=== PATIENT | male | born 1975 | race Caucasian/White ===

== ENCOUNTER 2018-02-23 19:28 | Emergency (ER) | payer SELFPAY ==
[2018-02-23 20:35] LABS: Absolute Lymphocytes (CBC) 2.5 K/uL (0.7-4.9); Absolute Monocytes 0.8 K/uL (0.1-1.3); Absolute Neutrophil 10.5 K/uL (1.8-8.0); Eosinophils % 1.2 % (0-4.4); Hematocrit 47.5 % (39.6-49.0); MCH 30.3 pg (27.0-35.0); MCV 89.2 fL (80-100); MPV 7.9 fL (7.6-11.3); Monocytes % 5.8 % (3.3-12.3); RBC Red Blood Cell Count 5.32 M/uL (4.33-5.43)
[2018-02-23 20:39] LABS: Protime INR 1.14
[2018-02-23 20:58] LABS: ALT/SGPT 30 U/L (12-78); AST/SGOT 18 U/L (15-37); Albumin 3.4 g/dL (3.4-5.0); Alkaline Phosphatase 85 U/L (45-117); BUN Blood Urea Nitrogen 14 mg/dL (7-18); Bicarbonate 27 mmol/L (21-32); Bilirubin Direct 0.1 mg/dL (0-0.2); Bilirubin Total 0.4 mg/dL (0.2-1.0); Glucose Level 163 mg/dL (74-106); Potassium 3.7 mmol/L (3.5-5.1); Protein, Total 7.5 g/dL (6.4-8.2); Sodium Level 141 mmol/L (136-145)
[2018-02-23] MEDS ORDERED: NICOTINE 21 MG/PAT TD ONE (22:47)
[2018-02-23] MEDS ORDERED: NA CHLORIDE 0.9% 1,000 ML ONE (22:52)
[2018-02-24 00:16] LABS: Barbiturates NEGATIVE (NEGATIVE); Benzodiazepines NEGATIVE (NEGATIVE); Cocaine NEGATIVE (NEGATIVE); METHAMPHETAM NEGATIVE (NEGATIVE); Methadone NEGATIVE (NEGATIVE); Opiates NEGATIVE (NEGATIVE); Phencyclidine NEGATIVE (NEGATIVE); THC Cannibis NEGATIVE (NEGATIVE)
[2018-02-24 02:54] LABS: Absolute Lymphocytes (CBC) 3.9 K/uL (0.7-4.9); Absolute Monocytes 1.2 K/uL (0.1-1.3); Absolute Neutrophil 8.6 K/uL (1.8-8.0); Hematocrit 46.9 % (39.6-49.0); Lymphocytes % 27.8 % (15.3-44.8); MCV 88.5 fL (80-100); MPV 8.1 fL (7.6-11.3); Monocytes % 8.2 % (3.3-12.3)
[2018-02-24 04:03] LABS: Urine Blood NEGATIVE (NEG); Urine Glucose NEGATIVE (NEG); Urine Protein NEGATIVE (NEG); Urine Specific Gravity 1.025 (1.005-1.030)
--- NOTE | 2018-02-24 06:59 | EKG ---
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
--- NOTE | 2018-02-24 11:41 | ER ---
Nurse's Notes [facility] Name: Yassine Guerrero Age: 42 yrs Sex: Male : 1975 Arrival Date: 02/23/2018 Time: 19:30 Bed 5 Private MD: Diagnosis: Suicidal ideations Presentation: 02/23 19:41 Presenting complaint: EMS states: EMS reports pt stated he was walking around town and ea had plan to hang himself with an extension cord but decided to call for help instead. Pt alert and oriented x 4. Transition of care: patient was not received from another setting of care. Onset of symptoms was February 23, 2018. Risk Assessment: Do you want to hurt yourself or someone else? Patient reports desire/thoughts of hurting themselves or someone else. Provider notified. Risk Assessment: Do you want to hurt yourself or someone else?. Initial Sepsis Screen: Does the patient meet any 2 criteria? No. Patient's initial sepsis screen is negative. Does the patient have a suspected source of infection? No. Patient's initial sepsis screen is negative. Care prior to arrival: BP 127/73, Pulse: 122, no complaints of pain. 19:41 Method Of Arrival: EMS: [facility] ea 19:41 Acuity: IRINEO 2 ea Triage Assessment: 19:49 General: Appears uncomfortable, Behavior is cooperative, crying. Pain: Denies pain. ea Cardiovascular: Patient's skin is warm and dry. Respiratory: Airway is patent Respiratory effort is even, unlabored, Respiratory pattern is regular, symmetrical. Derm: Skin is pink, warm \T\ dry. Musculoskeletal: Circulation, motion, and sensation intact. 19:49 General: Pt reports he is having SI and had a plan earlier this evening. ea Historical: - Allergies: 19:48 No Known Allergies; ea - Home Meds: 19:48 None [Active]; ea - PMHx: 19:48 Bipolar disorder; PTSD; Rheumatoid Arthritis; CPVC; ea - PSHx: 19:48 tendon reconstruction; ea - Immunization history:: Adult Immunizations up to date. - Social history:: Smoking status: Patient uses tobacco products, smokes one pack cigarettes per day. - Ebola Screening: : No symptoms or risks identified at this time. Screenin:51 Abuse screen: Denies threats or abuse. Nutritional screening: No deficits noted. ea Tuberculosis screening: No symptoms or risk factors identified. Fall Risk None identified. Assessment: 19:50 Reassessment: see triage assessment. ea 20:50 Reassessment: Patient and/or family updated on plan of care and expected duration. Pain ea level reassessed. Patient is alert, oriented x 3, equal unlabored respirations, skin warm/dry/pink. 21:00 Reassessment: Patient and/or family updated on plan of care and expected duration. Pain ea level reassessed. Patient is alert, oriented x 3, equal unlabored respirations, skin warm/dry/pink. 22:00 Reassessment: Patient and/or family updated on plan of care and expected duration. Pain ea level reassessed. Patient is alert, oriented x 3, equal unlabored respirations, skin warm/dry/pink. 23:50 Reassessment: Patient and/or family updated on plan of care and expected duration. Pain ea level reassessed. Patient is alert, oriented x 3, equal unlabored respirations, skin warm/dry/pink. 02/24 00:15 Reassessment: Pt resting with eyes closed, respirations even and unlabored. Chest ea expansions even and symmetrical. No s/s of pain or discomfort noted at this time. Sitter at bedside. 01:00 Reassessment: Patient and/or family updated on plan of care and expected duration. Pain ea level reassessed. Patient is alert, oriented x 3, equal unlabored respirations, skin warm/dry/pink. [place] at bedside. 02:50 Reassessment: Patient and/or family updated on plan of care and expected duration. Pain ea level reassessed. Patient is alert, oriented x 3, equal unlabored respirations, skin warm/dry/pink. Sitter at bedside. 03:08 Reassessment: Patient and/or family updated on plan of care and expected duration. Pain ea level reassessed. Patient is alert, oriented x 3, equal unlabored respirations, skin warm/dry/pink. sitter at bedside. Pt removed nicotine patch stated he needed to go outside to smoke a cigarette. Provider notified. Pt educated on not being able to go out to smoke per policy, nicotine patch offered, pt refused at this time. Pt instructed on need for transfer, verbalized the understanding of instruction. 04:35 Reassessment: Patient and/or family updated on plan of care and expected duration. Pain ea level reassessed. Patient is alert, oriented x 3, equal unlabored respirations, skin warm/dry/pink. 05:43 Reassessment: Patient and/or family updated on plan of care and expected duration. Pain ea level reassessed. Patient is alert, oriented x 3, equal unlabored respirations, skin warm/dry/pink. sitter at bedside. 06:09 Reassessment: Patient and/or family updated on plan of care and expected duration. Pain ea level reassessed. Patient is alert, oriented x 3, equal unlabored respirations, skin warm/dry/pink. Sitter at bedside. 07:22 Reassessment: Pt is resting at this time, eyes closed, respirations remain even and ss unlabored. [place] building tech remains sitter with patient. 08:15 Reassessment: Patient appears in no apparent distress at this time. Patient and/or hb family updated on plan of care and expected duration. Pain level reassessed. Patient is alert, oriented x 3, equal unlabored respirations, skin warm/dry/pink. Sitter remains at bedside. 09:15 Reassessment: Patient appears in no apparent distress at this time. No changes from hb previously documented assessment. Patient and/or family updated on plan of care and expected duration. Pain level reassessed. Patient is alert, oriented x 3, equal unlabored respirations, skin warm/dry/pink. Sitter remains at bedside. 10:15 Reassessment: Patient appears in no apparent distress at this time. Patient and/or hb family updated on plan of care and expected duration. Pain level reassessed. Patient is alert, oriented x 3, equal unlabored respirations, skin warm/dry/pink. Sitter remains at bedside. 11:54 Reassessment: Patient appears in no apparent distress at this time. Patient and/or ss family updated on plan of care and expected duration. Pain level reassessed. Report called to ZULAY Bravo at [facility] in [place]. Vital Signs: 02/23 19:48 BP 161 / 78; Pulse 112; Resp 18; Temp 98; Pulse Ox 97% on R/A; Weight 181.44 kg; Height ea 5 ft. 8 in. (172.72 cm); Pain 0/10; 23:59 BP 144 / 83; Pulse 82; Resp 20; Pulse Ox 97% on R/A; ra1 02/24 04:05 BP 142 / 83; Pulse 74; Resp 20; Temp 98.4; Pulse Ox 94% on R/A; ra1 07:40 BP 145 / 82; Pulse 73; Resp 18; Temp 97.1; Pulse Ox 94% ; Pain 0/10; ap 11:23 BP 134 / 64; Pulse 75; Resp 18; Temp 98.0; Pulse Ox 95% ; Pain 0/10; ap 02/23 19:48 Body Mass Index 60.82 (181.44 kg, 172.72 cm) ea ED Course: 02/23 15:00 Safety checks: Items removed: yes. Door open/sign placed on door: yes. Family/friend oe present: no. Sitter present: Yes. 19:30 Patient arrived in ED. al2 19:30 Safety checks: Items removed: yes. Door open/sign placed on door: yes. Family/friend oe present: no. Sitter present: Yes. 19:40 Yessica Escamilla RN is Primary Nurse. ea 19:40 Safety Checks: Personal items have been removed. Items given to security The door is ea open or patient has been placed in a hallway bed/chair. Sitter present at this time. 19:41 Patient has correct armband on for positive identification. Placed in gown. Bed in low ea position. Call light in reach. Valuables inventory done. Pt valuables given to security. Sitter at bedside, room doors open. Pt has no visitors at this time. . 19:45 Safety Checks: Personal items have been removed. The door is open or patient has been ea placed in a hallway bed/chair. Sitter present at this time. 19:45 Safety checks: Items removed: yes. Door open/sign placed on door: yes. Family/friend oe present: no. Sitter present: Yes. 19:46 Triage completed. ea 19:50 Manan Madsen MD is Attending Physician. 19:50 Arm band placed on right wrist. Patient placed in an exam room, on a stretcher, on ea pulse oximetry. 20:00 Safety Checks: Personal items have been removed. The door is open or patient has been ea placed in a hallway bed/chair. Sitter present at this time. 20:00 Safety checks: Items removed: yes. Door open/sign placed on door: yes. Family/friend oe present: no. Sitter present: Yes. 20:15 Safety Checks: Personal items have been removed. The door is open or patient has been ea placed in a hallway bed/chair. Sitter present at this time. 20:15 Safety checks: Items removed: yes. Door open/sign placed on door: yes. Family/friend oe present: no. Sitter present: Yes. 20:30 Safety Checks: Personal items have been removed. The door is open or patient has been ea placed in a hallway bed/chair. Sitter present at this time. 20:30 Safety checks: Items removed: yes. Door open/sign placed on door: yes. Family/friend oe present: no. Sitter present: Yes. 20:45 Safety checks: Items removed: yes. Door open/sign placed on door: yes. Family/friend oe present: no. Sitter present: Yes. 21:00 Safety checks: Items removed: yes. Door open/sign placed on door: yes. Family/friend oe present: no. Sitter present: Yes. 21:12 Inserted saline lock: 20 gauge in right antecubital area, using aseptic technique. oe Blood collected. 21:15 Safety checks: Items removed: yes. Door open/sign placed on door: yes. Family/friend oe present: no. Sitter present: Yes. 21:30 Safety checks: Items removed: yes. Door open/sign placed on door: yes. Family/friend oe present: no. Sitter present: Yes. 21:45 Safety checks: Items removed: yes. Door open/sign placed on door: yes. Family/friend oe present: no. Sitter present: Yes. 22:00 Safety checks: Items removed: yes. Door open/sign placed on door: yes. Family/friend oe present: no. Sitter present: Yes. 22:15 Safety Checks: Personal items have been removed. The door is open or patient has been ra1 placed in a hallway bed/chair. There are no family/friend visitors at this time Sitter present at this time. 22:30 Safety Checks: Personal items have been removed. The door is open or patient has been ra1 placed in a hallway bed/chair. There are no family/friend visitors at this time Sitter present at this time. 22:38 Attending Physician role handed off by Manan Madsen MD pkl 22:38 Clark Kramer MD is Attending Physician. pkl 22:45 Safety Checks: Personal items have been removed. The door is open or patient has been ra1 placed in a hallway bed/chair. There are no family/friend visitors at this time Sitter present at this time. 23:00 Safety Checks: Personal items have been removed. The door is open or patient has been ra1 placed in a hallway bed/chair. There are no family/friend visitors at this time Sitter present at this time. 23:15 Safety Checks: Personal items have been removed. The door is open or patient has been ra1 placed in a hallway bed/chair. There are no family/friend visitors at this time Sitter present at this time. 23:30 Safety Checks: Personal items have been removed. The door is open or patient has been ra1 placed in a hallway bed/chair. There are no family/friend visitors at this time Sitter present at this time. 23:45 Safety Checks: Personal items have been removed. The door is open or patient has been ra1 placed in a hallway bed/chair. There are no family/friend visitors at this time Sitter present at this time. Stood at bedside, gait steady. void per urinal, clear, dark yellow urine, with odor, specimen collected. 02/24 00:00 Safety Checks: Personal items have been removed. The door is open or patient has been ra1 placed in a hallway bed/chair. There are no family/friend visitors at this time Sitter present at this time. 00:15 Safety Checks: Personal items have been removed. The door is open or patient has been ra1 placed in a hallway bed/chair. There are no family/friend visitors at this time Sitter present at this time. 00:29 Safety Checks: Personal items have been removed. The door is open or patient has been ra1 placed in a hallway bed/chair. There are no family/friend visitors at this time Sitter present at this time. 00:45 Safety Checks: Personal items have been removed. The door is open or patient has been ra1 placed in a hallway bed/chair. There are no family/friend visitors at this time Sitter present at this time. 01:00 Safety Checks: Personal items have been removed. The door is open or patient has been ra1 placed in a hallway bed/chair. There are no family/friend visitors at this time Sitter present at this time. 01:15 Safety Checks: Personal items have been removed. The door is open or patient has been ra1 placed in a hallway bed/chair. There are no family/friend visitors at this time Sitter present at this time. 01:29 Safety Checks: Personal items have been removed. The door is open or patient has been ra1 placed in a hallway bed/chair. There are no family/friend visitors at this time Sitter present at this time. Other: Ticket Broker from [facility] at bedside. IVF complete. 01:45 Safety Checks: Personal items have been removed. The door is open or patient has been ra1 placed in a hallway bed/chair. There are no family/friend visitors at this time Sitter present at this time. 02:00 Safety Checks: Personal items have been removed. The door is open or patient has been ra1 placed in a hallway bed/chair. There are no family/friend visitors at this time Sitter present at this time. Other: IVF complete. 20G RAC flushed with 10cc NS, 5cc blood wasted, 3cc blood obtained for labs, then flushed with 10cc NS, tolerated well. 02:15 Safety Checks: Personal items have been removed. The door is open or patient has been ra1 placed in a hallway bed/chair. There are no family/friend visitors at this time Sitter present at this time. Other: Crying. Calm and cooperative, following commands. 02:30 Safety Checks: Personal items have been removed. The door is open or patient has been ra1 placed in a hallway bed/chair. There are no family/friend visitors at this time Sitter present at this time. Other: Continues sitting up in bed. no complaints or concerns expressed. 02:45 Safety Checks: Personal items have been removed. The door is open or patient has been ra1 placed in a hallway bed/chair. There are no family/friend visitors at this time Sitter present at this time. 03:00 Safety Checks: Personal items have been removed. The door is open or patient has been ra1 placed in a hallway bed/chair. There are no family/friend visitors at this time Sitter present at this time. Other: Patient removed his nicotine patch from [facility] and disposed into trash bin. 03:15 Safety Checks: Personal items have been removed. The door is open or patient has been ra1 placed in a hallway bed/chair. There are no family/friend visitors at this time Sitter present at this time. 03:30 Safety Checks: Personal items have been removed. The door is open or patient has been ra1 placed in a hallway bed/chair. There are no family/friend visitors at this time Sitter present at this time. 03:45 Safety Checks: Personal items have been removed. The door is open or patient has been ra1 placed in a hallway bed/chair. There are no family/friend visitors at this time Sitter present at this time. Other: Sitting up in bed, watching on. 04:00 Safety Checks: Personal items have been removed. The door is open or patient has been ra1 placed in a hallway bed/chair. There are no family/friend visitors at this time Sitter present at this time. 04:15 Safety Checks: Personal items have been removed. The door is open or patient has been ra1 placed in a hallway bed/chair. There are no family/friend visitors at this time Sitter present at this time. Other: Mental Health Officer at bedside. Patient calm and cooperative. 04:30 Safety Checks: Personal items have been removed. The door is open or patient has been ra1 placed in a hallway bed/chair. There are no family/friend visitors at this time Sitter present at this time. Other: Stands at bedside. Voids per urinal, 350cc of clear dark yellow urine noted. 04:45 Safety Checks: Personal items have been removed. The door is open or patient has been ra1 placed in a hallway bed/chair. There are no family/friend visitors at this time Sitter present at this time. 05:00 Safety Checks: Personal items have been removed. The door is open or patient has been ra1 placed in a hallway bed/chair. There are no family/friend visitors at this time Sitter present at this time. 05:15 Safety Checks: Personal items have been removed. The door is open or patient has been ra1 placed in a hallway bed/chair. There are no family/friend visitors at this time Sitter present at this time. 05:30 Safety Checks: Personal items have been removed. The door is open or patient has been ra1 placed in a hallway bed/chair. There are no family/friend visitors at this time Sitter present at this time. 05:45 Safety Checks: Personal items have been removed. The door is open or patient has been ra1 placed in a hallway bed/chair. There are no family/friend visitors at this time Sitter present at this time. Other: Lying in bed,supine. No distress expressed or observed. Resp even and unlabored. 06:00 Safety Checks: Personal items have been removed. The door is open or patient has been ra1 placed in a hallway bed/chair. There are no family/friend visitors at this time Sitter present at this time. 06:15 Safety Checks: Personal items have been removed. The door is open or patient has been ra1 placed in a hallway bed/chair. There are no family/friend visitors at this time Sitter present at this time. 06:29 Safety Checks: Personal items have been removed. The door is open or patient has been ra1 placed in a hallway bed/chair. There are no family/friend visitors at this time Sitter present at this time. Other: AAOx4. Ambulating in room, gait steady. 06:45 Safety Checks: Personal items have been removed. The door is open or patient has been ra1 placed in a hallway bed/chair. There are no family/friend visitors at this time Sitter present at this time. Other: Resting in bed, lying on left side. resp even and unlabored. no distress. 07:00 Safety Checks: Personal items have been removed. The door is open or patient has been ra1 placed in a hallway bed/chair. There are no family/friend visitors at this time Sitter present at this time. 07:01 Report given to Oriana BISWAS and Pepper BISWAS. daniel 07:02 Safety checks: Items removed: yes. Door open/sign placed on door: yes. Family/friend em1 present: no. Sitter present: Yes. 07:11 Beto Overton PA is PHCP. cp 07:15 Safety checks: Items removed: yes. Door open/sign placed on door: yes. Family/friend em1 present: no. Sitter present: Yes. 07:30 Safety checks: Items removed: yes. Door open/sign placed on door: yes. Family/friend ap present: no. Sitter present: Yes. 07:45 Safety checks: Items removed: yes. Door open/sign placed on door: yes. Family/friend ap present: no. Sitter present: Yes. Safety checks: Items removed: yes. 08:00 Safety checks: Items removed: yes. Door open/sign placed on door: yes. Family/friend ap present: no. Sitter present: Yes. 08:15 Safety checks: Items removed: yes. Door open/sign placed on door: yes. Family/friend ap present: no. Sitter present: Yes. 08:30 Safety checks: Items removed: yes. Door open/sign placed on door: yes. Family/friend ap present: no. Sitter present: Yes. 08:45 Safety checks: Items removed: yes. Door open/sign placed on door: yes. Family/friend ap present: no. Sitter present: Yes. 09:00 Safety checks: Items removed: yes. Door open/sign placed on door: yes. Family/friend ap present: no. Sitter present: Yes. 09:15 Safety checks: Items removed: yes. Door open/sign placed on door: yes. Family/friend ap present: no. Sitter present: Yes. 09:30 Safety checks: Items removed: yes. Door open/sign placed on door: no. Family/friend ap present: no. Sitter present: Yes. 09:45 Safety checks: Items removed: yes. Door open/sign placed on door: yes. Family/friend ap present: no. Sitter present: Yes. 10:00 Safety checks: Items removed: yes. Door open/sign placed on door: yes. Family/friend ap present: no. Sitter present: Yes. 10:15 Safety checks: Items removed: yes. Door open/sign placed on door: yes. Family/friend ap present: no. Sitter present: Yes. 10:30 Safety checks: Items removed: yes. Door open/sign placed on door: yes. Family/friend ap present: Sitter present: Yes. No. 10:45 Safety checks: Items removed: yes. Door open/sign placed on door: yes. Family/friend ap present: yes. no. Sitter present: Yes. 11:00 Safety checks: Items removed: yes. Door open/sign placed on door: yes. Family/friend ap present: yes. no. Sitter present: Yes. 11:15 Safety checks: Items removed: yes. Door open/sign placed on door: yes. Family/friend ap present: no. Sitter present: Yes. 11:30 Safety checks: Items removed: yes. Door open/sign placed on door: yes. Family/friend em1 present: no. Sitter present: Yes. 11:45 Safety checks: Items removed: yes. Door open/sign placed on door: yes. Family/friend em1 present: no. Sitter present: Yes. 12:00 Safety checks: Items removed: yes. Door open/sign placed on door: yes. Family/friend em1 present: no. Sitter present: Yes. 12:15 Safety checks: Items removed: yes. Door open/sign placed on door: yes. Family/friend em1 present: no. Sitter present: Yes. 12:30 Safety checks: Items removed: yes. Door open/sign placed on door: yes. Family/friend ap present: yes. no. Sitter present: Yes. 12:45 Safety checks: Items removed: yes. Door open/sign placed on door: yes. Family/friend ap present: no. Sitter present: Yes. No. 13:00 Safety checks: Items removed: yes. Door open/sign placed on door: yes. Family/friend ap present: no. Sitter present: Yes. 13:15 Safety checks: Items removed: yes. Door open/sign placed on door: yes. Family/friend ap present: no. Sitter present: Yes. 13:25 No provider procedures requiring assistance completed. IV discontinued, intact, ss bleeding controlled, No redness/swelling at site. Pressure dressing applied. Administered Medications: 02/23 22:48 Drug: NS 0.9% 1000 ml Route: IV; Rate: 1000 ml; Site: right antecubital; ea 22:49 Drug: Nicotine 21 mg/24 hr 1 patches {Note: patch placed on right arm.} Route: ea Transdermal; Site: affected area; Outcome: 02/24 11:40 ER care complete, transfer ordered by . cp 11:54 Condition: good ss 11:54 Instructed on the need for transfer. 13:25 Transferred by ground EMS Transfer form completed. Note: To Anisha Pedrocox monett 13:26 Patient left the ED. ss Signatures: Clark Kramer MD MD pkl [place], [place] em1 Oriana Urbina RN RN ss Beto Overton PA PA cp Ponce, Ana ap Baxter, Heather, RN RN Irving Coon oe Yessica Escamilla RN RN ea Starr, Gregory, MD MD gs Love, Toro Patel ra Corrections: (The following items were deleted from the chart) 02/23 21:17 21:15 Safety checks: Items removed: yes. Door open/sign placed on door: yes. oe Family/friend present: no. Sitter present: Yes. oe 21:20 10:00 Safety checks: Items removed: yes. Door open/sign placed on door: yes. oe Family/friend present: no. Sitter present: Yes. oe 22:22 22:19 Safety Checks: Personal items have been removed. The door is open or patient has ra1 been placed in a hallway bed/chair. There are no family/friend visitors at this time Sitter present at this time. ra1 23:50 23:47 Safety Checks: Personal items have been removed. The door is open or patient has ra1 been placed in a hallway bed/chair. There are no family/friend visitors at this time Sitter present at this time. Stood at bedside, gait steady. void per urinal, clear, dark yellow urine, with odor, specimen collected. ra1 02/24 00:23 00:22 Safety Checks: Personal items have been removed. The door is open or patient has ra1 been placed in a hallway bed/chair. There are no family/friend visitors at this time Sitter present at this time. ra1 03:19 03:08 Reassessment: Patient and/or family updated on plan of care and expected ea duration. Pain level reassessed. Patient is alert, oriented x 3, equal unlabored respirations, skin warm/dry/pink. sitter at bedside ea 04:22 04:15 Safety Checks: Personal items have been removed. The door is open or patient has ra1 been placed in a hallway bed/chair. There are no family/friend visitors at this time Sitter present at this time. ra1
--- NOTE | 2018-02-24 11:41 | EDPHYS ---
Physician Documentation [facility] Name: Yassine Guerrero Age: 42 yrs Sex: Male : 1975 Arrival Date: 02/23/2018 Time: 19:30 Bed 5 Private MD: ED Physician Clark Kramer HPI: 02/23 20:59 This 42 yrs old Male presents to ER via EMS with complaints of Suicidal gs Ideation. 20:59 The patient presents to the emergency department with anxiety, depression, suicide gs ideation. Onset: The symptoms/episode began/occurred today. Past psychiatric history: Prior diagnosis: bipolar disorder. Associated signs and symptoms: Pertinent negatives: chest pain, chills, delusions, hallucinations. Severity of symptoms: At their worst the symptoms were severe in the emergency department the symptoms are unchanged. The patient has experienced similar episodes in the past, a few times. Historical: - Allergies: 19:48 No Known Allergies; ea - Home Meds: 19:48 None [Active]; ea - PMHx: 19:48 Bipolar disorder; PTSD; Rheumatoid Arthritis; CPVC; ea - PSHx: 19:48 tendon reconstruction; ea - Immunization history:: Adult Immunizations up to date. - Social history:: Smoking status: Patient uses tobacco products, smokes one pack cigarettes per day. - Ebola Screening: : No symptoms or risks identified at this time. ROS: 20:59 All other systems are negative. gs Exam: 20:59 Head/Face: Normocephalic, atraumatic. Eyes: Pupils equal round and reactive to light, gs extra-ocular motions intact. Lids and lashes normal. Conjunctiva and sclera are non-icteric and not injected. Cornea within normal limits. Periorbital areas with no swelling, redness, or edema. ENT: Nares patent. No nasal discharge, no septal abnormalities noted. Tympanic membranes are normal and external auditory canals are clear. Oropharynx with no redness, swelling, or masses, exudates, or evidence of obstruction, uvula midline. Mucous membranes moist. Neck: Trachea midline, no thyromegaly or masses palpated, and no cervical lymphadenopathy. Supple, full range of motion without nuchal rigidity, or vertebral point tenderness. No Meningismus. Chest/axilla: Normal chest wall appearance and motion. Nontender with no deformity. No lesions are appreciated. Cardiovascular: Regular rate and rhythm with a normal S1 and S2. No gallops, murmurs, or rubs. Normal PMI, no JVD. No pulse deficits. Respiratory: Lungs have equal breath sounds bilaterally, clear to auscultation and percussion. No rales, rhonchi or wheezes noted. No increased work of breathing, no retractions or nasal flaring. Abdomen/GI: Soft, non-tender, with normal bowel sounds. No distension or tympany. No guarding or rebound. No evidence of tenderness throughout. Back: No spinal tenderness. No costovertebral tenderness. Full range of motion. Skin: Warm, dry with normal turgor. Normal color with no rashes, no lesions, and no evidence of cellulitis. MS/ Extremity: Pulses equal, no cyanosis. Neurovascular intact. Full, normal range of motion. Neuro: Awake and alert, GCS 15, oriented to person, place, time, and situation. Cranial nerves II-XII grossly intact. Motor strength 5/5 in all extremities. Sensory grossly intact. Cerebellar exam normal. Normal gait. 20:59 Constitutional: The patient appears alert, awake. 20:59 Psych: Behavior/mood is sad. Affect is flat, Oriented to person, place, time, Patient having thoughts of suicide. Plan for suicide is hang self Judgement / Insight is impaired. Delusions/hallucinations are not present. Vital Signs: 19:48 BP 161 / 78; Pulse 112; Resp 18; Temp 98; Pulse Ox 97% on R/A; Weight 181.44 kg; Height ea 5 ft. 8 in. (172.72 cm); Pain 0/10; 23:59 BP 144 / 83; Pulse 82; Resp 20; Pulse Ox 97% on R/A; ra1 02/24 04:05 BP 142 / 83; Pulse 74; Resp 20; Temp 98.4; Pulse Ox 94% on R/A; ra1 07:40 BP 145 / 82; Pulse 73; Resp 18; Temp 97.1; Pulse Ox 94% ; Pain 0/10; ap 11:23 BP 134 / 64; Pulse 75; Resp 18; Temp 98.0; Pulse Ox 95% ; Pain 0/10; ap 02/23 19:48 Body Mass Index 60.82 (181.44 kg, 172.72 cm) ea MDM: 02/23 19:57 Patient medically screened. gs 20:59 Differential diagnosis: drug withdrawal. acute psychotic break, depression, si. Data gs reviewed: vital signs, nurses notes, lab test result(s), EKG. Response to treatment: There is no appreciated change of the patient's symptoms at this time. 02/23 19:57 Order name: Acetaminophen 02/23 19:57 Order name: Basic Metabolic Panel 02/23 19:57 Order name: CBC with Diff; Complete Time: 22:39 02/23 19:57 Order name: ETOH Level; Complete Time: 22:39 02/23 19:57 Order name: Hepatic Function; Complete Time: 22:39 02/23 19:57 Order name: PT-INR; Complete Time: 22:39 02/23 19:57 Order name: Ptt, Activated; Complete Time: 22:39 02/23 19:57 Order name: Salicylate; Complete Time: 22:39 02/23 19:57 Order name: Urine Drug Screen; Complete Time: 04:53 02/23 19:57 Order name: Acetaminophen Level; Complete Time: 22:39 EDWV 02/23 19:57 Order name: Basic Metabolic Panel; Complete Time: 22:39 EDWV 02/23 23:46 Order name: Urine Dipstick--Ancillary (enter results); Complete Time: 04:53 02/24 01:08 Order name: CBC with Diff; Complete Time: 04:53 ea 02/23 19:57 Order name: EKG; Complete Time: 19:58 02/23 19:57 Order name: EKG - Nurse/Tech; Complete Time: 20:54 02/23 19:57 Order name: IV Saline Lock; Complete Time: 20:54 02/23 19:57 Order name: Labs collected and sent; Complete Time: 20:54 02/23 19:57 Order name: Urine Dipstick-Ancillary (obtain specimen); Complete Time: 20:54 02/24 07:31 Order name: Diet Regular; Complete Time: 07:31 ss Administered Medications: 22:48 Drug: NS 0.9% 1000 ml Route: IV; Rate: 1000 ml; Site: right antecubital; ea 22:49 Drug: Nicotine 21 mg/24 hr 1 patches {Note: patch placed on right arm.} Route: ea Transdermal; Site: affected area; Disposition: 02/24/18 11:40 Transfer ordered to Other Acute Care Facility. Diagnosis is Suicidal ideations. - Reason for transfer: Higher level of care. - Accepting physician is Nain Marquez. - Condition is Stable. - Problem is new. - Symptoms have improved. Signatures: Dispatcher [employer] EDClark García MD MD pkl Smirch, Shelby, RN RN ss Beto Overton PA PA cp Antunez, Elena, RN RN ea Starr, Gregory, MD MD gs Corrections: (The following items were deleted from the chart) 02/24 11:41 11:40 02/24/2018 11:40 Transfer ordered to Psych Facility. Diagnosis is Suicidal cp ideations. Reason for transfer: Higher level of care. Accepting physician is Nain Marquez. Condition is Stable. Problem is new. Symptoms have improved. cp 13:26 11:41 02/24/2018 11:40 Transfer ordered to Other Acute Care Facility. Diagnosis is ss Suicidal ideations. Reason for transfer: Higher level of care. Accepting physician is Nain Marquez. Condition is Stable. Problem is new. Symptoms have improved. cp
== END 2018-02-24 13:26 ==
LOC: ER 19:28
DX: R45.851 Suicidal ideations (principal); F17.210 Nicotine dependence, cigarettes, uncomplicated
CPT/HCPCS: 36415; 80048; 80076; 80307; 80320; 80329; 81003; 85025; 85610; 85730; 93005; 99285; J7030

== ENCOUNTER 2020-11-07 11:35 | Inpatient (IN) | payer OTHER, SELFPAY ==
--- OUTSIDE RECORDS SUMMARY | 2020-11-07 11:40 | XMS REPORT | Continuity of Care Document ---
:1975 Author Organization [facility] t Address [address] [place] [address] Care Team Providers Name Role Phone DR PAVEL AMEZCUA Attending Clinician Unavailable DR PAVEL AMEZCUA Admitting Clinician Unavailable Payers Payer Name Policy Type Policy Number Effective Date Expiration Date S ource Problems This patient has no known problems. Allergies, Adverse Reactions, Alerts Allergy Allergy Status Severity Reaction(s) Onset Inactive Treating Comm ents Source Name Type Date Date Clinician No Known DA Active U [facility] 5[facility]04 Clear Allergie 00:00: Green s [facility] NO KNOWN DA Active U 2000-0 [facility] CONTRAST 4-20 Clear MEDIA 00:00: Green [facility]ERG [address] [place] [address] NO KNOWN DA Active U 2000-0 [facility] OTHER 4-20 Clear ALLERGIE 00:00: Green S [address] [place] [address] No Known DA Active U 2000-0 [facility] Drug 4-20 Clear Allergie 00:00: Green s [facility] No Known DA Active U 2000-0 [facility] Food 4-20 Clear Allergie 00:00: Green s [facility] Medications This patient has no known medications. Procedures This patient has no known procedures. Encounters Start End Encounter Admission Attending Care Care Encounter Source Date/Time Date/Time Type Type Clinicians Facility Department ID 2019-07-15 2019-07-15 Emergency E ZHANE AMEZCUA [facility] [id number] 12:28:00 13:10:00 [facility] Results Test Description Test Time Test Comments Results Result Comments Source GLUBED 2020-10-12 12:17:00 Test Item Value Reference Range Interpretation Comme nts GLUBED (test code = GLUBED) 215 mg/dL 74-106 H Performed by certified 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[facility] [id number] 12:17:00 Test Item Value Reference Range Interpretation Comments GLUBED (test code = 213 mg/dL 74-106 H Performe d by certified GLUBED) 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[facility] [id number] 12:16:00 Test Item Value Reference Range Interpretation Comments GLUBED (test code = 156 mg/dL 74-106 H Performe d by certified GLUBED) 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[facility] [id number] 12:15:00 Test Item Value Reference Range Interpretation Comments GLUBED (test code = 183 mg/dL 74-106 H Performe d by certified GLUBED) 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[facility] [id number] 12:15:00 Test Item Value Reference Range Interpretation Comments GLUBED (test code 190 mg/dL 74-106 H Performed by certified = GLUBED) 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 [id number] 12:14:00 Test Item Value Reference Range Interpretation Comments GLUBED (test code 212 mg/dL 74-106 H Performed by certified = GLUBED) 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 [id number] 12:14:00 Test Item Value Reference Range Interpretation Comments GLUBED (test code = 263 mg/dL 74-106 H Performe d by certified GLUBED) 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[facility] [id number] 16:11:00 Test Item Value Reference Range Interpretation Comments GLUBED (test code = 189 mg/dL 74-106 H Performe d by certified GLUBED) 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[facility] [id number] 10:41:00 Test Item Value Reference Range Interpretation Comments GLUBED (test code = 182 mg/dL 74-106 H Performe d by certified GLUBED) 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[facility] [id number] 20:48:00 Test Item Value Reference Range Interpretation Comments GLUBED (test code = 198 mg/dL 74-106 H Performe d by certified GLUBED) 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[facility] [id number] 16:01:00 Test Item Value Reference Range Interpretation Comments GLUBED (test code = 177 mg/dL 74-106 H Performe d by certified GLUBED) 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[facility] [id number] 11:42:00 Test Item Value Reference Range Interpretation Comments GLUBED (test code = 174 mg/dL 74-106 H Performe d by certified GLUBED) 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[facility] CBC W/AUTO [id number] 06:22:00 Test Item Value Reference Range Interpretation Comments WHITE BLOOD CELL (test 12.0 K/mm3 4.5-12.5 N code = WBC) RED BLOOD CELL (test code 4.89 mill/mm3 4.0-5.8 N = RBC) HEMOGLOBIN (test code = 12.6 gram/dL 13.0-17.5 L HGB) HEMATOCRIT (test code = 42.6 % 42.0-52.0 N HCT) MEAN CELL VOLUME (test 87.1 fL 80-98 N code = MCV) MEAN CELL HGB (test code 25.8 picogram 27.0-33.0 L = MCH) MEAN CELL HGB 29.6 gram/dL 33.0-36.0 L CONCETRATION (test code = MCHC) RED CELL DISTRIBUTION 15.5 % 11.6-16.2 N WIDTH (test code = RDW) RED CELL DISTRIBUTION 49.1 fL 37.0-51.0 N WIDTH SD (test code = RDW-SD) PLATELET COUNT (test code 347 K/mm3 150-450 N = PLT) MEAN PLATELET VOLUME 9.1 fL 6.7-11.0 N (test code = MPV) NEUTROPHIL % (test code = 70.0 % 39.0-69.0 H NT%) IMMATURE GRANULOCYTE % 0.4 % 0.0-5.0 N (test code = IG%) LYMPHOCYTE % (test code = 18.2 % 25.0-55.0 L LY%) MONOCYTE % (test code = 8.0 % 0.0-10.0 N MO%) EOSINOPHIL % (test code = 2.7 % 0.0-5.0 N EO%) BASOPHIL % (test code = 0.7 % 0.0-1.0 N BA%) NUCLEATED RBC % (test 0.0 % 0-0 N code = NRBC%) NEUTROPHIL # (test code = 8.41 K/mm3 1.8-7.7 H NT#) IMMATURE GRANULOCYTE # 0.05 x10 3/uL 0-0.03 H (test code = IG#) LYMPHOCYTE # (test code = 2.19 K/mm3 1.0-5.0 N LY#) MONOCYTE # (test code = 0.96 K/mm3 0-0.8 H MO#) EOSINOPHIL # (test code = 0.33 K/mm3 0.0-0.5 N EO#) BASOPHIL # (test code = 0.08 K/mm3 0.0-0.2 N BA#) NUCLEATED RBC # (test 0.00 K/mm3 0.0-0.1 N code = NRBC#) MANUAL DIFF REQUIRED NO, ONLY SCAN NEEDED (test code = MDIFF) DIFFERENTIAL [id number] 06:22:00 Test Item Value Reference Range Interpretation Comments STAIN ACCEPTABILITY (test STAIN ACCEPTABLE code = STN ACCEPTABLE) MORPHOLOGY COMMENT (test NORMAL code = MOC) PLATELET ESTIMATE (test code ADEQUATE = PLTEST) PLATELET MORPHOLOGY (test NORMAL code = PLTMORPH) BASIC METABOLIC [id number] 05:33:00 Test Item Value Reference Range Interpretation Comments SODIUM (test code = 135 mmol/L 136-145 L NA) POTASSIUM (test code 4.4 mmol/L 3.5-5.1 N = K) CHLORIDE (test code = 99.0 mmol/L 98-107 N CL) CARBON DIOXIDE (test 34.0 mmol/L 21-32 H code = CO2) ANION GAP (test code 6.4 10-20 L = GAP) GLUCOSE (test code = 195 mg/dL 74-106 H GLU) BLOOD UREA NITROGEN 10 mg/dL 7-18 N (test code = BUN) GLOMERULAR FILTRATION > 60 mL/min See_Comment Estima annita GFR by RATE (test code = using Yue fied MDRD GFR) formula.Chronic kidney disease is defined as eith er kidney damageor GFR <60 mL/min/1.73 m2 for >3 months. [Automated mess age] The system Need Fixed generated this result transmitted ref erence range: >=60. Th e reference range was not used to int erpret this result as normal/abnormal . CREATININE (test code 0.90 mg/dL 0.7-1.3 N = CREAT) BUN/CREATININE RATIO 11.6 10-20 N (test code = BUN/CREA) CALCIUM (test code = 8.5 mg/dL 8.5-10.1 N CA) CBC W/AUTO [id number] 05:01:00 Test Item Value Reference Range Interpretation Comments WHITE BLOOD CELL (test 12.0 K/mm3 4.5-12.5 N code = WBC) RED BLOOD CELL (test code 4.89 mill/mm3 4.0-5.8 N = RBC) HEMOGLOBIN (test code = 12.6 gram/dL 13.0-17.5 L HGB) HEMATOCRIT (test code = 42.6 % 42.0-52.0 N HCT) MEAN CELL VOLUME (test 87.1 fL 80-98 N code = MCV) MEAN CELL HGB (test code 25.8 picogram 27.0-33.0 L = MCH) MEAN CELL HGB 29.6 gram/dL 33.0-36.0 L CONCETRATION (test code = MCHC) RED CELL DISTRIBUTION 15.5 % 11.6-16.2 N WIDTH (test code = RDW) RED CELL DISTRIBUTION 49.1 fL 37.0-51.0 N WIDTH SD (test code = RDW-SD) PLATELET COUNT (test code 347 K/mm3 150-450 N = PLT) MEAN PLATELET VOLUME 9.1 fL 6.7-11.0 N (test code = MPV) NEUTROPHIL % (test code = 70.0 % 39.0-69.0 H NT%) IMMATURE GRANULOCYTE % 0.4 % 0.0-5.0 N (test code = IG%) LYMPHOCYTE % (test code = 18.2 % 25.0-55.0 L LY%) MONOCYTE % (test code = 8.0 % 0.0-10.0 N MO%) EOSINOPHIL % (test code = 2.7 % 0.0-5.0 N EO%) BASOPHIL % (test code = 0.7 % 0.0-1.0 N BA%) NUCLEATED RBC % (test 0.0 % 0-0 N code = NRBC%) NEUTROPHIL # (test code = 8.41 K/mm3 1.8-7.7 H NT#) IMMATURE GRANULOCYTE # 0.05 x10 3/uL 0-0.03 H (test code = IG#) LYMPHOCYTE # (test code = 2.19 K/mm3 1.0-5.0 N LY#) MONOCYTE # (test code = 0.96 K/mm3 0-0.8 H MO#) EOSINOPHIL # (test code = 0.33 K/mm3 0.0-0.5 N EO#) BASOPHIL # (test code = 0.08 K/mm3 0.0-0.2 N BA#) NUCLEATED RBC # (test 0.00 K/mm3 0.0-0.1 N code = NRBC#) MANUAL DIFF REQUIRED NO, ONLY SCAN NEEDED (test code = MDIFF) DIFFERENTIAL [id number] 05:01:00 Test Item Value Reference Range Interpretation Comments STAIN ACCEPTABILITY (test code = STN ACCEPTABLE) CABOT RINGS (test code = CAB) MORPHOLOGY COMMENT (test code = MOC) PLATELET ESTIMATE (test code = PLTEST) PLATELET MORPHOLOGY (test code = PLTMORPH) CBC W/AUTO [id number] 05:01:00 Test Item Value Reference Range Interpretation Comments WHITE BLOOD CELL (test 12.0 K/mm3 4.5-12.5 N code = WBC) RED BLOOD CELL (test code 4.89 mill/mm3 4.0-5.8 N = RBC) HEMOGLOBIN (test code = 12.6 gram/dL 13.0-17.5 L HGB) HEMATOCRIT (test code = 42.6 % 42.0-52.0 N HCT) MEAN CELL VOLUME (test 87.1 fL 80-98 N code = MCV) MEAN CELL HGB (test code 25.8 picogram 27.0-33.0 L = MCH) MEAN CELL HGB 29.6 gram/dL 33.0-36.0 L CONCETRATION (test code = MCHC) RED CELL DISTRIBUTION 15.5 % 11.6-16.2 N WIDTH (test code = RDW) RED CELL DISTRIBUTION 49.1 fL 37.0-51.0 N WIDTH SD (test code = RDW-SD) PLATELET COUNT (test code 347 K/mm3 150-450 N = PLT) MEAN PLATELET VOLUME 9.1 fL 6.7-11.0 N (test code = MPV) NEUTROPHIL % (test code = 70.0 % 39.0-69.0 H NT%) IMMATURE GRANULOCYTE % 0.4 % 0.0-5.0 N (test code = IG%) LYMPHOCYTE % (test code = 18.2 % 25.0-55.0 L LY%) MONOCYTE % (test code = 8.0 % 0.0-10.0 N MO%) EOSINOPHIL % (test code = 2.7 % 0.0-5.0 N EO%) BASOPHIL % (test code = 0.7 % 0.0-1.0 N BA%) NUCLEATED RBC % (test 0.0 % 0-0 N code = NRBC%) NEUTROPHIL # (test code = 8.41 K/mm3 1.8-7.7 H NT#) IMMATURE GRANULOCYTE # 0.05 x10 3/uL 0-0.03 H (test code = IG#) LYMPHOCYTE # (test code = 2.19 K/mm3 1.0-5.0 N LY#) MONOCYTE # (test code = 0.96 K/mm3 0-0.8 H MO#) EOSINOPHIL # (test code = 0.33 K/mm3 0.0-0.5 N EO#) BASOPHIL # (test code = 0.08 K/mm3 0.0-0.2 N BA#) NUCLEATED RBC # (test 0.00 K/mm3 0.0-0.1 N code = NRBC#) MANUAL DIFF REQUIRED NO, ONLY SCAN NEEDED (test code = MDIFF) DIFFERENTIAL [id number] 05:01:00 Test Item Value Reference Range Interpretation Comments STAIN ACCEPTABILITY (test code = STN ACCEPTABLE) CABOT RINGS (test code = CAB) MORPHOLOGY COMMENT (test code = MOC) PLATELET ESTIMATE (test code = PLTEST) PLATELET MORPHOLOGY (test code = PLTMORPH) CBC W/AUTO [id number] 05:01:00 Test Item Value Reference Range Interpretation Comments WHITE BLOOD CELL (test 12.0 K/mm3 4.5-12.5 N code = WBC) RED BLOOD CELL (test code 4.89 mill/mm3 4.0-5.8 N = RBC) HEMOGLOBIN (test code = 12.6 gram/dL 13.0-17.5 L HGB) HEMATOCRIT (test code = 42.6 % 42.0-52.0 N HCT) MEAN CELL VOLUME (test 87.1 fL 80-98 N code = MCV) MEAN CELL HGB (test code 25.8 picogram 27.0-33.0 L = MCH) MEAN CELL HGB 29.6 gram/dL 33.0-36.0 L CONCETRATION (test code = MCHC) RED CELL DISTRIBUTION 15.5 % 11.6-16.2 N WIDTH (test code = RDW) RED CELL DISTRIBUTION 49.1 fL 37.0-51.0 N WIDTH SD (test code = RDW-SD) PLATELET COUNT (test code 347 K/mm3 150-450 N = PLT) MEAN PLATELET VOLUME 9.1 fL 6.7-11.0 N (test code = MPV) NEUTROPHIL % (test code = 70.0 % 39.0-69.0 H NT%) IMMATURE GRANULOCYTE % 0.4 % 0.0-5.0 N (test code = IG%) LYMPHOCYTE % (test code = 18.2 % 25.0-55.0 L LY%) MONOCYTE % (test code = 8.0 % 0.0-10.0 N MO%) EOSINOPHIL % (test code = 2.7 % 0.0-5.0 N EO%) BASOPHIL % (test code = 0.7 % 0.0-1.0 N BA%) NUCLEATED RBC % (test 0.0 % 0-0 N code = NRBC%) NEUTROPHIL # (test code = 8.41 K/mm3 1.8-7.7 H NT#) IMMATURE GRANULOCYTE # 0.05 x10 3/uL 0-0.03 H (test code = IG#) LYMPHOCYTE # (test code = 2.19 K/mm3 1.0-5.0 N LY#) MONOCYTE # (test code = 0.96 K/mm3 0-0.8 H MO#) EOSINOPHIL # (test code = 0.33 K/mm3 0.0-0.5 N EO#) BASOPHIL # (test code = 0.08 K/mm3 0.0-0.2 N BA#) NUCLEATED RBC # (test 0.00 K/mm3 0.0-0.1 N code = NRBC#) MANUAL DIFF REQUIRED NO, ONLY SCAN NEEDED (test code = MDIFF) DIFFERENTIAL [id number] 05:01:00 Test Item Value Reference Range Interpretation Comments STAIN ACCEPTABILITY (test code = STN ACCEPTABLE) MORPHOLOGY COMMENT (test code = MOC) PLATELET ESTIMATE (test code = PLTEST) PLATELET MORPHOLOGY (test code = PLTMORPH) CBC W/AUTO [id number] 05:01:00 Test Item Value Reference Range Interpretation Comments WHITE BLOOD CELL (test 12.0 K/mm3 4.5-12.5 N code = WBC) RED BLOOD CELL (test code 4.89 mill/mm3 4.0-5.8 N = RBC) HEMOGLOBIN (test code = 12.6 gram/dL 13.0-17.5 L HGB) HEMATOCRIT (test code = 42.6 % 42.0-52.0 N HCT) MEAN CELL VOLUME (test 87.1 fL 80-98 N code = MCV) MEAN CELL HGB (test code 25.8 picogram 27.0-33.0 L = MCH) MEAN CELL HGB 29.6 gram/dL 33.0-36.0 L CONCETRATION (test code = MCHC) RED CELL DISTRIBUTION 15.5 % 11.6-16.2 N WIDTH (test code = RDW) RED CELL DISTRIBUTION 49.1 fL 37.0-51.0 N WIDTH SD (test code = RDW-SD) PLATELET COUNT (test code 347 K/mm3 150-450 N = PLT) MEAN PLATELET VOLUME 9.1 fL 6.7-11.0 N (test code = MPV) NEUTROPHIL % (test code = 70.0 % 39.0-69.0 H NT%) IMMATURE GRANULOCYTE % 0.4 % 0.0-5.0 N (test code = IG%) LYMPHOCYTE % (test code = 18.2 % 25.0-55.0 L LY%) MONOCYTE % (test code = 8.0 % 0.0-10.0 N MO%) EOSINOPHIL % (test code = 2.7 % 0.0-5.0 N EO%) BASOPHIL % (test code = 0.7 % 0.0-1.0 N BA%) NUCLEATED RBC % (test 0.0 % 0-0 N code = NRBC%) NEUTROPHIL # (test code = 8.41 K/mm3 1.8-7.7 H NT#) IMMATURE GRANULOCYTE # 0.05 x10 3/uL 0-0.03 H (test code = IG#) LYMPHOCYTE # (test code = 2.19 K/mm3 1.0-5.0 N LY#) MONOCYTE # (test code = 0.96 K/mm3 0-0.8 H MO#) EOSINOPHIL # (test code = 0.33 K/mm3 0.0-0.5 N EO#) BASOPHIL # (test code = 0.08 K/mm3 0.0-0.2 N BA#) NUCLEATED RBC # (test 0.00 K/mm3 0.0-0.1 N code = NRBC#) MANUAL DIFF REQUIRED NO, ONLY SCAN NEEDED (test code = MDIFF) DIFFERENTIAL [id number] 05:01:00 Test Item Value Reference Range Interpretation Comments STAIN ACCEPTABILITY (test code = STN ACCEPTABLE) CABOT RINGS (test code = CAB) MORPHOLOGY COMMENT (test code = MOC) PLATELET ESTIMATE (test code = PLTEST) PLATELET MORPHOLOGY (test code = PLTMORPH) [id number] 21:00:00 Test Item Value Reference Range Interpretation Comments GLUBED (test code = 211 mg/dL 74-106 H Performe d by certified GLUBED) 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[facility] [id number] 16:29:00 Test Item Value Reference Range Interpretation Comments GLUBED (test code = 158 mg/dL 74-106 H Performe d by certified GLUBED) 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[facility] [id number] 11:57:00 Test Item Value Reference Range Interpretation Comments GLUBED (test code = 101 mg/dL 74-106 N Performe d by certified GLUBED) 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[facility] CBC W/AUTO [id number] 09:46:00 Test Item Value Reference Range Interpretation Comments WHITE BLOOD CELL (test 10.5 K/mm3 4.5-12.5 N code = WBC) RED BLOOD CELL (test code 4.92 mill/mm3 4.0-5.8 N = RBC) HEMOGLOBIN (test code = 12.7 gram/dL 13.0-17.5 L HGB) HEMATOCRIT (test code = 43.4 % 42.0-52.0 N HCT) MEAN CELL VOLUME (test 88.2 fL 80-98 N code = MCV) MEAN CELL HGB (test code 25.8 picogram 27.0-33.0 L = MCH) MEAN CELL HGB 29.3 gram/dL 33.0-36.0 L CONCETRATION (test code = MCHC) RED CELL DISTRIBUTION 15.6 % 11.6-16.2 N WIDTH (test code = RDW) RED CELL DISTRIBUTION 49.7 fL 37.0-51.0 N WIDTH SD (test code = RDW-SD) PLATELET COUNT (test code 350 K/mm3 150-450 N = PLT) MEAN PLATELET VOLUME 9.3 fL 6.7-11.0 N (test code = MPV) NEUTROPHIL % (test code = 68.6 % 39.0-69.0 N NT%) IMMATURE GRANULOCYTE % 0.5 % 0.0-5.0 N (test code = IG%) LYMPHOCYTE % (test code = 20.2 % 25.0-55.0 L LY%) MONOCYTE % (test code = 7.5 % 0.0-10.0 N MO%) EOSINOPHIL % (test code = 2.3 % 0.0-5.0 N EO%) BASOPHIL % (test code = 0.9 % 0.0-1.0 N BA%) NUCLEATED RBC % (test 0.0 % 0-0 N code = NRBC%) NEUTROPHIL # (test code = 7.21 K/mm3 1.8-7.7 N NT#) IMMATURE GRANULOCYTE # 0.05 x10 3/uL 0-0.03 H (test code = IG#) LYMPHOCYTE # (test code = 2.12 K/mm3 1.0-5.0 N LY#) MONOCYTE # (test code = 0.79 K/mm3 0-0.8 N MO#) EOSINOPHIL # (test code = 0.24 K/mm3 0.0-0.5 N EO#) BASOPHIL # (test code = 0.09 K/mm3 0.0-0.2 N BA#) NUCLEATED RBC # (test 0.00 K/mm3 0.0-0.1 N code = NRBC#) MANUAL DIFF REQUIRED NO, ONLY SCAN NEEDED (test code = MDIFF) DIFFERENTIAL [id number] 09:46:00 Test Item Value Reference Range Interpretation Comments STAIN ACCEPTABILITY (test STAIN ACCEPTABLE code = STN ACCEPTABLE) MORPHOLOGY COMMENT (test NORMAL code = MOC) PLATELET ESTIMATE (test code ADEQUATE = PLTEST) PLATELET MORPHOLOGY (test NORMAL code = PLTMORPH) [id number] 08:20:00 Test Item Value Reference Range Interpretation Comments GLUBED (test code = 257 mg/dL 74-106 H Performe d by certified GLUBED) 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[facility] BASIC METABOLIC [id number] 07:03:00 Test Item Value Reference Range Interpretation Comments SODIUM (test code = 135 mmol/L 136-145 L NA) POTASSIUM (test code 4.1 mmol/L 3.5-5.1 N = K) CHLORIDE (test code = 98.0 mmol/L 98-107 N CL) CARBON DIOXIDE (test 36.0 mmol/L 21-32 H code = CO2) ANION GAP (test code 5.1 10-20 L = GAP) GLUCOSE (test code = 288 mg/dL 74-106 H GLU) BLOOD UREA NITROGEN 11 mg/dL 7-18 N (test code = BUN) GLOMERULAR FILTRATION > 60 mL/min See_Comment Estima annita GFR by RATE (test code = using Yue fied MDRD GFR) formula.Chronic kidney disease is defined as eith er kidney damageor GFR <60 mL/min/1.73 m2 for >3 months. [Automated mess age] The system Need Fixed generated this result transmitted ref erence range: >=60. Th e reference range was not used to int erpret this result as normal/abnormal . CREATININE (test code 0.90 mg/dL 0.7-1.3 N = CREAT) BUN/CREATININE RATIO 11.7 10-20 N (test code = BUN/CREA) CALCIUM (test code = 8.6 mg/dL 8.5-10.1 N CA) CBC W/AUTO [id number] 05:51:00 Test Item Value Reference Range Interpretation Comments WHITE BLOOD CELL (test 10.5 K/mm3 4.5-12.5 N code = WBC) RED BLOOD CELL (test code 4.92 mill/mm3 4.0-5.8 N = RBC) HEMOGLOBIN (test code = 12.7 gram/dL 13.0-17.5 L HGB) HEMATOCRIT (test code = 43.4 % 42.0-52.0 N HCT) MEAN CELL VOLUME (test 88.2 fL 80-98 N code = MCV) MEAN CELL HGB (test code 25.8 picogram 27.0-33.0 L = MCH) MEAN CELL HGB 29.3 gram/dL 33.0-36.0 L CONCETRATION (test code = MCHC) RED CELL DISTRIBUTION 15.6 % 11.6-16.2 N WIDTH (test code = RDW) RED CELL DISTRIBUTION 49.7 fL 37.0-51.0 N WIDTH SD (test code = RDW-SD) PLATELET COUNT (test code 350 K/mm3 150-450 N = PLT) MEAN PLATELET VOLUME 9.3 fL 6.7-11.0 N (test code = MPV) NEUTROPHIL % (test code = 68.6 % 39.0-69.0 N NT%) IMMATURE GRANULOCYTE % 0.5 % 0.0-5.0 N (test code = IG%) LYMPHOCYTE % (test code = 20.2 % 25.0-55.0 L LY%) MONOCYTE % (test code = 7.5 % 0.0-10.0 N MO%) EOSINOPHIL % (test code = 2.3 % 0.0-5.0 N EO%) BASOPHIL % (test code = 0.9 % 0.0-1.0 N BA%) NUCLEATED RBC % (test 0.0 % 0-0 N code = NRBC%) NEUTROPHIL # (test code = 7.21 K/mm3 1.8-7.7 N NT#) IMMATURE GRANULOCYTE # 0.05 x10 3/uL 0-0.03 H (test code = IG#) LYMPHOCYTE # (test code = 2.12 K/mm3 1.0-5.0 N LY#) MONOCYTE # (test code = 0.79 K/mm3 0-0.8 N MO#) EOSINOPHIL # (test code = 0.24 K/mm3 0.0-0.5 N EO#) BASOPHIL # (test code = 0.09 K/mm3 0.0-0.2 N BA#) NUCLEATED RBC # (test 0.00 K/mm3 0.0-0.1 N code = NRBC#) MANUAL DIFF REQUIRED NO, ONLY SCAN NEEDED (test code = MDIFF) DIFFERENTIAL [id number] 05:51:00 Test Item Value Reference Range Interpretation Comments STAIN ACCEPTABILITY (test code = STN ACCEPTABLE) CABOT RINGS (test code = CAB) MORPHOLOGY COMMENT (test code = MOC) PLATELET ESTIMATE (test code = PLTEST) PLATELET MORPHOLOGY (test code = PLTMORPH) CBC W/AUTO [id number] 05:51:00 Test Item Value Reference Range Interpretation Comments WHITE BLOOD CELL (test 10.5 K/mm3 4.5-12.5 N code = WBC) RED BLOOD CELL (test code 4.92 mill/mm3 4.0-5.8 N = RBC) HEMOGLOBIN (test code = 12.7 gram/dL 13.0-17.5 L HGB) HEMATOCRIT (test code = 43.4 % 42.0-52.0 N HCT) MEAN CELL VOLUME (test 88.2 fL 80-98 N code = MCV) MEAN CELL HGB (test code 25.8 picogram 27.0-33.0 L = MCH) MEAN CELL HGB 29.3 gram/dL 33.0-36.0 L CONCETRATION (test code = MCHC) RED CELL DISTRIBUTION 15.6 % 11.6-16.2 N WIDTH (test code = RDW) RED CELL DISTRIBUTION 49.7 fL 37.0-51.0 N WIDTH SD (test code = RDW-SD) PLATELET COUNT (test code 350 K/mm3 150-450 N = PLT) MEAN PLATELET VOLUME 9.3 fL 6.7-11.0 N (test code = MPV) NEUTROPHIL % (test code = 68.6 % 39.0-69.0 N NT%) IMMATURE GRANULOCYTE % 0.5 % 0.0-5.0 N (test code = IG%) LYMPHOCYTE % (test code = 20.2 % 25.0-55.0 L LY%) MONOCYTE % (test code = 7.5 % 0.0-10.0 N MO%) EOSINOPHIL % (test code = 2.3 % 0.0-5.0 N EO%) BASOPHIL % (test code = 0.9 % 0.0-1.0 N BA%) NUCLEATED RBC % (test 0.0 % 0-0 N code = NRBC%) NEUTROPHIL # (test code = 7.21 K/mm3 1.8-7.7 N NT#) IMMATURE GRANULOCYTE # 0.05 x10 3/uL 0-0.03 H (test code = IG#) LYMPHOCYTE # (test code = 2.12 K/mm3 1.0-5.0 N LY#) MONOCYTE # (test code = 0.79 K/mm3 0-0.8 N MO#) EOSINOPHIL # (test code = 0.24 K/mm3 0.0-0.5 N EO#) BASOPHIL # (test code = 0.09 K/mm3 0.0-0.2 N BA#) NUCLEATED RBC # (test 0.00 K/mm3 0.0-0.1 N code = NRBC#) MANUAL DIFF REQUIRED NO, ONLY SCAN NEEDED (test code = MDIFF) DIFFERENTIAL [id number] 05:51:00 Test Item Value Reference Range Interpretation Comments STAIN ACCEPTABILITY (test code = STN ACCEPTABLE) CABOT RINGS (test code = CAB) MORPHOLOGY COMMENT (test code = MOC) PLATELET ESTIMATE (test code = PLTEST) PLATELET MORPHOLOGY (test code = PLTMORPH) CBC W/AUTO [id number] 05:51:00 Test Item Value Reference Range Interpretation Comments WHITE BLOOD CELL (test 10.5 K/mm3 4.5-12.5 N code = WBC) RED BLOOD CELL (test code 4.92 mill/mm3 4.0-5.8 N = RBC) HEMOGLOBIN (test code = 12.7 gram/dL 13.0-17.5 L HGB) HEMATOCRIT (test code = 43.4 % 42.0-52.0 N HCT) MEAN CELL VOLUME (test 88.2 fL 80-98 N code = MCV) MEAN CELL HGB (test code 25.8 picogram 27.0-33.0 L = MCH) MEAN CELL HGB 29.3 gram/dL 33.0-36.0 L CONCETRATION (test code = MCHC) RED CELL DISTRIBUTION 15.6 % 11.6-16.2 N WIDTH (test code = RDW) RED CELL DISTRIBUTION 49.7 fL 37.0-51.0 N WIDTH SD (test code = RDW-SD) PLATELET COUNT (test code 350 K/mm3 150-450 N = PLT) MEAN PLATELET VOLUME 9.3 fL 6.7-11.0 N (test code = MPV) NEUTROPHIL % (test code = 68.6 % 39.0-69.0 N NT%) IMMATURE GRANULOCYTE % 0.5 % 0.0-5.0 N (test code = IG%) LYMPHOCYTE % (test code = 20.2 % 25.0-55.0 L LY%) MONOCYTE % (test code = 7.5 % 0.0-10.0 N MO%) EOSINOPHIL % (test code = 2.3 % 0.0-5.0 N EO%) BASOPHIL % (test code = 0.9 % 0.0-1.0 N BA%) NUCLEATED RBC % (test 0.0 % 0-0 N code = NRBC%) NEUTROPHIL # (test code = 7.21 K/mm3 1.8-7.7 N NT#) IMMATURE GRANULOCYTE # 0.05 x10 3/uL 0-0.03 H (test code = IG#) LYMPHOCYTE # (test code = 2.12 K/mm3 1.0-5.0 N LY#) MONOCYTE # (test code = 0.79 K/mm3 0-0.8 N MO#) EOSINOPHIL # (test code = 0.24 K/mm3 0.0-0.5 N EO#) BASOPHIL # (test code = 0.09 K/mm3 0.0-0.2 N BA#) NUCLEATED RBC # (test 0.00 K/mm3 0.0-0.1 N code = NRBC#) MANUAL DIFF REQUIRED NO, ONLY SCAN NEEDED (test code = MDIFF) DIFFERENTIAL [id number] 05:51:00 Test Item Value Reference Range Interpretation Comments STAIN ACCEPTABILITY (test code = STN ACCEPTABLE) MORPHOLOGY COMMENT (test code = MOC) PLATELET ESTIMATE (test code = PLTEST) PLATELET MORPHOLOGY (test code = PLTMORPH) CBC W/AUTO [id number] 05:51:00 Test Item Value Reference Range Interpretation Comments WHITE BLOOD CELL (test 10.5 K/mm3 4.5-12.5 N code = WBC) RED BLOOD CELL (test code 4.92 mill/mm3 4.0-5.8 N = RBC) HEMOGLOBIN (test code = 12.7 gram/dL 13.0-17.5 L HGB) HEMATOCRIT (test code = 43.4 % 42.0-52.0 N HCT) MEAN CELL VOLUME (test 88.2 fL 80-98 N code = MCV) MEAN CELL HGB (test code 25.8 picogram 27.0-33.0 L = MCH) MEAN CELL HGB 29.3 gram/dL 33.0-36.0 L CONCETRATION (test code = MCHC) RED CELL DISTRIBUTION 15.6 % 11.6-16.2 N WIDTH (test code = RDW) RED CELL DISTRIBUTION 49.7 fL 37.0-51.0 N WIDTH SD (test code = RDW-SD) PLATELET COUNT (test code 350 K/mm3 150-450 N = PLT) MEAN PLATELET VOLUME 9.3 fL 6.7-11.0 N (test code = MPV) NEUTROPHIL % (test code = 68.6 % 39.0-69.0 N NT%) IMMATURE GRANULOCYTE % 0.5 % 0.0-5.0 N (test code = IG%) LYMPHOCYTE % (test code = 20.2 % 25.0-55.0 L LY%) MONOCYTE % (test code = 7.5 % 0.0-10.0 N MO%) EOSINOPHIL % (test code = 2.3 % 0.0-5.0 N EO%) BASOPHIL % (test code = 0.9 % 0.0-1.0 N BA%) NUCLEATED RBC % (test 0.0 % 0-0 N code = NRBC%) NEUTROPHIL # (test code = 7.21 K/mm3 1.8-7.7 N NT#) IMMATURE GRANULOCYTE # 0.05 x10 3/uL 0-0.03 H (test code = IG#) LYMPHOCYTE # (test code = 2.12 K/mm3 1.0-5.0 N LY#) MONOCYTE # (test code = 0.79 K/mm3 0-0.8 N MO#) EOSINOPHIL # (test code = 0.24 K/mm3 0.0-0.5 N EO#) BASOPHIL # (test code = 0.09 K/mm3 0.0-0.2 N BA#) NUCLEATED RBC # (test 0.00 K/mm3 0.0-0.1 N code = NRBC#) MANUAL DIFF REQUIRED NO, ONLY SCAN NEEDED (test code = MDIFF) DIFFERENTIAL [id number] 05:51:00 Test Item Value Reference Range Interpretation Comments STAIN ACCEPTABILITY (test code = STN ACCEPTABLE) CABOT RINGS (test code = CAB) MORPHOLOGY COMMENT (test code = MOC) PLATELET ESTIMATE (test code = PLTEST) PLATELET MORPHOLOGY (test code = PLTMORPH) [id number] 16:50:00 Test Item Value Reference Range Interpretation Comments GLUBED (test code 215 mg/dL 74-106 H Performed by certified = GLUBED) 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 [id number] 12:01:00 Test Item Value Reference Range Interpretation Comments GLUBED (test code 187 mg/dL 74-106 H Performed by certified = GLUBED) 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 [id number] 20:23:00 Test Item Value Reference Range Interpretation Comments GLUBED (test code = 232 mg/dL 74-106 H Performe d by certified GLUBED) 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[facility] [id number] 16:36:00 Test Item Value Reference Range Interpretation Comments GLUBED (test code = 180 mg/dL 74-106 H Performe d by certified GLUBED) 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[facility] [id number] 12:14:00 Test Item Value Reference Range Interpretation Comments GLUBED (test code = 221 mg/dL 74-106 H Performe d by certified GLUBED) 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[facility] [id number] 08:41:00 Test Item Value Reference Range Interpretation Comments GLUBED (test code = 228 mg/dL 74-106 H Performe d by certified GLUBED) 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0-51.0 N WIDTH SD (test code = RDW-SD) PLATELET COUNT (test code 340 K/mm3 150-450 N = PLT) MEAN PLATELET VOLUME 9.1 fL 6.7-11.0 N (test code = MPV) NEUTROPHIL % (test code = 72.1 % 39.0-69.0 H NT%) IMMATURE GRANULOCYTE % 0.8 % 0.0-5.0 N (test code = IG%) LYMPHOCYTE % (test code = 16.8 % 25.0-55.0 L LY%) MONOCYTE % (test code = 7.7 % 0.0-10.0 N MO%) EOSINOPHIL % (test code = 1.9 % 0.0-5.0 N EO%) BASOPHIL % (test code = 0.7 % 0.0-1.0 N BA%) NUCLEATED RBC % (test 0.0 % 0-0 N code = NRBC%) NEUTROPHIL # (test code = 8.65 K/mm3 1.8-7.7 H NT#) IMMATURE GRANULOCYTE # 0.09 x10 3/uL 0-0.03 H (test code = IG#) LYMPHOCYTE # (test code = 2.01 K/mm3 1.0-5.0 N LY#) MONOCYTE # (test code = 0.92 K/mm3 0-0.8 H MO#) EOSINOPHIL # (test code = 0.23 K/mm3 0.0-0.5 N EO#) BASOPHIL # (test code = 0.08 K/mm3 0.0-0.2 N BA#) NUCLEATED RBC # (test 0.00 K/mm3 0.0-0.1 N code = NRBC#) MANUAL DIFF REQUIRED NO, ONLY SCAN NEEDED (test code = MDIFF) DIFFERENTIAL [id number] 06:22:00 Test Item Value Reference Range Interpretation Comments STAIN ACCEPTABILITY (test STAIN ACCEPTABLE code = STN ACCEPTABLE) POLYCHROMASIA (test code = 1+ POLC) PLATELET ESTIMATE (test code ADEQUATE = PLTEST) PLATELET MORPHOLOGY (test NORMAL code = PLTMORPH) BASIC METABOLIC [id number] 05:57:00 Test Item Value Reference Range Interpretation Comments SODIUM (test code = 131 mmol/L 136-145 L NA) POTASSIUM (test code 4.4 mmol/L 3.5-5.1 N = K) CHLORIDE (test code = 95.0 mmol/L 98-107 L CL) CARBON DIOXIDE (test 34.0 mmol/L 21-32 H code = CO2) ANION GAP (test code 6.4 10-20 L = GAP) GLUCOSE (test code = 240 mg/dL 74-106 H GLU) BLOOD UREA NITROGEN 10 mg/dL 7-18 N (test code = BUN) GLOMERULAR FILTRATION > 60 mL/min See_Comment Estima annita GFR by RATE (test code = using Yue fied MDRD GFR) formula.Chronic kidney disease is defined as eith er kidney damageor GFR <60 mL/min/1.73 m2 for >3 months. [Automated mess age] The system Need Fixed generated this result transmitted ref erence range: >=60. Th e reference range was not used to int erpret this result as normal/abnormal . CREATININE (test code 0.80 mg/dL 0.7-1.3 N = CREAT) BUN/CREATININE RATIO 11.9 10-20 N (test code = BUN/CREA) CALCIUM (test code = 8.3 mg/dL 8.5-10.1 L CA) CBC W/AUTO [id number] 05:37:00 Test Item Value Reference Range Interpretation Comments WHITE BLOOD CELL (test 12.0 K/mm3 4.5-12.5 N code = WBC) RED BLOOD CELL (test code 4.87 mill/mm3 4.0-5.8 N = RBC) HEMOGLOBIN (test code = 12.7 gram/dL 13.0-17.5 L HGB) HEMATOCRIT (test code = 43.4 % 42.0-52.0 N HCT) MEAN CELL VOLUME (test 89.1 fL 80-98 N code = MCV) MEAN CELL HGB (test code 26.1 picogram 27.0-33.0 L = MCH) MEAN CELL HGB 29.3 gram/dL 33.0-36.0 L CONCETRATION (test code = MCHC) RED CELL DISTRIBUTION 15.5 % 11.6-16.2 N WIDTH (test code = RDW) RED CELL DISTRIBUTION 50.4 fL 37.0-51.0 N WIDTH SD (test code = RDW-SD) PLATELET COUNT (test code 340 K/mm3 150-450 N = PLT) MEAN PLATELET VOLUME 9.1 fL 6.7-11.0 N (test code = MPV) NEUTROPHIL % (test code = 72.1 % 39.0-69.0 H NT%) IMMATURE GRANULOCYTE % 0.8 % 0.0-5.0 N (test code = IG%) LYMPHOCYTE % (test code = 16.8 % 25.0-55.0 L LY%) MONOCYTE % (test code = 7.7 % 0.0-10.0 N MO%) EOSINOPHIL % (test code = 1.9 % 0.0-5.0 N EO%) BASOPHIL % (test code = 0.7 % 0.0-1.0 N BA%) NUCLEATED RBC % (test 0.0 % 0-0 N code = NRBC%) NEUTROPHIL # (test code = 8.65 K/mm3 1.8-7.7 H NT#) IMMATURE GRANULOCYTE # 0.09 x10 3/uL 0-0.03 H (test code = IG#) LYMPHOCYTE # (test code = 2.01 K/mm3 1.0-5.0 N LY#) MONOCYTE # (test code = 0.92 K/mm3 0-0.8 H MO#) EOSINOPHIL # (test code = 0.23 K/mm3 0.0-0.5 N EO#) BASOPHIL # (test code = 0.08 K/mm3 0.0-0.2 N BA#) NUCLEATED RBC # (test 0.00 K/mm3 0.0-0.1 N code = NRBC#) MANUAL DIFF REQUIRED NO, ONLY SCAN NEEDED (test code = MDIFF) DIFFERENTIAL [id number] 05:37:00 Test Item Value Reference Range Interpretation Comments STAIN ACCEPTABILITY (test code = STN ACCEPTABLE) CABOT RINGS (test code = CAB) MORPHOLOGY COMMENT (test code = MOC) PLATELET ESTIMATE (test code = PLTEST) PLATELET MORPHOLOGY (test code = PLTMORPH) CBC W/AUTO [id number] 05:37:00 Test Item Value Reference Range Interpretation Comments WHITE BLOOD CELL (test 12.0 K/mm3 4.5-12.5 N code = WBC) RED BLOOD CELL (test code 4.87 mill/mm3 4.0-5.8 N = RBC) HEMOGLOBIN (test code = 12.7 gram/dL 13.0-17.5 L HGB) HEMATOCRIT (test code = 43.4 % 42.0-52.0 N HCT) MEAN CELL VOLUME (test 89.1 fL 80-98 N code = MCV) MEAN CELL HGB (test code 26.1 picogram 27.0-33.0 L = MCH) MEAN CELL HGB 29.3 gram/dL 33.0-36.0 L CONCETRATION (test code = MCHC) RED CELL DISTRIBUTION 15.5 % 11.6-16.2 N WIDTH (test code = RDW) RED CELL DISTRIBUTION 50.4 fL 37.0-51.0 N WIDTH SD (test code = RDW-SD) PLATELET COUNT (test code 340 K/mm3 150-450 N = PLT) MEAN PLATELET VOLUME 9.1 fL 6.7-11.0 N (test code = MPV) NEUTROPHIL % (test code = 72.1 % 39.0-69.0 H NT%) IMMATURE GRANULOCYTE % 0.8 % 0.0-5.0 N (test code = IG%) LYMPHOCYTE % (test code = 16.8 % 25.0-55.0 L LY%) MONOCYTE % (test code = 7.7 % 0.0-10.0 N MO%) EOSINOPHIL % (test code = 1.9 % 0.0-5.0 N EO%) BASOPHIL % (test code = 0.7 % 0.0-1.0 N BA%) NUCLEATED RBC % (test 0.0 % 0-0 N code = NRBC%) NEUTROPHIL # (test code = 8.65 K/mm3 1.8-7.7 H NT#) IMMATURE GRANULOCYTE # 0.09 x10 3/uL 0-0.03 H (test code = IG#) LYMPHOCYTE # (test code = 2.01 K/mm3 1.0-5.0 N LY#) MONOCYTE # (test code = 0.92 K/mm3 0-0.8 H MO#) EOSINOPHIL # (test code = 0.23 K/mm3 0.0-0.5 N EO#) BASOPHIL # (test code = 0.08 K/mm3 0.0-0.2 N BA#) NUCLEATED RBC # (test 0.00 K/mm3 0.0-0.1 N code = NRBC#) MANUAL DIFF REQUIRED NO, ONLY SCAN NEEDED (test code = MDIFF) DIFFERENTIAL [id number] 05:37:00 Test Item Value Reference Range Interpretation Comments STAIN ACCEPTABILITY (test code = STN ACCEPTABLE) CABOT RINGS (test code = CAB) MORPHOLOGY COMMENT (test code = MOC) PLATELET ESTIMATE (test code = PLTEST) PLATELET MORPHOLOGY (test code = PLTMORPH) CBC W/AUTO [id number] 05:37:00 Test Item Value Reference Range Interpretation Comments WHITE BLOOD CELL (test 12.0 K/mm3 4.5-12.5 N code = WBC) RED BLOOD CELL (test code 4.87 mill/mm3 4.0-5.8 N = RBC) HEMOGLOBIN (test code = 12.7 gram/dL 13.0-17.5 L HGB) HEMATOCRIT (test code = 43.4 % 42.0-52.0 N HCT) MEAN CELL VOLUME (test 89.1 fL 80-98 N code = MCV) MEAN CELL HGB (test code 26.1 picogram 27.0-33.0 L = MCH) MEAN CELL HGB 29.3 gram/dL 33.0-36.0 L CONCETRATION (test code = MCHC) RED CELL DISTRIBUTION 15.5 % 11.6-16.2 N WIDTH (test code = RDW) RED CELL DISTRIBUTION 50.4 fL 37.0-51.0 N WIDTH SD (test code = RDW-SD) PLATELET COUNT (test code 340 K/mm3 150-450 N = PLT) MEAN PLATELET VOLUME 9.1 fL 6.7-11.0 N (test code = MPV) NEUTROPHIL % (test code = 72.1 % 39.0-69.0 H NT%) IMMATURE GRANULOCYTE % 0.8 % 0.0-5.0 N (test code = IG%) LYMPHOCYTE % (test code = 16.8 % 25.0-55.0 L LY%) MONOCYTE % (test code = 7.7 % 0.0-10.0 N MO%) EOSINOPHIL % (test code = 1.9 % 0.0-5.0 N EO%) BASOPHIL % (test code = 0.7 % 0.0-1.0 N BA%) NUCLEATED RBC % (test 0.0 % 0-0 N code = NRBC%) NEUTROPHIL # (test code = 8.65 K/mm3 1.8-7.7 H NT#) IMMATURE GRANULOCYTE # 0.09 x10 3/uL 0-0.03 H (test code = IG#) LYMPHOCYTE # (test code = 2.01 K/mm3 1.0-5.0 N LY#) MONOCYTE # (test code = 0.92 K/mm3 0-0.8 H MO#) EOSINOPHIL # (test code = 0.23 K/mm3 0.0-0.5 N EO#) BASOPHIL # (test code = 0.08 K/mm3 0.0-0.2 N BA#) NUCLEATED RBC # (test 0.00 K/mm3 0.0-0.1 N code = NRBC#) MANUAL DIFF REQUIRED NO, ONLY SCAN NEEDED (test code = MDIFF) DIFFERENTIAL [id number] 05:37:00 Test Item Value Reference Range Interpretation Comments STAIN ACCEPTABILITY (test code = STN ACCEPTABLE) MORPHOLOGY COMMENT (test code = MOC) PLATELET ESTIMATE (test code = PLTEST) PLATELET MORPHOLOGY (test code = PLTMORPH) CBC W/AUTO [id number] 05:37:00 Test Item Value Reference Range Interpretation Comments WHITE BLOOD CELL (test 12.0 K/mm3 4.5-12.5 N code = WBC) RED BLOOD CELL (test code 4.87 mill/mm3 4.0-5.8 N = RBC) HEMOGLOBIN (test code = 12.7 gram/dL 13.0-17.5 L HGB) HEMATOCRIT (test code = 43.4 % 42.0-52.0 N HCT) MEAN CELL VOLUME (test 89.1 fL 80-98 N code = MCV) MEAN CELL HGB (test code 26.1 picogram 27.0-33.0 L = MCH) MEAN CELL HGB 29.3 gram/dL 33.0-36.0 L CONCETRATION (test code = MCHC) RED CELL DISTRIBUTION 15.5 % 11.6-16.2 N WIDTH (test code = RDW) RED CELL DISTRIBUTION 50.4 fL 37.0-51.0 N WIDTH SD (test code = RDW-SD) PLATELET COUNT (test code 340 K/mm3 150-450 N = PLT) MEAN PLATELET VOLUME 9.1 fL 6.7-11.0 N (test code = MPV) NEUTROPHIL % (test code = 72.1 % 39.0-69.0 H NT%) IMMATURE GRANULOCYTE % 0.8 % 0.0-5.0 N (test code = IG%) LYMPHOCYTE % (test code = 16.8 % 25.0-55.0 L LY%) MONOCYTE % (test code = 7.7 % 0.0-10.0 N MO%) EOSINOPHIL % (test code = 1.9 % 0.0-5.0 N EO%) BASOPHIL % (test code = 0.7 % 0.0-1.0 N BA%) NUCLEATED RBC % (test 0.0 % 0-0 N code = NRBC%) NEUTROPHIL # (test code = 8.65 K/mm3 1.8-7.7 H NT#) IMMATURE GRANULOCYTE # 0.09 x10 3/uL 0-0.03 H (test code = IG#) LYMPHOCYTE # (test code = 2.01 K/mm3 1.0-5.0 N LY#) MONOCYTE # (test code = 0.92 K/mm3 0-0.8 H MO#) EOSINOPHIL # (test code = 0.23 K/mm3 0.0-0.5 N EO#) BASOPHIL # (test code = 0.08 K/mm3 0.0-0.2 N BA#) NUCLEATED RBC # (test 0.00 K/mm3 0.0-0.1 N code = NRBC#) MANUAL DIFF REQUIRED NO, ONLY SCAN NEEDED (test code = MDIFF) DIFFERENTIAL [id number] 05:37:00 Test Item Value Reference Range Interpretation Comments STAIN ACCEPTABILITY (test code = STN ACCEPTABLE) CABOT RINGS (test code = CAB) MORPHOLOGY COMMENT (test code = MOC) PLATELET ESTIMATE (test code = PLTEST) PLATELET MORPHOLOGY (test code = PLTMORPH) [id number] 16:06:00 Test Item Value Reference Range Interpretation Comments GLUBED (test code 237 mg/dL 74-106 H Performed by certified = GLUBED) 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 [id number] 12:35:00 Test Item Value Reference Range Interpretation Comments GLUBED (test code 271 mg/dL 74-106 H Performed by certified = GLUBED) 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 [id number] 08:08:00 Test Item Value Reference Range Interpretation Comments GLUBED (test code 233 mg/dL 74-106 H Performed by certified = GLUBED) 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 CBC W/AUTO [id number] 07:56:00 Test Item Value Reference Range Interpretation Comments WHITE BLOOD CELL (test 12.8 K/mm3 4.5-12.5 H code = WBC) RED BLOOD CELL (test code 4.97 mill/mm3 4.0-5.8 N = RBC) HEMOGLOBIN (test code = 12.6 gram/dL 13.0-17.5 L HGB) HEMATOCRIT (test code = 43.2 % 42.0-52.0 N HCT) MEAN CELL VOLUME (test 86.9 fL 80-98 N code = MCV) MEAN CELL HGB (test code 25.4 picogram 27.0-33.0 L = MCH) MEAN CELL HGB 29.2 gram/dL 33.0-36.0 L CONCETRATION (test code = MCHC) RED CELL DISTRIBUTION 15.7 % 11.6-16.2 N WIDTH (test code = RDW) RED CELL DISTRIBUTION 49.6 fL 37.0-51.0 N WIDTH SD (test code = RDW-SD) PLATELET COUNT (test code 365 K/mm3 150-450 N = PLT) MEAN PLATELET VOLUME 9.1 fL 6.7-11.0 N (test code = MPV) NEUTROPHIL % (test code = 66.4 % 39.0-69.0 N NT%) IMMATURE GRANULOCYTE % 0.9 % 0.0-5.0 N (test code = IG%) LYMPHOCYTE % (test code = 20.9 % 25.0-55.0 L LY%) MONOCYTE % (test code = 9.0 % 0.0-10.0 N MO%) EOSINOPHIL % (test code = 2.3 % 0.0-5.0 N EO%) BASOPHIL % (test code = 0.5 % 0.0-1.0 N BA%) NUCLEATED RBC % (test 0.0 % 0-0 N code = NRBC%) NEUTROPHIL # (test code = 8.52 K/mm3 1.8-7.7 H NT#) IMMATURE GRANULOCYTE # 0.11 x10 3/uL 0-0.03 H (test code = IG#) LYMPHOCYTE # (test code = 2.68 K/mm3 1.0-5.0 N LY#) MONOCYTE # (test code = 1.16 K/mm3 0-0.8 H MO#) EOSINOPHIL # (test code = 0.29 K/mm3 0.0-0.5 N EO#) BASOPHIL # (test code = 0.07 K/mm3 0.0-0.2 N BA#) NUCLEATED RBC # (test 0.00 K/mm3 0.0-0.1 N code = NRBC#) MANUAL DIFF REQUIRED NO, ONLY SCAN NEEDED (test code = MDIFF) DIFFERENTIAL [id number] 07:56:00 Test Item Value Reference Range Interpretation Comments STAIN ACCEPTABILITY (test STAIN ACCEPTABLE code = STN ACCEPTABLE) MORPHOLOGY COMMENT (test NORMAL code = MOC) PLATELET ESTIMATE (test code ADEQUATE = PLTEST) PLATELET MORPHOLOGY (test NORMAL code = PLTMORPH) COMPREHENSIVE METABOLIC [id number] 05:54:00 Test Item Value Reference Range Interpretation Comments SODIUM (test code = 132 mmol/L 136-145 L NA) POTASSIUM (test code 4.3 mmol/L 3.5-5.1 N = K) CHLORIDE (test code = 98.0 mmol/L 98-107 N CL) CARBON DIOXIDE (test 31.0 mmol/L 21-32 N code = CO2) ANION GAP (test code 7.3 10-20 L = GAP) GLUCOSE (test code = 311 mg/dL 74-106 H GLU) BLOOD UREA NITROGEN 13 mg/dL 7-18 N (test code = BUN) GLOMERULAR FILTRATION > 60 mL/min See_Comment Estima annita GFR by RATE (test code = using Yue fied MDRD GFR) formula.Chronic kidney disease is defined as eith er kidney damageor GFR <60 mL/min/1.73 m2 for >3 months. [Automated mess age] The system Need Fixed generated this result transmitted ref erence range: >=60. Th e reference range was not used to int erpret this result as normal/abnormal . CREATININE (test code 1.00 mg/dL 0.7-1.3 N = CREAT) BUN/CREATININE RATIO 12.6 10-20 N (test code = BUN/CREA) TOTAL PROTEIN (test 7.5 gram/dL 6.4-8.2 N code = PROT) ALBUMIN (test code = 2.7 g/dL 3.4-5.0 L ALB) GLOBULIN (test code = 4.8 gram/dL 2.7-4.2 H GLOB) ALBUMIN/GLOBULIN 0.6 0.75-1.50 L RATIO (test code = A/G) CALCIUM (test code = 8.9 mg/dL 8.5-10.1 N CA) BILIRUBIN TOTAL (test 0.30 mg/dL 0.0-1.0 N code = BILT) SGOT/AST (test code = 15 IUnit/L 15-37 N AST) SGPT/ALT (test code = 17 IUnit/L 12-78 N ALT) ALKALINE PHOSPHATASE 109 IUnit/L 45-117 N Note change in TOTAL (test code = reference range due ALKP) to change in reagent. CBC W/AUTO [id number] 05:12:00 Test Item Value Reference Range Interpretation Comments WHITE BLOOD CELL (test 12.8 K/mm3 4.5-12.5 H code = WBC) RED BLOOD CELL (test code 4.97 mill/mm3 4.0-5.8 N = RBC) HEMOGLOBIN (test code = 12.6 gram/dL 13.0-17.5 L HGB) HEMATOCRIT (test code = 43.2 % 42.0-52.0 N HCT) MEAN CELL VOLUME (test 86.9 fL 80-98 N code = MCV) MEAN CELL HGB (test code 25.4 picogram 27.0-33.0 L = MCH) MEAN CELL HGB 29.2 gram/dL 33.0-36.0 L CONCETRATION (test code = MCHC) RED CELL DISTRIBUTION 15.7 % 11.6-16.2 N WIDTH (test code = RDW) RED CELL DISTRIBUTION 49.6 fL 37.0-51.0 N WIDTH SD (test code = RDW-SD) PLATELET COUNT (test code 365 K/mm3 150-450 N = PLT) MEAN PLATELET VOLUME 9.1 fL 6.7-11.0 N (test code = MPV) NEUTROPHIL % (test code = 66.4 % 39.0-69.0 N NT%) IMMATURE GRANULOCYTE % 0.9 % 0.0-5.0 N (test code = IG%) LYMPHOCYTE % (test code = 20.9 % 25.0-55.0 L LY%) MONOCYTE % (test code = 9.0 % 0.0-10.0 N MO%) EOSINOPHIL % (test code = 2.3 % 0.0-5.0 N EO%) BASOPHIL % (test code = 0.5 % 0.0-1.0 N BA%) NUCLEATED RBC % (test 0.0 % 0-0 N code = NRBC%) NEUTROPHIL # (test code = 8.52 K/mm3 1.8-7.7 H NT#) IMMATURE GRANULOCYTE # 0.11 x10 3/uL 0-0.03 H (test code = IG#) LYMPHOCYTE # (test code = 2.68 K/mm3 1.0-5.0 N LY#) MONOCYTE # (test code = 1.16 K/mm3 0-0.8 H MO#) EOSINOPHIL # (test code = 0.29 K/mm3 0.0-0.5 N EO#) BASOPHIL # (test code = 0.07 K/mm3 0.0-0.2 N BA#) NUCLEATED RBC # (test 0.00 K/mm3 0.0-0.1 N code = NRBC#) MANUAL DIFF REQUIRED NO, ONLY SCAN NEEDED (test code = MDIFF) DIFFERENTIAL [id number] 05:12:00 Test Item Value Reference Range Interpretation Comments STAIN ACCEPTABILITY (test code = STN ACCEPTABLE) MORPHOLOGY COMMENT (test code = MOC) PLATELET ESTIMATE (test code = PLTEST) PLATELET MORPHOLOGY (test code = PLTMORPH) CBC W/AUTO [id number] 05:12:00 Test Item Value Reference Range Interpretation Comments WHITE BLOOD CELL (test 12.8 K/mm3 4.5-12.5 H code = WBC) RED BLOOD CELL (test code 4.97 mill/mm3 4.0-5.8 N = RBC) HEMOGLOBIN (test code = 12.6 gram/dL 13.0-17.5 L HGB) HEMATOCRIT (test code = 43.2 % 42.0-52.0 N HCT) MEAN CELL VOLUME (test 86.9 fL 80-98 N code = MCV) MEAN CELL HGB (test code 25.4 picogram 27.0-33.0 L = MCH) MEAN CELL HGB 29.2 gram/dL 33.0-36.0 L CONCETRATION (test code = MCHC) RED CELL DISTRIBUTION 15.7 % 11.6-16.2 N WIDTH (test code = RDW) RED CELL DISTRIBUTION 49.6 fL 37.0-51.0 N WIDTH SD (test code = RDW-SD) PLATELET COUNT (test code 365 K/mm3 150-450 N = PLT) MEAN PLATELET VOLUME 9.1 fL 6.7-11.0 N (test code = MPV) NEUTROPHIL % (test code = 66.4 % 39.0-69.0 N NT%) IMMATURE GRANULOCYTE % 0.9 % 0.0-5.0 N (test code = IG%) LYMPHOCYTE % (test code = 20.9 % 25.0-55.0 L LY%) MONOCYTE % (test code = 9.0 % 0.0-10.0 N MO%) EOSINOPHIL % (test code = 2.3 % 0.0-5.0 N EO%) BASOPHIL % (test code = 0.5 % 0.0-1.0 N BA%) NUCLEATED RBC % (test 0.0 % 0-0 N code = NRBC%) NEUTROPHIL # (test code = 8.52 K/mm3 1.8-7.7 H NT#) IMMATURE GRANULOCYTE # 0.11 x10 3/uL 0-0.03 H (test code = IG#) LYMPHOCYTE # (test code = 2.68 K/mm3 1.0-5.0 N LY#) MONOCYTE # (test code = 1.16 K/mm3 0-0.8 H MO#) EOSINOPHIL # (test code = 0.29 K/mm3 0.0-0.5 N EO#) BASOPHIL # (test code = 0.07 K/mm3 0.0-0.2 N BA#) NUCLEATED RBC # (test 0.00 K/mm3 0.0-0.1 N code = NRBC#) MANUAL DIFF REQUIRED NO, ONLY SCAN NEEDED (test code = MDIFF) DIFFERENTIAL [id number] 05:12:00 Test Item Value Reference Range Interpretation Comments STAIN ACCEPTABILITY (test code = STN ACCEPTABLE) CABOT RINGS (test code = CAB) MORPHOLOGY COMMENT (test code = MOC) PLATELET ESTIMATE (test code = PLTEST) PLATELET MORPHOLOGY (test code = PLTMORPH) CBC W/AUTO [id number] 05:11:00 Test Item Value Reference Range Interpretation Comments WHITE BLOOD CELL (test 12.8 K/mm3 4.5-12.5 H code = WBC) RED BLOOD CELL (test code 4.97 mill/mm3 4.0-5.8 N = RBC) HEMOGLOBIN (test code = 12.6 gram/dL 13.0-17.5 L HGB) HEMATOCRIT (test code = 43.2 % 42.0-52.0 N HCT) MEAN CELL VOLUME (test 86.9 fL 80-98 N code = MCV) MEAN CELL HGB (test code 25.4 picogram 27.0-33.0 L = MCH) MEAN CELL HGB 29.2 gram/dL 33.0-36.0 L CONCETRATION (test code = MCHC) RED CELL DISTRIBUTION 15.7 % 11.6-16.2 N WIDTH (test code = RDW) RED CELL DISTRIBUTION 49.6 fL 37.0-51.0 N WIDTH SD (test code = RDW-SD) PLATELET COUNT (test code 365 K/mm3 150-450 N = PLT) MEAN PLATELET VOLUME 9.1 fL 6.7-11.0 N (test code = MPV) NEUTROPHIL % (test code = 66.4 % 39.0-69.0 N NT%) IMMATURE GRANULOCYTE % 0.9 % 0.0-5.0 N (test code = IG%) LYMPHOCYTE % (test code = 20.9 % 25.0-55.0 L LY%) MONOCYTE % (test code = 9.0 % 0.0-10.0 N MO%) EOSINOPHIL % (test code = 2.3 % 0.0-5.0 N EO%) BASOPHIL % (test code = 0.5 % 0.0-1.0 N BA%) NUCLEATED RBC % (test 0.0 % 0-0 N code = NRBC%) NEUTROPHIL # (test code = 8.52 K/mm3 1.8-7.7 H NT#) IMMATURE GRANULOCYTE # 0.11 x10 3/uL 0-0.03 H (test code = IG#) LYMPHOCYTE # (test code = 2.68 K/mm3 1.0-5.0 N LY#) MONOCYTE # (test code = 1.16 K/mm3 0-0.8 H MO#) EOSINOPHIL # (test code = 0.29 K/mm3 0.0-0.5 N EO#) BASOPHIL # (test code = 0.07 K/mm3 0.0-0.2 N BA#) NUCLEATED RBC # (test 0.00 K/mm3 0.0-0.1 N code = NRBC#) MANUAL DIFF REQUIRED NO, ONLY SCAN NEEDED (test code = MDIFF) DIFFERENTIAL [id number] 05:11:00 Test Item Value Reference Range Interpretation Comments STAIN ACCEPTABILITY (test code = STN ACCEPTABLE) CABOT RINGS (test code = CAB) MORPHOLOGY COMMENT (test code = MOC) PLATELET ESTIMATE (test code = PLTEST) PLATELET MORPHOLOGY (test code = PLTMORPH) CBC W/AUTO [id number] 05:11:00 Test Item Value Reference Range Interpretation Comments WHITE BLOOD CELL (test 12.8 K/mm3 4.5-12.5 H code = WBC) RED BLOOD CELL (test code 4.97 mill/mm3 4.0-5.8 N = RBC) HEMOGLOBIN (test code = 12.6 gram/dL 13.0-17.5 L HGB) HEMATOCRIT (test code = 43.2 % 42.0-52.0 N HCT) MEAN CELL VOLUME (test 86.9 fL 80-98 N code = MCV) MEAN CELL HGB (test code 25.4 picogram 27.0-33.0 L = MCH) MEAN CELL HGB 29.2 gram/dL 33.0-36.0 L CONCETRATION (test code = MCHC) RED CELL DISTRIBUTION 15.7 % 11.6-16.2 N WIDTH (test code = RDW) RED CELL DISTRIBUTION 49.6 fL 37.0-51.0 N WIDTH SD (test code = RDW-SD) PLATELET COUNT (test code 365 K/mm3 150-450 N = PLT) MEAN PLATELET VOLUME 9.1 fL 6.7-11.0 N (test code = MPV) NEUTROPHIL % (test code = 66.4 % 39.0-69.0 N NT%) IMMATURE GRANULOCYTE % 0.9 % 0.0-5.0 N (test code = IG%) LYMPHOCYTE % (test code = 20.9 % 25.0-55.0 L LY%) MONOCYTE % (test code = 9.0 % 0.0-10.0 N MO%) EOSINOPHIL % (test code = 2.3 % 0.0-5.0 N EO%) BASOPHIL % (test code = 0.5 % 0.0-1.0 N BA%) NUCLEATED RBC % (test 0.0 % 0-0 N code = NRBC%) NEUTROPHIL # (test code = 8.52 K/mm3 1.8-7.7 H NT#) IMMATURE GRANULOCYTE # 0.11 x10 3/uL 0-0.03 H (test code = IG#) LYMPHOCYTE # (test code = 2.68 K/mm3 1.0-5.0 N LY#) MONOCYTE # (test code = 1.16 K/mm3 0-0.8 H MO#) EOSINOPHIL # (test code = 0.29 K/mm3 0.0-0.5 N EO#) BASOPHIL # (test code = 0.07 K/mm3 0.0-0.2 N BA#) NUCLEATED RBC # (test 0.00 K/mm3 0.0-0.1 N code = NRBC#) MANUAL DIFF REQUIRED NO, ONLY SCAN NEEDED (test code = MDIFF) DIFFERENTIAL [id number] 05:11:00 Test Item Value Reference Range Interpretation Comments STAIN ACCEPTABILITY (test code = STN ACCEPTABLE) CABOT RINGS (test code = CAB) MORPHOLOGY COMMENT (test code = MOC) PLATELET ESTIMATE (test code = PLTEST) PLATELET MORPHOLOGY (test code = PLTMORPH) [id number] 20:37:00 Test Item Value Reference Range Interpretation Comments GLUBED (test code = 297 mg/dL 74-106 H Performe d by certified GLUBED) 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[facility] URINALYSIS [id number] 17:21:00 Test Item Value Reference Range Interpretation Comments UA COLOR (test code = YELLOW YELLOW COLU) UA APPEARANCE (test code TURBID CLEAR A = APPU) UA GLUCOSE DIPSTICK (test 500 (3+) mg/dL NEGATIVE A code = DGLUU) UA BILIRUBIN DIPSTICK NEGATIVE mg/dL NEGATIVE (test code = BILU) UA KETONE DIPSTICK (test NEGATIVE mg/dL NEGATIVE code = KETU) UA SPECIFIC GRAVITY (test 1.032 1.001-1.035 code = SGU) UA BLOOD DIPSTICK (test 0.03 mg/dL (Trace) NEGATIVE A code = ROSALIA) mg/dL UA PH DIPSTICK (test code 5.0 5.0-8.0 = CHER) UA PROTEIN DIPSTICK (test 30 (1+) mg/dL NEGATIVE A code = PROU) UA UROBILINIOGEN DIPSTICK Normal mg/dL NEGATIVE (test code = URO) UA NITRITE DIPSTICK (test NEGATIVE NEGATIVE code = TOM) UA LEUKOCYTE ESTERASE W NEGATIVE Woody/uL NEGATIVE REFLEX (test code = LEUUR) UA WBC (test code = WBCU) 0-5 per HPF 0-5 UA RBC (test code = RBCU) 0-2 #/HPF 0-5 UA EPITHELIAL CELLS (test FEW per HPF FEW code = EPIU) UA BACTERIA (test code = NONE SEEN #/HPF NONE BACU) UA MUCUS (test code = FEW #/LPF FEW MUCU) UA AMORPHOUS SEDIMENT FEW #/LPF (test code = AMORU) Urine Source? 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[facility] COMPREHENSIVE METABOLIC [id number] 12:38:00 Test Item Value Reference Range Interpretation Comments SODIUM (test code = 134 mmol/L 136-145 L NA) POTASSIUM (test code 4.4 mmol/L 3.5-5.1 N = K) CHLORIDE (test code = 99.0 mmol/L 98-107 N CL) CARBON DIOXIDE (test 27.0 mmol/L 21-32 N code = CO2) ANION GAP (test code 12.4 10-20 N = GAP) GLUCOSE (test code = 227 mg/dL 74-106 H GLU) BLOOD UREA NITROGEN 11 mg/dL 7-18 N (test code = BUN) GLOMERULAR FILTRATION > 60 mL/min See_Comment Estima annita GFR by RATE (test code = using Yue fied MDRD GFR) formula.Chronic kidney disease is defined as eith er kidney damageor GFR <60 mL/min/1.73 m2 for >3 months. [Automated mess age] The system Need Fixed generated this result transmitted ref erence range: >=60. Th e reference range was not used to int erpret this result as normal/abnormal . CREATININE (test code 0.90 mg/dL 0.7-1.3 N = CREAT) BUN/CREATININE RATIO 12.8 10-20 N (test code = BUN/CREA) TOTAL PROTEIN (test 8.2 gram/dL 6.4-8.2 N code = PROT) ALBUMIN (test code = 3.1 g/dL 3.4-5.0 L ALB) GLOBULIN (test code = 5.1 gram/dL 2.7-4.2 H GLOB) ALBUMIN/GLOBULIN 0.6 0.75-1.50 L RATIO (test code = A/G) CALCIUM (test code = 8.6 mg/dL 8.5-10.1 N CA) BILIRUBIN TOTAL (test 0.40 mg/dL 0.0-1.0 N code = BILT) SGOT/AST (test code = 13 IUnit/L 15-37 L AST) SGPT/ALT (test code = 21 IUnit/L 12-78 N ALT) ALKALINE PHOSPHATASE 121 IUnit/L 45-117 H Note change in TOTAL (test code = reference range due ALKP) to change in reagent. 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 HEART, CRISTY G, AND BLOOD INST. HDL CHOLESTEROL (test 30 mg/dL 40-60 L code = HDL) LIPOPROTEIN LDL (test 115 mg/dL 100-129 N RN PER [place], CONTACT code = LDL) PHYSICIAN IMMED IATELY IF THIS IS A ST [place], AMI OR CAROTID STENOSIS PATIEN T WHEN THE LDL >100 ([address] OCCURENCE, THIS ADMISSION)===== ======= ======= ======= ===Reference In terval: mg/dL mmol/L-------- ------- ------- ------- Optimal <100 <2.6Near/above optimal 100-12 9 2.6-3.3Borderl ine High 130-159 3.4-4.1High 160 -189 4.1-4.9Very High >=190 >=4.9========= This LDL result is a direct measurement.=== ====== THYROID STIMULATING [id number] 09:41:00 Test Item Value Reference Range Interpretation Comments THYROID STIMULATING 2.255 uIU/mL 0.36-3.74 N TSH REFE RENCE HORMONE (test code = RANGES: EUTHYROID: TSH) 0.35 - 4.3 mIU/mL HYPO : > 5.5 mIU/mL HYPER : < 0.35 mIU/mL CBC W/AUTO [id number] 09:11:00 Test Item Value Reference Range Interpretation Comments WHITE BLOOD CELL (test 16.7 K/mm3 4.5-12.5 H code = WBC) RED BLOOD CELL (test code 5.39 mill/mm3 4.0-5.8 N = RBC) HEMOGLOBIN (test code = 14.0 gram/dL 13.0-17.5 N HGB) HEMATOCRIT (test code = 46.9 % 42.0-52.0 N HCT) MEAN CELL VOLUME (test 87.0 fL 80-98 N code = MCV) MEAN CELL HGB (test code 26.0 picogram 27.0-33.0 L = MCH) MEAN CELL HGB 29.9 gram/dL 33.0-36.0 L CONCETRATION (test code = MCHC) RED CELL DISTRIBUTION 15.8 % 11.6-16.2 N WIDTH (test code = RDW) RED CELL DISTRIBUTION 49.3 fL 37.0-51.0 N WIDTH SD (test code = RDW-SD) PLATELET COUNT (test code 378 K/mm3 150-450 N = PLT) MEAN PLATELET VOLUME 9.1 fL 6.7-11.0 N (test code = MPV) NEUTROPHIL % (test code = 76.7 % 39.0-69.0 H NT%) IMMATURE GRANULOCYTE % 0.7 % 0.0-5.0 N (test code = IG%) LYMPHOCYTE % (test code = 14.0 % 25.0-55.0 L LY%) MONOCYTE % (test code = 6.6 % 0.0-10.0 N MO%) EOSINOPHIL % (test code = 1.3 % 0.0-5.0 N EO%) BASOPHIL % (test code = 0.7 % 0.0-1.0 N BA%) NUCLEATED RBC % (test 0.0 % 0-0 N code = NRBC%) NEUTROPHIL # (test code = 12.79 K/mm3 1.8-7.7 H NT#) IMMATURE GRANULOCYTE # 0.11 x10 3/uL 0-0.03 H (test code = IG#) LYMPHOCYTE # (test code = 2.33 K/mm3 1.0-5.0 N LY#) MONOCYTE # (test code = 1.10 K/mm3 0-0.8 H MO#) EOSINOPHIL # (test code = 0.22 K/mm3 0.0-0.5 N EO#) BASOPHIL # (test code = 0.11 K/mm3 0.0-0.2 N BA#) NUCLEATED RBC # (test 0.00 K/mm3 0.0-0.1 N code = NRBC#) MANUAL DIFF REQUIRED NO, ONLY SCAN NEEDED (test code = MDIFF) DIFFERENTIAL [id number] 09:11:00 Test Item Value Reference Range Interpretation Comments STAIN ACCEPTABILITY (test STAIN ACCEPTABLE code = STN ACCEPTABLE) POLYCHROMASIA (test code = 1+ POLC) HYPOCHROMIA (test code = 1+ HYPO) ANISOCYTOSIS (test code = 1+ ANISO) MICROCYTOSIS (test code = 1+ MICR) PLATELET ESTIMATE (test code ADEQUATE = PLTEST) PLATELET MORPHOLOGY (test NORMAL code = PLTMORPH) [id number] 08:40:00 Test Item Value Reference Range Interpretation Comments GLYCOSYLATED HEMOGLOBIN 11.0 % HbA1 WILLA MATOS (HA1C) (test code = DIAGNOSI S: HbA1C GLYHGB) (%) ---- ------ Diab etic >6.4Prediabetes 5.7 - 6.4Normal <5.7 ESTIMATED AVERAGE 269 MG/DL GLUCOSE (test code = EAG) CBC W/AUTO [id number] 08:23:00 Test Item Value Reference Range Interpretation Comments WHITE BLOOD CELL (test 16.7 K/mm3 4.5-12.5 H code = WBC) RED BLOOD CELL (test code 5.39 mill/mm3 4.0-5.8 N = RBC) HEMOGLOBIN (test code = 14.0 gram/dL 13.0-17.5 N HGB) HEMATOCRIT (test code = 46.9 % 42.0-52.0 N HCT) MEAN CELL VOLUME (test 87.0 fL 80-98 N code = MCV) MEAN CELL HGB (test code 26.0 picogram 27.0-33.0 L = MCH) MEAN CELL HGB 29.9 gram/dL 33.0-36.0 L CONCETRATION (test code = MCHC) RED CELL DISTRIBUTION 15.8 % 11.6-16.2 N WIDTH (test code = RDW) RED CELL DISTRIBUTION 49.3 fL 37.0-51.0 N WIDTH SD (test code = RDW-SD) PLATELET COUNT (test code 378 K/mm3 150-450 N = PLT) MEAN PLATELET VOLUME 9.1 fL 6.7-11.0 N (test code = MPV) NEUTROPHIL % (test code = 76.7 % 39.0-69.0 H NT%) IMMATURE GRANULOCYTE % 0.7 % 0.0-5.0 N (test code = IG%) LYMPHOCYTE % (test code = 14.0 % 25.0-55.0 L LY%) MONOCYTE % (test code = 6.6 % 0.0-10.0 N MO%) EOSINOPHIL % (test code = 1.3 % 0.0-5.0 N EO%) BASOPHIL % (test code = 0.7 % 0.0-1.0 N BA%) NUCLEATED RBC % (test 0.0 % 0-0 N code = NRBC%) NEUTROPHIL # (test code = 12.79 K/mm3 1.8-7.7 H NT#) IMMATURE GRANULOCYTE # 0.11 x10 3/uL 0-0.03 H (test code = IG#) LYMPHOCYTE # (test code = 2.33 K/mm3 1.0-5.0 N LY#) MONOCYTE # (test code = 1.10 K/mm3 0-0.8 H MO#) EOSINOPHIL # (test code = 0.22 K/mm3 0.0-0.5 N EO#) BASOPHIL # (test code = 0.11 K/mm3 0.0-0.2 N BA#) NUCLEATED RBC # (test 0.00 K/mm3 0.0-0.1 N code = NRBC#) MANUAL DIFF REQUIRED NO, ONLY SCAN NEEDED (test code = MDIFF) DIFFERENTIAL [id number] 08:23:00 Test Item Value Reference Range Interpretation Comments STAIN ACCEPTABILITY (test code = STN ACCEPTABLE) CABOT RINGS (test code = CAB) MORPHOLOGY COMMENT (test code = MOC) PLATELET ESTIMATE (test code = PLTEST) PLATELET MORPHOLOGY (test code = PLTMORPH) CBC W/AUTO [id number] 08:23:00 Test Item Value Reference Range Interpretation Comments WHITE BLOOD CELL (test 16.7 K/mm3 4.5-12.5 H code = WBC) RED BLOOD CELL (test code 5.39 mill/mm3 4.0-5.8 N = RBC) HEMOGLOBIN (test code = 14.0 gram/dL 13.0-17.5 N HGB) HEMATOCRIT (test code = 46.9 % 42.0-52.0 N HCT) MEAN CELL VOLUME (test 87.0 fL 80-98 N code = MCV) MEAN CELL HGB (test code 26.0 picogram 27.0-33.0 L = MCH) MEAN CELL HGB 29.9 gram/dL 33.0-36.0 L CONCETRATION (test code = MCHC) RED CELL DISTRIBUTION 15.8 % 11.6-16.2 N WIDTH (test code = RDW) RED CELL DISTRIBUTION 49.3 fL 37.0-51.0 N WIDTH SD (test code = RDW-SD) PLATELET COUNT (test code 378 K/mm3 150-450 N = PLT) MEAN PLATELET VOLUME 9.1 fL 6.7-11.0 N (test code = MPV) NEUTROPHIL % (test code = 76.7 % 39.0-69.0 H NT%) IMMATURE GRANULOCYTE % 0.7 % 0.0-5.0 N (test code = IG%) LYMPHOCYTE % (test code = 14.0 % 25.0-55.0 L LY%) MONOCYTE % (test code = 6.6 % 0.0-10.0 N MO%) EOSINOPHIL % (test code = 1.3 % 0.0-5.0 N EO%) BASOPHIL % (test code = 0.7 % 0.0-1.0 N BA%) NUCLEATED RBC % (test 0.0 % 0-0 N code = NRBC%) NEUTROPHIL # (test code = 12.79 K/mm3 1.8-7.7 H NT#) IMMATURE GRANULOCYTE # 0.11 x10 3/uL 0-0.03 H (test code = IG#) LYMPHOCYTE # (test code = 2.33 K/mm3 1.0-5.0 N LY#) MONOCYTE # (test code = 1.10 K/mm3 0-0.8 H MO#) EOSINOPHIL # (test code = 0.22 K/mm3 0.0-0.5 N EO#) BASOPHIL # (test code = 0.11 K/mm3 0.0-0.2 N BA#) NUCLEATED RBC # (test 0.00 K/mm3 0.0-0.1 N code = NRBC#) MANUAL DIFF REQUIRED NO, ONLY SCAN NEEDED (test code = MDIFF) DIFFERENTIAL [id number] 08:23:00 Test Item Value Reference Range Interpretation Comments STAIN ACCEPTABILITY (test code = STN ACCEPTABLE) MORPHOLOGY COMMENT (test code = MOC) PLATELET ESTIMATE (test code = PLTEST) PLATELET MORPHOLOGY (test code = PLTMORPH) CBC W/AUTO [id number] 08:22:00 Test Item Value Reference Range Interpretation Comments WHITE BLOOD CELL (test 16.7 K/mm3 4.5-12.5 H code = WBC) RED BLOOD CELL (test code 5.39 mill/mm3 4.0-5.8 N = RBC) HEMOGLOBIN (test code = 14.0 gram/dL 13.0-17.5 N HGB) HEMATOCRIT (test code = 46.9 % 42.0-52.0 N HCT) MEAN CELL VOLUME (test 87.0 fL 80-98 N code = MCV) MEAN CELL HGB (test code 26.0 picogram 27.0-33.0 L = MCH) MEAN CELL HGB 29.9 gram/dL 33.0-36.0 L CONCETRATION (test code = MCHC) RED CELL DISTRIBUTION 15.8 % 11.6-16.2 N WIDTH (test code = RDW) RED CELL DISTRIBUTION 49.3 fL 37.0-51.0 N WIDTH SD (test code = RDW-SD) PLATELET COUNT (test code 378 K/mm3 150-450 N = PLT) MEAN PLATELET VOLUME 9.1 fL 6.7-11.0 N (test code = MPV) NEUTROPHIL % (test code = 76.7 % 39.0-69.0 H NT%) IMMATURE GRANULOCYTE % 0.7 % 0.0-5.0 N (test code = IG%) LYMPHOCYTE % (test code = 14.0 % 25.0-55.0 L LY%) MONOCYTE % (test code = 6.6 % 0.0-10.0 N MO%) EOSINOPHIL % (test code = 1.3 % 0.0-5.0 N EO%) BASOPHIL % (test code = 0.7 % 0.0-1.0 N BA%) NUCLEATED RBC % (test 0.0 % 0-0 N code = NRBC%) NEUTROPHIL # (test code = 12.79 K/mm3 1.8-7.7 H NT#) IMMATURE GRANULOCYTE # 0.11 x10 3/uL 0-0.03 H (test code = IG#) LYMPHOCYTE # (test code = 2.33 K/mm3 1.0-5.0 N LY#) MONOCYTE # (test code = 1.10 K/mm3 0-0.8 H MO#) EOSINOPHIL # (test code = 0.22 K/mm3 0.0-0.5 N EO#) BASOPHIL # (test code = 0.11 K/mm3 0.0-0.2 N BA#) NUCLEATED RBC # (test 0.00 K/mm3 0.0-0.1 N code = NRBC#) MANUAL DIFF REQUIRED NO, ONLY SCAN NEEDED (test code = MDIFF) DIFFERENTIAL [id number] 08:22:00 Test Item Value Reference Range Interpretation Comments STAIN ACCEPTABILITY (test code = STN ACCEPTABLE) CABOT RINGS (test code = CAB) MORPHOLOGY COMMENT (test code = MOC) PLATELET ESTIMATE (test code = PLTEST) PLATELET MORPHOLOGY (test code = PLTMORPH) CBC W/AUTO [id number] 08:22:00 Test Item Value Reference Range Interpretation Comments WHITE BLOOD CELL (test 16.7 K/mm3 4.5-12.5 H code = WBC) RED BLOOD CELL (test code 5.39 mill/mm3 4.0-5.8 N = RBC) HEMOGLOBIN (test code = 14.0 gram/dL 13.0-17.5 N HGB) HEMATOCRIT (test code = 46.9 % 42.0-52.0 N HCT) MEAN CELL VOLUME (test 87.0 fL 80-98 N code = MCV) MEAN CELL HGB (test code 26.0 picogram 27.0-33.0 L = MCH) MEAN CELL HGB 29.9 gram/dL 33.0-36.0 L CONCETRATION (test code = MCHC) RED CELL DISTRIBUTION 15.8 % 11.6-16.2 N WIDTH (test code = RDW) RED CELL DISTRIBUTION 49.3 fL 37.0-51.0 N WIDTH SD (test code = RDW-SD) PLATELET COUNT (test code 378 K/mm3 150-450 N = PLT) MEAN PLATELET VOLUME 9.1 fL 6.7-11.0 N (test code = MPV) NEUTROPHIL % (test code = 76.7 % 39.0-69.0 H NT%) IMMATURE GRANULOCYTE % 0.7 % 0.0-5.0 N (test code = IG%) LYMPHOCYTE % (test code = 14.0 % 25.0-55.0 L LY%) MONOCYTE % (test code = 6.6 % 0.0-10.0 N MO%) EOSINOPHIL % (test code = 1.3 % 0.0-5.0 N EO%) BASOPHIL % (test code = 0.7 % 0.0-1.0 N BA%) NUCLEATED RBC % (test 0.0 % 0-0 N code = NRBC%) NEUTROPHIL # (test code = 12.79 K/mm3 1.8-7.7 H NT#) IMMATURE GRANULOCYTE # 0.11 x10 3/uL 0-0.03 H (test code = IG#) LYMPHOCYTE # (test code = 2.33 K/mm3 1.0-5.0 N LY#) MONOCYTE # (test code = 1.10 K/mm3 0-0.8 H MO#) EOSINOPHIL # (test code = 0.22 K/mm3 0.0-0.5 N EO#) BASOPHIL # (test code = 0.11 K/mm3 0.0-0.2 N BA#) NUCLEATED RBC # (test 0.00 K/mm3 0.0-0.1 N code = NRBC#) MANUAL DIFF REQUIRED NO, ONLY SCAN NEEDED (test code = MDIFF) DIFFERENTIAL [id number] 08:22:00 Test Item Value Reference Range Interpretation Comments STAIN ACCEPTABILITY (test code = STN ACCEPTABLE) CABOT RINGS (test code = CAB) MORPHOLOGY COMMENT (test code = MOC) PLATELET ESTIMATE (test code = PLTEST) PLATELET MORPHOLOGY (test code = PLTMORPH) - CT ABD PELVIS [id number] 20:38:00 [facility]Name: RAN EVERETT : 1975 Sex: M Name: RAN EVERETT [facility] : Age/S: 44 / M [address] [facility] Unit #: [id number] Loc: [place] [address] Phys: Ban Arnold [employer] Acct: [id number] Dis Date: Status: REG ER PHONE #: [phone] Exam Date: 08/29/20202022 FAX #: [phone] 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 There is a skin defect in the left groin region and there is an irregular mass of soft tissue density within subcutaneous tissues. This mass measures 5 x 6 cm in diameter. It is associated with moderately enlarged lymph nodes in the left groin region. Liver, biliary system, pancreas, spleen, adrenal glands and kidneys unremarkable; no hydronephrosis; no acute abdominal abnormalities. No pelvic mass lesions and no abnormal intra or retroperitoneal fluid collections. Lung bases are clear. IMPRESSION: 1. Left groin mass. This could be an inflammatory mass but no fluid collection is seen. Alternatively,this could represent an ulcerated neoplasm. 2. Additional left inguinal adenopathy. 3. No intra-abdominal abnormalities. Location code: [facility] at 2037 Reported and signed by: Pillo Basilio M.D. CC: Ban Arnold NP Technologist:HEATHER CANADA RT(R) CT CTDI: DLP: Trnscb Date/Time: 08/29/2020 (2037) t.GRW Orig Print D/T: S: 08/29/2020 (2040) PAGE 1 Signed Report- XR CHEST 1 V 2020-08-29 20:14:00 [facility])Name: RAN EVERETT : 1975 Sex: M FAX: Ban Arnold NP [place]: B St: REG Name: RAN EVERETT [facility] : 1975 Age/S: 44/M [address] [facility] Unit #: [id number] Loc: [place] [address] Phys: Ban Arnold NP Acct: [id number] Dis Date: Status: REG ER PHONE #: [phone] Exam Date: 08/29/2020 191 FAX #: [phone] Reason: CODE SEPSIS EXAMS: CPT CODE: [id number] XR CHEST 1 V 58689 EXAM: Chest X- ray, 1 view; CLINICAL HISTORY: Code sepsis; FINDINGS: The lungs are clear, no infiltrates, no edema; no effusions; no pneumothorax; normal cardiomediastinal silhouette. Old, consolidated fractures of the 6th and 7th ribs on the right. IMPRESSION: No evidence of active cardiopulmonary disease. Location code: at 2013 Reported and signed by: Pillo Basilio M.D. CC: Ban Arnold NP Technologist: Heather CLAROS(R) Trnscrd Date/Time/By: 08/29/2020 (2013) : By: SabihaGRW Orig Print D/T: S: 08/29/2020 (2017) PAGE 1 Signed ReportCOVID 19 INHOUSE [id number] 20:02:00 Test Item Value Reference Range Interpretation Comments COVID 19 INHOUSE AG (test code = NEGATIVE NEGATIVE [id number]) BASIC METABOLIC [id number] 19:53:00 Test Item Value Reference Range Interpretation Comments SODIUM (test code = 132 mmol/L 136-145 L NA) POTASSIUM (test code 4.2 mmol/L 3.5-5.1 N = K) CHLORIDE (test code 100.0 mmol/L 98-107 N = CL) CARBON DIOXIDE (test 28.0 mmol/L 21-32 N code = CO2) ANION GAP (test code 8.2 10-20 L = GAP) GLUCOSE (test code = 291 mg/dL 74-106 H GLU) BLOOD UREA NITROGEN 11 mg/dL 7-18 N (test code = BUN) GLOMERULAR > 60 mL/min See_Comment Estimated GFR b y FILTRATION RATE using Modifi ed MDRD (test code = GFR) formula. ronic kidney disease is defined as eith er kidney damageor GFR <60 mL/min/1.73 m2 for >3 months. [Automated mess age] The system Need Fixed generated this result transmitted ref erence range: >=60. Th e reference range was not used to int erpret this result as normal/abnormal . CREATININE (test 1.00 mg/dL 0.7-1.3 N code = CREAT) BUN/CREATININE RATIO 11.6 10-20 N (test code = BUN/CREA) CALCIUM (test code = 8.5 mg/dL 8.5-10.1 N CA) HEPATIC FUNCTION [id number] 19:53:00 Test Item Value Reference Range Interpretation Comments TOTAL PROTEIN (test 7.8 gram/dL 6.4-8.2 N code = PROT) ALBUMIN (test code = 2.9 g/dL 3.4-5.0 L ALB) GLOBULIN (test code = 4.9 gram/dL 2.7-4.2 H GLOB) ALBUMIN/GLOBULIN RATIO 0.6 0.75-1.50 L (test code = A/G) BILIRUBIN TOTAL (test 0.20 mg/dL 0.0-1.0 N code = BILT) BILIRUBIN DIRECT (test < 0.10 mg/dL 0.0-0.20 N code = BILD) SGOT/AST (test code = 17 IUnit/L 15-37 N AST) SGPT/ALT (test code = 17 IUnit/L 12-78 N ALT) ALKALINE PHOSPHATASE 116 IUnit/L 45-117 N Note change in TOTAL (test code = reference range due ALKP) to change in reagent. [id number] 19:53:00 Test Item Value Reference Range Interpretation Comments TROPONIN-I (test code = TROPI) < 0.006 ng/mL 0-0.045 N B-TYPE NATRIURETIC [id number] 19:52:00 Test Item Value Reference Range Interpretation Comments B-TYPE NATRIURETIC PEPTIDE 20.0 pgram/mL 0-100 N (test code = BNP) LACTIC [id number] 19:33:00 Test Item Value Reference Range Interpretation Comments LACTIC ACID (test code = LACT) 1.3 mmol/L 0.4-1.9 N CBC W/AUTO [id number] 19:15:00 Test Item Value Reference Range Interpretation Comments WHITE BLOOD CELL (test code = 17.9 K/mm3 4.5-12.5 H WBC) RED BLOOD CELL (test code = 5.28 mill/mm3 4.0-5.8 N RBC) HEMOGLOBIN (test code = HGB) 13.9 gram/dL 13.0-17.5 N HEMATOCRIT (test code = HCT) 45.7 % 42.0-52.0 N MEAN CELL VOLUME (test code = 86.6 fL 80-98 N MCV) MEAN CELL HGB (test code = MCH) 26.3 picogram 27.0-33.0 L MEAN CELL HGB CONCETRATION 30.4 gram/dL 33.0-36.0 L (test code = MCHC) RED CELL DISTRIBUTION WIDTH 15.8 % 11.6-16.2 N (test code = RDW) RED CELL DISTRIBUTION WIDTH SD 49.2 fL 37.0-51.0 N (test code = RDW-SD) PLATELET COUNT (test code = 363 K/mm3 150-450 N PLT) MEAN PLATELET VOLUME (test code 9.5 fL 6.7-11.0 N = MPV) NEUTROPHIL % (test code = NT%) 76.4 % 39.0-69.0 H IMMATURE GRANULOCYTE % (test 0.8 % 0.0-5.0 N code = IG%) LYMPHOCYTE % (test code = LY%) 14.3 % 25.0-55.0 L MONOCYTE % (test code = MO%) 6.3 % 0.0-10.0 N EOSINOPHIL % (test code = EO%) 1.6 % 0.0-5.0 N BASOPHIL % (test code = BA%) 0.6 % 0.0-1.0 N NUCLEATED RBC % (test code = 0.0 % 0-0 N NRBC%) NEUTROPHIL # (test code = NT#) 13.72 K/mm3 1.8-7.7 H IMMATURE GRANULOCYTE # (test 0.14 x10 3/uL 0-0.03 H code = IG#) LYMPHOCYTE # (test code = LY#) 2.56 K/mm3 1.0-5.0 N MONOCYTE # (test code = MO#) 1.13 K/mm3 0-0.8 H EOSINOPHIL # (test code = EO#) 0.28 K/mm3 0.0-0.5 N BASOPHIL # (test code = BA#) 0.10 K/mm3 0.0-0.2 N NUCLEATED RBC # (test code = 0.00 K/mm3 0.0-0.1 N NRBC#) [place] [id number] 07:04:53 Test Item Value Reference Range Interpretation Comments [place] Level (test code = 0.52 mmol/L 0.60-1.20 L [place] Level) [place] [id number] 06:31:16 Test Item Value Reference Range Interpretation Comments [place] Level (test code = 0.39 mmol/L 0.60-1.20 L [place] Level) RPR [id number] 03:58:40 Test Item Value Reference Range Interpretation Comments RPR Qual (test code = RPR Qual) Non-Reactive Non-Reactive Reactive Control (test code = Reactive Reactive Control) Weak Reactive Control (test Weak Reactive code = Weak Reactive Control) Non-Reactive Control (test code Non-Reactive = Non-Reactive Control) Lot # (test code = Lot #) [id number] N Expiration Dt (test code = 08/26/2019 N Expiration Dt) Thyroid Stimulating [id number] 02:50:00 Test Item Value Reference Range Interpretation Comments TSH (test code = TSH) 1.590 mIU/mL 0.270-4.200 Lipid [id number] 02:33:22 Test Item Value Reference Range Interpretation Comments Cholesterol Total 197 mg/dL 0-200 RISK OF HE ART (test code = DISEASEPublishe d by Cholesterol Total) [employer] Lashawn lyte Optimal Borderl ine Increased RiskC HOL <200 200-239 >2 40TRIG <150 150-199 >2 00HDL Male >60 <40H DL Female >60 <5 0LDL <100 130-159 >1 60LDL Near optimal is 100-129 Triglycerides (test 123 mg/dL 9-200 code = Triglycerides) HDL (test code = HDL) 38 mg/dL 40-60 L LDL (test code = LDL) 135 mg/dL 0-130 H The eq uation being used in this calcula tion is LDL = (Chol - H DL) - (Trig / 5) VLDL (test code = 25 mg/dL 5-40 The equati on being used VLDL) in this calcula tion is VLDL = Trig / 5 Chol/HDL (test code = 5.2 ratio 0.0-5.0 H Chol/HDL) LDL/HDL Ratio (test 4 N The equa tion being used code = LDL/HDL Ratio) in thi s calculation is LDL/HDL Ratio=L DL Calc/HDL Chol Comprehensive Metabolic [id number] 18:09:30 Test Item Value Reference Range Interpretation Comments Sodium Level (test code = Sodium 141.0 mmol/L 135.0-145.0 Level) Potassium Level (test code = 4.9 mmol/L 3.5-5.1 Potassium Level) Chloride Level (test code = 102 mmol/L 98-105 Chloride Level) CO2 (test code = CO2) 26 mmol/L 22-29 Anion Gap (test code = Anion 13 mmol/L 7-16 Gap) BUN (test code = BUN) 12.20 mg/dL 6.00-20.00 Creatinine Level (test code = 0.90 mg/dL 0.70-1.20 Creatinine Level) BUN/Creat Ratio (test code = 14 N BUN/Creat Ratio) Glucose Level (test code = 91 mg/dL 70-115 Glucose Level) Calcium Level (test code = 9.6 mg/dL 8.3-10.5 Calcium Level) Alk Phos (test code = Alk Phos) 83 U/L 40-129 Bilirubin Total (test code = 0.3 mg/dL 0.1-0.9 Bilirubin Total) Albumin Level (test code = 4.4 g/dL 3.5-5.2 Albumin Level) Protein Total (test code = 7.2 g/dL 6.4-8.3 Protein Total) ALT (test code = ALT) 20 U/L 1-41 AST (test code = AST) 16 U/L 1-40 Globulin (test code = Globulin) 2.8 g/dL 2.9-3.1 L A/G Ratio (test code = A/G 1.6 ratio N Ratio) Comprehensive Metabolic [id number] 18:09:30 Test Item Value Reference Range Interpretation Comments Sodium Level (test 141.0 mmol/L 135.0-145.0 code = Sodium Level) Potassium Level 4.9 mmol/L 3.5-5.1 (test code = Potassium Level) Chloride Level (test 102 mmol/L 98-105 code = Chloride Level) CO2 (test code = 26 mmol/L 22-29 CO2) Anion Gap (test code 13 mmol/L 7-16 = Anion Gap) BUN (test code = 12.20 mg/dL 6.00-20.00 BUN) Creatinine Level 0.90 mg/dL 0.70-1.20 (test code = Creatinine Level) BUN/Creat Ratio 14 N (test code = BUN/Creat Ratio) Glucose Level (test 91 mg/dL 70-115 code = Glucose Level) Calcium Level (test 9.6 mg/dL 8.3-10.5 code = Calcium Level) Alk Phos (test code 83 U/L 40-129 = Alk Phos) Bilirubin Total 0.3 mg/dL 0.1-0.9 (test code = Bilirubin Total) Albumin Level (test 4.4 g/dL 3.5-5.2 code = Albumin Level) Protein Total (test 7.2 g/dL 6.4-8.3 code = Protein Total) ALT (test code = 20 U/L 1-41 ALT) AST (test code = 16 U/L 1-40 AST) Globulin (test code 2.8 g/dL 2.9-3.1 L = Globulin) A/G Ratio (test code 1.6 ratio N = A/G Ratio) eGFR AA (test code = >60 N eGFR (e stimated eGFR AA) mL/min/1.73 m2 Glomerular Filtration Rate ) is an estimated va lue, calculated from the patient's serum creatinine usin g the MDRD equation. It is NOT the patient 's actual GFR. The eGFR provides a more clinically usef ul measure of kidn ey disease than se rum creatinine alone.This calculation aditi es sex and race in to account, if the information is provided. If th e race is not provided, and t he patient is -Selina n, multiply by 1.2 12. If sex is not provided, and t he patient is fema le, multiply by 0.7 42. Results for pat ients <18 years of ag e have not been validated by th e MDRD study and should be interpreted wit h caution. eGFR R esult Interpretation: eGFR > or = 60 is in the Normal RangeeGF R < 60 may mean kid wong diseaseeGFR < 1 5 may mean kidney failure Rang es recommended by the National Kidney Foundation, http://nkdep.ni h.gov Comprehensive Metabolic [id number] 18:09:30 Test Item Value Reference Range Interpretation Comments Sodium Level (test 141.0 mmol/L 135.0-145.0 code = Sodium Level) Potassium Level 4.9 mmol/L 3.5-5.1 (test code = Potassium Level) Chloride Level (test 102 mmol/L 98-105 code = Chloride Level) CO2 (test code = 26 mmol/L 22-29 CO2) Anion Gap (test code 13 mmol/L 7-16 = Anion Gap) BUN (test code = 12.20 mg/dL 6.00-20.00 BUN) Creatinine Level 0.90 mg/dL 0.70-1.20 (test code = Creatinine Level) BUN/Creat Ratio 14 N (test code = BUN/Creat Ratio) Glucose Level (test 91 mg/dL 70-115 code = Glucose Level) Calcium Level (test 9.6 mg/dL 8.3-10.5 code = Calcium Level) Alk Phos (test code 83 U/L 40-129 = Alk Phos) Bilirubin Total 0.3 mg/dL 0.1-0.9 (test code = Bilirubin Total) Albumin Level (test 4.4 g/dL 3.5-5.2 code = Albumin Level) Protein Total (test 7.2 g/dL 6.4-8.3 code = Protein Total) ALT (test code = 20 U/L 1-41 ALT) AST (test code = 16 U/L 1-40 AST) Globulin (test code 2.8 g/dL 2.9-3.1 L = Globulin) A/G Ratio (test code 1.6 ratio N = A/G Ratio) eGFR AA (test code = >60 N eGFR (e stimated eGFR AA) mL/min/1.73 m2 Glomerular Filtration Rate ) is an estimated va lue, calculated from the patient's serum creatinine usin g the MDRD equation. It is NOT the patient 's actual GFR. The eGFR provides a more clinically usef ul measure of kidn ey disease than se rum creatinine alone.This calculation aditi es sex and race in to account, if the information is provided. If th e race is not provided, and t he patient is -Selina n, multiply by 1.2 12. If sex is not provided, and t he patient is fema le, multiply by 0.7 42. Results for pat ients <18 years of ag e have not been validated by [facility] MDRD study and should be interpreted wit h caution. eGFR R esult Interpretation: eGFR > or = 60 is in the Normal RangeeGF R < 60 may mean kid wong diseaseeGFR < 1 5 may mean kidney failure Rang es recommended by the National Kidney Foundation, http://nkdep.ni h.gov eGFR Non-AA (test >60.00 N eGFR (jose mated code = eGFR Non-AA) mL/min/1.73 m2 Glomer ular Filtration Rate ) is an estimated va lue, calculated from the patient's serum creatinine usin g the MDRD equation. It is NOT the patient 's actual GFR. The eGFR provides a more clinically usef ul measure of kidn ey disease than se rum creatinine alone.This calculation aditi es sex and race in to account, if the information is provided. If th e race is not provided, and t he patient is -Selina n, multiply by 1.2 12. If sex is not provided, and t he patient is fema le, multiply by 0.7 42. Results for pat ients <18 years of ag e have not been validated by [facility] MDRD study and should be interpreted wit h caution. eGFR R esult Interpretation: eGFR > or = 60 is in the Normal RangeeGF R < 60 may mean kid wong diseaseeGFR < 1 5 may mean kidney failure Rang es recommended by the National Kidney Foundation, http://nkdep.ni h.gov Complete Blood Count with [id number] 17:49:02 Test Item Value Reference Range Interpretation Comments WBC (test code = WBC) 13.2 x10 4.4-10.5 H RBC (test code = RBC) 5.59 x10 4.10-5.70 Hgb (test code = Hgb) 16.3 g/dL 13.4-17.4 MCV (test code = MCV) 89.60 fL 80.00-100.00 Hct (test code = Hct) 50.1 % 38.7-52.0 MCHC (test code = 32.50 g/dL 32.00-37.50 MCHC) RDW CV (test code = 13.2 % 11.5-14.5 RDW CV) MCH (test code = MCH) 29.2 pg 27.0-32.5 Platelets (test code = 365.0 x10 140.0-440.0 Platelets) MPV (test code = MPV) 9.3 fL N Slide Review (test Auto Auto Result cr eated by code = Slide Review) GL_SJM_ SLIDE_REV_AUTO nRBC (test code = 0 N nRBC) NRBC Abs (test code = 0.00 x10 N NRBC Abs) IPF (test code = IPF) 0 % N Automated [id number] 17:49:02 Test Item Value Reference Range Interpretation Comments Neutro Auto (test code = Neutro 60.9 % 36.0-70.0 Auto) Lymph Auto (test code = Lymph Auto) 28.2 % 12.0-44.0 Vilas Auto (test code = Vilas Auto) 8.0 % 0.0-11.0 Eos, Auto (test code = Eos, Auto) 1.7 % 0.0-7.0 Basophil Auto (test code = Basophil 0.7 % 0.0-2.0 Auto) Neutro Absolute (test code = Neutro 8.0 x10 1.6-7.4 H Absolute) Lymph Absolute (test code = Lymph 3.71 x10 .50-4.60 Absolute) Vilas Absolute (test code = Vilas 1.06 x10 .00-1.20 Absolute) Eos Absolute (test code = Eos 0.23 x10 0.00-0.74 Absolute) Baso Absolute (test code = Baso 0.09 x10 0.00-0.21 Absolute) IG [id number] 17:49:02 Test Item Value Reference Range Interpretation Comments IG (test code = IG) 0.5 % 0.0-5.0 IG Abs (test code = IG Abs) 0 x10 N Comprehensive Metabolic [id number] 13:30:37 Test Item Value Reference Range Interpretation Comments Sodium Level (test 137.0 mmol/L 135.0-145.0 code = Sodium Level) Potassium Level (test 5.5 mmol/L 3.5-5.1 N Specim en hemolyzed. code = Potassium K+ results may be Level) spuriously elev ated. Recommend speci men recollection. Chloride Level (test 103 mmol/L 98-105 code = Chloride Level) CO2 (test code = CO2) 22 mmol/L 22-29 Anion Gap (test code 12 mmol/L 7-16 = Anion Gap) BUN (test code = BUN) 11.70 mg/dL 6.00-20.00 Creatinine Level 1.10 mg/dL 0.70-1.20 (test code = Creatinine Level) BUN/Creat Ratio (test 11 N code = BUN/Creat Ratio) Glucose Level (test 128 mg/dL 70-115 H code = Glucose Level) Calcium Level (test 9.6 mg/dL 8.3-10.5 code = Calcium Level) Alk Phos (test code = 85 U/L 40-129 Alk Phos) Bilirubin Total (test 0.4 mg/dL 0.1-0.9 code = Bilirubin Total) Albumin Level (test 4.7 g/dL 3.5-5.2 code = Albumin Level) Protein Total (test 8.1 g/dL 6.4-8.3 code = Protein Total) ALT (test code = ALT) 22 U/L 1-41 AST (test code = AST) 30 U/L 1-40 N Specim en Hemolyzed. Globulin (test code = 3.4 g/dL 2.9-3.1 H Globulin) A/G Ratio (test code 1.4 ratio N = A/G Ratio) Comprehensive Metabolic [id number] 13:30:37 Test Item Value Reference Range Interpretation Comments Sodium Level (test 137.0 mmol/L 135.0-145.0 code = Sodium Level) Potassium Level 5.5 mmol/L 3.5-5.1 N Specimen hem olyzed. (test code = K+ results may be Potassium Level) spuriously elevated. Recommend speci men recollection. Chloride Level (test 103 mmol/L 98-105 code = Chloride Level) CO2 (test code = 22 mmol/L 22-29 CO2) Anion Gap (test code 12 mmol/L 7-16 = Anion Gap) BUN (test code = 11.70 mg/dL 6.00-20.00 BUN) Creatinine Level 1.10 mg/dL 0.70-1.20 (test code = Creatinine Level) BUN/Creat Ratio 11 N (test code = BUN/Creat Ratio) Glucose Level (test 128 mg/dL 70-115 H code = Glucose Level) Calcium Level (test 9.6 mg/dL 8.3-10.5 code = Calcium Level) Alk Phos (test code 85 U/L 40-129 = Alk Phos) Bilirubin Total 0.4 mg/dL 0.1-0.9 (test code = Bilirubin Total) Albumin Level (test 4.7 g/dL 3.5-5.2 code = Albumin Level) Protein Total (test 8.1 g/dL 6.4-8.3 code = Protein Total) ALT (test code = 22 U/L 1-41 ALT) AST (test code = 30 U/L 1-40 N Specimen He molyzed. AST) Globulin (test code 3.4 g/dL 2.9-3.1 H = Globulin) A/G Ratio (test code 1.4 ratio N = A/G Ratio) eGFR AA (test code = >60 N eGFR (e stimated eGFR AA) mL/min/1.73 m2 Glomerular Filtration Rate ) is an estimated va lue, calculated from the patient's serum creatinine usin g the MDRD equation. It is NOT the patient 's actual GFR. The eGFR provides a more clinically usef ul measure of kidn ey disease than se rum creatinine alone.This calculation aditi es sex and race in to account, if the information is provided. If th e race is not provided, and t he patient is -Selina n, multiply by 1.2 12. If sex is not provided, and t he patient is fema le, multiply by 0.7 42. Results for pat ients <18 years of ag e have not been validated by th e MDRD study and should be interpreted wit h caution. eGFR R esult Interpretation: eGFR > or = 60 is in the Normal RangeeGF R < 60 may mean kid wong diseaseeGFR < 1 5 may mean kidney failure Rang es recommended by the National Kidney Foundation, http://nkdep.ni h.gov Alcohol [id number] 13:30:37 Test Item Value Reference Range Interpretation Comments Ethanol Level (test <0.00 g/dL 0.00-0.01 Intoxica annita 0.080 g/dL code = Ethanol or more Level) Ethanol Inst (test <0 N code = Ethanol Inst) Comprehensive Metabolic [id number] 13:30:37 Test Item Value Reference Range Interpretation Comments Sodium Level (test 137.0 mmol/L 135.0-145.0 code = Sodium Level) Potassium Level 5.5 mmol/L 3.5-5.1 N Specimen hem olyzed. (test code = K+ results may be Potassium Level) spuriously elevated. Recommend speci men recollection. Chloride Level (test 103 mmol/L 98-105 code = Chloride Level) CO2 (test code = 22 mmol/L 22-29 CO2) Anion Gap (test code 12 mmol/L 7-16 = Anion Gap) BUN (test code = 11.70 mg/dL 6.00-20.00 BUN) Creatinine Level 1.10 mg/dL 0.70-1.20 (test code = Creatinine Level) BUN/Creat Ratio 11 N (test code = BUN/Creat Ratio) Glucose Level (test 128 mg/dL 70-115 H code = Glucose Level) Calcium Level (test 9.6 mg/dL 8.3-10.5 code = Calcium Level) Alk Phos (test code 85 U/L 40-129 = Alk Phos) Bilirubin Total 0.4 mg/dL 0.1-0.9 (test code = Bilirubin Total) Albumin Level (test 4.7 g/dL 3.5-5.2 code = Albumin Level) Protein Total (test 8.1 g/dL 6.4-8.3 code = Protein Total) ALT (test code = 22 U/L 1-41 ALT) AST (test code = 30 U/L 1-40 N Specimen He molyzed. AST) Globulin (test code 3.4 g/dL 2.9-3.1 H = Globulin) A/G Ratio (test code 1.4 ratio N = A/G Ratio) eGFR AA (test code = >60 N eGFR (e stimated eGFR AA) mL/min/1.73 m2 Glomerular Filtration Rate ) is an estimated va lue, calculated from the patient's serum creatinine usin g the MDRD equation. It is NOT the patient 's actual GFR. The eGFR provides a more clinically usef ul measure of kidn ey disease than se rum creatinine alone.This calculation aditi es sex and race in to account, if the information is provided. If th e race is not provided, and t he patient is -Selina n, multiply by 1.2 12. If sex is not provided, and t he patient is fema le, multiply by 0.7 42. Results for pat ients <18 years of ag e have not been validated by [facility] MDRD study and should be interpreted wit h caution. eGFR R esult Interpretation: eGFR > or = 60 is in the Normal RangeeGF R < 60 may mean kid wong diseaseeGFR < 1 5 may mean kidney failure Rang es recommended by the National Kidney Foundation, http://nkdep.ni h.gov eGFR Non-AA (test >60.00 N eGFR (jose mated code = eGFR Non-AA) mL/min/1.73 m2 Glomer ular Filtration Rate ) is an estimated va lue, calculated from the patient's serum creatinine usin g the MDRD equation. It is NOT the patient 's actual GFR. The eGFR provides a more clinically usef ul measure of kidn ey disease than se rum creatinine alone.This calculation aditi es sex and race in to account, if the information is provided. If th e race is not provided, and t he patient is -Selina n, multiply by 1.2 12. If sex is not provided, and t he patient is fema le, multiply by 0.7 42. Results for pat ients <18 years of ag e have not been validated by [facility] MDRD study and should be interpreted wit h caution. eGFR R esult Interpretation: eGFR > or = 60 is in the Normal RangeeGF R < 60 may mean kid wong diseaseeGFR < 1 5 may mean kidney failure Rang es recommended by the National Kidney Foundation, http://nkdep.ni h.gov Drugs of Abuse Urine [id number] 13:26:52 Test Item Value Reference Range Interpretation Comments Amphetamine Screen Ur Negative Negative For di agnostic (test code = Amphetamine pur poses only. Screen Ur) Positive result s should always b e assessed in conjunction wit h a patient's medic al history. Barbiturate Screen Ur Negative Negative (test code = Barbiturate Screen Ur) Benzodiazepines Ur (test Negative Negative code = Benzodiazepines Ur) Cocaine Screen Ur (test Negative Negative code = Cocaine Screen Ur) U Methadone (test code = Negative Negative U Methadone) Opiate Screen Ur (test Negative Negative code = Opiate Screen Ur) U PCP Scrn (test code = U Negative Negative PCP Scrn) U Propoxyphene (test code Negative Negative = U Propoxyphene) Cannabinoid Screen Ur Negative Negative (test code = Cannabinoid Screen Ur) Complete Blood Count with [id number] 13:17:47 Test Item Value Reference Range Interpretation Comments WBC (test code = WBC) 15.7 x10 4.4-10.5 H RBC (test code = RBC) 5.76 x10 4.10-5.70 H Hgb (test code = Hgb) 16.8 g/dL 13.4-17.4 Hct (test code = Hct) 51.5 % 38.7-52.0 MCV (test code = MCV) 89.40 fL 80.00-100.00 MCHC (test code = 32.60 g/dL 32.00-37.50 MCHC) RDW CV (test code = 13.2 % 11.5-14.5 RDW CV) MCH (test code = MCH) 29.2 pg 27.0-32.5 Platelets (test code = 409.0 x10 140.0-440.0 Platelets) MPV (test code = MPV) 9.3 fL N Slide Review (test Auto Auto Result cr eated by code = Slide Review) GL_SJM_ SLIDE_REV_AUTO nRBC (test code = 0 N nRBC) NRBC Abs (test code = 0.00 x10 N NRBC Abs) IPF (test code = IPF) 0 % N Automated [id number] 13:17:47 Test Item Value Reference Range Interpretation Comments Neutro Auto (test code = Neutro 67.8 % 36.0-70.0 Auto) Lymph Auto (test code = Lymph Auto) 22.2 % 12.0-44.0 Vilas Auto (test code = Vilas Auto) 7.3 % 0.0-11.0 Eos, Auto (test code = Eos, Auto) 1.4 % 0.0-7.0 Basophil Auto (test code = Basophil 0.7 % 0.0-2.0 Auto) Neutro Absolute (test code = Neutro 10.6 x10 1.6-7.4 H Absolute) Lymph Absolute (test code = Lymph 3.48 x10 .50-4.60 Absolute) Vilas Absolute (test code = Vilas 1.14 x10 .00-1.20 Absolute) Eos Absolute (test code = Eos 0.22 x10 0.00-0.74 Absolute) Baso Absolute (test code = Baso 0.11 x10 0.00-0.21 Absolute) IG [id number] 13:17:47 Test Item Value Reference Range Interpretation Comments IG (test code = IG) 0.6 % 0.0-5.0 IG Abs (test code = IG Abs) 0 x10 N
[2020-11-07] MEDS ORDERED: FENTANYL CITR 100 MCG/2 ML ONE (12:09)
[2020-11-07 13:01] LABS: Absolute Lymphocytes (CBC) 3.1 K/uL (0.7-4.9); Basophils % 0.2 % (0-1.3); Hematocrit 30.4 % (39.6-49.0); Lymphocytes % 20.1 % (15.3-44.8); MPV 6.9 fL (7.6-11.3); RBC Red Blood Cell Count 4.29 M/uL (4.33-5.43)
[2020-11-07 13:04] LABS: Protime INR 1.21
[2020-11-07 13:15] LABS: Potassium 4.1 mmol/L (3.5-5.1)
[2020-11-07 13:23] LABS: Anisocytosis 1+; Blood Morphology Comment NOTED (NOT SEEN); Platelet Estimate ADEQ; White Blood Cell Scan OK (OK)
[2020-11-07 13:24] LABS: Hypochromasia 2+
[2020-11-07] MEDS ORDERED: SODIUM HYPOCHLORITE 0.25% 473 ML TOP ONE (16:15)
[2020-11-07] MEDS ORDERED: NA CHLORIDE 0.9% 100 ML ONE (16:39)
[2020-11-07] MEDS ORDERED: CEFEPIME/SWI 1gm 20 ML ONE (16:40)
[2020-11-07] MEDS ORDERED: VANCOMYCIN/NS 1 gm 1 GM/250 ML BAG IVPB ONE (17:00)
--- NOTE | 2020-11-07 17:24 | ER ---
Nurse's Notes [facility] Name: Yassine Guerrero Age: 45 yrs Sex: Male : 1975 Arrival Date: 11/07/2020 Time: 11:[address] Private MD: Diagnosis: Infected Open Wound Left Groin Presentation: 11/07 11:53 Chief complaint: EMS states: patient bleeding from wound in left groin. Coronavirus ap3 screen: At this time, the client does not indicate any symptoms associated with coronavirus-19. Ebola Screen: No symptoms or risks identified at this time. 11:53 Method Of Arrival: EMS: [facility] ap3 11:55 Initial Sepsis Screen: Does the patient meet any 2 criteria? No. Patient's initial ap3 sepsis screen is negative. Does the patient have a suspected source of infection? No. Patient's initial sepsis screen is negative. 12:07 Risk Assessment: Do you want to hurt yourself or someone else? Patient reports no ap3 desire to harm self or others. Onset of symptoms was November 07, 2020. Care prior to arrival: Medication(s) given: 30 mg Toradol IV initiated. 20 GA, in the left forearm. 12:07 Acuity: IRINEO 3 ap3 Triage Assessment: 12:10 General: Appears in no apparent distress. uncomfortable, Behavior is calm, cooperative, ap3 appropriate for age. Pain: Complains of pain in groin, left femoral area and left inguinal area Pain does not radiate. Quality of pain is described as crampy, Pain began suddenly. EENT: No signs and/or symptoms were reported regarding the EENT system. Neuro: Level of Consciousness is awake, alert, obeys commands, Oriented to person, place, time, situation, Appropriate for age Moves all extremities. Speech is normal. Cardiovascular: Reports bleeding. Respiratory: Airway is patent Respiratory effort is even, unlabored, Respiratory pattern is regular, symmetrical. GI: Abdomen is obese. Derm: Wound noted groin, left femoral area, left inguinal area and left iliac crest Wound is purple, raised and textured. Historical: - Allergies: 12:15 No Known Allergies; ap3 - Home Meds: 12:15 None [Active]; ap3 - PMHx: 12:15 Bipolar disorder; CPVC; PTSD; Rheumatoid Arthritis; ap3 - Immunization history:: Adult Immunizations not up to date. - Social history:: Smoking status: Patient reports the use of cigarette tobacco products, smokes one pack cigarettes per day. Screenin:08 Abuse screen: Denies threats or abuse. Nutritional screening: No deficits noted. ap3 Tuberculosis screening: No symptoms or risk factors identified. Fall Risk No fall in past 12 months (0 pts). Secondary diagnosis (15 points) impaired mobility, IV access (20 points). Ambulatory Aid- None/Bed Rest/Nurse Assist (0 pts). Gait- Weak (10 pts.). Mental Status- Oriented to own ability (0 pts). Sepsis Screening:. Assessment: 14:34 Reassessment: Patient and/or family updated on plan of care and expected duration. Pain ap3 level reassessed. Patient is alert, oriented x 3, equal unlabored respirations, skin warm/dry/pink. 18:34 Reassessment: nurse updated patient on NPO after midnight for sx tomorrow morning. ap3 18:36 Reassessment: patients pain reassessed. notified. new orders received. . ap3 19:32 Reassessment: Attempted to call report. vg1 Vital Signs: 11:53 BP 111 / 52; Pulse 109; Resp 18; Pulse Ox 98% on R/A; Pain 7/10; ap3 13:00 Temp 98(O); ss 14:13 BP 108 / 63; Pulse 98; Resp 19; Pulse Ox 100% on R/A; Pain 8/10; ap3 15:16 BP 119 / 50; Pulse 80; Resp 18; Pulse Ox 96% on R/A; ap3 16:07 BP 106 / 73; Pulse 95; Resp 19; Pulse Ox 97% on R/A; ap3 17:16 BP 119 / 62; Pulse 87; Resp 19; Pulse Ox 94% on R/A; ap3 18:36 BP 107 / 64; Pulse 76; Resp 21; Pulse Ox 97% on R/A; Pain 8/10; ap3 ED Course: 11:45 Patient arrived in ED. ss 11:46 Beto Overton PA is PHCP. cp 11:46 Fito Greenberg MD is Attending Physician. cp 11:52 Fay Baca, ZULAY is Primary Nurse. ap3 12:08 Triage completed. ap3 12:15 Arm band placed on right wrist. ap3 12:17 Patient has correct armband on for positive identification. Bed in low position. Call ap3 light in reach. Side rails up X2. desk monitor on. Pulse ox on. NIBP on. Door closed. Noise minimized. 16:07 Consulted physician to see patient. ap3 17:19 Arpan Castaneda DO is Hospitalizing Provider. cp 17:21 Inserted saline lock: 20 gauge in right forearm, using aseptic technique. Blood ap3 collected. 17:24 Lawrence Muniz is Hospitalizing Provider. cp 18:03 CT Abd/Pelvis - IV Contrast Only In Process Unspecified. EDMS 18:[address] via stretcher. ap3 18:34 Wound care: located on abdomen was cleaned with soap and water, dressed with Kerlix, ap3 ABD pads, Patient tolerated well. 19:44 No provider procedures requiring assistance completed. Patient admitted, IV remains in bb place. 19:59 Primary Nurse role handed off by Fay Baca RN mw2 Administered Medications: 11:52 Drug: fentaNYL (PF) 25 mcg {Note: pt awake, alert. .} Route: IVP; Site: left forearm; ap3 13:15 Follow up: Response: No adverse reaction; Pain is decreased ap3 12:36 Drug: NS 0.9% 500 ml Route: IV; Rate: bolus; Site: left forearm; ap3 18:38 Follow up: Response: No adverse reaction; IV Status: Completed infusion ap3 14:05 Drug: fentaNYL (PF) 25 mcg Route: IVP; Site: left forearm; ap3 16:14 Follow up: Response: No adverse reaction; Pain is decreased ap3 17:21 Drug: Cefepime 2 grams Route: IVPB; Rate: 200 ml/hr; Infused Over: 30 mins; Site: left ap3 forearm; 18:37 Follow up: IV Status: Completed infusion; IV Intake: 100ml ap3 18:37 Follow up: Response: No adverse reaction ap3 18:33 Drug: vancoMYCIN 1 grams Route: IVPB; Infused Over: 2 hrs; Site: right forearm; ap3 18:37 Drug: fentaNYL (PF) 25 mcg {Note: patient awake, alert. states pain is 8/10.} Route: ap3 IVP; Site: right forearm; Intake: 18:37 IV: 100ml; Total: 100ml. ap3 Outcome: 17:24 Decision to Hospitalize by Provider. cp 19:44 Admitted to Tele accompanied by tech, via stretcher, room 225, with chart, Report bb called to Kamilah BISWAS 19:44 Condition: stable 19:44 Instructed on the need for admit. 20:00 Patient left the ED. raquel Signatures: Dispatcher [employer] EDCarly Chance RN RN Oriana Marinelli RN Beto Wheat PA PA cp Prokisch, Amanda RN RN ap3 Antony Mejía mw2 Janet Johnston RN RN vg1 Corrections: (The following items were deleted from the chart) 18:35 18:34 Dressings: ABD pad X 2; abdomen Kerlix X 2; abdomen ap3 ap3 18:36 18:34 Wound care: located on abdomen was cleaned with soap and water, dressed with ap3 Kerlix, ABD pads, ap3
--- NOTE | 2020-11-07 17:24 | EDPHYS ---
Physician Documentation [facility] Name: Yassine Guerrero Age: 45 yrs Sex: Male : 1975 Arrival Date: 11/07/2020 Time: 11:[address] Private MD: ED Physician Fito Greenberg HPI: 11/07 11:55 This 45 yrs old Male presents to ER via EMS with complaints of Open Wound cp Left Groin. 11:55 The patient presents with chronic open wound left groin. The complaints affect the left cp groin. Associated signs and symptoms: Pertinent positives: active bleeding, Pertinent negatives fever. Treatment prior to arrival includes: wound packed with toilet tissue. Severity of symptoms: in the emergency department the symptoms have improved, mildly. 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 Has been dealing with intermittent episodes of bleeding from area. Was unable to have surgery for wound in the past due to history of CHF. Historical: - Allergies: 12:15 No Known Allergies; ap3 - Home Meds: 12:15 None [Active]; ap3 - PMHx: 12:15 Bipolar disorder; CPVC; PTSD; Rheumatoid Arthritis; ap3 - Immunization history:: Adult Immunizations not up to date. - Social history:: Smoking status: Patient reports the use of cigarette tobacco products, smokes one pack cigarettes per day. ROS: 12:00 Constitutional: Negative for body aches, chills, fever, poor PO intake. cp 12:00 Eyes: Negative for injury, pain, redness, and discharge. cp 12:00 ENT: Negative for ear pain, sore throat, difficulty swallowing, difficulty handling secretions. 12:00 Cardiovascular: Negative for chest pain, palpitations. 12:00 Respiratory: Negative for cough, shortness of breath, wheezing. 12:00 Abdomen/GI: Negative for abdominal pain, nausea, vomiting, and diarrhea. 12:00 Skin: Positive for of the left inguinal area and groin, chronic open wound. 12:00 Neuro: Negative for altered mental status, headache, weakness. 12:00 All other systems are negative. Exam: 12:05 Constitutional: The patient appears in no acute distress, alert, awake, non-toxic, well cp developed, well nourished, obese. 12:05 Head/Face: Normocephalic, atraumatic. cp 12:05 Eyes: Periorbital structures: appear normal, Conjunctiva: normal, no exudate, no injection, Sclera: no appreciated abnormality, Lids and lashes: appear normal, bilaterally. 12:05 ENT: External ear(s): are unremarkable, Nose: is normal, Mouth: Lips: moist, Oral mucosa: moist, Posterior pharynx: Airway: no evidence of obstruction, patent. 12:05 Chest/axilla: Inspection: normal, Palpation: is normal, no crepitus, no tenderness. 12:05 Cardiovascular: Rate: tachycardic, Rhythm: regular. 12:05 Respiratory: the patient does not display signs of respiratory distress, Respirations: normal, no use of accessory muscles, no retractions, labored breathing, is not present, Breath sounds: are clear throughout, no decreased breath sounds. 12:05 Abdomen/GI: Inspection: obese Bowel sounds: active, all quadrants, Palpation: soft, in all quadrants, moderate abdominal tenderness, in the left groin, rebound tenderness, is not appreciated. 12:07 Skin: large chronic appearing open wound noted to left groin/inguinal area with scant cp bleeding, edges of wound appear eroded and ulcerated. 12:07 Neuro: Orientation: is normal, Mentation: is normal. cp Vital Signs: 11:53 BP 111 / 52; Pulse 109; Resp 18; Pulse Ox 98% on R/A; Pain 7/10; ap3 13:00 Temp 98(O); ss 14:13 BP 108 / 63; Pulse 98; Resp 19; Pulse Ox 100% on R/A; Pain 8/10; ap3 15:16 BP 119 / 50; Pulse 80; Resp 18; Pulse Ox 96% on R/A; ap3 16:07 BP 106 / 73; Pulse 95; Resp 19; Pulse Ox 97% on R/A; ap3 17:16 BP 119 / 62; Pulse 87; Resp 19; Pulse Ox 94% on R/A; ap3 18:36 BP 107 / 64; Pulse 76; Resp 21; Pulse Ox 97% on R/A; Pain 8/10; ap3 MDM: 11:48 Patient medically screened. cp 12:00 Differential diagnosis: chronic wound, sepsis, cellulitis, abscess. cp 16:06 Physician consultation: Jonathan Monaco MD was contacted at 16:06, in the emergency cp department to see patient at 16:06. 17:25 Data reviewed: vital signs, nurses notes, lab test result(s), I have discussed the patient's presentation/case with the attending Emergency Department Physician; and as a result, I will admit patient. 17:25 Counseling: I had a detailed discussion with the patient and/or guardian regarding: the cp historical points, exam findings, and any diagnostic results supporting the discharge/admit diagnosis, lab results, the need for further work-up and treatment in the hospital. 11/07 11:48 Order name: Basic Metabolic Panel 11/07 11:48 Order name: CBC with Diff; Complete Time: 13:42 11/07 13:42 Interpretation: Normal except: WBC 15.30; RBC 4.29; HGB 9.3; HCT 30.4; MCV 70.8; MCH cp 21.7; MCHC 30.6; PLT 523; RDW 19.1; MPV 6.9; NEUT A 10.9. 11/07 11:48 Order name: Type And Screen 11/07 11:48 Order name: PT-INR; Complete Time: 13:42 11/07 11:49 Order name: Basic Metabolic Panel; Complete Time: 13:42 [facility] 11/07 14:01 Interpretation: Normal except: GLUC 236; GFR 83. 11/07 13:03 Order name: CBC Smear Scan; Complete Time: 13:42 [facility] 11/07 16:08 Order name: CT Abd/Pelvis - IV Contrast Only 11/07 16:08 Order name: Procalcitonin 11/07 16:08 Order name: Lactate 11/07 16:08 Order name: Blood Culture Adult (2) 11/07 16:30 Order name: COVID-19 : Document "Date of Symptom Onset" if Symptomatic. ap3 11/07 16:49 Order name: ABO/RH no charge [facility] 11/07 18:09 Order name: SARS-COV-2 RT PCR [facility] 11/07 11:48 Order name: Labs collected and sent; Complete Time: 12:53 11/07 11:48 Order name: Wound dressing: surgiseal and 4 by 4s; Complete Time: 14:29 11/07 12:59 Order name: Labs - recollect needed: recollect T\\T\\S on tall purple tube.; Complete Time: ss 14:29 11/07 14:06 Order name: Consult Surgery-Jonathan Monaco MD (GENERAL SURGERY); Complete Time: 18:45 cp 11/07 18:34 Order name: Wound Care; Complete Time: 18:34 ap3 11/07 18:34 Order name: Wound dressing; Complete Time: 18:34 ap3 Administered Medications: 11:52 Drug: fentaNYL (PF) 25 mcg {Note: pt awake, alert. .} Route: IVP; Site: left forearm; ap3 13:15 Follow up: Response: No adverse reaction; Pain is decreased ap3 12:36 Drug: NS 0.9% 500 ml Route: IV; Rate: bolus; Site: left forearm; ap3 18:38 Follow up: Response: No adverse reaction; IV Status: Completed infusion ap3 14:05 Drug: fentaNYL (PF) 25 mcg Route: IVP; Site: left forearm; ap3 16:14 Follow up: Response: No adverse reaction; Pain is decreased ap3 17:21 Drug: Cefepime 2 grams Route: IVPB; Rate: 200 ml/hr; Infused Over: 30 mins; Site: left ap3 forearm; 18:37 Follow up: IV Status: Completed infusion; IV Intake: 100ml ap3 18:37 Follow up: Response: No adverse reaction ap3 18:33 Drug: vancoMYCIN 1 grams Route: IVPB; Infused Over: 2 hrs; Site: right forearm; ap3 18:37 Drug: fentaNYL (PF) 25 mcg {Note: patient awake, alert. states pain is 8/10.} Route: ap3 IVP; Site: right forearm; Disposition: 19:03 Co-signature as Attending Physician, Fito Greenberg MD I agree with the assessment and rn plan of care. PA/YARD CALLER's history reviewed, patient interviewed, and examined. HPI: 45 year old with bleeding left groin fungating mass My personal exam of patient reveals: + left groin with large fungating mass, + edge clots, no active bleeding noted, no arterial bleeding I agree with assessment and care plan and confirm the diagnosis (es) above. Disposition Summary: 11/07/20 17:24 Hospitalization Ordered Hospitalization Status: Inpatient Admission cp Location: Telemetry/MedSurg (observation) cp Condition: Stable cp Problem: an ongoing problem cp Symptoms: have improved cp Bed/Room Type: Standard cp Provider: Lawrence Muniz(11/07/20 17:24) cp Room Assignment: [facility](11/07/20 19:28) cg Diagnosis - Infected Open Wound Left Groin cp Forms: - Medication Reconciliation Form cp - SBAR form cp Signatures: Dispatcher [employer] EDMS Fito Greenberg MD MD rn Smirch, Shelby, RN RN Beto Overton PA PA cp Aury Johnston RN RN cg Fay Baca RN RN ap3 Corrections: (The following items were deleted from the chart) 17:01 16:31 CORONAVIRUS ordered. EDMS EDMS 17:24 17:24 Arpan Castaneda cp cp 19:28 17:24 cp cg
--- NOTE | 2020-11-07 18:12 | P.HP ---
Certification for Inpatient Patient admitted to: Observation With expected LOS: <2 Midnights Practitioner: I am a practitioner with admitting privileges, knowledge of patient current condition, hospital course, and medical plan of care. Services: Services provided to patient in accordance with Admission requirements found in Title 42 Section 412.3 of the Code of Federal Regulations Patient History Date of Service: 11/07/20 Reason for admission: Bleeding from left groin mass History of Present Illness: 45-year-old morbidly obese gentleman diagnosed with diabetes about 4 months ago, currently on insulin present to the emergency department with a complaint of bleeding bleeding from her left groin fungating mass. Patient also reports significant pain. He stated he developed a mass in the left groin about 3 years ago and has rapidly growing to occupy his entire left groin. He stated he was hospitalized for surgery but has some issues with heart later could not do the s urgery because he had to sign out AMA in order to go to court for some family issues. Patient seen by Dr. Monaco in the ED will plans to biopsy the mass and dress it. Patient started on IV antibiotics and hospitalized for further management. - Past Medical/Surgical History -: Diabetes mellitus -: None - Social History Smoking Status: Current every day smoker Alcohol use: No CD- Drugs: No Place of Residence: Home Review of Systems Other: Patient denied any fever or chill. He denied any nausea or vomiting. Except as documented, all other systems reviewed and negative. Physical Examination - Physical Exam General: Alert, In no apparent distress, Oriented x3, Obese HEENT: Normocephalic, Mucous membr. moist/pink, EOMI, Sclerae nonicteric Neck: Supple, JVD not distended Respiratory: Clear to auscultation bilaterally, Normal air movement Cardiovascular: No edema, Regular rate/rhythm, Normal S1 S2, No murmurs Capillary refill: <2 Seconds Gastrointestinal: Normal bowel sounds, Soft and benign, Non-distended, No ascites Musculoskeletal: No swelling, No tenderness Integumentary: Other (Large fungating mass with a large wound in the middle, oozing out blood and malodorous discharge.) Neurological: Normal strength at 5/5 x4 extr, Cranial nerves 3-12 intact Lymphatics: Other (No axilla lymphadenopathy.) - Studies Laboratory Data (last 24 hrs) 11/07/20 12:51: PT 14.0 H, INR 1.21 11/07/20 12:51: WBC 15.30 H, Hgb 9.3 L, Hct 30.4 L, Plt Count 523 H 11/07/20 12:51: Sodium 137, Potassium 4.1, BUN 9, Creatinine 0.98, Glucose 236 H Assessment and Plan - Problems (Diagnosis) (1) Inguinal mass Current Visit: Yes Status: Acute (2) DM type 2 (diabetes mellitus, type 2) Current Visit: Yes Status: Acute - Plan Large fungating mass. I suspect skin cancer. Patient seen by Dr. Monaco who is planning biopsy, packing and dressing. Place under observation. Will start IV cefepime and IV Flagyl. Obtain echocardiogram given prior reports of heart issues. Obtain EKG. Pain management as needed. Aggressive insulin sliding scale for glucose management. Validate and continue home medications. Patient will need extensive resection of the mass with plastic surgery in a tertiary center. This can be done as an outpatient. - Advance Directives Does patient have a Living Will: No Does patient have a Durable POA for Healthcare: No
--- NOTE | 2020-11-07 18:23 | RAD REPORT ---
EXAM DESCRIPTION: CTAbdomen Pelvis W Contrast - 11/07/2020 6:03 pm CLINICAL HISTORY: Abdominal pain. open wound left groin COMPARISON: No comparisons TECHNIQUE: Biphasic CT imaging of the abdomen and pelvis was performed with 100 ml non-ionic IV cont rast. All CT scans are performed using dose optimization technique as appropriate and may include automated exposure control or mA/KV adjustment according to patient size. FINDINGS: The lung bases are clear. The liver, spleen, pancreas, adrenal glands and kidneys are within normal limits. No bowel obstruction, free air, free fluid or abscess. The appendix is normal. Large soft tissue ma ss in the left inguinal region with scattered areas of inguinal lymphadenopathy. The soft tissue mass which contacts the skin surface measures 9 centimeters x 9.2 centimeters. There are prominent draini ng veins. Small fat containing right inguinal hernia. Remote right-sided rib fractures enlarged right inguinal lymph node measures 14 millimeters. There is an enlarged left inguinal lymph node measuring 17 millimeters. IMPRESSION: Large superficial left inguinal mass with adjacent lymphadenopathy is suspicious for dulce plasm such as melanoma. This mass does not have the appearance of infection. No soft tissue gas. Bila teral inguinal lymphadenopathy is concerning for sugar spread of disease.
[2020-11-07] MEDS ORDERED: ACETAMINOPHEN 500 MG TAB PO PRN (20:55)
[2020-11-07] MEDS ORDERED: ONDANSETRON 4 MG/2 ML VIAL IV PRN (20:55)
[2020-11-07] MEDS ORDERED: CEFEPIME 1 GM/VIAL IV SCH (21:00)
[2020-11-07] MEDS: INSULIN -REGULAR HUMAN 50 UNIT/0.5 ML ML SQ SCH (21:00)
[2020-11-07 22:07] VITALS: BMI 58.7
[2020-11-07] MEDS: NA CHLORIDE 0.9% 1,000 ML IV SCH (22:32)
[2020-11-07] MEDS: MORPHINE 4 MG/ML SYR IV PRN (22:32)
[2020-11-08] MEDS: METRONIDAZOLE 500mg IVPB 500 MG/100 ML BAG IV SCH ×3 (00:40→17:58)
[2020-11-08 01:00] LABS: Urine Appearance CLEAR (Clear); Urine Bilirubin NEGATIVE (Negative); Urine Blood TRACE (Negative); Urine Color DK YELLOW (Yellow); Urine Glucose TRACE (Negative); Urine Protein TRACE (Negative); Urine Specific Gravity >=1.030 (1.005-1.030); Urine Urobilinogen 0.2 mg/dL (0.2-1.0)
[2020-11-08 02:00] LABS: Urine Microscopic Reflex ORDER UMIC
[2020-11-08] MEDS: MORPHINE 4 MG/ML SYR IV PRN ×4 (02:54→20:30)
[2020-11-08 03:16] LABS: Urine Bacteria 20-50 /HPF (NONE SEEN); Urine Mucus 3+ /HPF (NONE SEEN)
[2020-11-08 04:10] LABS: Absolute Lymphocytes (CBC) 3.1 K/uL (0.7-4.9); Basophils % 0.7 % (0-1.3); Hematocrit 28.4 % (39.6-49.0); Lymphocytes % 19.7 % (15.3-44.8); MPV 6.9 fL (7.6-11.3); RBC Red Blood Cell Count 3.99 M/uL (4.33-5.43)
[2020-11-08 04:34] LABS: BUN Blood Urea Nitrogen 10 mg/dL (7-18); Bicarbonate 30 mmol/L (21-32); Glucose Level 172 mg/dL (74-106); Magnesium 2.2 mg/dL (1.8-2.4); Phosphorus 4.1 mg/dL (2.5-4.9); Potassium 4.4 mmol/L (3.5-5.1); Sodium Level 138 mmol/L (136-145)
[2020-11-08 04:40] LABS: Protime INR 1.31
[2020-11-08] MEDS: INSULIN -REGULAR HUMAN 50 UNIT/0.5 ML ML SQ SCH ×4 (08:33→20:31)
[2020-11-08] MEDS: CEFEPIME/SWI 1gm 10 ML IV SCH ×2 (08:34→20:34)
[2020-11-08] MEDS: NA CHLORIDE 0.9% 1,000 ML IV SCH ×3 (10:18→15:27)
--- NOTE | 2020-11-08 12:38 | EKG ---
Test Date: 2020-11-08 Test Time: 08:34:36 Oil Analyst: FAITH MEASUREMENT RESULTS: Intervals: Rate: 97 DE: 166 QRSD: 78 QT: 328 QTc: 416 Sartell: P: 97 DE: 166 QRS: 88 T: 75 INTERPRETIVE STATEMENTS: Normal sinus rhythm Pulmonary disease pattern Abnormal ECG Compared to ECG 02/23/2018 20:09:50 Sinus tachycardia no longer present Electronically Signed On 11-08-20 12:37:14 CDT by Jose Rea
[2020-11-08] MEDS: BUPIVACAINE 0.25% PF 30 ML VIAL ONE ×2 (14:35→15:09)
[2020-11-08] MEDS: SODIUM HYPOCHLORITE 0.25% 473 ML ONE ×2 (14:36→15:13)
[2020-11-08] MEDS: HYDROMORPHONE HCL 2 MG/ML inj ONE ×4 (14:48→15:43)
[2020-11-08] MEDS ORDERED: MIDAZOLAM HCL 2 MG/2 ML INJ ONE (15:02)
[2020-11-08] MEDS ORDERED: propofoL 200 MG/20 ML VIAL IV ONE ×2 (15:02→15:27)
[2020-11-08] MEDS ORDERED: LIDOCAINE 1% MPF 5 ML VIAL ONE (15:03)
--- NOTE | 2020-11-08 15:22 | P.OP ---
Preoperative diagnosis: LEFT inguinal fungating mass Postoperative diagnosis: LEFT inguinal fungating mass Primary procedure: Open LEFT inguinal excisional biopsy of fungating mass Anesthesia: GETA + Local Estimated blood loss: <20cc Specimen: groin tissue Findings: consistent with HPV history, fungating mass Complications: None Transferred to: Recovery Room Condition: Good
--- NOTE | 2020-11-08 15:23 | CON ---
Date of Consultation: 11/07/2020 Brief Hpi: The patient is a 45-year-old morbidly obese gentleman who has a history of diabetes, COPD , and HPV, who had noted a left groin lesion before in the past, diagnosis an HPV wound. He treated this medically beginning approximately 3-1/2 years ago. Medications were successful in alleviating t he wound., however, approximately a year later, he developed a wound. However, he was incarcerated a t that point. The wound significantly increased in size. After his discharge, he did not have signi ficant followup with respect to treatment of this. He had not had any care regarding this and this c ontinued to enlarge. Now it encompasses the entire groin area. He comes in with bleeding to this ar ea and has not had a care for this area. Past Medical History: Significant for diabetes, COPD, coronary artery disease, HPV. Past Surgical History: He has had a right finger surgery and a lymph node removed from his neck. Social History: He admits to smoking cigarettes every day. Denies alcohol or recreational drug use. Review of Systems: Ten-point review of systems other than HPI, denies. Medications: None. Allergies: NO KNOWN DRUG ALLERGIES. Physical Examination: General: At the time of examination, he is awake, alert, oriented. Psychiatric: He is appropriate, conversive. HEENT: Normocephalic. His sclerae are anicteric. He has dysfunction of his left eye with a dysconj ugate appearance of the eye. He has some ptosis of his lid as well on the left and slight anisocoria . He states this has been long with longstanding however. Cardiovascular: Regular rhythm. Pulmonary: Clear to auscultation bilaterally. Abdomen: Soft, nontender. Pelvis: He has a large fungating mass of the left inguinal area, approximately 40 cm in length by ap proximately 30 cm in length, extending down into the deeper tissues with complete distortion of the a natomy. It is a large fungating mass with a central wound, necrotic tissue, oozing blood and malodor ous appearance. Vital Signs: Showed a blood pressure 143/60, heart rate was 89, respiratory rate 19, temperature 97. 8, SpO2 96% on room air. Laboratory Data: Reveals a white blood count 15.3, hemoglobin is 9.3, hematocrit 30.4, platelet coun t is 523, neutrophils are 10.9 on the absolute chart. PT 14.0, INR 1.2. Sodium 137, potassium is 4. 1, chloride 103, carbon dioxide 26, BUN 9, creatinine 0.9, glucose is 236. His lactic acid is 1.5. His urinalysis showed red blood cells, white blood cells, bacteria, mucus, and trace protein. His CO VID was negative. He had imaging performed additionally, which included a CT scan of the abdomen and pelvis which was officially read as a large superficial left inguinal mass with adjacent lymphadenop athy, suspicious for neoplasm such as melanoma. The mass does not have the appearance of infection. No soft tissue gas. Bilateral inguinal lymphadenopathy is concerning for sugar spread of disease. There are prominent draining veins, small fat containing right inguinal hernia, remote right-sided ri b fractures and large right inguinal lymph nodes measuring up to 14 mm. Large left lung lymph nodes measuring up to 17 mm. Assessment And Plan: This is a 45-year-old male with a fungating mass of the left groin, likely cons istent with a neoplastic process. 1.IV fluid hydration. 2.Local wound care with Dakin's, damp to dry and pressure dressings. 3.I will obtain a tissue biopsy of this for diagnostic purposes. I have a high degree of suspicion that this is a neoplastic process likely related to his HPV and as such tissue diagnosis will be requ ired prior to any other intervention. If this comes back as positive, we will refer him for workup i n Oncology as the patient likely has metastatic spread given the appearance of this lesion and the CT scan findings. I have explained the risks, benefits, and alternatives of the above stated plan. The patient agrees to proceed as indicated. JANNETH/CHENTE Voice ID: [id number] Report ID: [id number]
[2020-11-08] MEDS ORDERED: NA CHLORIDE 0.9% 1,000 ML ONE (15:52)
[2020-11-08] MEDS ORDERED: LIDOCAINE 1% W/EPI 1:100,000 MDV 20 ML VIAL ONE (15:52)
[2020-11-08] MEDS ORDERED: FLUCONAZOLE 400 MG IVPB 400 MG/200 ML BAG IV SCH (17:00)
[2020-11-08] MEDS: HYDROCODONE/APAP 10/325 TAB PO PRN (17:58)
--- NOTE | 2020-11-08 18:23 | OP ---
Date of Procedure: 11/08/2020 Surgeon: Jonathan Monaco MD, Preoperative Diagnosis: Left inguinal fungating mass. Postoperative Diagnosis: Left inguinal fungating mass. Procedures Performed: Open left inguinal excisional biopsy of fungating mass. Anesthesia: General endotracheal plus local with 0.25% Marcaine without epinephrine and 1% lidocaine with epinephrine. Estimated Blood Loss: Approximately 20 mL. Specimen: Groin tissue. Findings: Consistent with his history of HPV. This is a fungating mass consistent with a neoplastic process. Complications: None. Disposition: The patient was transferred to recovery room in good condition. Procedure In Detail: After informed consent was obtained, the patient was brought to the operating r oom, prepped and draped in usual sterile fashion after adequate anesthesia was achieved. The area of his left inguinal area was anesthetized with 0.25% Marcaine. Bleeding was evident at the insertion site, therefore I changed to 1% lidocaine with epinephrine at this point as we do not have 0.25% Art ashley with epinephrine and as such, I injected the area with 1% lidocaine with epinephrine. I then us ed scissors to cut a sharp piece of approximately 1 cm round tissue from a scheduling representative portion of the specimen. This mass is approximately 35 cm long and 20 cm wide when fully exposed. As such, the tissue was removed. There was some brisk bleeding from the area. I used electrocautery to achieve hemostasis with good control at this point. I then packed the wound with 0.25% Dakin solution, steri le Kerlix, damp to dry, and a sterile dressing placed over top along with a pressure dressing. The p atient tolerated the procedure well without evidence of complication and transferred to PACU in good condition. All counts were correct at the end of the case. TK/MODL Voice ID: [id number] Report ID: [id number]
[2020-11-08] MEDS ORDERED: D50W 25 GM/50 ML SYRINGE IV PRN (18:29)
[2020-11-08] MEDS ORDERED: GLUCAGON 1 MG/VIAL IM PRN (18:29)
--- NOTE | 2020-11-08 18:29 | P.PN ---
Subjective Date of Service: 11/08/20 Chief Complaint: Bleeding from left groin mass Status post biopsy and Cautery of bleeding lesions in the left groin fungating mass. Physical Examination - Vital Signs Temperature: 97.8 F Blood Pressure: 146/86 Pulse: 101 Respirations: 20 Pulse Ox (%): 95 - Physical Exam General: Alert, In no apparent distress, Oriented x3 Neck: JVD not distended Respiratory: Clear to auscultation bilaterally, Normal air movement Cardiovascular: No edema, Regular rate/rhythm, Normal S1 S2 Gastrointestinal: Normal bowel sounds, Soft and benign, Non-distended Musculoskeletal: No swelling Integumentary: Other (Large left groin fungating mass) Neurological: Normal strength at 5/5 x4 extr - Studies Laboratory Data (last 24 hrs) 11/08/20 03:34: Sodium 138, Potassium 4.4, BUN 10, Creatinine 0.84, Glucose 172 H, Phosphorus 4.1, Magnesium 2.2 11/08/20 03:34: PT 15.1 H, INR 1.31 11/08/20 03:34: WBC 15.50 H, Hgb 8.5 L, Hct 28.4 L, Plt Count 515 H Assessment And Plan - Current Problems (Diagnosis) (1) Inguinal mass Current Visit: Yes Status: Acute (2) DM type 2 (diabetes mellitus, type 2) Current Visit: Yes Status: Acute - Plan Large fungating mass. Status was biopsy. Wound packed. Continue IV cefepime and IV Flagyl. Diflucan added. Pain management as needed. Aggressive insulin sliding scale for glucose management. Add Lantus insulin. Validate and continue home medications. Patient will need extensive resection of the mass with plastic surgery in a tertiary center. This can be done as an outpatient.
[2020-11-08] MEDS ORDERED: INSULIN GLARGINE 100 UNITS/ML SQ SCH ×2 (21:00)
[2020-11-09] MEDS: MORPHINE 4 MG/ML SYR IV PRN ×3 (00:22→08:57)
[2020-11-09] MEDS: METRONIDAZOLE 500mg IVPB 500 MG/100 ML BAG IV SCH ×2 (00:23→08:15)
[2020-11-09] MEDS: HYDROCODONE/APAP 10/325 TAB PO PRN ×3 (01:56→11:33)
[2020-11-09] MEDS: NA CHLORIDE 0.9% 1,000 ML IV SCH (04:47)
[2020-11-09 06:41] VITALS: O2SAT 97
[2020-11-09] MEDS: CEFEPIME/SWI 1gm 10 ML IV SCH (08:14)
[2020-11-09] MEDS: INSULIN -REGULAR HUMAN 50 UNIT/0.5 ML ML SQ SCH ×2 (08:14→11:32)
[2020-11-09 12:12] VITALS: BP 123/58; TEMP 97.3
--- NOTE | 2020-11-09 16:31 | P.DS ---
Admission Date: 11/08/20 Discharge Date: 11/09/20 Disposition: DC HOME/HOME HEALTH CARE Discharge Condition: FAIR Reason for Admission: Bleeding from left groin mass - Problems (1) Inguinal mass Status: Acute (2) DM type 2 (diabetes mellitus, type 2) Status: Acute Brief History of Present Illness: 45-year-old morbidly obese gentleman diagnosed with diabetes about 4 months ago, currently on insulin present to the emergency department with a complaint of bleeding from her left groin fungating mass. Patient also reports significant pain. He stated he developed a mass in the left groin about 3 years ago and has rapidly growing to occupy his entire left groin. He stated he was hospitalized for surgery but has some issues with heart later could not do the surgery because he had to sign out AMA in order to go to court for some family issues. Patient seen by Dr. Monaco in the ED and planned for biopsy of the mass. Patient started on IV antibiotics and hospitalized for further management. Hospital Course: Patient admitted to the medical floor and started on IV cefepime and Flagyl. Patient seen by Dr. Monaco who took the patient to the OR, took biopsy and cauterized bleeding lesions. Wound was packed with Dakin's soaked Kerlix and dressed. Patient was monitored overnight with no issues. Pain was managed with IV morphine and Pettibone. Blood cultures no growth. Patient is discharged to follow with Dr. Monaco within 2 weeks regarding pathology result and possible referral to the tertiary center for resection. Patient discharged with home health for wound care. Vital Signs/Physical Exam: Temp Pulse Resp BP Pulse Ox 97.3 F 100 H 20 123/58 L 96 11/09/20 12:00 11/09/20 12:00 11/09/20 12:00 11/09/20 12:11/09/20 12:00 General: Alert, In no apparent distress, Oriented x3 HEENT: Mucous membr. moist/pink Neck: JVD not distended Respiratory: Clear to auscultation bilaterally, Normal air movement Cardiovascular: No edema, Regular rate/rhythm, Normal S1 S2 Gastrointestinal: Soft and benign, Non-distended Musculoskeletal: No swelling Neurological: Normal strength at 5/5 x4 extr Laboratory Data at Discharge: WBC 15.50 K/uL (4.3-10.9) H 11/08/20 03:34 Hgb 8.5 g/dL (13.6-17.9) L 11/08/20 03:34 Hct 28.4 % (39.6-49.0) L 11/08/20 03:34 Plt Count 515 K/uL (152-406) H 11/08/20 03:34 PT 15.1 SECONDS (9.5-12.5) H 11/08/20 03:34 INR 1.31 11/08/20 03:34 Sodium 138 mmol/L (136-145) 11/08/20 03:34 Potassium 4.4 mmol/L (3.5-5.1) 11/08/20 03:34 BUN 10 mg/dL (7-18) 11/08/20 03:34 Creatinine 0.84 mg/dL (0.55-1.3) 11/08/20 03:34 Glucose 172 mg/dL (74-106) H 11/08/20 03:34 Phosphorus 4.1 mg/dL (2.5-4.9) 11/08/20 03:34 Magnesium 2.2 mg/dL (1.8-2.4) 11/08/20 03:34 Home Medications: Ciprofloxacin HCl [Cipro 500 MG Tablet] 500 mg PO BID #14 tab 11/09/20 Gabapentin 300 mg PO TID #90 capsule 11/09/20 Glipizide [Glipizide ER] 5 mg PO DAILY #30 tab.er.24 11/09/20 Hydrocodone 10/APAP 325 [Pettibone 10/325*] 2 tab PO Q4H PRN #60 tab 11/09/20 Metformin HCl 500 mg PO BID #60 tablet 11/09/20 Sodium Hypochlorite [Dakin's] 473 ml MC DAILY #1 bottle 11/09/20 metroNIDAZOLE [Flagyl] 500 mg PO Q8H #21 tablet 11/09/20 New Medications: Ciprofloxacin HCl [Cipro 500 MG Tablet] 500 mg PO BID #14 tab Sodium Hypochlorite [Dakin's] 473 ml MC DAILY #1 bottle metroNIDAZOLE [Flagyl] 500 mg PO Q8H #21 tablet Gabapentin 300 mg PO TID #90 capsule Glipizide [Glipizide ER] 5 mg PO DAILY #30 tab.er.24 Metformin HCl 500 mg PO BID #60 tablet Hydrocodone 10/APAP 325 [Pettibone 10/325*] 2 tab PO Q4H PRN #60 tab PRN Reason: Pain Scale 5-7 (Moderate) Physician Discharge Instructions: Wound dressing:Clean wound with 0.25% Dakin's solution, packed the wound with 0.25% Dakin soaked sterile Kerlix, apply wet to damp to dry, and a sterile dressing. Do this daily. Diet: ADA Activity: Ad corey Followup: Jonathan Monaco MD [ACTIVE - CAN ADMIT] - (Within 2 weeks. Call to schedule appointment) NONE,NONE [Primary Care Provider] - Time spent managing pt's care (in minutes): 40
== END 2020-11-09 14:01 | disposition home health service (06) | DRG 392 ==
LOC: ER 11:35 → ERHOLD 18:00 → 2ND 19:51 → OBSVTOIN 11-08 12:13
PROVIDERS: ADMIT Internal Medicine; ATTEND Internal Medicine
PROC: 2W4 Placement, Anatomical Regions, Packing (ICD-10-PCS; 2020-11-08)
PROC: 0JBC0ZX Excision of Pelvic Region Subcutaneous Tissue and Fascia, Open Approach, Diagnostic (ICD-10-PCS; principal; 2020-11-08 12:45)
DX: R19.09 Other intra-abdominal and pelvic swelling, mass and lump (principal); Z68.43 Body mass index [BMI] 50.0-59.9, adult; E66.01 Morbid (severe) obesity due to excess calories; F17.210 Nicotine dependence, cigarettes, uncomplicated; E11.9 Type 2 diabetes mellitus without complications; J44.9 Chronic obstructive pulmonary disease, unspecified; I25.10 Atherosclerotic heart disease of native coronary artery without angina pectoris; Z79.899 Other long term (current) drug therapy; Z79.4 Long term (current) use of insulin; Z20.822 Contact with and (suspected) exposure to COVID-19
CPT/HCPCS: 36415; 74177; 80048; 81003; 81015; 82947; 83605; 83735; 84100; 84145; 85025; 85610; 86850; 86900; 86901; 87040; 87086; 87088; 88305; 93005; 99285; G0378; J0692; J1170; J1450; J1815; J2250; J2704; J3010; J3370; J7030; Q9967; U0003

== ENCOUNTER 2020-11-27 20:57 | Emergency (ER) | payer OTHER ==
--- OUTSIDE RECORDS SUMMARY | 2020-11-27 21:02 | XMS REPORT | Continuity of Care Document ---
:1975 Author Organization [facility] t Address [address] [place] [address] Care Team Providers Name Role Phone DR [...] Drug 5-04 Clear Allergie 00:00: Green s [facility] No Known DA Active U 2000- [facility] Food 4-20 Clear Allergie 00:00: Green s [address] [place] [address] NO KNOWN DA Active U 2000-0 [facility] CONTRAST 4-20 Clear MEDIA 00:00: Green ALLERG [address] [place] [address] NO KNOWN DA Active U 2000-0 [facility] OTHER 4-20 Clear ALLERGIE 00:00: Green S [facility] No Known DA Active U 2000-0 [facility] Drug 4-20 Clear Allergie 00:00: Green s [address] [place] [address] Medications This patient has no known medications. Procedures This patient has no known procedures. Encounters Start End Encounter Admission Attending Care Care Encounter Source Date/Time Date/Time Type Type Clinicians Facility Department ID 2019-07-15 2019-07-15 Emergency E ZHANE AMEZCUA [facility] [id number] 12:28:00 13:10:00 [facility] Results Test Description Test Time Test Comments Results Result Comments Source GLUBED 2020-10-12 12:17:00 Test Item Value Reference Range Interpretation Comme nts GLUBED (test code = GLUBED) 215 mg/dL 74-106 H Performed by certified dice table operator at [facility] [id number] 12:17:00 Test Item Value Reference Range Interpretation Comments GLUBED (test code = 213 mg/dL 74-106 H Performe d by certified GLUBED) dice table operator at [facility] [id number] 12:16:00 Test Item Value Reference Range Interpretation Comments GLUBED (test code = 156 mg/dL 74-106 H Performe d by certified GLUBED) dice table operator at [facility] [id number] 12:15:00 Test Item Value Reference Range Interpretation Comments GLUBED (test code = 183 mg/dL 74-106 H Performe d by certified GLUBED) dice table operator at [facility] [id number] 12:15:00 Test Item Value Reference Range Interpretation Comments GLUBED (test code 190 mg/dL 74-106 H Performed by certified = GLUBED) [facility] [id number] 12:14:00 Test Item Value Reference Range Interpretation Comments GLUBED (test code 212 mg/dL 74-106 H Performed by certified = GLUBED) [facility] [id number] 12:14:00 Test Item Value Reference Range Interpretation Comments GLUBED (test code = 263 mg/dL 74-106 H Performe d by certified GLUBED) dice table operator at [facility] [id number] 16:11:00 Test Item Value Reference Range Interpretation Comments GLUBED (test code = 189 mg/dL 74-106 H Performe d by certified GLUBED) dice table operator at [facility] [id number] 10:41:00 Test Item Value Reference Range Interpretation Comments GLUBED (test code = 182 mg/dL 74-106 H Performe d by certified GLUBED) dice table operator at [facility] [id number] 20:48:00 Test Item Value Reference Range Interpretation Comments GLUBED (test code = 198 mg/dL 74-106 H Performe d by certified GLUBED) dice table operator at [facility] [id number] 16:01:00 Test Item Value Reference Range Interpretation Comments GLUBED (test code = 177 mg/dL 74-106 H Performe d by certified GLUBED) dice table operator at [facility] [id number] 11:42:00 Test Item Value Reference Range Interpretation Comments GLUBED (test code = 174 mg/dL 74-106 H Performe d by certified GLUBED) dice table operator at [facility] CBC W/AUTO [id number] 06:22:00 Test Item Value Reference Range Interpretation [...] SCAN NEEDED (test code = MDIFF) DIFFERENTIAL [id number] 06:22:00 Test Item Value Reference Range Interpretation Comments STAIN ACCEPTABILITY (test STAIN ACCEPTABLE code = STN ACCEPTABLE) MORPHOLOGY COMMENT (test NORMAL code = MOC) PLATELET ESTIMATE (test code ADEQUATE = PLTEST) PLATELET MORPHOLOGY (test NORMAL code = PLTMORPH) BASIC METABOLIC [id number] 05:33:00 Test Item Value Reference Range Interpretation [...] >3 months. [Automated mess age] The system Answer.To generated this result transmitted ref erence range: >=60. Th e reference range was not used to int erpret this result as normal/abnormal . CREATININE (test code 0.90 mg/dL 0.7-1.3 N = CREAT) BUN/CREATININE RATIO 11.6 10-20 N (test code = BUN/CREA) CALCIUM (test code = 8.5 mg/dL 8.5-10.1 N CA) CBC W/AUTO [id number] 05:01:00 Test Item Value Reference Range Interpretation [...] SCAN NEEDED (test code = MDIFF) DIFFERENTIAL [id number] 05:01:00 Test Item Value Reference Range Interpretation Comments STAIN ACCEPTABILITY (test code = STN ACCEPTABLE) CABOT RINGS (test code = CAB) MORPHOLOGY COMMENT (test code = MOC) PLATELET ESTIMATE (test code = PLTEST) PLATELET MORPHOLOGY (test code = PLTMORPH) CBC W/AUTO [id number] 05:01:00 Test Item Value Reference Range Interpretation [...] SCAN NEEDED (test code = MDIFF) DIFFERENTIAL [id number] 05:01:00 Test Item Value Reference Range Interpretation Comments STAIN ACCEPTABILITY (test code = STN ACCEPTABLE) CABOT RINGS (test code = CAB) MORPHOLOGY COMMENT (test code = MOC) PLATELET ESTIMATE (test code = PLTEST) PLATELET MORPHOLOGY (test code = PLTMORPH) CBC W/AUTO [id number] 05:01:00 Test Item Value Reference Range Interpretation [...] SCAN NEEDED (test code = MDIFF) DIFFERENTIAL [id number] 05:01:00 Test Item Value Reference Range Interpretation Comments STAIN ACCEPTABILITY (test code = STN ACCEPTABLE) MORPHOLOGY COMMENT (test code = MOC) PLATELET ESTIMATE (test code = PLTEST) PLATELET MORPHOLOGY (test code = PLTMORPH) CBC W/AUTO [id number] 05:01:00 Test Item Value Reference Range Interpretation [...] SCAN NEEDED (test code = MDIFF) DIFFERENTIAL [id number] 05:01:00 Test Item Value Reference Range Interpretation Comments STAIN ACCEPTABILITY (test code = STN ACCEPTABLE) CABOT RINGS (test code = CAB) MORPHOLOGY COMMENT (test code = MOC) PLATELET ESTIMATE (test code = PLTEST) PLATELET MORPHOLOGY (test code = PLTMORPH) [id number] 21:00:00 Test Item Value Reference Range Interpretation Comments GLUBED (test code = 211 mg/dL 74-106 H Performe d by certified GLUBED) dice table operator at [facility] [id number] 16:29:00 Test Item Value Reference Range Interpretation Comments GLUBED (test code = 158 mg/dL 74-106 H Performe d by certified GLUBED) dice table operator at [facility] [id number] 11:57:00 Test Item Value Reference Range Interpretation Comments GLUBED (test code = 101 mg/dL 74-106 N Performe d by certified GLUBED) dice table operator at [facility] CBC W/AUTO [id number] 09:46:00 Test Item Value Reference Range Interpretation [...] SCAN NEEDED (test code = MDIFF) DIFFERENTIAL [id number] 09:46:00 Test Item Value Reference Range Interpretation Comments STAIN ACCEPTABILITY (test STAIN ACCEPTABLE code = STN ACCEPTABLE) MORPHOLOGY COMMENT (test NORMAL code = MOC) PLATELET ESTIMATE (test code ADEQUATE = PLTEST) PLATELET MORPHOLOGY (test NORMAL code = PLTMORPH) [id number] 08:20:00 Test Item Value Reference Range Interpretation Comments GLUBED (test code = 257 mg/dL 74-106 H Performe d by certified GLUBED) dice table operator at [facility] BASIC METABOLIC [id number] 07:03:00 Test Item Value Reference Range Interpretation [...] >3 months. [Automated mess age] The system Answer.To generated this result transmitted ref erence range: >=60. Th e reference range was not used to int erpret this result as normal/abnormal . CREATININE (test code 0.90 mg/dL 0.7-1.3 N = CREAT) BUN/CREATININE RATIO 11.7 10-20 N (test code = BUN/CREA) CALCIUM (test code = 8.6 mg/dL 8.5-10.1 N CA) CBC W/AUTO [id number] 05:51:00 Test Item Value Reference Range Interpretation [...] SCAN NEEDED (test code = MDIFF) DIFFERENTIAL [id number] 05:51:00 Test Item Value Reference Range Interpretation Comments STAIN ACCEPTABILITY (test code = STN ACCEPTABLE) CABOT RINGS (test code = CAB) MORPHOLOGY COMMENT (test code = MOC) PLATELET ESTIMATE (test code = PLTEST) PLATELET MORPHOLOGY (test code = PLTMORPH) CBC W/AUTO [id number] 05:51:00 Test Item Value Reference Range Interpretation [...] SCAN NEEDED (test code = MDIFF) DIFFERENTIAL [id number] 05:51:00 Test Item Value Reference Range Interpretation Comments STAIN ACCEPTABILITY (test code = STN ACCEPTABLE) CABOT RINGS (test code = CAB) MORPHOLOGY COMMENT (test code = MOC) PLATELET ESTIMATE (test code = PLTEST) PLATELET MORPHOLOGY (test code = PLTMORPH) CBC W/AUTO [id number] 05:51:00 Test Item Value Reference Range Interpretation [...] SCAN NEEDED (test code = MDIFF) DIFFERENTIAL [id number] 05:51:00 Test Item Value Reference Range Interpretation Comments STAIN ACCEPTABILITY (test code = STN ACCEPTABLE) MORPHOLOGY COMMENT (test code = MOC) PLATELET ESTIMATE (test code = PLTEST) PLATELET MORPHOLOGY (test code = PLTMORPH) CBC W/AUTO [id number] 05:51:00 Test Item Value Reference Range Interpretation [...] SCAN NEEDED (test code = MDIFF) DIFFERENTIAL [id number] 05:51:00 Test Item Value Reference Range Interpretation Comments STAIN ACCEPTABILITY (test code = STN ACCEPTABLE) CABOT RINGS (test code = CAB) MORPHOLOGY COMMENT (test code = MOC) PLATELET ESTIMATE (test code = PLTEST) PLATELET MORPHOLOGY (test code = PLTMORPH) [id number] 16:50:00 Test Item Value Reference Range Interpretation Comments GLUBED (test code 215 mg/dL 74-106 H Performed by certified = GLUBED[facility] [id number] 12:01:00 Test Item Value Reference Range Interpretation Comments GLUBED (test code 187 mg/dL 74-106 H Performed by certified = GLUBED) [facility] [id number] 20:23:00 Test Item Value Reference Range Interpretation Comments GLUBED (test code = 232 mg/dL 74-106 H Performe d by certified GLUBED) dice table operator at [facility] [id number] 16:36:00 Test Item Value Reference Range Interpretation Comments GLUBED (test code = 180 mg/dL 74-106 H Performe d by certified GLUBED) dice table operator at [facility] [id number] 12:14:00 Test Item Value Reference Range Interpretation Comments GLUBED (test code = 221 mg/dL 74-106 H Performe d by certified GLUBED) dice table operator at [facility] [id number] 08:41:00 Test Item Value Reference Range Interpretation Comments GLUBED (test code = 228 mg/dL 74-106 H Performe d by certified GLUBED) dice table operator at [facility] CBC W/AUTO [id number] 06:22:00 Test Item Value Reference Range Interpretation [...] SCAN NEEDED (test code = MDIFF) DIFFERENTIAL [id number] 06:22:00 Test Item Value Reference Range Interpretation Comments STAIN ACCEPTABILITY (test STAIN ACCEPTABLE code = STN ACCEPTABLE) POLYCHROMASIA (test code = 1+ POLC) PLATELET ESTIMATE (test code ADEQUATE = PLTEST) PLATELET MORPHOLOGY (test NORMAL code = PLTMORPH) BASIC METABOLIC [id number] 05:57:00 Test Item Value Reference Range Interpretation [...] >3 months. [Automated mess age] The system Answer.To generated this result transmitted ref erence range: >=60. Th e reference range was not used to int erpret this result as normal/abnormal . CREATININE (test code 0.80 mg/dL 0.7-1.3 N = CREAT) BUN/CREATININE RATIO 11.9 10-20 N (test code = BUN/CREA) CALCIUM (test code = 8.3 mg/dL 8.5-10.1 L CA) CBC W/AUTO [id number] 05:37:00 Test Item Value Reference Range Interpretation [...] SCAN NEEDED (test code = MDIFF) DIFFERENTIAL [id number] 05:37:00 Test Item Value Reference Range Interpretation Comments STAIN ACCEPTABILITY (test code = STN ACCEPTABLE) CABOT RINGS (test code = CAB) MORPHOLOGY COMMENT (test code = MOC) PLATELET ESTIMATE (test code = PLTEST) PLATELET MORPHOLOGY (test code = PLTMORPH) CBC W/AUTO [id number] 05:37:00 Test Item Value Reference Range Interpretation [...] SCAN NEEDED (test code = MDIFF) DIFFERENTIAL [id number] 05:37:00 Test Item Value Reference Range Interpretation Comments STAIN ACCEPTABILITY (test code = STN ACCEPTABLE) CABOT RINGS (test code = CAB) MORPHOLOGY COMMENT (test code = MOC) PLATELET ESTIMATE (test code = PLTEST) PLATELET MORPHOLOGY (test code = PLTMORPH) CBC W/AUTO [id number] 05:37:00 Test Item Value Reference Range Interpretation [...] SCAN NEEDED (test code = MDIFF) DIFFERENTIAL [id number] 05:37:00 Test Item Value Reference Range Interpretation Comments STAIN ACCEPTABILITY (test code = STN ACCEPTABLE) MORPHOLOGY COMMENT (test code = MOC) PLATELET ESTIMATE (test code = PLTEST) PLATELET MORPHOLOGY (test code = PLTMORPH) CBC W/AUTO [id number] 05:37:00 Test Item Value Reference Range Interpretation [...] SCAN NEEDED (test code = MDIFF) DIFFERENTIAL [id number] 05:37:00 Test Item Value Reference Range Interpretation Comments STAIN ACCEPTABILITY (test code = STN ACCEPTABLE) CABOT RINGS (test code = CAB) MORPHOLOGY COMMENT (test code = MOC) PLATELET ESTIMATE (test code = PLTEST) PLATELET MORPHOLOGY (test code = PLTMORPH) [id number] 16:06:00 Test Item Value Reference Range Interpretation Comments GLUBED (test code 237 mg/dL 74-106 H Performed by certified = GLUBED) [facility] [id number] 12:35:00 Test Item Value Reference Range Interpretation Comments GLUBED (test code 271 mg/dL 74-106 H Performed by certified = GLUBED) [facility] [id number] 08:08:00 Test Item Value Reference Range Interpretation Comments GLUBED (test code 233 mg/dL 74-106 H Performed by certified = GLUBED) [facility] CBC W/AUTO [id number] 07:56:00 Test Item Value Reference Range Interpretation [...] SCAN NEEDED (test code = MDIFF) DIFFERENTIAL [id number] 07:56:00 Test Item Value Reference Range Interpretation Comments STAIN ACCEPTABILITY (test STAIN ACCEPTABLE code = STN ACCEPTABLE) MORPHOLOGY COMMENT (test NORMAL code = MOC) PLATELET ESTIMATE (test code ADEQUATE = PLTEST) PLATELET MORPHOLOGY (test NORMAL code = PLTMORPH) COMPREHENSIVE METABOLIC [id number] 05:54:00 Test Item Value Reference Range Interpretation [...] >3 months. [Automated mess age] The system Answer.To generated this result transmitted ref erence range: [...] ALKP) to change in reagent. CBC W/AUTO [id number] 05:12:00 Test Item Value Reference Range Interpretation [...] SCAN NEEDED (test code = MDIFF) DIFFERENTIAL [id number] 05:12:00 Test Item Value Reference Range Interpretation Comments STAIN ACCEPTABILITY (test code = STN ACCEPTABLE) MORPHOLOGY COMMENT (test code = MOC) PLATELET ESTIMATE (test code = PLTEST) PLATELET MORPHOLOGY (test code = PLTMORPH) CBC W/AUTO [id number] 05:12:00 Test Item Value Reference Range Interpretation [...] SCAN NEEDED (test code = MDIFF) DIFFERENTIAL [id number] 05:12:00 Test Item Value Reference Range Interpretation Comments STAIN ACCEPTABILITY (test code = STN ACCEPTABLE) CABOT RINGS (test code = CAB) MORPHOLOGY COMMENT (test code = MOC) PLATELET ESTIMATE (test code = PLTEST) PLATELET MORPHOLOGY (test code = PLTMORPH) CBC W/AUTO [id number] 05:11:00 Test Item Value Reference Range Interpretation [...] SCAN NEEDED (test code = MDIFF) DIFFERENTIAL [id number] 05:11:00 Test Item Value Reference Range Interpretation Comments STAIN ACCEPTABILITY (test code = STN ACCEPTABLE) CABOT RINGS (test code = CAB) MORPHOLOGY COMMENT (test code = MOC) PLATELET ESTIMATE (test code = PLTEST) PLATELET MORPHOLOGY (test code = PLTMORPH) CBC W/AUTO [id number] 05:11:00 Test Item Value Reference Range Interpretation [...] SCAN NEEDED (test code = MDIFF) DIFFERENTIAL [id number] 05:11:00 Test Item Value Reference Range Interpretation Comments STAIN ACCEPTABILITY (test code = STN ACCEPTABLE) CABOT RINGS (test code = CAB) MORPHOLOGY COMMENT (test code = MOC) PLATELET ESTIMATE (test code = PLTEST) PLATELET MORPHOLOGY (test code = PLTMORPH) [id number] 20:37:00 Test Item Value Reference Range Interpretation Comments GLUBED (test code = 297 mg/dL 74-106 H Performe d by certified GLUBED) dice table operator at [facility] URINALYSIS [id number] 17:21:00 Test Item Value Reference Range Interpretation [...] (test code = AMORU) Urine Source? Clean [id number] 16:41:00 Test Item Value Reference Range Interpretation Comments GLUBED (test code = 234 mg/dL 74-106 H Performe d by certified GLUBED) dice table operator at [facility] COMPREHENSIVE METABOLIC [id number] 12:38:00 Test Item Value Reference Range Interpretation [...] >3 months. [Automated mess age] The system Answer.To generated this result transmitted ref erence range: [...] range due ALKP) to change in reagent. [id number] 11:38:00 Test Item Value Reference Range Interpretation Comments GLUBED (test code = 237 mg/dL 74-106 H Performe d by certified GLUBED) dice table operator at [facility] LIPID PROFILE (CORONARY RISK)2020-08-30 09:41:00 Test Item [...] is a direct measurement.=== ====== THYROID STIMULATING [id number] 09:41:00 Test Item Value Reference Range Interpretation Comments THYROID STIMULATING 2.255 uIU/mL 0.36-3.74 N TSH REFE RENCE HORMONE (test code = RANGES: EUTHYROID: TSH) 0.35 - 4.3 mIU/mL HYPO : > 5.5 mIU/mL HYPER : < 0.35 mIU/mL CBC W/AUTO [id number] 09:11:00 Test Item Value Reference Range Interpretation [...] SCAN NEEDED (test code = MDIFF) DIFFERENTIAL [id number] 09:11:00 Test Item Value Reference Range Interpretation Comments STAIN ACCEPTABILITY (test STAIN ACCEPTABLE code = STN ACCEPTABLE) POLYCHROMASIA (test code = 1+ POLC) HYPOCHROMIA (test code = 1+ HYPO) ANISOCYTOSIS (test code = 1+ ANISO) MICROCYTOSIS (test code = 1+ MICR) PLATELET ESTIMATE (test code ADEQUATE = PLTEST) PLATELET MORPHOLOGY (test NORMAL code = PLTMORPH) [id number] 08:40:00 Test Item Value Reference Range Interpretation Comments GLYCOSYLATED HEMOGLOBIN 11.0 % HbA1 WILLA MATOS (HA1C) (test code = DIAGNOSI S: HbA1C GLYHGB) (%) ---- ------ Diab etic >6.4Prediabetes 5.7 - 6.4Normal <5.7 ESTIMATED AVERAGE 269 MG/DL GLUCOSE (test code = EAG) CBC W/AUTO [id number] 08:23:00 Test Item Value Reference Range Interpretation [...] SCAN NEEDED (test code = MDIFF) DIFFERENTIAL [id number] 08:23:00 Test Item Value Reference Range Interpretation Comments STAIN ACCEPTABILITY (test code = STN ACCEPTABLE) CABOT RINGS (test code = CAB) MORPHOLOGY COMMENT (test code = MOC) PLATELET ESTIMATE (test code = PLTEST) PLATELET MORPHOLOGY (test code = PLTMORPH) CBC W/AUTO [id number] 08:23:00 Test Item Value Reference Range Interpretation [...] SCAN NEEDED (test code = MDIFF) DIFFERENTIAL [id number] 08:23:00 Test Item Value Reference Range Interpretation Comments STAIN ACCEPTABILITY (test code = STN ACCEPTABLE) MORPHOLOGY COMMENT (test code = MOC) PLATELET ESTIMATE (test code = PLTEST) PLATELET MORPHOLOGY (test code = PLTMORPH) CBC W/AUTO [id number] 08:22:00 Test Item Value Reference Range Interpretation [...] SCAN NEEDED (test code = MDIFF) DIFFERENTIAL [id number] 08:22:00 Test Item Value Reference Range Interpretation Comments STAIN ACCEPTABILITY (test code = STN ACCEPTABLE) CABOT RINGS (test code = CAB) MORPHOLOGY COMMENT (test code = MOC) PLATELET ESTIMATE (test code = PLTEST) PLATELET MORPHOLOGY (test code = PLTMORPH) CBC W/AUTO [id number] 08:22:00 Test Item Value Reference Range Interpretation [...] SCAN NEEDED (test code = MDIFF) DIFFERENTIAL [id number] 08:22:00 Test Item Value Reference Range Interpretation Comments STAIN ACCEPTABILITY (test code = STN ACCEPTABLE) CABOT RINGS (test code = CAB) MORPHOLOGY COMMENT (test code = MOC) PLATELET ESTIMATE (test code = PLTEST) PLATELET MORPHOLOGY (test code = PLTMORPH) - CT ABD PELVIS [id number] 20:38:00 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 CC: Ban Arnold NP Technologist:HEATHER [place], RT(R) CT CTDI: DLP: Trnscb Date/Time: 08/29/2020 (2037) t.GRW Orig Print D/T: S: 08/29/2020 (2040) PAGE 1 Signed Report- XR CHEST 1 V 2020-08-29 20:14:00 [facility])Name: RAN EVERETT : 1975 Sex: M FAX: Ban Arnold NP [place]: B St: REG Name: RAN EVERETT [facility] : 1975 Age/S: 44/M Kaden Freedman [facility] Unit #: [id number] Loc: [place] [address] Phys: Ban Arnold NP Acct: [id number] Dis Date: Status: REG ER PHONE #: [phone] Exam Date: 08/29/20201918 FAX #: [phone] Reason: CODE SEPSIS EXAMS: CPT CODE: [id number] XR CHEST 1 V 51412 EXAM: Chest X- ray, 1 view; CLINICAL HISTORY: Code sepsis; FINDINGS: The lungs are clear, no infiltrates, no edema; no effusions; no pneumothorax; normal cardiomediastinal silhouette. Old, consolidated fractures of the 6th and 7th ribs on the right. IMPRESSION: No evidence of active cardiopulmonary disease. Location code: at 2013 Reported and signed by: Pillo Basilio M.D. CC: Ban Arnold NP Technologist: Heather CLAROS(John) Trnscrd Date/Time/By: 08/29/2020 (2013) : By: SabihaGRW Orig Print D/T: S: 08/29/2020 (2017) PAGE 1 Signed ReportCOVID 19 INHOUSE [id number] 20:02:00 Test Item Value Reference Range Interpretation Comments COVID 19 INHOUSE AG (test code = NEGATIVE NEGATIVE [id number]) BASIC METABOLIC [id number] 19:53:00 Test Item Value Reference Range Interpretation [...] Modifi ed MDRD (test code = GFR) formula.Ch ronic kidney disease is defined as eith er kidney damageor GFR <60 mL/min/1.73 m2 for >3 months. [Automated mess age] The system Answer.To generated this result transmitted ref erence range: >=60. Th e reference range was not used to int erpret this result as normal/abnormal . CREATININE (test 1.00 mg/dL 0.7-1.3 N code = CREAT) BUN/CREATININE RATIO 11.6 10-20 N (test code = BUN/CREA) CALCIUM (test code = 8.5 mg/dL 8.5-10.1 N CA) HEPATIC FUNCTION [id number] 19:53:00 Test Item Value Reference Range Interpretation [...] range due ALKP) to change in reagent. [id number] 19:53:00 Test Item Value Reference Range Interpretation Comments TROPONIN-I (test code = TROPI) < 0.006 ng/mL 0-0.045 N B-TYPE NATRIURETIC [id number] 19:52:00 Test Item Value Reference Range Interpretation Comments B-TYPE NATRIURETIC PEPTIDE 20.0 pgram/mL 0-100 N (test code = BNP) LACTIC [id number] 19:33:00 Test Item Value Reference Range Interpretation Comments LACTIC ACID (test code = LACT) 1.3 mmol/L 0.4-1.9 N CBC W/AUTO [id number] 19:15:00 Test Item Value Reference Range Interpretation [...] code = 0.00 K/mm3 0.0-0.1 N NRBC#) [place] [id number] 07:04:53 Test Item Value Reference Range Interpretation Comments [place] Level (test code = 0.52 mmol/L 0.60-1.20 L [place] Level) [place] [id number] 06:31:16 Test Item Value Reference Range Interpretation Comments [place] Level (test code = 0.39 mmol/L 0.60-1.20 L [place] Level) RPR [id number] 03:58:40 Test Item Value Reference Range Interpretation [...] = 08/26/2019 N Expiration Dt) Thyroid Stimulating [id number] 02:50:00 Test Item Value Reference Range Interpretation Comments TSH (test code = TSH) 1.590 mIU/mL 0.270-4.200 Lipid [id number] 02:33:22 Test Item Value Reference Range Interpretation Comments Cholesterol Total 197 mg/dL 0-200 RISK OF HE ART (test code = DISEASEPublishe d by Cholesterol Total) [employer] Lashawn lyte Optimal Borderl ine [...] LDL/HDL Ratio=L DL Calc/HDL Chol Comprehensive Metabolic [id number] 18:09:30 Test Item Value Reference Range Interpretation [...] A/G 1.6 ratio N Ratio) Comprehensive Metabolic [id number] 18:09:30 Test Item Value Reference Range Interpretation [...] National Kidney Foundation, http://nkdep.ni h.gov Comprehensive Metabolic [id number] 18:09:30 Test Item Value Reference Range Interpretation [...] ag e have not been validated by [facility] MDRD study and should be interpreted wit [...] ag e have not been validated by [facility] MDRD study and should be interpreted wit h caution. eGFR R esult Interpretation: eGFR > or = 60 is in the Normal RangeeGF R < 60 may mean kid wong diseaseeGFR < 1 5 may mean kidney failure Rang es recommended by the National Kidney Foundation, http://nkdep.ni h.gov Complete Blood Count with [id number] 17:49:02 Test Item Value Reference Range Interpretation [...] code = IPF) 0 % N Automated [id number] 17:49:02 Test Item Value Reference Range Interpretation Comments Neutro Auto (test code = Neutro 60.9 % 36.0-70.0 Auto) Lymph Auto (test code = Lymph Auto) 28.2 % 12.0-44.0 Gratiot Auto (test code = Gratiot Auto) 8.0 % 0.0-11.0 Eos, Auto (test code = Eos, Auto) 1.7 % 0.0-7.0 Basophil Auto (test code = Basophil 0.7 % 0.0-2.0 Auto) Neutro Absolute (test code = Neutro 8.0 x10 1.6-7.4 H Absolute) Lymph Absolute (test code = Lymph 3.71 x10 .50-4.60 Absolute) Gratiot Absolute (test code = Gratiot 1.06 x10 .00-1.20 Absolute) Eos Absolute (test code = Eos 0.23 x10 0.00-0.74 Absolute) Baso Absolute (test code = Baso 0.09 x10 0.00-0.21 Absolute) IG [id number] 17:49:02 Test Item Value Reference Range Interpretation Comments IG (test code = IG) 0.5 % 0.0-5.0 IG Abs (test code = IG Abs) 0 x10 N Comprehensive Metabolic [id number] 13:30:37 Test Item Value Reference Range Interpretation [...] ratio N = A/G Ratio) Comprehensive Metabolic [id number] 13:30:37 Test Item Value Reference Range Interpretation [...] the National Kidney Foundation, http://nkdep.ni h.gov Alcohol [id number] 13:30:37 Test Item Value Reference Range Interpretation Comments Ethanol Level (test <0.00 g/dL 0.00-0.01 Intoxica annita 0.080 g/dL code = Ethanol or more Level) Ethanol Inst (test <0 N code = Ethanol Inst) Comprehensive Metabolic [id number] 13:30:37 Test Item Value Reference Range Interpretation [...] ag e have not been validated by [facility] MDRD study and should be interpreted wit [...] ag e have not been validated by [facility] MDRD study and should be interpreted wit h caution. eGFR R esult Interpretation: eGFR > or = 60 is in the Normal RangeeGF R < 60 may mean kid wong diseaseeGFR < 1 5 may mean kidney failure Rang es recommended by the National Kidney Foundation, http://nkdep.ni h.gov Drugs of Abuse Urine [id number] 13:26:52 Test Item Value Reference Range Interpretation [...] Cannabinoid Screen Ur) Complete Blood Count with [id number] 13:17:47 Test Item Value Reference Range Interpretation [...] code = IPF) 0 % N Automated [id number] 13:17:47 Test Item Value Reference Range Interpretation Comments Neutro Auto (test code = Neutro 67.8 % 36.0-70.0 Auto) Lymph Auto (test code = Lymph Auto) 22.2 % 12.0-44.0 Gratiot Auto (test code = Gratiot Auto) 7.3 % 0.0-11.0 Eos, Auto (test code = Eos, Auto) 1.4 % 0.0-7.0 Basophil Auto (test code = Basophil 0.7 % 0.0-2.0 Auto) Neutro Absolute (test code = Neutro 10.6 x10 1.6-7.4 H Absolute) Lymph Absolute (test code = Lymph 3.48 x10 .50-4.60 Absolute) Gratiot Absolute (test code = Gratiot 1.14 x10 .00-1.20 Absolute) Eos Absolute (test code = Eos 0.22 x10 0.00-0.74 Absolute) Baso Absolute (test code = Baso 0.11 x10 0.00-0.21 Absolute) IG [id number] 13:17:47 Test Item Value Reference Range Interpretation Comments IG (test code = IG) 0.6 % 0.0-5.0 IG Abs (test code = IG Abs) 0 x10 N
[2020-11-27 23:09] LABS: Basophils % 0.7 % (0-1.3); Hematocrit 25.2 % (39.6-49.0); MPV 7.1 fL (7.6-11.3); RBC Red Blood Cell Count 3.48 M/uL (4.33-5.43)
[2020-11-27 23:35] LABS: Protime INR 1.32
[2020-11-27 23:46] LABS: ALT/SGPT 16 U/L (12-78); AST/SGOT 15 U/L (15-37); Alkaline Phosphatase 103 U/L (45-117); BUN Blood Urea Nitrogen 15 mg/dL (7-18); Bicarbonate 23 mmol/L (21-32); Bilirubin Direct < 0.1 mg/dL (0-0.2); Bilirubin Total 0.3 mg/dL (0.2-1.0); Glucose Level 372 mg/dL (74-106); NT PRO-BNP 339 pg/mL (<125); Potassium 4.5 mmol/L (3.5-5.1); Protein, Total 7.7 g/dL (6.4-8.2); Sodium Level 132 mmol/L (136-145); Troponin (Emerg Dept Use Only) < 0.02 ng/mL (0.0-0.045)
[2020-11-28] MEDS ORDERED: ONDANSETRON 4 MG/2 ML VIAL ONE (00:26)
[2020-11-28] MEDS ORDERED: MORPHINE 4 MG/ML SYR ONE (00:26)
--- NOTE | 2020-11-28 00:43 | EDPHYS ---
Physician Documentation [facility] Name: Yassine Guerrero Jr Age: 45 yrs Sex: Male : 1975 Arrival Date: 11/27/2020 Time: 21:03 Bed 13 Private MD: ED Physician Beto Cortez HPI: 11/27 23:05 This 45 yrs old Male presents to ER via EMS with complaints of bleeding from pm1 left groin mass. 23:05 The patient presents with dizziness, and bleeding from left groin mass. Onset: The pm1 symptoms/episode began/occurred today. Modifying factors: The symptoms are alleviated by nothing, the symptoms are aggravated by bleeding from mass. Associated signs and symptoms: Pertinent positives: generalized weakness, Pertinent negatives: numbness, shortness of breath, tingling. Severity of symptoms: in the emergency department the symptoms have improved. Patient's baseline: Neuro: alert and fully oriented, Motor: no deficits, Ambulation: walks without assistance. The patient has experienced similar episodes in the past, chronically. The patient has not recently seen a physician, has an appointment scheduled, in 7 day(s), for biopsy of left groin mass. Historical: - Allergies: 21:20 No Known Allergies; vg1 - Home Meds: 21:20 gabapentin oral [Active]; Glipizide Oral [Active]; Metformin Oral [Active]; vg1 - PMHx: 21:43 Bipolar disorder; CPVC; HPV; PTSD; Rheumatoid Arthritis; em - PSHx: 21:43 Lymphnode removal; em - Immunization history:: Adult Immunizations up to date. - Social history:: Smoking status: Patient reports the use of cigarette tobacco products, smokes one pack cigarettes per day. ROS: 23:05 Constitutional: Negative for fever, chills, and weight loss, Cardiovascular: Negative pm1 for chest pain, palpitations, and edema, Respiratory: Negative for shortness of breath, cough, wheezing, and pleuritic chest pain, Abdomen/GI: Negative for abdominal pain, nausea, vomiting, diarrhea, and constipation, MS/Extremity: Negative for injury and deformity. 23:05 Skin: Positive for of the left groin area, mass. 23:05 Neuro: Positive for dizziness, generalized weakness. 23:05 All other systems are negative. Exam: 23:05 Constitutional: This is a well developed, well nourished patient who is awake, alert, pm1 and in no acute distress. Head/Face: Normocephalic, atraumatic. 23:05 Eyes: Exam is negative for acute changes, Extraocular movements: no acute changes, Conjunctiva: no acute changes, no injection, Sclera: no acute changes, icterus, is not appreciated. 23:05 ENT: Exam is negative for acute changes, Mouth: Lips: normal, Oral mucosa: normal, pink and intact, moist. 23:05 Cardiovascular: Rate: tachycardic, Rhythm: regular, Pulses: no pulse deficits are appreciated, Edema: is not appreciated. 23:05 Respiratory: Exam negative for acute changes, respiratory distress, shortness of breath. 23:05 Abdomen/GI: Inspection: obese Palpation: abdomen is soft and non-tender, in all quadrants. 23:05 Skin: Appearance: normal except for affected area, lesion(s), located on the left groin, Large fungating tumor appearing lesion without active bleeding present . Vital Signs: 21:05 BP 117 / 60; Pulse 117; Resp 24; Temp 99.5; Pulse Ox 99% ; Weight 165.56 kg; Height 5 vg1 ft. 7 in. (170.18 cm); Pain 8/10; 21:42 BP 113 / 64; Pulse 105; Resp 20; Pulse Ox 100% on R/A; em 11/28 00:26 BP 111 / 67; Pulse 92; Resp 20; Pulse Ox 97% on R/A; ak2 11/27 21:05 Body Mass Index 57.17 (165.56 kg, 170.18 cm) vg1 MDM: 11/27 22:20 Patient medically screened. [facility] 11/28 00:35 Physician consultation: Jonathan Monaco MD regarding consult, patient's condition, Has pm1 appointment in 1 [address] Monaco. He is not surprised by the patient's labs. Dr. Monaco is establishing home health/wound care for the patient. Patient's vital signs are stable. No active bleeding. No need for blood transfusion. Therefore I will discharge the patient home for follow up with Dr. Moncao . 00:38 Data reviewed: vital signs. Data interpreted: Pulse oximetry: on room air is 97 %. pm1 Interpretation: normal. 00:39 Counseling: I had a detailed discussion with the patient and/or guardian regarding: the pm1 historical points, exam findings, and any diagnostic results supporting the discharge/admit diagnosis, lab results, radiology results, the need for outpatient follow up, Dr. Monaco and wound care, to return to the emergency department if symptoms worsen or persist or if there are any questions or concerns that arise at home. 11/27 22:41 Order name: Basic Metabolic Panel; Complete Time: 23:51 pm1 11/27 22:41 Order name: CBC with Diff; Complete Time: 00:58 pm1 11/27 22:41 Order name: LFT's; Complete Time: 23:51 pm1 11/27 22:41 Order name: Magnesium; Complete Time: 23:51 pm1 11/27 22:41 Order name: NT PRO-BNP; Complete Time: 23:51 pm1 11/27 22:41 Order name: PT-INR; Complete Time: 23:51 pm1 11/27 22:41 Order name: Troponin (emerg Dept Use Only); Complete Time: 23:51 pm1 11/27 22:41 Order name: XRAY Chest (1 view) pm1 11/27 22:41 Order name: EKG; Complete Time: 22:42 pm1 11/27 22:41 Order name: Cardiac monitoring pm11/27 22:41 Order name: Type And Screen; Complete Time: 01:17 pm1 11/27 23:32 Order name: CBC Smear Scan; Complete Time: 00:58 EDMS 11/27 22:41 Order name: EKG - Nurse/Tech pm11/27 22:41 Order name: IV Saline Lock pm11/27 22:41 Order name: Labs collected and sent pm11/27 22:41 Order name: O2 Per Protocol pm11/27 22:41 Order name: O2 Sat Monitoring pm1 Administered Medications: 00:20 Drug: Zofran (Ondansetron) 4 mg Route: IVP; Site: right antecubital; ak2 00:21 Drug: morphine 4 mg Route: IVP; Site: right antecubital; ak2 Disposition: 07:35 Co-signature as Attending Physician, Beto Cortez MD I agree with the assessment and richardson plan of care. Disposition Summary: 11/28/20 00:42 Discharge Ordered Location: Home pm1 Problem: new pm1 Symptoms: have improved pm1 Condition: Stable pm1 Diagnosis - Left groin mass pm1 - Anemia, unspecified pm1 Followup: pm1 - With: Jonathan Monaco MD - When: 2 - 3 days - Reason: Recheck today's complaints, Continuance of care, Re-evaluation by your physician Discharge Instructions: - Discharge Summary Sheet pm1 - Anemia pm1 Forms: - Medication Reconciliation Form pm1 - Thank You Letter pm1 - Antibiotic Education pm1 - Prescription Opioid Use pm1 Prescriptions: - Flagyl 500 mg Oral Tablet - take 1 tablet by ORAL route every 8 hours for 10 days; 30 tablet; Refills: 0, pm1 Product Selection Permitted - Cipro 500 mg Oral Tablet - take 1 tablet by ORAL route every 12 hours for 7 days; 14 tablet; Refills: 0, pm1 Product Selection Permitted - Tramadol 50 mg Oral Tablet - take 1 tablet by ORAL route every 8 hours as needed; 12 tablet; Refills: 0, pm1 Product Selection Permitted Signatures: Dispatcher [employer] EDBeto Mcknight MD MD cha Munoz, Edgar, RN RN em Jose Osorio, PROJECT MANAGER RETAIL-C PROJECT MANAGER RETAIL-Cla1 Preet Gutierrez, SATELLITE INSTRUCTION FACILITATOR SATELLITE INSTRUCTION FACILITATOR pm1 Janet Johnston RN RN 1 Hakeem Luo
--- NOTE | 2020-11-28 00:43 | ER ---
Nurse's Notes [facility] Name: Yassine Guerrero Jr Age: 45 yrs Sex: Male : 1975 Arrival Date: 11/27/2020 Time: 21:03 Bed 13 Private MD: Diagnosis: Left groin mass;Anemia, unspecified Presentation: 11/27 21:05 Chief complaint: EMS states: Has a growth on Left inner thigh near the groin, fills vg1 with blood and then pops. Pt stated has HPV so EMS was unable to assess site. Pt stated was feeling weak and dizzy and stated was seen in ED for this before and had to get a blood transfusion. BGL was 366. Coronavirus screen: Client denies travel out of the [place] in the last 14 days. Ebola Screen: Patient negative for fever greater than or equal to 101.5 degrees Fahrenheit, and additional compatible Ebola Virus Disease symptoms. Initial Sepsis Screen: Does the patient meet any 2 criteria? RR > 20 per min. HR > 90 bpm. Yes Does the patient have a suspected source of infection?. Risk Assessment: Do you want to hurt yourself or someone else? Patient reports no desire to harm self or others. Onset of symptoms was November 27, 2020. 21:05 Method Of Arrival: EMS: [facility] vg1 21:05 Acuity: IRINEO 3 vg1 Triage Assessment: 21:20 General: Appears in no apparent distress. uncomfortable, Behavior is calm, cooperative. vg1 Pain: Complains of pain in Left Groin Pain currently is 8 out of 10 on a pain scale. Historical: - Allergies: 21:20 No Known Allergies; vg1 - Home Meds: 21:20 gabapentin oral [Active]; Glipizide Oral [Active]; Metformin Oral [Active]; vg1 - PMHx: 21:43 Bipolar disorder; CPVC; HPV; PTSD; Rheumatoid Arthritis; em - PSHx: 21:43 Lymphnode removal; em - Immunization history:: Adult Immunizations up to date. - Social history:: Smoking status: Patient reports the use of cigarette tobacco products, smokes one pack cigarettes per day. Screenin:42 Abuse screen: Denies threats or abuse. Denies injuries from another. Nutritional em screening: No deficits noted. Tuberculosis screening: No symptoms or risk factors identified. Fall Risk None identified. Assessment: 21:41 General: Appears in no apparent distress. Behavior is calm, cooperative. Pain: em Complains of pain in groin, left femoral area and left hip. Neuro: No deficits noted. Cardiovascular: Rhythm is sinus tachycardia. Respiratory: No deficits noted. Vital Signs: 21:05 BP 117 / 60; Pulse 117; Resp 24; Temp 99.5; Pulse Ox 99% ; Weight 165.56 kg; Height 5 vg1 ft. 7 in. (170.18 cm); Pain 8/10; 21:42 BP 113 / 64; Pulse 105; Resp 20; Pulse Ox 100% on R/A; em 08 00:26 BP 111 / 67; Pulse 92; Resp 20; Pulse Ox 97% on R/A; ak2 11/27 21:05 Body Mass Index 57.17 (165.56 kg, 170.18 cm) vg1 ED Course: 11/27 21:03 Patient arrived in ED. am2 21:20 Triage completed. vg1 21:20 Arm band placed on. vg1 21:42 Patient has correct armband on for positive identification. em 21:42 No provider procedures requiring assistance completed. Inserted saline lock:. em 22:19 Preet Gutierrez, JHONATAN is PHCP. pm1 22:19 Beto Cortez MD is Attending Physician. pm1 22:58 XRAY Chest (1 view) In Process Unspecified. EDMS 11/28 00:40 Jonathan Monaco MD is Referral Physician. pm1 Administered Medications: 00:20 Drug: Zofran (Ondansetron) 4 mg Route: IVP; Site: right antecubital; ak2 00:21 Drug: morphine 4 mg Route: IVP; Site: right antecubital; ak2 Outcome: 00:42 Discharge ordered by . pm1 01:33 Discharged to home ambulatory. ak2 01:33 Condition: good 01:33 Discharge instructions given to patient. 01:34 Patient left the ED. ak2 Signatures: Dispatcher [employer] EDRI Yemi Javier RN RN em Preet Gutierrez NP PIPE FITTER MARINE pm1 Fay Whitt am2 Janet Johnston RN RN vg1 Hakeem Luo ak2 Corrections: (The following items were deleted from the chart) 08/02 21:42 21:41 Cardiovascular: No deficits noted. em em
[2020-11-28 00:45] LABS: Anisocytosis 1+; Blood Morphology Comment NOTED (NOT SEEN); Hypochromasia 1+; Platelet Estimate ADEQ; Polychromasia 2+; White Blood Cell Scan OK (OK)
[2020-11-28 01:44] VITALS: TEMP 99.5
[2020-11-28 01:47] VITALS: BP 111/67; O2SAT 97
--- NOTE | 2020-11-28 07:21 | RAD REPORT ---
EXAM DESCRIPTION: RAD - Chest Single View - 11/27/2020 10:58 pm CLINICAL HISTORY: Dizziness COMPARISON: Chest Single View dated 11/09/2020 FINDINGS: No evidence of edema or pneumonia. Mild cardiomegaly.No acute osseous abnormality. No sign ificant pleural effusions or pneumothorax. Remote rib fractures. IMPRESSION: No acute cardiopulmonary disease.
--- NOTE | 2020-11-28 11:17 | EKG ---
Test Date: 2020-11-27 Test Time: 23:56:22 Sheet Catcher: MEASUREMENT RESULTS: Intervals: Rate: 111 [place]: 142 QRSD: 76 QT: 314 QTc: 427 [place]: P: 66 [place]: 142 QRS: 74 T: 63 INTERPRETIVE STATEMENTS: Sinus tachycardia Otherwise normal ECG Compared to ECG 11/09/2020 17:21:54 Sinus rhythm no longer present Electronically Signed On 11-28-20 11:16:18 CDT by Jose Rea
== END 2020-11-28 01:34 | disposition home or self-care (01) ==
LOC: ER 20:57
DX: D64.9 Anemia, unspecified (principal); F17.210 Nicotine dependence, cigarettes, uncomplicated; F31.9 Bipolar disorder, unspecified
CPT/HCPCS: 93005; 85025; 80048; 36415; 86900; 83735; 86850; 85610; 86901; 80076; 84484; 83880; 71045; J2405; 96374; 96375; 99284

== ENCOUNTER 2020-12-23 15:35 | Emergency (ER) | payer OTHER ==
--- OUTSIDE RECORDS SUMMARY | 2020-12-23 15:41 | XMS REPORT | Continuity of Care Document ---
:1975 Author Organization [facility] t Address [address] [place] [address] Care Team Providers Name Role Phone DR [...] Drug 5-04 Clear Allergie 00:00: Green s [facility] No Known DA Active U 2000- [facility] Food 4-20 Clear Allergie 00:00: Green s [address] [place] [address] NO KNOWN DA Active U 2000-0 [facility] CONTRAST 4-20 Clear MEDIA 00:00: Green ALLERG [address] [place] [address] NO KNOWN DA Active U 2000-0 [facility] OTHER 4-20 Clear ALLERGIE 00:00: Green S [facility] No Known DA Active U 2000-0 [facility] Drug 4-20 Clear Allergie 00:00: Green s [address] [place] [address] Medications This patient has no known medications. Procedures This patient has no known procedures. Encounters Start End Encounter Admission Attending Care Care Encounter Source Date/Time Date/Time Type Type Clinicians Facility Department ID 2019-07-15 2019-07-15 Emergency E ZHANE AMEZCUA [facility] [id number] 12:28:00 13:10:00 [facility] Results Test Description Test Time Test Comments Results Result Comments Source GLUBED 2020-10-12 12:17:00 Test Item Value Reference Range Interpretation Comme nts GLUBED (test code = GLUBED) 215 mg/dL 74-106 H Performed by certified cnc cutting operator at [facility] [id number] 12:17:00 Test Item Value Reference Range Interpretation Comments GLUBED (test code = 213 mg/dL 74-106 H Performe d by certified GLUBED) cnc cutting operator at [facility] [id number] 12:16:00 Test Item Value Reference Range Interpretation Comments GLUBED (test code = 156 mg/dL 74-106 H Performe d by certified GLUBED) cnc cutting operator at [facility] [id number] 12:15:00 Test Item Value Reference Range Interpretation Comments GLUBED (test code = 183 mg/dL 74-106 H Performe d by certified GLUBED) cnc cutting operator at [facility] [id number] 12:15:00 Test Item Value Reference Range Interpretation Comments GLUBED (test code 190 mg/dL 74-106 H Performed by certified = GLUBED) [facility] [id number] 12:14:00 Test Item Value Reference Range Interpretation Comments GLUBED (test code 212 mg/dL 74-106 H Performed by certified = GLUBED) [facility] [id number] 12:14:00 Test Item Value Reference Range Interpretation Comments GLUBED (test code = 263 mg/dL 74-106 H Performe d by certified GLUBED) cnc cutting operator at [facility] [id number] 16:11:00 Test Item Value Reference Range Interpretation Comments GLUBED (test code = 189 mg/dL 74-106 H Performe d by certified GLUBED) cnc cutting operator at [facility] [id number] 10:41:00 Test Item Value Reference Range Interpretation Comments GLUBED (test code = 182 mg/dL 74-106 H Performe d by certified GLUBED) cnc cutting operator at [facility] [id number] 20:48:00 Test Item Value Reference Range Interpretation Comments GLUBED (test code = 198 mg/dL 74-106 H Performe d by certified GLUBED) cnc cutting operator at [facility] [id number] 16:01:00 Test Item Value Reference Range Interpretation Comments GLUBED (test code = 177 mg/dL 74-106 H Performe d by certified GLUBED) cnc cutting operator at [facility] [id number] 11:42:00 Test Item Value Reference Range Interpretation Comments GLUBED (test code = 174 mg/dL 74-106 H Performe d by certified GLUBED) cnc cutting operator at [facility] CBC W/AUTO [id number] 06:22:00 Test Item Value Reference Range Interpretation [...] SCAN NEEDED (test code = MDIFF) DIFFERENTIAL [id number] 06:22:00 Test Item Value Reference Range Interpretation Comments STAIN ACCEPTABILITY (test STAIN ACCEPTABLE code = STN ACCEPTABLE) MORPHOLOGY COMMENT (test NORMAL code = MOC) PLATELET ESTIMATE (test code ADEQUATE = PLTEST) PLATELET MORPHOLOGY (test NORMAL code = PLTMORPH) BASIC METABOLIC [id number] 05:33:00 Test Item Value Reference Range Interpretation [...] >3 months. [Automated mess age] The system [employer] generated this result transmitted ref erence range: >=60. Th e reference range was not used to int erpret this result as normal/abnormal . CREATININE (test code 0.90 mg/dL 0.7-1.3 N = CREAT) BUN/CREATININE RATIO 11.6 10-20 N (test code = BUN/CREA) CALCIUM (test code = 8.5 mg/dL 8.5-10.1 N CA) CBC W/AUTO [id number] 05:01:00 Test Item Value Reference Range Interpretation [...] SCAN NEEDED (test code = MDIFF) DIFFERENTIAL [id number] 05:01:00 Test Item Value Reference Range Interpretation Comments STAIN ACCEPTABILITY (test code = STN ACCEPTABLE) CABOT RINGS (test code = CAB) MORPHOLOGY COMMENT (test code = MOC) PLATELET ESTIMATE (test code = PLTEST) PLATELET MORPHOLOGY (test code = PLTMORPH) CBC W/AUTO [id number] 05:01:00 Test Item Value Reference Range Interpretation [...] SCAN NEEDED (test code = MDIFF) DIFFERENTIAL [id number] 05:01:00 Test Item Value Reference Range Interpretation Comments STAIN ACCEPTABILITY (test code = STN ACCEPTABLE) CABOT RINGS (test code = CAB) MORPHOLOGY COMMENT (test code = MOC) PLATELET ESTIMATE (test code = PLTEST) PLATELET MORPHOLOGY (test code = PLTMORPH) CBC W/AUTO [id number] 05:01:00 Test Item Value Reference Range Interpretation [...] SCAN NEEDED (test code = MDIFF) DIFFERENTIAL [id number] 05:01:00 Test Item Value Reference Range Interpretation Comments STAIN ACCEPTABILITY (test code = STN ACCEPTABLE) MORPHOLOGY COMMENT (test code = MOC) PLATELET ESTIMATE (test code = PLTEST) PLATELET MORPHOLOGY (test code = PLTMORPH) CBC W/AUTO [id number] 05:01:00 Test Item Value Reference Range Interpretation [...] SCAN NEEDED (test code = MDIFF) DIFFERENTIAL [id number] 05:01:00 Test Item Value Reference Range Interpretation Comments STAIN ACCEPTABILITY (test code = STN ACCEPTABLE) CABOT RINGS (test code = CAB) MORPHOLOGY COMMENT (test code = MOC) PLATELET ESTIMATE (test code = PLTEST) PLATELET MORPHOLOGY (test code = PLTMORPH) [id number] 21:00:00 Test Item Value Reference Range Interpretation Comments GLUBED (test code = 211 mg/dL 74-106 H Performe d by certified GLUBED) cnc cutting operator at [facility] [id number] 16:29:00 Test Item Value Reference Range Interpretation Comments GLUBED (test code = 158 mg/dL 74-106 H Performe d by certified GLUBED) cnc cutting operator at [facility] [id number] 11:57:00 Test Item Value Reference Range Interpretation Comments GLUBED (test code = 101 mg/dL 74-106 N Performe d by certified GLUBED) cnc cutting operator at [facility] CBC W/AUTO [id number] 09:46:00 Test Item Value Reference Range Interpretation [...] SCAN NEEDED (test code = MDIFF) DIFFERENTIAL [id number] 09:46:00 Test Item Value Reference Range Interpretation Comments STAIN ACCEPTABILITY (test STAIN ACCEPTABLE code = STN ACCEPTABLE) MORPHOLOGY COMMENT (test NORMAL code = MOC) PLATELET ESTIMATE (test code ADEQUATE = PLTEST) PLATELET MORPHOLOGY (test NORMAL code = PLTMORPH) [id number] 08:20:00 Test Item Value Reference Range Interpretation Comments GLUBED (test code = 257 mg/dL 74-106 H Performe d by certified GLUBED) cnc cutting operator at [facility] BASIC METABOLIC [id number] 07:03:00 Test Item Value Reference Range Interpretation [...] >3 months. [Automated mess age] The system [employer] generated this result transmitted ref erence range: >=60. Th e reference range was not used to int erpret this result as normal/abnormal . CREATININE (test code 0.90 mg/dL 0.7-1.3 N = CREAT) BUN/CREATININE RATIO 11.7 10-20 N (test code = BUN/CREA) CALCIUM (test code = 8.6 mg/dL 8.5-10.1 N CA) CBC W/AUTO [id number] 05:51:00 Test Item Value Reference Range Interpretation [...] SCAN NEEDED (test code = MDIFF) DIFFERENTIAL [id number] 05:51:00 Test Item Value Reference Range Interpretation Comments STAIN ACCEPTABILITY (test code = STN ACCEPTABLE) CABOT RINGS (test code = CAB) MORPHOLOGY COMMENT (test code = MOC) PLATELET ESTIMATE (test code = PLTEST) PLATELET MORPHOLOGY (test code = PLTMORPH) CBC W/AUTO [id number] 05:51:00 Test Item Value Reference Range Interpretation [...] SCAN NEEDED (test code = MDIFF) DIFFERENTIAL [id number] 05:51:00 Test Item Value Reference Range Interpretation Comments STAIN ACCEPTABILITY (test code = STN ACCEPTABLE) CABOT RINGS (test code = CAB) MORPHOLOGY COMMENT (test code = MOC) PLATELET ESTIMATE (test code = PLTEST) PLATELET MORPHOLOGY (test code = PLTMORPH) CBC W/AUTO [id number] 05:51:00 Test Item Value Reference Range Interpretation [...] SCAN NEEDED (test code = MDIFF) DIFFERENTIAL [id number] 05:51:00 Test Item Value Reference Range Interpretation Comments STAIN ACCEPTABILITY (test code = STN ACCEPTABLE) MORPHOLOGY COMMENT (test code = MOC) PLATELET ESTIMATE (test code = PLTEST) PLATELET MORPHOLOGY (test code = PLTMORPH) CBC W/AUTO [id number] 05:51:00 Test Item Value Reference Range Interpretation [...] SCAN NEEDED (test code = MDIFF) DIFFERENTIAL [id number] 05:51:00 Test Item Value Reference Range Interpretation Comments STAIN ACCEPTABILITY (test code = STN ACCEPTABLE) CABOT RINGS (test code = CAB) MORPHOLOGY COMMENT (test code = MOC) PLATELET ESTIMATE (test code = PLTEST) PLATELET MORPHOLOGY (test code = PLTMORPH) [id number] 16:50:00 Test Item Value Reference Range Interpretation Comments GLUBED (test code 215 mg/dL 74-106 H Performed by certified = GLUBED) [facility] [id number] 12:01:00 Test Item Value Reference Range Interpretation Comments GLUBED (test code 187 mg/dL 74-106 H Performed by certified = GLUBED) [facility]nc [facility]~ [id number] 20:23:00 Test Item Value Reference Range Interpretation Comments GLUBED (test code = 232 mg/dL 74-106 H Performe d by certified GLUBED) cnc cutting operator at [facility] [id number] 16:36:00 Test Item Value Reference Range Interpretation Comments GLUBED (test code = 180 mg/dL 74-106 H Performe d by certified GLUBED) cnc cutting operator at [facility] [id number] 12:14:00 Test Item Value Reference Range Interpretation Comments GLUBED (test code = 221 mg/dL 74-106 H Performe d by certified GLUBED) cnc cutting operator at [facility] [id number] 08:41:00 Test Item Value Reference Range Interpretation Comments GLUBED (test code = 228 mg/dL 74-106 H Performe d by certified GLUBED) cnc cutting operator at [facility] CBC W/AUTO [id number] 06:22:00 Test Item Value Reference Range Interpretation [...] SCAN NEEDED (test code = MDIFF) DIFFERENTIAL [id number] 06:22:00 Test Item Value Reference Range Interpretation Comments STAIN ACCEPTABILITY (test STAIN ACCEPTABLE code = STN ACCEPTABLE) POLYCHROMASIA (test code = 1+ POLC) PLATELET ESTIMATE (test code ADEQUATE = PLTEST) PLATELET MORPHOLOGY (test NORMAL code = PLTMORPH) BASIC METABOLIC [id number] 05:57:00 Test Item Value Reference Range Interpretation [...] >3 months. [Automated mess age] The system [employer] generated this result transmitted ref erence range: >=60. Th e reference range was not used to int erpret this result as normal/abnormal . CREATININE (test code 0.80 mg/dL 0.7-1.3 N = CREAT) BUN/CREATININE RATIO 11.9 10-20 N (test code = BUN/CREA) CALCIUM (test code = 8.3 mg/dL 8.5-10.1 L CA) CBC W/AUTO [id number] 05:37:00 Test Item Value Reference Range Interpretation [...] SCAN NEEDED (test code = MDIFF) DIFFERENTIAL [id number] 05:37:00 Test Item Value Reference Range Interpretation Comments STAIN ACCEPTABILITY (test code = STN ACCEPTABLE) CABOT RINGS (test code = CAB) MORPHOLOGY COMMENT (test code = MOC) PLATELET ESTIMATE (test code = PLTEST) PLATELET MORPHOLOGY (test code = PLTMORPH) CBC W/AUTO [id number] 05:37:00 Test Item Value Reference Range Interpretation [...] SCAN NEEDED (test code = MDIFF) DIFFERENTIAL [id number] 05:37:00 Test Item Value Reference Range Interpretation Comments STAIN ACCEPTABILITY (test code = STN ACCEPTABLE) CABOT RINGS (test code = CAB) MORPHOLOGY COMMENT (test code = MOC) PLATELET ESTIMATE (test code = PLTEST) PLATELET MORPHOLOGY (test code = PLTMORPH) CBC W/AUTO [id number] 05:37:00 Test Item Value Reference Range Interpretation [...] SCAN NEEDED (test code = MDIFF) DIFFERENTIAL [id number] 05:37:00 Test Item Value Reference Range Interpretation Comments STAIN ACCEPTABILITY (test code = STN ACCEPTABLE) MORPHOLOGY COMMENT (test code = MOC) PLATELET ESTIMATE (test code = PLTEST) PLATELET MORPHOLOGY (test code = PLTMORPH) CBC W/AUTO [id number] 05:37:00 Test Item Value Reference Range Interpretation [...] SCAN NEEDED (test code = MDIFF) DIFFERENTIAL [id number] 05:37:00 Test Item Value Reference Range Interpretation Comments STAIN ACCEPTABILITY (test code = STN ACCEPTABLE) CABOT RINGS (test code = CAB) MORPHOLOGY COMMENT (test code = MOC) PLATELET ESTIMATE (test code = PLTEST) PLATELET MORPHOLOGY (test code = PLTMORPH) [id number] 16:06:00 Test Item Value Reference Range Interpretation Comments GLUBED (test code 237 mg/dL 74-106 H Performed by certified = GLUBED) [facility] [id number] 12:35:00 Test Item Value Reference Range Interpretation Comments GLUBED (test code 271 mg/dL 74-106 H Performed by certified = GLUBED) cnc [facility]~ [id number] 08:08:00 Test Item Value Reference Range Interpretation Comments GLUBED (test code 233 mg/dL 74-106 H Performed by certified = GLUBED) cnc [facility]~ CBC W/AUTO [id number] 07:56:00 Test Item Value Reference Range Interpretation [...] SCAN NEEDED (test code = MDIFF) DIFFERENTIAL [id number] 07:56:00 Test Item Value Reference Range Interpretation Comments STAIN ACCEPTABILITY (test STAIN ACCEPTABLE code = STN ACCEPTABLE) MORPHOLOGY COMMENT (test NORMAL code = MOC) PLATELET ESTIMATE (test code ADEQUATE = PLTEST) PLATELET MORPHOLOGY (test NORMAL code = PLTMORPH) COMPREHENSIVE METABOLIC [id number] 05:54:00 Test Item Value Reference Range Interpretation [...] >3 months. [Automated mess age] The system [employer] generated this result transmitted ref erence range: [...] ALKP) to change in reagent. CBC W/AUTO [id number] 05:12:00 Test Item Value Reference Range Interpretation [...] SCAN NEEDED (test code = MDIFF) DIFFERENTIAL [id number] 05:12:00 Test Item Value Reference Range Interpretation Comments STAIN ACCEPTABILITY (test code = STN ACCEPTABLE) MORPHOLOGY COMMENT (test code = MOC) PLATELET ESTIMATE (test code = PLTEST) PLATELET MORPHOLOGY (test code = PLTMORPH) CBC W/AUTO [id number] 05:12:00 Test Item Value Reference Range Interpretation [...] SCAN NEEDED (test code = MDIFF) DIFFERENTIAL [id number] 05:12:00 Test Item Value Reference Range Interpretation Comments STAIN ACCEPTABILITY (test code = STN ACCEPTABLE) CABOT RINGS (test code = CAB) MORPHOLOGY COMMENT (test code = MOC) PLATELET ESTIMATE (test code = PLTEST) PLATELET MORPHOLOGY (test code = PLTMORPH) CBC W/AUTO [id number] 05:11:00 Test Item Value Reference Range Interpretation [...] SCAN NEEDED (test code = MDIFF) DIFFERENTIAL [id number] 05:11:00 Test Item Value Reference Range Interpretation Comments STAIN ACCEPTABILITY (test code = STN ACCEPTABLE) CABOT RINGS (test code = CAB) MORPHOLOGY COMMENT (test code = MOC) PLATELET ESTIMATE (test code = PLTEST) PLATELET MORPHOLOGY (test code = PLTMORPH) CBC W/AUTO [id number] 05:11:00 Test Item Value Reference Range Interpretation [...] SCAN NEEDED (test code = MDIFF) DIFFERENTIAL [id number] 05:11:00 Test Item Value Reference Range Interpretation Comments STAIN ACCEPTABILITY (test code = STN ACCEPTABLE) CABOT RINGS (test code = CAB) MORPHOLOGY COMMENT (test code = MOC) PLATELET ESTIMATE (test code = PLTEST) PLATELET MORPHOLOGY (test code = PLTMORPH) [id number] 20:37:00 Test Item Value Reference Range Interpretation Comments GLUBED (test code = 297 mg/dL 74-106 H Performe d by certified GLUBED) cnc cutting operator at [facility] URINALYSIS [id number] 17:21:00 Test Item Value Reference Range Interpretation [...] (test code = AMORU) Urine Source? Clean [id number] 16:41:00 Test Item Value Reference Range Interpretation Comments GLUBED (test code = 234 mg/dL 74-106 H Performe d by certified GLUBED) cnc cutting operator at [facility] COMPREHENSIVE METABOLIC [id number] 12:38:00 Test Item Value Reference Range Interpretation [...] >3 months. [Automated mess age] The system [employer] generated this result transmitted ref erence range: [...] range due ALKP) to change in reagent. [id number] 11:38:00 Test Item Value Reference Range Interpretation Comments GLUBED (test code = 237 mg/dL 74-106 H Performe d by certified GLUBED) cnc cutting operator at [facility] LIPID PROFILE (CORONARY RISK)2020-08-30 09:41:00 Test Item [...] is a direct measurement.=== ====== THYROID STIMULATING [id number] 09:41:00 Test Item Value Reference Range Interpretation Comments THYROID STIMULATING 2.255 uIU/mL 0.36-3.74 N TSH REFE RENCE HORMONE (test code = RANGES: EUTHYROID: TSH) 0.35 - 4.3 mIU/mL HYPO : > 5.5 mIU/mL HYPER : < 0.35 mIU/mL CBC W/AUTO [id number] 09:11:00 Test Item Value Reference Range Interpretation [...] SCAN NEEDED (test code = MDIFF) DIFFERENTIAL [id number] 09:11:00 Test Item Value Reference Range Interpretation Comments STAIN ACCEPTABILITY (test STAIN ACCEPTABLE code = STN ACCEPTABLE) POLYCHROMASIA (test code = 1+ POLC) HYPOCHROMIA (test code = 1+ HYPO) ANISOCYTOSIS (test code = 1+ ANISO) MICROCYTOSIS (test code = 1+ MICR) PLATELET ESTIMATE (test code ADEQUATE = PLTEST) PLATELET MORPHOLOGY (test NORMAL code = PLTMORPH) [id number] 08:40:00 Test Item Value Reference Range Interpretation Comments GLYCOSYLATED HEMOGLOBIN 11.0 % HbA1 WILLA MATOS (HA1C) (test code = DIAGNOSI S: HbA1C GLYHGB) (%) ---- ------ Diab etic >6.4Prediabetes 5.7 - 6.4Normal <5.7 ESTIMATED AVERAGE 269 MG/DL GLUCOSE (test code = EAG) CBC W/AUTO [id number] 08:23:00 Test Item Value Reference Range Interpretation [...] SCAN NEEDED (test code = MDIFF) DIFFERENTIAL [id number] 08:23:00 Test Item Value Reference Range Interpretation Comments STAIN ACCEPTABILITY (test code = STN ACCEPTABLE) CABOT RINGS (test code = CAB) MORPHOLOGY COMMENT (test code = MOC) PLATELET ESTIMATE (test code = PLTEST) PLATELET MORPHOLOGY (test code = PLTMORPH) CBC W/AUTO [id number] 08:23:00 Test Item Value Reference Range Interpretation [...] SCAN NEEDED (test code = MDIFF) DIFFERENTIAL [id number] 08:23:00 Test Item Value Reference Range Interpretation Comments STAIN ACCEPTABILITY (test code = STN ACCEPTABLE) MORPHOLOGY COMMENT (test code = MOC) PLATELET ESTIMATE (test code = PLTEST) PLATELET MORPHOLOGY (test code = PLTMORPH) CBC W/AUTO [id number] 08:22:00 Test Item Value Reference Range Interpretation [...] SCAN NEEDED (test code = MDIFF) DIFFERENTIAL [id number] 08:22:00 Test Item Value Reference Range Interpretation Comments STAIN ACCEPTABILITY (test code = STN ACCEPTABLE) CABOT RINGS (test code = CAB) MORPHOLOGY COMMENT (test code = MOC) PLATELET ESTIMATE (test code = PLTEST) PLATELET MORPHOLOGY (test code = PLTMORPH) CBC W/AUTO [id number] 08:22:00 Test Item Value Reference Range Interpretation [...] SCAN NEEDED (test code = MDIFF) DIFFERENTIAL [id number] 08:22:00 Test Item Value Reference Range Interpretation Comments STAIN ACCEPTABILITY (test code = STN ACCEPTABLE) CABOT RINGS (test code = CAB) MORPHOLOGY COMMENT (test code = MOC) PLATELET ESTIMATE (test code = PLTEST) PLATELET MORPHOLOGY (test code = PLTMORPH) - CT ABD PELVIS [id number] 20:38:00 [facility])Name: RAN EVERETT : 1975 Sex: M Name: RAN EVERETT 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 : 1975 Age/S: 44/M Kaden Fre[facility] Unit #: [id number] Loc: [place] [address] Phys: Ban Arnold NP Acct: [id number] Dis Date: Status: REG ER PHONE #: [phone] Exam Date: 08/29/20201918 FAX #: [phone] Reason: CODE SEPSIS EXAMS: CPT CODE: [id number] XR CHEST 1 V 53271 EXAM: Chest X- ray, 1 view; CLINICAL [...] (2017) PAGE 1 Signed ReportCOVID 19 INHOUSE [id number] 20:02:00 Test Item Value Reference Range Interpretation Comments COVID 19 INHOUSE AG (test code = NEGATIVE NEGATIVE [id number]) BASIC METABOLIC [id number] 19:53:00 Test Item Value Reference Range Interpretation [...] >3 months. [Automated mess age] The system [employer] generated this result transmitted ref erence range: >=60. Th e reference range was not used to int erpret this result as normal/abnormal . CREATININE (test 1.00 mg/dL 0.7-1.3 N code = CREAT) BUN/CREATININE RATIO 11.6 10-20 N (test code = BUN/CREA) CALCIUM (test code = 8.5 mg/dL 8.5-10.1 N CA) HEPATIC FUNCTION [id number] 19:53:00 Test Item Value Reference Range Interpretation [...] range due ALKP) to change in reagent. [id number] 19:53:00 Test Item Value Reference Range Interpretation Comments TROPONIN-I (test code = TROPI) < 0.006 ng/mL 0-0.045 N B-TYPE NATRIURETIC [id number] 19:52:00 Test Item Value Reference Range Interpretation Comments B-TYPE NATRIURETIC PEPTIDE 20.0 pgram/mL 0-100 N (test code = BNP) LACTIC [id number] 19:33:00 Test Item Value Reference Range Interpretation Comments LACTIC ACID (test code = LACT) 1.3 mmol/L 0.4-1.9 N CBC W/AUTO [id number] 19:15:00 Test Item Value Reference Range Interpretation [...] code = 0.00 K/mm3 0.0-0.1 N NRBC#) [place] [id number] 07:04:53 Test Item Value Reference Range Interpretation Comments [place] Level (test code = 0.52 mmol/L 0.60-1.20 L [place] Level) [place] [id number] 06:31:16 Test Item Value Reference Range Interpretation Comments [place] Level (test code = 0.39 mmol/L 0.60-1.20 L [place] Level) RPR [id number] 03:58:40 Test Item Value Reference Range Interpretation [...] = 08/26/2019 N Expiration Dt) Thyroid Stimulating [id number] 02:50:00 Test Item Value Reference Range Interpretation Comments TSH (test code = TSH) 1.590 mIU/mL 0.270-4.200 Lipid [id number] 02:33:22 Test Item Value Reference Range Interpretation Comments Cholesterol Total 197 mg/dL 0-200 RISK OF HE ART (test code = DISEASEPublishe d by Cholesterol Total) [place] [employer] Lashawn lyte Optimal Borderl ine [...] LDL/HDL Ratio=L DL Calc/HDL Chol Comprehensive Metabolic [id number] 18:09:30 Test Item Value Reference Range Interpretation [...] A/G 1.6 ratio N Ratio) Comprehensive Metabolic [id number] 18:09:30 Test Item Value Reference Range Interpretation [...] National [employer] Foundation, [email or web address] Comprehensive Metabolic [id number] 18:09:30 Test Item Value Reference Range Interpretation [...] ag e have not been validated by [facility] MDRD study and should be interpreted [...] ag e have not been validated by [facility] MDRD study and should be interpreted wit h caution. eGFR R esult Interpretation: eGFR > or = 60 is in the Normal RangeeGF R < 60 may mean kid wong diseaseeGFR < 1 5 may mean kidney failure Rang es recommended by the National Kidney Foundation, http://nkdep.ni h.gov Complete Blood Count with [id number] 17:49:02 Test Item Value Reference Range Interpretation [...] code = IPF) 0 % N Automated [id number] 17:49:02 Test Item Value Reference Range Interpretation Comments Neutro Auto (test code = Neutro 60.9 % 36.0-70.0 Auto) Lymph Auto (test code = Lymph Auto) 28.2 % 12.0-44.0 Stephenson Auto (test code = Stephenson Auto) 8.0 % 0.0-11.0 Eos, Auto (test code = Eos, Auto) 1.7 % 0.0-7.0 Basophil Auto (test code = Basophil 0.7 % 0.0-2.0 Auto) Neutro Absolute (test code = Neutro 8.0 x10 1.6-7.4 H Absolute) Lymph Absolute (test code = Lymph 3.71 x10 .50-4.60 Absolute) Stephenson Absolute (test code = Stephenson 1.06 x10 .00-1.20 Absolute) Eos Absolute (test code = Eos 0.23 x10 0.00-0.74 Absolute) Baso Absolute (test code = Baso 0.09 x10 0.00-0.21 Absolute) IG [id number] 17:49:02 Test Item Value Reference Range Interpretation Comments IG (test code = IG) 0.5 % 0.0-5.0 IG Abs (test code = IG Abs) 0 x10 N Comprehensive Metabolic [id number] 13:30:37 Test Item Value Reference Range Interpretation [...] ratio N = A/G Ratio) Comprehensive Metabolic [id number] 13:30:37 Test Item Value Reference Range Interpretation [...] the National Kidney Foundation, http://nkdep.ni h.gov Alcohol [id number] 13:30:37 Test Item Value Reference Range Interpretation Comments Ethanol Level (test <0.00 g/dL 0.00-0.01 Intoxica annita 0.080 g/dL code = Ethanol or more Level) Ethanol Inst (test <0 N code = Ethanol Inst) Comprehensive Metabolic [id number] 13:30:37 Test Item Value Reference Range Interpretation [...] ag e have not been validated by [facility] MDRD study and should be interpreted [...] ag e have not been validated by [facility] MDRD study and should be interpreted wit h caution. eGFR R esult Interpretation: eGFR > or = 60 is in the Normal RangeeGF R < 60 may mean kid wong diseaseeGFR < 1 5 may mean kidney failure Rang es recommended by the National Kidney Foundation, http://nkdep.ni h.gov Drugs of Abuse Urine [id number] 13:26:52 Test Item Value Reference Range Interpretation [...] Cannabinoid Screen Ur) Complete Blood Count with [id number] 13:17:47 Test Item Value Reference Range Interpretation [...] code = IPF) 0 % N Automated [id number] 13:17:47 Test Item Value Reference Range Interpretation Comments Neutro Auto (test code = Neutro 67.8 % 36.0-70.0 Auto) Lymph Auto (test code = Lymph Auto) 22.2 % 12.0-44.0 Stephenson Auto (test code = Stephenson Auto) 7.3 % 0.0-11.0 Eos, Auto (test code = Eos, Auto) 1.4 % 0.0-7.0 Basophil Auto (test code = Basophil 0.7 % 0.0-2.0 Auto) Neutro Absolute (test code = Neutro 10.6 x10 1.6-7.4 H Absolute) Lymph Absolute (test code = Lymph 3.48 x10 .50-4.60 Absolute) Stephenson Absolute (test code = Stephenson 1.14 x10 .00-1.20 Absolute) Eos Absolute (test code = Eos 0.22 x10 0.00-0.74 Absolute) Baso Absolute (test code = Baso 0.11 x10 0.00-0.21 Absolute) IG [id number] 13:17:47 Test Item Value Reference Range Interpretation Comments IG (test code = IG) 0.6 % 0.0-5.0 IG Abs (test code = IG Abs) 0 x10 N
[2020-12-23] MEDS ORDERED: HYDROCODONE/APAP 10/325 TAB ONE (16:25)
[2020-12-23 16:38] LABS: Absolute Lymphocytes (CBC) 2.4 K/uL (0.7-4.9); Basophils % 1.5 % (0-1.3); Hematocrit 24.8 % (39.6-49.0); Lymphocytes % 13.6 % (15.3-44.8); MPV 6.8 fL (7.6-11.3); RBC Red Blood Cell Count 3.89 M/uL (4.33-5.43)
[2020-12-23 16:54] LABS: Potassium 4.4 mmol/L (3.5-5.1)
[2020-12-23] MEDS ORDERED: MORPHINE 4 MG/ML SYR ONE (18:22)
[2020-12-23] MEDS ORDERED: ONDANSETRON 4 MG/2 ML VIAL ONE (18:22)
--- NOTE | 2020-12-23 18:32 | EDPHYS ---
Physician Documentation [facility] Name: Yassine Guerrero Jr Age: 45 yrs Sex: Male : 1975 Arrival Date: 12/23/2020 Time: 15:40 Bed Treatment Private MD: HODAN Physician Beto Cortez HPI: 12/23 16:06 This 45 yrs old Male presents to ER via EMS with complaints of Wound Recheck. pm1 16:06 Patient presents to ED for recheck of: Mass to left groin. Progress: The patient pm1 reports no change in presentation of wound. Patient reports bleeding episode this morning that has resolved. Patient was cleaning his wound with hydrogen peroxide prior to onset of bleeding. Patient was last seen in the ER here on 11/27/2020 for similar complaints of bleeding from chronic wound that resolved. Patient was discharged home for follow-up with general surgeon, Dr. Monaco for biopsy of wound. Patient did not make his appointment for the biopsy and rescheduled it for this upcoming Friday.. The patient has experienced similar episodes in the past, chronically. The patient has not recently seen a physician, has an appointment scheduled, in 3 day(s), With Dr. Monaco. Historical: - Allergies: 15:43 No Known Allergies; ss - PMHx: 15:43 Bipolar disorder; CPVC; HPV; PTSD; Rheumatoid Arthritis; ss - PSHx: 15:43 Lymphnode removal; ss - Immunization history:: Client reports having NOT received the Covid vaccine. - Social history:: Smoking status: Patient/guardian denies using tobacco, Stopped _ months ago 2. ROS: 16:09 Constitutional: Negative for fever, chills, and weight loss, Cardiovascular: Negative pm1 for chest pain, palpitations, and edema, Respiratory: Negative for shortness of breath, cough, wheezing, and pleuritic chest pain, Abdomen/GI: Negative for abdominal pain, nausea, vomiting, diarrhea, and constipation, MS/Extremity: Negative for injury and deformity. 16:09 Neuro: Negative for headache, weakness, numbness, tingling, and seizure. 16:09 Skin: Positive for of the Left groin area, mass. 16:09 All other systems are negative. Exam: 16:09 Constitutional: This is a well developed, well nourished patient who is awake, alert, pm1 and in no acute distress. Head/Face: Normocephalic, atraumatic. 16:09 Eyes: Exam is negative for acute changes, Extraocular movements: no acute changes, Conjunctiva: no acute changes, no injection, Sclera: no acute changes, icterus, is not appreciated. 16:09 ENT: Exam is negative for acute changes, Mouth: Lips: normal, Oral mucosa: normal, pink and intact, moist, Dental exam: missing teeth, diffusely. 16:09 Cardiovascular: Rate: tachycardic, actual rate is 103 bpm, Rhythm: regular, Pulses: no pulse deficits are appreciated, Edema: is not appreciated. 16:09 Respiratory: Exam negative for acute changes, respiratory distress, shortness of breath. 16:09 Abdomen/GI: Inspection: obese Palpation: abdomen is soft and non-tender, in all quadrants. 16:09 Skin: Appearance: normal except for affected area, lesion(s), located on the Left groin area, Large fungating tumor appearing lesion without active bleeding present. 16:09 Neuro: Exam negative for acute changes, Orientation: is normal, Mentation: is normal, Motor: is normal, moves all fours. Vital Signs: 15:40 BP 142 / 74; Pulse 103; Resp 23; Temp 98.3(TE); Pulse Ox 99% on R/A; Weight 181.44 kg; ss Height 5 ft. 8 in. (172.72 cm); Pain 10/10; 18:07 BP 145 / 64; Pulse 105; Resp 20; Pulse Ox 99% ; vg1 15:40 Body Mass Index 60.82 (181.44 kg, 172.72 cm) ss MDM: 15:49 Patient medically screened. pm1 16:09 Data reviewed: vital signs. Data interpreted: Pulse oximetry: on room air is 99 %. pm1 Interpretation: normal. 18:07 ED course: Patient without any active bleeding present. Patient hemoglobin at baseline. pm1 On prior ER visit at the beginning of this month hemoglobin 7.5. 18:26 Counseling: I had a detailed discussion with the patient and/or guardian regarding: the pm1 historical points, exam findings, and any diagnostic results supporting the discharge/admit diagnosis, lab results, the need for outpatient follow up, for definitive care, a general surgeon, With Dr. Monaco for biopsy and further treatment. 18:37 ED course: [place]MP[place] reviewed. 11/11/2020 last prescription filled. pm1 12/23 15:55 Order name: CBC with Diff pm1 12/23 15:55 Order name: BMP; Complete Time: 16:55 pm1 12/23 15:55 Order name: IV Saline Lock; Complete Time: 16:25 pm1 Administered Medications: 16:10 Drug: [place] (HYDROcodone-acetaminophen) 10 mg-325 mg 1 tabs Route: PO; vg1 18:06 Follow up: Response: No adverse reaction; No change in condition vg1 18:03 Drug: Zofran (Ondansetron) 4 mg Route: IVP; Site: left antecubital; vg1 19:13 Follow up: Response: No adverse reaction; Marked relief of symptoms vg1 18:05 Drug: morphine 4 mg Route: IVP; Site: left antecubital; vg1 19:13 Follow up: Response: No adverse reaction; Pain is decreased vg1 Disposition: 12/24 08:34 Co-signature as Attending Physician, Beto Cortez MD I agree with the assessment and richardson plan of care. Disposition Summary: 12/23/20 18:31 Discharge Ordered Location: Home pm1 Problem: new pm1 Symptoms: have improved pm1 Condition: Stable pm1 Diagnosis - Anemia, unspecified pm1 - Chronic open wound to left groin pm1 - Left groin mass pm1 Followup: pm1 - With: Emergency Department - When: As needed - Reason: Worsening of condition Followup: pm1 - With: Jonathan Monaco MD - When: 12/26/2020 - Reason: Wound Recheck, Recheck today's complaints, Continuance of care, Re-evaluation by your physician Discharge Instructions: - Discharge Summary Sheet pm1 - Anemia pm1 - Wound Care, Adult pm1 Forms: - Medication Reconciliation Form pm1 - Thank You Letter pm1 - Antibiotic Education pm1 - Prescription Opioid Use pm1 Prescriptions: - Tramadol 50 mg Oral Tablet - take 1 tablet by ORAL route every 8 hours as needed; 12 tablet; Refills: 0, pm1 Product Selection Permitted Signatures: Dispatcher [employer] Beto Walters MD MD cha Smirch, Shelby, RN RN Preet Gonzalez NP [employer]ARD TRUCK DRIVER pm1 Preston, Janet, RN RN vg1
--- NOTE | 2020-12-23 18:32 | ER ---
Nurse's Notes [facility] Name: Yassine Guerrero Jr Age: 45 yrs Sex: Male : 1975 Arrival Date: 12/23/2020 Time: 15:40 Bed Treatment Private MD: Diagnosis: Anemia, unspecified;Left groin mass Presentation: 12/23 15:40 Chief complaint: EMS states: mass to L groin area that was bleeding earlier today. Pt ss reported that approximately 2 cups of blood was lost. No active bleeding noted at this time. Pt reports this has happened before. Is not currently receiving treatment for mass, but has had a biopsy. Coronavirus screen: Vaccine status:. Ebola Screen: Patient denies exposure to infectious person. Patient denies travel to an Ebola-affected area in the 21 days before illness onset. Initial Sepsis Screen: Does the patient meet any 2 criteria? No. Patient's initial sepsis screen is negative. Does the patient have a suspected source of infection? No. Patient's initial sepsis screen is negative. Risk Assessment: Do you want to hurt yourself or someone else? Patient reports no desire to harm self or others. Onset of symptoms was December 23, 2020. 15:40 Method Of Arrival: EMS: [facility] ss 15:40 Acuity: IRINEO 3 ss Historical: - Allergies: 15:43 No Known Allergies; ss - PMHx: 15:43 Bipolar disorder; CPVC; HPV; PTSD; Rheumatoid Arthritis; ss - PSHx: 15:43 Lymphnode removal; ss - Immunization history:: Client reports having NOT received the Covid vaccine. - Social history:: Smoking status: Patient/guardian denies using tobacco, Stopped _ months ago 2. Screenin:47 Abuse screen: Denies threats or abuse. Nutritional screening: No deficits noted. vg1 Tuberculosis screening: No symptoms or risk factors identified. Fall Risk No fall in past 12 months (0 pts). No secondary diagnosis (0 pts). IV access (20 points). Ambulatory Aid- Crutches/Cane/Walker (15 pts). Gait- Weak (10 pts.). Mental Status- Oriented to own ability (0 pts). Total Renteria Fall Scale indicates High Risk Score (45 or more points). Fall prevention measures have been instituted. Side Rails Up X 2 Placed Close to Nursing Station. Assessment: 15:43 General: Appears in no apparent distress. uncomfortable, Behavior is calm, cooperative. vg1 Pain: Complains of pain in left femoral area and left inguinal area Pain currently is 10 out of 10 on a pain scale. Noted to be grimacing, guarding, moaning. Neuro: Level of Consciousness is awake, alert, obeys commands, Oriented to person, place, time, situation. Cardiovascular: Patient's skin is warm and dry. Respiratory: Airway is patent Respiratory effort is even, unlabored. GI: Abdomen is round non-distended, obese. : No signs and/or symptoms were reported regarding the genitourinary system. EENT: No signs and/or symptoms were reported regarding the EENT system. Derm: Skin is moist, Skin is red, Wound noted left femoral area and left inguinal area Reports pain that is 10 out of 10 on a pain scale. 'have not been cleaning site the way I should be' stated using paper towels and hydrogen peroxide to clean and pack site. Musculoskeletal: Reports 'havent been able to get out of bed because the pain just hurts so bad'. 16:50 Reassessment: Patient appears in no apparent distress at this time. No changes from vg1 previously documented assessment. Patient and/or family updated on plan of care and expected duration. Pain level reassessed. Patient is alert, oriented x 3, equal unlabored respirations, skin warm/dry/pink. 18:07 Reassessment: Patient appears in no apparent distress at this time. No changes from vg1 previously documented assessment. Patient and/or family updated on plan of care and expected duration. Pain level reassessed. Patient is alert, oriented x 3, equal unlabored respirations, skin warm/dry/pink. 18:54 Reassessment: Pt up for d/c; stated is calling family to get picked up and stated needs vg1 assistance getting out of bed and into a wheelchair. Vital Signs: 15:40 BP 142 / 74; Pulse 103; Resp 23; Temp 98.3(TE); Pulse Ox 99% on R/A; Weight 181.44 kg; ss Height 5 ft. 8 in. (172.72 cm); Pain 10/10; 18:07 BP 145 / 64; Pulse 105; Resp 20; Pulse Ox 99% ; vg1 15:40 Body Mass Index 60.82 (181.44 kg, 172.72 cm) ED Course: 15:40 Patient arrived in ED. ss 15:42 Triage completed. 15:43 Janet Johnston, RN is Primary Nurse. vg1 15:43 Arm band placed on right wrist. ss 15:47 Patient has correct armband on for positive identification. Placed in gown. Bed in low vg1 position. Call light in reach. Side rails up X2. 15:49 rPeet Gutierrez NP is PHCP. pm1 15:49 Beto Cortez MD is Attending Physician. pm1 16:25 Initial lab(s) drawn, by il, sent to lab. Inserted saline lock: 20 gauge in left vg1 antecubital area, using aseptic technique. Blood collected. 18:29 Jonathan Monaco MD is Referral Physician. pm1 18:54 No provider procedures requiring assistance completed. IV discontinued, intact, vg1 bleeding controlled, No redness/swelling at site. Pressure dressing applied. Administered Medications: 16:10 Drug: [place] (HYDROcodone-acetaminophen) 10 mg-325 mg 1 tabs Route: PO; vg1 18:06 Follow up: Response: No adverse reaction; No change in condition vg1 18:03 Drug: Zofran (Ondansetron) 4 mg Route: IVP; Site: left antecubital; vg1 19:13 Follow up: Response: No adverse reaction; Marked relief of symptoms vg1 18:05 Drug: morphine 4 mg Route: IVP; Site: left antecubital; vg1 19:13 Follow up: Response: No adverse reaction; Pain is decreased vg1 Outcome: 18:31 Discharge ordered by . pm1 18:55 Discharged to home via wheelchair. vg1 18:55 Condition: stable 18:55 Discharge instructions given to patient, Instructed on discharge instructions, follow up and referral plans. medication usage, Demonstrated understanding of instructions, follow-up care, medications, Prescriptions given X 1. 19:13 Patient left the ED. vg1 Signatures: Oriana Urbina RN RN Preet Gutierrez, JHONATAN [employer] OB[employer]S REPAIRER pm1 Janet Johnston RN RN vg1
[2020-12-23 19:18] VITALS: TEMP 98.3; O2SAT 99
[2020-12-23 19:19] VITALS: BP 145/64
[2020-12-23 20:18] LABS: Anisocytosis 1+; Blood Morphology Comment NOTED (NOT SEEN); Hypochromasia 1+; Platelet Estimate INCR; Polychromasia SLIGHT; White Blood Cell Scan OK (OK)
== END 2020-12-23 19:13 | disposition home or self-care (01) ==
LOC: ER 15:35
DX: S31.104A Unspecified open wound of abdominal wall, left lower quadrant without penetration into peritoneal cavity, initial encounter (principal); D64.9 Anemia, unspecified
CPT/HCPCS: 85025; 80048; 36415; 96375; 96374; 99284; J2405

== ENCOUNTER 2020-12-26 08:46 | Inpatient (IN) | payer OTHER ==
--- OUTSIDE RECORDS SUMMARY | 2020-12-26 08:52 | XMS REPORT | Continuity of Care Document ---
:1975 Author Organization [facility] t Address [address] [place] [address] Care Team Providers Name Role Phone DR [...] Drug 5-04 Clear Allergie 00:00: [place] [address] [place] [address] NO KNOWN DA Active U 2000- [facility] CONTRAST 4-20 Clear MEDIA 00:00: [place] ALLERG [address] [place] [address] NO KNOWN DA Active U 2000-0 [facility] OTHER 4-20 Clear ALLERGIE 00:00: Green S [facility] No Known DA Active U 2000-0 [facility] Drug 4-20 Clear Allergie 00:00: [place] s [address] [place] [address] No Known DA Active U 2000-0 [facility] Food 4-20 Clear Allergie 00:00: [place] s [address] [place] [address] Medications This patient has no known medications. Procedures This patient has no known procedures. Encounters Start End Encounter Admission Attending Care Care Encounter Source Date/Time Date/Time Type Type Clinicians Facility Department ID 2019-07-15 2019-07-15 Emergency E [facility] [id number] 12:28:00 13:10:00 [facility] Results Test Description Test Time Test Comments Results Result Comments Source GLUBED 2020-10-12 12:17:00 Test Item Value Reference Range Interpretation Comme nts GLUBED (test code = GLUBED) 215 mg/dL 74-106 H Performed by certified compacting machine operator/tender at [facility] [id number] 12:17:00 Test Item Value Reference Range Interpretation Comments GLUBED (test code = 213 mg/dL 74-106 H Performe d by certified GLUBED) compacting machine operator/tender at [facility] [id number] 12:16:00 Test Item Value Reference Range Interpretation Comments GLUBED (test code = 156 mg/dL 74-106 H Performe d by certified GLUBED) compacting machine operator/tender at [facility] [id number] 12:15:00 Test Item Value Reference Range Interpretation Comments GLUBED (test code = 183 mg/dL 74-106 H Performe d by certified GLUBED) compacting machine operator/tender at [facility] [id number] 12:15:00 Test Item Value Reference Range Interpretation Comments GLUBED (test code 190 mg/dL 74-106 H Performed by certified = GLUBED) [facility] [id number] 12:14:00 Test Item Value Reference Range Interpretation Comments GLUBED (test code 212 mg/dL 74-106 H Performed by certified = GLUBED) compact[facility] [id number] 12:14:00 Test Item Value Reference Range Interpretation Comments GLUBED (test code = 263 mg/dL 74-106 H Performe d by certified GLUBED) compacting machine operator/tender at [facility] [id number] 16:11:00 Test Item Value Reference Range Interpretation Comments GLUBED (test code = 189 mg/dL 74-106 H Performe d by certified GLUBED) compacting machine operator/tender at [facility] [id number] 10:41:00 Test Item Value Reference Range Interpretation Comments GLUBED (test code = 182 mg/dL 74-106 H Performe d by certified GLUBED) compacting machine operator/tender at [facility] [id number] 20:48:00 Test Item Value Reference Range Interpretation Comments GLUBED (test code = 198 mg/dL 74-106 H Performe d by certified GLUBED) compacting machine operator/tender at [facility] [id number] 16:01:00 Test Item Value Reference Range Interpretation Comments GLUBED (test code = 177 mg/dL 74-106 H Performe d by certified GLUBED) compacting machine operator/tender at [facility] [id number] 11:42:00 Test Item Value Reference Range Interpretation Comments GLUBED (test code = 174 mg/dL 74-106 H Performe d by certified GLUBED) compacting machine operator/tender at [facility] CBC W/AUTO [id number] 06:22:00 Test Item Value Reference Range Interpretation [...] SCAN NEEDED (test code = MDIFF) DIFFERENTIAL [id number] 06:22:00 Test Item Value Reference Range Interpretation Comments STAIN ACCEPTABILITY (test STAIN ACCEPTABLE code = STN ACCEPTABLE) MORPHOLOGY COMMENT (test NORMAL code = MOC) PLATELET ESTIMATE (test code ADEQUATE = PLTEST) PLATELET MORPHOLOGY (test NORMAL code = PLTMORPH) BASIC METABOLIC [id number] 05:33:00 Test Item Value Reference Range Interpretation [...] >3 months. [Automated mess age] The system Collect.it generated this result transmitted ref erence range: >=60. Th e reference range was not used to int erpret this result as normal/abnormal . CREATININE (test code 0.90 mg/dL 0.7-1.3 N = CREAT) BUN/CREATININE RATIO 11.6 10-20 N (test code = BUN/CREA) CALCIUM (test code = 8.5 mg/dL 8.5-10.1 N CA) CBC W/AUTO [id number] 05:01:00 Test Item Value Reference Range Interpretation [...] SCAN NEEDED (test code = MDIFF) DIFFERENTIAL [id number] 05:01:00 Test Item Value Reference Range Interpretation Comments STAIN ACCEPTABILITY (test code = STN ACCEPTABLE) CABOT RINGS (test code = CAB) MORPHOLOGY COMMENT (test code = MOC) PLATELET ESTIMATE (test code = PLTEST) PLATELET MORPHOLOGY (test code = PLTMORPH) CBC W/AUTO [id number] 05:01:00 Test Item Value Reference Range Interpretation [...] SCAN NEEDED (test code = MDIFF) DIFFERENTIAL [id number] 05:01:00 Test Item Value Reference Range Interpretation Comments STAIN ACCEPTABILITY (test code = STN ACCEPTABLE) CABOT RINGS (test code = CAB) MORPHOLOGY COMMENT (test code = MOC) PLATELET ESTIMATE (test code = PLTEST) PLATELET MORPHOLOGY (test code = PLTMORPH) CBC W/AUTO [id number] 05:01:00 Test Item Value Reference Range Interpretation [...] SCAN NEEDED (test code = MDIFF) DIFFERENTIAL [id number] 05:01:00 Test Item Value Reference Range Interpretation Comments STAIN ACCEPTABILITY (test code = STN ACCEPTABLE) MORPHOLOGY COMMENT (test code = MOC) PLATELET ESTIMATE (test code = PLTEST) PLATELET MORPHOLOGY (test code = PLTMORPH) CBC W/AUTO [id number] 05:01:00 Test Item Value Reference Range Interpretation [...] SCAN NEEDED (test code = MDIFF) DIFFERENTIAL [id number] 05:01:00 Test Item Value Reference Range Interpretation Comments STAIN ACCEPTABILITY (test code = STN ACCEPTABLE) CABOT RINGS (test code = CAB) MORPHOLOGY COMMENT (test code = MOC) PLATELET ESTIMATE (test code = PLTEST) PLATELET MORPHOLOGY (test code = PLTMORPH) [id number] 21:00:00 Test Item Value Reference Range Interpretation Comments GLUBED (test code = 211 mg/dL 74-106 H Performe d by certified GLUBED) compacting machine operator/tender at [facility] [id number] 16:29:00 Test Item Value Reference Range Interpretation Comments GLUBED (test code = 158 mg/dL 74-106 H Performe d by certified GLUBED) compacting machine operator/tender at [facility] [id number] 11:57:00 Test Item Value Reference Range Interpretation Comments GLUBED (test code = 101 mg/dL 74-106 N Performe d by certified GLUBED) compacting machine operator/tender at [facility] CBC W/AUTO [id number] 09:46:00 Test Item Value Reference Range Interpretation [...] SCAN NEEDED (test code = MDIFF) DIFFERENTIAL [id number] 09:46:00 Test Item Value Reference Range Interpretation Comments STAIN ACCEPTABILITY (test STAIN ACCEPTABLE code = STN ACCEPTABLE) MORPHOLOGY COMMENT (test NORMAL code = MOC) PLATELET ESTIMATE (test code ADEQUATE = PLTEST) PLATELET MORPHOLOGY (test NORMAL code = PLTMORPH) [id number] 08:20:00 Test Item Value Reference Range Interpretation Comments GLUBED (test code = 257 mg/dL 74-106 H Performe d by certified GLUBED) compacting machine operator/tender at [facility] BASIC METABOLIC [id number] 07:03:00 Test Item Value Reference Range Interpretation [...] >3 months. [Automated mess age] The system Collect.it generated this result transmitted ref erence range: >=60. Th e reference range was not used to int erpret this result as normal/abnormal . CREATININE (test code 0.90 mg/dL 0.7-1.3 N = CREAT) BUN/CREATININE RATIO 11.7 10-20 N (test code = BUN/CREA) CALCIUM (test code = 8.6 mg/dL 8.5-10.1 N CA) CBC W/AUTO [id number] 05:51:00 Test Item Value Reference Range Interpretation [...] SCAN NEEDED (test code = MDIFF) DIFFERENTIAL [id number] 05:51:00 Test Item Value Reference Range Interpretation Comments STAIN ACCEPTABILITY (test code = STN ACCEPTABLE) CABOT RINGS (test code = CAB) MORPHOLOGY COMMENT (test code = MOC) PLATELET ESTIMATE (test code = PLTEST) PLATELET MORPHOLOGY (test code = PLTMORPH) CBC W/AUTO [id number] 05:51:00 Test Item Value Reference Range Interpretation [...] SCAN NEEDED (test code = MDIFF) DIFFERENTIAL [id number] 05:51:00 Test Item Value Reference Range Interpretation Comments STAIN ACCEPTABILITY (test code = STN ACCEPTABLE) CABOT RINGS (test code = CAB) MORPHOLOGY COMMENT (test code = MOC) PLATELET ESTIMATE (test code = PLTEST) PLATELET MORPHOLOGY (test code = PLTMORPH) CBC W/AUTO [id number] 05:51:00 Test Item Value Reference Range Interpretation [...] SCAN NEEDED (test code = MDIFF) DIFFERENTIAL [id number] 05:51:00 Test Item Value Reference Range Interpretation Comments STAIN ACCEPTABILITY (test code = STN ACCEPTABLE) MORPHOLOGY COMMENT (test code = MOC) PLATELET ESTIMATE (test code = PLTEST) PLATELET MORPHOLOGY (test code = PLTMORPH) CBC W/AUTO [id number] 05:51:00 Test Item Value Reference Range Interpretation [...] SCAN NEEDED (test code = MDIFF) DIFFERENTIAL [id number] 05:51:00 Test Item Value Reference Range Interpretation Comments STAIN ACCEPTABILITY (test code = STN ACCEPTABLE) CABOT RINGS (test code = CAB) MORPHOLOGY COMMENT (test code = MOC) PLATELET ESTIMATE (test code = PLTEST) PLATELET MORPHOLOGY (test code = PLTMORPH) [id number] 16:50:00 Test Item Value Reference Range Interpretation Comments GLUBED (test code 215 mg/dL 74-106 H Performed by certified = GLUBED) [facility] [id number] 12:01:00 Test Item Value Reference Range Interpretation Comments GLUBED (test code 187 mg/dL 74-106 H Performed by certified = GLUBED) compacting machine [facility] [id number] 20:23:00 Test Item Value Reference Range Interpretation Comments GLUBED (test code = 232 mg/dL 74-106 H Performe d by certified GLUBED) compacting machine operator/tender at [facility] [id number] 16:36:00 Test Item Value Reference Range Interpretation Comments GLUBED (test code = 180 mg/dL 74-106 H Performe d by certified GLUBED) compacting machine operator/tender at [facility] [id number] 12:14:00 Test Item Value Reference Range Interpretation Comments GLUBED (test code = 221 mg/dL 74-106 H Performe d by certified GLUBED) compacting machine operator/tender at [facility] [id number] 08:41:00 Test Item Value Reference Range Interpretation Comments GLUBED (test code = 228 mg/dL 74-106 H Performe d by certified GLUBED) compacting machine operator/tender at [facility] CBC W/AUTO [id number] 06:22:00 Test Item Value Reference Range Interpretation [...] SCAN NEEDED (test code = MDIFF) DIFFERENTIAL [id number] 06:22:00 Test Item Value Reference Range Interpretation Comments STAIN ACCEPTABILITY (test STAIN ACCEPTABLE code = STN ACCEPTABLE) POLYCHROMASIA (test code = 1+ POLC) PLATELET ESTIMATE (test code ADEQUATE = PLTEST) PLATELET MORPHOLOGY (test NORMAL code = PLTMORPH) BASIC METABOLIC [id number] 05:57:00 Test Item Value Reference Range Interpretation [...] >3 months. [Automated mess age] The system Collect.it generated this result transmitted ref erence range: >=60. Th e reference range was not used to int erpret this result as normal/abnormal . CREATININE (test code 0.80 mg/dL 0.7-1.3 N = CREAT) BUN/CREATININE RATIO 11.9 10-20 N (test code = BUN/CREA) CALCIUM (test code = 8.3 mg/dL 8.5-10.1 L CA) CBC W/AUTO [id number] 05:37:00 Test Item Value Reference Range Interpretation [...] SCAN NEEDED (test code = MDIFF) DIFFERENTIAL [id number] 05:37:00 Test Item Value Reference Range Interpretation Comments STAIN ACCEPTABILITY (test code = STN ACCEPTABLE) CABOT RINGS (test code = CAB) MORPHOLOGY COMMENT (test code = MOC) PLATELET ESTIMATE (test code = PLTEST) PLATELET MORPHOLOGY (test code = PLTMORPH) CBC W/AUTO [id number] 05:37:00 Test Item Value Reference Range Interpretation [...] SCAN NEEDED (test code = MDIFF) DIFFERENTIAL [id number] 05:37:00 Test Item Value Reference Range Interpretation Comments STAIN ACCEPTABILITY (test code = STN ACCEPTABLE) CABOT RINGS (test code = CAB) MORPHOLOGY COMMENT (test code = MOC) PLATELET ESTIMATE (test code = PLTEST) PLATELET MORPHOLOGY (test code = PLTMORPH) CBC W/AUTO [id number] 05:37:00 Test Item Value Reference Range Interpretation [...] SCAN NEEDED (test code = MDIFF) DIFFERENTIAL [id number] 05:37:00 Test Item Value Reference Range Interpretation Comments STAIN ACCEPTABILITY (test code = STN ACCEPTABLE) MORPHOLOGY COMMENT (test code = MOC) PLATELET ESTIMATE (test code = PLTEST) PLATELET MORPHOLOGY (test code = PLTMORPH) CBC W/AUTO [id number] 05:37:00 Test Item Value Reference Range Interpretation [...] SCAN NEEDED (test code = MDIFF) DIFFERENTIAL [id number] 05:37:00 Test Item Value Reference Range Interpretation Comments STAIN ACCEPTABILITY (test code = STN ACCEPTABLE) CABOT RINGS (test code = CAB) MORPHOLOGY COMMENT (test code = MOC) PLATELET ESTIMATE (test code = PLTEST) PLATELET MORPHOLOGY (test code = PLTMORPH) [id number] 16:06:00 Test Item Value Reference Range Interpretation Comments GLUBED (test code 237 mg/dL 74-106 H Performed by certified = GLUBED) [facility] [id number] 12:35:00 Test Item Value Reference Range Interpretation Comments GLUBED (test code 271 mg/dL 74-106 H Performed by certified = GLUBED) compacting machine [facility] [id number] 08:08:00 Test Item Value Reference Range Interpretation Comments GLUBED (test code 233 mg/dL 74-106 H Performed by certified = GLUBED) compacting machine [facility] CBC W/AUTO [id number] 07:56:00 Test Item Value Reference Range Interpretation [...] SCAN NEEDED (test code = MDIFF) DIFFERENTIAL [id number] 07:56:00 Test Item Value Reference Range Interpretation Comments STAIN ACCEPTABILITY (test STAIN ACCEPTABLE code = STN ACCEPTABLE) MORPHOLOGY COMMENT (test NORMAL code = MOC) PLATELET ESTIMATE (test code ADEQUATE = PLTEST) PLATELET MORPHOLOGY (test NORMAL code = PLTMORPH) COMPREHENSIVE METABOLIC [id number] 05:54:00 Test Item Value Reference Range Interpretation [...] >3 months. [Automated mess age] The system Collect.it generated this result transmitted ref erence range: [...] ALKP) to change in reagent. CBC W/AUTO [id number] 05:12:00 Test Item Value Reference Range Interpretation [...] SCAN NEEDED (test code = MDIFF) DIFFERENTIAL [id number] 05:12:00 Test Item Value Reference Range Interpretation Comments STAIN ACCEPTABILITY (test code = STN ACCEPTABLE) MORPHOLOGY COMMENT (test code = MOC) PLATELET ESTIMATE (test code = PLTEST) PLATELET MORPHOLOGY (test code = PLTMORPH) CBC W/AUTO [id number] 05:12:00 Test Item Value Reference Range Interpretation [...] SCAN NEEDED (test code = MDIFF) DIFFERENTIAL [id number] 05:12:00 Test Item Value Reference Range Interpretation Comments STAIN ACCEPTABILITY (test code = STN ACCEPTABLE) CABOT RINGS (test code = CAB) MORPHOLOGY COMMENT (test code = MOC) PLATELET ESTIMATE (test code = PLTEST) PLATELET MORPHOLOGY (test code = PLTMORPH) CBC W/AUTO [id number] 05:11:00 Test Item Value Reference Range Interpretation [...] SCAN NEEDED (test code = MDIFF) DIFFERENTIAL [id number] 05:11:00 Test Item Value Reference Range Interpretation Comments STAIN ACCEPTABILITY (test code = STN ACCEPTABLE) CABOT RINGS (test code = CAB) MORPHOLOGY COMMENT (test code = MOC) PLATELET ESTIMATE (test code = PLTEST) PLATELET MORPHOLOGY (test code = PLTMORPH) CBC W/AUTO [id number] 05:11:00 Test Item Value Reference Range Interpretation [...] SCAN NEEDED (test code = MDIFF) DIFFERENTIAL [id number] 05:11:00 Test Item Value Reference Range Interpretation Comments STAIN ACCEPTABILITY (test code = STN ACCEPTABLE) CABOT RINGS (test code = CAB) MORPHOLOGY COMMENT (test code = MOC) PLATELET ESTIMATE (test code = PLTEST) PLATELET MORPHOLOGY (test code = PLTMORPH) [id number] 20:37:00 Test Item Value Reference Range Interpretation Comments GLUBED (test code = 297 mg/dL 74-106 H Performe d by certified GLUBED) compacting machine operator/tender at [facility] URINALYSIS [id number] 17:21:00 Test Item Value Reference Range Interpretation [...] (test code = AMORU) Urine Source? Clean [id number] 16:41:00 Test Item Value Reference Range Interpretation Comments GLUBED (test code = 234 mg/dL 74-106 H Performe d by certified GLUBED) compacting machine operator/tender at [facility] COMPREHENSIVE METABOLIC [id number] 12:38:00 Test Item Value Reference Range Interpretation [...] >3 months. [Automated mess age] The system Collect.it generated this result transmitted ref erence range: [...] range due ALKP) to change in reagent. [id number] 11:38:00 Test Item Value Reference Range Interpretation Comments GLUBED (test code = 237 mg/dL 74-106 H Performe d by certified GLUBED) compacting machine operator/tender at [facility] LIPID PROFILE (CORONARY RISK)2020-08-30 09:41:00 Test Item [...] LDL (test 115 mg/dL 100-129 N RN LIDIA SUAZO, CONTACT code = LDL) PHYSICIAN IMMED IATELY [...] is a direct measurement.=== ====== THYROID STIMULATING [id number] 09:41:00 Test Item Value Reference Range Interpretation Comments THYROID STIMULATING 2.255 uIU/mL 0.36-3.74 N TSH REFE RENCE HORMONE (test code = RANGES: EUTHYROID: TSH) 0.35 - 4.3 mIU/mL HYPO : > 5.5 mIU/mL HYPER : < 0.35 mIU/mL CBC W/AUTO [id number] 09:11:00 Test Item Value Reference Range Interpretation [...] SCAN NEEDED (test code = MDIFF) DIFFERENTIAL [id number] 09:11:00 Test Item Value Reference Range Interpretation Comments STAIN ACCEPTABILITY (test STAIN ACCEPTABLE code = STN ACCEPTABLE) POLYCHROMASIA (test code = 1+ POLC) HYPOCHROMIA (test code = 1+ HYPO) ANISOCYTOSIS (test code = 1+ ANISO) MICROCYTOSIS (test code = 1+ MICR) PLATELET ESTIMATE (test code ADEQUATE = PLTEST) PLATELET MORPHOLOGY (test NORMAL code = PLTMORPH) [id number] 08:40:00 Test Item Value Reference Range Interpretation Comments GLYCOSYLATED HEMOGLOBIN 11.0 % HbA1 JOYCEG CARLO (HA1C) (test code = DIAGNOSI S: HbA1C GLYHGB) (%) ---- ------ Diab etic >6.4Prediabetes 5.7 - 6.4Normal <5.7 ESTIMATED AVERAGE 269 MG/DL GLUCOSE (test code = EAG) CBC W/AUTO [id number] 08:23:00 Test Item Value Reference Range Interpretation [...] SCAN NEEDED (test code = MDIFF) DIFFERENTIAL [id number] 08:23:00 Test Item Value Reference Range Interpretation Comments STAIN ACCEPTABILITY (test code = STN ACCEPTABLE) CABOT RINGS (test code = CAB) MORPHOLOGY COMMENT (test code = MOC) PLATELET ESTIMATE (test code = PLTEST) PLATELET MORPHOLOGY (test code = PLTMORPH) CBC W/AUTO [id number] 08:23:00 Test Item Value Reference Range Interpretation [...] SCAN NEEDED (test code = MDIFF) DIFFERENTIAL [id number] 08:23:00 Test Item Value Reference Range Interpretation Comments STAIN ACCEPTABILITY (test code = STN ACCEPTABLE) MORPHOLOGY COMMENT (test code = MOC) PLATELET ESTIMATE (test code = PLTEST) PLATELET MORPHOLOGY (test code = PLTMORPH) CBC W/AUTO [id number] 08:22:00 Test Item Value Reference Range Interpretation [...] SCAN NEEDED (test code = MDIFF) DIFFERENTIAL [id number] 08:22:00 Test Item Value Reference Range Interpretation Comments STAIN ACCEPTABILITY (test code = STN ACCEPTABLE) CABOT RINGS (test code = CAB) MORPHOLOGY COMMENT (test code = MOC) PLATELET ESTIMATE (test code = PLTEST) PLATELET MORPHOLOGY (test code = PLTMORPH) CBC W/AUTO [id number] 08:22:00 Test Item Value Reference Range Interpretation [...] SCAN NEEDED (test code = MDIFF) DIFFERENTIAL [id number] 08:22:00 Test Item Value Reference Range Interpretation Comments STAIN ACCEPTABILITY (test code = STN ACCEPTABLE) CABOT RINGS (test code = CAB) MORPHOLOGY COMMENT (test code = MOC) PLATELET ESTIMATE (test code = PLTEST) PLATELET MORPHOLOGY (test code = PLTMORPH) - CT ABD PELVIS [id number] 20:38:00 [facility])Name: RAN EVERETT : 1975 Sex: M Name: RAN EVERETT [facility] : Age/S: 44 / M [address] [facility] Unit #: [id number] Loc: [place] [address] Phys: Ban Arnold NP Acct: [id number] Dis Date: Status: REG ER PHONE #: [phone] Exam Date: 08/29/20202022 FAX #: [phone] 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, isidro EXAMS: CPT CODE: [id number] CT ABD PELVIS W/CONT [id number] EXAM: CT of the abdomen and pelvis [...] CT CTDI: DLP: Trnscb Date/Time: 08/29/2020 (2037) [email or web address] Orig Print D/T: S: 08/29/2020 (2040) PAGE 1 Signed Report- XR CHEST 1 V 2020-08-29 20:14:00 [facility])Name: RAN EVERETT : 1975 Sex: M FAX: Ban Arnold NP [place]: St: REG Name: RAN EVERETT [facility] : 1975 Age/S: 44/M [address] [facility] Unit #: [id number] Loc: [place] [address] Phys: Ban Arnold INTERLOCKER MAINTAINER Acct: [id number] Dis Date: Status: REG ER PHONE #: [phone] Exam Date: 08/29/2020 191 FAX #: [phone] Reason: CODE SEPSIS EXAMS: CPT CODE: [id number] XR CHEST 1 V 28883 EXAM: Chest X- ray, 1 view; CLINICAL HISTORY: Code sepsis; FINDINGS: The lungs are clear, no infiltrates, no edema; no effusions; no pneumothorax; normal cardiomediastinal silhouette. Old, consolidated fractures of the 6th and 7th ribs on the right. IMPRESSION: No evidence of active cardiopulmonary disease. Location code: at 2013 Reported and signed by: Pillo Basilio M.D. CC: Ban Arnold NP Technologist: Heather Rush RT(R) Trnscrd Date/Time/By: 08/29/2020 (2013) : By: SabihaGRW Orig Print D/T: S: 08/29/2020 (2017) PAGE 1 Signed ReportCOVID 19 INHOUSE [id number] 20:02:00 Test Item Value Reference Range Interpretation Comments COVID 19 INHOUSE AG (test code = NEGATIVE NEGATIVE [id number]) BASIC METABOLIC [id number] 19:53:00 Test Item Value Reference Range Interpretation [...] >3 months. [Automated mess age] The system Collect.it generated this result transmitted ref erence range: >=60. Th e reference range was not used to int erpret this result as normal/abnormal . CREATININE (test 1.00 mg/dL 0.7-1.3 N code = CREAT) BUN/CREATININE RATIO 11.6 10-20 N (test code = BUN/CREA) CALCIUM (test code = 8.5 mg/dL 8.5-10.1 N CA) HEPATIC FUNCTION [id number] 19:53:00 Test Item Value Reference Range Interpretation [...] range due ALKP) to change in reagent. [id number] 19:53:00 Test Item Value Reference Range Interpretation Comments TROPONIN-I (test code = TROPI) < 0.006 ng/mL 0-0.045 N B-TYPE NATRIURETIC [id number] 19:52:00 Test Item Value Reference Range Interpretation Comments B-TYPE NATRIURETIC PEPTIDE 20.0 pgram/mL 0-100 N (test code = BNP) LACTIC [id number] 19:33:00 Test Item Value Reference Range Interpretation Comments LACTIC ACID (test code = LACT) 1.3 mmol/L 0.4-1.9 N CBC W/AUTO [id number] 19:15:00 Test Item Value Reference Range Interpretation [...] code = 0.00 K/mm3 0.0-0.1 N NRBC#) Rowe [id number] 07:04:53 Test Item Value Reference Range Interpretation Comments Rowe Level (test code = 0.52 mmol/L 0.60-1.20 L Rowe Level) Rowe [id number] 06:31:16 Test Item Value Reference Range Interpretation Comments Rowe Level (test code = 0.39 mmol/L 0.60-1.20 L Rowe Level) RPR [id number] 03:58:40 Test Item Value Reference Range Interpretation [...] = 08/26/2019 N Expiration Dt) Thyroid Stimulating [id number] 02:50:00 Test Item Value Reference Range Interpretation Comments TSH (test code = TSH) 1.590 mIU/mL 0.270-4.200 Lipid [id number] 02:33:22 Test Item Value Reference Range Interpretation Comments Cholesterol Total 197 mg/dL 0-200 RISK OF HE ART (test code = DISEASEPublishe d by Cholesterol Total) [place] [employer] Lashawn lyte Optimal Borderl ine [...] LDL/HDL Ratio=L DL Calc/HDL Chol Comprehensive Metabolic [id number] 18:09:30 Test Item Value Reference Range Interpretation [...] A/G 1.6 ratio N Ratio) Comprehensive Metabolic [id number] 18:09:30 Test Item Value Reference Range Interpretation [...] National Kidney Foundation, http://nkdep.ni h.gov Comprehensive Metabolic [id number] 18:09:30 Test Item Value Reference Range Interpretation [...] ag e have not been validated by [facility] MDRD study and should be interpreted wit [...] account, if the information is provided. If e race is not provided, and t he patient is -Selina n, multiply by 1.2 12. If sex is not provided, and t he patient is fema le, multiply by 0.7 42. Results for pat ients <18 years of ag e have not been validated by [facility] MDRD study and should be interpreted wit h caution. eGFR R esult Interpretation: eGFR > or = 60 is in the Normal RangeeGF R < 60 may mean kid wong diseaseeGFR < 1 5 may mean kidney failure Rang es recommended by the National Kidney Foundation, http://nkdep.ni h.gov Complete Blood Count with [id number] 17:49:02 Test Item Value Reference Range Interpretation [...] code = IPF) 0 % N Automated [id number] 17:49:02 Test Item Value Reference Range Interpretation Comments Neutro Auto (test code = Neutro 60.9 % 36.0-70.0 Auto) Lymph Auto (test code = Lymph Auto) 28.2 % 12.0-44.0 Osage Auto (test code = Osage Auto) 8.0 % 0.0-11.0 Eos, Auto (test code = Eos, Auto) 1.7 % 0.0-7.0 Basophil Auto (test code = Basophil 0.7 % 0.0-2.0 Auto) Neutro Absolute (test code = Neutro 8.0 x10 1.6-7.4 H Absolute) Lymph Absolute (test code = Lymph 3.71 x10 .50-4.60 Absolute) Osage Absolute (test code = Osage 1.06 x10 .00-1.20 Absolute) Eos Absolute (test code = Eos 0.23 x10 0.00-0.74 Absolute) Baso Absolute (test code = Baso 0.09 x10 0.00-0.21 Absolute) IG [id number] 17:49:02 Test Item Value Reference Range Interpretation Comments IG (test code = IG) 0.5 % 0.0-5.0 IG Abs (test code = IG Abs) 0 x10 N Comprehensive Metabolic [id number] 13:30:37 Test Item Value Reference Range Interpretation [...] ratio N = A/G Ratio) Comprehensive Metabolic [id number] 13:30:37 Test Item Value Reference Range Interpretation [...] the National Kidney Foundation, http://nkdep.ni h.gov Alcohol [id number] 13:30:37 Test Item Value Reference Range Interpretation Comments Ethanol Level (test <0.00 g/dL 0.00-0.01 Intoxica annita 0.080 g/dL code = Ethanol or more Level) Ethanol Inst (test <0 N code = Ethanol Inst) Comprehensive Metabolic [id number] 13:30:37 Test Item Value Reference Range Interpretation [...] ag e have not been validated by [facility] MDRD study and should be interpreted wit [...] ag e have not been validated by [facility] MDRD study and should be interpreted wit h caution. eGFR R esult Interpretation: eGFR > or = 60 is in the Normal RangeeGF R < 60 may mean kid wong diseaseeGFR < 1 5 may mean kidney failure Rang es recommended by the National Kidney Foundation, http://nkdep.ni h.gov Drugs of Abuse Urine [id number] 13:26:52 Test Item Value Reference Range Interpretation [...] Cannabinoid Screen Ur) Complete Blood Count with [id number] 13:17:47 Test Item Value Reference Range Interpretation [...] code = IPF) 0 % N Automated [id number] 13:17:47 Test Item Value Reference Range Interpretation Comments Neutro Auto (test code = Neutro 67.8 % 36.0-70.0 Auto) Lymph Auto (test code = Lymph Auto) 22.2 % 12.0-44.0 Osage Auto (test code = Osage Auto) 7.3 % 0.0-11.0 Eos, Auto (test code = Eos, Auto) 1.4 % 0.0-7.0 Basophil Auto (test code = Basophil 0.7 % 0.0-2.0 Auto) Neutro Absolute (test code = Neutro 10.6 x10 1.6-7.4 H Absolute) Lymph Absolute (test code = Lymph 3.48 x10 .50-4.60 Absolute) Osage Absolute (test code = Osage 1.14 x10 .00-1.20 Absolute) Eos Absolute (test code = Eos 0.22 x10 0.00-0.74 Absolute) Baso Absolute (test code = Baso 0.11 x10 0.00-0.21 Absolute) IG [id number] 13:17:47 Test Item Value Reference Range Interpretation Comments IG (test code = IG) 0.6 % 0.0-5.0 IG Abs (test code = IG Abs) 0 x10 N
[2020-12-26] MEDS ORDERED: ONDANSETRON 4 MG/2 ML VIAL ONE (09:23)
[2020-12-26] MEDS ORDERED: NA CHLORIDE 0.9% 1,000 ML ONE (09:23)
[2020-12-26] MEDS ORDERED: NA CHLORIDE 0.9% 100 ML ONE (09:23)
[2020-12-26] MEDS ORDERED: MORPHINE 4 MG/ML SYR ONE (09:23)
[2020-12-26] MEDS ORDERED: PIPERACIL/TAZO 3.375 GM VIAL IV ONE (09:24)
[2020-12-26 09:31] LABS: Protime INR 1.34
[2020-12-26 09:45] LABS: ALT/SGPT 12 U/L (12-78); AST/SGOT 8 U/L (15-37); Albumin 2.1 g/dL (3.4-5.0); Alkaline Phosphatase 86 U/L (45-117); BUN Blood Urea Nitrogen 18 mg/dL (7-18); Bicarbonate 28 mmol/L (21-32); Bilirubin Direct < 0.1 mg/dL (0-0.2); Bilirubin Total 0.3 mg/dL (0.2-1.0); Glucose Level 260 mg/dL (74-106); Magnesium 1.9 mg/dL (1.8-2.4); NT PRO-BNP 473 pg/mL (<125); Protein, Total 8.4 g/dL (6.4-8.2); Sodium Level 135 mmol/L (136-145); Troponin (Emerg Dept Use Only) < 0.02 ng/mL (0.0-0.045)
--- NOTE | 2020-12-26 09:45 | RAD REPORT ---
EXAM DESCRIPTION: Woody Single View12/26/2020 9:15 am CLINICAL HISTORY: Cough COMPARISON: November 27, 2020 FINDINGS: The lungs appear clear of acute infiltrate. The heart is mildly enlarged IMPRESSION: No acute abnormalities displayed
[2020-12-26 09:57] LABS: Absolute Lymphocytes (CBC) 2.3 K/uL (0.7-4.9); Hematocrit 23.8 % (39.6-49.0); Lymphocytes % 15.9 % (15.3-44.8); MPV 6.6 fL (7.6-11.3); RBC Red Blood Cell Count 3.75 M/uL (4.33-5.43)
--- NOTE | 2020-12-26 10:15 | RAD REPORT ---
EXAM DESCRIPTION: CT - Abdomen Pelvis W Contrast - 12/26/2020 9:36 am CLINICAL HISTORY: Abdominal pain COMPARISON: October 2020 TECHNIQUE: Computed axial tomography of the abdomen pelvis was obtained. 100 cc Isovue-300 was admin istered intravenously. Oral contrast was not requested which limits evaluation of bowel. All CT scans are performed using dose optimization technique as appropriate and may include automated exposure control or mA/KV adjustment according to patient size. FINDINGS: The liver, spleen, pancreas, adrenal and kidneys appear unremarkable. There is no evidence of diverticulitis. Normal appendix 13 x 8 x 12 (cc by AP by trans) ulcerating mass is present within predominately the subcutaneous tiss ue left inguinal region extending superiorly. Several adjacent enlarged lymph nodes are present. Mild right inguinal lymphadenopathy. Small right inguinal hernia contains fat IMPRESSION: 13 centimeter ulcerating mass predominantly left inguinal region likely neoplasm
--- NOTE | 2020-12-26 10:37 | EDPHYS ---
Physician Documentation [facility] Name: Yassine Guerrero Jr Age: 45 yrs Sex: Male : 1975 Arrival Date: 12/26/2020 Time: 08:47 Bed 4 Private MD: ED Physician Beto Cortez HPI: 12/26 08:53 This 45 yrs old Male presents to ER via Unassigned with complaints of left richardson groin mass, bleeding. 08:53 The patient presents with decreased range of motion, pain, that is acute. The richardson complaints affect the left upper thigh. Context: The problem was sustained at an unknown site. Onset: The symptoms/episode began/occurred this morning. Modifying factors: The symptoms are alleviated by nothing. the symptoms are aggravated by nothing. Associated signs and symptoms: The patient has no apparent associated signs or symptoms. Treatment prior to arrival includes: no previous treatment. Severity of symptoms: At their worst the symptoms were moderate, in the emergency department the symptoms are unchanged. The patient has not experienced similar symptoms in the past. Historical: - Home Meds: 10:07 gabapentin Oral [Active]; Metformin Oral [Active]; Glipizide Oral [Active]; tr6 - PMHx: 10:07 Bipolar disorder; CPVC; HPV; PTSD; Rheumatoid Arthritis; tr6 - PSHx: 10:07 Lymphnode removal; tr6 - Immunization history:: Adult Immunizations up to date, Client reports having NOT received the Covid vaccine. - Family history:: not pertinent. - Social history:: Smoking status: . ROS: 08:53 Constitutional: Negative for fever, chills, and weight loss, Eyes: Negative for injury, richardson pain, redness, and discharge, ENT: Negative for injury, pain, and discharge, Neck: Negative for injury, pain, and swelling, Cardiovascular: Negative for chest pain, palpitations, and edema, Respiratory: Negative for shortness of breath, cough, wheezing, and pleuritic chest pain, Back: Negative for injury and pain, : Negative for injury, bleeding, discharge, and swelling, Skin: Negative for injury, rash, and discoloration, Neuro: Negative for headache, weakness, numbness, tingling, and seizure, Psych: Negative for depression, anxiety, suicide ideation, homicidal ideation, and hallucinations, Allergy/Immunology: Negative for hives, rash, and allergies, Endocrine: Negative for neck swelling, polydipsia, polyuria, polyphagia, and marked weight changes, Hematologic/Lymphatic: Negative for swollen nodes, abnormal bleeding, and unusual bruising. 08:53 Abdomen/GI: Positive for abdominal pain, of the left lower quadrant. 08:53 MS/extremity: Positive for decreased range of motion, pain, swelling, tenderness, of the left upper thigh. Exam: 08:53 Constitutional: This is a well developed, well nourished patient who is awake, alert, richardson and in no acute distress. Head/Face: Normocephalic, atraumatic. Eyes: Pupils equal round and reactive to light, extra-ocular motions intact. Lids and lashes normal. Conjunctiva and sclera are non-icteric and not injected. Cornea within normal limits. Periorbital areas with no swelling, redness, or edema. ENT: Nares patent. No nasal discharge, no septal abnormalities noted. Tympanic membranes are normal and external auditory canals are clear. Oropharynx with no redness, swelling, or masses, exudates, or evidence of obstruction, uvula midline. Mucous membranes moist. Neck: Trachea midline, no thyromegaly or masses palpated, and no cervical lymphadenopathy. Supple, full range of motion without nuchal rigidity, or vertebral point tenderness. No Meningismus. Chest/axilla: Normal chest wall appearance and motion. Nontender with no deformity. No lesions are appreciated. Respiratory: Lungs have equal breath sounds bilaterally, clear to auscultation and percussion. No rales, rhonchi or wheezes noted. No increased work of breathing, no retractions or nasal flaring. Back: No spinal tenderness. No costovertebral tenderness. Full range of motion. Male : Normal genitalia with no discharge or lesions. Skin: Warm, dry with normal turgor. Normal color with no rashes, no lesions, and no evidence of cellulitis. Neuro: Awake and alert, GCS 15, oriented to person, place, time, and situation. Cranial nerves II-XII grossly intact. Motor strength 5/5 in all extremities. Sensory grossly intact. Cerebellar exam normal. Normal gait. Psych: Awake, alert, with orientation to person, place and time. Behavior, mood, and affect are within normal limits. 08:53 Cardiovascular: Rate: tachycardic, actual rate is 105 bpm, Rhythm: regular, Pulses: no pulse deficits are appreciated, Edema: is not appreciated. Vital Signs: 08:54 BP 185 / 166; tr6 10:06 BP 119 / 75; Pulse 112; Resp 18; Temp 97.9; Pulse Ox 96% ; tr6 MDM: 08:49 Patient medically screened. [facility] 08:56 Differential diagnosis: contusion, abrasion. Data reviewed: vital signs, nurses notes, [facility] lab test result(s), EKG, radiologic studies, CT scan, plain films. Data interpreted: monitor and storage bin tender: rate is 105 beats/min, rhythm is regular, Pulse oximetry: on room air is 100 %. Test interpretation: by ED physician or midlevel provider: ECG, plain radiologic studies. Counseling: I had a detailed discussion with the patient and/or guardian regarding: the historical points, exam findings, and any diagnostic results supporting the discharge/admit diagnosis, lab results, radiology results. 12/26 08:53 Order name: Basic Metabolic Panel; Complete Time: 10:32 [facility] 12/26 08:53 Order name: CBC with Diff [facility] 12/26 08:53 Order name: LFT's; Complete Time: 10:32 [facility] 12/26 08:53 Order name: Magnesium; Complete Time: 10:32 [facility] 12/26 08:53 Order name: NT PRO-BNP; Complete Time: 10:32 [facility] 12/26 08:53 Order name: PT-INR; Complete Time: 10:32 [facility] 12/26 08:53 Order name: Troponin (emerg Dept Use Only); Complete Time: 10:32 [facility] 12/26 08:53 Order name: Type And Screen [facility] 12/26 09:46 Order name: CREATININE WHOLE BLOOD; Complete Time: 10:32 [facility] 12/26 10:31 Order name: SARS-COV-2 RT PCR; Complete Time: 10:32 [facility] 12/26 10:36 Order name: Bb Add On aa5 12/26 10:44 Order name: Packed RBC Leukored [facility] 12/26 11:28 Order name: ABG [facility] 12/26 08:53 Order name: XRAY Chest (1 view); Complete Time: 10:32 [facility] 12/26 08:53 Order name: EKG; Complete Time: 08:54 [facility] 12/26 08:53 Order name: Cardiac monitoring; Complete Time: 09:36 [facility] 12/26 08:53 Order name: EKG - Nurse/Tech; Complete Time: 10:06 [facility] 12/26 08:53 Order name: IV Saline Lock; Complete Time: 09:36 [facility] 12/26 08:53 Order name: CT Abd/Pelvis - IV Contrast Only; Complete Time: 10:32 [facility] 12/26 11:45 Order name: BIPAP [facility] 12/26 12:00 Order name: CONS Physician Consult [facility] 12/26 12:03 Order name: Hemoglobin A1c [facility] 12/26 08:53 Order name: Labs collected and sent; Complete Time: 09:36 [facility] 12/26 08:53 Order name: O2 Per Protocol; Complete Time: 08:54 [facility] 12/26 08:53 Order name: O2 Sat Monitoring; Complete Time: 08:54 [facility] 12/26 10:33 Order name: Transfuse; Complete Time: 11:30 [facility] Administered Medications: 09:35 Drug: Zofran (Ondansetron) 4 mg Route: IVP; Site: right antecubital; tr6 09:36 Drug: NS 0.9% 1000 ml Route: IV; Rate: 125 ml/hr; Site: right antecubital; tr6 09:36 Drug: morphine 4 mg Route: IVP; Site: right antecubital; tr6 09:36 Drug: Zosyn (piperacillin-tazobactam) 3.375 grams Route: IVPB; Infused Over: 60 mins; tr6 Site: right antecubital; 11:32 Drug: Dilaudid (HYDROmorphone) 0.5 mg Route: IVP; Site: right antecubital; tr6 Disposition Summary: 12/26/20 10:37 Hospitalization Ordered Hospitalization Status: Inpatient Admission richardson Provider: Lito Chao cha Location: Telemetry/MedSurg (Inpatient) richardson Condition: Fair richardson Problem: new richardson Symptoms: have improved richardson Bed/Room Type: Standard [facility] Room Assignment: 224(12/26/20 12:13) bd Diagnosis - Anemia, unspecified richardson - Pain in left leg - left groin malignant mass richardson - Elevated white blood cell count richardson - Acute and chronic respiratory failure with hypercapnia richardson Forms: - Medication Reconciliation Form richardson - SBAR form richardson Signatures: Dispatcher [employer] [facility] DirrimColleen Corey, MD MD cha Roszak, Josh, PA PA [id number] Rosa Leigh RN RN tr6 Corrections: (The following items were deleted from the chart) 09:36 09:18 CORONAVIRUS+Z ordered. EDMS EDMS 12:13 10:37 richardson cotton
--- NOTE | 2020-12-26 10:37 | ER ---
Nurse's Notes [facility] Name: Yassine Guerrero Jr Age: 45 yrs Sex: Male : 1975 Arrival Date: 12/26/2020 Time: 08:47 Bed 4 Private MD: Diagnosis: Anemia, unspecified;Pain in left leg-left groin malignant mass;Elevated white blood cell count;Acute and chronic respiratory failure with hypercapnia Presentation: 12/26 08:54 Chief complaint: EMS states: inoperable tumor to left upper thigh/groin. pt scheduled tr6 for biopsy today \T\ 10a, but tumor began bleeding this morning. Coronavirus screen: At this time, unable to obtain information related to travel outside the [place] Ebola Screen: No symptoms or risks identified at this time. Initial Sepsis Screen: Does the patient meet any 2 criteria? Yes Does the patient have a suspected source of infection? Yes: Skin breakdown/wound. Risk Assessment: Do you want to hurt yourself or someone else? Patient reports no desire to harm self or others. Onset of symptoms is unknown. 08:54 Method Of Arrival: EMS: [facility] tr6 08:54 Acuity: IRINEO 2 tr6 Triage Assessment: 10:07 General: Appears. tr6 10:07 General: Appears obese, unkempt, Behavior is calm, cooperative, appropriate for age. tr6 10:08 Pain: Complains of pain in left leg. tr6 Historical: - Home Meds: 10:07 gabapentin Oral [Active]; Metformin Oral [Active]; Glipizide Oral [Active]; tr6 - PMHx: 10:07 Bipolar disorder; CPVC; HPV; PTSD; Rheumatoid Arthritis; tr6 - PSHx: 10:07 Lymphnode removal; tr6 - Immunization history:: Adult Immunizations up to date, Client reports having NOT received the Covid vaccine. - Family history:: not pertinent. - Social history:: Smoking status: . Screenin:56 Abuse screen: Denies threats or abuse. Denies injuries from another. Nutritional tr6 screening: No deficits noted. Tuberculosis screening: No symptoms or risk factors identified. Fall Risk None identified. Vital Signs: 08:54 BP 185 / 166; tr6 10:06 BP 119 / 75; Pulse 112; Resp 18; Temp 97.9; Pulse Ox 96% ; tr6 Vitals: 10:06 Cardiac Rhythm Assessment Sinus tach. tr6 ED Course: 08:47 Patient arrived in ED. tr6 08:48 Beto Cortez MD is Attending Physician. [facility] 08:54 Rosa Leigh, RN is Primary Nurse. tr6 08:56 Triage completed. tr6 08:56 Appears restless. tr6 08:56 Patient has correct armband on for positive identification. Fall risk band placed. tr6 Placed in gown. Bed in low position. Call light in reach. Side rails up X2. quality assurance monitor final on. Pulse ox on. NIBP on. Door closed. Noise minimized. Visitors limited. Lights dimmed. Moved to private room. Diet: Patient is NPO. 08:56 No provider procedures requiring assistance completed. Patient maintains SpO2 tr6 saturation greater than 95% on room air. 09:15 XRAY Chest (1 view) In Process Unspecified. EDMS 09:[address] tr6 09:35 Inserted saline lock: 18 gauge in right antecubital area, using aseptic technique. tr6 Blood collected. 09:36 CT Abd/Pelvis - IV Contrast Only In Process Unspecified. EDMS 10:08 Arm band placed on right wrist. tr6 10:08 Patient admitted, IV remains in place. tr6 10:35 Lito Chao MD is Hospitalizing Provider. [facility] 11:47 Bb Add On Sent. tr6 Administered Medications: 09:35 Drug: Zofran (Ondansetron) 4 mg Route: IVP; Site: right antecubital; tr6 09:36 Drug: NS 0.9% 1000 ml Route: IV; Rate: 125 ml/hr; Site: right antecubital; tr6 09:36 Drug: morphine 4 mg Route: IVP; Site: right antecubital; tr6 09:36 Drug: Zosyn (piperacillin-tazobactam) 3.375 grams Route: IVPB; Infused Over: 60 mins; tr6 Site: right antecubital; 11:32 Drug: Dilaudid (HYDROmorphone) 0.5 mg Route: IVP; Site: right antecubital; tr6 Outcome: 10:08 Admitted to tr6 10:08 Condition: stable 10:08 Instructed on the need for admit. 10:37 Decision to Hospitalize by Provider. richardson 13:55 Patient left the ED. aa5 Signatures: Dispatcher [employer] Beto Walters MD MD cha Calderon, Audri RN RN aa5 Rosa Leigh RN RN tr6
[2020-12-26] MEDS ORDERED: DIPHENHYDRAMINE 50 MG/ML VIAL ONE (11:27)
[2020-12-26] MEDS ORDERED: ACETAMINOPHEN 325 MG TABLET ONE (11:28)
[2020-12-26] MEDS ORDERED: NA CHLORIDE 0.9% 250 ML ONE ×2 (11:31→16:12)
[2020-12-26] MEDS ORDERED: HYDROMORPHONE HCL 0.5 MG/0.5 ML INJ ONE (11:48)
[2020-12-26] MEDS ORDERED: D50W 25 GM/50 ML SYRINGE IV PRN (12:01)
[2020-12-26] MEDS ORDERED: GLUCAGON 1 MG/VIAL IM PRN (12:01)
[2020-12-26] MEDS ORDERED: ONDANSETRON 4 MG/2 ML VIAL IV PRN (12:01)
[2020-12-26] MEDS ORDERED: ALBUTEROL 2.5 MG/3 ML NEB SOL NEB PRN (12:02)
[2020-12-26 14:11] LABS: Anisocytosis 1+; Blood Morphology Comment NOTED (NOT SEEN); Hypochromasia 2+; Platelet Estimate INCR; White Blood Cell Scan OK (OK)
[2020-12-26] MEDS: GABAPENTIN 300 MG CAP PO SCH ×2 (14:53→21:56)
[2020-12-26] MEDS: NA CHLORIDE 0.9% 1,000 ML IV SCH ×2 (14:54→21:55)
[2020-12-26] MEDS: INSULIN -REGULAR HUMAN 50 UNIT/0.5 ML ML SQ SCH ×2 (16:30→22:02)
[2020-12-26 16:51] LABS: Arterial Blood Carboxyhemoglob 2.2 % (0-1.5); Blood Gas Oxyhemoglobin 94.4 % (94-97); Blood O2 Saturation 97.6 % (92-98.5)
--- NOTE | 2020-12-26 17:41 | P.HP ---
Certification for Inpatient Patient admitted to: Inpatient With expected LOS: >2 Midnights Practitioner: I am a practitioner with admitting privileges, knowledge of patient current condition, hospital course, and medical plan of care. Services: Services provided to patient in accordance with Admission requirements found in Title 42 Section 412.3 of the Code of Federal Regulations Patient History Date of Service: 12/26/20 Primary Care Provider: Zhanna Reason for admission: bleeding mass in the groin History of Present Illness: Patient is a gentleman with a history of bleeding mass in the left inguinal groin. He has a pmh of htn, HeFP, sleep apnea, copd and RA The patient was in the hospital last month. He had an inconclusive biopsy. Did not follow up. The patient came to the ER this morning with continuing bleeding and shortness of breath. The patent was also hypoxic. He was hypoxic. The Patient does not have a cpap at home Allergies No Known Allergies Allergy (Verified 11/07/20 22:07) Home Medications: Ciprofloxacin HCl [Cipro 500 MG Tablet] 500 mg PO BID #14 tab 11/09/20 Gabapentin 300 mg PO TID #90 capsule 11/09/20 Glipizide [Glipizide ER] 5 mg PO DAILY #30 tab.er.24 11/09/20 Hydrocodone 10/APAP 325 [[place] 10/325*] 2 tab PO Q4H PRN #60 tab 11/09/20 Metformin HCl 500 mg PO BID #60 tablet 11/09/20 Sodium Hypochlorite [Dakin's] 473 ml MC DAILY #1 bottle 11/09/20 metroNIDAZOLE [Flagyl*] 500 mg PO Q8H #21 tablet 11/09/20 Surgicel 1 unit TOP PRN #5 11/10/20 - Past Medical/Surgical History Diabetic: Yes -: Diabetes mellitus -: Rheumatoid Arthritis -: COPD -: Sleep Apnea -: None - Social History Alcohol use: No CD- Drugs: No Caffeine use: No Review of Systems Gastrointestinal: Abdominal Pain, Other (bleeding from mass in left groin ) Physical Examination - Vital Signs Temperature: 97.3 F Blood Pressure: 140/66 Pulse: 112 Respirations: 19 Pulse Ox (%): 95 - Physical Exam General: Alert, In no apparent distress HEENT: Atraumatic, PERRLA, Mucous membr. moist/pink, EOMI, Sclerae nonicteric Neck: Supple, 2+ carotid pulse no bruit, No LAD, Without JVD or thyroid abnormality Respiratory: Clear to auscultation bilaterally, Normal air movement Cardiovascular: Regular rate/rhythm, Normal S1 S2 Gastrointestinal: Normal bowel sounds, No tenderness Musculoskeletal: No tenderness Integumentary: No rashes Neurological: Normal gait, Normal speech, Normal strength at 5/5 x4 extr, Normal tone, Normal affect Lymphatics: No axilla or inguinal lymphadenopathy - Studies Laboratory Data (last 24 hrs) 12/26/20 09:15: PT 15.4 H, INR 1.34 12/26/20 09:15: WBC 14.70 H D, Hgb 7.0 L, Hct 23.8 L, Plt Count 673 H 12/26/20 09:15: Sodium 135 L, Potassium 4.0, BUN 18, Creatinine 0.91, Glucose 260 H, Magnesium 1.9, Total Bilirubin 0.3, AST 8 L, ALT 12, Alkaline Phosphatase 86 Assessment and Plan - Problems (Diagnosis) (1) Inguinal mass Current Visit: No Status: Chronic Plan: Will transfuse as necessary. Plans for core biopsy with IR. (2) Sleep apnea Current Visit: Yes Status: Acute Plan: will start him on a cpap (3) Diastolic CHF Current Visit: Yes Status: Acute Plan: treat with cpap. Currently not fluid overloaded Qualifiers: Heart failure chronicity: chronic Qualified Code(s): I50.32 - Chronic diastolic (congestive) heart failure (4) Acute blood loss anemia Current Visit: No Status: Acute Plan: will replace (5) DM type 2 (diabetes mellitus, type 2) Current Visit: No Status: Chronic Plan: a1c of 8.3 start slding scale insulin on the patient Qualifiers: Diabetes mellitus parts counterman insulin use: with parts counterman use Diabetes mellitus complication status: without complication Qualified Code(s): E11.9 - Type 2 diabetes mellitus without complications; Z79.4 - intermodal customer service (current) use of insulin Discharge Plan: Home Plan to discharge in: Greater than 2 days - Advance Directives Does patient have a Living Will: No Does patient have a Durable POA for Healthcare: No - Code Status/Comfort Care Code Status Assessed: No Code Status: Full Code Physician Review: Patient Assessed, Agree with Above Assessment and Plan Critical Care: No Time Spent Managing Pts Care (In Minutes): 50
[2020-12-26 19:10] VITALS: BMI 60.0
[2020-12-26] MEDS ORDERED: HYDROMORPHONE HCL 1 MG/ML INJ IV PRN (20:19)
[2020-12-26] MEDS ORDERED: HYDROMORPHONE HCL 0.5 MG/0.5 ML INJ IV PRN (20:21)
[2020-12-26] MEDS ORDERED: FENTANYL 50 MCG/PATCH TD SCH (21:00)
[2020-12-27] MEDS: HYDROMORPHONE HCL 0.5 MG/0.5 ML INJ IV PRN ×2 (00:36→08:23)
[2020-12-27 03:11] LABS: Protime INR 1.27
[2020-12-27 03:36] LABS: Albumin 2.4 g/dL (3.4-5.0); Bilirubin Direct 0.1 mg/dL (0-0.2); Bilirubin Total 0.3 mg/dL (0.2-1.0); Protein, Total 9.5 g/dL (6.4-8.2)
[2020-12-27 06:45] LABS: Absolute Lymphocytes (CBC) 1.1 K/uL (0.7-4.9); Basophils % 0.7 % (0-1.3); Hematocrit 27.6 % (39.6-49.0); Lymphocytes % 5.4 % (15.3-44.8); MPV 6.7 fL (7.6-11.3); RBC Red Blood Cell Count 4.07 M/uL (4.33-5.43)
[2020-12-27 07:13] LABS: Albumin 2.2 g/dL (3.4-5.0); Bilirubin Total 0.3 mg/dL (0.2-1.0); Potassium 5.2 mmol/L (3.5-5.1); Protein, Total 8.9 g/dL (6.4-8.2); Thyroid Stimulating Hormone 0.929 uIU/mL (0.360-3.740)
[2020-12-27 08:11] LABS: Anisocytosis 2+; Blood Morphology Comment NOTED (NOT SEEN); Hypochromasia 2+; Platelet Estimate INCR; Toxic Granulation 1+
[2020-12-27] MEDS: INSULIN -REGULAR HUMAN 50 UNIT/0.5 ML ML SQ SCH ×4 (08:23→21:36)
[2020-12-27] MEDS: GABAPENTIN 300 MG CAP PO SCH ×3 (08:23→21:35)
[2020-12-27] MEDS ORDERED: HYDROMORPHONE HCL 2 MG/ML inj IV PRN (10:55)
--- NOTE | 2020-12-27 11:16 | RAD REPORT ---
EXAM DESCRIPTION: US - Biopsy Lymph Node - 12/27/2020 10:04 am CLINICAL HISTORY: Needle core biopsy of left inguinal lymph node COMPARISON: No comparisons FINDINGS: Preoperative diagnosis: Left groin mass. Post operative diagnosis: Same. Conscious Sedation: None Fluoroscopy time: None Contrast used: None Estimated blood loss: Minimal Specimens:4 core samples were obtained. The left groin was prepped and draped in the usual sterile fashion. 1% lidocaine was infiltrated into the subcutaneous tissues for local anesthesia. Real time ultrasound scanning of the left groin demon strated large mass. Under ultrasound guidance, using a 18-gauge, 6 cm long, 2 cm throw core biopsy gu n, 4 specimens were obtained of this lesion and sent to pathology for evaluation. There were no compl ications. IMPRESSION: Technically successful ultrasound-guided core biopsy of a suspicious left inguinal mass.
--- NOTE | 2020-12-27 12:52 | EKG ---
Test Date: 2020-12-26 Test Time: 10:00:00 Low Emission Automobile Designer: TTR MEASUREMENT RESULTS: Intervals: Rate: 115 NH: 160 QRSD: 82 QT: 316 QTc: 437 Burton: P: 72 NH: 160 QRS: 90 T: 70 INTERPRETIVE STATEMENTS: Sinus tachycardia with occasional premature ventricular complexes Rightward axis Borderline ECG Compared to ECG 11/27/2020 23:56:22 Ventricular premature complex(es) now present Right-axis deviation now present Electronically Signed On 12-27-20 12:50:33 CDT by Jose Rea
[2020-12-27] MEDS: NA CHLORIDE 0.9% 1,000 ML IV SCH ×3 (13:43→16:59)
[2020-12-27] MEDS ORDERED: D50W 25 GM/50 ML SYRINGE IV PRN (16:20)
[2020-12-27] MEDS ORDERED: GLUCAGON 1 MG/VIAL IM PRN (16:20)
--- NOTE | 2020-12-27 16:29 | P.PN ---
Subjective Date of Service: 12/27/20 Primary Care Provider: Zhanna Chief Complaint: bleeding mass in the groin Subjective: No new changes Review of Systems 10-point ROS is otherwise unremarkable Integumentary: Other (left inguinal lymph node mass with pain ) Physical Examination - Vital Signs Temperature: 97.7 F Blood Pressure: 163/91 Pulse: 111 Respirations: 20 Pulse Ox (%): 99 - Physical Exam General: Alert, In no apparent distress HEENT: Atraumatic, PERRLA, EOMI Neck: Supple, JVD not distended Respiratory: Clear to auscultation bilaterally, Normal air movement Cardiovascular: Regular rate/rhythm, Normal S1 S2 Gastrointestinal: Normal bowel sounds, No tenderness Musculoskeletal: No tenderness Integumentary: No rashes, Tenderness/swelling (right inguinal mass ) Neurological: Normal speech, Normal tone, Normal affect Lymphatics: No axilla or inguinal lymphadenopathy Assessment & Plan - Problems (Diagnosis) (1) Inguinal mass Current Visit: No Status: Chronic Plan: Will transfuse as necessary. Plans for core biopsy with IR. 12/27 Awaiting for results of the medications (2) Sleep apnea Current Visit: Yes Status: Acute Plan: will start him on a cpap 12/27 Have discussed with the patient the need for a cpap. He has diastolic systolic failure. Which would explaints her shortness of breath. He is currently refusing the cpap (3) Diastolic CHF Current Visit: Yes Status: Acute Plan: treat with cpap. 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
[2020-12-27] MEDS: INSULIN GLARGINE 100 UNITS/ML SQ SCH (21:35)
[2020-12-27] MEDS: PIPER/TAZO/NS 3.375gm 3.375 GM/100 ML BAG IVPB SCH (21:43)
[2020-12-27 23:14] LABS: Urine Appearance CLEAR (Clear); Urine Bilirubin NEGATIVE (Negative); Urine Blood NEGATIVE (Negative); Urine Color YELLOW (Yellow); Urine Glucose 2+ (Negative); Urine Protein NEGATIVE (Negative); Urine Urobilinogen 0.2 mg/dL (0.2-1.0)
[2020-12-27 23:19] LABS: Urine Microscopic Reflex NO UMIC
[2020-12-27] MEDS: HYDROCODONE/APAP 7.5/325 MG TAB PO PRN (23:31)
[2020-12-28] MEDS: NA CHLORIDE 0.9% 1,000 ML IV SCH ×3 (02:36→19:40)
[2020-12-28] MEDS: PIPER/TAZO/NS 3.375gm 3.375 GM/100 ML BAG IVPB SCH ×3 (02:37→16:54)
[2020-12-28 06:17] LABS: Absolute Lymphocytes (CBC) 2.4 K/uL (0.7-4.9); Basophils % 0.8 % (0-1.3); Hematocrit 23.7 % (39.6-49.0); Lymphocytes % 13.9 % (15.3-44.8); MPV 6.6 fL (7.6-11.3); RBC Red Blood Cell Count 3.57 M/uL (4.33-5.43)
[2020-12-28 06:36] LABS: ALT/SGPT 15 U/L (12-78); AST/SGOT 10 U/L (15-37); Albumin 2.1 g/dL (3.4-5.0); Alkaline Phosphatase 91 U/L (45-117); BUN Blood Urea Nitrogen 13 mg/dL (7-18); Bicarbonate 34 mmol/L (21-32); Bilirubin Total 0.2 mg/dL (0.2-1.0); Glucose Level 224 mg/dL (74-106); Potassium 4.2 mmol/L (3.5-5.1); Protein, Total 8.1 g/dL (6.4-8.2); Sodium Level 134 mmol/L (136-145)
[2020-12-28] MEDS: GABAPENTIN 300 MG CAP PO SCH ×3 (08:25→21:11)
[2020-12-28] MEDS: HYDROCODONE/APAP 7.5/325 MG TAB PO PRN ×3 (08:25→21:10)
[2020-12-28] MEDS: INSULIN -REGULAR HUMAN 50 UNIT/0.5 ML ML SQ SCH ×4 (08:26→21:11)
[2020-12-28 08:40] LABS: Rheumatoid Factor NEG (NEG)
[2020-12-28] MEDS: SODIUM HYPOCHLORITE 0.5% 473 ML TOP SCH (09:00)
--- NOTE | 2020-12-28 14:45 | P.PN ---
Subjective Date of Service: 12/28/20 Primary Care Provider: Zhanna Chief Complaint: bleeding mass in the groin Subjective: No new changes Patient refusing cpap Review of Systems 10-point ROS is otherwise unremarkable Physical Examination - Vital Signs Temperature: 97.8 F Blood Pressure: 162/80 Pulse: 106 Respirations: 21 Pulse Ox (%): 94 - Physical Exam General: Alert, In no apparent distress HEENT: Atraumatic, PERRLA, EOMI Neck: Supple, JVD not distended Respiratory: Clear to auscultation bilaterally, Normal air movement Cardiovascular: Regular rate/rhythm, Normal S1 S2 Gastrointestinal: Normal bowel sounds, No tenderness Musculoskeletal: No tenderness Integumentary: No rashes Neurological: Normal speech, Normal tone, Normal affect Lymphatics: No axilla or inguinal lymphadenopathy Assessment & Plan - Problems (Diagnosis) (1) Inguinal mass Current Visit: No Status: Chronic Plan: Will transfuse as necessary. Plans for core biopsy with IR. 12/28 Awaiting for results of the medications (2) Sleep apnea Current Visit: Yes Status: Acute Plan: will start him on a cpap 12/27 Have discussed with the patient the need for a cpap. He has diastolic systolic failure. Which would explaints her shortness of breath. He is currently refusing the cpap (3) Diastolic CHF Current Visit: Yes Status: Acute Plan: treat with cpap. 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
[2020-12-28] MEDS: MORPHINE 4 MG/ML SYR IV PRN (15:32)
--- NOTE | 2020-12-28 18:19 | P.PN ---
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
[2020-12-28] MEDS: INSULIN GLARGINE 100 UNITS/ML SQ SCH (21:12)
--- NOTE | 2020-12-28 21:25 | CON ---
Date of Consultation: 12/27/2020 Brief History Of Present Illness: The patient is a patient known to me from previous admission. He had a history of a large fungating mass to the left inguinal region, which has a cyst essentially rep laced his left inguinal crease with a large dehisced appearing fungating wound. He states he has a h istory positive for HPV and this emerged as a small HPV genital wart type lesion, which has progressi vely gotten worse. As he did not have insurance, he did not seek treatment at that point. I perform ed a biopsy, which essentially did not come back as significant diagnosis for this area. As such, I recommend the patient to get a needle core biopsy. He had been unable to do so for various logistic reasons and ultimately he had not been compliant with wound care. We did arrange wound care as an ou tpatient at his home facility; however, he states he did not live at that house anymore and as such, he had not received any wound care. He had been following up in my clinic intermittently and noncomp liant with followup and wound care as we would frequently find toilet paper and various other non-wou nd care related packings into this area including tissues, toilet paper, towels, etc. He was placed on antibiotics intermittently and was not interested in taking antibiotics at times and he was advise d on proper wound care, which as stated above he is noncompliant with. He presented to the emergency room on 12/26 with bleeding from this lesion as it gets continuously infected and will eventually yusuf ve a rupture of 1 of the large fungating blebs and led to significant blood loss, at which point, he comes to the emergency room and has it packed essentially and stops the bleeding. As such, he came t o the emergency room with bleeding and the wound was examined, packed once again and bleeding was sto pped, and I was consulted for evaluation for bleeding. The patient has had no bleeding since being a dmitted to the ER and I saw him on the floor from the previous evening. Past Medical History: Diabetes, rheumatoid arthritis, sleep apnea, COPD, HPV. Past Surgical History: Biopsy of this large left fungating lesion. Allergies: NO KNOWN DRUG ALLERGIES. Home Medications: Included Cipro, gabapentin, glipizide, [place], metformin, Dakin solution, Flagyl. Review of Systems: Ten-point review of systems other than HPI, denies. Physical Examination: Vital Signs: At the time of my examination; his temperature was 97.3, blood pressure 140/66, heart r ate was 82, respirations 18, pulse ox 99% on room air. He was awake during my examination. General: He is awake, alert, oriented. He is in no apparent distress. Psychiatric: He is appropriate, conversive. HEENT: He is otherwise normocephalic. His sclerae were anicteric. His mucous membranes were moist. Oropharynx clear. Neck: Supple without JVD. Chest: Normal expansion and excursion. Cardiovascular: Regular rate and rhythm. Pulmonary: Clear to auscultation bilaterally. Abdomen: He is generally obese. He continues to have a large fungating mass in the left inguinal ar ea with lymphadenopathy. He has palpable lymphadenopathy in bilateral inguinal regions. Extremities: Otherwise no clubbing, cyanosis, or edema. Laboratory Data: Laboratory exam revealed a white blood cell count of 20.8, hemoglobin 7.8, hematocr it 27.6, platelet count was 591. His coags showed a PT of 15.4, INR 1.3. His chemistry showed a sod ium of 131, potassium 5.2, chloride 108, carbon dioxide 28, BUN 17, creatinine 1.0, glucose is 286. He had an abdomen and pelvis CT on 12/26/2020, which was read once again as a 13 x 8 x 12 cm ulcerate d mass is present within predominantly subcutaneous tissue of the left inguinal region extending supe riorly, several adjacent large lymph nodes present, mild right inguinal lymphadenopathy, small right containing hernia containing fat, 13 cm ulcerated mass predominantly in left inguinal region likely n eoplastic. Assessment And Plan: This is a 45-year-old male, who comes in with a large fungating mass in left in guinal region with suspicious features concerning for neoplastic process. 1.I have recommended needle core biopsy and ordered this an outpatient; however, while the patient i s inpatient, I recommend we go ahead and proceed with needle core biopsy performed by interventional radiologist. 2.Continue daily dressing changes with Dakin's solution and Kerlix damp to dry to keep this wound as sterile as possible. 3.Antibiotics per Dr. Chao. 4.Serial exams. If the patient bleeds, I will help control this depending on the etiology; however, he has had no active bleed since admission. 5.Transfuse p.r.n. I have explained risks, benefits, and alternatives of the above stated plan. Th e patient agrees to proceed as indicated. Thank you for this interesting consult. CRISTEL Voice ID: [id number] Report ID: [id number]
[2020-12-29] MEDS: PIPER/TAZO/NS 3.375gm 3.375 GM/100 ML BAG IVPB SCH ×2 (00:49→08:35)
[2020-12-29] MEDS: HYDROCODONE/APAP 7.5/325 MG TAB PO PRN ×2 (02:09→08:34)
[2020-12-29] MEDS: MORPHINE 4 MG/ML SYR IV PRN (03:49)
[2020-12-29] MEDS: NA CHLORIDE 0.9% 1,000 ML IV SCH (03:49)
[2020-12-29 06:40] LABS: Basophils % 1.1 % (0-1.3); Hematocrit 23.7 % (39.6-49.0); Lymphocytes % 17.8 % (15.3-44.8); MPV 6.7 fL (7.6-11.3); RBC Red Blood Cell Count 3.56 M/uL (4.33-5.43)
[2020-12-29 06:45] LABS: ALT/SGPT 15 U/L (12-78); AST/SGOT 8 U/L (15-37); Albumin 2.1 g/dL (3.4-5.0); Alkaline Phosphatase 87 U/L (45-117); BUN Blood Urea Nitrogen 15 mg/dL (7-18); Bicarbonate 35 mmol/L (21-32); Bilirubin Total 0.2 mg/dL (0.2-1.0); Glucose Level 259 mg/dL (74-106); Potassium 4.4 mmol/L (3.5-5.1); Sodium Level 136 mmol/L (136-145)
[2020-12-29] MEDS: GABAPENTIN 300 MG CAP PO SCH ×2 (08:34→14:12)
[2020-12-29] MEDS: INSULIN -REGULAR HUMAN 50 UNIT/0.5 ML ML SQ SCH ×2 (08:35→12:29)
[2020-12-29] MEDS: SODIUM HYPOCHLORITE 0.5% 473 ML TOP SCH (08:36)
[2020-12-29] MEDS ORDERED: FENTANYL 50 MCG/PATCH TD SCH ×2 (09:00)
--- NOTE | 2020-12-29 09:22 | P.DS ---
Admission Date: 12/26/20 Discharge Date: 12/29/20 Primary Care Provider: Zhanna Disposition: ROUTINE DISCHARGE Discharge Condition: FAIR Reason for Admission: bleeding mass in the groin - Problems (1) Inguinal mass Current Visit: No Status: Chronic (2) Sleep apnea Current Visit: Yes Status: Acute (3) Diastolic CHF Current Visit: Yes Status: Acute Qualifiers: Heart failure chronicity: chronic Qualified Code(s): I50.32 - Chronic diastolic (congestive) heart failure (4) Acute blood loss anemia Current Visit: No Status: Acute (5) DM type 2 (diabetes mellitus, type 2) Current Visit: No Status: Chronic Qualifiers: Diabetes mellitus skilled nursing insulin use: with technician terminal and repeater use Diabetes mellitus complication status: without complication Qualified Code(s): E11.9 - Type 2 diabetes mellitus without complications; Z79.4 - care home (current) use of insulin Brief History of Present Illness: Patient is a gentleman with a history of bleeding mass in the left inguinal groin. He has a pmh of htn, HeFP, sleep apnea, copd and RA The patient was in the hospital last month. He had an inconclusive biopsy. Did not follow up. The patient came to the ER this morning with continuing bleeding and shortness of breath. The patent was also hypoxic. He was hypoxic. The Patient does not have a cpap at home Hospital Course: Patient was admitted anemia secondary to a bleeding inguinal mass. He had an inconclusive wound biopsy with Dr. Armstrong He was transfused and admitted for a n Core biopsy with interventional radiology. The patient would not keep his cpap on during his stay. He has a history of poor compliance. Will discharge hm home. Have the patient follow up with me in a week. Will perscribe him some pain medications through my office eHR. Thank you for allowing me to take part in his care. Vital Signs/Physical Exam: Temp Pulse Resp BP Pulse Ox 97.0 F 102 H 21 H 146/89 H 98 12/29/20 08:00 12/29/20 08:00 12/29/20 08:34 12/29/20 08:00 12/29/20 08:00 General: Alert, In no apparent distress HEENT: Atraumatic, PERRLA, EOMI Neck: Supple, JVD not distended Respiratory: Clear to auscultation bilaterally, Normal air movement Cardiovascular: Regular rate/rhythm, Normal S1 S2 Gastrointestinal: Normal bowel sounds, No tenderness Musculoskeletal: No tenderness Integumentary: No rashes Neurological: Normal speech, Normal tone, Normal affect Lymphatics: No axilla or inguinal lymphadenopathy Laboratory Data at Discharge: WBC 16.90 K/uL (4.3-10.9) H 12/29/20 06:12 Hgb 7.0 g/dL (13.6-17.9) L 12/29/20 06:12 Hct 23.7 % (39.6-49.0) L 12/29/20 06:12 Plt Count 475 K/uL (152-406) H 12/29/20 06:12 PT 14.6 SECONDS (9.5-12.5) H 12/27/20 02:47 INR 1.27 12/27/20 02:47 APTT 26.3 SECONDS (24.3-36.9) 12/27/20 02:47 Sodium 136 mmol/L (136-145) 12/29/20 06:12 Potassium 4.4 mmol/L (3.5-5.1) 12/29/20 06:12 BUN 15 mg/dL (7-18) 12/29/20 06:12 Creatinine 0.81 mg/dL (0.55-1.3) 12/29/20 06:12 Glucose 259 mg/dL (74-106) H 12/29/20 06:12 Magnesium 1.9 mg/dL (1.8-2.4) 12/26/20 09:15 Total Bilirubin 0.2 mg/dL (0.2-1.0) 12/29/20 06:12 AST 8 U/L (15-37) L 12/29/20 06:12 ALT 15 U/L (12-78) 12/29/20 06:12 Alkaline Phosphatase 87 U/L (45-117) 12/29/20 06:12 Triglycerides 78 mg/dL (<150) 12/27/20 06:22 Cholesterol 136 mg/dL (<200) 12/27/20 06:22 HDL Cholesterol 30 mg/dL (40-60) L 12/27/20 06:22 Cholesterol/HDL Ratio 4.53 12/27/20 06:22 Amylase 586 U/L (25-115) H* 12/27/20 02:47 Lipase 73 U/L (73393) 12/27/20 02:47 Home Medications: Ciprofloxacin HCl [Cipro 500 MG Tablet] 500 mg PO BID #14 tab 11/09/20 Gabapentin 300 mg PO TID #90 capsule 11/09/20 Glipizide [Glipizide ER] 5 mg PO DAILY #30 tab.er.24 11/09/20 Hydrocodone 10/APAP 325 [[place] 10/325*] 2 tab PO Q4H PRN #60 tab 11/09/20 Metformin HCl 500 mg PO BID #60 tablet 11/09/20 Sodium Hypochlorite [Dakin's] 473 ml MC DAILY #1 bottle 11/09/20 metroNIDAZOLE [Flagyl*] 500 mg PO Q8H #21 tablet 11/09/20 Surgicel 1 unit TOP PRN #5 11/10/20 Sulfamethoxazole/Trimethoprim [Bactrim Ds Tablet] 1 each PO BID 7 Days #14 tablet 12/29/20 New Medications: Sulfamethoxazole/Trimethoprim [Bactrim Ds Tablet] 1 each PO BID 7 Days #14 tablet Diet: Regular Activity: Ad corey Followup: Jonathan Monaco MD [ACTIVE - CAN ADMIT] - Lito Chao MD [ACTIVE - CAN ADMIT] - 1 Week Physician Review: Patient Assessed, Agree with Above Assessment and Plan Time spent managing pt's care (in minutes): 30
[2020-12-29 11:02] VITALS: O2SAT 99
[2020-12-29 12:08] VITALS: BP 148/85; TEMP 97.5
== END 2020-12-29 16:04 | disposition left against medical advice (07) | DRG 988 ==
LOC: ER 08:46 → ERHOLD 11:57 → 2ND 13:20
PROVIDERS: ADMIT Internal Medicine; ATTEND Internal Medicine
PROC: 30233N1 Transfusion of Nonautologous Red Blood Cells into Peripheral Vein, Percutaneous Approach (ICD-10-PCS; 2020-12-26)
PROC: 0YB63ZX Excision of Left Inguinal Region, Percutaneous Approach, Diagnostic (ICD-10-PCS; principal; 2020-12-27)
DX: R22.9 Localized swelling, mass and lump, unspecified (principal); I50.32 Chronic diastolic (congestive) heart failure; D62 Acute posthemorrhagic anemia; I11.0 Hypertensive heart disease with heart failure; E11.9 Type 2 diabetes mellitus without complications; G47.30 Sleep apnea, unspecified; R09.02 Hypoxemia; M06.9 Rheumatoid arthritis, unspecified; A63.0 Anogenital (venereal) warts; Z79.4 Long term (current) use of insulin; Z91.19 Patient's noncompliance with other medical treatment and regimen; Z20.822 Contact with and (suspected) exposure to COVID-19; Z53.29 Procedure and treatment not carried out because of patient's decision for other reasons
CPT/HCPCS: 36415; 38505; 71045; 74177; 76942; 80048; 80053; 80061; 80076; 81003; 82150; 82565; 82805; 82947; 83036; 83605; 83690; 83735; 83880; 84443; 84484; 85025; 85610; 85730; 86200; 86430; 86850; 86900; 86901; 87040; 87070; 87077; 87186; 87205; 88305; 93005; 94660; 96374; 96375; 99284; 99285; J1170; J1200; J1815; J2405; J2543; J7030; J7050; P9016; Q9967; U0003

== ENCOUNTER 2021-01-29 14:24 | Emergency (ER) | payer OTHER ==
[2021-01-29] MEDS ORDERED: FENTANYL CITR 100 MCG/2 ML ONE (15:26)
--- NOTE | 2021-01-29 15:30 | EDPHYS ---
Physician Documentation [facility] Name: Yassine Guerrero Jr Age: 45 yrs Sex: Male : 1975 Arrival Date: 01/29/2021 Time: 14:34 Bed 17 Private MD: ED Physician Fito Greenberg HPI: 01/29 15:16 This 45 yrs old Male presents to ER via EMS with complaints of Pain. rn 15:16 Patient reports came in for pain control. States long history of fungating mass to left rn groin, status post biopsy and core biopsy. States is supposed to be getting pain medication but has not been approved yet. Denies any changes in wound or signs of infection. States is just being painful and needs pain medicine.. Onset: The symptoms/episode began/occurred at an unknown time. Severity of symptoms: At their worst the symptoms were moderate in the emergency department the symptoms are unchanged. The patient has experienced similar episodes in the past. The patient has not recently seen a physician. Historical: - Allergies: 14:44 No Known Allergies; tc5 - Immunization history:: Adult Immunizations up to date, Client reports having NOT received the Covid vaccine. Last tetanus immunization: up to date. - Social history:: Smoking status: Patient reports the use of cigarette tobacco products, unknown amount Patient uses. - Family history:: not pertinent. - Hospitalizations: : No recent hospitalization is reported. ROS: 15:16 Constitutional: Negative for fever, chills, and weight loss, Eyes: Negative for injury, rn pain, redness, and discharge, Neck: Negative for injury, pain, and swelling, Cardiovascular: Negative for chest pain, palpitations, and edema, Respiratory: Negative for shortness of breath, cough, wheezing, and pleuritic chest pain, Abdomen/GI: Negative for abdominal pain, nausea, vomiting, diarrhea, and constipation, Back: Negative for injury and pain, MS/Extremity: Negative for injury and deformity, Skin: Positive for fungating mass to left groin and pain to the area Neuro: Negative for headache, weakness, numbness, tingling, and seizure. Exam: 15:16 Constitutional: Overweight male, appears in pain Cardiovascular: Tachycardic, regular rn Respiratory: No increased work of breathing, no retractions or nasal flaring. Abdomen/GI: Soft, non-tender Skin: Large fungating mass left inguinal region, no signs of heavy bleeding, tissue actually appears healthier than has been in the past Vital Signs: 14:42 BP 103 / 92; Pulse 114; Resp 20; Temp 98.1; Pulse Ox 100% ; Weight 149.69 kg; Height 5 tc5 ft. 8 in. (172.72 cm); Pain 8/10; 14:47 BP 103 / 92; Pulse 112; Resp 20; Temp 98.1; Pulse Ox 100% ; Pain 8/10; tc5 15:47 BP 108 / 93; Pulse 111; Resp 18; Pulse Ox 95% ; tc5 14:42 Body Mass Index 50.18 (149.69 kg, 172.72 cm) tc5 MDM: 14:51 Patient medically screened. rn 15:28 Differential Diagnosis Pain, chronic fungating mass. Data reviewed: vital signs, nurses rn notes, and as a result, I will discharge patient. Counseling: I had a detailed discussion with the patient and/or guardian regarding: the historical points, exam findings, and any diagnostic results supporting the discharge/admit diagnosis, the need for outpatient follow up, to return to the emergency department if symptoms worsen or persist or if there are any questions or concerns that arise at home. Response to treatment: the patient's symptoms have mildly improved after treatment, and as a result, I will discharge patient. Special discussion: I discussed with the patient/guardian in detail that at this point there is no indication for admission to the hospital. It is understood, however, that if the symptoms persist or worsen the patient needs to return immediately for re-evaluation. Based on the history and exam findings, there is no indication for further emergent testing or inpatient evaluation. I discussed with the patient/guardian the need to see the primary care provider for further evaluation of the symptoms. ED course: Patient's physician, Dr. Chao, called and states patient's fentanyl has finally been approved and is waiting [facility]. Patient came in for pain control. Given pain medication here for short-term pain management. Dr. Chao saw and evaluated patient while here in ER and states patient can be discharged to fulfill his medication prescription.. Administered Medications: 15:02 Drug: fentaNYL (PF) 50 mcg Route: IM; Site: right deltoid; tc5 15:46 Follow up: Response: No adverse reaction tc5 Disposition Summary: 01/29/21 15:30 Discharge Ordered Location: Home rn Problem: an ongoing problem rn Symptoms: have improved rn Condition: Stable rn Diagnosis - Chronic pain, not elsewhere classified rn Followup: rn - With: Private Physician - When: As needed - Reason: Recheck today's complaints, Re-evaluation by your physician Discharge Instructions: - Discharge Summary Sheet rn - Chronic Pain, Adult rn Forms: - Medication Reconciliation Form rn - Thank You Letter rn - Antibiotic salesperson furniture - Prescription Opioid Use rn Signatures: Fito Greenberg MD MD rn Cassaboom, Theresa, ZULAY RN tc5
--- NOTE | 2021-01-29 15:30 | ER ---
Nurse's Notes [facility] Name: Yassine Guerrero Jr Age: 45 yrs Sex: Male : 1975 Arrival Date: 01/29/2021 Time: 14:34 Bed 17 Private MD: Diagnosis: Chronic pain, not elsewhere classified Presentation: 01/29 14:42 Chief complaint: Patient states: pain at cancer site Left inner thigh, pt states he is tc5 out of his pain med and pain is currently 8/10. Coronavirus screen: Vaccine status: Patient reports being unvaccinated. Ebola Screen: Patient negative for fever greater than or equal to 101.5 degrees Fahrenheit, and additional compatible Ebola Virus Disease symptoms Patient denies exposure to infectious person. Patient denies travel to an Ebola-affected area in the 21 days before illness onset. No symptoms or risks identified at this time. Risk Assessment: Do you want to hurt yourself or someone else? Patient reports no desire to harm self or others. Onset of symptoms was January 29, 2021 at 02:00. 14:42 Method Of Arrival: EMS tc5 14:42 Acuity: IRINEO 3 tc5 Triage Assessment: 14:45 General: Appears uncomfortable, Behavior is cooperative, appropriate for age, anxious. tc5 Pain: Complains of pain in pelvis. Neuro: No deficits noted. Cardiovascular: No deficits noted. Respiratory: No deficits noted. GI: No deficits noted. : No deficits noted. 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 Historical: - Allergies: 14:44 No Known Allergies; tc5 - Immunization history:: Adult Immunizations up to date, Client reports having NOT received the Covid vaccine. Last tetanus immunization: up to date. - Social history:: Smoking status: Patient reports the use of cigarette tobacco products, unknown amount Patient uses. - Family history:: not pertinent. - Hospitalizations: : No recent hospitalization is reported. Screenin:47 Abuse screen: Denies threats or abuse. Denies injuries from another. Nutritional tc5 screening: No deficits noted. Tuberculosis screening: No symptoms or risk factors identified. Fall Risk None identified. Assessment: 14:47 Reassessment: No changes from previously documented assessment. tc5 Vital Signs: 14:42 BP 103 / 92; Pulse 114; Resp 20; Temp 98.1; Pulse Ox 100% ; Weight 149.69 kg; Height 5 tc5 ft. 8 in. (172.72 cm); Pain 8/10; 14:47 BP 103 / 92; Pulse 112; Resp 20; Temp 98.1; Pulse Ox 100% ; Pain 8/10; tc5 15:47 BP 108 / 93; Pulse 111; Resp 18; Pulse Ox 95% ; tc5 14:42 Body Mass Index 50.18 (149.69 kg, 172.72 cm) tc5 ED Course: 14:34 Patient arrived in ED. ap3 14:42 Shannan Flores, RN is Primary Nurse. tc5 14:44 Triage completed. tc5 14:51 Fito Greenberg MD is Attending Physician. rn Administered Medications: 15:02 Drug: fentaNYL (PF) 50 mcg Route: IM; Site: right deltoid; tc5 15:46 Follow up: Response: No adverse reaction tc5 Outcome: 15:30 Discharge ordered by . rn 15:48 Patient left the ED. tc5 Signatures: Fito Greenberg MD MD rn Prokisch, Amanda, RN RN 3 Shannan Flores, ZULAY BISWAS tc5
[2021-01-29 15:53] VITALS: TEMP 98.1
[2021-01-29 15:56] VITALS: BP 108/93; O2SAT 95
== END 2021-01-29 15:48 | disposition home or self-care (01) ==
LOC: ER 14:24
DX: G89.29 Other chronic pain (principal); Z72.0 Tobacco use
CPT/HCPCS: 96372; 99283; J3010

== ENCOUNTER 2021-02-21 06:25 | Day surgery (SDC) | payer OTHER | END 2021-02-21 07:15 | disposition home or self-care (01) | LOC: OR 06:25 | PROVIDERS: ATTEND Surgery | DX: Z12.11 Encounter for screening for malignant neoplasm of colon (principal); Z53.09 Procedure and treatment not carried out because of other contraindication; R22.2 Localized swelling, mass and lump, trunk | CPT/HCPCS: U0003 ==

== ENCOUNTER 2021-03-27 15:11 | Inpatient (IN) | payer OTHER ==
--- OUTSIDE RECORDS SUMMARY | 2021-03-27 15:17 | XMS REPORT | Continuity of Care Document ---
:1975 Author Organization [facility] t Address [address] [place] [address] Care Team Providers Name Role Phone AKUA HUDSON Attending Clinician Unavailable Cb Anderson Attending Clinician Unavailable DR PAVEL AMEZCUA Attending Clinician Unavailable Physician, No Primary or Family Admitting Clinician Unavailelissa AMEZCUA DR Admitting Clinician Unavailable Payers Payer Name Policy Type Policy Number Effective Date Expiration Date S our [employer] [id number] 2020 PLUS 00:00:00 Problems This patient has no known problems. Allergies, Adverse Reactions, Alerts Allergy Allergy Status Severity Reaction(s) Onset Inactive Treating Comm ents Source Name Type Date Date Clinician No Known DA Active U [facility]04 Clear Allergie 00:00: Green s [facility] No Known DA Active U N/A [facility]04 Clear Allergie 00:00: Green [facility] No Known DA Active U [facility] 4[facility]20 Clear Allergie 00:00: Green s [facility] No Known DA Active U [facility] 4-20 Clear Allergie 00:00: Green [facility] NO KNOWN DA Active U [facility] CONTRAST 4-20 Clear MEDIA 00:00: Green [facility]ERG [address] [place] [address] NO KNOWN DA Active U 2000- [facility] OTHER 4-20 Clear ALLERGIE 00:00: [facility] Medications This patient has no known medications. Procedures Procedure Date / Time Performed Performing Clinician [facility] aj [id number] 2020-09-04 00:00:00 ISAI [facility] [id number] 2020-08-31 00:00:00 SHEZA [facility] [id number] 2020-08-31 00:00:00 SHEZA [facility] [id number] 2020-08-30 00:00:00 ISAI [facility] Encounters Start End Encounter Admission Attending Care Care Encounter Source Date/Time Date/Time Type Type Clinicians Facility Department ID 2021-02-07 Outpatient [facility] [id number] [place] 12:13:33 [facility] 2020-08-29 Inpatient HCABM ALETA [id number] [facility] 17:04:[id number] [facility] 2020-08-31 2020-08-31 Outpatient Rostata, HCACL LABO [id number] [facility] 08:30:00 08:30:00 Cb [id number] [facility] 2019-07-15 2019-07-15 Emergency E GOLDIE, [facility] [id number] [facility] 12:28:00 13:10:00 [facility] Results Test Description Test Time Test Comments Results Result Comments Source GLUBED 2020-10-12 12:17:00 Test Item Value Reference Range Interpretation Comme nts GLUBED (test code = GLUBED) 215 mg/dL 74-106 H Performed by certified filter operator at [facility] [id number] 12:17:00 Test Item Value Reference Range Interpretation Comments GLUBED (test code = 213 mg/dL 74-106 H Performe d by certified GLUBED) filter operator at [facility] [id number] 12:16:00 Test Item Value Reference Range Interpretation Comments GLUBED (test code = 156 mg/dL 74-106 H Performe d by certified GLUBED) filter operator at [facility] [id number] 12:15:00 Test Item Value Reference Range Interpretation Comments GLUBED (test code = 183 mg/dL 74-106 H Performe d by certified GLUBED) filter operator at [facility] [id number] 12:15:00 Test Item Value Reference Range Interpretation Comments GLUBED (test code 190 mg/dL 74-106 H Performed by certified = GLUBED[facility] [id number] 12:14:00 Test Item Value Reference Range Interpretation Comments GLUBED (test code 212 mg/dL 74-106 H Performed by certified = GLUBED[facility] [id number] 12:14:00 Test Item Value Reference Range Interpretation Comments GLUBED (test code = 263 mg/dL 74-106 H Performe d by certified GLUBED) filter operator at [facility] [id number] 16:11:00 Test Item Value Reference Range Interpretation Comments GLUBED (test code = 189 mg/dL 74-106 H Performe d by certified GLUBED) filter operator at [facility] [id number] 10:41:00 Test Item Value Reference Range Interpretation Comments GLUBED (test code = 182 mg/dL 74-106 H Performe d by certified GLUBED) filter operator at [facility] [id number] 20:48:00 Test Item Value Reference Range Interpretation Comments GLUBED (test code = 198 mg/dL 74-106 H Performe d by certified GLUBED) filter operator at [facility] [id number] 16:01:00 Test Item Value Reference Range Interpretation Comments GLUBED (test code = 177 mg/dL 74-106 H Performe d by certified GLUBED) filter operator at [facility] [id number] 11:42:00 Test Item Value Reference Range Interpretation Comments GLUBED (test code = 174 mg/dL 74-106 H Performe d by certified GLUBED) filter operator at [facility] CBC W/AUTO [id number] 06:22:00 Test Item Value Reference Range Interpretation [...] SCAN NEEDED (test code = MDIFF) DIFFERENTIAL [id number] 06:22:00 Test Item Value Reference Range Interpretation Comments STAIN ACCEPTABILITY (test STAIN ACCEPTABLE code = STN ACCEPTABLE) MORPHOLOGY COMMENT (test NORMAL code = MOC) PLATELET ESTIMATE (test code ADEQUATE = PLTEST) PLATELET MORPHOLOGY (test NORMAL code = PLTMORPH) BASIC METABOLIC [id number] 05:33:00 Test Item Value Reference Range Interpretation [...] >3 months. [Automated mess age] The system [employer] generated this result transmitted ref erence range: >=60. Th e reference range was not used to int erpret this result as normal/abnormal . CREATININE (test code 0.90 mg/dL 0.7-1.3 N = CREAT) BUN/CREATININE RATIO 11.6 10-20 N (test code = BUN/CREA) CALCIUM (test code = 8.5 mg/dL 8.5-10.1 N CA) CBC W/AUTO [id number] 05:01:00 Test Item Value Reference Range Interpretation [...] SCAN NEEDED (test code = MDIFF) DIFFERENTIAL [id number] 05:01:00 Test Item Value Reference Range Interpretation Comments STAIN ACCEPTABILITY (test code = STN ACCEPTABLE) CABOT RINGS (test code = CAB) MORPHOLOGY COMMENT (test code = MOC) PLATELET ESTIMATE (test code = PLTEST) PLATELET MORPHOLOGY (test code = PLTMORPH) CBC W/AUTO [id number] 05:01:00 Test Item Value Reference Range Interpretation [...] SCAN NEEDED (test code = MDIFF) DIFFERENTIAL [id number] 05:01:00 Test Item Value Reference Range Interpretation Comments STAIN ACCEPTABILITY (test code = STN ACCEPTABLE) CABOT RINGS (test code = CAB) MORPHOLOGY COMMENT (test code = MOC) PLATELET ESTIMATE (test code = PLTEST) PLATELET MORPHOLOGY (test code = PLTMORPH) CBC W/AUTO [id number] 05:01:00 Test Item Value Reference Range Interpretation [...] SCAN NEEDED (test code = MDIFF) DIFFERENTIAL [id number] 05:01:00 Test Item Value Reference Range Interpretation Comments STAIN ACCEPTABILITY (test code = STN ACCEPTABLE) MORPHOLOGY COMMENT (test code = MOC) PLATELET ESTIMATE (test code = PLTEST) PLATELET MORPHOLOGY (test code = PLTMORPH) CBC W/AUTO [id number] 05:01:00 Test Item Value Reference Range Interpretation [...] SCAN NEEDED (test code = MDIFF) DIFFERENTIAL [id number] 05:01:00 Test Item Value Reference Range Interpretation Comments STAIN ACCEPTABILITY (test code = STN ACCEPTABLE) CABOT RINGS (test code = CAB) MORPHOLOGY COMMENT (test code = MOC) PLATELET ESTIMATE (test code = PLTEST) PLATELET MORPHOLOGY (test code = PLTMORPH) [id number] 21:00:00 Test Item Value Reference Range Interpretation Comments GLUBED (test code = 211 mg/dL 74-106 H Performe d by certified GLUBED) filter operator at [facility] [id number] 16:29:00 Test Item Value Reference Range Interpretation Comments GLUBED (test code = 158 mg/dL 74-106 H Performe d by certified GLUBED) filter operator at [facility] [id number] 11:57:00 Test Item Value Reference Range Interpretation Comments GLUBED (test code = 101 mg/dL 74-106 N Performe d by certified GLUBED) filter operator at [facility] CBC W/AUTO [id number] 09:46:00 Test Item Value Reference Range Interpretation [...] SCAN NEEDED (test code = MDIFF) DIFFERENTIAL [id number] 09:46:00 Test Item Value Reference Range Interpretation Comments STAIN ACCEPTABILITY (test STAIN ACCEPTABLE code = STN ACCEPTABLE) MORPHOLOGY COMMENT (test NORMAL code = MOC) PLATELET ESTIMATE (test code ADEQUATE = PLTEST) PLATELET MORPHOLOGY (test NORMAL code = PLTMORPH) [id number] 08:20:00 Test Item Value Reference Range Interpretation Comments GLUBED (test code = 257 mg/dL 74-106 H Performe d by certified GLUBED) filter operator at [facility] BASIC METABOLIC [id number] 07:03:00 Test Item Value Reference Range Interpretation [...] >3 months. [Automated mess age] The system [employer] generated this result transmitted ref erence range: >=60. Th e reference range was not used to int erpret this result as normal/abnormal . CREATININE (test code 0.90 mg/dL 0.7-1.3 N = CREAT) BUN/CREATININE RATIO 11.7 10-20 N (test code = BUN/CREA) CALCIUM (test code = 8.6 mg/dL 8.5-10.1 N CA) CBC W/AUTO [id number] 05:51:00 Test Item Value Reference Range Interpretation [...] SCAN NEEDED (test code = MDIFF) DIFFERENTIAL [id number] 05:51:00 Test Item Value Reference Range Interpretation Comments STAIN ACCEPTABILITY (test code = STN ACCEPTABLE) CABOT RINGS (test code = CAB) MORPHOLOGY COMMENT (test code = MOC) PLATELET ESTIMATE (test code = PLTEST) PLATELET MORPHOLOGY (test code = PLTMORPH) CBC W/AUTO [id number] 05:51:00 Test Item Value Reference Range Interpretation [...] SCAN NEEDED (test code = MDIFF) DIFFERENTIAL [id number] 05:51:00 Test Item Value Reference Range Interpretation Comments STAIN ACCEPTABILITY (test code = STN ACCEPTABLE) CABOT RINGS (test code = CAB) MORPHOLOGY COMMENT (test code = MOC) PLATELET ESTIMATE (test code = PLTEST) PLATELET MORPHOLOGY (test code = PLTMORPH) CBC W/AUTO [id number] 05:51:00 Test Item Value Reference Range Interpretation [...] SCAN NEEDED (test code = MDIFF) DIFFERENTIAL [id number] 05:51:00 Test Item Value Reference Range Interpretation Comments STAIN ACCEPTABILITY (test code = STN ACCEPTABLE) MORPHOLOGY COMMENT (test code = MOC) PLATELET ESTIMATE (test code = PLTEST) PLATELET MORPHOLOGY (test code = PLTMORPH) CBC W/AUTO [id number] 05:51:00 Test Item Value Reference Range Interpretation [...] SCAN NEEDED (test code = MDIFF) DIFFERENTIAL [id number] 05:51:00 Test Item Value Reference Range Interpretation Comments STAIN ACCEPTABILITY (test code = STN ACCEPTABLE) CABOT RINGS (test code = CAB) MORPHOLOGY COMMENT (test code = MOC) PLATELET ESTIMATE (test code = PLTEST) PLATELET MORPHOLOGY (test code = PLTMORPH) [id number] 16:50:00 Test Item Value Reference Range Interpretation Comments GLUBED (test code 215 mg/dL 74-106 H Performed by certified = GLUBED[facility] [id number] 12:01:00 Test Item Value Reference Range Interpretation Comments GLUBED (test code 187 mg/dL 74-106 H Performed by certified = GLUBED[facility] [id number] 20:23:00 Test Item Value Reference Range Interpretation Comments GLUBED (test code = 232 mg/dL 74-106 H Performe d by certified GLUBED) filter operator at [facility] [id number] 16:36:00 Test Item Value Reference Range Interpretation Comments GLUBED (test code = 180 mg/dL 74-106 H Performe d by certified GLUBED) filter operator at [facility] [id number] 12:14:00 Test Item Value Reference Range Interpretation Comments GLUBED (test code = 221 mg/dL 74-106 H Performe d by certified GLUBED) filter operator at [facility] [id number] 08:41:00 Test Item Value Reference Range Interpretation Comments GLUBED (test code = 228 mg/dL 74-106 H Performe d by certified GLUBED) filter operator at [facility] CBC W/AUTO [id number] 06:22:00 Test Item Value Reference Range Interpretation [...] SCAN NEEDED (test code = MDIFF) DIFFERENTIAL [id number] 06:22:00 Test Item Value Reference Range Interpretation Comments STAIN ACCEPTABILITY (test STAIN ACCEPTABLE code = STN ACCEPTABLE) POLYCHROMASIA (test code = 1+ POLC) PLATELET ESTIMATE (test code ADEQUATE = PLTEST) PLATELET MORPHOLOGY (test NORMAL code = PLTMORPH) BASIC METABOLIC [id number] 05:57:00 Test Item Value Reference Range Interpretation [...] >3 months. [Automated mess age] The system [employer] generated this result transmitted ref erence range: >=60. Th e reference range was not used to int erpret this result as normal/abnormal . CREATININE (test code 0.80 mg/dL 0.7-1.3 N = CREAT) BUN/CREATININE RATIO 11.9 10-20 N (test code = BUN/CREA) CALCIUM (test code = 8.3 mg/dL 8.5-10.1 L CA) CBC W/AUTO [id number] 05:37:00 Test Item Value Reference Range Interpretation [...] SCAN NEEDED (test code = MDIFF) DIFFERENTIAL [id number] 05:37:00 Test Item Value Reference Range Interpretation Comments STAIN ACCEPTABILITY (test code = STN ACCEPTABLE) CABOT RINGS (test code = CAB) MORPHOLOGY COMMENT (test code = MOC) PLATELET ESTIMATE (test code = PLTEST) PLATELET MORPHOLOGY (test code = PLTMORPH) CBC W/AUTO [id number] 05:37:00 Test Item Value Reference Range Interpretation [...] SCAN NEEDED (test code = MDIFF) DIFFERENTIAL [id number] 05:37:00 Test Item Value Reference Range Interpretation Comments STAIN ACCEPTABILITY (test code = STN ACCEPTABLE) CABOT RINGS (test code = CAB) MORPHOLOGY COMMENT (test code = MOC) PLATELET ESTIMATE (test code = PLTEST) PLATELET MORPHOLOGY (test code = PLTMORPH) CBC W/AUTO [id number] 05:37:00 Test Item Value Reference Range Interpretation [...] SCAN NEEDED (test code = MDIFF) DIFFERENTIAL [id number] 05:37:00 Test Item Value Reference Range Interpretation Comments STAIN ACCEPTABILITY (test code = STN ACCEPTABLE) MORPHOLOGY COMMENT (test code = MOC) PLATELET ESTIMATE (test code = PLTEST) PLATELET MORPHOLOGY (test code = PLTMORPH) CBC W/AUTO [id number] 05:37:00 Test Item Value Reference Range Interpretation [...] SCAN NEEDED (test code = MDIFF) DIFFERENTIAL [id number] 05:37:00 Test Item Value Reference Range Interpretation Comments STAIN ACCEPTABILITY (test code = STN ACCEPTABLE) CABOT RINGS (test code = CAB) MORPHOLOGY COMMENT (test code = MOC) PLATELET ESTIMATE (test code = PLTEST) PLATELET MORPHOLOGY (test code = PLTMORPH) [id number] 16:06:00 Test Item Value Reference Range Interpretation Comments GLUBED (test code 237 mg/dL 74-106 H Performed by certified = GLUBED[facility] [id number] 12:35:00 Test Item Value Reference Range Interpretation Comments GLUBED (test code 271 mg/dL 74-106 H Performed by certified = GLUBED) [facility] [id number] 08:08:00 Test Item Value Reference Range Interpretation Comments GLUBED (test code 233 mg/dL 74-106 H Performed by certified = GLUBED) [facility] CBC W/AUTO [id number] 07:56:00 Test Item Value Reference Range Interpretation [...] SCAN NEEDED (test code = MDIFF) DIFFERENTIAL [id number] 07:56:00 Test Item Value Reference Range Interpretation Comments STAIN ACCEPTABILITY (test STAIN ACCEPTABLE code = STN ACCEPTABLE) MORPHOLOGY COMMENT (test NORMAL code = MOC) PLATELET ESTIMATE (test code ADEQUATE = PLTEST) PLATELET MORPHOLOGY (test NORMAL code = PLTMORPH) COMPREHENSIVE METABOLIC [id number] 05:54:00 Test Item Value Reference Range Interpretation [...] >3 months. [Automated mess age] The system [employer] generated this result transmitted ref erence range: [...] ALKP) to change in reagent. CBC W/AUTO [id number] 05:12:00 Test Item Value Reference Range Interpretation [...] SCAN NEEDED (test code = MDIFF) DIFFERENTIAL [id number] 05:12:00 Test Item Value Reference Range Interpretation Comments STAIN ACCEPTABILITY (test code = STN ACCEPTABLE) MORPHOLOGY COMMENT (test code = MOC) PLATELET ESTIMATE (test code = PLTEST) PLATELET MORPHOLOGY (test code = PLTMORPH) CBC W/AUTO [id number] 05:12:00 Test Item Value Reference Range Interpretation [...] SCAN NEEDED (test code = MDIFF) DIFFERENTIAL [id number] 05:12:00 Test Item Value Reference Range Interpretation Comments STAIN ACCEPTABILITY (test code = STN ACCEPTABLE) CABOT RINGS (test code = CAB) MORPHOLOGY COMMENT (test code = MOC) PLATELET ESTIMATE (test code = PLTEST) PLATELET MORPHOLOGY (test code = PLTMORPH) CBC W/AUTO [id number] 05:11:00 Test Item Value Reference Range Interpretation [...] SCAN NEEDED (test code = MDIFF) DIFFERENTIAL [id number] 05:11:00 Test Item Value Reference Range Interpretation Comments STAIN ACCEPTABILITY (test code = STN ACCEPTABLE) CABOT RINGS (test code = CAB) MORPHOLOGY COMMENT (test code = MOC) PLATELET ESTIMATE (test code = PLTEST) PLATELET MORPHOLOGY (test code = PLTMORPH) CBC W/AUTO [id number] 05:11:00 Test Item Value Reference Range Interpretation [...] SCAN NEEDED (test code = MDIFF) DIFFERENTIAL [id number] 05:11:00 Test Item Value Reference Range Interpretation Comments STAIN ACCEPTABILITY (test code = STN ACCEPTABLE) CABOT RINGS (test code = CAB) MORPHOLOGY COMMENT (test code = MOC) PLATELET ESTIMATE (test code = PLTEST) PLATELET MORPHOLOGY (test code = PLTMORPH) [id number] 20:37:00 Test Item Value Reference Range Interpretation Comments GLUBED (test code = 297 mg/dL 74-106 H Performe d by certified GLUBED) filter operator at [facility] URINALYSIS [id number] 17:21:00 Test Item Value Reference Range Interpretation [...] (test code = AMORU) Urine Source? Clean [id number] 16:41:00 Test Item Value Reference Range Interpretation Comments GLUBED (test code = 234 mg/dL 74-106 H Performe d by certified GLUBED) filter operator at [facility] COMPREHENSIVE METABOLIC [id number] 12:38:00 Test Item Value Reference Range Interpretation [...] GLOMERULAR FILTRATION > 60 mL/min See_Comment Estima anntia GFR by RATE (test code = using Yue fied MDRD GFR) formula.Chronic kidney disease is defined as eith er kidney damageor GFR <60 mL/min/1.73 m2 for >3 months. [Automated mess age] The system [employer] generated this result transmitted ref erence range: [...] range due ALKP) to change in reagent. [id number] 11:38:00 Test Item Value Reference Range Interpretation Comments GLUBED (test code = 237 mg/dL 74-106 H Performe d by certified GLUBED) filter operator at [facility] LIPID PROFILE (CORONARY RISK)2020-08-30 09:41:00 Test [...] is a direct measurement.=== ====== THYROID STIMULATING [id number] 09:41:00 Test Item Value Reference Range Interpretation Comments THYROID STIMULATING 2.255 uIU/mL 0.36-3.74 N TSH REFE RENCE HORMONE (test code = RANGES: EUTHYROID: TSH) 0.35 - 4.3 mIU/mL HYPO : > 5.5 mIU/mL HYPER : < 0.35 mIU/mL CBC W/AUTO [id number] 09:11:00 Test Item Value Reference Range Interpretation [...] SCAN NEEDED (test code = MDIFF) DIFFERENTIAL [id number] 09:11:00 Test Item Value Reference Range Interpretation Comments STAIN ACCEPTABILITY (test STAIN ACCEPTABLE code = STN ACCEPTABLE) POLYCHROMASIA (test code = 1+ POLC) HYPOCHROMIA (test code = 1+ HYPO) ANISOCYTOSIS (test code = 1+ ANISO) MICROCYTOSIS (test code = 1+ MICR) PLATELET ESTIMATE (test code ADEQUATE = PLTEST) PLATELET MORPHOLOGY (test NORMAL code = PLTMORPH) [id number] 08:40:00 Test Item Value Reference Range Interpretation Comments GLYCOSYLATED HEMOGLOBIN 11.0 % HbA1 SUGG ESTED (HA1C) (test code = DIAGNOSI S: HbA1C GLYHGB) (%) ---- ------ Diab etic >6.4Prediabetes 5.7 - 6.4Normal <5.7 ESTIMATED AVERAGE 269 MG/DL GLUCOSE (test code = EAG) CBC W/AUTO [id number] 08:23:00 Test Item Value Reference Range Interpretation [...] SCAN NEEDED (test code = MDIFF) DIFFERENTIAL [id number] 08:23:00 Test Item Value Reference Range Interpretation Comments STAIN ACCEPTABILITY (test code = STN ACCEPTABLE) CABOT RINGS (test code = CAB) MORPHOLOGY COMMENT (test code = MOC) PLATELET ESTIMATE (test code = PLTEST) PLATELET MORPHOLOGY (test code = PLTMORPH) CBC W/AUTO [id number] 08:23:00 Test Item Value Reference Range Interpretation [...] SCAN NEEDED (test code = MDIFF) DIFFERENTIAL [id number] 08:23:00 Test Item Value Reference Range Interpretation Comments STAIN ACCEPTABILITY (test code = STN ACCEPTABLE) MORPHOLOGY COMMENT (test code = MOC) PLATELET ESTIMATE (test code = PLTEST) PLATELET MORPHOLOGY (test code = PLTMORPH) CBC W/AUTO [id number] 08:22:00 Test Item Value Reference Range Interpretation [...] SCAN NEEDED (test code = MDIFF) DIFFERENTIAL [id number] 08:22:00 Test Item Value Reference Range Interpretation Comments STAIN ACCEPTABILITY (test code = STN ACCEPTABLE) CABOT RINGS (test code = CAB) MORPHOLOGY COMMENT (test code = MOC) PLATELET ESTIMATE (test code = PLTEST) PLATELET MORPHOLOGY (test code = PLTMORPH) CBC W/AUTO [id number] 08:22:00 Test Item Value Reference Range Interpretation [...] SCAN NEEDED (test code = MDIFF) DIFFERENTIAL [id number] 08:22:00 Test Item Value Reference Range Interpretation Comments STAIN ACCEPTABILITY (test code = STN ACCEPTABLE) CABOT RINGS (test code = CAB) MORPHOLOGY COMMENT (test code = MOC) PLATELET ESTIMATE (test code = PLTEST) PLATELET MORPHOLOGY (test code = PLTMORPH) - CT ABD PELVIS [id number] 20:38:00 [facility])Name: RAN EVERETT : 1975 Sex: M Name: RAN EVERETT [facility] : Age/S: 44 / M [address] [facility] Unit #: [id number] Loc: [place] [address] Phys: Ban Arnold NP Acct: [id number] Dis Date: Status: REG ER PHONE #: [phone] Exam Date: 08/29/20202022 FAX #: [phone] 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, isidro EXAMS: CPT CODE: [id number] CT ABD PELVIS W/CONT [id number] EXAM: CT of the abdomen and pelvis [...] CT CTDI: DLP: Trnscb Date/Time: 08/29/2020 (2037) Antony Orig Print D/T: S: 08/29/2020 (2040) PAGE 1 Signed Report- XR CHEST 1 V 2020-08-29 20:14:00 [facility])Name: RAN EVERETT : 1975 Sex: M FAX: Ban Arnold NP [place]: St: REG Name: RAN EVERETT [facility] : 1975 Age/S: 44/M [address] [facility] Unit #: [id number] Loc: [place] [address] Phys: Ban Arnold NP Acct: [id number] Dis Date: Status: REG ER PHONE #: [phone] Exam Date: 08/29/20201918 FAX #: [phone] Reason: CODE SEPSIS EXAMS: CPT CODE: [id number] XR CHEST 1 V [id number] EXAM: Chest X- ray, 1 view; CLINICAL HISTORY: Code sepsis; FINDINGS: The lungs are clear, no infiltrates, no edema; no effusions; no pneumothorax; normal cardiomediastinal silhouette. Old, consolidated fractures of the 6th and 7th ribs on the right. IMPRESSION: No evidence of active cardiopulmonary disease. Location code: [facility] at 2014 Reported and signed by: Pillo Basilio M.D. CC: Ban Arnold NP Technologist: Heather Rush RT(R) Trnscrd Date/Time/By: 08/29/2020 (2013) : By: Antony Orig Print D/T: S: 08/29/2020 (2018) PAGE 1 Signed ReportCOVID 19 INHOUSE [id number] 20:02:00 Test Item Value Reference Range Interpretation Comments COVID 19 INHOUSE AG (test code = NEGATIVE NEGATIVE [id number]) BASIC METABOLIC [id number] 19:53:00 Test Item Value Reference Range Interpretation [...] >3 months. [Automated mess age] The system [employer] generated this result transmitted ref erence range: >=60. Th e reference range was not used to int erpret this result as normal/abnormal . CREATININE (test 1.00 mg/dL 0.7-1.3 N code = CREAT) BUN/CREATININE RATIO 11.6 10-20 N (test code = BUN/CREA) CALCIUM (test code = 8.5 mg/dL 8.5-10.1 N CA) HEPATIC FUNCTION [id number] 19:53:00 Test Item Value Reference Range Interpretation [...] range due ALKP) to change in reagent. [id number] 19:53:00 Test Item Value Reference Range Interpretation Comments TROPONIN-I (test code = TROPI) < 0.006 ng/mL 0-0.045 N B-TYPE NATRIURETIC [id number] 19:52:00 Test Item Value Reference Range Interpretation Comments B-TYPE NATRIURETIC PEPTIDE 20.0 pgram/mL 0-100 N (test code = BNP) LACTIC [id number] 19:33:00 Test Item Value Reference Range Interpretation Comments LACTIC ACID (test code = LACT) 1.3 mmol/L 0.4-1.9 N CBC W/AUTO [id number] 19:15:00 Test Item Value Reference Range Interpretation [...] code = 0.00 K/mm3 0.0-0.1 N NRBC#) Klein [id number] 07:04:53 Test Item Value Reference Range Interpretation Comments Klein Level (test code = 0.52 mmol/L 0.60-1.20 L Klein Level) Klein [id number] 06:31:16 Test Item Value Reference Range Interpretation Comments Klein Level (test code = 0.39 mmol/L 0.60-1.20 L Klein Level) RPR [id number] 03:58:40 Test Item Value Reference Range Interpretation [...] = 08/26/2019 N Expiration Dt) Thyroid Stimulating [id number] 02:50:00 Test Item Value Reference Range Interpretation Comments TSH (test code = TSH) 1.590 mIU/mL 0.270-4.200 Lipid [id number] 02:33:22 Test Item Value Reference Range Interpretation Comments Cholesterol Total 197 mg/dL 0-200 RISK OF HE ART (test code = DISEASEPublishe d by Cholesterol Total) [place] [employer] Lashawn lyte Optimal Borderl ine [...] LDL/HDL Ratio=L DL Calc/HDL Chol Comprehensive Metabolic [id number] 18:09:30 Test Item Value Reference Range Interpretation [...] A/G 1.6 ratio N Ratio) Comprehensive Metabolic [id number] 18:09:30 Test Item Value Reference Range Interpretation [...] National Kidney Foundation, http://nkdep.ni h.gov Comprehensive Metabolic [id number] 18:09:30 Test Item Value Reference Range Interpretation [...] ag e have not been validated by e MDRD study and should be interpreted [...] not provided, and t he patient is femelissa le, multiply by 0.7 42. Results for pat ients <18 years of ag e have not been validated by e MDRD study and should be interpreted wit h caution. eGFR R esult Interpretation: eGFR > or = 60 is in the Normal RangeeGF R < 60 may mean kid wong diseaseeGFR < 1 5 may mean kidney failure Rang es recommended by the National Kidney Foundation, http://nkdep.ni h.gov Complete Blood Count with [id number] 17:49:02 Test Item Value Reference Range Interpretation [...] code = IPF) 0 % N Automated [id number] 17:49:02 Test Item Value Reference Range Interpretation Comments Neutro Auto (test code = Neutro 60.9 % 36.0-70.0 Auto) Lymph Auto (test code = Lymph Auto) 28.2 % 12.0-44.0 [place] Auto (test code = [place] Auto) 8.0 % 0.0-11.0 Eos, Auto (test code = Eos, Auto) 1.7 % 0.0-7.0 Basophil Auto (test code = Basophil 0.7 % 0.0-2.0 Auto) Neutro Absolute (test code = Neutro 8.0 x10 1.6-7.4 H Absolute) Lymph Absolute (test code = Lymph 3.71 x10 .50-4.60 Absolute) [place] Absolute (test code = [place] 1.06 x10 .00-1.20 Absolute) Eos Absolute (test code = Eos 0.23 x10 0.00-0.74 Absolute) Baso Absolute (test code = Baso 0.09 x10 0.00-0.21 Absolute) IG [id number] 17:49:02 Test Item Value Reference Range Interpretation Comments IG (test code = IG) 0.5 % 0.0-5.0 IG Abs (test code = IG Abs) 0 x10 N Comprehensive Metabolic [id number] 13:30:37 Test Item Value Reference Range Interpretation [...] ratio N = A/G Ratio) Comprehensive Metabolic [id number] 13:30:37 Test Item Value Reference Range Interpretation [...] the National Kidney Foundation, http://nkdep.ni h.gov Alcohol [id number] 13:30:37 Test Item Value Reference Range Interpretation Comments Ethanol Level (test <0.00 g/dL 0.00-0.01 Intoxica annita 0.080 g/dL code = Ethanol or more Level) Ethanol Inst (test <0 N code = Ethanol Inst) Comprehensive Metabolic [id number] 13:30:37 Test Item Value Reference Range Interpretation [...] Foundation, http://nkdep.ni h.gov Drugs of Abuse Urine [id number] 13:26:52 Test Item Value Reference Range Interpretation [...] Cannabinoid Screen Ur) Complete Blood Count with [id number] 13:17:47 Test Item Value Reference Range Interpretation [...] code = IPF) 0 % N Automated [id number] 13:17:47 Test Item Value Reference Range Interpretation Comments Neutro Auto (test code = Neutro 67.8 % 36.0-70.0 Auto) Lymph Auto (test code = Lymph Auto) 22.2 % 12.0-44.0 [place] Auto (test code = [place] Auto) 7.3 % 0.0-11.0 Eos, Auto (test code = Eos, Auto) 1.4 % 0.0-7.0 Basophil Auto (test code = Basophil 0.7 % 0.0-2.0 Auto) Neutro Absolute (test code = Neutro 10.6 x10 1.6-7.4 H Absolute) Lymph Absolute (test code = Lymph 3.48 x10 .50-4.60 Absolute) [place] Absolute (test code = [place] 1.14 x10 .00-1.20 Absolute) Eos Absolute (test code = Eos 0.22 x10 0.00-0.74 Absolute) Baso Absolute (test code = Baso 0.11 x10 0.00-0.21 Absolute) IG [id number] 13:17:47 Test Item Value Reference Range Interpretation Comments IG (test code = IG) 0.6 % 0.0-5.0 IG Abs (test code = IG Abs) 0 x10 N
[2021-03-27] MEDS ORDERED: NA CHLORIDE 0.9% 1,000 ML ONE (15:42)
[2021-03-27 16:08] LABS: Absolute Lymphocytes (CBC) 2.8 K/uL (0.7-4.9); Hematocrit 28.8 % (39.6-49.0); Lymphocytes % 11.2 % (15.3-44.8); MPV 6.3 fL (7.6-11.3)
[2021-03-27 16:23] LABS: Protime INR 1.29
--- NOTE | 2021-03-27 16:34 | RAD REPORT ---
EXAM DESCRIPTION: RAD - Chest Single View - 03/27/2021 4:15 pm CLINICAL HISTORY: DYSPNEA COMPARISON: December 26 TECHNIQUE: AP portable chest image was obtained 03/27/2021 4:15 pm . FINDINGS: No focal mass or consolidation. Interstitial pattern, accentuated by portable technique an d large body habitus, not clearly different from comparison. Significant failure or volume overload n ot suspected. Heart and vasculature are normal. No measurable pleural effusion and no pneumothorax. No acute bony abnormality seen. Old rib trauma remodeling noted posterior mid right chest similar to comparison. No acute aortic findings suspected. IMPRESSION: No acute cardiopulmonary process. Mild interstitial edema or infiltrate could be masked by exam limitations. No significant change from comparison study.
[2021-03-27 16:47] LABS: ALT/SGPT 18 U/L (12-78); AST/SGOT 14 U/L (15-37); Albumin 2.1 g/dL (3.4-5.0); Alkaline Phosphatase 125 U/L (45-117); BUN Blood Urea Nitrogen 11 mg/dL (7-18); Bicarbonate 27 mmol/L (21-32); Bilirubin Direct < 0.1 mg/dL (0-0.2); Bilirubin Total 0.2 mg/dL (0.2-1.0); Glucose Level 88 mg/dL (74-106); Potassium 3.8 mmol/L (3.5-5.1); Protein, Total 8.6 g/dL (6.4-8.2); Sodium Level 135 mmol/L (136-145); Troponin (Emerg Dept Use Only) < 0.02 ng/mL (0.0-0.045)
[2021-03-27] MEDS ORDERED: ONDANSETRON 4 MG/2 ML VIAL ONE (17:41)
[2021-03-27] MEDS ORDERED: MORPHINE 4 MG/ML SYR ONE (17:41)
--- NOTE | 2021-03-27 18:05 | ER ---
Nurse's Notes [facility] Name: Yassine Guerre[facility] Jr Age: 45 yrs Sex: Male : 1975 Arrival Date: 03/27/2021 Time: 15:17 Bed 8 Private MD: Diagnosis: Elevated white blood cell count;Dehydration;Hypercalcemia Presentation: 03/27 15:17 Acuity: IRINEO 3 ss 15:17 Method Of Arrival: EMS: [facility] 15:17 Chief complaint: EMS states: generalized weakness after a syncopal episode. Pt was ss ambulatory upon EMS arrival. Also c/o pain to chronic wound and hip pain. Pt reports he is out of his pain medication. 15:35 Coronavirus screen: At this time, the client does not indicate any symptoms associated ap3 with coronavirus-19. Ebola Screen: No symptoms or risks identified at this time. Initial Sepsis Screen:. Risk Assessment: Do you want to hurt yourself or someone else? Patient reports no desire to harm self or others. Onset of symptoms was March 27, 2021. Care prior to arrival: IV initiated. 20 GA, in the right forearm. 15:36 Initial Sepsis Screen: Does the patient have a suspected source of infection?. ap3 16:18 Initial Sepsis Screen: Does the patient meet any 2 criteria? No. Patient's initial ap3 sepsis screen is negative. Does the patient have a suspected source of infection? No. Patient's initial sepsis screen is negative. 20:44 Note Verbal order received from Dr. Zhanna Urbinaid 2mg IV x 1. df1 21:00 Note Large open draining clear yellow fluid from left hip bone to groin. Vaseline gauze df1 and abd applied. No bleeding noted. Historical: - Allergies: 21:33 No Known Allergies; df1 - PMHx: 15:32 Bipolar disorder; CPVC; HPV; PTSD; Rheumatoid Arthritis; ap3 - PSHx: 15:32 Lymphnode removal; ap3 - Immunization history:: Adult Immunizations up to date. - Social history:: Smoking status: Patient denies any tobacco usage or history of. Screenin:33 Abuse screen: Denies threats or abuse. Nutritional screening: patient has a CA ap3 diagnosis, but has yet to start Chemo or Radiatioin. Tuberculosis screening: No symptoms or risk factors identified. Fall Risk Fall in past 12 months (25 points). Secondary diagnosis (15 points) impaired mobility, IV access (20 points). Gait- Weak (10 pts.). Mental Status- Oriented to own ability (0 pts). Total Renteria Fall Scale indicates High Risk Score (45 or more points). Fall prevention measures have been instituted. Side Rails Up X 2 Placed Close to Nursing Station Frequent Obs/Assessments Occuring As available patient and family educated on Fall Prevention Program and Strategies. Assessment: 15:28 General: Appears in no apparent distress. comfortable, Behavior is calm, cooperative, ap3 appropriate for age. General: patient states that he has been having a hard time getting into see his provider for a follow up biopsy. Patient states he has yet to start Chemo or Radiation, because his provider needs to know if the cancer has been spreading or not. Patient states he also has a upcoming colonoscopy.. Pain: Complains of pain in left femoral area, left inguinal area and left iliac crest. Neuro: Level of Consciousness is awake, alert, obeys commands, Oriented to person, place, time, situation, Appropriate for age Speech is normal. Cardiovascular: Patient's skin is warm and dry. Respiratory: Airway is patent Respiratory effort is even, unlabored, Respiratory pattern is regular, symmetrical. GI: Abdomen is round. Derm: Wound noted left femoral area, left inguinal area and left iliac crest Other: cancer lesion present. Musculoskeletal: Reports weakness in generalized. 17:16 Reassessment: patient provided with urinal and instructions on proper urine collection. ap3 Patient verbalized understanding. 18:10 Reassessment: No changes from previously documented assessment. Patient and/or family jd3 updated on plan of care and expected duration. Pain level reassessed. Patient is alert, oriented x 3, equal unlabored respirations, skin warm/dry/pink. 19:29 General: Appears obese, unkempt, Behavior is calm, cooperative, appropriate for age, tw5 Reports " I have a cancerous growth on my hip that bleeds a lot and has a lot of seepage. I ran out of my medication for it, and I have been passing out. Basically that is why I am here.". Vital Signs: 16:13 BP 111 / 62; Pulse 120; Resp 17; Temp 97.8(TE); Pulse Ox 98% on R/A; Weight 113.4 kg; ap3 Height 5 ft. 10 in. (177.80 cm); Pain 7/10; 17:16 BP 116 / 70; Pulse 102; Resp 17; Pulse Ox 97% on R/A; ap3 19:29 BP 119 / 86; Pulse 118; Resp 20; Pulse Ox 94% ; Pain 6/10; tw5 20:42 BP 139 / 78; Pulse 105; Resp 18; Pulse Ox 94% on R/A; Pain 8/10; df1 16:13 Body Mass Index 35.87 (113.40 kg, 177.80 cm) ap3 ED Course: 15:17 Patient arrived in ED. ss 15:17 Triage completed. ss 15:21 Yfn Suarez PA is PHCP. jr8 15:21 Beto Cortez MD is Attending Physician. jr8 15:28 Fay Baca, ZULAY is Primary Nurse. ap3 15:34 Nurse Practitioner and/or Physician Machine Cell Tuber to see patient. ap3 15:34 Arm band placed on right wrist. ap3 15:34 Patient has correct armband on for positive identification. Placed in gown. Bed in low ap3 position. Call light in reach. Side rails up X2. cafeteria monitor on. Pulse ox on. NIBP on. Door closed. Noise minimized. Warm blanket given. 16:14 XRAY Chest (1 view) In Process Unspecified. EDMS 16:39 EKG done, by ED staff, reviewed by Yfn MCKINNEY. ap3 16:50 First set of blood cultures drawn by me. ap3 17:06 Repeat lab(s) drawn. by me, sent to lab. Second set of blood cultures drawn by la, ap3 COVID swab sent to lab. 18:04 Lito Chao MD is Hospitalizing Provider. jr8 19:29 Primary Nurse role handed off by Fay Baca, RN tw5 19:29 Rosa Carvalho is Primary Nurse. tw5 20:43 Urine Culture Sent. df1 20:59 No provider procedures requiring assistance completed. Patient admitted, IV remains in df1 place. 20:59 Dressings: ABD pad X 4; groin, left femoral area, left inguinal area and left iliac df1 crest Vaseline gauze X 4; groin, left femoral area, left inguinal area and left iliac crest. Administered Medications: 16:04 Drug: NS 0.9% 1000 ml Route: IV; Rate: 1000 ml; Site: right forearm; ap3 17:45 Drug: morphine 4 mg Route: IVP; Site: right antecubital; jd3 18:45 Follow up: Response: No adverse reaction; RASS: Alert and Calm (0) jd3 17:45 Drug: Zofran (Ondansetron) 4 mg Route: IVP; Site: right antecubital; jd3 18:45 Follow up: Response: No adverse reaction jd3 20:44 Drug: Dilaudid (HYDROmorphone) 2 mg Route: IVP; Site: right antecubital; df1 Outcome: 18:04 Decision to Hospitalize by Provider. jr8 21:05 Admitted to Med/surg accompanied by tech. df1 21:05 Condition: stable 21:05 Instructed on the need for admit. 22:04 Patient left the ED. df1 Signatures: Dispatcher [employer] EDMS Oriana Urbina RN RN ss Roszak, Josh, PA PA jr8 Dick Guerrero RN RN jd3 Prokisch, Amanda, RN RN ap3 Furlich, Dawn df1 Rosa Carvalho 5
--- NOTE | 2021-03-27 18:05 | EDPHYS ---
Physician Documentation [facility] Name: Yassine Guerrero Jr Age: 45 yrs Sex: Male : 1975 Arrival Date: 03/27/2021 Time: 15:17 Bed 8 Private MD: ED Physician Beto Cortez HPI: 03/27 16:28 This 45 yrs old Male presents to ER via EMS with complaints of Syncope. 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 Patient stated that he was finishing lunch and the next thing he remembers is his son shaking him telling him to wake up. Patient stated that he has been feeling fine otherwise up until that point. Patient did note that he has had a few days of diarrhea without any vomiting or abdominal pain. Mild dizziness post incident but otherwise denies any other symptoms at this time.. Historical: - Allergies: 21:33 No Known Allergies; df1 - PMHx: 15:32 Bipolar disorder; CPVC; HPV; PTSD; Rheumatoid Arthritis; ap3 - PSHx: 15:32 Lymphnode removal; ap3 - Immunization history:: Adult Immunizations up to date. - Social history:: Smoking status: Patient denies any tobacco usage or history of. ROS: 16:28 Eyes: Negative for injury, pain, redness, and discharge, ENT: Negative for injury, jr8 pain, and discharge, Neck: Negative for injury, pain, and swelling, Cardiovascular: Negative for chest pain, palpitations, and edema, Respiratory: Negative for shortness of breath, cough, wheezing, and pleuritic chest pain, Abdomen/GI: Negative for abdominal pain, nausea, vomiting, diarrhea, and constipation, Back: Negative for injury and pain, MS/Extremity: Negative for injury and deformity, Skin: Negative for injury, rash, and discoloration. 16:28 Neuro: Positive for dizziness, syncope. Exam: 16:28 Constitutional: This is a well developed, well nourished patient who is awake, alert, jr8 and in no acute distress. Eyes: Pupils equal round and reactive to light, extra-ocular motions intact. Lids and lashes normal. Conjunctiva and sclera are non-icteric and not injected. Cornea within normal limits. Periorbital areas with no swelling, redness, or edema. ENT: Nares patent. No nasal discharge, no septal abnormalities noted. Tympanic membranes are normal and external auditory canals are clear. Oropharynx with no redness, swelling, or masses, exudates, or evidence of obstruction, uvula midline. Mucous membranes moist. Neck: Trachea midline, no thyromegaly or masses palpated, and no cervical lymphadenopathy. Supple, full range of motion without nuchal rigidity, or vertebral point tenderness. No Meningismus. 16:28 Respiratory: Lungs have equal breath sounds bilaterally, clear to auscultation and percussion. No rales, rhonchi or wheezes noted. No increased work of breathing, no retractions or nasal flaring. Abdomen/GI: Soft, non-tender, with normal bowel sounds. No distension or tympany. No guarding or rebound. No evidence of tenderness throughout. Skin: Warm, dry with normal turgor. Normal color with no rashes, no lesions, and no evidence of cellulitis. Neuro: Awake and alert, GCS 15, oriented to person, place, time, and situation. Cranial nerves II-XII grossly intact. Motor strength 5/5 in all extremities. Sensory grossly intact. 16:28 Cardiovascular: Rate: tachycardic, Rhythm: regular, Pulses: Pulses are 2+ in right radial artery and left radial artery. Heart sounds: normal, normal S1and S2, no S3 or S4, no murmur, no rub, no gallop, Edema: is not appreciated. 16:28 Musculoskeletal/extremity: Extremities: grossly normal except: noted in the left leg: Large fungating mass to the upper left leg in the inguinal crease without any bleeding or discharge.. Vital Signs: 16:13 BP 111 / 62; Pulse 120; Resp 17; Temp 97.8(TE); Pulse Ox 98% on R/A; Weight 113.4 kg; ap3 Height 5 ft. 10 in. (177.80 cm); Pain 7/10; 17:16 BP 116 / 70; Pulse 102; Resp 17; Pulse Ox 97% on R/A; ap3 19:29 BP 119 / 86; Pulse 118; Resp 20; Pulse Ox 94% ; Pain 6/10; tw5 20:42 BP 139 / 78; Pulse 105; Resp 18; Pulse Ox 94% on R/A; Pain 8/10; df1 16:13 Body Mass Index 35.87 (113.40 kg, 177.80 cm) ap3 MDM: 15:21 Patient medically screened. [facility] 18:00 Data reviewed: vital signs, nurses notes, lab test result(s), EKG, radiologic studies, jr8 plain films. Data interpreted: Pulse oximetry: on room air is 97 %. Interpretation: normal. Counseling: I had a detailed discussion with the patient and/or guardian regarding: the historical points, exam findings, and any diagnostic results supporting the discharge/admit diagnosis, lab results, radiology results, the need for further work-up and treatment in the hospital. ED course: This case with Dr. Chao who will see patient will admit for observation and continue fluids.. 03/27 15:39 Order name: Basic Metabolic Panel; Complete Time: 16:59 [facility] 03/27 15:39 Order name: CBC with Diff; Complete Time: 21:53 [facility] 03/27 15:39 Order name: LFT's; Complete Time: 16:59 [facility] 03/27 15:39 Order name: Magnesium; Complete Time: 16:59 [facility] 03/27 15:39 Order name: PT-INR; Complete Time: 16:33 [facility] 03/27 15:39 Order name: Troponin (emerg Dept Use Only); Complete Time: 16:59 [facility] 03/27 16:34 Order name: Blood Culture Adult (2) [facility] 03/27 16:34 Order name: Procal; Complete Time: 18:52 [facility] 03/27 16:34 Order name: Lactate; Complete Time: 17:53 [facility] 03/27 16:34 Order name: Urine Microscopic Only; Complete Time: 20:44 [facility] 03/27 16:36 Order name: COVID-19 SARS RT PCR (Document "Date of Onset" if Symptomatic); Complete [facility] Time: 19:32 03/27 19:40 Order name: Urine Dipstick-Ancillary; Complete Time: 19:47 [facility] 03/27 20:06 Order name: CBC with Automated Diff [facility] 03/27 20:06 Order name: Comprehensive Metabolic Panel [facility] 03/27 15:39 Order name: XRAY Chest (1 view); Complete Time: 16:35 [facility] 03/27 15:39 Order name: EKG; Complete Time: 15:40 [facility] 03/27 20:06 Order name: Comprehensive Metabolic Panel [facility] 03/27 20:06 Order name: Comprehensive Metabolic Panel [facility] 03/27 20:06 Order name: Comprehensive Metabolic Panel [facility] 03/27 20:06 Order name: CBC with Automated Diff [facility] 03/27 20:06 Order name: CBC with Automated Diff [facility] 03/27 20:06 Order name: CBC with Automated Diff ED[facility] 03/27 20:12 Order name: Urine Culture [facility] 03/27 21:43 Order name: CBC with Automated Diff; Complete Time: 21:53 [facility] 03/27 21:45 Order name: CBC Smear Scan; Complete Time: 21:53 [facility] 03/27 21:59 Order name: Comprehensive Metabolic Panel; Complete Time: 22:29 [facility] 03/27 15:39 Order name: Cardiac monitoring; Complete Time: 15:39 [facility] 03/27 15:39 Order name: EKG - Nurse/Tech; Complete Time: 16:35 [facility] 03/27 15:39 Order name: IV Saline Lock; Complete Time: 16:04 [facility] 03/27 15:39 Order name: Labs collected and sent; Complete Time: 16:04 [facility] 03/27 15:39 Order name: O2 Per Protocol; Complete Time: 15:39 [facility] 03/27 15:39 Order name: O2 Sat Monitoring; Complete Time: 15:39 [facility] 03/27 20:06 Order name: CONS Physician Consult; Complete Time: 20:43 [facility] 03/27 20:07 Order name: 75g Consistent Carbohydrate (ADA 2200) EDMS Administered Medications: 16:04 Drug: NS 0.9% 1000 ml Route: IV; Rate: 1000 ml; Site: right forearm; ap3 17:45 Drug: morphine 4 mg Route: IVP; Site: right antecubital; jd3 18:45 Follow up: Response: No adverse reaction; RASS: Alert and Calm (0) jd3 17:45 Drug: Zofran (Ondansetron) 4 mg Route: IVP; Site: right antecubital; jd3 18:45 Follow up: Response: No adverse reaction jd3 20:44 Drug: Dilaudid (HYDROmorphone) 2 mg Route: IVP; Site: right antecubital; df1 Disposition: 03/28 09:20 I agree with the assessment and plan of care. richardson Disposition Summary: 03/27/21 18:04 Hospitalization Ordered Hospitalization Status: Observation jr8 Provider: Lito Chao Location: Telemetry/MedSurg (observation) jr8 Condition: Stable jr8 Problem: new jr8 Symptoms: have improved jr8 Bed/Room Type: Standard [facility] Room Assignment: 405(03/27/21 20:14) cg Diagnosis - Elevated white blood cell count jr8 - Dehydration jr8 - Hypercalcemia jr8 Forms: - Medication Reconciliation Form jr8 - SBAR form jr8 Signatures: Dispatcher [employer] EDBeto Mcknight MD MD cha Roszak, Josh, PA PA jr8 Aury Johnston RN RN Dick Sanches RN RN Fay Soler RN RN ap3 Shira Maguire df1 Corrections: (The following items were deleted from the chart) 03/27 20:14 18:04 jr8
[2021-03-27 19:40] LABS: Urine Blood Negative (Negative); Urine Glucose Negative (Negative); Urine Protein Negative (Negative)
[2021-03-27] MEDS ORDERED: D5 0.45 NS 1,000 ML IV ONE (20:03)
[2021-03-27] MEDS ORDERED: HYDROMORPHONE HCL 2 MG/ML inj ONE (20:03)
[2021-03-27 20:11] LABS: Urine Amorphous Sediment 2+ /HPF (NONE SEEN); Urine Bacteria <20 /HPF (NONE SEEN); Urine Mucus 2+ /HPF (NONE SEEN); Urine RBC <5 /HPF (NONE SEEN)
--- NOTE | 2021-03-27 20:12 | P.HP ---
Certification for Inpatient Patient admitted to: Observation With expected LOS: <2 Midnights Patient will require the following post-hospital care: None Practitioner: I am a practitioner with admitting privileges, knowledge of patient current condition, hospital course, and medical plan of care. 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 He has had this for several years. Recently moved to the area. Has been trying to get treatment. Today he called about a syncopal episode. He has chronic bleeding from the mass on his thigh. The patient was not able to get transportation to the hospital lab department. As he sometime becomes severely anemic due to the cancer the patient was instructed to come to the ER. He was found to be tachycadic with an elevfated wbc. The patient has some trace leukocytes in his urine. Which is not significant for the level of his wbc. Is not anemic. Allergies No Known Allergies Allergy (Verified 11/07/20 22:07) Home Medications: Ciprofloxacin HCl [Cipro 500 MG Tablet] 500 mg PO BID #14 tab 11/09/20 Gabapentin 300 mg PO TID #90 capsule 11/09/20 Glipizide [Glipizide ER] 5 mg PO DAILY #30 tab.er.24 11/09/20 Hydrocodone 10/APAP 325 [[place] 10/325*] 2 tab PO Q4H PRN #60 tab 11/09/20 Metformin HCl 500 mg PO BID #60 tablet 11/09/20 Sodium Hypochlorite [Dakin's] 473 ml MC DAILY #1 bottle 11/09/20 metroNIDAZOLE [Flagyl*] 500 mg PO Q8H #21 tablet 11/09/20 Surgicel 1 unit TOP PRN #5 11/10/20 Sulfamethoxazole/Trimethoprim [Bactrim Ds Tablet] 1 each PO BID 7 Days #14 tablet 12/29/20 - Past Medical/Surgical History Diabetic: Yes -: Diabetes mellitus -: Rheumatoid Arthritis -: COPD -: Sleep Apnea -: None - Social History Alcohol use: No CD- Drugs: No Caffeine use: No Review of Systems 10-point ROS is otherwise unremarkable Neurological: As per HPI Physical Examination - Physical Exam General: Alert, In no apparent distress HEENT: Atraumatic, PERRLA, Mucous membr. moist/pink, EOMI, Sclerae nonicteric Neck: Supple, 2+ carotid pulse no bruit, No LAD, Without JVD or thyroid abnormality Respiratory: Clear to auscultation bilaterally, Normal air movement Cardiovascular: Regular rate/rhythm, Normal S1 S2 Gastrointestinal: Normal bowel sounds, No tenderness Musculoskeletal: No tenderness Integumentary: No rashes Neurological: Normal gait, Normal speech, Normal strength at 5/5 x4 extr, Normal tone, Normal affect Lymphatics: No axilla or inguinal lymphadenopathy - Studies Laboratory Data (last 24 hrs) 03/27/21 15:56: PT 14.9 H, INR 1.29 03/27/21 15:56: WBC 25.30 H*, Hgb 8.4 L, Hct 28.8 L, Plt Count 691 H 03/27/21 15:56: Sodium 135 L, Potassium 3.8, BUN 11, Creatinine 0.96, Glucose 88, Magnesium 2.0, Total Bilirubin 0.2, AST 14 L, ALT 18, Alkaline Phosphatase 125 H Assessment and Plan - Problems (Diagnosis) (1) Inguinal mass Current Visit: No Status: Chronic Plan: Planning for out patient lymph node biopsy. Will have him seen by Dr. Monaco. Mostly needs an out patient work up. (2) DM type 2 (diabetes mellitus, type 2) Current Visit: No Status: Chronic Plan: will restart his metformin only and an ada diet. He is not very compliant so will limit finger sticks. The patient has not been amenable to this in the past. Qualifiers: Diabetes mellitus nursing home insulin use: without nursing home use Diabetes mellitus complication status: without complication Qualified Code(s): E11.9 - Type 2 diabetes mellitus without complications (3) Tachycardia Current Visit: Yes Status: Acute Plan: May be chronic or secondary to pain. Will start with fluids. Recheck his labs in the morning to see if we uncover an anemia. Or any changes in his labs. (4) Syncope Current Visit: Yes Status: Acute Plan: will start him on fluids. await cultures of his urine and blood . Qualifiers: Syncope type: vasovagal syncope Qualified Code(s): R55 - Syncope and collapse Discharge Plan: Home Plan to discharge in: 24 Hours - Advance Directives Does patient have a Living Will: No Does patient have a Durable POA for Healthcare: No - Code Status/Comfort Care Code Status Assessed: No Code Status: Full Code Physician Review: Patient Assessed, Agree with Above Assessment and Plan Critical Care: No Time Spent Managing Pts Care (In Minutes): 70
[2021-03-27] MEDS: D5 0.45 NS 1,000 ML IV SCH (21:00)
[2021-03-27 21:37] LABS: Absolute Lymphocytes (CBC) 3.2 K/uL (0.7-4.9); Basophils % 0.8 % (0-1.3); Hematocrit 27.7 % (39.6-49.0); Lymphocytes % 14.3 % (15.3-44.8); MPV 6.7 fL (7.6-11.3); RBC Red Blood Cell Count 4.59 M/uL (4.33-5.43)
[2021-03-27 21:44] LABS: Platelet Estimate INCR; White Blood Cell Scan OK (OK)
[2021-03-27 21:45] LABS: Anisocytosis 1+; Blood Morphology Comment NOTED (NOT SEEN); Hypochromasia 2+; Polychromasia SLIGHT
[2021-03-27 21:58] LABS: Bilirubin Total 0.2 mg/dL (0.2-1.0); Potassium 3.7 mmol/L (3.5-5.1)
[2021-03-27] MEDS: METFORMIN HCL 500 MG TAB PO SCH (22:50)
[2021-03-27] MEDS: GABAPENTIN 300 MG CAP PO SCH (22:50)
[2021-03-27] MEDS: HYDROCODONE/APAP 7.5/325 MG TAB PO SCH (22:51)
[2021-03-27] MEDS: MORPHINE *EXTENDED RELEASE* 15 MG TAB PO SCH (22:51)
[2021-03-27 23:03] VITALS: O2SAT 94
[2021-03-27 23:51] VITALS: BMI 45.6
[2021-03-28] MEDS: HYDROCODONE/APAP 7.5/325 MG TAB PO SCH ×3 (02:07→15:55)
[2021-03-28] MEDS: HYDROMORPHONE HCL 2 MG/ML inj IV PRN ×3 (05:01→17:35)
[2021-03-28] MEDS: D5 0.45 NS 1,000 ML IV SCH ×3 (05:02→16:57)
[2021-03-28 06:15] LABS: Absolute Lymphocytes (CBC) 2.7 K/uL (0.7-4.9); Basophils % 0.8 % (0-1.3); Hematocrit 29.3 % (39.6-49.0); Lymphocytes % 15.2 % (15.3-44.8); MPV 6.6 fL (7.6-11.3); RBC Red Blood Cell Count 4.71 M/uL (4.33-5.43)
[2021-03-28 06:37] LABS: BUN Blood Urea Nitrogen 11 mg/dL (7-18); Bicarbonate 33 mmol/L (21-32); Glucose Level 108 mg/dL (74-106); Sodium Level 138 mmol/L (136-145)
[2021-03-28 06:38] LABS: ALT/SGPT 13 U/L (12-78); AST/SGOT 11 U/L (15-37); Albumin 1.9 g/dL (3.4-5.0); Alkaline Phosphatase 116 U/L (45-117); Bilirubin Total 0.2 mg/dL (0.2-1.0); Protein, Total 8.2 g/dL (6.4-8.2)
[2021-03-28] MEDS: GABAPENTIN 300 MG CAP PO SCH ×2 (09:08→13:11)
[2021-03-28] MEDS: MORPHINE *EXTENDED RELEASE* 15 MG TAB PO SCH (09:08)
[2021-03-28] MEDS: METFORMIN HCL 500 MG TAB PO SCH (09:08)
[2021-03-28] MEDS ORDERED: INFLUENZA VACCINE (for 6+ mo) 0.5 ML DOSE IMVAC ONE (11:00)
[2021-03-28 12:39] VITALS: BP 119/51; TEMP 97.3
--- NOTE | 2021-03-28 13:35 | P.DS ---
Admission Date: 03/27/21 Discharge Date: 03/28/21 Primary Care Provider: Zhanna Disposition: ROUTINE DISCHARGE Discharge Condition: FAIR Reason for Admission: syncope - Problems (1) Inguinal mass Current Visit: No Status: Chronic (2) DM type 2 (diabetes mellitus, type 2) Current Visit: No Status: Chronic Qualifiers: Diabetes mellitus alf insulin use: without buttermaker use Diabetes mellitus complication status: without complication Qualified Code(s): E11.9 - Type 2 diabetes mellitus without complications (3) Tachycardia Current Visit: Yes Status: Acute (4) Syncope Current Visit: Yes Status: Acute Qualifiers: Syncope type: vasovagal syncope Qualified Code(s): R55 - Syncope and collapse Brief History of Present Illness: Patient is a patient of mine who 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 He has had this for several years. Recently moved to the area. Has been trying to get treatment. Today he called about a syncopal episode. He has chronic bleeding from the mass on his thigh. The patient was not able to get transportation to the hospital lab department. As he sometime becomes severely anemic due to the cancer the patient was instructed to come to the ER. He was found to be tachycadic with an elevfated wbc. The patient has some trace leukocytes in his urine. Which is not significant for the level of his wbc. Is not anemic. Hospital Course: Patient was admitted for observation. He has no significant decrease in his hb. He had a good decrease in his wbc. Was seen by Dr. Monaco. The patient will be sent home with home health for packing. Discussed the importance of following up for the lymph node biopsy. Vital Signs/Physical Exam: Temp Pulse Resp BP Pulse Ox 97.3 F 76 12 119/51 L 97 03/28/21 12:00 03/28/21 12:00 03/28/21 12:00 03/28/21 12:00 03/28/21 12:00 General: Alert, In no apparent distress HEENT: Atraumatic, PERRLA, EOMI Neck: Supple, JVD not distended Respiratory: Clear to auscultation bilaterally, Normal air movement Cardiovascular: Regular rate/rhythm, Normal S1 S2 Gastrointestinal: Normal bowel sounds, No tenderness Musculoskeletal: No tenderness Integumentary: No rashes Neurological: Normal speech, Normal tone, Normal affect Lymphatics: No axilla or inguinal lymphadenopathy Laboratory Data at Discharge: WBC 17.90 K/uL (4.3-10.9) H D 03/28/21 05:51 Hgb 8.1 g/dL (13.6-17.9) L 03/28/21 05:51 Hct 29.3 % (39.6-49.0) L 03/28/21 05:51 Plt Count 635 K/uL (152-406) H 03/28/21 05:51 PT 14.9 SECONDS (9.5-12.5) H 03/27/21 15:56 INR 1.29 03/27/21 15:56 Sodium 138 mmol/L (136-145) 03/28/21 05:51 Potassium 4.0 mmol/L (3.5-5.1) 03/28/21 05:51 BUN 11 mg/dL (7-18) 03/28/21 05:51 Creatinine 0.84 mg/dL (0.55-1.3) 03/28/21 05:51 Glucose 108 mg/dL (74-106) H 03/28/21 05:51 Magnesium 2.0 mg/dL (1.8-2.4) 03/27/21 15:56 Total Bilirubin 0.2 mg/dL (0.2-1.0) 03/28/21 05:51 AST 11 U/L (15-37) L 03/28/21 05:51 ALT 13 U/L (12-78) 03/28/21 05:51 Alkaline Phosphatase 116 U/L (45-117) 03/28/21 05:51 Home Medications: Ciprofloxacin HCl [Cipro 500 MG Tablet] 500 mg PO BID #14 tab 11/09/20 Gabapentin 300 mg PO TID #90 capsule 11/09/20 Glipizide [Glipizide ER] 5 mg PO DAILY #30 tab.er.24 11/09/20 Hydrocodone 10/APAP 325 [Ocate 10/325*] 2 tab PO Q4H PRN #60 tab 11/09/20 Metformin HCl 500 mg PO BID #60 tablet 11/09/20 Sodium Hypochlorite [Dakin's] 473 ml MC DAILY #1 bottle 11/09/20 metroNIDAZOLE [Flagyl*] 500 mg PO Q8H #21 tablet 11/09/20 Surgicel 1 unit TOP PRN #5 11/10/20 Sulfamethoxazole/Trimethoprim [Bactrim Ds Tablet] 1 each PO BID 7 Days #14 tablet 12/29/20 Nitrofurantoin Monohyd/M-Cryst [Macrobid 100 mg Capsule] 100 mg PO TID 3 Days #9 capsule 03/28/21 New Medications: Nitrofurantoin Monohyd/M-Cryst [Macrobid 100 mg Capsule] 100 mg PO TID 3 Days #9 capsule Diet: ADA Activity: Ad corey Followup: Lito Chao MD [Primary Care Provider] - 2-3 Days Time spent managing pt's care (in minutes): 25
--- NOTE | 2021-03-28 16:22 | EKG ---
Test Date: 2021-03-27 Test Time: 16:28:53 Outdoor Guide: ALP MEASUREMENT RESULTS: Intervals: Rate: 112 [place]: 160 QRSD: 84 QT: 308 QTc: 420 [place]: P: 70 OH: 160 QRS: 65 T: 63 INTERPRETIVE STATEMENTS: Sinus tachycardia Biatrial enlargement Abnormal ECG Compared to ECG 12/26/2020 10:00:00 Atrial abnormality now present Ventricular premature complex(es) no longer present Right-axis deviation no longer present Electronically Signed On 03-28-21 16:21:16 TIMBER SURVEYOR by Jose Rea
[2021-03-29] MEDS ORDERED: SODIUM HYPOCHLORITE 0.25% 473 ML TOP SCH (09:00)
== END 2021-03-28 18:45 | disposition home health service (06) | DRG 312 ==
LOC: ER 15:11 → ERHOLD 20:47 → 4TH 20:51
PROVIDERS: ADMIT Internal Medicine; ATTEND Internal Medicine
DX: R55 Syncope and collapse (principal); C76.3 Malignant neoplasm of pelvis; E86.0 Dehydration; D72.829 Elevated white blood cell count, unspecified; E83.52 Hypercalcemia; R00.0 Tachycardia, unspecified; E11.9 Type 2 diabetes mellitus without complications; J44.9 Chronic obstructive pulmonary disease, unspecified; R58 Hemorrhage, not elsewhere classified; Z79.899 Other long term (current) drug therapy; Z79.84 Long term (current) use of oral hypoglycemic drugs; Z20.822 Contact with and (suspected) exposure to COVID-19
CPT/HCPCS: 36415; 71045; 80048; 80053; 80076; 81003; 81015; 82947; 83605; 83735; 84145; 84484; 85025; 85610; 87040; 87070; 87077; 87086; 87088; 87186; 87205; 93005; 96374; 96375; 99285; J1170; J2405; J7030; J7799; U0003

== ENCOUNTER 2021-04-23 08:23 | Emergency (ER) | payer OTHER ==
--- OUTSIDE RECORDS SUMMARY | 2021-04-23 08:29 | XMS REPORT | Continuity of Care Document ---
:1975 Author Organization [facility] t Address [address] [place] [address] Care Team Providers Name Role Phone AKUA HUDSON Attending Clinician Unavailable Cb Anderson Attending Clinician Unavailable DR PAVEL AMEZCUA Attending Clinician Unavailable Physician, No Primary or Family Admitting Clinician Unavailelissa AMEZCUA DR Admitting Clinician Unavailable Payers Payer Name Policy Type Policy Number Effective Date Expiration Date S our [employer] [id number] 2020 PLUS 00:00:00 Problems This patient has no known problems. Allergies, Adverse Reactions, Alerts Allergy Allergy Status Severity Reaction(s) Onset Inactive Treating Comm ents Source Name Type Date Date Clinician No Known DA Active U [facility]04 Clear Allergie 00:00: Green s [facility] No Known DA Active U N/A [facility]04 Clear Allergie 00:00: Green s [facility] NO KNOWN DA Active U [facility] CONTRAST 4-20 Clear MEDIA 00:00: Green ALLERG [facility] NO KNOWN DA Active U [facility] OTHER 4-20 Clear ALLERGIE 00:00: Green S [facility] No Known DA Active U [facility] 4-20 Clear Allergie 00:00: Green s [facility] No Known DA Active U 2000- [facility] Food 4-20 Clear Allergie 00:00: [facility] Medications This patient has no known medications. Procedures Procedure Date / Time Performed Performing Clinician [facility] aj [id number] 2020-09-04 00:00:00 ISAI [facility] [id number] 2020-08-31 00:00:00 SHEZA [facility] [id number] 2020-08-31 00:00:00 SHEZA [facility] [id number] 2020-08-30 00:00:00 ISAI [facility] Encounters Start End Encounter Admission Attending Care Care Encounter Source Date/Time Date/Time Type Type Clinicians Facility Department ID 2021-02-07 Outpatient [facility] [id number] [place] 12:13:33 [facility] 2020-08-29 Inpatient [facility]M ALETA [id number] [facility] 17:04:00 [id number] [facility] 2020-08-31 2020-08-31 Outpatient Rostata, HCACL LABO [id number] [facility] 08:30:00 08:30:00 Cb [id number] [facility] 2019-07-15 2019-07-15 Emergency E GOLDIE, [facility] [id number] [facility] 12:28:00 13:10:00 [facility] Results Test Description Test Time Test Comments Results Result Comments Source GLUBED 2020-10-12 12:17:00 Test Item Value Reference Range Interpretation Comme nts GLUBED (test code = GLUBED) 215 mg/dL 74-106 H Performed by certified double head machine operator at [facility] [id number] 12:17:00 Test Item Value Reference Range Interpretation Comments GLUBED (test code = 213 mg/dL 74-106 H Performe d by certified GLUBED) double head machine operator at [facility] [id number] 12:16:00 Test Item Value Reference Range Interpretation Comments GLUBED (test code = 156 mg/dL 74-106 H Performe d by certified GLUBED) double head machine operator at [facility] [id number] 12:15:00 Test Item Value Reference Range Interpretation Comments GLUBED (test code = 183 mg/dL 74-106 H Performe d by certified GLUBED) double head machine operator at [facility] [id number] 12:15:00 Test Item Value Reference Range Interpretation Comments GLUBED (test code 190 mg/dL 74-106 H Performed by certified = GLUBED) [facility]~ [id number] 12:14:00 Test Item Value Reference Range Interpretation Comments GLUBED (test code 212 mg/dL 74-106 H Performed by certified = GLUBED) [facility] [id number] 12:14:00 Test Item Value Reference Range Interpretation Comments GLUBED (test code = 263 mg/dL 74-106 H Performe d by certified GLUBED) double head machine operator at [facility] [id number] 16:11:00 Test Item Value Reference Range Interpretation Comments GLUBED (test code = 189 mg/dL 74-106 H Performe d by certified GLUBED) double head machine operator at [facility] [id number] 10:41:00 Test Item Value Reference Range Interpretation Comments GLUBED (test code = 182 mg/dL 74-106 H Performe d by certified GLUBED) double head machine operator at [facility] [id number] 20:48:00 Test Item Value Reference Range Interpretation Comments GLUBED (test code = 198 mg/dL 74-106 H Performe d by certified GLUBED) double head machine operator at [facility] [id number] 16:01:00 Test Item Value Reference Range Interpretation Comments GLUBED (test code = 177 mg/dL 74-106 H Performe d by certified GLUBED) double head machine operator at [facility] [id number] 11:42:00 Test Item Value Reference Range Interpretation Comments GLUBED (test code = 174 mg/dL 74-106 H Performe d by certified GLUBED) double head machine operator at [facility] CBC W/AUTO [id number] 06:22:00 Test Item Value Reference Range Interpretation [...] SCAN NEEDED (test code = MDIFF) DIFFERENTIAL [id number] 06:22:00 Test Item Value Reference Range Interpretation Comments STAIN ACCEPTABILITY (test STAIN ACCEPTABLE code = STN ACCEPTABLE) MORPHOLOGY COMMENT (test NORMAL code = MOC) PLATELET ESTIMATE (test code ADEQUATE = PLTEST) PLATELET MORPHOLOGY (test NORMAL code = PLTMORPH) BASIC METABOLIC [id number] 05:33:00 Test Item Value Reference Range Interpretation [...] >3 months. [Automated mess age] The system [employer] generated this result transmitted ref erence range: >=60. Th e reference range was not used to int erpret this result as normal/abnormal . CREATININE (test code 0.90 mg/dL 0.7-1.3 N = CREAT) BUN/CREATININE RATIO 11.6 10-20 N (test code = BUN/CREA) CALCIUM (test code = 8.5 mg/dL 8.5-10.1 N CA) CBC W/AUTO [id number] 05:01:00 Test Item Value Reference Range Interpretation [...] SCAN NEEDED (test code = MDIFF) DIFFERENTIAL [id number] 05:01:00 Test Item Value Reference Range Interpretation Comments STAIN ACCEPTABILITY (test code = STN ACCEPTABLE) CABOT RINGS (test code = CAB) MORPHOLOGY COMMENT (test code = MOC) PLATELET ESTIMATE (test code = PLTEST) PLATELET MORPHOLOGY (test code = PLTMORPH) CBC W/AUTO [id number] 05:01:00 Test Item Value Reference Range Interpretation [...] SCAN NEEDED (test code = MDIFF) DIFFERENTIAL [id number] 05:01:00 Test Item Value Reference Range Interpretation Comments STAIN ACCEPTABILITY (test code = STN ACCEPTABLE) CABOT RINGS (test code = CAB) MORPHOLOGY COMMENT (test code = MOC) PLATELET ESTIMATE (test code = PLTEST) PLATELET MORPHOLOGY (test code = PLTMORPH) CBC W/AUTO [id number] 05:01:00 Test Item Value Reference Range Interpretation [...] SCAN NEEDED (test code = MDIFF) DIFFERENTIAL [id number] 05:01:00 Test Item Value Reference Range Interpretation Comments STAIN ACCEPTABILITY (test code = STN ACCEPTABLE) MORPHOLOGY COMMENT (test code = MOC) PLATELET ESTIMATE (test code = PLTEST) PLATELET MORPHOLOGY (test code = PLTMORPH) CBC W/AUTO [id number] 05:01:00 Test Item Value Reference Range Interpretation [...] SCAN NEEDED (test code = MDIFF) DIFFERENTIAL [id number] 05:01:00 Test Item Value Reference Range Interpretation Comments STAIN ACCEPTABILITY (test code = STN ACCEPTABLE) CABOT RINGS (test code = CAB) MORPHOLOGY COMMENT (test code = MOC) PLATELET ESTIMATE (test code = PLTEST) PLATELET MORPHOLOGY (test code = PLTMORPH) [id number] 21:00:00 Test Item Value Reference Range Interpretation Comments GLUBED (test code = 211 mg/dL 74-106 H Performe d by certified GLUBED) double head machine operator at [facility] [id number] 16:29:00 Test Item Value Reference Range Interpretation Comments GLUBED (test code = 158 mg/dL 74-106 H Performe d by certified GLUBED) double head machine operator at [facility] [id number] 11:57:00 Test Item Value Reference Range Interpretation Comments GLUBED (test code = 101 mg/dL 74-106 N Performe d by certified GLUBED) double head machine operator at [facility] CBC W/AUTO [id number] 09:46:00 Test Item Value Reference Range Interpretation [...] SCAN NEEDED (test code = MDIFF) DIFFERENTIAL [id number] 09:46:00 Test Item Value Reference Range Interpretation Comments STAIN ACCEPTABILITY (test STAIN ACCEPTABLE code = STN ACCEPTABLE) MORPHOLOGY COMMENT (test NORMAL code = MOC) PLATELET ESTIMATE (test code ADEQUATE = PLTEST) PLATELET MORPHOLOGY (test NORMAL code = PLTMORPH) [id number] 08:20:00 Test Item Value Reference Range Interpretation Comments GLUBED (test code = 257 mg/dL 74-106 H Performe d by certified GLUBED) double head machine operator at [facility] BASIC METABOLIC [id number] 07:03:00 Test Item Value Reference Range Interpretation [...] >3 months. [Automated mess age] The system [employer] generated this result transmitted ref erence range: >=60. Th e reference range was not used to int erpret this result as normal/abnormal . CREATININE (test code 0.90 mg/dL 0.7-1.3 N = CREAT) BUN/CREATININE RATIO 11.7 10-20 N (test code = BUN/CREA) CALCIUM (test code = 8.6 mg/dL 8.5-10.1 N CA) CBC W/AUTO [id number] 05:51:00 Test Item Value Reference Range Interpretation [...] SCAN NEEDED (test code = MDIFF) DIFFERENTIAL [id number] 05:51:00 Test Item Value Reference Range Interpretation Comments STAIN ACCEPTABILITY (test code = STN ACCEPTABLE) CABOT RINGS (test code = CAB) MORPHOLOGY COMMENT (test code = MOC) PLATELET ESTIMATE (test code = PLTEST) PLATELET MORPHOLOGY (test code = PLTMORPH) CBC W/AUTO [id number] 05:51:00 Test Item Value Reference Range Interpretation [...] SCAN NEEDED (test code = MDIFF) DIFFERENTIAL [id number] 05:51:00 Test Item Value Reference Range Interpretation Comments STAIN ACCEPTABILITY (test code = STN ACCEPTABLE) CABOT RINGS (test code = CAB) MORPHOLOGY COMMENT (test code = MOC) PLATELET ESTIMATE (test code = PLTEST) PLATELET MORPHOLOGY (test code = PLTMORPH) CBC W/AUTO [id number] 05:51:00 Test Item Value Reference Range Interpretation [...] SCAN NEEDED (test code = MDIFF) DIFFERENTIAL [id number] 05:51:00 Test Item Value Reference Range Interpretation Comments STAIN ACCEPTABILITY (test code = STN ACCEPTABLE) MORPHOLOGY COMMENT (test code = MOC) PLATELET ESTIMATE (test code = PLTEST) PLATELET MORPHOLOGY (test code = PLTMORPH) CBC W/AUTO [id number] 05:51:00 Test Item Value Reference Range Interpretation [...] SCAN NEEDED (test code = MDIFF) DIFFERENTIAL [id number] 05:51:00 Test Item Value Reference Range Interpretation Comments STAIN ACCEPTABILITY (test code = STN ACCEPTABLE) CABOT RINGS (test code = CAB) MORPHOLOGY COMMENT (test code = MOC) PLATELET ESTIMATE (test code = PLTEST) PLATELET MORPHOLOGY (test code = PLTMORPH) [id number] 16:50:00 Test Item Value Reference Range Interpretation Comments GLUBED (test code 215 mg/dL 74-106 H Performed by certified = GLUBED) [facility]~ [id number] 12:01:00 Test Item Value Reference Range Interpretation Comments GLUBED (test code 187 mg/dL 74-106 H Performed by certified = GLUBED) [facility] head machine [facility]~ [id number] 20:23:00 Test Item Value Reference Range Interpretation Comments GLUBED (test code = 232 mg/dL 74-106 H Performe d by certified GLUBED) double head machine operator at [facility] [id number] 16:36:00 Test Item Value Reference Range Interpretation Comments GLUBED (test code = 180 mg/dL 74-106 H Performe d by certified GLUBED) double head machine operator at [facility] [id number] 12:14:00 Test Item Value Reference Range Interpretation Comments GLUBED (test code = 221 mg/dL 74-106 H Performe d by certified GLUBED) double head machine operator at [facility] [id number] 08:41:00 Test Item Value Reference Range Interpretation Comments GLUBED (test code = 228 mg/dL 74-106 H Performe d by certified GLUBED) double head machine operator at [facility] CBC W/AUTO [id number] 06:22:00 Test Item Value Reference Range Interpretation [...] SCAN NEEDED (test code = MDIFF) DIFFERENTIAL [id number] 06:22:00 Test Item Value Reference Range Interpretation Comments STAIN ACCEPTABILITY (test STAIN ACCEPTABLE code = STN ACCEPTABLE) POLYCHROMASIA (test code = 1+ POLC) PLATELET ESTIMATE (test code ADEQUATE = PLTEST) PLATELET MORPHOLOGY (test NORMAL code = PLTMORPH) BASIC METABOLIC [id number] 05:57:00 Test Item Value Reference Range Interpretation [...] >3 months. [Automated mess age] The system [employer] generated this result transmitted ref erence range: >=60. Th e reference range was not used to int erpret this result as normal/abnormal . CREATININE (test code 0.80 mg/dL 0.7-1.3 N = CREAT) BUN/CREATININE RATIO 11.9 10-20 N (test code = BUN/CREA) CALCIUM (test code = 8.3 mg/dL 8.5-10.1 L CA) CBC W/AUTO [id number] 05:37:00 Test Item Value Reference Range Interpretation [...] SCAN NEEDED (test code = MDIFF) DIFFERENTIAL [id number] 05:37:00 Test Item Value Reference Range Interpretation Comments STAIN ACCEPTABILITY (test code = STN ACCEPTABLE) CABOT RINGS (test code = CAB) MORPHOLOGY COMMENT (test code = MOC) PLATELET ESTIMATE (test code = PLTEST) PLATELET MORPHOLOGY (test code = PLTMORPH) CBC W/AUTO [id number] 05:37:00 Test Item Value Reference Range Interpretation [...] SCAN NEEDED (test code = MDIFF) DIFFERENTIAL [id number] 05:37:00 Test Item Value Reference Range Interpretation Comments STAIN ACCEPTABILITY (test code = STN ACCEPTABLE) CABOT RINGS (test code = CAB) MORPHOLOGY COMMENT (test code = MOC) PLATELET ESTIMATE (test code = PLTEST) PLATELET MORPHOLOGY (test code = PLTMORPH) CBC W/AUTO [id number] 05:37:00 Test Item Value Reference Range Interpretation [...] SCAN NEEDED (test code = MDIFF) DIFFERENTIAL [id number] 05:37:00 Test Item Value Reference Range Interpretation Comments STAIN ACCEPTABILITY (test code = STN ACCEPTABLE) MORPHOLOGY COMMENT (test code = MOC) PLATELET ESTIMATE (test code = PLTEST) PLATELET MORPHOLOGY (test code = PLTMORPH) CBC W/AUTO [id number] 05:37:00 Test Item Value Reference Range Interpretation [...] SCAN NEEDED (test code = MDIFF) DIFFERENTIAL [id number] 05:37:00 Test Item Value Reference Range Interpretation Comments STAIN ACCEPTABILITY (test code = STN ACCEPTABLE) CABOT RINGS (test code = CAB) MORPHOLOGY COMMENT (test code = MOC) PLATELET ESTIMATE (test code = PLTEST) PLATELET MORPHOLOGY (test code = PLTMORPH) [id number] 16:06:00 Test Item Value Reference Range Interpretation Comments GLUBED (test code 237 mg/dL 74-106 H Performed by certified = GLUBED) [facility]~ [id number] 12:35:00 Test Item Value Reference Range Interpretation Comments GLUBED (test code 271 mg/dL 74-106 H Performed by certified = GLUBED) double head machine [facility]~ [id number] 08:08:00 Test Item Value Reference Range Interpretation Comments GLUBED (test code 233 mg/dL 74-106 H Performed by certified = GLUBED) [facility] head machine [facility]~ CBC W/AUTO [id number] 07:56:00 Test Item Value Reference Range Interpretation [...] SCAN NEEDED (test code = MDIFF) DIFFERENTIAL [id number] 07:56:00 Test Item Value Reference Range Interpretation Comments STAIN ACCEPTABILITY (test STAIN ACCEPTABLE code = STN ACCEPTABLE) MORPHOLOGY COMMENT (test NORMAL code = MOC) PLATELET ESTIMATE (test code ADEQUATE = PLTEST) PLATELET MORPHOLOGY (test NORMAL code = PLTMORPH) COMPREHENSIVE METABOLIC [id number] 05:54:00 Test Item Value Reference Range Interpretation [...] >3 months. [Automated mess age] The system [employer] generated this result transmitted ref erence range: [...] ALKP) to change in reagent. CBC W/AUTO [id number] 05:12:00 Test Item Value Reference Range Interpretation [...] SCAN NEEDED (test code = MDIFF) DIFFERENTIAL [id number] 05:12:00 Test Item Value Reference Range Interpretation Comments STAIN ACCEPTABILITY (test code = STN ACCEPTABLE) MORPHOLOGY COMMENT (test code = MOC) PLATELET ESTIMATE (test code = PLTEST) PLATELET MORPHOLOGY (test code = PLTMORPH) CBC W/AUTO [id number] 05:12:00 Test Item Value Reference Range Interpretation [...] SCAN NEEDED (test code = MDIFF) DIFFERENTIAL [id number] 05:12:00 Test Item Value Reference Range Interpretation Comments STAIN ACCEPTABILITY (test code = STN ACCEPTABLE) CABOT RINGS (test code = CAB) MORPHOLOGY COMMENT (test code = MOC) PLATELET ESTIMATE (test code = PLTEST) PLATELET MORPHOLOGY (test code = PLTMORPH) CBC W/AUTO [id number] 05:11:00 Test Item Value Reference Range Interpretation [...] SCAN NEEDED (test code = MDIFF) DIFFERENTIAL [id number] 05:11:00 Test Item Value Reference Range Interpretation Comments STAIN ACCEPTABILITY (test code = STN ACCEPTABLE) CABOT RINGS (test code = CAB) MORPHOLOGY COMMENT (test code = MOC) PLATELET ESTIMATE (test code = PLTEST) PLATELET MORPHOLOGY (test code = PLTMORPH) CBC W/AUTO [id number] 05:11:00 Test Item Value Reference Range Interpretation [...] SCAN NEEDED (test code = MDIFF) DIFFERENTIAL [id number] 05:11:00 Test Item Value Reference Range Interpretation Comments STAIN ACCEPTABILITY (test code = STN ACCEPTABLE) CABOT RINGS (test code = CAB) MORPHOLOGY COMMENT (test code = MOC) PLATELET ESTIMATE (test code = PLTEST) PLATELET MORPHOLOGY (test code = PLTMORPH) [id number] 20:37:00 Test Item Value Reference Range Interpretation Comments GLUBED (test code = 297 mg/dL 74-106 H Performe d by certified GLUBED) double head machine operator at [facility] URINALYSIS [id number] 17:21:00 Test Item Value Reference Range Interpretation [...] (test code = AMORU) Urine Source? Clean [id number] 16:41:00 Test Item Value Reference Range Interpretation Comments GLUBED (test code = 234 mg/dL 74-106 H Performe d by certified GLUBED) double head machine operator at [facility] COMPREHENSIVE METABOLIC [id number] 12:38:00 Test Item Value Reference Range Interpretation [...] >3 months. [Automated mess age] The system [employer] generated this result transmitted ref erence range: [...] range due ALKP) to change in reagent. [id number] 11:38:00 Test Item Value Reference Range Interpretation Comments GLUBED (test code = 237 mg/dL 74-106 H Performe d by certified GLUBED) double head machine operator at [facility] LIPID PROFILE (CORONARY RISK)2020-08-30 09:41:00 Test Item [...] is a direct measurement.=== ====== THYROID STIMULATING [id number] 09:41:00 Test Item Value Reference Range Interpretation Comments THYROID STIMULATING 2.255 uIU/mL 0.36-3.74 N TSH REFE RENCE HORMONE (test code = RANGES: EUTHYROID: TSH) 0.35 - 4.3 mIU/mL HYPO : > 5.5 mIU/mL HYPER : < 0.35 mIU/mL CBC W/AUTO [id number] 09:11:00 Test Item Value Reference Range Interpretation [...] SCAN NEEDED (test code = MDIFF) DIFFERENTIAL [id number] 09:11:00 Test Item Value Reference Range Interpretation Comments STAIN ACCEPTABILITY (test STAIN ACCEPTABLE code = STN ACCEPTABLE) POLYCHROMASIA (test code = 1+ POLC) HYPOCHROMIA (test code = 1+ HYPO) ANISOCYTOSIS (test code = 1+ ANISO) MICROCYTOSIS (test code = 1+ MICR) PLATELET ESTIMATE (test code ADEQUATE = PLTEST) PLATELET MORPHOLOGY (test NORMAL code = PLTMORPH) [id number] 08:40:00 Test Item Value Reference Range Interpretation Comments GLYCOSYLATED HEMOGLOBIN 11.0 % HbA1 SUGG ESTED (HA1C) (test code = DIAGNOSI S: HbA1C GLYHGB) (%) ---- ------ Diab etic >6.4Prediabetes 5.7 - 6.4Normal <5.7 ESTIMATED AVERAGE 269 MG/DL GLUCOSE (test code = EAG) CBC W/AUTO [id number] 08:23:00 Test Item Value Reference Range Interpretation [...] SCAN NEEDED (test code = MDIFF) DIFFERENTIAL [id number] 08:23:00 Test Item Value Reference Range Interpretation Comments STAIN ACCEPTABILITY (test code = STN ACCEPTABLE) CABOT RINGS (test code = CAB) MORPHOLOGY COMMENT (test code = MOC) PLATELET ESTIMATE (test code = PLTEST) PLATELET MORPHOLOGY (test code = PLTMORPH) CBC W/AUTO [id number] 08:23:00 Test Item Value Reference Range Interpretation [...] SCAN NEEDED (test code = MDIFF) DIFFERENTIAL [id number] 08:23:00 Test Item Value Reference Range Interpretation Comments STAIN ACCEPTABILITY (test code = STN ACCEPTABLE) MORPHOLOGY COMMENT (test code = MOC) PLATELET ESTIMATE (test code = PLTEST) PLATELET MORPHOLOGY (test code = PLTMORPH) CBC W/AUTO [id number] 08:22:00 Test Item Value Reference Range Interpretation [...] SCAN NEEDED (test code = MDIFF) DIFFERENTIAL [id number] 08:22:00 Test Item Value Reference Range Interpretation Comments STAIN ACCEPTABILITY (test code = STN ACCEPTABLE) CABOT RINGS (test code = CAB) MORPHOLOGY COMMENT (test code = MOC) PLATELET ESTIMATE (test code = PLTEST) PLATELET MORPHOLOGY (test code = PLTMORPH) CBC W/AUTO [id number] 08:22:00 Test Item Value Reference Range Interpretation [...] SCAN NEEDED (test code = MDIFF) DIFFERENTIAL [id number] 08:22:00 Test Item Value Reference Range Interpretation Comments STAIN ACCEPTABILITY (test code = STN ACCEPTABLE) CABOT RINGS (test code = CAB) MORPHOLOGY COMMENT (test code = MOC) PLATELET ESTIMATE (test code = PLTEST) PLATELET MORPHOLOGY (test code = PLTMORPH) - CT ABD PELVIS [id number] 20:38:00 [facility]Name: RAN EVERETT : 1975 Sex: M Name: RAN EVERETT [facility] : Age/S: 44 / M [address] [facility] Unit #: [id number] Loc: [place] [address] Phys: Ban Arnold NP Acct: [id number] Dis Date: Status: REG ER PHONE #: [phone] Exam Date: 08/29/20202022 FAX #: [phone] 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)Name: RAN EVERETT : 1975 Sex: M FAX: Ban Anrold NP [place]: St: REG Name: RAN EVERETT [facility] : 1975 Age/S: 44/M [address] [facility] Unit #: [id number] Loc: [place] [address] Phys: Ban Arnold NP Acct: [id number] Dis Date: Status: REG ER PHONE #: [phone] Exam Date: 08/29/20201918 FAX #: [phone] Reason: CODE SEPSIS EXAMS: CPT CODE: [id number] XR CHEST 1 V [id number] EXAM: Chest X- ray, 1 view; CLINICAL [...] (2018) PAGE 1 Signed ReportCOVID 19 INHOUSE [id number] 20:02:00 Test Item Value Reference Range Interpretation Comments COVID 19 INHOUSE AG (test code = NEGATIVE NEGATIVE [id number]) BASIC METABOLIC [id number] 19:53:00 Test Item Value Reference Range Interpretation [...] >3 months. [Automated mess age] The system [employer] generated this result transmitted ref erence range: >=60. Th e reference range was not used to int erpret this result as normal/abnormal . CREATININE (test 1.00 mg/dL 0.7-1.3 N code = CREAT) BUN/CREATININE RATIO 11.6 10-20 N (test code = BUN/CREA) CALCIUM (test code = 8.5 mg/dL 8.5-10.1 N CA) HEPATIC FUNCTION [id number] 19:53:00 Test Item Value Reference Range Interpretation [...] range due ALKP) to change in reagent. [id number] 19:53:00 Test Item Value Reference Range Interpretation Comments TROPONIN-I (test code = TROPI) < 0.006 ng/mL 0-0.045 N B-TYPE NATRIURETIC [id number] 19:52:00 Test Item Value Reference Range Interpretation Comments B-TYPE NATRIURETIC PEPTIDE 20.0 pgram/mL 0-100 N (test code = BNP) LACTIC [id number] 19:33:00 Test Item Value Reference Range Interpretation Comments LACTIC ACID (test code = LACT) 1.3 mmol/L 0.4-1.9 N CBC W/AUTO [id number] 19:15:00 Test Item Value Reference Range Interpretation [...] code = 0.00 K/mm3 0.0-0.1 N NRBC#) [place] [id number] 07:04:53 Test Item Value Reference Range Interpretation Comments [place] Level (test code = 0.52 mmol/L 0.60-1.20 L [place] Level) [place] [id number] 06:31:16 Test Item Value Reference Range Interpretation Comments [place] Level (test code = 0.39 mmol/L 0.60-1.20 L [place] Level) RPR [id number] 03:58:40 Test Item Value Reference Range Interpretation [...] = 08/26/2019 N Expiration Dt) Thyroid Stimulating [id number] 02:50:00 Test Item Value Reference Range Interpretation Comments TSH (test code = TSH) 1.590 mIU/mL 0.270-4.200 Lipid [id number] 02:33:22 Test Item Value Reference Range Interpretation Comments Cholesterol Total 197 mg/dL 0-200 RISK OF HE ART (test code = DISEASEPublishe d by Cholesterol Total) [place] [employer] Lashawn lyte Optimal Borderl ine [...] LDL/HDL Ratio=L DL Calc/HDL Chol Comprehensive Metabolic [id number] 18:09:30 Test Item Value Reference Range Interpretation [...] A/G 1.6 ratio N Ratio) Comprehensive Metabolic [id number] 18:09:30 Test Item Value Reference Range Interpretation [...] National Kidney Foundation, http://nkdep.ni h.gov Comprehensive Metabolic [id number] 18:09:30 Test Item Value Reference Range Interpretation [...] Foundation, http://nkdep.ni h.gov Complete Blood Count with [id number] 17:49:02 Test Item Value Reference Range Interpretation [...] code = IPF) 0 % N Automated [id number] 17:49:02 Test Item Value Reference Range Interpretation Comments Neutro Auto (test code = Neutro 60.9 % 36.0-70.0 Auto) Lymph Auto (test code = Lymph Auto) 28.2 % 12.0-44.0 Caldwell Auto (test code = Caldwell Auto) 8.0 % 0.0-11.0 Eos, Auto (test code = Eos, Auto) 1.7 % 0.0-7.0 Basophil Auto (test code = Basophil 0.7 % 0.0-2.0 Auto) Neutro Absolute (test code = Neutro 8.0 x10 1.6-7.4 H Absolute) Lymph Absolute (test code = Lymph 3.71 x10 .50-4.60 Absolute) Caldwell Absolute (test code = Caldwell 1.06 x10 .00-1.20 Absolute) Eos Absolute (test code = Eos 0.23 x10 0.00-0.74 Absolute) Baso Absolute (test code = Baso 0.09 x10 0.00-0.21 Absolute) IG [id number] 17:49:02 Test Item Value Reference Range Interpretation Comments IG (test code = IG) 0.5 % 0.0-5.0 IG Abs (test code = IG Abs) 0 x10 N Comprehensive Metabolic [id number] 13:30:37 Test Item Value Reference Range Interpretation [...] ratio N = A/G Ratio) Comprehensive Metabolic [id number] 13:30:37 Test Item Value Reference Range Interpretation [...] the National Kidney Foundation, http://nkdep.ni h.gov Alcohol [id number] 13:30:37 Test Item Value Reference Range Interpretation Comments Ethanol Level (test <0.00 g/dL 0.00-0.01 Intoxica annita 0.080 g/dL code = Ethanol or more Level) Ethanol Inst (test <0 N code = Ethanol Inst) Comprehensive Metabolic [id number] 13:30:37 Test Item Value Reference Range Interpretation [...] Foundation, http://nkdep.ni h.gov Drugs of Abuse Urine [id number] 13:26:52 Test Item Value Reference Range Interpretation [...] Cannabinoid Screen Ur) Complete Blood Count with [id number] 13:17:47 Test Item Value Reference Range Interpretation [...] code = IPF) 0 % N Automated [id number] 13:17:47 Test Item Value Reference Range Interpretation Comments Neutro Auto (test code = Neutro 67.8 % 36.0-70.0 Auto) Lymph Auto (test code = Lymph Auto) 22.2 % 12.0-44.0 Caldwell Auto (test code = Caldwell Auto) 7.3 % 0.0-11.0 Eos, Auto (test code = Eos, Auto) 1.4 % 0.0-7.0 Basophil Auto (test code = Basophil 0.7 % 0.0-2.0 Auto) Neutro Absolute (test code = Neutro 10.6 x10 1.6-7.4 H Absolute) Lymph Absolute (test code = Lymph 3.48 x10 .50-4.60 Absolute) Caldwell Absolute (test code = Caldwell 1.14 x10 .00-1.20 Absolute) Eos Absolute (test code = Eos 0.22 x10 0.00-0.74 Absolute) Baso Absolute (test code = Baso 0.11 x10 0.00-0.21 Absolute) IG [id number] 13:17:47 Test Item Value Reference Range Interpretation Comments IG (test code = IG) 0.6 % 0.0-5.0 IG Abs (test code = IG Abs) 0 x10 N
[2021-04-23] MEDS ORDERED: NA CHLORIDE 0.9% 1,000 ML ONE (09:26)
[2021-04-23 09:43] LABS: Urine Blood Negative (Negative); Urine Glucose Negative (Negative); Urine Protein Negative (Negative); Urine Specific Gravity 1.015 (1.005-1.030)
[2021-04-23 10:06] LABS: Absolute Lymphocytes (CBC) 3.1 K/uL (0.7-4.9); Hematocrit 27.7 % (39.6-49.0); Lymphocytes % 16.9 % (15.3-44.8); MPV 6.5 fL (7.6-11.3); RBC Red Blood Cell Count 4.59 M/uL (4.33-5.43)
[2021-04-23 10:07] LABS: Protime INR 1.24
[2021-04-23 10:22] LABS: ALT/SGPT 12 U/L (12-78); AST/SGOT 7 U/L (15-37); Albumin 2.1 g/dL (3.4-5.0); Alkaline Phosphatase 102 U/L (45-117); BUN Blood Urea Nitrogen 9 mg/dL (7-18); Bicarbonate 26 mmol/L (21-32); Bilirubin Direct < 0.1 mg/dL (0-0.2); Bilirubin Total 0.3 mg/dL (0.2-1.0); Glucose Level 93 mg/dL (74-106); Magnesium 2.4 mg/dL (1.8-2.4); NT PRO-BNP 638 pg/mL (<125); Potassium 3.4 mmol/L (3.5-5.1); Protein, Total 8.3 g/dL (6.4-8.2); Sodium Level 136 mmol/L (136-145); Troponin (Emerg Dept Use Only) < 0.02 ng/mL (0.0-0.045)
--- NOTE | 2021-04-23 10:55 | RAD REPORT ---
EXAM DESCRIPTION: RAD - Chest Single View - 04/23/2021 10:29 am CLINICAL HISTORY: COUGH COMPARISON: April 21 TECHNIQUE: AP portable chest image was obtained 04/23/2021 10:29 am . FINDINGS: No new mass or consolidation. Interstitial pattern matches the prior examination. Heart si ze and vasculature also similar to prior imaging. No measurable pleural effusion and no pneumothorax. No acute bony abnormality seen. No acute aortic findings suspected. IMPRESSION: No acute cardiopulmonary process. No significant change from comparison study.
[2021-04-23] MEDS ORDERED: MORPHINE 4 MG/ML SYR ONE (11:02)
[2021-04-23] MEDS ORDERED: ONDANSETRON 4 MG/2 ML VIAL ONE (11:02)
[2021-04-23] MEDS ORDERED: FAMOTIDINE 20 MG/2 ML VIAL IV ONE (11:04)
[2021-04-23] MEDS ORDERED: NA CHLORIDE 0.9% 100 ML ONE (11:04)
[2021-04-23] MEDS ORDERED: PIPERACIL/TAZO 3.375 GM VIAL IV ONE (11:05)
--- NOTE | 2021-04-23 11:31 | ER ---
Nurse's Notes [facility] Name: Yassine Guerrero Jr Age: 45 yrs Sex: Male : 1975 Arrival Date: 04/23/2021 Time: 08:31 Bed 2 Private MD: Diagnosis: Other abdominal pain-large fungating mass 20x15 cm;Anemia, unspecified;Cellulitis and acute lymphangitis of other parts of limb;Elevated white blood cell count Presentation: 04/23 08:32 Chief complaint: EMS states: "patient called after fall approximately 1 hour ago and al4 complains of L sided hip pain." patient states he fell (passed out) on carpet trying to go to the bathroom. patient states that he has a history of syncope episodes. Coronavirus screen: Vaccine status: Patient reports being unvaccinated. At this time, the client does not indicate any symptoms associated with coronavirus-19. Ebola Screen: No symptoms or risks identified at this time. Initial Sepsis Screen: Does the patient meet any 2 criteria? No. Patient's initial sepsis screen is negative. Does the patient have a suspected source of infection? No. Patient's initial sepsis screen is negative. Risk Assessment: Do you want to hurt yourself or someone else? Patient reports no desire to harm self or others. Onset of symptoms was April 23, 2021. 08:32 Method Of Arrival: EMS al4 08:32 Acuity: IRINEO 3 al4 Historical: - Allergies: 08:35 No Known Allergies; al4 - PMHx: 08:35 Bipolar disorder; CPVC; HPV; PTSD; Rheumatoid Arthritis; al4 - PSHx: 08:35 Lymphnode removal; al4 - Immunization history:: Client reports having NOT received the Covid vaccine. Flu vaccine is not up to date. - Social history:: Smoking status: Patient reports the use of cigarette tobacco products, "quit 2 days ago". - Family history:: not pertinent. Screenin:37 Abuse screen: Denies threats or abuse. Nutritional screening: No deficits noted. al4 Tuberculosis screening: No symptoms or risk factors identified. Fall Risk Fall in past 12 months (25 points). No IV (0 pts). Ambulatory Aid- None/Bed Rest/Nurse Assist (0 pts). Gait- Weak (10 pts.). Mental Status- Oriented to own ability (0 pts). Total Renteria Fall Scale indicates Low Risk Score (25-44 pts). Fall prevention measures have been instituted. Side Rails Up X 2 Placed close to Nursing Station Frequent Obs/Assesments occuring As available Patient and Family Educated on Fall Prevention Program and strategies. Assessment: 09:19 General: Appears in no apparent distress. uncomfortable, Behavior is calm, cooperative, al4 Reports injury on pubic area, lesions on pubic area. Pain: Complains of pain in left hip Pain currently is 8 out of 10 on a pain scale. Neuro: Level of Consciousness is awake, alert, obeys commands, Oriented to person, place, time, situation, Reports dizziness. Cardiovascular: Heart tones present Capillary refill < 3 seconds Patient's skin is warm and dry. Respiratory: Airway is patent Respiratory effort is even, unlabored, Respiratory pattern is regular, symmetrical, Breath sounds are clear bilaterally. GI: No signs and/or symptoms were reported involving the gastrointestinal system. : Lesions noted. EENT: No signs and/or symptoms were reported regarding the EENT system. Derm: Wound noted groin and suprapubic area. Musculoskeletal: No signs and/or symptoms reported regarding the musculoskeletal system. 10:18 Reassessment: No changes from previously documented assessment. Patient and/or family al4 updated on plan of care and expected duration. Pain level reassessed. Patient is alert, oriented x 3, equal unlabored respirations, skin warm/dry/pink. warm blanket given. questions answered. . 11:40 Reassessment: original type and screen sent. redraw type and screen sent as well. lab al4 has been called by [facility]. Lab has what they need on their end. waiting on the blood for transfusion. 11:50 Reassessment: waiting for Zosyn to finish before administering the vancomycin. al4 11:56 Reassessment: No changes from previously documented assessment. Patient and/or family al4 updated on plan of care and expected duration. Pain level reassessed. Patient is alert, oriented x 3, equal unlabored respirations, skin warm/dry/pink. 12:59 Reassessment: report called to Claudy \\Nam\\ [phone]. al4 13:03 Reassessment: physician notified - have not received blood from blood bank yet. . al4 13:07 Reassessment: called blood bank to check on the status of the blood. blood bank stated al4 they would call immediately when the blood is ready. 13:08 Reassessment: No changes from previously documented assessment. Patient and/or family al4 updated on plan of care and expected duration. Pain level reassessed. Patient is alert, oriented x 3, equal unlabored respirations, skin warm/dry/pink. 14:01 Reassessment: Blood received at 1358. Patient being transferred to MD Cortez, and al4 transferring EMS will not take blood. Blood sent back to blood bank at 1400. 14:11 Reassessment: Pt being transferred to [place]. Report given to EMS. Patient going al4 with a 20G in L FA and a 20G in R FA. Vancomycin and NS running. Vital Signs: 08:32 BP 115 / 80; Pulse 90; Resp 18 S; Temp 98.0; Pulse Ox 99% on R/A; Pain 8/10; al4 09:00 BP 120 / 66; Pulse 102; Resp 18 S; Pulse Ox 100% on R/A; al4 10:00 BP 136 / 72; Pulse 84; Resp 22 S; Pulse Ox 98% on R/A; jg9 11:01 BP 137 / 73; Pulse 95; Resp 16 S; Pulse Ox 100% on R/A; al4 13:12 BP 115 / 56; Pulse 75; Resp 18 S; Pulse Ox 100% on R/A; al4 ED Course: 08:31 Patient arrived in ED. al4 08:35 Triage completed. al4 08:37 Patient has correct armband on for positive identification. Bed in low position. Call al4 light in reach. Side rails up X2. Pulse ox on. NIBP on. Door closed. Lights dimmed. Warm blanket given. Head of bed Elevated. 08:37 Arm band placed on. al4 08:57 Beto Cortez MD is Attending Physician. richardson 09:30 Inserted saline lock: 20 gauge in right forearm, using aseptic technique. ,using al4 aseptic technique. started by Brock, ED staff. 09:49 First set of blood cultures drawn by nd, Urine collected: clean catch specimen, clear. kv1 10:29 XRAY Chest (1 view) In Process Unspecified. EDMS 11:58 Inserted saline lock: 20 gauge in left forearm, using aseptic technique. ,using aseptic al4 technique. started by ED staff. 12:44 Brennan Juarez is Primary Nurse. al4 13:05 Spoke to Kia at [facility]. Advised of 3 hour wait. mb4 13:06 Spoke to Niki with [facility]. Advised 1 hour ETA. mb4 14:13 No provider procedures requiring assistance completed. Patient transferred, IV remains al4 in place. 14:15 Brennan Juarez is Primary Nurse. al4 Administered Medications: 09:31 Drug: NS 0.9% 1000 ml Route: IV; Rate: 125 ml/hr; Site: right forearm; al4 11:24 Drug: Pepcid (famotidine) 20 mg Route: IVP; Site: right forearm; al4 12:22 Follow up: Response: No adverse reaction al4 11:24 Drug: Zosyn (piperacillin-tazobactam) 3.375 grams Route: IVPB; Infused Over: 60 mins; al4 Site: right forearm; 12:22 Follow up: Response: No adverse reaction; IV Status: Completed infusion al4 11:24 Drug: morphine 4 mg Route: IVP; Site: right forearm; al4 12:22 Follow up: Response: No adverse reaction; RASS: Alert and Calm (0) al4 11:24 Drug: Zofran (Ondansetron) 4 mg Route: IVP; Site: right forearm; al4 12:23 Follow up: Response: No adverse reaction al4 12:28 Drug: vancoMYCIN 1 grams Route: IVPB; Infused Over: 2 hrs; Site: right forearm; al4 Outcome: 11:30 ER care complete, transfer ordered by MD. bai 14:13 Transferred by ground EMS to [facility]. al4 14:13 Condition: stable 14:13 Discharge instructions given to patient, Instructed on the need for transfer, Demonstrated understanding of instructions. 14:17 Patient left the ED. al4 Signatures: Dispatcher [employer] EDMS Beto Cortez MD MD cha Baxter, Mackenzie mb4 Ledbetter, Alexis al4 Ilana Adamsong9 Jake Zaldivar Corrections: (The following items were deleted from the chart) 08:41 08:32 Chief complaint: EMS states: "patient called after fall approximately 1 hour ago al4 and complains of L sided hip pain." patient states he fell (passed out) on carpet trying to go to the bathroom. al4 10:25 09:00 Inserted saline lock: 20 gauge in right forearm, using aseptic technique. ,using al4 aseptic technique. started by Brock, ED staff al4 10:27 09:19 : No signs and/or symptoms were reported regarding the genitourinary system. al4al4 11:43 11:40 Reassessment: original type and screen sent. redraw type and screen sent as well. al4 lab has been called, they have what they need. working on getting the blood for transfusion. al4 12:45 11:40 Reassessment: original type and screen sent. redraw type and screen sent as well. al4 lab has been called, they have what they need. working on getting the blood for transfusion. al4 13:03 12:59 Reassessment: report called to Claudy man al4
--- NOTE | 2021-04-23 11:31 | EDPHYS ---
Physician Documentation [facility] Name: Yassine Guerrero Jr Age: 45 yrs Sex: Male : 1975 Arrival Date: 04/23/2021 Time: 08:31 Bed 2 Private MD: ED Physician Beto Cortez HPI: 04/23 11:12 This 45 yrs old Male presents to ER via EMS with complaints of left groin richardson mass, malignancy. 11:12 The patient presents with decreased range of motion, pain, swelling, tenderness. The richardson complaints affect the left upper thigh. Context: The problem was sustained at an unknown site. Onset: The symptoms/episode began/occurred 1 year(s) ago. Modifying factors: The symptoms are alleviated by remaining still, the symptoms are aggravated by movement. Associated signs and symptoms: Pertinent positives: swelling, warmth. Treatment prior to arrival includes: no previous treatment. Severity of symptoms: At their worst the symptoms were moderate, in the emergency department the symptoms are unchanged. The patient has experienced similar episodes in the past, multiple times. Historical: - Allergies: 08:35 No Known Allergies; al4 - PMHx: 08:35 Bipolar disorder; CPVC; HPV; PTSD; Rheumatoid Arthritis; al4 - PSHx: 08:35 Lymphnode removal; al4 - Immunization history:: Client reports having NOT received the Covid vaccine. Flu vaccine is not up to date. - Social history:: Smoking status: Patient reports the use of cigarette tobacco products, "quit 2 days ago". - Family history:: not pertinent. ROS: 11:12 Constitutional: Negative for fever, chills, and weight loss, Eyes: Negative for injury, richardson pain, redness, and discharge, ENT: Negative for injury, pain, and discharge, Neck: Negative for injury, pain, and swelling, Cardiovascular: Negative for chest pain, palpitations, and edema, Respiratory: Negative for shortness of breath, cough, wheezing, and pleuritic chest pain, Abdomen/GI: Negative for abdominal pain, nausea, vomiting, diarrhea, and constipation, Back: Negative for injury and pain, : Negative for injury, bleeding, discharge, and swelling, Neuro: Negative for headache, weakness, numbness, tingling, and seizure, Psych: Negative for depression, anxiety, suicide ideation, homicidal ideation, and hallucinations, Allergy/Immunology: Negative for hives, rash, and allergies, Endocrine: Negative for neck swelling, polydipsia, polyuria, polyphagia, and marked weight changes, Hematologic/Lymphatic: Negative for swollen nodes, abnormal bleeding, and unusual bruising. 11:12 MS/extremity: Positive for decreased range of motion, erythema, pain, swelling, tenderness, of the left upper thigh. Exam: 11:12 Constitutional: This is a well developed, well nourished patient who is awake, alert, richardson and in no acute distress. Head/Face: Normocephalic, atraumatic. Eyes: Pupils equal round and reactive to light, extra-ocular motions intact. Lids and lashes normal. Conjunctiva and sclera are non-icteric and not injected. Cornea within normal limits. Periorbital areas with no swelling, redness, or edema. ENT: Nares patent. No nasal discharge, no septal abnormalities noted. Tympanic membranes are normal and external auditory canals are clear. Oropharynx with no redness, swelling, or masses, exudates, or evidence of obstruction, uvula midline. Mucous membranes moist. Neck: Trachea midline, no thyromegaly or masses palpated, and no cervical lymphadenopathy. Supple, full range of motion without nuchal rigidity, or vertebral point tenderness. No Meningismus. Chest/axilla: Normal chest wall appearance and motion. Nontender with no deformity. No lesions are appreciated. Cardiovascular: Regular rate and rhythm with a normal S1 and S2. No gallops, murmurs, or rubs. Normal PMI, no JVD. No pulse deficits. Respiratory: Lungs have equal breath sounds bilaterally, clear to auscultation and percussion. No rales, rhonchi or wheezes noted. No increased work of breathing, no retractions or nasal flaring. Abdomen/GI: Soft, non-tender, with normal bowel sounds. No distension or tympany. No guarding or rebound. No evidence of tenderness throughout. Back: No spinal tenderness. No costovertebral tenderness. Full range of motion. Male : Normal genitalia with no discharge or lesions. Skin: Warm, dry with normal turgor. Normal color with no rashes, no lesions, and no evidence of cellulitis. Neuro: Awake and alert, GCS 15, oriented to person, place, time, and situation. Cranial nerves II-XII grossly intact. Motor strength 5/5 in all extremities. Sensory grossly intact. Cerebellar exam normal. Normal gait. Psych: Awake, alert, with orientation to person, place and time. Behavior, mood, and affect are within normal limits. 11:12 Musculoskeletal/extremity: Extremities: grossly normal except: noted in the left upper thigh: deformity, erythema, pain, swelling, tenderness. Vital Signs: 08:32 BP 115 / 80; Pulse 90; Resp 18 S; Temp 98.0; Pulse Ox 99% on R/A; Pain 8/10; al4 09:00 BP 120 / 66; Pulse 102; Resp 18 S; Pulse Ox 100% on R/A; al4 10:00 BP 136 / 72; Pulse 84; Resp 22 S; Pulse Ox 98% on R/A; jg9 11:01 BP 137 / 73; Pulse 95; Resp 16 S; Pulse Ox 100% on R/A; al4 13:12 BP 115 / 56; Pulse 75; Resp 18 S; Pulse Ox 100% on R/A; al4 MDM: 08:57 Patient medically screened. richardson 11:12 Differential diagnosis: dislocation. Data reviewed: lab test result(s), EKG. Data richardson interpreted: front desk monitor: rate is 84 beats/min, rhythm is regular, Pulse oximetry: on room air is 98 %. Test interpretation: by ED physician or midlevel provider: ECG, plain radiologic studies. Counseling: I had a detailed discussion with the patient and/or guardian regarding: the historical points, exam findings, and any diagnostic results supporting the discharge/admit diagnosis, lab results, radiology results, the need to transfer to another facility. 04/23 08:58 Order name: Basic Metabolic Panel; Complete Time: 11:47 [facility] 04/23 08:58 Order name: CBC with Diff; Complete Time: 11:47 [facility] 04/23 08:58 Order name: LFT's; Complete Time: 11:47 [facility] 04/23 08:58 Order name: Magnesium; Complete Time: 11:47 [facility] 04/23 08:58 Order name: NT PRO-BNP; Complete Time: 11:47 [facility] 04/23 08:58 Order name: PT-INR; Complete Time: 11:47 [facility] 04/23 08:58 Order name: Troponin (emerg Dept Use Only); Complete Time: 11:47 [facility] 04/23 09:36 Order name: Type And Screen [facility] 04/23 09:36 Order name: Type and Screen [facility] 04/23 09:42 Order name: Urine Dipstick-Ancillary; Complete Time: 11:47 EDMS 04/23 10:55 Order name: SARS-COV-2 RT PCR (Document "Date of Onset" if Symptomatic) [facility] 04/23 08:58 Order name: XRAY Chest (1 view); Complete Time: 11:47 [facility] 04/23 08:58 Order name: EKG; Complete Time: 08:58 [facility] 04/23 08:58 Order name: Cardiac monitoring; Complete Time: 10:12 [facility] 04/23 08:58 Order name: EKG - Nurse/Tech; Complete Time: 10:27 [facility] 04/23 08:58 Order name: IV Saline Lock; Complete Time: 09:32 [facility] 04/23 08:58 Order name: Labs collected and sent; Complete Time: 09:32 [facility] 04/23 08:58 Order name: O2 Per Protocol; Complete Time: 09:32 [facility] 04/23 08:58 Order name: O2 Sat Monitoring; Complete Time: 09:32 [facility] 04/23 13:24 Order name: Packed RBC Leukored EDMS Administered Medications: 09:31 Drug: NS 0.9% 1000 ml Route: IV; Rate: 125 ml/hr; Site: right forearm; al4 11:24 Drug: Pepcid (famotidine) 20 mg Route: IVP; Site: right forearm; al4 12:22 Follow up: Response: No adverse reaction al4 11:24 Drug: Zosyn (piperacillin-tazobactam) 3.375 grams Route: IVPB; Infused Over: 60 mins; al4 Site: right forearm; 12:22 Follow up: Response: No adverse reaction; IV Status: Completed infusion al4 11:24 Drug: morphine 4 mg Route: IVP; Site: right forearm; al4 12:22 Follow up: Response: No adverse reaction; RASS: Alert and Calm (0) al4 11:24 Drug: Zofran (Ondansetron) 4 mg Route: IVP; Site: right forearm; al4 12:23 Follow up: Response: No adverse reaction al4 12:28 Drug: vancoMYCIN 1 grams Route: IVPB; Infused Over: 2 hrs; Site: right forearm; al4 Disposition Summary: 04/23/21 11:30 Transfer Ordered Transfer Location: Other Acute Care Facility [facility] Reason: Higher level of care richardson Condition: Fair richardson Problem: new richardson Symptoms: have improved richardson Accepting Physician: to [facility](04/23/21 14:17) al4 Diagnosis - Other abdominal pain - large fungating mass 20x15 cm(04/23/21 11:39) richardson - Anemia, unspecified richardson - Cellulitis and acute lymphangitis of other parts of limb richardson - Elevated white blood cell count richardson Forms: - Medication Reconciliation Form richardson - SBAR form richardson Signatures: Dispatcher [employer] EDMS Beto Cortez MD MD cha Ledbetter, Alexis al4 Corrections: (The following items were deleted from the chart) 11:39 11:30 to [facility] 11:39 11:30 Other abdominal pain [facility] 13:18 10:55 PACKED RBC LEUKORED -1+BB.LAB.BRZ ordered. EDMS EDMS 13:18 10:56 ABO/RH typing ordered. EDMS EDMS 13:18 10:56 Antibody Screen ordered. EDMS EDMS 14:17 11:39 to [facility] richardson al4
[2021-04-23] MEDS ORDERED: NA CHLORIDE 0.9% 250 ML ONE ×2 (12:22→13:47)
[2021-04-23] MEDS ORDERED: VANCOMYCIN 1 GM/VIAL ONE (12:22)
[2021-04-23 14:26] VITALS: TEMP 98
[2021-04-23 14:31] VITALS: O2SAT 100
[2021-04-23 14:33] VITALS: BP 115/56
== END 2021-04-23 14:17 ==
LOC: ER 08:23
DX: D64.9 Anemia, unspecified (principal); R19.00 Intra-abdominal and pelvic swelling, mass and lump, unspecified site; L03.116 Cellulitis of left lower limb; L03.126 Acute lymphangitis of left lower limb; D72.829 Elevated white blood cell count, unspecified; Z20.822 Contact with and (suspected) exposure to COVID-19
CPT/HCPCS: 96365; 93005 ×2; 85025; 80048; 36415; 86900; 83735; 86850; 85610; 86901; 80076; 81003; 84484; 83880; 71045; 96375; 99285; U0003; J2543; J3370; P9016; J7050 ×2; J7030; J2405

== ENCOUNTER 2021-05-10 13:29 | Inpatient (IN) | payer OTHER ==
--- OUTSIDE RECORDS SUMMARY | 2021-05-10 13:34 | XMS REPORT | Clinical Summary ---
:1975 Author Organization [facility] MD [facility] Address [address] [place] [address] Care Team Providers Name Role Phone Unavailable Primary Care Provider Unavailable Allergies No known active allergies Medications Medication Sig Dispensed Refills Start End Date Status Date metFORMIN Take 1 tablet 0 Active (GLUCOPHAGE) 500 by mouth twice 1 mg tablet daily. morphine (MS Take 1 tablet 90 tablet 0 Act yanira CONTIN) 60 mg 12 (60 mg) by 2 hr mouth every 8 tabletIndications: (eight) hours. Unknown primary site cancer, Cellulitis, Groin mass <Unspecified side; Unspecified site; Intra-abdominal and pelvic swelling, mass and lump> morphine (MSIR) 15 Take 1 and 60 tablet 0 Active mg IR one-half 2 tabletIndications: tablets (22.5 Unknown primary mg) by mouth site cancer, every 4 (four) Cellulitis, Groin hours as needed mass <Unspecified for pain. side; Unspecified site; Intra-abdominal and pelvic swelling, mass and lump> DULoxetine Take 1 capsule 30 capsule 0 Act yanira (CYMBALTA) 30 mg (30 mg) by 2 capsuleIndications mouth daily. : Unknown primary site cancer, Cellulitis, Groin mass <Unspecified side; Unspecified site; Intra-abdominal and pelvic swelling, mass and lump> haloperidol Take 1 tablet 30 tablet 0 Acti ve (HALDOL) 1 mg (1 mg) by mouth 2 tabletIndications: every 6 (six) Unknown primary hours as needed site cancer, (anxiety, Cellulitis, Groin sleep). mass <Unspecified side; Unspecified site; Intra-abdominal and pelvic swelling, mass and lump> melatonin 10 mg Take 1 tablet 0 Active tabletIndications: (10 mg) by 2 Unknown primary mouth at site cancer, bedtime. Cellulitis, Groin mass <Unspecified side; Unspecified site; Intra-abdominal and pelvic swelling, mass and lump> polyethylene Fill powder up 510 g 0 Ac tive glycol (GLYCOLAX) to line inside 2 17 gram/dose cap marked 17g. powderIndications: Stir and Unknown primary dissolve in 4 site cancer, to 8 ounces of Cellulitis, Groin any beverage, mass <Unspecified thenk drink my side; Unspecified mouth once site; daily for Intra-abdominal constipation. and pelvic swelling, mass and lump> senna (SENOKOT) Take 2 tablets 120 tablet 0 Active 8.6 mg by mouth twice 2 tabletIndications: daily. Unknown primary site cancer, Cellulitis, Groin mass <Unspecified side; Unspecified site; Intra-abdominal and pelvic swelling, mass and lump> naloxone (Narcan) Use 1 dose into 1 Box 0 Active 4 mg/actuation one nostril as 2 nasal needed for sprayIndications: opioid Unknown primary overdose. Do site cancer, not prime or Cellulitis, Groin test the mass <Unspecified inhaler prior side; Unspecified to site; adminstration. Intra-abdominal Give another and pelvic dose into the swelling, mass and other nostril lump> after 2 to 3 minutes if the patient does not respond or responds and then relapses into respiratory depression. ergocalciferol Take 1 capsule 8 capsule 0 06/22/19 Active (DRISDOL) 50,000 (50,000 Units) 2 22 units by mouth once a capsuleIndications week for 8 : Unknown primary doses. site cancer, Anemia due to chronic blood loss, Cellulitis, Groin mass <Unspecified side; Unspecified site; Intra-abdominal and pelvic swelling, mass and lump>, Gastritis, Single subsegmental pulmonary embolism without acute cor pulmonale, Hypercalcemia, History of diabetes mellitus type 2, Obstructive sleep apnea nystatin Apply topically 30 g 0 Acti ve (MYCOSTATIN) to affected 2 100,000 units/g area(s) 3 powderIndications: (three) times a Unknown primary day. site cancer, Anemia due to chronic blood loss, Cellulitis, Groin mass <Unspecified side; Unspecified site; Intra-abdominal and pelvic swelling, mass and lump>, Gastritis, Single subsegmental pulmonary embolism without acute cor pulmonale, Hypercalcemia, History of diabetes mellitus type 2, Obstructive sleep apnea pantoprazole Take 1 tablet 30 tablet 0 05/30/19 Act yanira (PROTONIX) 40 mg (40 mg) by 2 22 EC mouth every tabletIndications: morning before Unknown primary breakfast for site cancer, 30 days. Anemia due to chronic blood loss, Cellulitis, Groin mass <Unspecified side; Unspecified site; Intra-abdominal and pelvic swelling, mass and lump>, Gastritis, Single subsegmental pulmonary embolism without acute cor pulmonale, Hypercalcemia, History of diabetes mellitus type 2, Obstructive sleep apnea enoxaparin Inject 0.86 mL 30 Syringe 5 05/16/19 Act yanira (LOVENOX) 150 (130 mg) under 2 22 mg/mL prefilled the skin every syringeIndications 12 (twelve) : Unknown primary hours for 31 site cancer, doses. Anemia due to chronic blood loss, Cellulitis, Groin mass <Unspecified side; Unspecified site; Intra-abdominal and pelvic swelling, mass and lump>, Gastritis, Single subsegmental pulmonary embolism without acute cor pulmonale, Hypercalcemia, History of diabetes mellitus type 2, Obstructive sleep apnea HYDROcodone-acetam Take 1 tablet 0 0 Discontinued inophen (NORCO) by mouth every 22 (Stop Taking at 7.5 mg-325 mg per 6 (six) hours Discharge) tablet as needed for moderate pain. morphine (MS Take 1 tablet 0 04/29/19 Dis continued CONTIN) 60 mg 12 by mouth twice 05 19 (Stop Taking at hr tablet daily. Discharge) ciprofloxacin HCl Take 1 tablet 18 tablet 0 05/08/19 (CIPRO) 750 mg (750 mg) by 2 22 tabletIndications: mouth every 12 Unknown primary (twelve) hours site cancer, for 9 days. Anemia due to chronic blood loss, Cellulitis, Groin mass <Unspecified side; Unspecified site; Intra-abdominal and pelvic swelling, mass and lump>, Gastritis, Single subsegmental pulmonary embolism without acute cor pulmonale, Hypercalcemia, History of diabetes mellitus type 2, Obstructive sleep apnea Active Problems Problem Noted Date Personal history of colonic polyp 05/03/2021 Overview: Added automatically from request for katherin dahl [id number] Gastritis 04/26/2021 Vitamin D deficiency 04/26/2021 Single subsegmental pulmonary embolism without acute c or pulmonale 04/25/2021 Obstructive sleep apnea 04/24/2021 History of diabetes mellitus type 2 04/24/2021 Anemia due to chronic blood loss 04/24/2021 Osteoarthritis 04/24/2021 Hypercalcemia 04/24/2021 Iron deficiency anemia 04/24/2021 Groin mass 04/23/2021 Cellulitis 04/23/2021 Encounters Date Type Specialty Care Team Description 05/09/2021 Orders Only Radiation Viviana Gann, Oncology PA 05/03/2021 Prep for Surgery Gastroenterology Bharati Lim NP Pe rsonal history of , Hepatology & colonic polyp (Primary Nutrition Dx) 05/03/2021 Orders Only Gastroenterology Bharati Lim NP Person al history of , Hepatology & colonic polyp (Primary Nutrition Dx) 04/30/2021 Orders Only Melanoma Surgery Anna Pillai Groin m ass <Left side; S, PA Lower quadrant; Abdominal swell ing, mass or lump> ( Primary Dx) 04/28/2021 Orders Only Melanoma Surgery Debra Brwonily Groin mass <Left side; MD Juan Lower quadrant; Abdominal swell ing, mass or lump> ( Primary Dx) 04/26/2021 Anesthesia Event Endoscopy Emely Red MD Stapleton, Clarissa, CRNA 04/26/2021 Surgery Endoscopy Maria E Valdez MD GASTROINTESTINA L ENDOSCOPY 04/26/2021 Lab Requisition Roderick Merrill MD Witson, Anne S., MD 04/25/2021 Prep for Surgery Gastroenterology Tanisha Stafford APN An emia due to chronic , Hepatology & blood loss (P rimary Nutrition Dx) 04/25/2021 Prep for Surgery Gastroenterology Ximena Farooq iron , Hepatology & MD Tuyet deficiency an emia Nutrition secondary to bl ood loss (Primary D x) 04/23/2021 Hospital Encounter Melanoma Sarcoma Jayne Taylor (Primary Dx); - MD Vee Unknown primary site cancer; 04/29/2021 Juanita Shaw MD Anemia due to chronic blood loss; Dat Nesbitt MD Groin mass <U nspecified side; Unspecified site; Intra- abdominal and pelvic swelling, mass and lump>; Gastritis; Single subsegme ntal pulmonary embolism without acute cor pulmonale; Hypercalcemia; History of diab etes mellitus type 2; Obstructive sle ep apnea 04/23/2021 Travel after 05/10/2020 Surgical History Surgery Date Site/Laterality Comments LYMPH NODE BIOPSY MI ESOPHAGOGASTRODUODENOSCOPY 04/26/2021 Esophagus/N/A Pr ocedure: DIAGNOSTIC TRANSORAL DIAGNOSTIC UPPER GASTR OINTESTINAL ENDOSCOPY; Surg cierra: Maria E Valdez MD; Location: [facility] ENDOSCOPY; Serv ice: GASTROENTEROLOGY MI COLONOSCOPY FLX DX W/COLLJ SPEC 04/26/2021 N/A Procedure: DIAGNOSTIC WHEN PFRMD FLEXIBLE COLONOS COPY PROXIMAL TO SPLE RADHA FLEXURE; Surgeo n: Maria E Valdez MD; Location: [facility] ENDOSCOPY; Serv ice: GASTROENTEROLOGY Medical History Medical History Date Comments Diabetes mellitus Chronic obstructive pulmonary disease Ventricular premature beats Family History Medical History Relation Name Comments Alcohol abuse Father MVA Completed Suicide Mother Relation Name Status Comments Brother 1 Alive Brother 2 Alive Brother 3 Alive Daughter 1 Alive Daughter 2 Alive Daughter 3 Alive Father Mother Sister 1 Alive Sister 2 Alive Son Alive Social History Tobacco Use Types Packs/Day Years Used Date Former Smoker Cigarettes 3 1986 - 2020 Smokeless Tobacco: Never Used Alcohol Use Standard Drinks/Week Comments Not Currently 0 (1 standard drink = 0.6 oz pure alcoho l) Sex Assigned at Date Recorded Not on file Job Start Date Occupation Industry Not on file Not on file Not on file COVID-19 Exposure Response Date Recorded In the last month, have you been in contact with No / Unsure 04/23/2021 3:11 PM RN OBGYN someone who was confirmed or suspected to have Coronavirus / COVID-19? Obstetrics History Last Filed Vital Signs Vital Sign Reading Time Taken Comments Blood Pressure 135/77 04/29/2021 3:39 PM RN OBGYN Pulse 82 04/29/2021 3:39 PM RN OBGYN Temperature 36.8 C (98.2 F) 04/29/2021 3:39 PM RN OBGYN Respiratory Rate 18 04/29/2021 3:39 PM RN OBGYN Oxygen Saturation 95% 04/29/2021 3:39 PM RN OBGYN Inhaled Oxygen Concentration - - Weight 131.1 kg (289 lb 0.4 oz) 04/29/2021 5:52 AM RN OBGYN Height 173 cm (5' 8.11") 04/23/2021 6:02 PM RN OBGYN Body Mass Index 43.8 04/23/2021 6:02 PM RN OBGYN Plan of Treatment Date Type Specialty Care Team Description 04/03/2022 Telemedicine Gastroenterology, Maria E Valdez Hepatology & SMD Anisha Nutrition [address] [place], [place] [address] (Wo rk) 05/02/2022 Clinical Support Infectious Diseases 05/03/2022 Hospital Encounter Endoscopy Maria E Valdez MD [address], [place] [address] (Wo rk) 05/03/2022 Surgery Endoscopy Maria E Valdez MD FLEXIBLE [address] [facility] COLONOSCOPY [place], [place] [address] PROXIMAL TO [phone] (Wo rk) SPLENIC FLEXURE Name Priority Associated Diagnoses Date/Time DIAGNOSTIC FLEXIBLE Personal history of 05/03/19 23 8:20 AM RN OBGYN COLONOSCOPY PROXIMAL TO colonic polyp SPLENIC FLEXURE Health Maintenance Due Date Last Done Comments COVID-19 Vaccination (1) 1981 Procedures Procedure Name Priority Date/Time Associated Comments Diagnosis CALCIUM LEVEL TOTAL AM 04/29/2021 6:48 Resu lts for this AM RN OBGYN procedure are i n the results section. .GLOMERULAR FILTRATION AM 04/29/2021 6:48 R esults for this RATE AM RN OBGYN procedure are i n the results section. SERUM CREATININE AM 04/29/2021 6:48 Results for this AM RN OBGYN procedure are i n the results section. ELECTROLYTE PANEL AM 04/29/2021 6:48 Result s for this AM RN OBGYN procedure are i n the results section. BLOOD UREA NITROGEN AM 04/29/2021 6:48 Resu lts for this AM RN OBGYN procedure are i n the results section. GLUCOSE LEVEL AM 04/29/2021 6:48 Results fo r this AM RN OBGYN procedure are i n the results section. MANUAL DIFFERENTIAL AM 04/29/2021 6:48 Resu lts for this AM RN OBGYN procedure are i n the results section. Results CBC AM 04/29/2021 6:48 Results for this AM RN OBGYN procedure are i n the results section. PHOSPHORUS LEVEL AM 04/29/2021 6:48 Results for this AM RN OBGYN procedure are i n the results section. MAGNESIUM LEVEL AM 04/29/2021 6:48 Results for this AM RN OBGYN procedure are i n the results section. BASIC METABOLIC PANEL, AM 04/29/2021 6:48 CALCIUM TOTAL AM RN OBGYN COMPLETE BLOOD COUNT W/ AM 04/29/2021 6:48 DIFFERENTIAL AM RN OBGYN MANUAL DIFFERENTIAL AM 04/28/2021 2:36 Resu lts for this AM RN OBGYN procedure are i n the results section. Results CBC AM 04/28/2021 2:36 Results for this AM RN OBGYN procedure are i n the results section. COMPLETE BLOOD COUNT W/ AM 04/28/2021 2:36 DIFFERENTIAL AM RN OBGYN CALCIUM LEVEL TOTAL AM 04/28/2021 2:30 Resu lts for this AM RN OBGYN procedure are i n the results section. .GLOMERULAR FILTRATION AM 04/28/2021 2:30 R esults for this RATE AM RN OBGYN procedure are i n the results section. SERUM CREATININE AM 04/28/2021 2:30 Results for this AM RN OBGYN procedure are i n the results section. ELECTROLYTE PANEL AM 04/28/2021 2:30 Result s for this AM RN OBGYN procedure are i n the results section. BLOOD UREA NITROGEN AM 04/28/2021 2:30 Resu lts for this AM RN OBGYN procedure are i n the results section. GLUCOSE LEVEL AM 04/28/2021 2:30 Results fo r this AM RN OBGYN procedure are i n the results section. PHOSPHORUS LEVEL AM 04/28/2021 2:30 Results for this AM RN OBGYN procedure are i n the results section. MAGNESIUM LEVEL AM 04/28/2021 2:30 Results for this AM RN OBGYN procedure are i n the results section. BASIC METABOLIC PANEL, AM 04/28/2021 2:30 CALCIUM TOTAL AM RN OBGYN US LEG VENOUS DOPPLER Routine 04/27/2021 8:47 Re sults for this BILATERAL AM RN OBGYN procedure are i n the results section. CALCIUM LEVEL TOTAL AM 04/27/2021 5:25 Resu lts for this AM RN OBGYN procedure are i n the results section. .GLOMERULAR FILTRATION AM 04/27/2021 5:25 R esults for this RATE AM RN OBGYN procedure are i n the results section. SERUM CREATININE AM 04/27/2021 5:25 Results for this AM RN OBGYN procedure are i n the results section. ELECTROLYTE PANEL AM 04/27/2021 5:25 Result s for this AM RN OBGYN procedure are i n the results section. BLOOD UREA NITROGEN AM 04/27/2021 5:25 Resu lts for this AM RN OBGYN procedure are i n the results section. GLUCOSE LEVEL AM 04/27/2021 5:25 Results fo r this AM RN OBGYN procedure are i n the results section. MANUAL DIFFERENTIAL AM 04/27/2021 5:25 Resu lts for this AM RN OBGYN procedure are i n the results section. Results CBC AM 04/27/2021 5:25 Results for this AM RN OBGYN procedure are i n the results section. PHOSPHORUS LEVEL AM 04/27/2021 5:25 Results for this AM RN OBGYN procedure are i n the results section. MAGNESIUM LEVEL AM 04/27/2021 5:25 Results for this AM RN OBGYN procedure are i n the results section. BASIC METABOLIC PANEL, AM 04/27/2021 5:25 CALCIUM TOTAL AM RN OBGYN COMPLETE BLOOD COUNT W/ AM 04/27/2021 5:25 DIFFERENTIAL AM RN OBGYN MRI PELVIS W WO CONTRAST Routine 04/26/2021 7:50 Results for this PM RN OBGYN procedure are i n the results section. POC GLUCOSE SCREEN Routine 04/26/2021 3:20 Resul ts for this PM RN OBGYN procedure are i n the results section. POC GLUCOSE SCREEN Routine 04/26/2021 11:36 Resul ts for this AM RN OBGYN procedure are i n the results section. PATHOLOGY BIOPSY Routine 04/26/2021 11:30 Anemia due to Result s for this INTERPRETATION AM RN OBGYN chronic blood loss procedu re are in the results section. DIAGNOSTIC FLEXIBLE 04/26/2021 10:36 Anemia due to COLONOSCOPY PROXIMAL TO AM RN OBGYN chronic blood los s SPLENIC FLEXURE DIAGNOSTIC UPPER 04/26/2021 10:36 Anemia due to GASTROINTESTINAL AM RN OBGYN chronic blood loss ENDOSCOPY POC GLUCOSE SCREEN Routine 04/26/2021 10:36 Resul ts for this AM RN OBGYN procedure are i n the results section. POC GLUCOSE SCREEN Routine 04/26/2021 8:14 Resul ts for this AM RN OBGYN procedure are i n the results section. THYROID STIMULATING AM 04/26/2021 3:20 Resu lts for this HORMONE AM RN OBGYN procedure are i n the results section. CALCIUM LEVEL TOTAL AM 04/26/2021 3:20 Resu lts for this AM RN OBGYN procedure are i n the results section. .GLOMERULAR FILTRATION AM 04/26/2021 3:20 R esults for this RATE AM RN OBGYN procedure are i n the results section. SERUM CREATININE AM 04/26/2021 3:20 Results for this AM RN OBGYN procedure are i n the results section. ELECTROLYTE PANEL AM 04/26/2021 3:20 Result s for this AM RN OBGYN procedure are i n the results section. BLOOD UREA NITROGEN AM 04/26/2021 3:20 Resu lts for this AM RN OBGYN procedure are i n the results section. GLUCOSE LEVEL AM 04/26/2021 3:20 Results fo r this AM RN OBGYN procedure are i n the results section. MANUAL DIFFERENTIAL AM 04/26/2021 3:20 Resu lts for this AM RN OBGYN procedure are i n the results section. Results CBC AM 04/26/2021 3:20 Results for this AM RN OBGYN procedure are i n the results section. PHOSPHORUS LEVEL AM 04/26/2021 3:20 Results for this AM RN OBGYN procedure are i n the results section. MAGNESIUM LEVEL AM 04/26/2021 3:20 Results for this AM RN OBGYN procedure are i n the results section. BASIC METABOLIC PANEL, AM 04/26/2021 3:20 CALCIUM TOTAL AM RN OBGYN COMPLETE BLOOD COUNT W/ AM 04/26/2021 3:20 DIFFERENTIAL AM RN OBGYN POC GLUCOSE SCREEN Routine 04/25/2021 11:03 Resul ts for this PM RN OBGYN procedure are i n the results section. POC GLUCOSE SCREEN Routine 04/25/2021 5:32 Resul ts for this PM RN OBGYN procedure are i n the results section. POC GLUCOSE SCREEN Routine 04/25/2021 2:59 Resul ts for this PM RN OBGYN procedure are i n the results section. CT CHEST PULMONARY Routine 04/25/2021 11:38 Resul ts for this EMBOLISM W CONTRAST AM RN OBGYN procedur e are in the results section. POC GLUCOSE SCREEN Routine 04/25/2021 10:19 Resul ts for this AM RN OBGYN procedure are i n the results section. CALCIUM LEVEL TOTAL AM 04/25/2021 3:19 Resu lts for this AM RN OBGYN procedure are i n the results section. .GLOMERULAR FILTRATION AM 04/25/2021 3:19 R esults for this RATE AM RN OBGYN procedure are i n the results section. SERUM CREATININE AM 04/25/2021 3:19 Results for this AM RN OBGYN procedure are i n the results section. ELECTROLYTE PANEL AM 04/25/2021 3:19 Result s for this AM RN OBGYN procedure are i n the results section. BLOOD UREA NITROGEN AM 04/25/2021 3:19 Resu lts for this AM RN OBGYN procedure are i n the results section. GLUCOSE LEVEL AM 04/25/2021 3:19 Results fo r this AM RN OBGYN procedure are i n the results section. MANUAL DIFFERENTIAL AM 04/25/2021 3:19 Resu lts for this AM RN OBGYN procedure are i n the results section. Results CBC AM 04/25/2021 3:19 Results for this AM RN OBGYN procedure are i n the results section. PHOSPHORUS LEVEL AM 04/25/2021 3:19 Results for this AM RN OBGYN procedure are i n the results section. MAGNESIUM LEVEL AM 04/25/2021 3:19 Results for this AM RN OBGYN procedure are i n the results section. BASIC METABOLIC PANEL, AM 04/25/2021 3:19 CALCIUM TOTAL AM RN OBGYN COMPLETE BLOOD COUNT W/ AM 04/25/2021 3:19 DIFFERENTIAL AM RN OBGYN POC GLUCOSE SCREEN Routine 04/24/2021 11:28 Resul ts for this PM RN OBGYN procedure are i n the results section. TRANSFUSE RED BLOOD Routine 04/24/2021 10:19 CELLS PM RN OBGYN POC GLUCOSE SCREEN Routine 04/24/2021 8:32 Resul ts for this PM RN OBGYN procedure are i n the results section. TRANSFUSE RED BLOOD Routine 04/24/2021 3:22 CELLS PM RN OBGYN TMP HCVAB INTERP Routine 04/24/2021 12:40 Results for this PM RN OBGYN procedure are i n the results section. TMP HIV 1/2 AG&AB PATH Routine 04/24/2021 12:40 R esults for this INTERP PM RN OBGYN procedure are i n the results section. HEPATITIS C VIRUS Routine 04/24/2021 12:40 Result s for this ANTIBODY PM RN OBGYN procedure are i n the results section. HIV-1/2 ANTIGEN AND Routine 04/24/2021 12:40 Resu lts for this ANTIBODIES, FOURTH PM RN OBGYN procedure are in GENERATION the results section. VITAMIN D 25 HYDROXY Routine 04/24/2021 12:40 Res ults for this LEVEL PM RN OBGYN procedure are i n the results section. PTH INTACT Routine 04/24/2021 12:40 Results for this PM RN OBGYN procedure are i n the results section. CALCIUM IONIZED, VENOUS Routine 04/24/2021 12:40 Results for this PM RN OBGYN procedure are i n the results section. POC GLUCOSE SCREEN Routine 04/24/2021 12:19 Resul ts for this PM RN OBGYN procedure are i n the results section. PRBC PRODUCT READY FOR Routine 04/24/2021 11:11 R esults for this ICE CREAM TRUCK DRIVER AM RN OBGYN procedure are i n the results section. PREPARE RBC Routine 04/24/2021 11:11 Results for this AM RN OBGYN procedure are i n the results section. POC GLUCOSE SCREEN Routine 04/24/2021 8:55 Resul ts for this AM RN OBGYN procedure are i n the results section. CT ABDOMEN PELVIS W WO Routine 04/24/2021 8:29 R esults for this CONTRAST AM RN OBGYN procedure are i n the results section. CALCIUM LEVEL TOTAL AM 04/24/2021 2:40 Resu lts for this AM RN OBGYN procedure are i n the results section. .GLOMERULAR FILTRATION AM 04/24/2021 2:40 R esults for this RATE AM RN OBGYN procedure are i n the results section. SERUM CREATININE AM 04/24/2021 2:40 Results for this AM RN OBGYN procedure are i n the results section. ELECTROLYTE PANEL AM 04/24/2021 2:40 Result s for this AM RN OBGYN procedure are i n the results section. BLOOD UREA NITROGEN AM 04/24/2021 2:40 Resu lts for this AM RN OBGYN procedure are i n the results section. GLUCOSE LEVEL AM 04/24/2021 2:40 Results fo r this AM RN OBGYN procedure are i n the results section. MANUAL DIFFERENTIAL AM 04/24/2021 2:40 Resu lts for this AM RN OBGYN procedure are i n the results section. Results CBC AM 04/24/2021 2:40 Results for this AM RN OBGYN procedure are i n the results section. PHOSPHORUS LEVEL AM 04/24/2021 2:40 Results for this AM RN OBGYN procedure are i n the results section. MAGNESIUM LEVEL AM 04/24/2021 2:40 Results for this AM RN OBGYN procedure are i n the results section. BASIC METABOLIC PANEL, AM 04/24/2021 2:40 CALCIUM TOTAL AM RN OBGYN COMPLETE BLOOD COUNT W/ AM 04/24/2021 2:40 DIFFERENTIAL AM RN OBGYN URINE CULTURE Now 04/23/2021 10:38 Results fo r this PM RN OBGYN procedure are i n the results section. POC GLUCOSE SCREEN Routine 04/23/2021 10:19 Resul ts for this PM RN OBGYN procedure are i n the results section. WOUND CULTURE W/ GRAM Now 04/23/2021 10:01 Re sults for this STAIN PM RN OBGYN procedure are i n the results section. XR CHEST 1 VW Routine 04/23/2021 8:40 Results fo r this PM RN OBGYN procedure are i n the results section. XR HIP 2 OR 3 VW W Routine 04/23/2021 8:39 Resul ts for this PELVIS LEFT PM RN OBGYN procedure are i n the results section. TMP CROSSMATCH Now 04/23/2021 8:15 Results f or this INTERPRETATION PM RN OBGYN procedure are in the results section. TMP INTERPRETATION Routine 04/23/2021 8:15 Resul ts for this ANTIBODY SCREEN NEGATIVE PM RN OBGYN pro cedure are in the results section. CLOT EXPIRATION DATE Routine 04/23/2021 8:15 Res ults for this PM RN OBGYN procedure are i n the results section. ANTIBODY SCREEN Now 04/23/2021 8:15 Results for this PM RN OBGYN procedure are i n the results section. ABORH Now 04/23/2021 8:15 Results for this PM RN OBGYN procedure are i n the results section. TYPE AND SCREEN Now 04/23/2021 8:15 PM RN OBGYN HEMOGLOBIN A1C Routine 04/23/2021 8:15 Results f or this PM RN OBGYN procedure are i n the results section. FERRITIN LVL Routine 04/23/2021 8:15 Results for this PM RN OBGYN procedure are i n the results section. TRANSFERRIN Routine 04/23/2021 8:15 Results for this PM RN OBGYN procedure are i n the results section. IRON LEVEL Routine 04/23/2021 8:15 Results for this PM RN OBGYN procedure are i n the results section. BLOODCULTURE Now 04/23/2021 8:15 Results for this PM RN OBGYN procedure are i n the results section. CONFIRM ABORH TYPE Now 04/23/2021 8:14 Resul ts for this PM RN OBGYN procedure are i n the results section. COVID-19 (SARS-COV-2) Now 04/23/2021 5:23 Re sults for this ASYMPTOMATIC-LT PM RN OBGYN procedure ar e in the results section. TMP HIV 1/2 AG&AB PATH Routine 04/23/2021 4:13 R esults for this INTERP PM RN OBGYN procedure are i n the results section. URINALYSIS MICROSCOPIC Routine 04/23/2021 4:13 R esults for this PM RN OBGYN procedure are i n the results section. HEPATITIS B SURFACE AG Routine 04/23/2021 4:13 R esults for this W/CONFIRM PM RN OBGYN procedure are i n the results section. HEPATITIS B CORE TOTAL Routine 04/23/2021 4:13 R esults for this ANTIBODY PM RN OBGYN procedure are i n the results section. FRACTIONATED BILIRUBIN Now 04/23/2021 4:13 R esults for this PM RN OBGYN procedure are i n the results section. TOTAL PROTEIN Now 04/23/2021 4:13 Results fo r this PM RN OBGYN procedure are i n the results section. ASPARTATE Now 04/23/2021 4:13 Results for this AMINOTRANSFERASE PM RN OBGYN procedure a re in the results section. ALANINE AMINOTRANSFERASE Now 04/23/2021 4:13 Results for this PM RN OBGYN procedure are i n the results section. ALKALINE PHOSPHATASE Now 04/23/2021 4:13 Res ults for this PM RN OBGYN procedure are i n the results section. ALBUMIN LEVEL Now 04/23/2021 4:13 Results fo r this PM RN OBGYN procedure are i n the results section. CALCIUM LEVEL TOTAL Now 04/23/2021 4:13 Resu lts for this PM RN OBGYN procedure are i n the results section. .GLOMERULAR FILTRATION Now 04/23/2021 4:13 R esults for this RATE PM RN OBGYN procedure are i n the results section. SERUM CREATININE Now 04/23/2021 4:13 Results for this PM RN OBGYN procedure are i n the results section. ELECTROLYTE PANEL Now 04/23/2021 4:13 Result s for this PM RN OBGYN procedure are i n the results section. BLOOD UREA NITROGEN Now 04/23/2021 4:13 Resu lts for this PM RN OBGYN procedure are i n the results section. GLUCOSE LEVEL Now 04/23/2021 4:13 Results fo r this PM RN OBGYN procedure are i n the results section. MANUAL DIFFERENTIAL STAT 04/23/2021 4:13 Resu lts for this PM RN OBGYN procedure are i n the results section. Results CBC STAT 04/23/2021 4:13 Results for this PM RN OBGYN procedure are i n the results section. URINALYSIS WITH Now 04/23/2021 4:13 Results for this MICROSCOPIC IF INDICATED PM RN OBGYN pro cedure are in the results section. APTT Now 04/23/2021 4:13 Results for this PM RN OBGYN procedure are i n the results section. PROTHROMBIN TIME Now 04/23/2021 4:13 Results for this PM RN OBGYN procedure are i n the results section. HEPATITIS B SURFACE Now 04/23/2021 4:13 Resu lts for this ANTIBODY, SERUM PM RN OBGYN procedure ar e in the results section. HEPATITIS B SURFACE Now 04/23/2021 4:13 Resu lts for this ANTIGEN, SERUM PM RN OBGYN procedure are in the results section. HEPATITIS C VIRUS Now 04/23/2021 4:13 Result s for this ANTIBODY PM RN OBGYN procedure are i n the results section. HEPATITIS B CORE Now 04/23/2021 4:13 Results for this ANTIBODY PM RN OBGYN procedure are i n the results section. HIV-1/2 ANTIGEN AND Now 04/23/2021 4:13 Resu lts for this ANTIBODIES, FOURTH PM RN OBGYN procedure are in GENERATION the results section. PHOSPHORUS LEVEL Now 04/23/2021 4:13 Results for this PM RN OBGYN procedure are i n the results section. MAGNESIUM LEVEL Now 04/23/2021 4:13 Results for this PM RN OBGYN procedure are i n the results section. COMPREHENSIVE METABOLIC Now 04/23/2021 4:13 PANEL PM RN OBGYN COMPLETE BLOOD COUNT W/ Now 04/23/2021 4:13 DIFFERENTIAL PM RN OBGYN PATHOLOGY OUTSIDE Routine 12/27/2020 Results fo r this INTERPRETATION procedure are in the results section. after 05/10/2020 Results .Serum Creatinine (04/29/2021 6:48 AM RN OBGYN)Only the most recent of7 results within the time period is included. Pathologist Sig nature Creatinine 0.86 0.67 - 1.17 mg/dL [facility] CANCER C ENTER Specimen Blood Performing Organization Address City/State/ZIP Code Phon e Number [facility] CANCER Unless otherwise noted, [address] all lab tests performed by: Division of Pathology and Laboratory Medicine [address] [place] [address] [place] (ABNORMAL) .CBC (04/29/2021 6:48 AM RN OBGYN)Only the most recent of7 resultswithin the time period is included. [facility] WBC 11.9 (H) 4.0 - 11.0 [facility] K/uL [facility] RBC 4.60 4.50 - 6.00 [facility] M/uL [facility] Hgb 9.1 (L) 14.0 - 18.0 [facility] gm/dL [facility] Hct 32.0 (L) 40.0 - 54.0 % [facility] MCV 70 (L) 82 - 98 fL [facility] MCH 19.8 (L) 27.0 - 31.0 pg [facility] MCHC 28.4 (L) 31.0 - 36.0 [facility] gm/dL [facility] RDW-SD 61.8 (H) 35.1 - 46.3 fL [facility] RDW-CV 27.2 (H) 12.0 - 15.5 % [facility] Platelet count 561 (H) 140 - 440 K/uL [facility] MPV 8.2 4.0 - 10.4 fL [facility] INRBC 0.0 <=0.0 % [facility] Comment: [facility] The INRBC (instrument NRBC) value reflects the enumera tion of nucleated red blood cells contained in a 200uL samp le of whole blood analyzed by the instrument. This value may differ from the NRBC value reported in a manual differ ential, which is based on a 100 cell differential. Specimen Blood Performing Organization Address City/State/ZIP Code Phon e Number [facility] CANCER Unless otherwise noted, [address] all lab tests performed by: Division of Pathology and Laboratory Medicine [address] [place] [address] [place] Glomerular Filtration Rate (04/29/2021 6:48 AM RN OBGYN)Only the most recent of7 resultswithin the time period is included. Pathologist [facility] [place] eGFR-AA 122 >=60 [facility] Comment: mL/min/1.73 [facility] Normal eGFR: >= 60 mL/min/1.73 m2 sq. m Note: The eGFR is calculated using the CKD-EPI equation. The eGFR declines with age. eGFR <60 mL/min/1.73 m2 is considered as "decreased". This equation should only be used for patients 18 and older. According to the [facility] [place]'s Kidney Disease Outcome Quality Initiative (KDOQI) classification and 2012 Kidney Disease Improving Global Outcomes (KDIGO) Clinical Practice Guideline, the stage of CKD should be categorized based on estimated GFR. Stage Description GFR mL/min/1.73 m2 1 Normal or high GFR >=90 2 Mildly decreased GFR 60-89 3a Mildly to moderately decreased GFR 45-59 3b Moderately to severely decreased GFR 30-44 4 Severely decreased GFR 15-29 5 Kidney failure <15 eGFR-ALISON 105 >=60 [facility] Comment: mL/min/1.73 [facility] Normal eGFR: >= 60 mL/min/1.73 m2 sq. m Note: The eGFR is calculated using the CKD-EPI equation. The eGFR declines with age. eGFR <60 mL/min/1.73 m2 is considered as "decreased". This equation should only be used for patients 18 and older. According to the National [facility]'s Kidney Disease Outcome Quality Initiative (KDOQI) classification and 2012 Kidney Disease Improving Global Outcomes (KDIGO) Clinical Practice Guideline, the stage of CKD should be categorized based on estimated GFR. Stage Description GFR mL/min/1.73 m2 1 Normal or high GFR >=90 2 Mildly decreased GFR 60-89 3a Mildly to moderately decreased GFR 45-59 3b Moderately to severely decreased GFR 30-44 4 Severely decreased GFR 15-29 5 Kidney failure <15 Specimen Blood Performing Organization Address City/State/ZIP Code Phon e Number [facility] CANCER Unless otherwise noted, [place], [place] [id number] [place] [address] all lab tests performed by: Division of Pathology and Laboratory Medicine [address] (ABNORMAL) Differential (04/29/2021 6:48 AM RN OBGYN)Only the most recent of7 resultswithin the time period is included. Neutrophil % 64.0 42.0 - 66.0 % [facility] Lymphocyte % 24.9 24.0 - 44.0 % [facility] Monocyte % 7.0 2.0 - 7.0 % [facility] Eosinophil % 2.6 1.0 - 4.0 % [facility] Basophil % 0.8 0.0 - 1.0 % [facility] IGRE % 0.7 (H)Comment: 0.0 - 0.4 % [facility] IGRE % count [facility] includes Metamyelocytes, Myelocytes, and Promyelocytes. Neutrophil Abs 7.60 (H) 1.70 - 7.30 [facility] Lymphocyte Abs 2.96 1.00 - 4.80 [facility] Monocyte Abs 0.83 (H) 0.08 - 0.70 [facility] Eosinophil Abs 0.31 0.04 - 0.40 [facility] Basophil Abs 0.10 0.00 - 0.10 [facility] IG Abs 0.08 (H) 0.00 - 0.04 [facility] Specimen Blood Performing Organization Address [facility] Phon e Number [facility] Unless otherwise noted, [address] all lab tests performed by: Division of Pathology and Laboratory Medicine [address] [place] BUN (04/29/2021 6:48 AM RN OBGYN)Only the most recent of7 resultswithin the time period is included. Pathologist Sig nature BUN 12 6 - 23 mg/dL [facility] Specimen Blood Performing Organization Address [facility] Phon e Number [facility] Unless otherwise noted, [address] all lab tests performed by: Division of Pathology and Laboratory Medicine [address] [place] Phosphorus Level (04/29/2021 6:48 AM RN OBGYN)Only the most recent of7 resultswithin the time period is included. Pathologist Sig nature Phosphorus 3.8 2.5 - 4.5 mg/dL [facility] TER Specimen Blood Performing Organization Address [facility] Phon e [facility] Unless otherwise noted, [address] all lab tests performed by: Division of Pathology and Laboratory Medicine [address] [place] Magnesium Level (04/29/2021 6:48 AM RN OBGYN)Only the most recent of7 resultswithin the time period is included. Pathologist Sig nature Magnesium 1.9 1.6 - 2.6 mg/dL [facility] CANCER [address] Specimen Blood Performing Organization Address [facility] Phon e Number [facility] CANCER Unless otherwise noted, [address] all lab tests performed by: Division of Pathology and Laboratory Medicine [address] (ABNORMAL) Glucose Level (04/29/2021 6:48 AM RN OBGYN)Only the most recent of7 resultswithin the time period is included. Glucose Level 119 (H) 70 - 99 mg/dL [facility] Comment: CANCER CENTER Effective 11/22/15, the gluco se reference intervals have been updated based on [place] [employer] guidelines (Standards of Medical Care in Diabetes 2016. Diabetes Care 2016; 39: S13-S22). Fasting blood glucose: Normal: 70-99 mg/dL Impaired fasting glucose (in creased risk for diabetes or pre-diabetes): 100- 125 mg/dL Diabetes mellitus: >/=126 mg/dL Random blood glucose: Normal: 70-199 mg/dL Note: Random glucose >100 mg/dL is assoc iated with increased risk for diabetes Specimen Blood Performing Organization Address [facility] e Number [facility] CANCER Unless otherwise noted, [address] all lab tests performed by: Division of Pathology and Laboratory Medicine [address] Calcium Level (04/29/2021 6:48 AM RN OBGYN)Only the most recent of7 resultswithin the time period is included. Pathologist Sig nature Calcium Lvl 9.6 8.4 - 10.2 mg/dL [facility] CANCER CE NTER Specimen Blood Performing Organization Address [facility] Phon e Number [facility] CANCER Unless otherwise noted, [address] all lab tests performed by: Division of Pathology and Laboratory Medicine [address] Electrolyte Panel (04/29/2021 6:48 AM RN OBGYN)Only the most recent of7 results within the time period is included. Pathologist Sig nature Sodium Lvl 136 136 - 145 mEq/L [facility] Potassium Lvl 4.1 3.5 - 5.1 mEq/L [facility] Chloride 99 98 - 107 mEq/L [facility] CO2 25 22 - 29 mEq/L [facility] Anion Gap 12 4 - 14 mEq/L [facility] [place] Specimen Blood Performing Organization Address City/State/ZIP Code Phon e Number [facility] CANCER Unless otherwise noted, [place] [address] CENTER all lab tests performed by: Division of Pathology and Laboratory Medicine [address] US Leg Venous Doppler Bilateral (04/27/2021 8:47 AM RN OBGYN) Specimen Impressions [id number] - 04/27/2021 9:12 AM RN OBGYN Negative for deep venous thrombosis in t he bilateral lower extremities. The left proximal femoral vein is obscured by overlying bandages and not visualized. Narrative [id number] - 04/27/2021 9:12 AM RN OBGYN FULL RESULT: Examination: US LEG VENOUS DOPPLER BILAT ERAL, 04/27/2021 8:47 AM Clinical History: Groin mass Indication: Other:, PE, PE Comparison: None available. Technique: Grayscale and color/spectral Doppler ultrasound of the bilateral lower extremity veins was performed. Findings: The left common femoral and proximal fem oral vein are obscured by bandages over the groin. The left distal femoral popliteal and ca lf veins demonstrate color flow compressibility and response to augmentation. The right common femoral, femoral, and p opliteal veins demonstrate color flow, compressibility, and response to augmentation. The visualized posterior tibial, peroneal and anterior tibial veins are patent and compressible. Procedure Note Selena Aiken MD - 04/27/2021 FULL RESULT: Examination: US LEG VENOUS DOPPLER BILAT ERAL, 04/27/2021 8:47 AM Clinical History: Groin mass Indication: Other:, PE, PE Comparison: None available. Technique: Grayscale and color/spectral Doppler ultrasound of the bilateral lower extremity veins was performed. Findings: The left common femoral and proximal fem oral vein are obscured by bandages over the groin. The left distal femoral popliteal and ca lf veins demonstrate color flow compressibility and response to augmentation. The right common femoral, femoral, and p opliteal veins demonstrate color flow, compressibility, and response to augmentation. The visualized posterior tibial, peroneal and anterior tibial veins are patent and compressible. IMPRESSION: Negative for deep venous thrombosis in t he bilateral lower extremities. The left proximal femoral vein is obscured by overlying bandages and not visualized. Performing Organization Address City/State/ZIP Code Phon e Number [id number] MRI Pelvis with and without Contrast (04/26/2021 7:50 PM RN OBGYN) Specimen Impressions [id number] - 04/26/2021 10:33 PM RN OBGYN Large subcutaneous tumor extending from the left flank to the proximal left thigh as described above. There is left inguinal adenopathy. Narrative [id number] - 04/26/2021 10:33 PM RN OBGYN FULL RESULT: Examination: MRI PELVIS W WO CONTRAST, 1 7:50 PM. Clinical History: Groin mass Indication: Groin mass, Lt groin verruco us mass Comparison: CT of 04/24/2021 Technique: Multiplanar multisequence mag netic resonance imaging of the pelvis was performed without and with intravenous administration of contrast. Findings: A 23 x 15 x 5.6 cm solid vascular mass is seen in the subcutaneous tissues of the left groin, extending from the left flank down to the medial aspect of the proximal thigh. The mass demonstrates restri cted diffusion. It contains areas of int ernal necrosis. It involves the skin and the left iliopsoas muscle. There is associated inguinal adenopathy (10:99) with nodes measuring up to 1.5 cm. The bladder is unremarkable. There is no pelvic adenopathy. The left external iliac artery and vein are patent. No bone involvement is seen. Procedure Note Selena Aiken MD - 04/26/2021 FULL RESULT: Examination: MRI PELVIS W WO CONTRAST, 1 7:50 PM. Clinical History: Groin mass Indication: Groin mass, Lt groin verruco us mass Comparison: CT of 04/24/2021 Technique: Multiplanar multisequence mag netic resonance imaging of the pelvis was performed without and with intravenous administration of contrast. Findings: A 23 x 15 x 5.6 cm solid vascular mass is seen in the subcutaneous tissues of the left groin, extending from the left flank down to the medial aspect of the proximal thigh. The mass demonstrates restricted diffusion. It contains areas of internal necrosis. It involves the skin and the left iliopsoas muscle. There is associated inguinal adenopathy (10:99) with nodes measuring up to 1.5 cm. The bladder is unremarkable. There is no pelvic adenopathy. The left external iliac artery and vein are patent. No bone involvement is seen. IMPRESSION: Large subcutaneous tumor extending from the left flank to the proximal left thigh as described above. There is left inguinal adenopathy. Performing Organization Address City/State/ZIP Code Phon e Number [id number] (ABNORMAL) POC Glucose Screen (04/26/2021 3:20 PM RN OBGYN)Only the most recent of13 resultswithin the time period is included. POC Glucose 107 (H) 70 - 99 mg/dL POC [facility] Comment: RN Notified Capillary blood samples, e.g . obtained by fingerstick, may have inaccurate results in patients with decreased peripheral blood flow. Method description: All resu lts are measured using Electrochemistry test methodology. The glucose in the sample mixes with the reagents on the test strip. The reaction produces an electric current. The amount of current produced is proportional to the glucose concentration in the blood. PO Sample Type Capillary POC [facility], [address] [place] [address]; Basket Machine Operator: Melissa Carpio MD Specimen Blood Performing Organization Address City/State/ZIP Code Phon e Number POC [facility] Pathology Biopsy Interpretation (04/26/2021 11:30 AM RN OBGYN) Pathologist Sig nature Submitted Clinical Anemia due to chronic [facility] History blood loss [D50.0] Diagnosis A. Colon, cecum polyp, biopsy: [facility] BS Electronically signed Tubular adenoma by Viola Ferrell MD B. Duodenum, duodenum biopsy: on 04/30/2021 at 9:54 Changes compatible with chronic peptic duodenitis AM C. Stomach, antrum, biopsy: Antral type mucosa with reactive gastropathy No intestinal metaplasia or H. pylori (H&E stain) D. Stomach, gastric body, biopsy: Oxyntic mucosa with mild chronic inactive gastritis No intestinal metaplasia or H. pylori (H&E stain) E. Colon, ascending colon polyp, biopsy: Lipoma Gross Description A: [facility] Colon, cecal polyp: 2 soft t an tissue fragments, 0.2 cm and 0.6 cm, entirely submitted in A1. ET B: Duodenum, duodenum: Multiple soft ferrell tissue fragments, 0.1 cm - 0.4 cm, entirely submitted in B1. ET C: Stomach, antrum: Multiple so ft ferrell tissue fragments, 0.3 cm - 0.4 cm, entirely submitted in C1. ET D: Stomach, gastric body: Multi ple soft ferrell tissue fragments, 0.1 cm - 0.3 cm, entirely submitted in D1. ET E: Colon, ascending colon plyp (flat lipoma): 2 previously inked light ferrell tissue fragments, 0.1 cm and 0.15 cm, entirely submitted in E1. ET Disclaimer "Some tests reported [facility] here may have been developed and performance characteristics determined by [facility] Pathology and Laboratory Medicine. These tests have not been specifically cleared or approved by the U.S. Food and Drug Administration. If applicable, controls were reviewed and showed appropriate reactivity." Specimen Tissue - Colon Tissue - Duodenum Tissue - Stomach Tissue - Stomach Tissue - Colon Performing Organization Address City/State/ZIP Code Phon e Number [facility] [place] [address] [address] [facility] (04/26/2021 3:20 AM RN OBGYN) Pathologist Sig nature TSH 2.73 0.27 - 4.20 mcunit/mL [facility] CENTER Specimen Blood Performing Organization Address City/State/ZIP Code Phon e Number [facility] CANCER Unless otherwise noted, [place] [address] CENTER all lab tests performed by: Division of Pathology and Laboratory Medicine [address] [facility] [address] Chest Pulmonary Embolism with Contrast (04/25/2021 11:38 AM RN OBGYN) Specimen Impressions [id number] - 04/25/2021 11:51 AM RN OBGYN Subsegmental pulmonary emboli in the right lower lobe pulmonary artery are unchanged. There are no CT findings of right ventricular strain. Narrative [id number] - 04/25/2021 11:51 AM RN OBGYN FULL RESULT: Examination: CT CHEST PULMONARY EMBOLISM W CONTRAST, 04/25/2021 11:38 AM Clinical History: Groin mass. Indication: Pulmonary emboli detected on CT of the abdomen of 04/16/2021. Comparison: CT of the abdomen 04/24/2021 Technique: Spiral CT of the chest is per formed using intravenous contrast. Findings: 1. The pulmonary arteries are adequately opacified with contrast. There are segmental-subsegmental pulmonary emboli in the right lower lobe pulmonary artery that are unchanged. There are no central pulm onary emboli and there are no CT finding s of right ventricular strain. In this regard, the RV-LV ratio is less than 1. 2. There is an opacity in the peripheral aspect of the right lower lobe and is uncertain whether this is due to pulmonary hemorrhage-sequelae of pulmonary infarction or subsegmental atelectasis. 3. There are no enlarged intrathoracic l ymph nodes. 4. Limited images of the liver are anthony l. 5. Nodularity and lobularity of the adre nals consistent with a benign etiology is unchanged. Procedure Note Nirmal Howard MD - 04/25/2021 FULL RESULT: Examination: CT CHEST PULMONARY EMBOLISM W CONTRAST, 04/25/2021 11:38 AM Clinical History: Groin mass. Indication: Pulmonary emboli detected on CT of the abdomen of 04/16/2021. Comparison: CT of the abdomen 04/24/2021 Technique: Spiral CT of the chest is per formed using intravenous contrast. Findings: 1. The pulmonary arteries are adequately opacified with contrast. There are segmental-subsegmental pulmonary emboli in the right lower lobe pulmonary artery that are unchanged. There are no central pulmonary emboli and there are no CT findings of right ve ntricular strain. In this regard, the RV-LV ratio is less than 1. 2. There is an opacity in the peripheral aspect of the right lower lobe and is uncertain whether this is due to pulmonary hemorrhage-sequelae of pulmonary infarction or subsegmental atelectasis. 3. There are no enlarged intrathoracic l ymph nodes. 4. Limited images of the liver are anthony l. 5. Nodularity and lobularity of the adre nals consistent with a benign etiology is unchanged. IMPRESSION: Subsegmental pulmonary emboli in the rig ht lower lobe pulmonary artery are unchanged. There are no CT findings of right ventricular strain. Performing Organization Address City/State/ZIP Code Phon e Number [id number] Transfuse RBC:Transfusion Date: 04/24/2021 (04/25/2021 12:29 AM RN OBGYN)Only the most recent of2 resultswithin the time period is included.TMP HIV 1/2 Ag&Ab Path Interp (04/24/2021 12:40 PM RN OBGYN)Only the most recent of2 resultswithin the time period is included. [facility] HIV 1/2 Ag&Ab Negative for HIV-1 antigen a nd HIV-1/HIV-2 antibodies. No laboratory evidence of HIV infection. If acute HIV infection is suspected, consider testing for HIV-1 RNA. [facility] Interp Comment: CENTER MD Gaby WILHELM Dictated by: MD Gaby WILHELM Dictated Date/Time: 04.24.20 21:42 PM RN OBGYN Transcribed Date/Time: 04.24.2021 21:42 PM RN OBGYN Electronically Signed By: MD Gaby WILHELM on 04.24.2021 21:42 PM Specimen Blood Performing Organization Address City/[facility]/ZIP Code Phon e Number [facility] [address] [place] [id number] HIV-1/2 Antigen and Antibodies, Fourth Generation (04/24/2021 12:40 PM RN OBGYN)Only the most recent of2 resultswithin the time period is included. [facility] HIV 1/2 Ag & Ab, Non Reactive Non Reactive [facility] 4th Gen Comment: CENTER Performed at: [facility] [address] [place] [id number] Specimen Blood Performing Organization Address City/[facility] [facility] Phon e Number [facility] [address] [place] [id number] TMP HCV Ab Path Interp (04/24/2021 12:40 PM RN OBGYN) [facility] HCV Ab Path There is NO serologic evidence of Hepatitis C vi naima antibody. [facility] Interp Comment: CENTER MD Gaby WILHELM [id number] Dictated by: MD Gaby WILHELM Dictated Date/Time: 04.24.20 21:41 PM RN OBGYN Transcribed Date/Time: 04.24.2021 21:41 PM RN OBGYN Electronically Signed By: CAMACHO HERNÁNDEZ MD - [id number] on 04.24.2021 21:41 PM Specimen Blood Performing Organization Address [facility] Phon e Number [facility] [address] [place] [phone] (ABNORMAL) PTH Intact (04/24/2021 12:40 PM RN OBGYN) Pathologist [facility] melly PTH Intact 7.2 (L) 15.0 - 65.0 pg/mL [facility] Specimen Blood Performing Organization Address [facility] Phon e Number [facility] CANCER Unless otherwise noted, [address] all lab tests performed by: Division of Pathology and Laboratory Medicine Yadi Tomlinson Hepatitis C Virus Ab (04/24/2021 12:40 PM RN OBGYN)Only the most recent of2 results within the time period is included. Pathologist [facility] HCVAb. Non Reactive Non Reactive [facility] Comment: CENTER Antibody detection in the im munocompromised and immunosuppressed population may be delayed or absent entirely. Therefore serial testing, correlation with other clinical findings, and supplemental testin g (if available) should be taken into consideration when interpreting the results. Performed at: [facility] [address] [place] [id number] Specimen Blood Performing Organization Address [facility] Phon e Number [facility] [address] [place] [phone] (ABNORMAL) Calcium Ionized, Venous (04/24/2021 12:40 PM RN OBGYN) Pathologist [facility] melly V Ion Ca 1.39 (H) 1.15 - 1.29 mmol/L [facility] Specimen Blood Performing Organization Address [facility] Phon e Number [facility] CANCER Unless otherwise noted, [address] all lab tests performed by: Division of Pathology and Laboratory Medicine Yadi Tomlinson (ABNORMAL) Vitamin D 25OH (04/24/2021 12:40 PM RN OBGYN) Pathologist Abhi Vitamin D 25 OH 8 (L) 30 - 100 ng/mL [facility] Comment: CANCER CENTER Reference Range: Deficiency: <10 ng/mL Insufficiency: 10-29 ng/mL Sufficiency: 30-100 ng/mL Potential toxicity: >100 ng/mL Specimen Blood Performing Organization Address City/State/ZIP Code Phon e Number [facility] CANCER Unless otherwise noted, [address] all lab tests performed by: Division of Pathology and Laboratory Medicine [address] [place] [address] RBC Product Ready for Costume Seamstress (04/24/2021 11:11 AM RN OBGYN) [facility] PRBC Product Ready B2 Blood [facility] for Costume Seamstress BankComment: [facility] Product is ready for slate picker on April 24, 2021 12:20:47 RN OBGYN. Specimen Blood Performing Organization Address City/State/[facility] Code Phon e Number [facility] CANCER Unless otherwise noted, [address] all lab tests performed by: Division of Pathology and Laboratory Medicine [address] [place] [address] Prepare RBC:[id number], 2 Units (04/24/2021 11:11 AM RN OBGYN) [facility] PRBC Product Ready 2Comment: Red Blood [facility] Cells Available - [facility] Order Form 03 when ready for product issue. Unit Number [id number] [facility] Product Code [id number] [facility] CANCER CENTER Unit Expiration [facility] Unit Blood Type 0600 [facility] Product Code Text RBCIRLR CPD AS1 [facility] 500mL CANCER CENTER Crossmatch [id number] [facility] Expiration Date CANCER CENTER Unit Irradiated IRRADIATED [facility] Dispense Status ISSUED [facility] Unit Blood Type A Negative [facility] Product Costume Seamstress .BPAMComment: [facility] Location [facility] Unit Number [id number] [facility] Product Code [id number] [facility] CENTER Unit Expiration [facility] Unit Blood Type 0600 [facility] Product Code Text RBCIRLR Aph ACDA AS1 [facility] Bag 2 CANCER CENTER Crossmatch [id number] [facility] Expiration Date CANCER CENTER Unit Irradiated IRRADIATED [facility] Dispense Status ISSUED [facility] Unit Blood Type A Negative [facility] Product Costume Seamstress .BPAMComment: [facility] Location CANCER CENTER Specimen Blood Performing Organization Address City/State/ZIP Code Phon e Number [facility] CANCER Unless otherwise noted, [place] [address] CENTER all lab tests performed by: Division of Pathology and Laboratory Medicine [address] [facility] [address] Abdomen Pelvis with and without Contrast (04/24/2021 8:29 AM RN OBGYN) Specimen Addenda Addendum by Derick Prasad MD on 04/24/2021 10:36 AM RN OBGYN Findings and recommendations discussed w jensen Shaw at 10:32am on 04/24/21. Impressions [id number] - 04/24/2021 10:26 AM RN OBGYN 1. Large enhancing and hypervascular lob ulated mass, extending superiorly from the left inferolateral abdominal wall pannus and anterolateral left flank to the lateral left scrotal sac, with involvement of the anterior compartment of left thi gh, including the fascia, subcutaneous fat and anterior aspect of the left iliopsoas muscle. Given the patient's history of HPV infection, differential considerat ions include a primary squamous cell car cinoma. Other considerations in the differential, albeit somewhat less likely, would include a cutaneous or mesenchymal sarcoma. 2. Multiple prominent subcentimeter shor t axis diameter left common iliac and left external iliac lymph nodes, that may be reactive or metastatic. 3. Small linear filling defects in the r ight lower lobe pulmonary artery, compatible with subacute to chronic right lower lobe pulmonary embolism. Consider further evaluation with dedicated pulmonary embolism protocol CT if clinically warranted. Narrative [id number] - 04/24/2021 10:26 AM RN OBGYN FULL RESULT: Examination: CT ABDOMEN PELVIS W WO CONT RAST, 04/24/2021 8:29 AM Clinical History: Groin mass Indication: Groin mass Comparison: No priors. Technique: CT of the abdomen and pelvis was performed with intravenous contrast, preceded by CT of the abdomen without intravenous contrast. Findings: No suspicious liver lesions. The gallbladder is underdistended but ot herwise unremarkable. The spleen, pancreas, right adrenal are unremarkable. There is fullness of the medial limb of left adrenal measuring 1.9 cm as seen on serie s 5 image 63, that may relate to an unde rlying left adrenal adenoma. This can be further characterized with adrenal mass protocol CT or MRI if clinically warranted. The kidneys enhance symmetrically withou t hydronephrosis. The bowel is unobstructed. There are atherosclerotic calcifications of the aortoiliac arterial system. The spleen, pancreas, right adrenal are unremarkable. There is fullness of the left adrenal gland, that may relate to an adenoma of the medial limb of left adrenal, series 5 image 64. There are multiple prominent subcentimet er short axis diameter left common iliac, left external iliac lymph nodes and a subset of borderline enlarged left external iliac lymph nodes, that are nonspecifi c. [employer] left external iliac ly mph node measures 0.9 cm in short axis is seen on series 5 image 165./Additional lead customer service representative distal left external iliac lymph node measures 1.1 cm in short axis is seen on series 5 image 170. There is a confluent lobulated enhancing mass centered at the level of the skin and involving the subcutaneous fat of the left inferolateral abdominal wall and anterolateral left flank extending inferio rly to involve the left inguinal region, the anterior compartment of the proximal left thigh and lateral left scrotal sac, consistent with the known multilobulated papillary mass seen on physical exam. Multiple prominent collateral vessels ar e noted to course around and within this mass, indicative of underlying intrinsic vascularity. The mass measures 11.5 x 5.3 cm in axial dimensions as seen on seri es 5 image 173. Its craniocaudal extent can be best seen on the coronally reformatted images, demonstrating a maximal extent of at least 22.8 cm as seen on series 601 image 70, which demonstrate extensi on of the mass extends from the lower as pect of the left inferolateral abdominal wall pannus superiorly to the level of the lateral left scrotal sac inferiorly. Note that the inferior most aspect of this mass is not imaged on t his CT study. There are punctate foci of gas within th e superior aspect of this mass that may relate to areas of intrinsic necrosis or ulceration, seen for example on series 5 image 172. Enhancing tumor is seen to involve the f ascia, the fat of the anterior compartment of the left thigh as well as the anterior aspect of the left iliopsoas muscle, seen for example on series 5 image 178. Involvement of the lateral and inferior aspect of the left anterior abdominal wall can be seen on series 5 image 180. The mass abuts the left common femoral v ein, series 5 image 194, without evidence for encasement of the left common femoral artery or vein. No suspicious osseous lesions. There are chronic healed as well as ununited fracture deformities of the posterior aspects of the right 7-10th ribs, partially imaged. The imaged lung bases demonstrate a subt le linear filling defect within a branch of the right lower lobe pulmonary artery, seen on series 5 images 9-11, series 601 image 103 and series 602 image 82 as w ell as on series 5 images 3-5 at the lev el of the proximal right lower lobe pulmonary artery. The appearance of this finding, as a linear filling defect against the margin of the wall of the vessel sugg ests a subacute to chronic right lower l obe pulmonary embolism. There is subsegmental atelectasis in the right lower lobe. Procedure Note Derick Prasad MD - 04/24/2021 FULL RESULT: Examination: CT ABDOMEN PELVIS W WO CONT RAST, 04/24/2021 8:29 AM Clinical History: Groin mass Indication: Groin mass Comparison: No priors. Technique: CT of the abdomen and pelvis was performed with intravenous contrast, preceded by CT of the abdomen without intravenous contrast. Findings: No suspicious liver lesions. The gallbladder is underdistended but ot herwise unremarkable. The spleen, pancreas, right adrenal are unremarkable. There is fullness of the medial limb of left adrenal measuring 1.9 cm as seen on series 5 image 63, that may relate to an underlying left adrenal adenoma. This can be further characterized with adrenal mass protocol CT or MRI if clinically warranted. The kidneys enhance symmetrically withou t hydronephrosis. The bowel is unobstructed. There are atherosclerotic calcifications of the aortoiliac arterial system. The spleen, pancreas, right adrenal are unremarkable. There is fullness of the left adrenal gland, that may relate to an adenoma of the medial limb of left adrenal, series 5 image 64. There are multiple prominent subcentimet er short axis diameter left common iliac, left external iliac lymph nodes and a subset of borderline enlarged left external iliac lymph nodes, that are nonspecific. [employer] left external iliac lymph node measures 0.9 c m in short axis is seen on series 5 image 165./Additional lead customer service representative distal left external iliac lymph node measures 1.1 cm in short axis is seen on series 5 image 170. There is a confluent lobulated enhancing mass centered at the level of the skin and involving the subcutaneous fat of the left inferolateral abdominal wall and anterolateral left flank extending inferiorly to involve the left inguinal region, the an terior compartment of the proximal left thigh and lateral left scrotal sac, consistent with the known multilobulated papillary mass seen on physical exam. Multiple prominent collateral vessels are noted to course a round and within this mass, indicative of underlying intrinsic vascularity. The mass measures 11.5 x 5.3 cm in axial dimensions as seen on series 5 image 173. Its craniocaudal extent can be best seen on the coronally reformatted images, demonstrating a maximal extent of at least 22.8 cm as seen on series 601 image 70, which demonstrate extension of the mass extends from the lower aspect of the left inferolateral abdominal wall pannus superiorly to the level of the lateral left scrotal sac inferiorly. Note that the inferior most aspect of this mass is not imaged on th is CT study. There are punctate foci of gas within th e superior aspect of this mass that may relate to areas of intrinsic necrosis or ulceration, seen for example on series 5 image 172. Enhancing tumor is seen to involve the f ascia, the fat of the anterior compartment of the left thigh as well as the anterior aspect of the left iliopsoas muscle, seen for example on series 5 image 178. Involvement of the lateral and inferior aspect of the l eft anterior abdominal wall can be seen on series 5 image 180. The mass abuts the left common femoral v ein, series 5 image 194, without evidence for encasement of the left common femoral artery or vein. No suspicious osseous lesions. There are chronic healed as well as ununited fracture deformities of the posterior aspects of the right 7-10th ribs, partially imaged. The imaged lung bases demonstrate a subt le linear filling defect within a branch of the right lower lobe pulmonary artery, seen on series 5 images 9-11, series 601 image 103 and series 602 image 82 as well as on series 5 images 3-5 at the level of the proximal right lower lobe pulmonary artery. The appearance of this finding, as a linear filling defect against the margin of the wall of the vessel suggests a subacute to chronic right lower lobe pulmonary embolism. There is subsegmental atelectasis in the right lower lobe. IMPRESSION: 1. Large enhancing and hypervascular lob ulated mass, extending superiorly from the left inferolateral abdominal wall pannus and anterolateral left flank to the lateral left scrotal sac, with involvement of the anterior compartment of left thigh, including the fascia, subcutaneous fat and anterior aspect of the left iliopsoas muscle. Given the patient's history of HPV infection, differential considerations include a primary squamous cell carcinoma. Other considerations in the differential, albeit somewhat less likely, would include a cutaneous or mesenchymal sarcoma. 2. Multiple prominent subcentimeter shor t axis diameter left common iliac and left external iliac lymph nodes, that may be reactive or metastatic. 3. Small linear filling defects in the r ight lower lobe pulmonary artery, compatible with subacute to chronic right lower lobe pulmonary embolism. Consider further evaluation with dedicated pulmonary embolism protocol CT if clinically warranted. Performing Organization Address City/[facility]/ZIP [facility] Phon e Number [id number] Urine Culture (04/23/2021 10:38 PM RN OBGYN) Final Report No growth [facility] Path Review - The results have been review ed and electronically signed by Pathologist: [facility] Urine SHEILA MEIER MD #[id number] [facility] Specimen Urine, Clean Catch Performing Organization Address [facility] Phon e Number [facility] CANCER Unless otherwise noted, [place] [address] CENTER all lab tests performed by: Division of Pathology and Laboratory Medicine [address] (ABNORMAL) Wound Culture w/Gram Stain (04/23/2021 10:01 PM RN OBGYN) Final Report Many Coryneform Bacteria [facility] Susceptibility performed upon request. Plates wi ll be held for 5 days [facility] ... Few Presumptive Proteus mirabilis (A) Path Review The results have been review ed and electronically signed by Pathologist: [place] MD ALEKSANDR MEIER MD #[id number] CANCER [facility] (A) Gram Stain Report Moderate WBC's seen [facility] No organisms seen. [facility] (A) Organism Proteus mirabilis (A) [facility] Specimen Lesion Narrative [facility] - 2 9:04 PM RN OBGYN Groin Organism Antibiotic Method Susceptibility Proteus mirabilis *CHARLES expressed in mcg/mL MINIMUM INHIBITORY [place] C: MINT CONCENTRATION Proteus mirabilis Ampicillin MINIMUM INHIBITORY <=2: Suscep tible CONCENTRATION Proteus mirabilis Amoxicillin/Clavulanate MINIMUM INHIBITORY <=2 : Susceptible CONCENTRATION Proteus mirabilis Ampicillin/Sulbactam MINIMUM INHIBITORY <=2: S usceptible CONCENTRATION Proteus mirabilis Piperacillin/Tazobactam MINIMUM INHIBITORY <=4 : Susceptible CONCENTRATION Proteus mirabilis Cefpodoxime MINIMUM INHIBITORY <=0.25: Lin ceptible CONCENTRATION Proteus mirabilis Cefotaxime MINIMUM INHIBITORY <=1: Suscep tible CONCENTRATION Proteus mirabilis Ceftazidime MINIMUM INHIBITORY <=1: Suscep tible CONCENTRATION Proteus mirabilis Ceftriaxone MINIMUM INHIBITORY <=1: Suscep tible CONCENTRATION Proteus mirabilis Cefepime MINIMUM INHIBITORY <=1: Suscep tible CONCENTRATION Proteus mirabilis Aztreonam MINIMUM INHIBITORY <=1: Suscep tible CONCENTRATION Proteus mirabilis Ertapenem MINIMUM INHIBITORY <=0.5: Susc eptible CONCENTRATION Proteus mirabilis Meropenem MINIMUM INHIBITORY <=0.25: Lin ceptible CONCENTRATION Proteus mirabilis Amikacin MINIMUM INHIBITORY <=2: Suscep tible CONCENTRATION Proteus mirabilis Gentamicin MINIMUM INHIBITORY <=1: Suscep tible CONCENTRATION Proteus mirabilis Tobramycin MINIMUM INHIBITORY <=1: Suscep tible CONCENTRATION Proteus mirabilis Ciprofloxacin MINIMUM INHIBITORY <=0.25: Lin ceptible CONCENTRATION Proteus mirabilis Levofloxacin MINIMUM INHIBITORY 0.25: Susce ptible CONCENTRATION Proteus mirabilis Moxifloxacin MINIMUM INHIBITORY 2: Suscepti ble CONCENTRATION Proteus mirabilis Trimethoprim/Sulfa MINIMUM INHIBITORY <=20: Martinez sceptible CONCENTRATION Performing Organization Address City/State/ZIP Code Phon e Number [facility] CANCER Unless otherwise noted, [place] [address] CENTER all lab tests performed by: Division of Pathology and Laboratory Medicine [address] X-ray Chest 1 View (04/23/2021 8:40 PM RN OBGYN) Specimen Impressions [id number] - 04/23/2021 9:02 PM RN OBGYN Clear lungs. Narrative [id number] - 04/23/2021 9:02 PM RN OBGYN FULL RESULT: Examination: XR CHEST 1 VW, 04/23/2021 8 :40 PM Clinical History: Anemia due to chronic blood loss Cellulitis Groin mass Unknown primary site cancer Indication: Shortness of Breath Comparison: None Technique: Anteroposterior radiograph of the chest. Findings: Tubes and Lines: None. Heart and Mediastinum: The cardiac silho uette is prominent. There is elevation of the right hemidiaphragm. Pleura: There is no pneumothorax. Lungs: There is no evidence of consolida tion. Bones: No acute osseous abnormalities ar e present. Procedure Note Tae Jacobsen MD - 04/23/2021 FULL RESULT: Examination: XR CHEST 1 VW, 04/23/2021 8 :40 PM Clinical History: Anemia due to chronic blood loss Cellulitis Groin mass Unknown primary site cancer Indication: Shortness of Breath Comparison: None Technique: Anteroposterior radiograph of the chest. Findings: Tubes and Lines: None. Heart and Mediastinum: The cardiac silho uette is prominent. There is elevation of the right hemidiaphragm. Pleura: There is no pneumothorax. Lungs: There is no evidence of consolida tion. Bones: No acute osseous abnormalities ar e present. IMPRESSION: Clear lungs. Performing Organization Address City/State/ZIP Code Phon e Number [id number] XR Hip 2 or 3 Views w Pelvis Left (04/23/2021 8:39 PM RN OBGYN) Specimen Impressions [id number] - 04/23/2021 8:53 PM RN OBGYN Soft tissue fullness in the area of the left groin. Narrative [id number] - 04/23/2021 8:53 PM RN OBGYN FULL RESULT: Examination: XR HIP 2 OR 3 VW W PELVIS L EFT, April 23, 2021 Clinical History: Anemia due to chronic blood loss Cellulitis Groin mass Unknown primary site cancer Indication: Cellulitis, groin mass Comparison: None available Technique: AP view of the pelvis and con ed AP and frog-leg lateral views of the left hip Findings: The examination is limited by low contrast technique which may relate to body habitus. Hip and sacroiliac joints are maintained. No fractures noted. No focal lytic or sclerotic lesions identif ied. Coned images of the left hip do sug gest some fullness in the area of the left groin, though whether this is due to body habitus or to an actual pathologic mass is not clear. Procedure Note Gela Landry MD - 04/23/2021 FULL RESULT: Examination: XR HIP 2 OR 3 VW W PELVIS L EFT, April 23, 2021 Clinical History: Anemia due to chronic blood loss Cellulitis Groin mass Unknown primary site cancer Indication: Cellulitis, groin mass Comparison: None available Technique: AP view of the pelvis and con ed AP and frog-leg lateral views of the left hip Findings: The examination is limited by low contrast technique which may relate to body habitus. Hip and sacroiliac joints are maintained. No fractures noted. No focal lytic or sclerotic lesions identified. Coned images of the left hip do suggest some f ullness in the area of the left groin, though whether this is due to body habitus or to an actual pathologic mass is not clear. IMPRESSION: Soft tissue fullness in the area of the left groin. Performing Organization Address City/State/ZIP Code Phon e Number [id number] Clot Expiration Date (04/23/2021 8:15 PM RN OBGYN) Pathologist Sig nature T & S Expiration 04/26/2021 [facility]CER CENTER Specimen Blood Performing Organization Address City/State/ZIP Code Phon e Number [facility] CANCER Unless otherwise noted, [place] [address] CENTER all lab tests performed by: Division of Pathology and Laboratory Medicine [address] [place] [address] TMP Interpretation Antibody Screen Negative (04/23/2021 8:15 PM RN OBGYN) TMP Auto Neg ABSC At the present time, patien t plasma shows no evidence of RBC alloantibodies. [place] MD BRANDON Interp Comment: CANCER CENTER CAMACHO HERNÁNDEZ MD - [id number] Dictated by: MD Gaby WILHELM [id number] Dictated Date/Time: 04.24.20 5:42 AM RN OBGYN Transcribed Date/Time: 04.24.2021 5:42 AM RN OBGYN Electronically Signed By: CAMACHO HERNÁNDEZ MD - [id number] on 04.24.2021 5:42 AM C Specimen Blood Performing Organization Address City/[facility]/ZIP Code Phon e Number [facility] CANCER Unless otherwise noted, [address] all lab tests performed by: Division of Pathology and Laboratory Medicine [facility] Dony Tomlinson TMP Interpretation Crossmatch (04/23/2021 8:15 PM RN OBGYN) TMP XM Interp RBC units crossmatched for transfusion appear ac ceptable. [facility] Comment: CANCER CENTER MD Gaby WILHELM [id number] Dictated by: MD Gaby WILHELM [id number] Dictated Date/Time: 04.24.20 15:19 PM RN OBGYN Transcribed Date/Time: 04.24.2021 15:19 PM RN OBGYN Electronically Signed By: MD Gaby WILHELM [id number] on 04.24.2021 15:19 PM Specimen Blood Performing Organization Address [facility] Phon e Number [facility] CANCER Unless otherwise noted, [address] all lab tests performed by: Division of Pathology and Laboratory Medicine [facility] Dony Tomlinson ABORh (04/23/2021 8:15 PM RN OBGYN) Pathologist Sig melly ABORh. A POS [facility] Specimen Blood Performing Organization Address City/[facility]/ZIP [facility] Phon e Number [facility] CANCER Unless otherwise noted, [address] all lab tests performed by: Division of Pathology and Laboratory Medicine [facility] Donyhoang Tomlinson Blood Culture (04/23/2021 8:15 PM RN OBGYN) Final Report No growth [facility] Path Review - Immunity and antibiotic use may render culture negative. Ongoing infection requires repeat culture. The results have been reviewed and electronically signed by Pathologist: [facility] ALEKSANDR Bottle/Isolator Tash Bui MD, PhD #[id number] CANCER C ENTER Specimen Blood Performing Organization Address City/[facility]/ZIP Code Phon e Number [facility] Unless otherwise noted, [address] all lab tests performed by: Division of Pathology and Laboratory Medicine [address] Antibody Screen (04/23/2021 8:15 PM RN OBGYN) Pathologist Sig nature ABSC. Negative ABSC [facility] CENTE R Specimen Blood Performing Organization Address [facility]/ZIP Code Phon e Number [facility] CANCER Unless otherwise noted, [address] all lab tests performed by: Division of Pathology and Laboratory Medicine [address] Transferrin with TIBC (04/23/2021 8:15 PM RN OBGYN) Pathologist Sig nature Transferrin 225 200 - 360 mg/dL [facility] [address] TIBC 315 250 - 450 mcg/dL [facility] CE NTER Specimen Blood Performing Organization Address [facility] Phon e Number [facility] CANCER Unless otherwise noted, [address] all lab tests performed by: Division of Pathology and Laboratory Medicine [address] (ABNORMAL) Iron Level (04/23/2021 8:15 PM RN OBGYN) Pathologist Sig nature Iron 14 (L) 59 - 158 mcg/dL [facility] [address] Specimen Blood Performing Organization Address [facility] Phon e Number [facility] CANCER Unless otherwise noted, [address] all lab tests performed by: Division of Pathology and Laboratory Medicine [address] (ABNORMAL) Hemoglobin A1c (04/23/2021 8:15 PM RN OBGYN) Pathologist Sig nature A1C 5.8 (H) 4.3 - 5.6 % [facility] Comment: CANCER CENTER HbA1c values >=6.5% are diagnostic of diabetes mellitu s. Diagnosis should be confirmed by repeat testing. Therapeutic Action suggested: >8.0% HbA1c; Goal of therapy: <7.0% HbA1c Specimen Blood Performing Organization Address City/[facility]/ZIP Code Phon e Number [facility] CANCER Unless otherwise noted, [address] all lab tests performed by: Division of Pathology and Laboratory Medicine [address] (ABNORMAL) Ferritin Level (04/23/2021 8:15 PM RN OBGYN) Pathologist Sig nature Ferritin Lvl 21 (L) 30 - 400 ng/mL [facility] CENT ER Specimen Blood Performing Organization Address City/[facility]/ZIP Code Phon e Number [facility] CANCER Unless otherwise noted, [address] all lab tests performed by: Division of Pathology and Laboratory Medicine [address] [place] Confirm ABORh (04/23/2021 8:14 PM RN OBGYN) Pathologist Sig nature ABORh Confirm. A POS [facility] CANCER CENT ER Specimen Blood Performing Organization Address City/State/ZIP Code Phon e Number [facility] CANCER Unless otherwise noted, [address] all lab tests performed by: Division of Pathology and Laboratory Medicine [address] [place] COVID-19 (SARS-CoV-2)Asymptomatic-LT (04/23/2021 5:23 PM RN OBGYN) COVID19 Not Detected Not Detected [facility] (SARS-CoV-2) [facility] COVID19 SARS Inpatient Admission [facility] Indication CANCER CENTER Covid 19 Comment See Note [facility] Comment: [facility] The carolina SARS-CoV-2 nucleic acid test for use on the carolina Heather System is a real-time RT-PCR assay intended for the qualitative detection of SARS-CoV-2 (COVID-19) viral RNA in nasopharyngeal swabs from either individuals suspected of COVID-19 by their healthcare provider or from any individual, including individuals without symptoms or other reasons to suspect COVID-19. A fact sheet for patients provided by the watch engineer ([employer]) can be reviewed at: https://www.fda.gov/media/15 8709/download. A fact sheet for Health Care providers is provided by the watch engineer ([employer]) and can be reviewed at: https://www.fda.gov/media/983415/download Results must be interpreted within the context of all relevant clinical and laboratory findings and should not form the sole basis for a diagnosis or treatment decision. Positive results do not rule out bacterial infection or co- infection with other viruses. Negative results do not preclude SARS-CoV-2 infection and must be combined with clinical observations, patient history, and/or epidemiological information. This assay has been authoriz ed by the FDA for use only under Emergency Use Authorization (EUA) in laboratories that have been CLIA-certified to perform moderate-complexity and high-complexity tests. The Microbiology Laboratory at [facility], CLIA Accreditation # [id number] and CAP Accreditation #[id number], verified the performance characteristics of this assay. Internal controls are used to monitor all stages of the test process. Specimen Nasopharyngeal Swab Performing Organization Address [facility] Phon e Number [facility] Unless otherwise noted, [address] all lab tests performed by: Division of Pathology and Laboratory Medicine [address] [place] [address] [place] Hepatitis B Core Total Antibody (04/23/2021 4:13 PM RN OBGYN) Pathologist [facility] HBc Total Ab-[place] Negative Negative [facility] Comment: CANCER CENTER Test Performed by: [facility] [place] [address] Basket Machine Operator: Gael Westbrook M.D. Ph.D.; CLIA# [id number] Specimen Blood Performing Organization Address [facility] Phon e Number [facility] Unless otherwise noted, [address] all lab tests performed by: Division of Pathology and Laboratory Medicine [address] [place] [address] Fractionated Bilirubin (04/23/2021 4:13 PM RN OBGYN) [facility] Bili Total 0.3 <=1.2 mg/dL [facility] Comment: CANCER CENTER Indocyanine Green (ICG) may cause falsely elevated bilirubin results. Total and direct bilirubin must not be measured from samples containing indocyanine green. False elevation of total matt irubin can be seen in patients with IgG concentrations above 28 g/L. Bili Direct <0.2Comment: <=0.3 mg/dL [facility] Indocyanine Green CANCER CENTER (ICG) may cause falsely elevated bilirubin results. Total and direct bilirubin must not be measured from samples containing indocyanine green. Bili Indirect See NoteComment: 0.0 - 0.9 [facility] Unable to calculate mg/dL CANCER CENTER Indirect Bilirubin result due to some parameters are outside reportable range Specimen Blood Performing Organization Address [facility] Phon e Number [facility] CANCER Unless otherwise noted, [address] all lab tests performed by: Division of Pathology and Laboratory Medicine [address] [place] [address] Hepatitis B Surface Ag w/Confirm (04/23/2021 4:13 PM RN OBGYN) [facility] Hep Bs Ag-[place] Negative Negative [facility] Comment: CANCER CENTER Test Performed by: [facility] [place] [address] Basket Machine Operator: Gael Westbrook M.D. Ph.D.; IA# [id number] Specimen Blood Performing Organization Address City/[facility] Phon e Number [facility] Unless otherwise noted, [address] all lab tests performed by: Division of Pathology and Laboratory Medicine [address] [place] [address] Hepatitis B Total Ig Core Ab (SCREENING) (anti-HBc total Ig; HBcAb total Ig) (04/23/2021 4:13 PM RN OBGYN) Pathologist Sig nature HBcAb Received See NoteComment: [facility] HBcAb was sent to a CANCER CENTER reference lab for testing. Expect results on Hepatitis B Core Total Ab within 96 hours. Specimen Blood Performing Organization Address City/[facility] Phon e Number [facility] Unless otherwise noted, [address] all lab tests performed by: Division of Pathology and Laboratory Medicine [address] [place] [address] (ABNORMAL) Urinalysis with Microscopic (04/23/2021 4:13 PM RN OBGYN) Pathologist Sig nature UA WBC 4 (H) 0 - 2 /HPF [facility] UA RBC 4 (H) 0 - 2 /HPF [facility] UA Mucous NOT SEEN Not Seen-Trace /HPF [facility] UA Bacteria NOT SEEN NOT SEEN /HPF [facility] UA Squam Epi OCC None-Occasional [facility] CANCER /[facility] Specimen Urine Narrative [facility] - 1 5:08 PM RN OBGYN Some reporting parameters within the Urinalysis test have changed due to the implementation of new in strumentation in the Main Chamberino, allowi ng greater sensitivity of measurement. Urinalysis results reported by the [facility] using existing instrumentation, as well as Urinalysis t esting performed manually or by backup methodology at the [facility] will remain relatively unchanged. New reporting parameters and units will now be reported for all campuses. Performing Organization Address City/[facility] Phon e Number [facility] CANCER Unless otherwise noted, [address] all lab tests performed by: Division of Pathology and Laboratory Medicine [address] [place] [address] aPTT (04/23/2021 4:13 PM RN OBGYN) Pathologist Sig nature aPTT 33.8 24.7 - 36.8 second(s) [facility] CENTER Specimen Blood Performing Organization Address City/[facility]/ZIP [facility] Phon e Number [facility] CANCER Unless otherwise noted, [address] all lab tests performed by: Division of Pathology and Laboratory Medicine [facility] Donyhoang Tomlinson Hepatitis B Surface Antibody (04/23/2021 4:13 PM RN OBGYN) Hep Bs Ab-[place] Positive [facility] Comment: [facility] Patient is considered to be immune to infection with H BV. REFERENCE VALUE ------ Unvaccinated: Negative Vaccinated: Positive Hep Bs Ab Qn-[place] 42.1 mIU/mL [facility] Comment: [facility] REFERENCE VALUE ------ Unvaccinated: <5.0 Vaccinated: >=12.0 Test Performed by: [facility] [address] [place] [address] Basket Machine Operator: Gael Westbrook M.D. Ph.D.; CLIA# [id number] Specimen Blood Performing Organization Address City/[facility] Phon e Number [facility] Unless otherwise noted, [address] all lab tests performed by: Division of Pathology and Laboratory Medicine [address] [place], [place] [address] Hepatitis B Surface Ag (04/23/2021 4:13 PM RN OBGYN) Pathologist Sig nature HBsAg Received See NoteComment: [facility] HBsAg was sent to a [facility] reference lab for testing. Expect results on Hepatitis B Surface Antigen w/ Confirm within 96 hours. Specimen Blood Performing Organization Address City/[facility] Code Phon e Number [facility] CANCER Unless otherwise noted, [address] all lab tests performed by: Division of Pathology and Laboratory Medicine [address] [place] [address] [place] (ABNORMAL) Urinalysis w/Microscopic if Indicated (04/23/2021 4:13 PM RN OBGYN) Pathologist Sig nature UA Color Yellow Straw-Yellow [facility] UA Appear Hazy (A) Clear [facility] UA Glucose NEG NEG mg/dL [facility] UA Bili NEG NEG [facility] UA Ketones NEG NEG mg/dL [facility] UA Spec Grav 1.015 1.003 - 1.035 [facility] UA Blood NEG NEG [facility] UA pH 5.0 5.0 - 9.0 [facility] UA Protein NEG NEG mg/dL [facility] UA Urobilinogen NEG NEG [facility] UA Nitrite NEG NEG [facility] UA Leuk Est NEG NEG [facility] Specimen Urine Performing Organization Address City/[facility]/ZIP Code Phon e Number [facility] CANCER Unless otherwise noted, [address] all lab tests performed by: Division of Pathology and Laboratory Medicine [address] (ABNORMAL) Prothrombin Time with INR (04/23/2021 4:13 PM RN OBGYN) Pathologist Sig nature PT 15.8 (H)Comment: 11.5 - 13.9 [facility] Repeated and second(s) CANCER CENTER Verified INR 1.37 (H)Comment: 0.90 - 1.10 [facility] and CANCER CENTER Verified Specimen Blood Performing Organization Address City/[facility] Phon e Number [facility] Unless otherwise noted, [address] all lab tests performed by: Division of Pathology and Laboratory Medicine [address] ALT (04/23/2021 4:13 PM RN OBGYN) Pathologist Sig nature ALT 7 <=41 U/L [facility] Specimen Blood Performing Organization Address City/[facility]/ZIP Code Phon e Number [facility] CANCER Unless otherwise noted, [address] all lab tests performed by: Division of Pathology and Laboratory Medicine [address] Aspartate Aminotransferase (04/23/2021 4:13 PM RN OBGYN) Pathologist Sig nature AST 12 <=40 U/L [facility] Specimen Blood Performing Organization Address City/[facility]/ZIP [facility] Phon e Number [facility] CANCER Unless otherwise noted, [address] all lab tests performed by: Division of Pathology and Laboratory Medicine [address] Total Protein (04/23/2021 4:13 PM RN OBGYN) Pathologist Sig nature Total Protein 7.8 6.4 - 8.3 g/dL [facility] [employer] [facility] TER Specimen Blood Performing Organization Address City/[facility]/ZIP [facility] Phon e Number [facility] CANCER Unless otherwise noted, [address] all lab tests performed by: Division of Pathology and Laboratory Medicine [address] [place] [address] Alkaline Phosphatase (04/23/2021 4:13 PM RN OBGYN) Pathologist Sig [facility] Alk Phos 100 40 - 129 U/L [facility] Specimen Blood Performing Organization Address City/State/ZIP Code Phon e Number [facility] CANCER Unless otherwise noted, [address] all lab tests performed by: Division of Pathology and Laboratory Medicine [address] [place] [address] (ABNORMAL) Albumin Level (04/23/2021 4:13 PM RN OBGYN) Pathologist Sig [facility] Albumin Lvl 2.7 (L) 3.5 - 5.2 gm/dL [facility] Specimen Blood Performing Organization Address City/[facility] Phon e Number [facility] CANCER Unless otherwise noted, [address] all lab tests performed by: Division of Pathology and Laboratory Medicine [address] [place] [address] Pathology Outside Interpretation (12/27/2020) Pathologist Sig nature Materials Received Accession#, Stained, Block, Unstained Collect ed Received [facility] Jamgle A. [id number], 2 SS, 0 BLOCKS, 0 USS 12/27/2020 Addendum 2 low Risk Human Papilloma Vir us testing (HPV subtypes tested - 6, 11, 40, 42, 43 and 44) by RNAScope HPV LR6 assay [facility] [employer] Addendum electronically signed A in-situ hybridization stud y for high and low risk Human Papilloma Virus (HPV) was performed at [facility] using the unstained slides cut from the submitted tissue block. The lesional cells express low Risk HPV, but are negative for high Risk HPV. by Michelle Hernández MD on 05/04/2021 at 11: 50 AM Clinical-pathologic correlation is necessary. Addendum 1 Additional material received on , Outside 0 SS, 1 BLOCK,0 USS, collected on 12/27/2020. [facility] Addendum electronically signed No additional study will be performed. A sarah interpretation remains unchanged. 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 [facility] Sections demonstrate fragmen ts of atypical squamous epithelium with clear cell changes involving fibroconnective tissue. As per clinical picture in Epic, the patient has a large exophytic lesion in the inguinal area. Thus, this martinez bmitted small fragmented specimen may not be lead customer service representative of the entire lesion. If clinically indicated, an additional biopsy including examination of ancillary study for HPV status of the lesion is recommended. Correlation with clinical st udy and results of subsequent specimens at this anatomic location is necessary. This case was studied and di scussed at the dermatopathology faculty conference. Cheesemaking Laborer(s) VGP, CAT, JLC, PN, WCC [facility] Disclaimer "Some tests reported [facility] here may have been developed and performance characteristics determined by [facility] Pathology and Laboratory Medicine. These tests have not been specifically cleared or approved by the U.S. Food and Drug Administration. If applicable, controls were reviewed and showed appropriate reactivity." Specimen Tissue Performing Organization Address City/State/ZIP Code Phon e Number [facility] [place] [address] [address] [place] after 05/10/2020 Insurance Payer Benefit Plan / Subscriber ID Effective Phone Address T ype Group Dates [employer] [id number] 2020-Pres [address] Medicaid [place] [id number] Advance Directives Code Status Date Activated Date Inactivated Comments Full Code 04/23/2021 5:50 PM 04/29/2021 6:51 PM
--- OUTSIDE RECORDS SUMMARY | 2021-05-10 13:40 | XMS REPORT | Continuity of Care Document ---
:1975 Author Organization [facility] t Address [address] [place] [address] Care Team Providers Name Role Phone MARIA E VALDEZ Attending Clinician Unavailable SYSTEM, NOT IN Attending Clinician Unavailable Kaylene PEREA Attending Clinician Unavailable BECCA Attending Clinician Unavailable Sanjuanita MCKINNEY Attending Clinician Carina ISRAEL Attending Clinician Freya MCKINNEY S Attending Clinician Vee Taylor MD Attending Clinician Valeria BARAJAS Attending Clinician Feliciano BARAJAS Attending Clinician FELICIANO Attending Clinician Unavailable Kevin BARAJAS, Juan Attending Clinician Neda BARAJAS, HAnisha Attending Clinician Juan CHANG Attending Clinician Unavailable Christian Valdez MD Attending Clinician Gia Merrill MD Attending Clinician Abril BARAJAS SAnisha Attending Clinician Rivera MOYA Attending Clinician Oseas BARAJAS Attending Clinician Rostata Attending Clinician Unavailable DR GOLDIE Attending Clinician Unavailable Christian VALDEZ Admitting Clinician Unavailable Kaylene PEREA Admitting Clinician Unavailable VALERIA Admitting Clinician Unavailable Physician, Primary or Family Admitting Clinician Unavailpat AMEZCUA DR Admitting Clinician Unavailable Payers Payer Name Policy Type Policy Number Effective Date Expiration Date Cornell kauffman [employer] [id number] 2020 STAR NON SSI 00:00:00 [employer] STAR [id number] 2020 PLUS 00:00:00 Problems Condition Condition Condition Status Onset Resolution Last Treating Co mments Source Name Details Category Date Date Treatment Clinician Date Personal Personal Disease Active Overview: MD history of history of 05-03 Formattin Anderso colonic colonic 00:00: g of this n polyp polyp 00 note might be different from the original. Added automatic ally from request for surgery [id number] Gastritis Gastritis Disease Active 2020-04 2-30 Anderso 00:00: n 00 Vitamin D Vitamin D Disease Active 2020-04 MD deficiency deficiency 2-30 An derso 00:00: n 00 Single Single Disease Active 2020-04 subsegment subsegment 2-29 An derso al al 00:00: n pulmonary pulmonary 00 embolism embolism without without acute cor acute cor pulmonale pulmonale Obstructiv Obstructiv Disease Active 2020-04 M D e sleep e sleep 06-25 Anderso apnea apnea 00:00: n 00 History of History of Disease Active 2020-04 M D diabetes diabetes 2-28 Vignesh o mellitus mellitus 00:00: n type 2 type 2 00 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 2-28 An derso blood loss blood loss 00:00: n 00 Osteoarthr Osteoarthr Disease Active 2020-04 M D itis itis 2-28 Anderso 00:00: n 00 Hypercalce Hypercalce Disease Active 2020-04 M D maddie maddie 2- Anderso 00:00: n 00 Iron Iron Disease Active 2020-04 MD deficiency deficiency 2-28 An derso anemia anemia 00:00: n 00 Groin mass Groin mass Disease Active 2020-04 M D 2-27 Anderso 00:00: n 00 Cellulitis Cellulitis Disease Active 2020-04 M D 2-27 Anderso 00:00: n 00 Allergies, Adverse Reactions, Alerts Allergy Allergy Status Severity Reaction(s) Onset Inactive Treating Comm ents Source Name Type Date Date Clinician No Known DA Active U [facility]04 Clear Allergie 00:00: Green s [facility] No Known DA Active U N/A [facility] 5[facility]04 Clear Allergie 00:00: Green s [facility] NO KNOWN DA Active U [facility] CONTRAST 4-20 Clear MEDIA 00:00: Green ALLERG [facility] NO KNOWN DA Active U [facility] OTHER 4-20 Clear ALLERGIE 00:00: Green S [facility] No Known DA Active U [facility] 4-20 Clear Allergie 00:00: Green s [facility] No Known DA Active U [facility] Food 4-20 Clear Allergie 00:00: Green s [facility] Family History Family Member Diagnosis Comments Start Date Stop Date Source Natural father Alcohol abuse MD John jimenez Natural mother Completed Suicide MD Cortez Social History Social Habit Start Date Stop Date Quantity Comments Source History of tobacco Current smoker MD Cortez use Exposure to Not sure MD Cortez SARS-CoV-2 (event) Alcohol intake 2021-05-01 2021-05-01 Ex-drinker MD Katharina bañuelos 00:00:00 00:00:00 (finding) Cigarettes smoked 2021-04-23 2021-04-23 MD John jimenez current (pack per 00:00:00 00:00:00 day) - Reported Tobacco use and 2021-04-23 2021-04-23 Smokeless tobacco MD Cortez exposure 00:00:00 00:00:00 non-user Sex Ass[birth year] At [birth year] MD [place] on 00:00:00 00:00:00 Smoking Status Start Date Stop Date Source Ex-smoker 2021-04-23 00:00:00 2021-04-23 00:00:00 MD Padilla son Medications Ordered Filled Start Stop Current Ordering Indication Dosage Frequency Signature Comments Components Source Medication Medication Date Date Medication? Clinician (SIG) Name Name ergocalcife 2021- Yes Obstructive 35626S Take 1 MD parikh 05-03 sleep apnea capsule John rso (DRISDOL) 00:00: 05:59 (50,000 n 50,000 00 :00 Units) by units mouth once capsule a week for 8 doses. DULoxetine Yes Groin mass 30mg Take 1 MD (CYMBALTA) -03 <Unspecifie capsule Anderso 30 mg 00:00: d side; (30 mg) by n capsule 00 Unspecified mouth site; daily. Intra-abdom inal and pelvic swelling, mass and lump> pantoprazol 2021- Yes Obstructive 40mg Take 1 MD e 04-30 sleep apnea tablet (40 A nderso (PROTONIX) 00:00: 05:59 mg) by n 40 mg EC 00 :00 mouth tablet every morning before breakfast for 30 days. morphine Yes Groin mass 60mg Take 1 M D (MS CONTIN) 04-29 <Unspecifie tablet (60 Anderso 60 mg 12 hr 00:00: d side; mg) by n tablet 00 Unspecified mouth site; every 8 Intra-abdom (eight) inal and hours. pelvic swelling, mass and lump> morphine Yes Groin mass 22.5mg Take 1 and MD (MSIR) 15 - <Unspecifie one-half Anderso mg IR 00:00: d side; tablets n tablet 00 Unspecified (22.5 mg) site; by mouth Intra-abdom every 4 inal and (four) pelvic hours as swelling, needed for mass and pain. lump> haloperidol Yes Groin mass 1mg Take 1 MD (HALDOL) 1 - <Unspecifie tablet (1 Anderso mg tablet 00:00: d side; mg) by n 00 Unspecified mouth site; every 6 Intra-abdom (six) inal and hours as pelvic needed swelling, (anxiety, mass and sleep). lump> melatonin Yes Groin mass 10mg Take 1 MD 10 mg -02 <Unspecifie tablet (10 A nderso tablet 00:00: d side; mg) by n 00 Unspecified mouth at site; bedtime. Intra-abdom inal and pelvic swelling, mass and lump> polyethylen Yes Groin mass Fill MD e glycol 1-02 <Unspecifie powder up Anderso (GLYCOLAX) 00:00: d side; to line n 17 00 Unspecified inside cap gram/dose site; marked powder Intra-abdom 17g. Stir inal and and pelvic dissolve swelling, in 4 to 8 mass and ounces of lump> any beverage, thenk drink my mouth once daily for constipati on. senna Yes Groin mass 2{tbl} Take 2 MD (SENOKOT) 1-02 <Unspecifie tablets by Anderso 8.6 mg 00:00: d side; mouth n tablet 00 Unspecified twice site; daily. Intra-abdom inal and pelvic swelling, mass and lump> naloxone Yes Groin mass Use 1 dose MD (Narcan) 4 1-02 <Unspecifie into one Anderso mg/actuatio 00:00: d side; nostril as n n nasal 00 Unspecified needed for spray site; opioid Intra-abdom overdose. inal and Do not pelvic prime or swelling, test the mass and inhaler lump> prior to adminstrat ion. Give another dose into the other nostril after 2 to 3 minutes if the patient does not respond or responds and then relapses into respirator y depression . nystatin Yes Obstructive Apply M D (MYCOSTATIN 04-29 sleep apnea topically Anderso ) 100,000 00:00: to n units/g 00 affected powder area(s) 3 (three) times a day. enoxaparin 2021- Yes Obstructive 130mg Inject MD (LOVENOX) 04-29 sleep apnea 0.86 mL Anderso 150 mg/mL 00:00: 05:59 (130 mg) n prefilled 00 :00 under the syringe skin every 12 (twelve) hours for 31 doses. ciprofloxac 2021- No Obstructive 750mg Take 1 MD in HCl 04-29 sleep apnea tablet And erso (CIPRO) 750 00:00: 05:59 (750 mg) n mg tablet 00 :00 by mouth every 12 (twelve) hours for 9 days. HYDROcodone 2020-04- No 1{tbl} Take 1 M D -acetaminop 05-31 tablet by An derjerry chaney (NORCO) 00:00: 00:00 mouth n 7.5 mg-325 00 :00 every 6 mg per (six) tablet hours as needed for moderate pain. morphine 2020-04- No 1{tbl} Take 1 MD (MS CONTIN) 05-31 tablet by An derso 60 mg 12 hr 00:00: 00:00 mouth n tablet 00 :00 twice daily. metFORMIN 2020-04 Yes 1{tbl} Take 1 MD (GLUCOPHAGE 1 tablet by And erso ) 500 mg 00:00: mouth n tablet 00 twice daily. Vital Signs Vital Name Observation Time Observation Value Comments Source Systolic blood pressure 2021-04-29 21:39:27 135 mm[Hg] MD Cortez Diastolic blood pressure 2021-04-29 21:39:27 77 mm[Hg] MD Cortez Heart rate 2021-04-29 21:39:27 82 /min MD Randy lua Body temperature 2021-04-29 21:39:27 36.78 Arleth MD Laurie summers Respiratory rate 2021-04-29 21:39:27 18 /min MD Laurie summers Oxygen saturation in 2021-04-29 21:39:27 95 /min MD Cortez Arterial blood by Pulse oximetry Body weight 2021-04-29 11:52:00 131.1 kg MD Randy lua BMI 2021-04-29 11:52:00 43.80 kg/m2 MD Randy lua Body height 2021-04-24 00:02:00 173 cm MD Randy lua Procedures Procedure Date / Time Performing Clinician Source Performed COMPLETE BLOOD COUNT W/ 2021-04-29 12:48:00 Tiesha Harding MD DIFFERENTIAL BASIC METABOLIC PANEL, 2021-04-29 12:48:00 Tiesha Harding MD CALCIUM TOTAL MAGNESIUM LEVEL 2021-04-29 12:48:00 Tiesha Harding MDo n PHOSPHORUS LEVEL 2021-04-29 12:48:00 Tiesha Harding MD on Results CBC 2021-04-29 12:48:00 Juanita Shaw MD MANUAL DIFFERENTIAL 2021-04-29 12:48:00 Juanita Shaw MD GLUCOSE LEVEL 2021-04-29 12:48:00 Juanita Shaw MD BLOOD UREA NITROGEN 2021-04-29 12:48:00 Juanita Shaw MD Randy son ELECTROLYTE PANEL 2021-04-29 12:48:00 Juanita Shaw MD SERUM CREATININE 2021-04-29 12:48:00 Juanita Shaw MD .GLOMERULAR FILTRATION 2021-04-29 12:48:00 Juanita Shaw MD RATE CALCIUM LEVEL TOTAL 2021-04-29 12:48:00 Juanita Shaw MD Randy son COMPLETE BLOOD COUNT W/ 2021-04-28 08:36:00 Tiesha Harding MD DIFFERENTIAL Results CBC 2021-04-28 08:36:00 Juanita Shaw MD MANUAL DIFFERENTIAL 2021-04-28 08:36:00 Juanita Shaw MD Randy son BASIC METABOLIC PANEL, 2021-04-28 08:30:00 Tiesha Harding MD CALCIUM TOTAL MAGNESIUM LEVEL 2021-04-28 08:30:00 Tiesha Harding MD PHOSPHORUS LEVEL 2021-04-28 08:30:00 Tiesha Harding MD on GLUCOSE LEVEL 2021-04-28 08:30:00 Juanita Shaw MD BLOOD UREA NITROGEN 2021-04-28 08:30:00 Juanita Shaw MD Randy son ELECTROLYTE PANEL 2021-04-28 08:30:00 Juanita Shaw MD SERUM CREATININE 2021-04-28 08:30:00 Juanita Shaw MD .GLOMERULAR FILTRATION 2021-04-28 08:30:00 Juanita Shaw MD RATE CALCIUM LEVEL TOTAL 2021-04-28 08:30:00 Juanita Shaw MD Randylouie lua US LEG VENOUS DOPPLER 2021-04-27 14:47:04 Dat Wiggins MD And [place] BILATERAL COMPLETE BLOOD COUNT W/ 2021-04-27 11:25:00 Tiesha Harding MD DIFFERENTIAL BASIC METABOLIC PANEL, 2021-04-27 11:25:00 Tiesha Harding MD CALCIUM TOTAL MAGNESIUM LEVEL 2021-04-27 11:25:00 Tiesha Harding MD PHOSPHORUS LEVEL 2021-04-27 11:25:00 Tiesha Harding MD on Results CBC 2021-04-27 11:25:00 Juanita Shaw MD MANUAL DIFFERENTIAL 2021-04-27 11:25:00 Juanita Shaw MD Randy son GLUCOSE LEVEL 2021-04-27 11:25:00 Juanita Shaw MD BLOOD UREA NITROGEN 2021-04-27 11:25:00 Juanita Shaw MD Randy son ELECTROLYTE PANEL 2021-04-27 11:25:00 Juanita Shaw MD SERUM CREATININE 2021-04-27 11:25:00 Juanita Shaw MD .GLOMERULAR FILTRATION 2021-04-27 11:25:00 Juanita Shaw MD RATE CALCIUM LEVEL TOTAL 2021-04-27 11:25:00 Juanita Shaw MD Randy son MRI PELVIS W WO CONTRAST 2021-04-27 01:50:59 Dat Wiggins MD POC GLUCOSE SCREEN 2021-04-26 21:20:00 Dat Wiggins MD on POC GLUCOSE SCREEN 2021-04-26 17:36:00 Dat Wiggins MD on PATHOLOGY BIOPSY 2021-04-26 17:30:00 Maria E Valdez MD INTERPRETATION POC GLUCOSE SCREEN 2021-04-26 16:36:00 Dat Wiggins MD on DIAGNOSTIC UPPER 2021-04-26 16:36:00 Maria E Valdez MD GASTROINTESTINAL ENDOSCOPY DIAGNOSTIC FLEXIBLE 2021-04-26 16:36:00 Maria E Valdez MD COLONOSCOPY PROXIMAL TO SPLENIC FLEXURE POC GLUCOSE SCREEN 2021-04-26 14:14:00 Dat Wiggins MD on COMPLETE BLOOD COUNT W/ 2021-04-26 09:20:00 Tiesha Harding MD DIFFERENTIAL BASIC METABOLIC PANEL, 2021-04-26 09:20:00 Tiesha Harding MD CALCIUM TOTAL MAGNESIUM LEVEL 2021-04-26 09:20:00 Tiesha Harding MD PHOSPHORUS LEVEL 2021-04-26 09:20:00 Tiesha Harding MD on Results CBC 2021-04-26 09:20:00 Juanita Shaw MD MANUAL DIFFERENTIAL 2021-04-26 09:20:00 Juanita Shaw MD Randy son GLUCOSE LEVEL 2021-04-26 09:20:00 Juanita Shaw MD BLOOD UREA NITROGEN 2021-04-26 09:20:00 Juanita Shaw MD Randy son ELECTROLYTE PANEL 2021-04-26 09:20:00 Juanita Shaw MD SERUM CREATININE 2021-04-26 09:20:00 Juanita Shaw MD .GLOMERULAR FILTRATION 2021-04-26 09:20:00 Juanita Shaw MD derson RATE CALCIUM LEVEL TOTAL 2021-04-26 09:20:00 Juanita Shaw MD Randy son THYROID STIMULATING 2021-04-26 09:20:00 Juanita Shaw MD Randy son HORMONE POC GLUCOSE SCREEN 2021-04-26 05:03:00 Dat Wiggins MD on POC GLUCOSE SCREEN 2021-04-25 23:32:00 Dat Wiggins MD on POC GLUCOSE SCREEN 2021-04-25 20:59:00 Dat Wiggins MD on CT CHEST PULMONARY 2021-04-25 17:38:00 Dat Wiggins MD on EMBOLISM W CONTRAST POC GLUCOSE SCREEN 2021-04-25 16:19:00 Dat Wiggins MD on COMPLETE BLOOD COUNT W/ 2021-04-25 09:19:00 Tiesha Harding MD DIFFERENTIAL BASIC METABOLIC PANEL, 2021-04-25 09:19:00 Tiesha Harding MD CALCIUM TOTAL MAGNESIUM LEVEL 2021-04-25 09:19:00 Tiesha Harding MD PHOSPHORUS LEVEL 2021-04-25 09:19:00 Tiesha Harding MD on Results CBC 2021-04-25 09:19:00 Juanita Shaw MD MANUAL DIFFERENTIAL 2021-04-25 09:19:00 Juanita Shaw MD Randy son GLUCOSE LEVEL 2021-04-25 09:19:00 Juanita Shaw MD BLOOD UREA NITROGEN 2021-04-25 09:19:00 Juanita Shaw MD ELECTROLYTE PANEL 2021-04-25 09:19:00 Juanita Shaw MD SERUM CREATININE 2021-04-25 09:19:00 Juanita Shaw MD .GLOMERULAR FILTRATION 2021-04-25 09:19:00 Juanita Shaw MD RATE CALCIUM LEVEL TOTAL 2021-04-25 09:19:00 Juanita Shaw MD POC GLUCOSE SCREEN 2021-04-25 05:28:00 Dat Wiggins MD on TRANSFUSE RED BLOOD CELLS 2021-04-25 04:19:00 Viviana Stauffer MD POC GLUCOSE SCREEN 2021-04-25 02:32:00 Dat Wiggins MD on TRANSFUSE RED BLOOD CELLS 2021-04-24 21:22:00 Viviana Stauffer MD CALCIUM IONIZED, VENOUS 2021-04-24 18:40:00 Dat Wiggins MD PTH INTACT 2021-04-24 18:40:00 Dat Wiggins MD VITAMIN D 25 HYDROXY LEVEL 2021-04-24 18:40:00 Dat Wiggins HIV-1/2 ANTIGEN AND 2021-04-24 18:40:00 Viviana Stauffer MD ANTIBODIES, FOURTH GENERATION HEPATITIS C VIRUS ANTIBODY 2021-04-24 18:40:00 Viviana Stauffer MD TMP HIV 1/2 AG&AB PATH 2021-04-24 18:40:00 Viviana Stauffer INTERP TMP HCVAB INTERP 2021-04-24 18:40:00 Viviana Stauffer MD POC GLUCOSE SCREEN 2021-04-24 18:19:00 Dat Wiggins MD on PREPARE RBC 2021-04-24 17:11:00 Viviana Stauffer MD PRBC PRODUCT READY FOR 2021-04-24 17:11:00 Dat Wiggins MD HEAD OF SCIENCE POC GLUCOSE SCREEN 2021-04-24 14:55:00 Dat Wiggins MD on CT ABDOMEN PELVIS W WO 2021-04-24 14:29:00 Tiesha Harding MD CONTRAST COMPLETE BLOOD COUNT W/ 2021-04-24 08:40:00 Tiesha Harding MD DIFFERENTIAL BASIC METABOLIC PANEL, 2021-04-24 08:40:00 Tiesha Harding MD CALCIUM TOTAL MAGNESIUM LEVEL 2021-04-24 08:40:00 Tiesha Harding MD PHOSPHORUS LEVEL 2021-04-24 08:40:00 Tiesha Harding MD on Results CBC 2021-04-24 08:40:00 Juanita Shaw MD MANUAL DIFFERENTIAL 2021-04-24 08:40:00 Juanita Shaw MD son GLUCOSE LEVEL 2021-04-24 08:40:00 Juanita Shaw MD BLOOD UREA NITROGEN 2021-04-24 08:40:00 Juanita Shaw MD Randy son ELECTROLYTE PANEL 2021-04-24 08:40:00 Juanita Shaw MD SERUM CREATININE 2021-04-24 08:40:00 Juanita Shaw MD .GLOMERULAR FILTRATION 2021-04-24 08:40:00 Juanita Shaw MD derson RATE CALCIUM LEVEL TOTAL 2021-04-24 08:40:00 Juanita Shaw MD son URINE CULTURE 2021-04-24 04:38:00 Tiesha Harding MD POC GLUCOSE SCREEN 2021-04-24 04:19:00 Juanita Shaw MD on WOUND CULTURE W/ GRAM 2021-04-24 04:01:00 Tiesha Harding MD nderson STAIN XR CHEST 1 VW 2021-04-24 02:40:06 Tiesha Harding MD XR HIP 2 OR 3 VW W PELVIS 2021-04-24 02:39:23 Tiesha Harding MD LEFT BLOODCULTURE 2021-04-24 02:15:00 Tiesha Harding MD IRON LEVEL 2021-04-24 02:15:00 Jayne Taylor MD Vee TRANSFERRIN 2021-04-24 02:15:00 Jayne Taylor MD Vee FERRITIN LVL 2021-04-24 02:15:00 Tiesha Harding MD HEMOGLOBIN A1C 2021-04-24 02:15:00 Tiesha Harding MD TYPE AND SCREEN 2021-04-24 02:15:00 Tiesha Harding MD ABORH 2021-04-24 02:15:00 Juanita Shaw MD ANTIBODY SCREEN 2021-04-24 02:15:00 Juanita Shaw MD CLOT EXPIRATION DATE 2021-04-24 02:15:00 Juanita Shawe rson TMP INTERPRETATION 2021-04-24 02:15:00 Juanita Shaw MD on ANTIBODY SCREEN NEGATIVE TMP CROSSMATCH 2021-04-24 02:15:00 Juanita Shaw MD INTERPRETATION CONFIRM ABORH TYPE 2021-04-24 02:14:00 Juanita Shaw MD on COVID-19 (SARS-COV-2) 2021-04-23 23:23:00 Jayne Taylor MD ASYMPTOMATIC-LT Vee COMPLETE BLOOD COUNT W/ 2021-04-23 22:13:00 Emma Bell MD DIFFERENTIAL COMPREHENSIVE METABOLIC 2021-04-23 22:13:00 Emma Bell MD PANEL MAGNESIUM LEVEL 2021-04-23 22:13:00 Emma Bell MD PHOSPHORUS LEVEL 2021-04-23 22:13:00 Emma Bell MD HIV-1/2 ANTIGEN AND 2021-04-23 22:13:00 Emma Bell MD [place]ie lua ANTIBODIES, FOURTH GENERATION HEPATITIS B CORE ANTIBODY 2021-04-23 22:13:00 Emma Bell MD HEPATITIS C VIRUS ANTIBODY 2021-04-23 22:13:00 Emma Bell HEPATITIS B SURFACE 2021-04-23 22:13:00 Emma Bell MD [place] lua ANTIGEN, SERUM HEPATITIS B SURFACE 2021-04-23 22:13:00 Emma Bell MD [facility] ANTIBODY, SERUM PROTHROMBIN TIME 2021-04-23 22:13:00 Emma Bell MD APTT 2021-04-23 22:13:00 Emma Bell MD URINALYSIS WITH 2021-04-23 22:13:00 Emma Bell MD MICROSCOPIC IF INDICATED Results CBC 2021-04-23 22:13:00 Emma Bell MD MANUAL DIFFERENTIAL 2021-04-23 22:13:00 Emma Bell MD [facility] GLUCOSE LEVEL 2021-04-23 22:13:00 Emma Bell MD BLOOD UREA NITROGEN 2021-04-23 22:13:00 Emma Bell MD [facility] ELECTROLYTE PANEL 2021-04-23 22:13:00 Emma Bell MD [facility] SERUM CREATININE 2021-04-23 22:13:00 Emma Bell MD .GLOMERULAR FILTRATION 2021-04-23 22:13:00 Emma Bell MD RATE CALCIUM LEVEL TOTAL 2021-04-23 22:13:00 Emma Bell MD [facility] ALBUMIN LEVEL 2021-04-23 22:13:00 Emma Bell MD ALKALINE PHOSPHATASE 2021-04-23 22:13:00 Emma Bell MD ALANINE AMINOTRANSFERASE 2021-04-23 22:13:00 Emma Bell MD ASPARTATE AMINOTRANSFERASE 2021-04-23 22:13:00 Emma Bell TOTAL PROTEIN 2021-04-23 22:13:00 Emma Bell MD FRACTIONATED BILIRUBIN 2021-04-23 22:13:00 Emma Bell MD HEPATITIS B CORE TOTAL 2021-04-23 22:13:00 Emma Bell MD ANTIBODY HEPATITIS B SURFACE AG 2021-04-23 22:13:00 Emma Bell MD W/CONFIRM URINALYSIS MICROSCOPIC 2021-04-23 22:13:00 Emma Bell MD TMP HIV 1/2 AG&AB PATH 2021-04-23 22:13:00 Emma Bell MD INTERP PATHOLOGY OUTSIDE 2020-12-27 00:00:00 Deedee Samuels MD INTERPRETATION [id number] 2020-09-04 00:00:00 [facility] [id number] 2020-08-31 00:00:00 [facility] [id number] 2020-08-31 00:00:00 [facility] [id number] 2020-08-30 00:00:00 [facility] Plan of Care Planned Activity Planned Date Details Comments Source Future Scheduled Test 1981 00:00:00 COVID-19 Vaccination MD Cortez (1) [code = COVID-19 Vaccination (1)] Future Appointment 2022-05-03 08:20:00 MD Diego Martinez MD [address] [place] [address] Future Appointment 2022-05-03 08:20:00 MD Diego Martinez MD [address] [place] [address] Procedure 2022-05-03 14:20:00 DIAGNOSTIC FLEXIBLE Rebeca Cortez COLONOSCOPY PROXIMAL TO SPLENIC FLEXURE Encounters Start End Encounter Admission Attending Care Care Encounter Source Date/Time Date/Time Type Type Clinicians Facility Department ID 2021-05-03 Outpatient SORAYA VALDEZ Jah/Hep/Nu [id number] 11:13:34 TYRA bañuelos 2021-05-01 Outpatient KAYLENE, SORAYA LIRA [id number] 13:48:47 PROVIDER Vignesh bañuelos 2021-04-26 Outpatient SORAYA PEREA Jah/Hep/Nu [id number] 15:06:47 CALE bañuelos 2021-02-07 Outpatient [facility] [id number] [place] 12:13:33 [facility] 2020-08-29 [facility] [id number] [facility] 17:04:00 [id number] [facility] 2021-04-23 2021-04-29 Inpatient ER FELICIANO, ED SORAYA [facility] [id number] 15:10:00 16:46:00 Vignesh bañuelos 2021-04-28 2021-04-28 Inpatient EL FELICIANO, ED SORAYA LIRA [id number] 12:24:18 12:44:48 Vignesh bañuelos 2021-04-25 2021-04-25 Inpatient [facility] ED MDA MDA [id number] 04:00:06 04:37:00 Vignesh bañuelos 2021-04-24 2021-04-24 Inpatient [facility] ED MDA MDA [id number] 17:02:19 17:29:48 Vignesh bañuelos 2021-04-24 2021-04-24 Inpatient [facility] ED MDA MDA [id number] 15:59:11 16:20:43 Vignesh bañuelos 2020-08-31 2020-08-31 Outpatient Rostata, [facility] [id number] [facility] 08:30:00 08:30:00 Cb [id number] [facility] 2019-07-15 2019-07-15 [facility] [id number] [place] 12:28:00 13:10:00 [facility] Results Test Description Test Time Test Comments Results Result Comments Source Pathology Outside Interpretation 2021-05-04 17:50:04 Test Item Value Reference Range Interpretation Comme nts Materials j4vtmHJgJILstBDsDqObSVCeQWHvg8tyRPLxtSMnLnPxEjQhKtBoKqmgyAVxTYPpYaQgm5rcx569vQEl l6ayNZYcPvH3tHJtYSGjxKTpU282VDRdBXvuo6gki0XrQXYpcUWtb5I6LVFJpahaqUf3tCibY24fd1R7 CbmbX9luEHDiWMVjV5FzSE3eIFIqYph3KTL3CRS1GWX Received zUVCjG8KdHQ4oIDPhdHEcTHd5j1mceMyhVECkJNI1d2niHGwbppBbES5nsl2lmAt0p7svrtClDZQdSGG hvNAQSNJkL9DwyYwnMu7nfFo5yUodImrcJAA0Mhe2DY7jti64gwv7sKkhORUipuhuWdQ6IUseCGQkzww zNOf7TOxhCJGghRahTBvrLKFypwdmFNmcKJTygKU7GV (test code JweGUbO4ZoXEFiEOdlSJWtpjj3OnSaEm3ejTQegZtxQMzos2kuv2ntcOYhNgy2ZGUuNaLoJixiTTnep1 Ehv9wwDQCxza5iYLX5iZVpwMmbg1Y4vJYeERFbqEBtlyMoHBWffr13sRSjuELcuARwqk0pwkPloKBtqU QuVLX9uBVquaCdKNUwuMJrVTXyES0caOIqDFDudU8bf = 9973) spnFWVsXwQkwypgNABrtThtkwRvMu0thKumAHN5HYccS5qwtB6pWyP6HYvhV5uvqJ7oPPh8SPgepIO6E BFdbV4bGS4ktyybb1pjFrWsEH9vhzjga0qcUcVtDT7tkln4c9pvYOJ9IHhrHZIjDsX7dbH4KFPojKSbY ZZllLicQUtyo442ZQR3BjPyJCSpx9EzE8PduLfpO15t nGtiD83pASAprZkewS8axUfzbN3aKdVqSpWhBUk0om83EFc3qgynxEviXDr4rtIhOTLwKHX2GMEeiFHb JFOnV0x1dsPwQCQyIOP1YXQueTWoSWEtS2f0bzCwPGD1NVs3czKaUBCwaSAxxHShRPUuOxLtoYXtVSHx HfDnLFVafUNdkXIfkFPtmR6hsRmzTRVwhMQeiJ1hDYY 1QTNxiyqcPzIjhOIhFYTciGPird47ZQJoudVauKNbhVfceWCbQIB4EGMpWQEbIGOsLDE3OVAvVkClugH hSOystRNqJPEbRFUpBDXoCZVqTFA2CFFcNcNnkzSsIByykYHxLJJiQCVsAFPpBDReMUD5WAFrSjCmjyF iSHhlnWYdBLZzMRAvXOCgQWRbNJI9SCXtJzLjnxUhJM ejtWEgZOVfNOtvkYUgZTZ1Y9vzsMKmQIWzLUilpOBrRZEpI0xvkOEvQUmoCDEyhWQgHlugWNCveYKoIx YiU6gpXIEyGmTfE4AssWe2SKToKCEgggCtbOCgkOfgvUCgICM9JREdGNJnYIJcSOO9TFEvHnAeaaEfKG yzwSThMCObHPBvMKFeSLAfPYD1NAWwGrNdlnEzTSyav SFtVDAuFIMgMBSuHZUhSUF1UXHxQsTnoxDaZBvxjINiPZErJBHzJAWqZEJjJJM7YPQyTuTqzjFoRAvkt NVsWFRlCUjdoLYiEDT3I4oakPKsYKVnJFlszPNgHUNpS5thtMHuWTyuCOUgrCYnSmhfOVOfbMTnBcHoM 6quWEIbEvNuU6QneAg6EhGuWRIfsrUjbETwlPhjlHCf VSY3ZCBnELAjIPHoTZS1GDScYgGmrdGoYMxjeQNpEGReEZUkNKWxBBIiZSC7RZAyOxJbwmPuLCkytCTm SQPwNQLvXCUuECVjREB6AFFrWuVdkbGpPKgmkXBpVWAjCUJaRWRnHYZhDAI6GWYoGtTpqhUdFPcxmBSe XRGgHDhyhDDnIUK8O3iawLNgUCOpLWbexCWzHFLpM6p geDRbGXpxFVPvkQOaShkxRDSerRYtEhQjS9uqMGGcKhPlK1OcyMt1HkZyDTBdnwTtwY99Dcqiq6NyWXO mLNT8QJbbWPrvbAhjlSHvmlnbNChviyGdFTydmltoKQKoVOysJ6miKdKfNCFwhNdhHYhdy6XzVRTeZWG nZtxjjgIzHOWpNEEbWGVxbS8nRdwtP8BotC1pEPvqWw fiO4dmTBQix0KdrK0yIMjrsGFqfipbLGmkquAmRXlynijgMPIgJDnbF7wfVgYnCPWlyTxbOYlwe9TqWO IwIIZkLujbsuTuBOs3rlExIQBltLqmzPHdTWfvosGsaAaab0KowxImoLvxXQMzKTs7yiLnqenntBf6zL VpzHnhFKBnfKipuJ4hYfAtFgSiVIpifGHsqeqnIMrep nEkPFuxseisQEQxZNerI1fiEaRrDAKguWarPHtps2MyJIIdGJMgHbifoaNxIXJeW99xjSLdsXTnWALuQ TszVSSnIUYxKzAydISnVrYhZlTcjVmuwWizWXkyYoGgDOVnPJfiI2xtYpQmL0NvGKRnGeWrkEVeV4rfG 8ScwHuoYAMoERpniCGuQKDyxAHrONN5pMWghaRmlGAm hMDqLHPdYFcuHHE0gRRsdkbilARwgcdnKSwxrkY6QKXuRDmqNNEdLOUjMnIggBJpVaUjXmEbvXoxxKwq VQipMiEeXKKjLTfuP2gzUpUqZ3ZoBPGwBdXqQeHYTRNpwGVyJMlgkVNyiyjwMGblzuEiACofnbkrVJHy NPewV0gyRiVfQSRbgNysPPwpb6GiERXpIYXpFozohyY iUBa2gtTeTMNasHxtxI45Avxvqx28FTNtm2clDEFlB5TsyRPcCSTqjJYzWEfpURrwpEIrBDFqVapeNQB rjMGaJPUeLVophBFcPBCcFbZiAOOppDMtSLZpWYQddHFzJGS0D8v5dcBcYPUyXMz1ijJvTWDePiRabPS zLBQ9SWz2UqyzrpC5mCPmG2k7PivwggCnEMcbkMOure 00RMAembEokOAmmDyhdIGdTAI9RPOiFQYuFXHyIAP2LQBcRqXscsOnFAdmkURhMJIyWFXqRBMzFCDtAD N7WMXxJaBvjxNxZXtghUZmDVPlKMMtNIZvTYHwTJR5OMWxJlIaqnDdDIwzfEFiJTJmQPXoRMGhCPPvCI R1FYLyYnRkoxTiNUxkiRRiYEBnSYjerRFtXUD1G4urp LZtNCApTRnlqMFaUXDbK6llfBPoKBjvVPTfoPGeYqniJRAnrIXkEfEuW0tqSNQwEgEvE5GzvQs3QEYtL BVbxqFumORyxVlpqTJsCEB1ROHsGFVoWVCaVOC1WQSjWtKvawDxPXexkIEyBQYzFUOfYOSiPOOoHPA8Z MBlIaFfglAbVBatfGHkGOWoGGMjDIZgDZSkDTB9NPIu UyYueuStRDszeSFeQMCnCWIpCXDtIQWrTYN3HIBlPrEjtdSoAGafxZTbCXDgDDlwzHLaLTW4A1kceBCd LCCuNBcerCKvBIBoF2qczYGqRSzuOOApbMAcMvhrVTNbaMVhCeYhV0sbKPCgPwWzZ0LrzRe2DcOqWPOf feCkzWSzuWamdMPgKOA9KJWaPPXeXWCxCOS4FYQtTfM vqyPwJMczcSRtXHDyFMOmYGPpDXQmIZC5UAUlFuJhpvSaEYgnsDIbOCPpHEQlMNGtHARlABT5TCNkTlX kvyThDItazRVpDKXyDIKcUFPcAHSjGKP3NKNnDfYewwRtZUpxgEPfUJOuIUhioFVeIGM2V1ylmGGbJJL zFXuwsRRjHHXqO1gfaWQzBGmsIIBhaYVqRxshWUNdpF BcOvQxN0xcVAFsLwKiC2AvvSh6VoSqBWDhskMgqA23Qmkrl2BzNYJuPOP9SLarYLhrbZlmvMNzfrdsTK umokR9VRGsUVynQAWqVJJyZxLkySQbZiQhIkKbhKroeDhdSKowCqKzYKObQMjcL7eoYyFrQ1JsWUFnZd UbJU8cRrW1JHEdXmIzTENgDNSLHPVkWYVYT0LWPviaX RWRC2JdkWekaI8wJjCuUfZsIDfrVR8mXLLrP0ivxVZdXWAjNAUqK8lkNkYfsQ9bkKmyOTfqHnJuJwSlC HmpqQMpyOcvRFrvJORtynGqrY38Jxgld0IcFECrQRT7FEkvHOddeZuleEQvcssrSUybboN8CTQlLVleB GYxXGZzMjBcbGFuZzEwMzNcaGljaFxmMVxkYmNoXGYx AIozS8obIkXuQ6OwMEYjCbHtZD2hAcMlBmQanBokfJ2gVwLyXaQaIAxxKP2wRLBaQ4zznLJkXZYiYVSq D6eoGhCnbX3lgMygHLkpWqHfEhHqSKyvuJBdbLoqVTcbATBdvyZtkO17Aildc0WqCUSeGVM7RNwdEBva wUjiqTGfaiyfXAajaeM8JRBzUDlkJTNgNJDrRyTtqXH iHcQvMcFmjRfkjHqbXImtZmAoMUIkYHaeV0maQdNcQ5JlYFZtDdMeQCKvXbNaPmRyLHxljZAwkdkpVRy dlgMhUXtloysoUYGtKTwtB5rsAeNpIFXurGxzYCdnt7WzBBMvHJVeZneashUjAHg8hwGzLTUrlXeqmO9 1Jqbgdb72NEIgzaIfh8ZjFOBeDID2TLrzDUsplRmrqX WsboyuCOuzarI2PLBhUBfaBHCbSWJzGaElgWZaIhGiPiAwaVsjeLekWYzeUoLzLIIyCHilM5icSsQzNc MyMFxwYXJ9 Addendum 2 w9homEIcIOGzzFX2RfTtLBKwb1ucw2DsvVNaaRPcNSahoRGsseHbbm77gYN2eZ30ZX8cBZYnPxA8EUQz drC7Whc7BCZyBBWoeEYvH738e4wet5ktgwEsaRF9eJttXACordomNgJ8TNntFZFtonfaBWd2IKdtCLUy uFE9MUZduBKbQ6WbDAQdIM8wrlx3RMY1XZfaCUWpKcX (test code 8JLUjgOLvQNNwtKwlIXgvy199XHV2EtHrZSWsvmSkiBpemS8rHiJqCJOam8vfCzjqotSDzR1iatBMNRF rnXcihFZlIqnkiNKfkOCauNyzDmHdGMLAPTW0HvN6vWIkOMZpy9PdYLBsYKDiXNBpCXK5NPekSFKtGGL jLVBdNFF1HZepQzjmHl1RQ1OpiXSzLSPAWTwCQoHcj7 = 38) EmyNPvhVWwIZMyavTFGNnyELPhhQVmoDjysgowuRnfrLqtelJejAOodNBjn2VxsZlqfZIrqlGcyD18XG Kup9xtFSKjWR6uBXEsoThdi17fZBAqwvYtFUkYKHJdWHcdcbEjHLGqw5ZsBXBoUKElAAAiAL7vTRLxa1 4eoNJwkxogqQglLGOdt4JzlY7tTOSteQttAGYhC6X5L NYak55zkDvhOIS5Mb0omFHpXWO1iSIlyGOeNokxT1wuTHKlRZIoDUYgc69ubXTaSTogpmIykPHeDBYjN TwvkuXNgKWsMVnWAptmHaG1HCCkIGYtIMugvOs9MQEpj8WcfVbsyIJGtUTcRDfUAy2pbPHuMLSdqbSFh YyieTOowY8fXTOxc9keK6vmDTCsscWhzCV9mI7eIQmh IJ3eF6Dud6JbsW1wEODwbwwdFTPsNUJpzv0= Addendum 1 c2jslDHrEZTdzNY3TmBcLMZwe1rin8IuaMZguDNgKYrqmQJgsyCgvd02wHN1aV95QJ4mLDLsBpT4PQNy pbW4Egk4HOTdYZMbeRVmV942h1ymc0agpzXhxBG9OERhEIZuH9NwQR8dMKNfyOHiN84fvFYlDAA9CMVo GUYmpWUcOAHnYBU8SHEvqCPsF6enPQShHA7wgvojDQf (test code iTYqxSOIepGM9OBIhqOGgQ5CfBGSoXMykTLEubkw8AjVvJg6szGGjmSwqJQrjOQGaXLGcSCavVQYpLcV bMTXvvNRbg80ddXZuLIAazseqbMYvXCZbhEQyBCQbmvBrXU0aKnSxGhVfFS00qURvFDYpMJFbUJCaqA3 fBkdaSMArIRErDHvLQkTzELZwN2FaJJmcZCTOZbbxFX = 37) VWKN2GIorsEKZDKmlmB51jcBDdqNPeVB6wSLX0SnCjVrNkYtBsCWzvXOYheRGnGR6nQMLxSCa0vP3cRT suw9W2SKpab9kssRQcWZKpETTmo2VxLHYeENOwr8QuBVhklWJovVJyiEL2nZ8pCLWmdMVlyfAqnE1tsD VcA6RzQiueNQG5 Diagnosis l9lqyWMkDVVsjCF4WbByODZiv4zoa6UnfSFrgJLbNIkrfREcmcQurp45xSM7uH42MM3vIIVxOhC1IPEv soW4Jjb0JVDxEHKzfCRlL431o1jxt5yklhCslWG4CNVnFKTzF3AaYP8mTRDbdZUtT08swXIpGSJ0MKPv XOZpdUWkWIYuNPY6BBJndQQdC1iiHYLdPG8uyaivKAt (test code gXAfoSYQhmAJ8SWMyzELpH0QbYOAwFBtoKKEuens8XwNmYp3seOMhlDsnNLdyFYPeBMPzNFkbUZYeZcA dP3UwCT72qAOgZAAdFNKjCecZFIX1SCzeHhUNTdgsTEPDDD9GO3LhRDUqLNVGUXBmm6rjXFQ2MNCfy28 cTD6wZlQvYoSoFhbmUBOtF9HrUFOpfdtogNqgETtwzE = 34) 14OcYhZOSilQUuzj7vwlxhb74vjLN8sFRxhURnF58bMCLoyV3no4qoupTwJdhuKKQUZQraxBMtJPzzBv A5DVjhwF35WxKalTmqDcK4GAXDFNnXDCMZWWRUXJCHMN4LLnNJSMgIKOFIYEZYDLMHC8iOUxGPJZGTK7 6mJ1dLQJPhZ3wOEVZzI7XCCIETEUWYL9ZJJBsAUp9KC qgBQmHFCNBYMo3CC79WZCNLUMSMITIZX4RAOXmmNZNQG9ZYLZRBEQKKKCFILGToALSXFIIalWGxQEOgY QTyh68gQE39ERAdhk0= Comment h1ivsMCpWAXfoCU5SlFsUFMzy2vrw1RscLGvlCDjIWpcpTPvlhIhwn24wGN2oD89TK6xIZXzCtW5WQBp eiM8Fdr9PKCsFNPesETxT708d0syl9uarcMmiII9xFsbAAHalnldTqY6GPqyLMBtrtwnHFy5UQxdXJFa gKK7NUNytGTvR1EoJPFdTW4pilb4ACI1GQvwCRAbRxQ (test code 4HPHlrCDwMYFafJukOHphl038OPB6GrPpEFQlpsNpkDqcbH4eBsMpUDJSiQUkR2ZhVYU1LTCsoUMlbzJ lSPVqPGZwmT5rNCMgxTV8q5QibBvauU3ufINkGED7uP9aLCFnf59fG8Drn6JjySqxinTgziPUGL9wSNu sZoLeZx8thHOeDAChuKOzXCCyDITzV6Yjb07bQIMcmU = 9835) 6mb8YjKDWaLLKtFMwsSD99zdJxJtGosPnzjUJuoMEtdXShnD61bfMdsWo9iXBypRFsBZvcbFjgA3vzSL NwS3YllGXxvMXwN1GsNPjlss5kvzazDoKfySYty5Xtxq1qL3LcmqUrqUriv9FqExHIkgTsDXMnD4iyme vsCDxanShfbHFqIHIsbcXGmMxlCBS6aGEfpBH1vJYmi AOkCKLqOFDtDVSiSGHziC6osGr0aCPulTCcmF1sTZshDNKhBLCqpzf7dG3vxUPlysWfBrBUnSBwUNX7g MfrGTA7Ao0njQOqLUPexCDckYRbufYiaBCivOMnQCBvJCCirAJcRF1zuZXyf2TrSaHpryOyehKlEN48R ECfelQkr9YyaNvtWSGqwGeuFSLsMLJks85eTQJndnxq UKOqLWRyJ5ysxfkaAMkeeWImkkJiZ3Z6KYJbQCMpNGJuDFo3oK8bMDvmAyltkCU3HFhvI8s8DVhkSeYm rBUuoX0faCwdxdVqNiZdZZ0xkPnfZFY8DQP9vTH4FOUoqlDWBOVdc2IpwULcYM4eGRXfMAQnIPRhm60s dXCmrrEko94iVW2xVRMpZPmrWMNzdCWbKOZozbVkdPM 3tV7eSLcebUtuV7ymdtvmKXgbs9G7TEgrPX0gUTNqz8ZxdIPjd6Cjl7Biz1WqlMAbxGOcrUTxiJ8shrJ jPJMekRtkwqNmwtV7v45bHoAtp4FqhKawotUpcwZgLTFpm6WjwrqwNJhqCSRmbCXbOJTdwDYcI0LwVXS 8IMVgz5L4PFsdEXQlydXwZXqqT1Cnc7EeGFP6HVDjTU AfSSLaBRMuqSM7zK6py1k8RSRnD9KicKmiH50kGkJzTF7hDK9qEYel YXJ9 Director Of Investigations y9jlqQMbINZilDB2EuDrQIQlq8lud7DebRJoaMVzBZwjkDHysfMlde47nET0bI78MF1pNSAvEaW5VCLi qmN2Vxn9RLLiBPFbhWBpI424k4eiq4cpzcVzzOW4hZcgDLLoxktySsY6UWlzFXAestnePXq2BQpkENUd uPF8PJDkhHClR7OiXDBhTA5ptjc9KOO1NPsjEWNkMyB (s) (test 1WVHjzSJlUDRsrTpfONikb158FSU5GpZaTITrsrBbfFzyhG6eEzXmUZHGT9AuONNYLIcmJunGXQCFKqn mH4UJMCTkrb7= code = 9863) Disclaimer c6xffYIiBHBkbJRjGbYnVRWnVMOev1lzZHSdcEZaMhDsPtJpRuXhXyjuoYXrPJWcQyTzd4ydw757eTQz d9czTTAuFjQ4oSOkSLPpyWHlN466LXCeCDrzy4xvf4BsJXGfcCMgj5D9QDUXmirffIg0wGztT93nx7X9 EbeqJ3peDZLyJDAqM2RxER9dWPYpPns4QUJ0OFO6CBP (test code jABXzI0FaEI5mWDHkoOSoBAd6w5kpuYdrOTSwHPG9s8iaTNtevbOiIO0mcz5vnZa9a8uczxNiWBUqYUH tuKWSEDSyF9JylKnnFh8dbWx1nKenUcgoRLI8Drs9AE6vow04knn4bApxQQKexkicFoX4RDjlZYQjmme jNXs0HHqlCMHzkOB8XSAvwJJeR9BpMKIcSB3mxnj4US = 9844) L9VNptPEDaOrL2QAKxzGGcMZVcvBtqUOgbd890WOF6KnRhFJ4sW0Xpm3L2yI6soIAiEIGmuYRgAaJzOY Mrem5mzLVyDWeuw8RzPLX0jcG8gSTmcJPrLHTbLH96Zccub1QwBdaaDIH0FQUutpXta1Hhz5dgHySnhh HnL9zxF0YzAFDxDYBmEVZqGqOhysKho7Wrt1GpnMZfv Nw3o7ydCFGrZAQirPxse4prKQF0MTExU9K8hPIkr8yvWJxtHANjeZD1fhZ3MRQciELzO8DcgH6nFYUjS I1tjvk9r8bjLKM6CZkjXXKhKsC3myK6STBrdVTvEYHkvZlaSIkwz649WCK0ReAjFWFgw4RwY9IqtGaxD 24dcOsdX38eOZMknMbakX4dlDzycO7mCcTvKcMzRWkb zMsbhECyapniYFkvnqL3KFzkueubOFReBPrxO2ytTbCuBABwzRjgGVxmf2VbXQOtPERbOzrattZ2RBWA q94mOXTjo7BgWGFmbK7qxKPiETasiyMxhNS7POznvnGdFpRkaiKbXQPtnY6fFVBfJK6kAXOoadEqaq7u aiAyJNEeGZHaD2UjoxtzzDuzseClUDMehf4jrwLrAOX 2XSFPPK7FTALqZGDil00dHPLzxIdwrE5mpENptrOaUWBtb1AlhZ5izUIEEVFzF2peLL7kHUuru7CciBK maNDeaDJ9GWFas5LrRvDycwRipSEsgDSwE6AytVpnY4fgAOZoGODaciYblBSxw6XiEZXrmJQ4tZAbGK2 UHfWFk01tAMHaZSKUazVcQFEueOglkEY1ljL5vU6tOe IEPcJytPPjsUGrVkiaQTUkc259lx0sksZ9BNLoOXBlwimmr1TsVATtCKRdeQ68TCFwWTLtlt4wdzvdjW RdrlCzC1Skocu8zF6pGBVgXSbcCWVlTKZcZjQkiDJiBlTkNaHlaUazcKrvIExkTtBrYIWpEBszJ4miAb FcZnMyMlxwYXJ9 MD [facility] [id number] 20:51:57 Test Item Value Reference Range Interpretation Comments Final Report (test No growth code = 8488) Path Review - Immunity and antibiotic Bottle/Isolator use may render culture (test code = 8499) negative. Ongoing infection requires repeat culture. The results have been reviewed and electronically signed by Pathologist:Tash Bui MD, PhD #[id number] MD [facility] [id number] 15:54:43 Test Item Value Reference Range Interpretation Comments Submitted Clinical History h6rqgYOcJKZlt2ezCYE (test code = 73034) mbGFuZzEwMzNcZnRuYm pcdWMxIHtccnRmMVxzc 7XjY4RgWrHuUZiklsXt XGRlZmxhbmcxMDMzXGZ 0bmJqXHVjMVxkZWZmMH uvEa4ekAIiiPisIcZuR UGfu4uaayWDwvmyoBa2 j7lmTDHwEmK8aAWzGPp pD9qwasHpjFMeOUAfLC f8mM13JOPrqW8fkHNdY YgzluCnCfT6FSvdWTVf LqA2AIZzvEAzMQFhU2w yZWQwXGdyZWVuMFxibH ZyVLH8zGnzw5J3lIKmc GVldHtcZjBcZnMyMiBO p5TlLOl0fBhwO5VxAED oBmA7oUXeVMOjJPoeSV FxDAYgmeY7cG58NWedy kO3vEUjz0Jog69ne396 qX1gwMIlPNB9AAUjSAD nnMAiCBFmURD1STTfuL IbR9gbBLWvVO1gyhsiZ YibJMetPZPakJV9IRQo oTLyP4UvQRQdEIytHHH ychs4SpJfEg1spVQueF vtRJxpd5whe4qvpMJwB rn0KJKkIqLyCcopXSzs m1Ksj4crYMGant2fIOX 0aIDknBrtb1M2uXFlMC ZxpKFhypEjQKWfMmT4R SsfGU5aja60ACLzWRZ0 uu0knFGviNhwopXmgII sQPxlT4LcXQFsw809RL HnD7OoVSUay0R1zmBrM eSlGWSrqMW0enS5PKLt CAd6qSDlasU1ucNphDQ kN8zqyO9oBYTxCB8kpb mev9nuOWaaLBbmRMIft PB4gwS4OTGehTXwV2Zh oP6iMTFmQUtgJEIlbye 0VeYrZb2rqQOblTmjZL xzYmtwYWdlXHBnbmNvb nRccGduZGVjXHBsYWlu XHBsYWluXGYwXGZzMjR yzWhwpNdewF7cGeAkGj MzHHmxFT2yRTXpW1krq EWeSWDoMHRcX7bcDmCi yD1ysNfjOFyppxVzIAS sTP2vYIZbzNSqoW0lE4 ioa05mPzIhnP1dTGGqx 7QdQIdRKBKdYH0kxEsr tL5uQoXlXlMjFlciMT4 cAMQuJ0ugyLMvQHGpNA IhA6ebFlRrwJ9gzJkwT EvuflSiYWKuqf97 Diagnosis (test code = 34) g6gnwMXnEJFbeCR2EjU mPIMqi3lau2AwlLDzzO CiTNibiUWcwiPxfu80v UH9mG90TS4aIAXsDyS9 COGuyeA7Vha6HSLsTRZ giVLuO398u1pxa5axja SkaAE2dKtsHEYqlvidS wX8DLozTPMdgdfbYXg4 PMcvDVEpwAU6FTRqdHD sI3EiERUlYX8ggwo8FS X3YFyrUCXsZkY1BUOfx QKjWIRcsXczUHfjd074 IUY7CbCgTRBovoKcgZy vrJ1wWaIhSXDRUcWaZ5 0qc44uSNEuO1IbAELqa VsdKXEouF6qn4c0CIls ofRaULz7BRZnYZOquKt eqqHeBUMxv61aGBenhq DyAd5yFPY2j1HhdlByB QCxeU2eQO17lOUjjC4d w9m9EMFrrzRuMLTfOzN DkXKiC2LuLHWpeZOxlN irdMYao4u8fERjoYLmz oplDNAklDLlJvXiyZ3u ZR9vdWjxLFwpfgHyCl3 iBMT0f80tT1ixRYNvcF R7wZzgVmitnYT4Ypvbv N9cLLApdUBoPDDznZWo kFZ3oCGcOI23Q90aEYH 7aJUtXNAuKZN5aGKcGK tel8Dns7NynMr3VJxjh dCrZSb7QZOzTp4cyS01 YNY1rN8zvXLeWCXnrMy or1qdEK0fFGpuPKY0kR 8fqTVaPDCMMWE8WLgzC VbbvI6uZHFkEWHEhN8h FMApAKFvLUL5plamVCB iQDorGYNpd9BizGjkyB luZSAgXHRhYiBPeHlud TpcRC91D63nJMH7rMHd FY6sqPPsO3vky17kUoC hpfTbuPf7XDSjWDO7bc e2zGAutQieOVNgBWRzJ vGNueBwmxZgr3EsjwSe EX9lrRMduNArfMYkr3D gWH7ylQxtu0XnXLtBIc Ctd0VxyN1hWSicsfCuK S9bAOCbyH9vJJUxv2Mi yzRypivwH36an41ddL7 svDDtFASow5HklGuzaJ luZSAgXHRhYiBMaXBvb WFccGFyfQ== Gross Description (test u1vlzPGqCUPmkTQQZIi code = [id number]) wMFxhbnNpXHNwbHRwZ3 NfzehoMDiuPE6rMX8fn GpwaFQbqFRdUU4PYWXg ZmYxXHBhcGVydzEyMjQ vWRVwwOOqxMJ9RHRgRO 1hcmdsMTgwMFxtYXJnc mB0TORjnQLdU9EgFTYe AQ7xryziHUQ9ZTnqwX9 khpAHWqcbWw6ppITjmF tcZjFcZmNoYXJzZXQwX TWueVgtSMUdGVp3qU4P MwrcN76kk3G7Vze2OZG yBLUmP7XoGO9wOEOhyX NuE42RAlckEVK4ARONV yplNQWgCT3Jo8mmBCYz bTEiCSN1GXuavJBqCAJ rCNSaLJm7HVOkNUitgM BbCV9voJwhEdzooCsbt 2VjdCBcXGlkIDUxMDAy OLajEDXeLL8XIrHnNQI zELaoSHHbEYz2OYe1HB 5TZvKsHVVhRIf1SzN8H OIbQTz8DIdeGH3ZDKei PuK6SYJ4GGH7LZBgJqV cXHQgMiBcXGYgQXJpYW wgXFxmcyAxMCBcXGZiI EleKyxnYJvpU38phRkc eU5oPazgbbGkSOS3IJR hciANClxwbGFpblxlcG ljTmVzdERvYzEgDQpcb HRycGFyXGxpbjBccmlu MCANClxsdHJjaFxiXGN oNGwvsjPzFZXroZ6mNU WpAJLotCDql4c4cLxpY dLvB0KvTKUbIZSrMvSx eJKpVUWip6B4SERapkL nbWVudHMsIDAuMiBjbS YmskWyWY90ISYcKDUur nRpcmVseSBzdWJtaXR0 NYNkxT3fDRDiIFMkmTH ydTEcyAwhOeoniHF0MK giBcddoN7llHATRXSRG zuSFtmpbcOqNU7WPH1C CmLGFD03EbFsGDJ4MIf QA0VEhRE4Mok0NXh5mV tcZmxkcnNsdCBcJzFDf Y8HFSgqZafawCB9BZyh XtgdhC2sgSVCWKOFRtp JOgdrqhLlRB3OPZ4UQX 3YiKKaCKD3xKR9KVCTJ zbtcOF9zAU6kJ46GNHz FHYhbAItAKszS967LWS lBLtyZZv9duDeJUZyAg YkWFmyRAYhI73oc1RMd 9XfGIQrs8zhnCuux0Bl dGVuZFxwYXJccGFyZFx hmO3yVjKtb0rqmBe6OQ njlyC6GFAixe4nhTime N8rVKg6WVycAMSjS2Zh P3ShNJnyMCD8WWTiMxI cXGRiICBPVlIgIiBDMz U1MIM8QnA9UBg2NYHHG cCnMpWhBNM1QVN3HHkj VSl8VVe8DGeCAdT1PUC lHGX5XrZkMOI9HgEeHS w4RIAbAJpvSUFifXIqJ FxcZnMgMTAgXFxmYiBc VGKgPAlnoxO1PRIeHUt uXGJcZnMyMCBCOlxwYX KgNNcmeVhswN3tAUAgX 80gg0UXs9TfYN1ZTDu2 xuSlajvlxJ0qGELvuqA aMIlnyTFtU0vmUuxnRq MuApZiSUHExD5aRM61u GysUYSoKAIhjZ79MTSk XGNmMCAgTXVsdGlwbGU uu87shUX5TR3jrFwja5 QdBXGrPCbqMJ06epgmT H1zFYPfMT2cUH32DDRv LCBlbnRpcmVseSBzdWJ yjLT2PYYjsE5wZkNvQS BccHJvdGVjdHtcZmllb MY2IDhrOpvleY4tyBFP WVBFUkxJTksgbmFtZT1 RHB1FBoTRCL37OxOpCV H6CKhKB6WEnWR6Orl8V Mj1kKqaZmchixLqyGZy FkCIfA2DZMcjGiccyXH 2EOgzUorflZ9euHHPTT HMMczRNtrxyhDqUX3GP B7XDT5TmIAkGIQ9lNT8 ENXWGrasjWL5zBL1gK1 5VWUtDTBbaLYzPSzpR5 50ETRqRCvuIZm1xrRhS DZrTeVlKMmeIXPfT93d j5KIn4QtKOPin2tibFb fe8RsnXZcDMorESCdiD AxEJedvY4yIfHpi1lqd Dp2TVtzdmX5ZCOery4l kHwnyS9wUVz7ZWbbEWP gZ5CiB6WoOQmeONN7LN AwMiBcXGRiICBPVlIgI rYJVuI9YNH7HgO3HUn8 GBXFTqYaYtDvAUR0NGO 3NfMzXJy1FOs8UMlQDw R4ETIpKAK3WGwwTYG1U gWgLUz2PUTuEQnlAEXy aWFsIFxcZnMgMTAgXFx nZbNmSHJnDAiuxqQ5BE BsYWluXGJcZnMyMCBDO yhgVJWdGZofqGweoW4v MQAwW91mw8THi3ZnXR9 IXLv9wjEtupbfnW0pGO YfsiYsRVwpgBLrA9czI waxWbUdEzAyCTNWhU8r CTMwNGHnwwOgpX28PJJ wXGNmMCAgTXVsdGlwbG Rni38zlWY2SR7mvOuxu 6UrFTFhWUexFY03pkhp HC9kHJKsNM3hXI71RRX tLCBlbnRpcmVseSBzdW WdiWZ6PMWcpT8rDsFdE CBccHJvdGVjdHtcZmll qTY9AXalStrrqL9ljGB IWVBFUkxJTksgbmFtZT 8GWY0GQfQFTP94JhMlF MY4EDxGV3XAmCI2Oex5 EVi3fIvgFpojztNoqCW eKeNRzT0RWEldKjywfU U0OTjvUtpmlL6aiQLKH RMRNesLSffgbmByYF6Y QF5VRA1XbJGhOBN3zVC 0GENZGoldpFF1wTE8uI 17XGZsZHJzbHQgXCcxQ 707UCZqZZkiBCw6huEv JBOqItKdIMfgWGCtS43 jn5ISj4XhAPMqv9ybzU nkw7WgyXZhAGhwUOIrv SPsECmpuF4eBxXqa8xn gXd5TAdwmuF6AWOjak9 keJtcvV1qDWt4UQpwFF IxX9MiQ8AjOJllWST6A TAwMiBcXGRiICBPVlIg GaRFGfY3SPN0HnG2TAk 4PGAHCgIcTtUzSGU4IH O8UbSiFNj3HPt4SPzPW bL4AZBySKl1DCPdXTW7 ZoNaSYg9KOSyTWzhKNS yaWFsIFxcZnMgMTAgXF qtNiKjDRBmKSkeqgI3Y HBsYWluXGJcZnMyMCBE OlxwYXIgDQpccGxhaW5 vYRMaZ09ih6MCa6SfGR 6RYBr7fkSsvvxhdU5pL NZjpvIdIHjvaGFtB4jq YlxjZjFcZnMyMCBTdG9 oVDLsLTFrAEV0vkyvDN FhKHe5AHWqGENmPODnT EOjcXayiBQst04gcKY3 JH1qxClum6QeVZTiGXa eEH07clgnTF0kETSjTI 5pAV9tFEBhKAKhpbMot nYiwMUjmVMwbYM1HFVw tR1fSVAzWUJmmCSwfCW eiNolMkecyLD5LUgoSn fmbX0vsWSZQIUUVpaOW kfrdjLfJT4KSQ0FKdBP QN90MsZbVSQ1FAqZQ2E EfKV8Qor2CGu4kTypXg dcbqKrxRTsXoRSeY6FL UrgVulpuMM0NTezZabq oE6uuSMTQSHWScbOYuo fmeDhES9BXD7VMB4WaF JrNHG4gMS3EWFJYhsxk JE3pZL0fU62AODoFQKr oIOxQLqgK512TFGuIEm zJLi3ypIaOHNyXaPfQU saJVKyU14ai7LNw8JlO MKyq6wqwCyzf1DvaNUt ZFxwYXJccGFyZFxzbC0 hGsLww9tvzWm1RBdhkc D9BBGrio6weUdhyW2uF Ka9UCscCEIcU0ArC3Kd MBhuPRF7WGUmEuBwHVF lKVPHBiObRgSEAqV2LK D4LjZ6IQe7JYXZVkYdL qJkGIV0EPH5PyVaWVx2 GJu4UWaUQdG2GBRxCIx kPBUwLFC1SnVyBTy0XI IgXFxmIEFyaWFsIFxcZ nMgMTAgXFxmYiBcXGZs CKlqcpR6KURrXDneJKY cZnMyMCBFOlxwYXIgDQ orvThmqY1rVGSrO10tl 0TXp0DzPP7LUMv0wyFt zdszbX8qSSIqleCiXHe tkGOdL9jvUfyhIiZrLq LrDKHEn4bonzqkYKYaX N1kzR9nIZEfpZ4gKUMg vTGgGTWjLXMrgZyms23 iIAfdAzAzT6AqFJLcQT BzZPLqx5DlqIxlvC8qE WQgbGlnaHQgdGFuIHRp a2O4PDAyklByvNCxdES sIDAuMSBjbSBhbmQgMC 5eHZVuiYgxAV28eNToz Smyn6NufYy8vTYuKVjf GLBmFvHaWCHfo3BuX2A 2CSDhWNvwx6jkOYYkQG ewa8HcDJpUXGQBVV6AN T2qqSD1PIoSY5MRZ3rW pVGgFSQ7bDP9THAIUsr acYJ8uQI7gF57YKZqZQ YroYOmJLzqC347KIT2T RGfYGhts7tjCBXfWOhp i6UvZMqWMPVMMZ7EDB8 wfSA7BJsDZ2EZFBxxNH ZdSkngmQHOLZR1CIslp UspvLv7c1zjaVKws8h6 TKgzBFO3lTtqoTMekeu lqEAaxKzcoiVpVH5ZDR XbaFBFZLN0DZ6jSXg1B ImuTMSgK9QkO0QxvnHz lXOeOXOddwIka0pwWZM 1XHNsbXVsdDBcZnMxNl pnIVE0NMZyVWdgAT0XZ YUyLAU5CQeiwJ77rLEu MA3MBGCaNQlwMJQaTHM djeZ4CLEjeMAfYQX8XA 2ceLqmwRTutioiyhM5L A0KfQ== Disclaimer (test code = x4ctjJJaGILmnADkKjO 9844) iTYIoHHKgd0vaPPWtmL FuZzEwMzNcZnRuYmpcd RYmDHLyAjOow3rlq877 pBVik6amLYQnBdO1cLW zINFajCAqB455TDLwQD gee0dvh7RoVSJnmGIwt 0L9VBHBpnqwzHf7sEiy Y21ry1R9EybhT9prAUY fBCIbO4TfVI1zNLPhGl r7HVS4NCM1TGUpDJGbK 5EgOU1aBRKjiWIlSLq6 n6rxnDgdKTVeICS1k7a oGFqwxuVeHT7gkt2yrC h6i0bvjiEbBUXjIKUsy WEIKOEwM0KhvHmaRv5r vGj6jWypVwdeMMX7Qbn 6SU7akj97nmo0pLdtQP XobbceCzW2VJdkZHGqd ajuTNt4WRyyMNKlbDO4 ITQegTGbG7XlFCZrHJ1 agpc8YFH4JIbxMORcOf A0YTFjiWYaDRIbgAfqD Tsrt351JCC3CiRzEH7p Z1Vhl7M8sA7saTUmHLN hnTMjLwWxXOEnlg9fyH EkZMaht8RvJRL8nwS8y HFawALuHVJnRX79Hrab a5OtXopjLFB5WKPjwmI ey8Jvm5aaUuSeajHlU2 aoE8ViSLXgDCZbRJVdR dFpgqYkd1Ael7UdmNTb tQg5s4ssTEWjWIEogCj zf2cnBXN0FFTfO5Y0pU Fna1jgGMzjQKEozQM4n eE9GTAegLKpE4NxjC9t MKRuNG4niuz4w6ltXRS 1RNcuMRHkKfC2hkS2UR BcaGVhZGVyeTcyMFxmb 372VIE3VcVzBBAaf0Lg M9JuaAeoW76rbEnhB12 vTBJzkGitrY0maWhzwE 5cZjBcZnMyNFxxbFxwb CXxsszeXTucqlR7JWzc todjMSMaBCfdK2eyXhH mGCOhyXwzFVldj2YoXF CtJMMkBmxdroV2OSIPx 82fBYZud5YfABLpwC1f aYOqLEswsjPynRC9YWl hdmUgYmVlbiBkZXZlbG 2jJXJpIE1fWOQxavShx k8myqSlBUVxAGWgG2Uv cmlzdGljcyBkZXRlcm1 kfsSnDMK6IPPGUG1OYF HbAQHvs64aHRHoaXazs L3jtREfscGtCASdd3Bb nE0jbVEYMQXaR2nsBO6 bAGipj2OtwJJwgIIapW G6PPRds0GfDvOgurIqg DOidTWrV3PoiLqxT3qz SKByUSJpsdBugZKlo3K yLNClrXE6mAFcDU1EFv IGr41kLTYdZQDZnzXzO YTyzUyqrHX5teY1uY5y LiBJZiBhcHBsaWNhYmx aZVNsk225hr6rinL9FC FbHHGnrlwir0JiCKXmU QJejB70XVSqQSXkiv6o bbzgkBCzvwNeT8Obvzb 8fQ6nBUXqAHpeRGCkFQ ZzMjJcbGFuZzEwMzNca GljaFxmMVxkYmNoXGYx BAfoJ6aeQtVvWuLcFnj wYXJ9 MD CortezO[id number] 13:57:56 Test Item Value Reference Range Interpretation Comments Neutrophil % (test code = 64.0 % 42.0-66.0 89381-2) Lymphocyte % (test code = 24.9 % 24.0-44.0 737-7) Monocyte % (test code = 7.0 % 2.0-7.0 744-3) Eosinophil % (test code = 2.6 % 1.0-4.0 713-8) Basophil % (test code = 0.8 % 0.0-1.0 707-0) IGRE % (test code = 0.7 % 0.0-0.4 H IGRE % c ount 17178-8) includes Metamyelocytes, Myelocytes, and Promyelocytes. Neutrophil Abs (test code 7.60 K/uL 1.70-7.30 H = 753-4) Lymphocyte Abs (test code 2.96 K/uL 1.00-4.80 = 732-8) Monocyte Abs (test code = 0.83 K/uL 0.08-0.70 H 743-5) Eosinophil Abs (test code 0.31 K/uL 0.04-0.40 = 712-0) Basophil Abs (test code = 0.10 K/uL 0.00-0.10 705-4) IG Abs (test code = 0.08 K/uL 0.00-0.04 H 83874-6) Lab Interpretation (test Abnormal code = 24386-6) MD Cortez.[id number] 13:57:51 Test Item Value Reference Range Interpretation Comments WBC (test code = 11.9 K/uL 4.0-11.0 H 6690-2) RBC (test code = 789-8) 4.60 See_Comment [Au tomated message] The system [employer] generated this result transmitted ref erence range: 4.50 - 6 .00 M/uL. The refer ence range was not u sed to interpret this result as normal/abnor mal. Hgb (test code = 718-7) 9.1 See_Comment L [Au tomated message] The system [employer] generated this result transmitted ref erence range: 14.0 - 1 8.0 gm/dL. The refe rence range was not u sed to interpret this result as normal/abnor mal. Hct (test code = 32.0 % 40.0-54.0 L 4544-3) MPV (test code = 787-2) 8.2 fL 4.0-10.4 L MCH (test code = 785-6) 19.8 pg 27.0-31.0 L MCHC (test code = 28.4 See_Comment L [Automate d message] 786-4) The system [employer] generated this result transmitted ref erence range: 31.0 - 3 6.0 gm/dL. The refe rence range was not u sed to interpret this result as normal/abnor mal. RDW-SD (test code = 61.8 fL 35.1-46.3 H 36227-1) RDW-CV (test code = 27.2 % 12.0-15.5 H 788-0) Platelet count (test 561 K/uL 140-440 H code = 777-3) INRBC (test code = 0.0 % See_Comment The INRBC (instrument 5974) NRBC) value ref lects the enumeration of nucleated red b lood cells contained in a 200uL sampleof whole blood analyzed by the instrument. Thi s value maydiffer from the NRBC value reported in a m anual differential,wh ich is based on a 100 cell differential. [Automated mess age] The system whic h generated this result transmitted ref erence range: <=0.0. T he reference range was not used to int erpret this result as normal/abnormal . Lab Interpretation Abnormal (test code = 13937-9) MD CortezElectrolyte Wukcq9238-91-11 13:38:24 Test Item Value Reference Range Interpretation Comments Sodium Lvl (test code = 136 See_Comment [Au tomated message] The 7390) system which ge nerated this result tra nsmitted reference range : 136 - 145 mEq/L. The reference range was not u sed to interpret this result as normal/abnormal . Potassium Lvl (test 4.1 See_Comment [Automa annita message] The code = 6854) system which ge nerated this result tra nsmitted reference range : 3.5 - 5.1 mEq/L. The reference range was not u sed to interpret this result as normal/abnormal . Chloride (test code = 99 See_Comment [Auto mated message] The 4779) system which ge nerated this result tra nsmitted reference range : 98 - 107 mEq/L. The refe rence range was not u sed to interpret this result as normal/abnormal . CO2 (test code = 5227) 25 See_Comment [Aut omated message] The system which ge nerated this result tra nsmitted reference range : 22 - 29 mEq/L. The refe rence range was not u sed to interpret this result as normal/abnormal . Anion Gap (test code = 12 See_Comment [Aut omated message] The 9390) system which ge nerated this result tra nsmitted reference range : 4 - 14 mEq/L. The refe rence range was not u sed to interpret this result as normal/abnormal . MD CortezPhosphorus [id number] 13:38:23 Test Item Value Reference Range Interpretation Comments Phosphorus (test code = 6817) 3.8 mg/dL 2.5-4.5 MD CortezCalcium [id number] 13:38:22 Test Item Value Reference Range Interpretation Comments Calcium Lvl (test code = 5258) 9.6 mg/dL 8.4-10.2 MD CortezGlomerular Filtration [id number] 13:38:21 Test Item Value Reference Range Interpretation Comments eGFR-AA (test code 122 See_Comment Normal eG FR: >= 60 = 8062) mL/min/1.73 m2N ote: The eGFR is calculated u sing the CKD-EPI equatio n. The eGFR declines with a ge. eGFR <60 mL/min/1.73 m2 is considered as "decreased". This equation should only be used for patients 18 and older. According to e [employer]'s Kidney Disease Outcome Quality Initiative (KDO QI) classification and 2012 Kidney Disease Improving Global Outcomes (KDIGO) Clinical Practi ce Guideline, the stage of CK D should be categorized bas ed on estimated GFR. Stage Description GFR mL/min/1.73 m21 Normal or high GFR >=902 Mildly decrease d GFR 60-893a M ildly to moderately decr eased GFR 45-593b Moderat elizabeth to severely decrea sed GFR 30-444 Severely decreased GFR 15-295 Kid wong failure <15 [Automa annita message] The system [employer] h generated this result tra nsmitted reference range : >=60 mL/min/1.73 sq. m. The reference range was not used to interpret th is result as normal/abnormal . eGFR-ALISON (test code 105 See_Comment Normal e GFR: >= 60 = 8063) mL/min/1.73 m2N ote: The eGFR is calculated u sing the CKD-EPI equatio n. The eGFR declines with a ge. eGFR <60 mL/min/1.73 m2 is considered as "decreased". This equation should only be used for patients 18 and older. According to th e [employer] on's Kidney Disease Outcome Quality Initiative (KDO QI) classification and 2012 Kidney Disease Improving Global Outcomes (KDIGO) Clinical Practi ce Guideline, the stage of CK D should be categorized bas ed on estimated GFR. Stage Description GFR mL/min/1.73 m21 Normal or high GFR >=902 Mildly decrease d GFR 60-893a M ildly to moderately decr eased GFR 45-593b Moderat elizabeth to severely decrea sed GFR 30-444 Severely decreased GFR 15-295 Kid wong failure <15 [Automa annita message] The system [employer] generated this result tra nsmitted reference range : >=60 mL/min/1.73 sq. m. The reference range was not used to interpret th is result as normal/abnormal . MD CortezMagnesium [id number] 13:38:19 Test Item Value Reference Range Interpretation Comments Magnesium (test code = 6359) 1.9 mg/dL 1.6-2.6 MD CortezGlucose [id number] 13:38:18 Test Item Value Reference Range Interpretation Comments Glucose Level (test code 119 mg/dL 70-99 H Eff ective 11/22/15, = 5699) the glucose reference inter vals have been updat ed based on [place] Diabetes [employer] ation guidelines (Standards of Medical Care in Diabetes 2016. Diabetes Care 2 016; 39: S13-S22).Fa sting blood glucose:Normal: 70-99 mg/dLImpa ired fasting glucose (increased risk for diabetes or pre-diabetes): 100-125 mg/dLDiabetes mellitus: >/=1 26 mg/dL Random bl ood glucose:Normal: 70-199 mg/dLNot e: Random glucose >100 mg/dL is associ ated with increased risk for diabetes Lab Interpretation (test Abnormal code = 93992-3) MD Cortez.Serum [id number] 13:38:17 Test Item Value Reference Range Interpretation Comments Creatinine (test code = 5399) 0.86 mg/dL 0.67-1.17 MD [id number] 13:38:16 Test Item Value Reference Range Interpretation Comments BUN (test code = 5055) 12 mg/dL 6-23 MD CortezUrine [id number] 00:39:58 Test Item Value Reference Range Interpretation Comments Final Report (test No growth code = 8488) Path Review - Urine The results have been (test code = 8483) reviewed and electronically signed by Pathologist:SHEILA MEIER MD #[id number] [facility] Glucose [id number] 21:31:50 Test Item Value Reference Interpretation Comments Range POC Glucose (test 107 mg/dL 70-99 H RN Notifie dCapillary code = 82348-3) blood sample s, e.g. obtained by fingerstick, ma y have inaccurate resu lts in patients with decreased perip heral blood flow. Met hod description: Al l results are edson sured using Electroch emistry test methodolog y. The glucose in the sample mixes with the reagents on the test strip. The reac tion produces an becca ctric current. The am ount of current produce d is proportional to the glucose concent ration in the blood. PO Sample Type (test Capillary code = 9554) Performing Lab (test [facility] code = 46963) [facility] MD Maryan ludwig [facility], [address] [place] [address] 770 30; Truck Guard: Graciela Carpio MD Lab Interpretation Abnormal (test code = 38445-8) MD [id number] 11:24:17 Test Item Value Reference Range Interpretation Comments TSH (test code = 2.73 See_Comment [Automated message] The 6478) system which ge nerated this result transmit annita reference range : 0.27 - 4.20 mcunit/mL. The reference range was not used to interpr et this result as anthony l/abnormal. MD Salbador Workman Core Total [id number] 18:41:38 Test Item Value Reference Range Interpretation Comments HBc Total Ab-Fagan Negative Negative Test Perf ormed by:Jackman (test code = [facility] - 36822-0) [place] [employer] [id number] [employer] [place], [place] [address]Cgc Director: Cb Westbrook M.D. Ph. D.; CLIA# [id number] MD Siu B Surface [id number] 18:41:37 Test Item Value Reference Range Interpretation Comments Hep Bs Ab-Fagan Positive Patient is co nsidered to (test code = be immune to in fection 05526-5) with HBV. ----REFEREN CE VALUE -----Unvaccinat ed: NegativeVaccina annita: Positive Hep Bs Ab [facility] 42.1 mIU/mL --------- REFERE (test code = NCE 5193-8) VALUE -----Unvaccinat ed: <5.0Vaccinated: >=12.0 Test Performed by:[facility] [address] [place], [place] [address]Zhw Director: Cb Westbrook M.D. Ph. D.; CLIA# [id number] MD Siu B Surface Ag w/[id number] 18:24:04 Test Item Value Reference Range Interpretation Comments [facility] Test Perform ed by:Jackman (test code = [facility] - 5196-1) [place] [facility] [id number] [place], [place] [address]Wdb Director: Cb Westbrook M.D. Ph. D.; CLIA# [id number] MD Watkins RBC:G1049, 2 Cnhrb5919-32-47 03:51:43 Test Item Value Reference Range Interpretation Comments PRBC Product Ready 2 Red Blood Cells (test code = Available - 10761-4) Order Form 03 when ready for product issue. Unit Number (test [id number] code = 7002) Product Code (test [id number] code = 7003) Unit Expiration (test code = ) Unit Blood Type 600 (test code = 700) Product Code Text RBCIRLR Aph ACDA AS1 (test code = Bag 2 ) Crossmatch [id number] Expiration Date (test code = ) Unit Irradiated IRRADIATED (test code = ) Dispense Status ISSUED (test code = 700) Unit Blood Type A Negative (test code = 7005) Product Race Board Attendant .BPAM ____ Location (test ___ code = 743533) ___ ____ MD Henry HIV 1/2 Ag&Ab Path [id number] 03:42:57 Test Item Value Reference Range Interpretation Comments HIV 1/2 Ag&Ab Negative for Interp (test HIV-1 antigen and code = 9394) HIV-1/HIV-2 ____CAMACHO REYES MD - antibodies. No 93086Xxgyekcf by: CAMACHO SUN MD - evidence of HIV 89076Hdblryi d Date/Time: infection. 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 70758 on 21:42 PM MD Henry HCV Ab Path [id number] 03:41:47 Test Item Value Reference Range Interpretation Comments HCV Ab Path There is NO Interp (test serologic code = 8923) evidence of ____CAMACHO REYES MD - Hepatitis C 56705Eibfjdpi b y: CAMACHO virus antibody. ESTEVAN SUN MD - 36652Acaphxjo D ate/Time: 04.24.2021 21:4 1 PM ADDING MACHINE OPERATOR Transcribed Da te/Time: 04.24.2021 21:4 1 PM CSTElectronical ly Signed By: MD Gaby JIANG [id number] on 04.24 21:41 PM MD AndersonHepatitis C Virus [id number] 03:06:59 Test Item Value Reference Range Interpretation Comments HCVAb. (test Non Reactive Non Reactive Antibody detect ion in the code = 5762) immunocompromis ed and immunosuppresse d population may be delayed or absent entirely. There fore serial testing, correl ation with other clinical findings, and supplementa l testing (if available) should be taken into cons ideration when interpreti ng the results.Perform ed at:MD [facility] [id number] [place] [address] 770 54 MD CortezHIV-1/2 Antigen and Antibodies, Fourth [id number] 02:44:10 Test Item Value Reference Range Interpretation Comments HIV 1/2 Ag & Ab, Non Reactive Non Reactive Performed a t: 4th Gen (test code [facility] = 9280) [id number] [place] [address] 770 54 MD CortezTMP Interpretation [id number] 21:19:44 Test Item Value Reference Range Interpretation Comments TMP XM Interp RBC units (test code = crossmatched for 7566) transfusion appear GABBIE SUN MD acceptable. - 63516Cljfhkbn by: CAMACHO SUN MD - 31280Myhrnzwa Date/Time: 03.29 15:19 PM ADDING MACHINE OPERATOR Transcribed Jung e/Time: 04.24.2021 15:1 9 PM CSTElectronical ly Signed By: MALKA SUN MD - [id number] on 04.24.2021 15:1 9 PM MD CortezVitamin D [id number] 20:32:30 Test Item Value Reference Range Interpretation Comments Vitamin D 25 OH (test 8 ng/mL 30-100 L Refere nce Range: code = 8018) Deficiency: <10 ng/mLInsufficie ncy: 10-29 ng/mLSufficienc y: 30-100 ng/mLPotential toxicity: >10 0 ng/mL Lab Interpretation (test Abnormal code = 08830-3) MD CortezPTH [id number] 20:17:49 Test Item Value Reference Range Interpretation Comments PTH Intact (test code = 6769) 7.2 pg/mL 15.0-65.0 L Lab Interpretation (test code = Abnormal 48935-9) MD CortezCalcium Ionized, [id number] 19:05:20 Test Item Value Reference Range Interpretation Comments V Ion Ca (test code = 71392-0) 1.39 mmol/L 1.15-1.29 H Lab Interpretation (test code = Abnormal 13964-2) MD CortezRBC Product Ready for Pick [id number] 18:21:02 Test Item Value Reference Range Interpretation Comments PRBC Product Ready B2 Blood Bank Product is ready for for Race Board Attendant (test coal picker on March code = 301968) 2020 12:2 0:47 ADDING MACHINE OPERATOR. MD CortezTMP Interpretation Antibody Screen [id number] 11:42:15 Test Item Value Reference Range Interpretation Comments TMP Auto Neg At the present ABSC Interp time, patient (test code = plasma shows no ____CAMACHO SUN MD - 7535) evidence of RBC 63132Wqrvlcc d by: CAMACHO alloantibodies. MD Gaby LARA 82552Vhgqdofa D ate/Time: 04.24.2021 5:42 AM ADDING MACHINE OPERATOR Transcribed Jung e/Time: 04.24.2021 5:42 AM CSTElectronical ly Signed By: MD Gaby JIANG [id number] on 04.24 5:42 AM C MD CortezConfirm [id number] 09:02:13 Test Item Value Reference Range Interpretation Comments ABORh Confirm. (test code = 882-1) A POS MD CortezAntibody [id number] 09:02:06 Test Item Value Reference Range Interpretation Comments ABSC. (test code = 890-4) Negative ABSC MD CortezAawupugaIBJYr6185-87-48 09:02:05 Test Item Value Reference Range Interpretation Comments ABORh. (test code = 882-1) A POS MD CortezClot Expiration [id number] 09:01:53 Test Item Value Reference Range Interpretation Comments T & S Expiration (test code = 04/26/2021 5318) MD CortezFerritin [id number] 03:08:36 Test Item Value Reference Range Interpretation Comments Ferritin Lvl (test code = 5608) 21 ng/mL 30-400 L Lab Interpretation (test code = Abnormal 32007-5) MD CortezTransferrin with [id number] 03:03:17 Test Item Value Reference Range Interpretation Comments Transferrin (test code 225 mg/dL 200-360 = 7653) TIBC (test code = 315 See_Comment [Automate d message] 7342) The system MyClean generated this result transmitted ref erence range: 250 - 45 0 mcg/dL. The ref erence range was not u sed to interpret this result as normal/abnor mal. MD CortezIron [id number] 03:03:16 Test Item Value Reference Range Interpretation Comments Iron (test code = 6066) 14 See_Comment L [Au tomated message] The system MyClean generated this result transmitted ref erence range: 59 - 158 mcg/dL. The ref erence range was not u sed to interpret this result as normal/abnor mal. Lab Interpretation (test Abnormal code = 93446-5) MD CortezHemoglobin [id number] 02:54:26 Test Item Value Reference Range Interpretation Comments A1C (test code = 4632) 5.8 % 4.3-5.6 H HbA1c values >=6.5% are diagnostic of diabetes mellitus.Diagno sis should be confi rmed by repeat testing.Therape utic Action suggeste d: >8.0% HbA1c; Go al oftherapy: <7.0 % HbA1c Lab Interpretation (test Abnormal code = 38184-0) MD Siu B Surface [id number] 01:20:34 Test Item Value Reference Range Interpretation Comments HBsAg Received (test See Note HBsAg w as sent to a code = 64896) reference lab for testing. Expec t results on Hepa titis B Surface Antigen w/ Confirm within 96 hours. MD Siu B Total Ig Core Ab (SCREENING) (anti-HBc total Ig; HBcAb total Ig)2021-04-24 01:20:33 Test Item Value Reference Range Interpretation Comments HBcAb Received (test See Note HBcAb w as sent to a code = 17861) reference lab for testing. Expec t results on Hepa titis B Core Total Ab w ithin 96 hours. MD CortezCOVID-19 (SARS-CoV-2)Jfnhrnhdxrtu-NZ0447-09-27 23:52:48 Test Item Value Reference Range Interpretation Comments COVID19 Not Detected Not Detected (SARS-CoV-2) (test code = 71030-3) COVID19 SARS Inpatient Indication (test Admission code = 67917) Covid 19 Comment See Note The [place] S ARS-CoV-2 (test code = [place] [address]) use on the afshin s Heather System is a jarocho l-time RT-PCR assay in tended for the qualita tive detection of SARS-CoV-2 (COV ID-19) viral RNA in nasopharyngeal swabs from either individuals han pected of COVID-19 by their healthcare prov ider or from any individual, inc luding individuals wit hout symptoms or oth er reasons to susp ect COVID-19. A fa ct sheet for patie nts provided by the associate consulting engineer ([employer]) can be rev iewed at: https://www.fda .gov/m edia/029817/raphael nload. A fact sheet fo r Health Care pro viders is provided by the associate consulting engineer ([employer]) and can be reviewed at: https://www.fda .gov/m edia/994961/raphael nload Results must be interpreted wit hin the context of all relevant clinic al and laboratory find ings and should not form the sole basis for a diagnosis or treatment decis ion. Positive result s do not rule out bacterial infec tion or co-infection with other viruses. Negative result s do not preclude SARS-CoV-2 infe ction and must be com bined with clinical observations, p atient history, and/or epidemiological information. Th is assay has been authorized by t FDA for use only un boni Emergency Use Authorization ( EUA) in laboratories that have been CLIA-certified to perform moderate-comple xity and high-comple xity tests. The Microbiology Laboratory at [facility], CLIA Accreditation #[id number] and CAP Accreditation #[id number], verif ied the performance characteristics of this assay. Int ernal controls are ed to monitor all sta ges of the test proces s. MD CortezProthrombin Time with [id number] 23:16:05 Test Item Value Reference Range Interpretation Comments PT (test code = 6746) 15.8 See_Comment H Repeat ed and Verified [Automated mess age] The system whic h generated this result transmitted ref erence range: 11.5 - 1 3.9 second(s). The reference range was not used to int erpret this result as normal/abnormal . INR (test code = 5973) 1.37 0.90-1.10 H Repea annita and Verified Lab Interpretation (test Abnormal code = 57573-5) MD CortezJrqbqjwajDQU9909-69-50 23:10:19 Test Item Value Reference Range Interpretation Comments aPTT (test code = 33.8 See_Comment [Automate d message] The 6773) system which ge nerated this result transmit annita reference range : 24.7 - 36.8 second(s). The reference range was not used to interpr et this result as anthony l/abnormal. MD CortezUrinalysis with [id number] 23:08:50 Test Item Value Reference Interpretation Comments Range UA WBC (test code = 4 See_Comment H [Automa annita 7904) message] The system which generated this result transmitted reference range : 0 - 2 /HPF. The reference range was not used to interpret this result as normal/abnormal . UA RBC (test code = 4 See_Comment H [Automa annita 7891) message] The system which generated this result transmitted reference range : 0 - 2 /HPF. The reference range was not used to interpret this result as normal/abnormal . UA Mucous (test code NOT SEEN Not Seen-Trace = 7887) /HPF UA Bacteria (test NOT SEEN NOT SEEN /HPF code = 7870) UA Squam Epi (test OCC None-Occasiona code = 7896) l /HPF SARAH (test code = Some reporting SARAH) parameters within the Urinalysis test have changed due to the implementation of new instrumentation in the [facility], allowing greater sensitivity of measurement. Urinalysis results reported by the [facility] using existing instrumentation, as well as Urinalysis testing performed manually or by backup methodology at the [facility] will remain relatively unchanged. New reporting parameters and units will now be reported for all campuses. Lab Interpretation Abnormal (test code = 53987-3) MD CortezFractionated [id number] 22:50:22 Test Item Value Reference Range Interpretation Comments Bili Total (test 0.3 mg/dL See_Comment Indocyanine Green (ICG) code = 5096) may cause false ly elevated biliru bin results. Total and direct bilirubin must not be measured from s amples containing indo cyanine green. False el evation of total bilirubin can be seen in patient s with IgG concentrations above 28 g/L. [Automate d message] The system MyClean generated this result transmitted ref erence range: <=1.2. T he reference range was not used to interpr et this result as normal/abnormal . Bili Direct (test <0.2 See_Comment Indocyanin e Green (ICG) code = 5094) may cause false ly elevated biliru bin results. Total and direct bilirubin must not be measured from s amples containing indo cyanine green. [Automat ed message] The sy stem which generated this result transmitted ref erence range: <=0.3 mg /dL. The reference range was not used to interpr et this result as normal/abnormal . Bili Indirect (test See Note 0.0-0.9 Unable t o calculate code = 5095) Indirect Biliru bin result due to some par ameters are outside rep ortable range MD CortezAlbumin [id number] 22:50:19 Test Item Value Reference Range Interpretation Comments Albumin Lvl (test code = 2.7 See_Comment L [A utomated message] 5643) The system My[employer] generated this result transmitted ref erence range: 3.5 - 5. 2 gm/dL. The refe rence range was not u sed to interpret this result as normal/abnor mal. Lab Interpretation (test Abnormal code = 86131-6) MD CortezAspartate [id number] 22:50:18 Test Item Value Reference Range Interpretation Comments AST (test code = 12 U/L See_Comment [Automated message] The 3919) system which ge nerated this result transmit annita reference range : <=40. The reference range was not used to interpr et this result as anthony l/abnormal. MD CortezTotal [id number] 22:50:12 Test Item Value Reference Range Interpretation Comments Total Protein (test code = 7649) 7.8 g/dL 6.4-8.3 MD CortezAlkaline [id number] 22:50:10 Test Item Value Reference Range Interpretation Comments Alk Phos (test code = 4768) 100 U/L 40-129 MD CortezVoxdmandLAF9556-90-03 22:50:09 Test Item Value Reference Range Interpretation Comments ALT (test code = 7 U/L See_Comment [Automated message] The 0284) system which ge nerated this result transmit annita reference range : <=41. The reference range was not used to interpr et this result as anthony l/abnormal. MD CortezUrinalysis w/Microscopic if [id number] 22:35:37 Test Item Value Reference Range Interpretation Comments UA Color (test code = 7877) Yellow Straw-Yellow UA Appear (test code = 7868) Hazy Clear A UA Glucose (test code = 7881) NEG NEG mg/dL UA Bili (test code = 7871) NEG NEG UA Ketones (test code = 7884) NEG NEG mg/dL UA Spec Grav (test code = 7894) 1.015 1.003-1.035 UA Blood (test code = 7872) NEG NEG UA pH (test code = 7909) 5.0 5.0-9.0 UA Protein (test code = 7890) NEG NEG mg/dL UA Urobilinogen (test code = 7903) NEG NEG UA Nitrite (test code = 7888) NEG NEG UA Leuk Est (test code = 7886) NEG NEG Lab Interpretation (test code = Abnormal 42583-1) MD [id number] 12:17:00 Test Item Value Reference Range Interpretation Comments GLUBED (test code = 215 mg/dL 74-106 H Performe d by certified GLUBED) 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 [facility] [id number] 12:17:00 Test Item Value Reference Range Interpretation Comments GLUBED (test code = 213 mg/dL 74-106 H Performe d by certified GLUBED) 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 [facility] [id number] 12:16:00 Test Item Value Reference Range Interpretation Comments GLUBED (test code = 156 mg/dL 74-106 H Performe d by certified GLUBED) 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 [facility] [id number] 12:15:00 Test Item Value Reference Range Interpretation Comments GLUBED (test code = 183 mg/dL 74-106 H Performe d by certified GLUBED) 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 [facility] [id number] 12:15:00 Test Item Value Reference Range Interpretation Comments GLUBED (test code 190 mg/dL 74-106 H Performed by certified = GLUBED) 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 ot[facility]~ [id number] 12:14:00 Test Item Value Reference Range Interpretation Comments GLUBED (test code 212 mg/dL 74-106 H Performed by certified = GLUBED) 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~ [id number] 12:14:00 Test Item Value Reference Range Interpretation Comments GLUBED (test code = 263 mg/dL 74-106 H Performe d by certified GLUBED) 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 [facility] [id number] 16:11:00 Test Item Value Reference Range Interpretation Comments GLUBED (test code = 189 mg/dL 74-106 H Performe d by certified GLUBED) 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 [facility] [id number] 10:41:00 Test Item Value Reference Range Interpretation Comments GLUBED (test code = 182 mg/dL 74-106 H Performe d by certified GLUBED) 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 [facility] [id number] 20:48:00 Test Item Value Reference Range Interpretation Comments GLUBED (test code = 198 mg/dL 74-106 H Performe d by certified GLUBED) 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 [facility] [id number] 16:01:00 Test Item Value Reference Range Interpretation Comments GLUBED (test code = 177 mg/dL 74-106 H Performe d by certified GLUBED) 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 [facility] [id number] 11:42:00 Test Item Value Reference Range Interpretation Comments GLUBED (test code = 174 mg/dL 74-106 H Performe d by certified GLUBED) 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 [facility] CBC W/AUTO [id number] 06:22:00 Test Item Value Reference Range Interpretation [...] SCAN NEEDED (test code = MDIFF) DIFFERENTIAL [id number] 06:22:00 Test Item Value Reference Range Interpretation Comments STAIN ACCEPTABILITY (test STAIN ACCEPTABLE code = STN ACCEPTABLE) MORPHOLOGY COMMENT (test NORMAL code = MOC) PLATELET ESTIMATE (test code ADEQUATE = PLTEST) PLATELET MORPHOLOGY (test NORMAL code = PLTMORPH) BASIC METABOLIC [id number] 05:33:00 Test Item Value Reference Range Interpretation [...] >3 months. [Automated mess age] The system MyClean generated this result transmitted ref erence range: >=60. Th e reference range was not used to int erpret this result as normal/abnormal . CREATININE (test code 0.90 mg/dL 0.7-1.3 N = CREAT) BUN/CREATININE RATIO 11.6 10-20 N (test code = BUN/CREA) CALCIUM (test code = 8.5 mg/dL 8.5-10.1 N CA) CBC W/AUTO [id number] 05:01:00 Test Item Value Reference Range Interpretation [...] SCAN NEEDED (test code = MDIFF) DIFFERENTIAL [id number] 05:01:00 Test Item Value Reference Range Interpretation Comments STAIN ACCEPTABILITY (test code = STN ACCEPTABLE) CABOT RINGS (test code = CAB) MORPHOLOGY COMMENT (test code = MOC) PLATELET ESTIMATE (test code = PLTEST) PLATELET MORPHOLOGY (test code = PLTMORPH) CBC W/AUTO [id number] 05:01:00 Test Item Value Reference Range Interpretation [...] SCAN NEEDED (test code = MDIFF) DIFFERENTIAL [id number] 05:01:00 Test Item Value Reference Range Interpretation Comments STAIN ACCEPTABILITY (test code = STN ACCEPTABLE) CABOT RINGS (test code = CAB) MORPHOLOGY COMMENT (test code = MOC) PLATELET ESTIMATE (test code = PLTEST) PLATELET MORPHOLOGY (test code = PLTMORPH) CBC W/AUTO [id number] 05:01:00 Test Item Value Reference Range Interpretation [...] SCAN NEEDED (test code = MDIFF) DIFFERENTIAL [id number] 05:01:00 Test Item Value Reference Range Interpretation Comments STAIN ACCEPTABILITY (test code = STN ACCEPTABLE) MORPHOLOGY COMMENT (test code = MOC) PLATELET ESTIMATE (test code = PLTEST) PLATELET MORPHOLOGY (test code = PLTMORPH) CBC W/AUTO [id number] 05:01:00 Test Item Value Reference Range Interpretation [...] SCAN NEEDED (test code = MDIFF) DIFFERENTIAL [id number] 05:01:00 Test Item Value Reference Range Interpretation Comments STAIN ACCEPTABILITY (test code = STN ACCEPTABLE) CABOT RINGS (test code = CAB) MORPHOLOGY COMMENT (test code = MOC) PLATELET ESTIMATE (test code = PLTEST) PLATELET MORPHOLOGY (test code = PLTMORPH) [id number] 21:00:00 Test Item Value Reference Range Interpretation Comments GLUBED (test code = 211 mg/dL 74-106 H Performe d by certified GLUBED) 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 [facility] [id number] 16:29:00 Test Item Value Reference Range Interpretation Comments GLUBED (test code = 158 mg/dL 74-106 H Performe d by certified GLUBED) 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 [facility] [id number] 11:57:00 Test Item Value Reference Range Interpretation Comments GLUBED (test code = 101 mg/dL 74-106 N Performe d by certified GLUBED) 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 [facility] CBC W/AUTO [id number] 09:46:00 Test Item Value Reference Range Interpretation [...] SCAN NEEDED (test code = MDIFF) DIFFERENTIAL [id number] 09:46:00 Test Item Value Reference Range Interpretation Comments STAIN ACCEPTABILITY (test STAIN ACCEPTABLE code = STN ACCEPTABLE) MORPHOLOGY COMMENT (test NORMAL code = MOC) PLATELET ESTIMATE (test code ADEQUATE = PLTEST) PLATELET MORPHOLOGY (test NORMAL code = PLTMORPH) [id number] 08:20:00 Test Item Value Reference Range Interpretation Comments GLUBED (test code = 257 mg/dL 74-106 H Performe d by certified GLUBED) 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 [facility] BASIC METABOLIC [id number] 07:03:00 Test Item Value Reference Range Interpretation [...] >3 months. [Automated mess age] The system MyClean generated this result transmitted ref erence range: >=60. Th e reference range was not used to int erpret this result as normal/abnormal . CREATININE (test code 0.90 mg/dL 0.7-1.3 N = CREAT) BUN/CREATININE RATIO 11.7 10-20 N (test code = BUN/CREA) CALCIUM (test code = 8.6 mg/dL 8.5-10.1 N CA) CBC W/AUTO [id number] 05:51:00 Test Item Value Reference Range Interpretation [...] SCAN NEEDED (test code = MDIFF) DIFFERENTIAL [id number] 05:51:00 Test Item Value Reference Range Interpretation Comments STAIN ACCEPTABILITY (test code = STN ACCEPTABLE) CABOT RINGS (test code = CAB) MORPHOLOGY COMMENT (test code = MOC) PLATELET ESTIMATE (test code = PLTEST) PLATELET MORPHOLOGY (test code = PLTMORPH) CBC W/AUTO [id number] 05:51:00 Test Item Value Reference Range Interpretation [...] SCAN NEEDED (test code = MDIFF) DIFFERENTIAL [id number] 05:51:00 Test Item Value Reference Range Interpretation Comments STAIN ACCEPTABILITY (test code = STN ACCEPTABLE) CABOT RINGS (test code = CAB) MORPHOLOGY COMMENT (test code = MOC) PLATELET ESTIMATE (test code = PLTEST) PLATELET MORPHOLOGY (test code = PLTMORPH) CBC W/AUTO [id number] 05:51:00 Test Item Value Reference Range Interpretation [...] SCAN NEEDED (test code = MDIFF) DIFFERENTIAL [id number] 05:51:00 Test Item Value Reference Range Interpretation Comments STAIN ACCEPTABILITY (test code = STN ACCEPTABLE) MORPHOLOGY COMMENT (test code = MOC) PLATELET ESTIMATE (test code = PLTEST) PLATELET MORPHOLOGY (test code = PLTMORPH) CBC W/AUTO [id number] 05:51:00 Test Item Value Reference Range Interpretation [...] SCAN NEEDED (test code = MDIFF) DIFFERENTIAL [id number] 05:51:00 Test Item Value Reference Range Interpretation Comments STAIN ACCEPTABILITY (test code = STN ACCEPTABLE) CABOT RINGS (test code = CAB) MORPHOLOGY COMMENT (test code = MOC) PLATELET ESTIMATE (test code = PLTEST) PLATELET MORPHOLOGY (test code = PLTMORPH) [id number] 16:50:00 Test Item Value Reference Range Interpretation Comments GLUBED (test code 215 mg/dL 74-106 H Performed by certified = GLUBED) 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 [id number] 12:01:00 Test Item Value Reference Range Interpretation Comments GLUBED (test code 187 mg/dL 74-106 H Performed by certified = GLUBED) 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 [id number] 20:23:00 Test Item Value Reference Range Interpretation Comments GLUBED (test code = 232 mg/dL 74-106 H Performe d by certified GLUBED) 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 [facility] [id number] 16:36:00 Test Item Value Reference Range Interpretation Comments GLUBED (test code = 180 mg/dL 74-106 H Performe d by certified GLUBED) 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 [Automated mess age] The system MyClean generated this result transmitted ref erence range: >=60. Th e reference range was not used to int erpret this result as normal/abnormal . CREATININE (test code 0.80 mg/dL 0.7-1.3 N = CREAT) BUN/CREATININE RATIO 11.9 10-20 N (test code = BUN/CREA) CALCIUM (test code = 8.3 mg/dL 8.5-10.1 L CA) CBC W/AUTO [id number] 05:37:00 Test Item Value Reference Range Interpretation [...] SCAN NEEDED (test code = MDIFF) DIFFERENTIAL [id number] 05:37:00 Test Item Value Reference Range Interpretation Comments STAIN ACCEPTABILITY (test code = STN ACCEPTABLE) CABOT RINGS (test code = CAB) MORPHOLOGY COMMENT (test code = MOC) PLATELET ESTIMATE (test code = PLTEST) PLATELET MORPHOLOGY (test code = PLTMORPH) CBC W/AUTO [id number] 05:37:00 Test Item Value Reference Range Interpretation [...] SCAN NEEDED (test code = MDIFF) DIFFERENTIAL [id number] 05:37:00 Test Item Value Reference Range Interpretation Comments STAIN ACCEPTABILITY (test code = STN ACCEPTABLE) CABOT RINGS (test code = CAB) MORPHOLOGY COMMENT (test code = MOC) PLATELET ESTIMATE (test code = PLTEST) PLATELET MORPHOLOGY (test code = PLTMORPH) CBC W/AUTO [id number] 05:37:00 Test Item Value Reference Range Interpretation [...] SCAN NEEDED (test code = MDIFF) DIFFERENTIAL [id number] 05:37:00 Test Item Value Reference Range Interpretation Comments STAIN ACCEPTABILITY (test code = STN ACCEPTABLE) MORPHOLOGY COMMENT (test code = MOC) PLATELET ESTIMATE (test code = PLTEST) PLATELET MORPHOLOGY (test code = PLTMORPH) CBC W/AUTO [id number] 05:37:00 Test Item Value Reference Range Interpretation [...] SCAN NEEDED (test code = MDIFF) DIFFERENTIAL [id number] 05:37:00 Test Item Value Reference Range Interpretation Comments STAIN ACCEPTABILITY (test code = STN ACCEPTABLE) CABOT RINGS (test code = CAB) MORPHOLOGY COMMENT (test code = MOC) PLATELET ESTIMATE (test code = PLTEST) PLATELET MORPHOLOGY (test code = PLTMORPH) [id number] 16:06:00 Test Item Value Reference Range Interpretation Comments GLUBED (test code 237 mg/dL 74-106 H Performed by certified = GLUBED) 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 [id number] 12:35:00 Test Item Value Reference Range Interpretation Comments GLUBED (test code 271 mg/dL 74-106 H Performed by certified = GLUBED) 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~ [id number] 08:08:00 Test Item Value Reference Range Interpretation Comments GLUBED (test code 233 mg/dL 74-106 H Performed by certified = GLUBED) 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 CBC W/AUTO [id number] 07:56:00 Test Item Value Reference Range Interpretation [...] SCAN NEEDED (test code = MDIFF) DIFFERENTIAL [id number] 07:56:00 Test Item Value Reference Range Interpretation Comments STAIN ACCEPTABILITY (test STAIN ACCEPTABLE code = STN ACCEPTABLE) MORPHOLOGY COMMENT (test NORMAL code = MOC) PLATELET ESTIMATE (test code ADEQUATE = PLTEST) PLATELET MORPHOLOGY (test NORMAL code = PLTMORPH) COMPREHENSIVE METABOLIC [id number] 05:54:00 Test Item Value Reference Range Interpretation [...] >3 months. [Automated mess age] The system MyClean generated this result transmitted ref erence range: [...] ALKP) to change in reagent. CBC W/AUTO [id number] 05:12:00 Test Item Value Reference Range Interpretation [...] SCAN NEEDED (test code = MDIFF) DIFFERENTIAL [id number] 05:12:00 Test Item Value Reference Range Interpretation Comments STAIN ACCEPTABILITY (test code = STN ACCEPTABLE) MORPHOLOGY COMMENT (test code = MOC) PLATELET ESTIMATE (test code = PLTEST) PLATELET MORPHOLOGY (test code = PLTMORPH) CBC W/AUTO [id number] 05:12:00 Test Item Value Reference Range Interpretation [...] SCAN NEEDED (test code = MDIFF) DIFFERENTIAL [id number] 05:12:00 Test Item Value Reference Range Interpretation Comments STAIN ACCEPTABILITY (test code = STN ACCEPTABLE) CABOT RINGS (test code = CAB) MORPHOLOGY COMMENT (test code = MOC) PLATELET ESTIMATE (test code = PLTEST) PLATELET MORPHOLOGY (test code = PLTMORPH) CBC W/AUTO [id number] 05:11:00 Test Item Value Reference Range Interpretation [...] SCAN NEEDED (test code = MDIFF) DIFFERENTIAL [id number] 05:11:00 Test Item Value Reference Range Interpretation Comments STAIN ACCEPTABILITY (test code = STN ACCEPTABLE) CABOT RINGS (test code = CAB) MORPHOLOGY COMMENT (test code = MOC) PLATELET ESTIMATE (test code = PLTEST) PLATELET MORPHOLOGY (test code = PLTMORPH) CBC W/AUTO [id number] 05:11:00 Test Item Value Reference Range Interpretation [...] SCAN NEEDED (test code = MDIFF) DIFFERENTIAL [id number] 05:11:00 Test Item Value Reference Range Interpretation Comments STAIN ACCEPTABILITY (test code = STN ACCEPTABLE) CABOT RINGS (test code = CAB) MORPHOLOGY COMMENT (test code = MOC) PLATELET ESTIMATE (test code = PLTEST) PLATELET MORPHOLOGY (test code = PLTMORPH) [id number] 20:37:00 Test Item Value Reference Range Interpretation Comments GLUBED (test code = 297 mg/dL 74-106 H Performe d by certified GLUBED) 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 [Automated mess age] The system MyClean generated this result transmitted ref erence range: [...] range due ALKP) to change in reagent. 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 [facility] LIPID PROFILE (CORONARY RISK)2020-08-30 09:41:00 Test Item [...] is a direct measurement.=== ====== THYROID STIMULATING [id number] 09:41:00 Test Item Value Reference Range Interpretation Comments THYROID STIMULATING 2.255 uIU/mL 0.36-3.74 N TSH REFE RENCE HORMONE (test code = RANGES: EUTHYROID: TSH) 0.35 - 4.3 mIU/mL HYPO : > 5.5 mIU/mL HYPER : < 0.35 mIU/mL CBC W/AUTO [id number] 09:11:00 Test Item Value Reference Range Interpretation [...] SCAN NEEDED (test code = MDIFF) DIFFERENTIAL [id number] 09:11:00 Test Item Value Reference Range Interpretation Comments STAIN ACCEPTABILITY (test STAIN ACCEPTABLE code = STN ACCEPTABLE) POLYCHROMASIA (test code = 1+ POLC) HYPOCHROMIA (test code = 1+ HYPO) ANISOCYTOSIS (test code = 1+ ANISO) MICROCYTOSIS (test code = 1+ MICR) PLATELET ESTIMATE (test code ADEQUATE = PLTEST) PLATELET MORPHOLOGY (test NORMAL code = PLTMORPH) [id number] 08:40:00 Test Item Value Reference Range Interpretation Comments GLYCOSYLATED HEMOGLOBIN 11.0 % HbA1 JOYCEG CARLO (HA1C) (test code = DIAGNOSI S: HbA1C GLYHGB) (%) ---- ------ Diab etic >6.4Prediabetes 5.7 - 6.4Normal <5.7 ESTIMATED AVERAGE 269 MG/DL GLUCOSE (test code = EAG) CBC W/AUTO [id number] 08:23:00 Test Item Value Reference Range Interpretation [...] SCAN NEEDED (test code = MDIFF) DIFFERENTIAL [id number] 08:23:00 Test Item Value Reference Range Interpretation Comments STAIN ACCEPTABILITY (test code = STN ACCEPTABLE) CABOT RINGS (test code = CAB) MORPHOLOGY COMMENT (test code = MOC) PLATELET ESTIMATE (test code = PLTEST) PLATELET MORPHOLOGY (test code = PLTMORPH) CBC W/AUTO [id number] 08:23:00 Test Item Value Reference Range Interpretation [...] SCAN NEEDED (test code = MDIFF) DIFFERENTIAL [id number] 08:23:00 Test Item Value Reference Range Interpretation Comments STAIN ACCEPTABILITY (test code = STN ACCEPTABLE) MORPHOLOGY COMMENT (test code = MOC) PLATELET ESTIMATE (test code = PLTEST) PLATELET MORPHOLOGY (test code = PLTMORPH) CBC W/AUTO [id number] 08:22:00 Test Item Value Reference Range Interpretation [...] SCAN NEEDED (test code = MDIFF) DIFFERENTIAL [id number] 08:22:00 Test Item Value Reference Range Interpretation Comments STAIN ACCEPTABILITY (test code = STN ACCEPTABLE) CABOT RINGS (test code = CAB) MORPHOLOGY COMMENT (test code = MOC) PLATELET ESTIMATE (test code = PLTEST) PLATELET MORPHOLOGY (test code = PLTMORPH) CBC W/AUTO [id number] 08:22:00 Test Item Value Reference Range Interpretation [...] SCAN NEEDED (test code = MDIFF) DIFFERENTIAL [id number] 08:22:00 Test Item Value Reference Range Interpretation Comments STAIN ACCEPTABILITY (test code = STN ACCEPTABLE) CABOT RINGS (test code = CAB) MORPHOLOGY COMMENT (test code = MOC) PLATELET ESTIMATE (test code = PLTEST) PLATELET MORPHOLOGY (test code = PLTMORPH) - CT ABD PELVIS [id number] 20:38:00 [facility] ([facility])Name: RAN GUERRERO : 1975 Sex: M Name: RAN GUERRERO [facility] : Age/S: 44 / M [address] [facility]: [id number] Loc: [place] [address] Phys: Ban Arnold NP Acct: [id number] Dis Date: Status: REG ER PHONE #: [phone] Exam Date: 08/29/20202022 FAX #: [phone] 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, isidro EXAMS: CPT CODE: [id number] CT ABD PELVIS W/CONT 81522 EXAM: CT of the abdomen and pelvis [...] CT CTDI: DLP: Trnscb Date/Time: 08/29/2020 (2037) Dilan.GRW Orig Print D/T: S: 08/29/2020 (2040) PAGE 1 Signed Report- XR CHEST 1 V 2020-08-29 20:14:00 [facility] 1975 Sex: M FAX: Ban Arnold NP [place]: St: REG Name: RAN GUERRERO [facility] : 1975 Age/S: 44/M [address] [facility] Unit #: [id number] Loc: [place] [address] Phys: Ban Arnold NP Acct: [id number] Dis Date: Status: REG ER PHONE #: [phone] Exam Date: 08/29/20201918 FAX #: [phone] Reason: CODE SEPSIS EXAMS: CPT CODE: [id number] XR CHEST 1 V 54004 EXAM: Chest X- ray, 1 view; CLINICAL [...] (2017) PAGE 1 Signed ReportCOVID 19 INHOUSE [id number] 20:02:00 Test Item Value Reference Range Interpretation Comments COVID 19 INHOUSE AG (test code = NEGATIVE NEGATIVE [id number]) BASIC METABOLIC [id number] 19:53:00 Test Item Value Reference Range Interpretation [...] >3 months. [Automated mess age] The system MyClean generated this result transmitted ref erence range: >=60. Th e reference range was not used to int erpret this result as normal/abnormal . CREATININE (test 1.00 mg/dL 0.7-1.3 N code = CREAT) BUN/CREATININE RATIO 11.6 10-20 N (test code = BUN/CREA) CALCIUM (test code = 8.5 mg/dL 8.5-10.1 N CA) HEPATIC FUNCTION [id number] 19:53:00 Test Item Value Reference Range Interpretation [...] range due ALKP) to change in reagent. [id number] 19:53:00 Test Item Value Reference Range Interpretation Comments TROPONIN-I (test code = TROPI) < 0.006 ng/mL 0-0.045 N B-TYPE NATRIURETIC [id number] 19:52:00 Test Item Value Reference Range Interpretation Comments B-TYPE NATRIURETIC PEPTIDE 20.0 pgram/mL 0-100 N (test code = BNP) LACTIC [id number] 19:33:00 Test Item Value Reference Range Interpretation Comments LACTIC ACID (test code = LACT) 1.3 mmol/L 0.4-1.9 N CBC W/AUTO [id number] 19:15:00 Test Item Value Reference Range Interpretation [...] code = 0.00 K/mm3 0.0-0.1 N NRBC#) Energy [id number] 07:04:53 Test Item Value Reference Range Interpretation Comments Energy Level (test code = 0.52 mmol/L 0.60-1.20 L Energy Level) Energy [id number] 06:31:16 Test Item Value Reference Range Interpretation Comments Energy Level (test code = 0.39 mmol/L 0.60-1.20 L Energy Level) RPR [id number] 03:58:40 Test Item Value Reference Range Interpretation [...] = 08/26/2019 N Expiration Dt) Thyroid Stimulating [id number] 02:50:00 Test Item Value Reference Range Interpretation Comments TSH (test code = TSH) 1.590 mIU/mL 0.270-4.200 Lipid [id number] 02:33:22 Test Item Value Reference Range Interpretation Comments Cholesterol Total 197 mg/dL 0-200 RISK OF HE ART (test code = DISEASEPublishe d by Cholesterol Total) [place] [employer] Lashawn lyte Optimal Borderl ine [...] LDL/HDL Ratio=L DL Calc/HDL Chol Comprehensive Metabolic [id number] 18:09:30 Test Item Value Reference Range Interpretation [...] A/G 1.6 ratio N Ratio) Comprehensive Metabolic [id number] 18:09:30 Test Item Value Reference Range Interpretation [...] National Kidney Foundation, [email or web address] [email or web address] Comprehensive Metabolic [id number] 18:09:30 Test Item Value Reference Range Interpretation [...] Foundation, [email or web address] [email or web address] Complete Blood Count with [id number] 17:49:02 Test Item Value Reference Range Interpretation [...] code = IPF) 0 % N Automated [id number] 17:49:02 Test Item Value Reference Range Interpretation Comments Neutro Auto (test code = Neutro 60.9 % 36.0-70.0 Auto) Lymph Auto (test code = Lymph Auto) 28.2 % 12.0-44.0 Mcpherson Auto (test code = Mcpherson Auto) 8.0 % 0.0-11.0 Eos, Auto (test code = Eos, Auto) 1.7 % 0.0-7.0 Basophil Auto (test code = Basophil 0.7 % 0.0-2.0 Auto) Neutro Absolute (test code = Neutro 8.0 x10 1.6-7.4 H Absolute) Lymph Absolute (test code = Lymph 3.71 x10 .50-4.60 Absolute) Mcpherson Absolute (test code = Mcpherson 1.06 x10 .00-1.20 Absolute) Eos Absolute (test code = Eos 0.23 x10 0.00-0.74 Absolute) Baso Absolute (test code = Baso 0.09 x10 0.00-0.21 Absolute) IG [id number] 17:49:02 Test Item Value Reference Range Interpretation Comments IG (test code = IG) 0.5 % 0.0-5.0 IG Abs (test code = IG Abs) 0 x10 N Comprehensive Metabolic [id number] 13:30:37 Test Item Value Reference Range Interpretation [...] ratio N = A/G Ratio) Comprehensive Metabolic [id number] 13:30:37 Test Item Value Reference Range Interpretation [...] the National Kidney Foundation, [email or web address] [email or web address] Alcohol [id number] 13:30:37 Test Item Value Reference Range Interpretation Comments Ethanol Level (test <0.00 g/dL 0.00-0.01 Intoxica annita 0.080 g/dL code = Ethanol or more Level) Ethanol Inst (test <0 N code = Ethanol Inst) Comprehensive Metabolic [id number] 13:30:37 Test Item Value Reference Range Interpretation [...] Foundation, [email or web address] [email or web address] Drugs of Abuse Urine 13:26:52 Test Item Value Reference Range Interpretation [...] Cannabinoid Screen Ur) Complete Blood Count with [id number] 13:17:47 Test Item Value Reference Range Interpretation [...] code = IPF) 0 % N Automated [id number] 13:17:47 Test Item Value Reference Range Interpretation Comments Neutro Auto (test code = Neutro 67.8 % 36.0-70.0 Auto) Lymph Auto (test code = Lymph Auto) 22.2 % 12.0-44.0 Mcpherson Auto (test code = Mcpherson Auto) 7.3 % 0.0-11.0 Eos, Auto (test code = Eos, Auto) 1.4 % 0.0-7.0 Basophil Auto (test code = Basophil 0.7 % 0.0-2.0 Auto) Neutro Absolute (test code = Neutro 10.6 x10 1.6-7.4 H Absolute) Lymph Absolute (test code = Lymph 3.48 x10 .50-4.60 Absolute) Mcpherson Absolute (test code = Mcpherson 1.14 x10 .00-1.20 Absolute) Eos Absolute (test code = Eos 0.22 x10 0.00-0.74 Absolute) Baso Absolute (test code = Baso 0.11 x10 0.00-0.21 Absolute) IG [id number] 13:17:47 Test Item Value Reference Range Interpretation Comments IG (test code = IG) 0.6 % 0.0-5.0 IG Abs (test code = IG Abs) 0 x10 N
[2021-05-10 14:17] LABS: Absolute Lymphocytes (CBC) 0.8 K/uL (0.7-4.9); Hematocrit 31.2 % (39.6-49.0); Lymphocytes % 5.5 % (15.3-44.8); MPV 6.6 fL (7.6-11.3); RBC Red Blood Cell Count 4.36 M/uL (4.33-5.43)
[2021-05-10] MEDS ORDERED: NA CHLORIDE 0.9% 1,000 ML ONE ×2 (14:32→16:19)
[2021-05-10 14:37] LABS: Protime INR 1.52
[2021-05-10 15:44] LABS: Urine Bacteria 20-50 /HPF (NONE SEEN); Urine Mucus HEAVY /HPF (NONE SEEN); Urine RBC <5 /HPF (NONE SEEN)
[2021-05-10] MEDS ORDERED: ONDANSETRON 4 MG/2 ML VIAL ONE (16:25)
[2021-05-10] MEDS ORDERED: FENTANYL CITR 100 MCG/2 ML ONE (16:25)
[2021-05-10 17:46] LABS: Hematocrit 29.4 % (39.6-49.0); MPV 6.7 fL (7.6-11.3); RBC Red Blood Cell Count 4.05 M/uL (4.33-5.43)
[2021-05-10 17:58] LABS: Albumin 2.1 g/dL (3.4-5.0); Bilirubin Direct 0.2 mg/dL (0-0.2); Bilirubin Total 0.3 mg/dL (0.2-1.0); CKMB Creatine Kinase MB 1.2 ng/mL (1.0-3.6); Potassium 4.7 mmol/L (3.5-5.1); Protein, Total 7.8 g/dL (6.4-8.2)
[2021-05-10 18:02] LABS: Troponin High Sensitivity 248.4 pg/mL (<58.9)
[2021-05-10] MEDS ORDERED: NA CHLORIDE 0.9% 500 ML ONE (18:04)
--- NOTE | 2021-05-10 18:31 | ER ---
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 Upon arrival to ER pt has open wound to groin. Pt states, "This is due to HPV.". Coronavirus screen: At this time, the client does not indicate any symptoms associated with coronavirus-19. Ebola Screen: No symptoms or risks identified at this time. Initial Sepsis Screen: Does the patient meet any 2 criteria? No. Patient's initial sepsis screen is negative. Does the patient have a suspected source of infection? Yes: Skin breakdown/wound. Risk Assessment: Do you want to hurt yourself or someone else?. Onset of symptoms was May 10, 2021. 14:50 Method Of Arrival: EMS: [facility] ld1 14:50 Acuity: IRINEO 3 ld1 Triage Assessment: 14:52 General: Appears in no apparent distress. uncomfortable, Behavior is cooperative, ld1 appropriate for age, anxious. Pain: Complains of pain in left femoral area Pain does not radiate. Pain currently is 8 out of 10 on a pain scale. Quality of pain is described as sharp, throbbing, Pain began gradually, Is continuous. EENT: No signs and/or symptoms were reported regarding the EENT system. Neuro: Level of Consciousness is awake, alert, obeys commands, Oriented to person, place, time, situation. Cardiovascular: Capillary refill < 3 seconds Patient's skin is warm and dry. Rhythm is sinus tachycardia. Respiratory: Airway is patent Respiratory effort is even, unlabored, Respiratory pattern is regular, symmetrical. GI: Abdomen is obese. : No signs and/or symptoms were reported regarding the genitourinary system. Derm: Wound noted left femoral area Wound is Open and bleeding in groin area. Pt states it has progressively gotten worse over the past month. Musculoskeletal: No signs and/or symptoms reported regarding the musculoskeletal system. 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 - Social history:: Patient/guardian denies using alcohol, street drugs, The patient lives with family, Smoking status: Patient reports the use of cigarette tobacco products, smokes one pack cigarettes per day. Patient uses alcohol. - Family history:: not pertinent. Screenin:57 Abuse screen: Denies threats or abuse. Denies injuries from another. Nutritional ld1 screening: No deficits noted. Tuberculosis screening: No symptoms or risk factors identified. Fall Risk None identified. Assessment: 14:57 Reassessment: See triage assessment. ld1 15:00 General: Appears uncomfortable. Neuro: Level of Consciousness is awake, alert, obeys commands, Oriented to person, place, time, situation. Cardiovascular: Denies chest pain, shortness of breath. Respiratory: Airway is patent Respiratory effort is even, unlabored, Respiratory pattern is regular, symmetrical, wears home oxygen at home. 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 Wound is kondilomi with bleeding present and open. 15:55 Reassessment: Patient appears in no apparent distress at this time. Patient and/or ld1 family updated on plan of care and expected duration. Pain level reassessed. 16:50 Reassessment: Patient appears in no apparent distress at this time. No changes from ww previously documented assessment. Patient and/or family updated on plan of care and expected duration. Pain level reassessed. 17:56 Reassessment: Patient appears in no apparent distress at this time. No changes from ww previously documented assessment. Patient and/or family updated on plan of care and expected duration. Pain level reassessed. 18:31 Reassessment: Patient appears in no apparent distress at this time. No changes from ww previously documented assessment. Patient and/or family updated on plan of care and expected duration. Pain level reassessed. patient states he is starting to feel better and not dizzy anymore. 1 unit of PRBC started. Vital Signs: 14:50 BP 100 / 48; Pulse 121; Resp 18; Pulse Ox 92% on 4 lpm NC; Weight 104.33 kg; Height 5 ld1 ft. 8 in. (172.72 cm); Pain 8/10; 14:52 BP 81 / 45; Pulse 111; Resp 20; Pulse Ox 100% on 4 lpm NC; ld1 15:55 BP 89 / 40; Pulse 107; Resp 20; Pulse Ox 90% on 4 lpm NC; ld1 17:54 BP 101 / 60; Pulse 115; Resp 20; Pulse Ox 85% on R/A; ld1 18:45 BP 91 / 64; Pulse 106; Resp 18; Pulse Ox 92% on R/A; ww 14:50 Body Mass Index 34.97 (104.33 kg, 172.72 cm) ld1 17:54 Pt refusing to wear NC - notified patient of low SpO2 states "I don't care." ld1 ED Course: 13:34 Patient arrived in ED. bd 13:34 Charlotte Evans MD is Attending Physician. ma2 14:20 Trina Carvalho, RN is Primary Nurse. ww 14:30 Amylase, Serum Sent. ww 14:46 Bb Add On Sent. ww 14:50 Basic Metabolic Panel Sent. ww 14:50 CBC with Diff Sent. ww 14:50 Hepatic Function Sent. ww 14:50 Lipase Sent. ww 14:52 Triage completed. ld1 14:52 Arm band placed on right wrist. ld1 14:57 No provider procedures requiring assistance completed. Inserted saline lock: 20 gauge ld1 in right forearm, using aseptic technique. 14:57 Patient has correct armband on for positive identification. Placed in gown. Bed in low ld1 position. Call light in reach. Side rails up X2. quality assurance monitor on. Pulse ox on. NIBP on. Door closed. Noise minimized. Warm blanket given. 17:50 Consent for blood and/or blood product transfusion explained by staff, explained by physician, signed by patient, signed by guardian. 18:30 Lito Chao MD is Hospitalizing Provider. ma2 19:18 SARS-COV-2 RT PCR (Document "Date of Onset" if Symptomatic) Sent. st05/11 07:01 Primary Nurse role handed off by Wood, Trina, RN eb Administered Medications: 05/10 14:35 Drug: NS 0.9% 1000 ml Route: IV; Rate: 1 bolus; Site: left antecubital; ww 16:30 Drug: NS 0.9% 1000 ml Route: IV; Rate: 1 bolus; Site: right antecubital; ww 16:32 Drug: fentaNYL (PF) 50 mcg Route: IVP; Site: right antecubital; ww 16:37 Drug: Zofran (Ondansetron) 4 mg Route: IVP; Site: right antecubital; ww Outcome: 18:30 Decision to Hospitalize by Provider. rickie 05/11 12:09 Patient left the ED. jg9 Signatures: Colleen Pineda Mohammad, MD MD ok2 April Amezquita Lauren RN RN ld1 Ilana Adamson RN RN jg9 Trina Carvalho RN RN ww Abigail Salazar RN RN st1
--- NOTE | 2021-05-10 18:31 | EDPHYS ---
Physician Documentation [facility] Name: Yassine Guerrero Jr Age: 45 yrs Sex: Male : 1975 Arrival Date: 05/10/2021 Time: 13:34 Bed 6 Private MD: ED Physician Charlotte Evans HPI: 05/10 14:28 This 45 yrs old Male presents to ER via Unassigned with complaints of Left groin mass ma2 bleeding. 14:28 Onset: The symptoms/episode began/occurred suddenly, 2 hour(s) ago. Associated signs ma2 and symptoms: Pertinent negatives: dysuria, headache, incontinence. Severity of symptoms: At their worst the symptoms were mild, in the emergency department the symptoms have improved. Patient had bleeding from the left groin HPV mass, happened earlier this morning, resolved at this point, patient feels dizzy. He said he lost a lot of blood. Patient is being evaluated for mass at [facility], he was transferred from our hospital to [facility] weeks ago, where they evaluated him, and they arrange for an outpatient biopsy. Which has not been done yet. 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 - Social history:: Patient/guardian denies using alcohol, street drugs, The patient lives with family, Smoking status: Patient reports the use of cigarette tobacco products, smokes one pack cigarettes per day. Patient uses alcohol. - Family history:: not pertinent. ROS: 14:28 Constitutional: Negative for fever, chills, and weight loss. ma2 14:28 All other systems are negative. Exam: 14:28 Constitutional: This is a well developed, well nourished patient who is awake, alert, ma2 and in no acute distress. Head/Face: Normocephalic, atraumatic. Eyes: Pupils equal round and reactive to light, extra-ocular motions intact. Lids and lashes normal. Conjunctiva and sclera are non-icteric and not injected. Cornea within normal limits. Periorbital areas with no swelling, redness, or edema. ENT: Nares patent. No nasal discharge, no septal abnormalities noted. Tympanic membranes are normal and external auditory canals are clear. Oropharynx with no redness, swelling, or masses, exudates, or evidence of obstruction, uvula midline. Mucous membranes moist. Neck: Trachea midline, no thyromegaly or masses palpated, and no cervical lymphadenopathy. Supple, full range of motion without nuchal rigidity, or vertebral point tenderness. No Meningismus. Chest/axilla: Normal chest wall appearance and motion. Nontender with no deformity. No lesions are appreciated. Cardiovascular: Regular rate and rhythm with a normal S1 and S2. No gallops, murmurs, or rubs. Normal PMI, no JVD. No pulse deficits. Respiratory: Lungs have equal breath sounds bilaterally, clear to auscultation and percussion. No rales, rhonchi or wheezes noted. No increased work of breathing, no retractions or nasal flaring. Abdomen/GI: Left groin granulating mass, no active bleeding at this time. Soft, non-tender, with normal bowel sounds. No distension or tympany. No guarding or rebound. No evidence of tenderness throughout. Skin: Warm, dry with normal turgor. Normal color with no rashes, no lesions, and no evidence of cellulitis. MS/ Extremity: Pulses equal, no cyanosis. Neurovascular intact. Full, normal range of motion. Neuro: Awake and alert, GCS 15, oriented to person, place, time, and situation. Cranial nerves II-XII grossly intact. Motor strength 5/5 in all extremities. Sensory grossly intact. Cerebellar exam normal. Normal gait. Vital Signs: 14:50 BP 100 / 48; Pulse 121; Resp 18; Pulse Ox 92% on 4 lpm NC; Weight 104.33 kg; Height 5 ld1 ft. 8 in. (172.72 cm); Pain 8/10; 14:52 BP 81 / 45; Pulse 111; Resp 20; Pulse Ox 100% on 4 lpm NC; ld1 15:55 BP 89 / 40; Pulse 107; Resp 20; Pulse Ox 90% on 4 lpm NC; ld1 17:54 BP 101 / 60; Pulse 115; Resp 20; Pulse Ox 85% on R/A; ld1 18:45 BP 91 / 64; Pulse 106; Resp 18; Pulse Ox 92% on R/A; ww 14:50 Body Mass Index 34.97 (104.33 kg, 172.72 cm) ld1 17:54 Pt refusing to wear NC - notified patient of low SpO2 states "I don't care." ld1 MDM: 13:36 Patient medically screened. ma2 18:20 Differential diagnosis: Patient has a chronic HPV mass left groin, which is unchanged, ma2 no active bleeding at this time, however patient lost large amount of blood, was initially hypotensive, blood pressure is normal at this time. Lactate was ten, trended down to four after IV fluid, elevation in high-sensitivity troponin, elevation in white count. Likely due to initial hypertensive episode. Hemoglobin dropped from 9-8, I discussed with Dr. Chao, will transfuse 1 unit of packed RBC, recheck hemoglobin, if hemoglobin is above eight and vital signs are normal hold off the second unit transfusion. Dr. Chao will see tomorrow morning. Data reviewed: vital signs, nurses notes, EMS record. Counseling: I had a detailed discussion with the patient and/or guardian regarding: the historical points, exam findings, and any diagnostic results supporting the discharge/admit diagnosis, radiology results, the need for further work-up and treatment in the hospital. Response to treatment: the patient's symptoms have markedly improved after treatment. 05/10 13:36 Order name: Basic Metabolic Panel [facility] 05/10 13:36 Order name: CBC with Diff [facility] 05/10 13:36 Order name: Hepatic Function [facility] 05/10 13:36 Order name: Lipase [facility] 05/10 13:36 Order name: Amylase, Serum [facility] 05/10 13:36 Order name: Blood Culture Adult (2) [facility] 05/10 13:36 Order name: CPK; Complete Time: 18:14 [facility] 05/10 13:36 Order name: Ckmb; Complete Time: 18:14 [facility] 05/10 13:36 Order name: Lactate; Complete Time: 16:15 [facility] 05/10 13:36 Order name: Procalcitonin; Complete Time: 16:15 [facility] 05/10 13:36 Order name: Protime (+inr); Complete Time: 14:52 [facility] 05/10 13:36 Order name: Ptt, Activated; Complete Time: 14:52 ma2 05/10 13:36 Order name: Troponin HS; Complete Time: 18:14 nc2 05/10 13:36 Order name: Urine Microscopic Only; Complete Time: 16:15 ma2 05/10 13:37 Order name: Basic Metabolic Panel; Complete Time: 18:14 EDMS 05/10 13:37 Order name: CBC with Automated Diff [facility] 05/10 13:37 Order name: Liver (Hepatic) Function; Complete Time: 18:14 EDMS 05/10 13:37 Order name: Lipase; Complete Time: 18:14 EDMS 05/10 13:37 Order name: Amylase; Complete Time: 18:14 EDMS 05/10 14:16 Order name: Glucose, Ancillary Testing [facility] 05/10 14:21 Order name: Type And Screen bd 05/10 14:22 Order name: Bb Add On bd 05/10 14:59 Order name: Packed RBC Leukored [facility] 05/10 15:45 Order name: Urine Culture [facility] 05/10 16:15 Order name: CBC w/o diff; Complete Time: 18:14 nc2 05/10 17:54 Order name: Lactate Sepsis 2 HR Follow-up; Complete Time: 18:14 EDMS 05/10 18:39 Order name: Basic Metabolic Panel [facility] 05/10 18:39 Order name: Basic Metabolic Panel [facility] 05/10 18:39 Order name: CBC with Automated Diff [facility] 05/10 13:36 Order name: IV Saline Lock; Complete Time: 14:47 nc2 05/10 13:36 Order name: Labs collected and sent; Complete Time: 14:47 nc2 05/10 13:36 Order name: Accucheck; Complete Time: 14:47 nc2 05/10 13:36 Order name: Cardiac monitoring; Complete Time: 13:53 ma2 05/10 13:36 Order name: EKG - Nurse/Tech; Complete Time: 14:30 ma2 05/10 13:36 Order name: IV Saline Lock - Large Bore; Complete Time: 13:53 ma05/10 13:36 Order name: O2 Per Protocol; Complete Time: 13:53 ma05/10 13:36 Order name: O2 Sat Monitoring; Complete Time: 13:53 05/10 13:36 Order name: Urine Dipstick-Ancillary (obtain specimen); Complete Time: 15:14 ma2 05/10 18:20 Order name: Transfuse: Transfuse 1 unit packed RBC, then recheck H\\T\\H. If hemoglobin is ma2 more than eight; Complete Time: 18:31 05/10 18:39 Order name: 60g Consistent Carbohydrate (ADA 1800/2000) [facility] 05/10 18:39 Order name: EKG Electrocardiogram [facility] 05/10 18:39 Order name: EKG Electrocardiogram [facility] 05/10 18:39 Order name: EKG Electrocardiogram [facility] 05/10 18:39 Order name: EKG Electrocardiogram [facility] 05/10 18:39 Order name: CBC with Automated Diff [facility] 05/10 18:57 Order name: SARS-COV-2 RT PCR (Document "Date of Onset" if Symptomatic) iw 05/10 20:46 Order name: CBC Smear Scan EDMS 05/10 20:59 Order name: SARS-COV-2 RT PCR EDMS Administered Medications: 14:35 Drug: NS 0.9% 1000 ml Route: IV; Rate: 1 bolus; Site: left antecubital; ww 16:30 Drug: NS 0.9% 1000 ml Route: IV; Rate: 1 bolus; Site: right antecubital; ww 16:32 Drug: fentaNYL (PF) 50 mcg Route: IVP; Site: right antecubital; ww 16:37 Drug: Zofran (Ondansetron) 4 mg Route: IVP; Site: right antecubital; ww Disposition Summary: 05/10/21 18:30 Hospitalization Ordered Hospitalization Status: Inpatient Admission ma2 Provider: Lito Chao Condition: Stable ma2 Problem: new ma2 Symptoms: are unchanged ma2 Bed/Room Type: Standard ma2 Location: Telemetry/MedSurg (Inpatient)(05/11/21 10:15) eb Room Assignment: 411(05/11/21 10:15) eb Diagnosis - Abdominal pain, unspecified - with external bleeding, resolved ma2 Forms: - Medication Reconciliation Form ma2 - SBAR form ma2 Signatures: Dispatcher [employer] EDFL Yolanda Nevarez RN RN Charlotte Cash MD MD ma2 April Amezquita Lauren, RN RN ld1 Trina Carvalho RN RN ww Corrections: (The following items were deleted from the chart) 13:38 13:37 BASIC METABOLIC PANEL+C.LAB.BRZ ordered. EDMS EDMS 14:52 14:28 Constitutional: This is a well developed, well nourished patient who is awake, ma2 alert, and in no acute distress. Head/Face: Normocephalic, atraumatic. Eyes: Pupils equal round and reactive to light, extra-ocular motions intact. Lids and lashes normal. Conjunctiva and sclera are non-icteric and not injected. Cornea within normal limits. Periorbital areas with no swelling, redness, or edema. ENT: Nares patent. No nasal discharge, no septal abnormalities noted. Tympanic membranes are normal and external auditory canals are clear. Oropharynx with no redness, swelling, or masses, exudates, or evidence of obstruction, uvula midline. Mucous membranes moist. Neck: Trachea midline, no thyromegaly or masses palpated, and no cervical lymphadenopathy. Supple, full range of motion without nuchal rigidity, or vertebral point tenderness. No Meningismus. Chest/axilla: Normal chest wall appearance and motion. Nontender with no deformity. No lesions are appreciated. Cardiovascular: Regular rate and rhythm with a normal S1 and S2. No gallops, murmurs, or rubs. Normal PMI, no JVD. No pulse deficits. Respiratory: Lungs have equal breath sounds bilaterally, clear to auscultation and percussion. No rales, rhonchi or wheezes noted. No increased work of breathing, no retractions or nasal flaring. Abdomen/GI: Soft, non-tender, with normal bowel sounds. No distension or tympany. No guarding or rebound. No evidence of tenderness throughout. Skin: Warm, dry with normal turgor. Normal color with no rashes, no lesions, and no evidence of cellulitis. MS/ Extremity: Pulses equal, no cyanosis. Neurovascular intact. Full, normal range of motion. Neuro: Awake and alert, GCS 15, oriented to person, place, time, and situation. Cranial nerves II-XII grossly intact. Motor strength 5/5 in all extremities. Sensory grossly intact. Cerebellar exam normal. Normal gait. [facility] 21:10 18:30 Telemetry/MedSurg (Inpatient) [facility] 21:10 18:30 ma2 mw 05/11 10:15 05/10 21:10 [facility] mw eb 05/11 10:05/10 [facility]
[2021-05-10 20:45] LABS: Platelet Estimate INCR; White Blood Cell Scan OK (OK)
[2021-05-10 20:46] LABS: Anisocytosis 3+; Blood Morphology Comment NOTED (NOT SEEN); Hypochromasia 1+; Ovalocytes 1+; Poikilocytosis 1+; Polychromasia 1+
[2021-05-10] MEDS ORDERED: NA CHLORIDE 0.9% 250 ML ONE (20:59)
[2021-05-10] MEDS ORDERED: HYDROMORPHONE HCL 1 MG/ML INJ ONE (21:56)
[2021-05-10] MEDS: HYDROMORPHONE HCL 1 MG/ML INJ IV PRN (21:58)
[2021-05-11] MEDS ORDERED: HYDROMORPHONE HCL 1 MG/ML INJ ONE ×2 (01:52→11:05)
[2021-05-11] MEDS: HYDROMORPHONE HCL 1 MG/ML INJ IV PRN ×4 (01:58→22:28)
[2021-05-11 03:56] VITALS: BMI 34.7
[2021-05-11 04:48] LABS: Hematocrit 31.7 % (39.6-49.0); MPV 6.6 fL (7.6-11.3); RBC Red Blood Cell Count 4.44 M/uL (4.33-5.43)
[2021-05-11 04:57] LABS: BUN Blood Urea Nitrogen 21 mg/dL (7-18); Bicarbonate 26 mmol/L (21-32); Glucose Level 125 mg/dL (74-106); Potassium 4.3 mmol/L (3.5-5.1); Sodium Level 133 mmol/L (136-145)
[2021-05-11] MEDS ORDERED: FUROSEMIDE 40 MG/4 ML VIAL IV ONE (07:55)
[2021-05-11] MEDS ORDERED: MORPHINE *EXTENDED RELEASE* 15 MG TAB PO ONE (08:34)
[2021-05-11] MEDS ORDERED: ASPIRIN EC 81 MG TAB PO ONE (08:34)
[2021-05-11] MEDS ORDERED: GABAPENTIN 300 MG CAP ONE (08:57)
[2021-05-11] MEDS ORDERED: FUROSEMIDE 40 MG/4 ML VIAL ONE (08:58)
[2021-05-11] MEDS: ASPIRIN EC 81 MG TAB PO SCH (09:00)
[2021-05-11] MEDS: MORPHINE *EXTENDED RELEASE* 15 MG TAB PO SCH ×2 (09:00→21:12)
[2021-05-11] MEDS: GABAPENTIN 300 MG CAP PO SCH ×3 (09:00→21:12)
--- NOTE | 2021-05-11 14:31 | RAD REPORT ---
EXAM DESCRIPTION: Woody Single View05/11/2021 1:29 pm CLINICAL HISTORY: Chest pain COMPARISON: March 2021 FINDINGS: Lungs are mildly hazy. Heart is mildly enlarged IMPRESSION: Lungs are mildly hazy. Mild bilateral pneumonia suspected
--- NOTE | 2021-05-11 21:15 | P.HP ---
Certification for Inpatient Patient admitted to: Inpatient With expected LOS: >2 Midnights Patient will require the following post-hospital care: None Practitioner: I am a practitioner with admitting privileges, knowledge of patient current condition, hospital course, and medical plan of care. 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 He has a history of groin mass. The patient came to the ER complainting of pain and bleeding. He was stable Recieved a unit of blood. Was found to be covid positive. He also had an elevation of his rapid troponin level. The pateints oxygen level was normal. However her had active wheezing and was admitted to the hospital Allergies No Known Allergies Allergy (Verified 11/07/20 22:07) Home Medications: Ciprofloxacin HCl [Cipro 500 MG Tablet] 500 mg PO BID #14 tab 11/09/20 Gabapentin 300 mg PO TID #90 capsule 11/09/20 Glipizide [Glipizide ER] 5 mg PO DAILY #30 tab.er.24 11/09/20 Hydrocodone 10/APAP 325 [[place] 10/325*] 2 tab PO Q4H PRN #60 tab 11/09/20 Metformin HCl 500 mg PO BID #60 tablet 11/09/20 Sodium Hypochlorite [Dakin's] 473 ml MC DAILY #1 bottle 11/09/20 metroNIDAZOLE [Flagyl*] 500 mg PO Q8H #21 tablet 11/09/20 Surgicel 1 unit TOP PRN #5 11/10/20 Sulfamethoxazole/Trimethoprim [Bactrim Ds Tablet] 1 each PO BID 7 Days #14 tablet 12/29/20 Nitrofurantoin Monohyd/M-Cryst [Macrobid 100 mg Capsule] 100 mg PO TID 3 Days #9 capsule 03/28/21 - Past Medical/Surgical History Diabetic: Yes -: Diabetes mellitus -: Rheumatoid Arthritis -: COPD -: Sleep Apnea -: None - Social History Alcohol use: No CD- Drugs: No Caffeine use: No Review of Systems 10-point ROS is otherwise unremarkable Respiratory: Shortness of Breath Integumentary: As per HPI Physical Examination - Vital Signs Temperature: 97.3 F Blood Pressure: 112/61 Pulse: 98 Respirations: 18 Pulse Ox (%): 97 - Physical Exam General: Alert, In no apparent distress HEENT: Atraumatic, PERRLA, Mucous membr. moist/pink, EOMI, Sclerae nonicteric Neck: Supple, 2+ carotid pulse no bruit, No LAD, Without JVD or thyroid abnormality Respiratory: Normal air movement, Expiratory wheezes Cardiovascular: Regular rate/rhythm, Normal S1 S2 Gastrointestinal: Normal bowel sounds, No tenderness Musculoskeletal: No tenderness Integumentary: No rashes, Other (fungated left inguinal mass) Neurological: Normal gait, Normal speech, Normal strength at 5/5 x4 extr, Normal tone, Normal affect Lymphatics: No axilla or inguinal lymphadenopathy Assessment and Plan - Problems (Diagnosis) (1) COVID Current Visit: Yes Status: Acute Plan: will keep the patient in house will consider steroids. However the patient is currently stable. If he continues to maintain his oxygen. Remains afebrile we can discharge him. The rapid troponin is not likely to be due to inflammation. Dr. Woodson recomends a echo to rule out and cardiac dysfunction. (2) DM type 2 (diabetes mellitus, type 2) Current Visit: No Status: Chronic Plan: will restart his metformin in the am Qualifiers: Diabetes mellitus fdc insulin use: without terminal supervisor use Diabetes mellitus complication status: without complication Qualified Code(s): E11.9 - Type 2 diabetes mellitus without complications (3) Inguinal mass Current Visit: No Status: Chronic Plan: He needs a outpatient biopsy Unfortunately this will have to wait now that he has a covid diagnosis by 10day Discharge Plan: Home - Advance Directives Does patient have a Living Will: No Does patient have a Durable POA for Healthcare: No - Code Status/Comfort Care Code Status Assessed: No Physician Review: Patient Assessed, Agree with Above Assessment and Plan Critical Care: No Time Spent Managing Pts Care (In Minutes): 20
[2021-05-12] MEDS: HYDROMORPHONE HCL 1 MG/ML INJ IV PRN ×4 (03:41→21:04)
[2021-05-12] MEDS: MORPHINE *EXTENDED RELEASE* 15 MG TAB PO SCH ×2 (08:03→22:27)
[2021-05-12] MEDS: GABAPENTIN 300 MG CAP PO SCH ×3 (08:07→21:03)
[2021-05-12] MEDS: ASPIRIN EC 81 MG TAB PO SCH (08:07)
--- NOTE | 2021-05-12 10:46 | P.CNS ---
Date of Consult: 05/12/21 Primary Care Provider: Zhanna Chief Complaint: covid positive History of Present Illness: Patient is 45 years of age admitted with some bleeding he has a large fungating mass in the left groin seen by Dr. Sosa so far no evidence of any malignancy he is HPV positive also coronavirus positive he is mildly hypoxic chest x-ray shows bilateral pulmonary infiltrate he denies any shortness of breath quiring some oxygen not been vaccinated Allergies No Known Allergies Allergy (Verified 11/07/20 22:07) Home Medications: Ciprofloxacin HCl [Cipro 500 MG Tablet] 500 mg PO BID #14 tab 11/09/20 Gabapentin 300 mg PO TID #90 capsule 11/09/20 Glipizide [Glipizide ER] 5 mg PO DAILY #30 tab.er.24 11/09/20 Hydrocodone 10/APAP 325 [[place]oy 10/325*] 2 tab PO Q4H PRN #60 tab 11/09/20 Metformin HCl 500 mg PO BID #60 tablet 11/09/20 Sodium Hypochlorite [Dakin's] 473 ml MC DAILY #1 bottle 11/09/20 metroNIDAZOLE [Flagyl*] 500 mg PO Q8H #21 tablet 11/09/20 Surgicel 1 unit TOP PRN #5 11/10/20 Sulfamethoxazole/Trimethoprim [Bactrim Ds Tablet] 1 each PO BID 7 Days #14 tablet 12/29/20 Nitrofurantoin Monohyd/M-Cryst [Macrobid 100 mg Capsule] 100 mg PO TID 3 Days #9 capsule 03/28/21 - Past Medical/Surgical History Diabetic: Yes -: Diabetes mellitus -: Rheumatoid Arthritis -: COPD -: Sleep Apnea -: COVID-positive -: None - Social History Smoking Status: Current every day smoker Alcohol use: No CD- Drugs: No Caffeine use: No Review of Systems 10-point ROS is otherwise unremarkable Physical Examination Temp Pulse Resp BP Pulse Ox 97.4 F 98 H 18 117/56 L 90 L 05/12/21 08:00 05/12/21 08:00 05/12/21 08:03 05/12/21 08:00 05/12/21 08:03 General: Alert, In no apparent distress, Oriented x3 Neck: Supple Respiratory: Expiratory wheezes - Problems (1) 2019 novel coronavirus-infected pneumonia (NCIP) Current Visit: Yes Status: Acute Plan: Patient is 45 years of age admitted with coronavirus pneumonia is not start patient on p.o. dexamethasone abnormal liver function tests troponin is also elevated lactic acid is also white count is possibility of sepsis add Augmentin and p.o. doxycycline patient had some bleeding from the mass microcytic anemia ferritin level low transfuse some iron possibility of myocardial injury it appears that he may have had some acute liver injury alkaline phosphatase is also elevated hepatitis profile and repeat liver function test ordered
[2021-05-12] MEDS: dexAMETHasone 4 MG TAB PO SCH ×2 (11:04→21:03)
[2021-05-12] MEDS: DOXYCYCLINE 100 MG CAP PO SCH ×2 (11:04→21:03)
[2021-05-12] MEDS: AMOX/K CLAV 500 MG TAB PO SCH ×2 (11:04→21:03)
[2021-05-12] MEDS: SOD FERRIC GLUC COMPLX/SUCROSE 250 MG in NA CHLORIDE 0.9% 250 ML IV SCH (12:03)
--- NOTE | 2021-05-12 12:37 | P.PN ---
Subjective Date of Service: 05/12/21 Primary Care Provider: Zhanna Chief Complaint: covid positive Subjective: No new changes Review of Systems 10-point ROS is otherwise unremarkable Integumentary: Other (Bleeding from the left groin wound) Physical Examination - Vital Signs Temperature: 97.4 F Blood Pressure: 117/56 Pulse: 98 Respirations: 18 Pulse Ox (%): 90 - Physical Exam General: Alert, In no apparent distress HEENT: Atraumatic, PERRLA, EOMI Neck: Supple, JVD not distended Respiratory: Clear to auscultation bilaterally, Normal air movement Cardiovascular: Regular rate/rhythm, Normal S1 S2 Gastrointestinal: Normal bowel sounds, No tenderness Musculoskeletal: No tenderness Integumentary: No rashes Neurological: Normal speech, Normal tone, Normal affect Lymphatics: No axilla or inguinal lymphadenopathy - Studies Microbiology Data (last 24 hrs): 05/10/21 15:15 Clean Catch Urine [place] Count - Final <10,000 CFU/ML. 05/10/21 15:15 Clean Catch Urine - Final MIXED ADIA. Assessment & Plan - Problems (Diagnosis) (1) COVID Current Visit: Yes Status: Acute Plan: will keep the patient in house will consider steroids. However the patient is currently stable. If he continues to maintain his oxygen. Remains afebrile we can discharge him. The rapid troponin is not likely to be due to inflammation. Dr. Woodson recomends a echo to rule out and cardiac dysfunction. (2) DM type 2 (diabetes mellitus, type 2) Current Visit: No Status: Chronic Plan: will restart his metformin in the am Qualifiers: Diabetes mellitus residential insulin use: without termite renewal inspector use Diabetes mellitus complication status: without complication Qualified Code(s): E11.9 - Type 2 diabetes mellitus without complications (3) Inguinal mass Current Visit: No Status: Chronic Plan: He needs a outpatient biopsy Unfortunately this will have to wait now that he has a covid diagnosis by 10day (4) Troponin level elevated Current Visit: Yes Status: Acute Plan: Discussed with Dr. Centeno yesterday. Not planning on a cath. This new highly sensitive troponin is elevated. However anticoagulation is a problem with this patient. He is currently oozing from his groin mass and has required ashby sfusions every few months. So he is a high bleeding risk. Dr. Centeno suggested we check an echocardiogram on the patient, (5) Liver function test abnormality Current Visit: Yes Status: Acute Plan: will continue fluids and antbiotics. may be sequela of the mass, covid or an infections. have discussed with Dr. Holt. who has started the patient on steroids and antibiotics. Discharge Plan: Longterm Plan to discharge in: Greater than 2 days - Code Status/Comfort Care Code Status Assessed: No Physician Review: Patient Assessed, Agree with Above Assessment and Plan Critical Care: No Time Spent Managing Pts Care (In Minutes): 30
[2021-05-12 12:59] LABS: Albumin 1.7 g/dL (3.4-5.0); Bilirubin Direct 0.1 mg/dL (0-0.2); Bilirubin Total 0.3 mg/dL (0.2-1.0); Protein, Total 7.1 g/dL (6.4-8.2)
--- NOTE | 2021-05-12 16:41 | CON ---
Date of Consultation: 05/11/2021 Reason For Consultation: Elevated troponin. History Of Present Illness: This is a young male, 45 years of age, history of diabetes, rheumatoid a rthritis, COPD, sleep apnea, presented with a bleeding from the groin and some cough. Denies having any chest pain, found to have elevated troponin, so I was consulted. The patient at the time of my e valuation is chest pain-free. Past Medical History: As outlined above. Medications: Refer reconciliation sheet for detailed list. Allergies: NO KNOWN DRUG ALLERGIES. Family History: No premature coronary artery disease or cancer. Social History: Does not smoke or drink. Does not use any drugs. Review of Systems: All systems reviewed and they were negative except for mentioned in HPI. Physical Examination: Vital Signs: Reviewed. Head and Neck: Pupils are equal, reactive to light. Intact eye movements. No JVD. No swelling of the. Neck: Supple. Thyroid is not enlarged. Lungs: Clear to auscultation bilaterally. No rhonchi, rales, or crackles. No accessory muscle use. Heart: Regular rate and rhythm. No extra sounds. Abdomen: Soft, nontender. Bowel sounds positive. No organomegaly. No masses or hernia. No rigidi ty or rebound. Extremities: No clubbing, cyanosis. Intact pulses. Skin: No rash noted. Neurologic: Alert, awake, oriented x3. No acute focal deficits appreciated. Investigations: Hemoglobin is 9.6. Troponin was 248. Assessment And Recommendation: Elevated troponin. The patient is positive for COVID. Likely this i s troponin leak due to COVID. Obtain echocardiogram. If there are no wall motion abnormalities, the n plan for an outpatient stress test. Recommend aspirin and trend troponin at least 1 more time. Thank you for the consult. /MODL Voice ID: [id number] Report ID: [id number]
--- NOTE | 2021-05-12 21:57 | RAD REPORT ---
EXAM DESCRIPTION: US - Abdomen Exam Complete - 05/12/2021 9:49 pm CLINICAL HISTORY: Abdominal pain COMPARISON: Abdomen Pelvis W Contrast dated 12/26/2020 FINDINGS: No aortic aneurysm. Increased echogenicity of the liver consistent with hepatic steatosis. The portal vein is patent. The IVC at the level of the liver is unremarkable. No ascites. The gallbladder is contracted. No pericholecystic fluid, wall thickening, or gallstones identified. N o biliary ductal dilatation. The pancreas was largely obscured by bowel gas.. The right kidney measures 11.3 cm normal echotexture. No hydronephrosis. No suspicious masses. The left kidney not well visualized. No hydronephrosis The spleen is unremarkable. IMPRESSION: Hepatic steatosis. No hydronephrosis. Negative for cholelithiasis or acute cholecystitis .
[2021-05-13] MEDS: HYDROMORPHONE HCL 1 MG/ML INJ IV PRN ×4 (03:15→23:33)
[2021-05-13 04:49] LABS: Absolute Lymphocytes (CBC) 1.2 K/uL (0.7-4.9); Hematocrit 29.1 % (39.6-49.0); RBC Red Blood Cell Count 4.06 M/uL (4.33-5.43)
[2021-05-13 05:12] LABS: AST/SGOT 285 U/L (15-37); Alkaline Phosphatase 149 U/L (45-117); BUN Blood Urea Nitrogen 10 mg/dL (7-18); Bicarbonate 29 mmol/L (21-32); Bilirubin Total 0.3 mg/dL (0.2-1.0); Glucose Level 197 mg/dL (74-106); Potassium 4.3 mmol/L (3.5-5.1); Protein, Total 7.5 g/dL (6.4-8.2); Sodium Level 138 mmol/L (136-145)
[2021-05-13 05:13] LABS: ALT/SGPT 584 U/L (12-78)
[2021-05-13] MEDS: dexAMETHasone 4 MG TAB PO SCH ×2 (08:17→21:56)
[2021-05-13] MEDS: MORPHINE *EXTENDED RELEASE* 15 MG TAB PO SCH ×2 (08:17→21:54)
[2021-05-13] MEDS: AMOX/K CLAV 500 MG TAB PO SCH ×2 (08:17→21:54)
[2021-05-13] MEDS: ASPIRIN EC 81 MG TAB PO SCH (08:17)
[2021-05-13] MEDS: DOXYCYCLINE 100 MG CAP PO SCH ×2 (08:19→21:56)
[2021-05-13] MEDS: GABAPENTIN 300 MG CAP PO SCH ×3 (08:19→21:56)
[2021-05-13] MEDS: SOD FERRIC GLUC COMPLX/SUCROSE 250 MG in NA CHLORIDE 0.9% 250 ML IV SCH (09:00)
--- NOTE | 2021-05-13 11:54 | P.PN ---
Subjective Date of Service: 05/13/21 Primary Care Provider: Zhanna Chief Complaint: covid positive Subjective: No new changes Review of Systems 10-point ROS is otherwise unremarkable Physical Examination - Vital Signs Temperature: 97.0 F Blood Pressure: 132/77 Pulse: 89 Respirations: 18 Pulse Ox (%): 96 - Physical Exam General: Alert, In no apparent distress HEENT: Atraumatic, PERRLA, EOMI Neck: Supple, JVD not distended Respiratory: Clear to auscultation bilaterally, Normal air movement Cardiovascular: Regular rate/rhythm, Normal S1 S2 Gastrointestinal: Normal bowel sounds, No tenderness Musculoskeletal: No tenderness Integumentary: No rashes Neurological: Normal speech, Normal tone, Normal affect Lymphatics: No axilla or inguinal lymphadenopathy - Studies Microbiology Data (last 24 hrs): 05/10/21 15:15 Clean Catch Urine [place] Count - Final <10,000 CFU/ML. 05/10/21 15:15 Clean Catch Urine - Final MIXED ADIA. Assessment & Plan - Problems (Diagnosis) (1) COVID Current Visit: Yes Status: Acute Plan: will keep the patient in house will consider steroids. However the patient is currently stable. If he continues to maintain his oxygen. Remains afebrile we can discharge him. The rapid troponin is not likely to be due to inflammation. Dr. Woodson recomends a echo to rule out and cardiac dysfunction. 05/13 Afebrile no sob or hypoxia. Will keep him one more day to check an echocardiogram. Will monitor her blood work. (2) DM type 2 (diabetes mellitus, type 2) Current Visit: No Status: Chronic Plan: will restart his metformin in the am Qualifiers: Diabetes mellitus mcfp insulin use: without exterminator use Diabetes mellitus complication status: without complication Qualified Code(s): E11.9 - Type 2 diabetes mellitus without complications (3) Inguinal mass Current Visit: No Status: Chronic Plan: He needs a outpatient biopsy Unfortunately this will have to wait now that he has a covid diagnosis by 10day (4) Troponin level elevated Current Visit: Yes Status: Acute Plan: Discussed with Dr. Centeno yesterday. Not planning on a cath. This new highly sensitive troponin is elevated. However anticoagulation is a problem with this patient. He is currently oozing from his groin mass and has required transfusions every few months. So he is a high bleeding risk. Dr. Centeno suggested we check an echocardiogram on the patient, 03/13 awaiting echocardiogram (5) Liver function test abnormality Current Visit: Yes Status: Acute Plan: will continue fluids and antbiotics. may be sequela of the mass, covid or an infections. have discussed with Dr. Holt. who has started the patient on steroids and antibiotics. 05/13 Patients lft's improving. Continue with steroids. Discharge Plan: Home - Code Status/Comfort Care Code Status Assessed: No Physician Review: Patient Assessed, Agree with Above Assessment and Plan Critical Care: No Time Spent Managing Pts Care (In Minutes): 25
[2021-05-13] MEDS: ENSURE HIGH PROTEIN 237 ML CAN PO SCH (16:03)
[2021-05-14] MEDS: HYDROMORPHONE HCL 1 MG/ML INJ IV PRN ×5 (03:38→22:36)
[2021-05-14 06:24] LABS: Absolute Lymphocytes (CBC) 1.9 K/uL (0.7-4.9); Hematocrit 28.6 % (39.6-49.0); Lymphocytes % 7.3 % (15.3-44.8); MPV 6.8 fL (7.6-11.3); RBC Red Blood Cell Count 3.99 M/uL (4.33-5.43)
--- NOTE | 2021-05-14 07:19 | ECHO ---
HEIGHT: 5 ft 8 in WEIGHT: 228 lb 0 oz DATE OF STUDY: 05/11/[address]: Lito hCao MD 2-DIMENSIONAL: YES M.MODE: YES DOPPLER: YES COLOR FLOW: YES TDS: YES PORTABLE: NO DEFINITY: NO BUBBLE STUDY: NO DIAGNOSIS: ELEVATED TROPONIN CARDIAC HISTORY: CATHERIZATION: NO SURGERY: NO PROSTHETIC VALVE: NO PACEMAKER: NO MEASUREMENTS (cm) DIASTOLIC (NORMALS) SYSTOLIC (NORMALS) IVSd 1.2 (0.6-1.2) LA Diam 3.2 (1.9-4.0) LVEF 55-60% LVIDd 4.5 (3.5-5.7) LVIDs 3.4 (2.0-3.5) %FS 24% LVPWd 1.2 (0.6-1.2) Ao Diam 2.9 (2.0-3.7) 2 DIMENSIONAL ASSESSMENT: RIGHT ATRIUM: NORMAL LEFT ATRIUM: NORMAL RIGHT VENTRICLE: NORMAL LEFT VENTRICLE: NORMAL TRICUSPID VALVE: NORMAL MITRAL VALVE: NORMAL PULMONIC VALVE: NORMAL AORTIC VALVE: NORMAL PERICARDIAL EFFUSION: TRACE AORTIC ROOT: NORMAL LEFT VENTRICULAR WALL MOTION: NORMAL DOPPLER/COLOR FLOW: MILD TRICUSPID REGURGITATION. COMMENTS: NORMAL LEFT VENTRICULAR EJECTION FRACTION 55-60%. NORMAL WALL MOTION. MILD TRICUSPID REGURGITATION. TECHNOLOGIST: Archie CRUZ
[2021-05-14] MEDS: DOXYCYCLINE 100 MG CAP PO SCH ×2 (07:44→21:20)
[2021-05-14] MEDS: GABAPENTIN 300 MG CAP PO SCH ×3 (07:44→21:19)
[2021-05-14] MEDS: ASPIRIN EC 81 MG TAB PO SCH (07:44)
[2021-05-14 07:45] LABS: AST/SGOT 84 U/L (15-37); Alkaline Phosphatase 124 U/L (45-117); BUN Blood Urea Nitrogen 15 mg/dL (7-18); Bicarbonate 28 mmol/L (21-32); Bilirubin Total 0.2 mg/dL (0.2-1.0); Glucose Level 189 mg/dL (74-106); Potassium 4.5 mmol/L (3.5-5.1); Protein, Total 7.2 g/dL (6.4-8.2); Sodium Level 137 mmol/L (136-145)
[2021-05-14] MEDS: AMOX/K CLAV 500 MG TAB PO SCH ×2 (07:45→21:00)
[2021-05-14] MEDS: MORPHINE *EXTENDED RELEASE* 15 MG TAB PO SCH ×2 (07:45→21:20)
[2021-05-14 07:46] LABS: ALT/SGPT 392 U/L (12-78)
[2021-05-14] MEDS: dexAMETHasone 4 MG TAB PO SCH ×2 (07:47→21:19)
[2021-05-14] MEDS: ENSURE HIGH PROTEIN 237 ML CAN PO SCH ×2 (07:47→16:29)
[2021-05-14 08:51] LABS: Platelet Estimate ADEQ
[2021-05-14 08:52] LABS: Anisocytosis 2+; Blood Morphology Comment NOTED (NOT SEEN); Hypochromasia 2+; Platelets, Giant FEW; Polychromasia SLIGHT
[2021-05-14] MEDS: SOD FERRIC GLUC COMPLX/SUCROSE 250 MG in NA CHLORIDE 0.9% 250 ML IV SCH (09:55)
--- NOTE | 2021-05-14 11:31 | P.PN ---
Subjective Date of Service: 05/14/21 Primary Care Provider: Zhanna Chief Complaint: covid positive Subjective: No new changes Review of Systems 10-point ROS is otherwise unremarkable Physical Examination - Vital Signs Temperature: 97.8 F Blood Pressure: 119/63 Pulse: 79 Respirations: 18 Pulse Ox (%): 94 - Physical Exam General: Alert, In no apparent distress HEENT: Atraumatic, PERRLA, EOMI Neck: Supple, JVD not distended Respiratory: Clear to auscultation bilaterally, Normal air movement Cardiovascular: Regular rate/rhythm, Normal S1 S2 Gastrointestinal: Normal bowel sounds, No tenderness Musculoskeletal: No tenderness Integumentary: No rashes Neurological: Normal speech, Normal tone, Normal affect Lymphatics: No axilla or inguinal lymphadenopathy Assessment & Plan - Problems (Diagnosis) (1) COVID Current Visit: Yes Status: Acute Plan: will keep the patient in house will consider steroids. However the patient is currently stable. If he continues to maintain his oxygen. Remains afebrile we can discharge him. The rapid troponin is not likely to be due to inflammation. Dr. Woodson recomends a echo to rule out and cardiac dysfunction. 05/13 Afebrile no sob or hypoxia. Will keep him one more day to check an echocardiogram. Will monitor her blood work. (2) DM type 2 (diabetes mellitus, type 2) Current Visit: No Status: Chronic Plan: will restart his metformin in the am Qualifiers: Diabetes mellitus superintendent terminal insulin use: without jail use Diabetes mellitus complication status: without complication Qualified Code(s): E11.9 - Type 2 diabetes mellitus without complications (3) Inguinal mass Current Visit: No Status: Chronic Plan: He needs a outpatient biopsy Unfortunately this will have to wait now that he has a covid diagnosis by 10day (4) Troponin level elevated Current Visit: Yes Status: Acute Plan: Discussed with Dr. Centeno yesterday. Not planning on a cath. This new highly sensitive troponin is elevated. However anticoagulation is a problem with this patient. He is currently oozing from his groin mass and has required transfusions every few months. So he is a high bleeding risk. Dr. Centeno suggested we check an echocardiogram on the patient, 03/14 Plan to discharge if he has a normal echocardiogram (5) Liver function test abnormality Current Visit: Yes Status: Acute Plan: will continue fluids and antbiotics. may be sequela of the mass, covid or an infections. have discussed with Dr. Holt. who has started the patient on steroids and antibiotics. 05/13 Patients lft's improving. Continue with steroids. (6) Pulmonary embolism Current Visit: Yes Status: Acute Plan: This morning pt states he had a PE diagnoised 2 weeks ago in [facility]. He does not recall what he was sent home on. His initial presentation was due to increased bleeding from his mass after 2 weeks on anticoagulation. Which may be a reason to stop anticoagulation + Qualifiers: Pulmonary embolism type: unspecified Discharge Plan: Home - Code Status/Comfort Care Code Status Assessed: No Physician Review: Patient Assessed, Agree with Above Assessment and Plan Critical Care: No Time Spent Managing Pts Care (In Minutes): 25
--- NOTE | 2021-05-14 12:01 | P.PN ---
Subjective Date of Service: 05/14/21 Primary Care Provider: Zhanna Chief Complaint: covid positive Subjective: Improving (Doing well no new complaints Recently Dx with PE at [facility]) Doing much better no new complaints Review of Systems 10-point ROS is otherwise unremarkable Physical Examination - Vital Signs Temperature: 97.8 F Blood Pressure: 119/63 Pulse: 79 Respirations: 18 Pulse Ox (%): 94 - Physical Exam General: Alert, In no apparent distress, Oriented x3 Assessment & Plan - Problems (Diagnosis) (1) 2019 novel coronavirus-infected pneumonia (NCIP) Current Visit: Yes Status: Acute Plan: Doing much better / Sat satisfactory on RA. LFT improving, US liver fatty liver, HGB stable WBC elevated from steroids On antibioitcs/ Apparently pt was on anticoagulants from [facility] from PE/ High ridk of bleeding REC: reversible Filter and venous doppler of R groin Recovered from COVIDCW Ab for 2 wks Discharge Plan: Home Plan to discharge in: 24 Hours Physician Review: Patient Assessed, Agree with Above Assessment and Plan
--- NOTE | 2021-05-14 14:47 | RAD REPORT ---
EXAM DESCRIPTION: US - Extremity Venous Uni Ltd - 05/14/2021 2:26 pm CLINICAL HISTORY: rule out dvtright side groin and leg pain COMPARISON: None. TECHNIQUE: Real-time sonographic evaluation of the right lower extremity deep venous systems was per formed. FINDINGS: Normal compressibility, flow augmentation, phasic flow and spontaneous flow are identified in the right lower extremity common femoral, superficial femoral, popliteal and posterior tibial vei ns. No intraluminal filling defects seen. IMPRESSION: No DVT in the right lower extremity.
[2021-05-14] MEDS ORDERED: CEFAZOLIN/NS 1gm 1 GM/50 ML BAG IVPB SCH (15:45)
--- NOTE | 2021-05-14 19:06 | CON ---
Date of Consultation: 05/14/2021 Reason For Consultation: Patient requires a Santino filter. History Of Present Illness: Patient is a 45-year-old gentleman with a known left groin fungating mas s which was being worked up at [facility]. He was scheduled for biopsy. Please note he did have a biopsy in this facility in December which was suggestive of squamous cell carcinoma, however, And efraín wanted to redo the biopsy and then determined the appropriate care plan, however, patient brando hines had a PE diagnosed at [facility] and was started on Lovenox shots and had bleeding in his left groin with increasing pain. He came to this hospital and was admitted, as he also had COVID pneumon ia. He is being treated for that, as he cannot be anticoagulated because of the bleeding mass. I wa s asked to place a filter in this patient. The patient is awake, alert, in no distress at this time. No sore throat, runny nose, cough, headaches, or dizziness. No chest pain. No fever or chills. Review of Systems: Otherwise, unremarkable. Past Medical History: Significant for diabetes, rheumatoid arthritis, COPD, sleep apnea, morbid obes ity. Past Surgical History: Lymph node biopsy, bipolar disorder, as well as HPV, and rheumatoid arthritis . Social History: Significant for smoking and drinking alcohol, he has been counseled. Allergies: NONE. Family History: Noncontributory. Physical Examination: Vital Signs: Currently stable. He is afebrile. General: He is awake, alert, and oriented x3. Head and Neck: No masses. Chest: Clear. Heart: S1, S2. Abdomen: Soft. Extremities: Neurovascularly intact. Neurologic: Non focal. In the left groin, he has dressing in place where there was a fungating mass large. Laboratory Data: Reviewed. The patient's white count increased from 15,000 to 26,000. He has been recently started on steroids. His H and H are 8.4 and 28.6, which is stable, platelets are 504, INR is 1.52. His lactic acid on admission was 4.8. His liver function tests, AST and ALT, were elevated which are slowly improving. His procalcitonin on admission was 0.66. He had a right leg extremity v enous study which did not show any evidence of DVT. His report from [facility] is pending, regardin g whether patient had a PE there or not. I need to verify that prior to proceeding with a Wynne filter placement. Assessment: A 45-year-old gentleman with a large fungating mass in left groin, COVID pneumonia, hist ory of recent pulmonary embolism, contraindicated for anticoagulation at this mass that tends to blee d. Recommendation: Once I verified the patient and he does have PE, then we will proceed with placement of a retrievable Wynne filter through the right groin. Patient understands the risks, benefits , and alternatives and agrees to procedure. /MODL Voice ID: [id number] Report ID: [id number]
[2021-05-15] MEDS: HYDROMORPHONE HCL 1 MG/ML INJ IV PRN ×3 (02:09→12:55)
[2021-05-15 07:06] LABS: Absolute Lymphocytes (CBC) 2.3 K/uL (0.7-4.9); Hematocrit 29.6 % (39.6-49.0); Lymphocytes % 7.4 % (15.3-44.8); RBC Red Blood Cell Count 4.02 M/uL (4.33-5.43)
[2021-05-15 07:19] LABS: ALT/SGPT 265 U/L (12-78); AST/SGOT 38 U/L (15-37); Alkaline Phosphatase 119 U/L (45-117); BUN Blood Urea Nitrogen 18 mg/dL (7-18); Bicarbonate 27 mmol/L (21-32); Bilirubin Total 0.2 mg/dL (0.2-1.0); Glucose Level 191 mg/dL (74-106); Potassium 4.6 mmol/L (3.5-5.1); Protein, Total 7.1 g/dL (6.4-8.2); Sodium Level 138 mmol/L (136-145)
--- NOTE | 2021-05-15 07:43 | P.PN ---
Subjective Date of Service: 05/15/21 Primary Care Provider: Zhanna Chief Complaint: covid positive Subjective: No new changes Review of Systems 10-point ROS is otherwise unremarkable Physical Examination - Vital Signs Temperature: 97.8 F Blood Pressure: 127/72 Pulse: 72 Respirations: 20 Pulse Ox (%): 98 - Physical Exam General: Alert, In no apparent distress HEENT: Atraumatic, PERRLA, EOMI Neck: Supple, JVD not distended Respiratory: Clear to auscultation bilaterally, Normal air movement Cardiovascular: Regular rate/rhythm, Normal S1 S2 Gastrointestinal: Normal bowel sounds, No tenderness Musculoskeletal: No tenderness Integumentary: No rashes Neurological: Normal speech, Normal tone, Normal affect Lymphatics: No axilla or inguinal lymphadenopathy Assessment & Plan - Problems (Diagnosis) (1) Pulmonary embolism Current Visit: Yes Status: Acute Plan: This morning pt states he had a PE diagnoised 2 weeks ago in [facility]. He does not recall what he was sent home on. His initial presentation was due to increased bleeding from his mass after 2 weeks on anticoagulation. Which may be a reason to stop anticoagulation + 03/15 Plans for reji filter today at [address] Mckeon Qualifiers: Pulmonary embolism type: unspecified (2) COVID Current Visit: Yes Status: Acute Plan: will keep the patient in house will consider steroids. However the patient is currently stable. If he continues to maintain his oxygen. Remains afebrile we can discharge him. The rapid troponin is not likely to be due to inflammation. Dr. Woodson recomends a echo to rule out and cardiac dysfunction. 05/13 Afebrile no sob or hypoxia. Will keep him one more day to check an echocardiogram. Will monitor her blood work. (3) DM type 2 (diabetes mellitus, type 2) Current Visit: No Status: Chronic Plan: will restart his metformin in the am Qualifiers: Diabetes mellitus half-way insulin use: without half-way use Diabetes mellitus complication status: without complication Qualified Code(s): E11.9 - Type 2 diabetes mellitus without complications (4) Inguinal mass Current Visit: No Status: Chronic Plan: He needs a outpatient biopsy Unfortunately this will have to wait now that he has a covid diagnosis by 10day (5) Troponin level elevated Current Visit: Yes Status: Acute Plan: Discussed with Dr. Centeno yesterday. Not planning on a cath. This new highly sensitive troponin is elevated. However anticoagulation is a problem with this patient. He is currently oozing from his groin mass and has required transfusions every few months. So he is a high bleeding risk. Dr. Centeno suggested we check an echocardiogram on the patient, 03/14 Plan to discharge if he has a normal echocardiogram (6) Liver function test abnormality Current Visit: Yes Status: Acute Plan: will continue fluids and antbiotics. may be sequela of the mass, covid or an infections. have discussed with Dr. Holt. who has started the patient on steroids and antibiotics. 05/13 Patients lft's improving. Continue with steroids. Discharge Plan: Home - Code Status/Comfort Care Code Status Assessed: No Physician Review: Patient Assessed, Agree with Above Assessment and Plan Critical Care: No Time Spent Managing Pts Care (In Minutes): 20
[2021-05-15] MEDS: ENSURE HIGH PROTEIN 237 ML CAN PO SCH ×2 (08:00→16:26)
[2021-05-15 08:37] LABS: Anisocytosis 2+; Blood Morphology Comment NOTED (NOT SEEN); Platelet Estimate ADEQ; White Blood Cell Scan OK (OK)
[2021-05-15] MEDS: ASPIRIN EC 81 MG TAB PO SCH (08:43)
[2021-05-15] MEDS: DOXYCYCLINE 100 MG CAP PO SCH (08:44)
[2021-05-15] MEDS: GABAPENTIN 300 MG CAP PO SCH ×2 (08:44→13:21)
[2021-05-15] MEDS: AMOX/K CLAV 500 MG TAB PO SCH (08:44)
[2021-05-15] MEDS: dexAMETHasone 4 MG TAB PO SCH (08:44)
[2021-05-15] MEDS: MORPHINE *EXTENDED RELEASE* 15 MG TAB PO SCH (08:44)
[2021-05-15] MEDS: SOD FERRIC GLUC COMPLX/SUCROSE 250 MG in NA CHLORIDE 0.9% 250 ML IV SCH (09:06)
[2021-05-15] MEDS ORDERED: NA CHLORIDE 0.9% 1,000 ML ONE (09:23)
[2021-05-15] MEDS ORDERED: HEPARIN 5000 UNIT/ML 1 ML VIAL ONE (09:51)
[2021-05-15] MEDS ORDERED: LIDOCAINE 1% 20 ML MDV ONE (09:52)
[2021-05-15] MEDS ORDERED: NA CHLORIDE 0.9% 50 ML ONE (09:52)
[2021-05-15] MEDS ORDERED: CEFAZOLIN/NS 1gm 0 GM/0 ML BAG ONE (10:06)
[2021-05-15] MEDS ORDERED: CEFAZOLIN SODIUM 1 GM/VIAL ONE (10:08)
[2021-05-15] MEDS ORDERED: FENTANYL CITR 100 MCG/2 ML ONE (10:15)
[2021-05-15] MEDS ORDERED: propofoL 200 MG/20 ML VIAL IV ONE (10:15)
[2021-05-15] MEDS ORDERED: ONDANSETRON 4 MG/2 ML VIAL ONE (10:16)
[2021-05-15] MEDS ORDERED: KETOROLAC 30 MG/ML INJ ONE (10:16)
[2021-05-15] MEDS ORDERED: MIDAZOLAM HCL 2 MG/2 ML INJ ONE (10:16)
[2021-05-15] MEDS ORDERED: dexAMETHasone 10 MG/ML VIAL ONE (10:16)
[2021-05-15] MEDS ORDERED: LIDOCAINE 1% MPF 30 ML VIAL ONE (10:16)
--- NOTE | 2021-05-15 11:26 | P.OP ---
Card Puncher: Song WOODWARD Preoperative diagnosis: PE, Hx of recent bleeding Postoperative diagnosis: same Primary procedure: Santino filter (Options) Secondary procedure: Fluoroscopy Anesthesia: General Estimated blood loss: min Specimen: none Findings: Normal anatomy Complications: None Transferred to: Recovery Room Condition: Good
[2021-05-15] MEDS: MORPHINE 4 MG/ML SYR ONE ×2 (12:07→12:12)
[2021-05-15 13:18] VITALS: TEMP 98.3
--- NOTE | 2021-05-15 15:49 | RAD REPORT ---
EXAM DESCRIPTION: RAD - Fluoroscopy >1 Hr - 05/15/2021 12:50 pm CLINICAL HISTORY: CATH GOOD COMPARISON: No comparisons FINDINGS/IMPRESSION: Twenty-three intraoperative fluoroscopic images were submitted showing placemen t of an IVC filter. The IVC filter is centered at L1. Dose: 76.5 mGy Time: 2.2 minutes
--- NOTE | 2021-05-15 16:05 | OP ---
Date of Procedure: 05/15/2021 Surgeon: Morgan Mckeon MD Outside Sales Representative: Song Magana, surgical dental assistant certified. Preoperative Diagnosis: Pulmonary embolism and recent history of bleeding from the left groin. Postoperative Diagnosis: Pulmonary embolism and recent history of bleeding from the left groin. Procedure: Placement of Santino filter Option type and interpretation of fluoroscopy via the righ t femoral approach. Estimated Blood Loss: Minimal. Specimen: None. Findings: Normal anatomy. Anesthesia: General. Complications: None. Disposition: The patient tolerated the procedure in stable condition and taken to Recovery in good g eneral condition. Procedure In Detail: The patient was brought to the OR and placed in supine position. General anest hesia begun. The patient was prepped and draped in usual sterile fashion and then Doppler device was used to isolate the femoral artery and then medial to that, the vein was identified with an 18-gauge needle. Guidewire was passed. Position was confirmed with fluoroscopy. Sheath introduced, dilator placed, and L2-L3 region identified clearly on fluoro and then the femoral Option Santino filter type mechanism deployed in a standard fashion and ended up at the L2 level with complete opening, no migration noted and then the introducer removed and pressure applied. Sterile dressing applied. The patient tolerated the procedure in stable condition and taken to Recovery in g ood general condition. /MODL Voice ID: [id number] Report ID: [id number]
--- NOTE | 2021-05-15 16:05 | P.DS ---
Admission Date: 05/10/21 Discharge Date: 05/15/21 Primary Care Provider: Zhanna Disposition: ROUTINE DISCHARGE Discharge Condition: GOOD Reason for Admission: covid positive - Problems (1) Pulmonary embolism Current Visit: Yes Status: Acute Qualifiers: Pulmonary embolism type: multiple subsegmental (without acute cor pulmonale) Qualified Code(s): I26.94 - Multiple subsegmental pulmonary emboli without acute cor pulmonale (2) COVID Current Visit: Yes Status: Acute (3) DM type 2 (diabetes mellitus, type 2) Current Visit: No Status: Chronic Qualifiers: Diabetes mellitus assisted insulin use: without assisted use Diabetes mellitus complication status: without complication Qualified Code(s): E11.9 - Type 2 diabetes mellitus without complications (4) Inguinal mass Current Visit: No Status: Chronic (5) Troponin level elevated Current Visit: Yes Status: Acute (6) Liver function test abnormality Current Visit: Yes Status: Acute Brief History of Present Illness: 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 He has a history of groin mass. The patient came to the ER complainting of pain and bleeding. He was stable Recieved a unit of blood. Was found to be covid positive. He also had an elevation of his rapid troponin level. The pateints oxygen level was normal. However her had active wheezing and was admitted to the hospital Hospital Course: Patient was admitted for covid. The patient was also bleeding. He was recently started on an anticoagulant. Was diagnoised with a PE. Considering the anticoagulation caused bleeding with the patient. Decided on a filter placement. Will have the patient follow up in the office Will need a biopsy and need a referral back to [facility] for a biopsy of the lesion Vital Signs/Physical Exam: Temp Pulse Resp BP Pulse Ox 98.3 F 95 H 18 131/77 91 05/15/21 13:00 05/15/21 13:00 05/15/21 13:00 05/15/21 13:00 05/15/21 13:00 General: Alert, In no apparent distress HEENT: Atraumatic, PERRLA, EOMI Neck: Supple, JVD not distended Respiratory: Clear to auscultation bilaterally, Normal air movement Cardiovascular: Regular rate/rhythm, Normal S1 S2 Gastrointestinal: Normal bowel sounds, No tenderness Musculoskeletal: No tenderness Integumentary: No rashes Neurological: Normal speech, Normal tone, Normal affect Lymphatics: No axilla or inguinal lymphadenopathy Laboratory Data at Discharge: WBC 30.80 K/uL (4.3-10.9) H* D 05/15/21 06:40 Hgb 8.8 g/dL (13.6-17.9) L 05/15/21 06:40 Hct 29.6 % (39.6-49.0) L 05/15/21 06:40 Plt Count 510 K/uL (152-406) H 05/15/21 06:40 PT 17.5 SECONDS (9.5-12.5) H 05/10/21 14:05 INR 1.52 05/10/21 14:05 APTT 37.8 SECONDS (24.3-36.9) H 05/10/21 14:05 Sodium 138 mmol/L (136-145) 05/15/21 06:40 Potassium 4.6 mmol/L (3.5-5.1) 05/15/21 06:40 BUN 18 mg/dL (7-18) 05/15/21 06:40 Creatinine 0.67 mg/dL (0.55-1.3) 05/15/21 06:40 Glucose 191 mg/dL (74-106) H 05/15/21 06:40 Total Bilirubin 0.2 mg/dL (0.2-1.0) 05/15/21 06:40 AST 38 U/L (15-37) H 05/15/21 06:40 ALT 265 U/L (12-78) H D 05/15/21 06:40 Alkaline Phosphatase 119 U/L (45-117) H 05/15/21 06:40 Amylase 318 U/L (25-115) H* 05/10/21 14:05 Lipase 36 U/L (73-393) L 05/10/21 14:05 Home Medications: Ciprofloxacin HCl [Cipro 500 MG Tablet] 500 mg PO BID #14 tab 11/09/20 Gabapentin 300 mg PO TID #90 capsule 11/09/20 Glipizide [Glipizide ER] 5 mg PO DAILY #30 tab.er.24 11/09/20 Hydrocodone 10/APAP 325 [[place] 10/325*] 2 tab PO Q4H PRN #60 tab 11/09/20 Metformin HCl 500 mg PO BID #60 tablet 11/09/20 Sodium Hypochlorite [Dakin's] 473 ml MC DAILY #1 bottle 11/09/20 metroNIDAZOLE [Flagyl*] 500 mg PO Q8H #21 tablet 11/09/20 Surgicel 1 unit TOP PRN #5 11/10/20 Sulfamethoxazole/Trimethoprim [Bactrim Ds Tablet] 1 each PO BID 7 Days #14 table t 12/29/20 Nitrofurantoin Monohyd/M-Cryst [Macrobid 100 mg Capsule] 100 mg PO TID 3 Days #9 capsule 03/28/21 Aspirin [Aspirin EC 81 MG] 81 mg PO DAILY 90 Days #90 tablet. 05/15/21 New Medications: Aspirin [Aspirin EC 81 MG] 81 mg PO DAILY 90 Days #90 tablet. Diet: Regular Followup: Lito Chao MD [Primary Care Provider] -
[2021-05-15 16:59] VITALS: BP 146/77; O2SAT 92
[2021-05-15 19:15] LABS: HBsAG Nonreactive (Nonreactive)
== END 2021-05-15 18:27 | disposition home or self-care (01) | DRG 177 ==
LOC: SUPCPDRO 13:29 → ER 13:29 → ERHOLD 18:37 → 4TH 05-11 10:37
PROVIDERS: ADMIT Internal Medicine; ATTEND Internal Medicine
PROC: 06H03DZ Insertion of Intraluminal Device into Inferior Vena Cava, Percutaneous Approach (ICD-10-PCS; principal; 2021-05-15 10:00)
DX: U07.1 COVID-19 (principal); I26.94 Multiple subsegmental thrombotic pulmonary emboli without acute cor pulmonale; R58 Hemorrhage, not elsewhere classified; E11.9 Type 2 diabetes mellitus without complications; R22.2 Localized swelling, mass and lump, trunk; R77.8 Other specified abnormalities of plasma proteins; R94.5 Abnormal results of liver function studies; M06.9 Rheumatoid arthritis, unspecified
CPT/HCPCS: 36415; 71045; 76700; 80048; 80053; 80074; 80076; 81015; 82150; 82550; 82553; 82947; 83605; 83690; 84145; 84484; 85025; 85027; 85610; 85730; 86850; 86900; 86901; 87040; 87086; 87088; 93005; 93306; 93971; 96374; 96375; 99284; J0690; J1100; J1170; J1644; J1940; J2250; J2405; J2704; J2916; J3010; J7030; J7040; J7050; J8540; P9016; U0003

== ENCOUNTER 2021-06-14 12:07 | Emergency (ER) | payer OTHER ==
--- OUTSIDE RECORDS SUMMARY | 2021-06-14 12:11 | XMS REPORT | Clinical Summary ---
:1975 Author Organization [facility] MD Padilla [facility] Center Address [address] [place] [address] Care Team Providers Name Role Phone Unavailable [...] 0 Discontinued inophen (NORCO) by mouth every 1 22 (Stop Taking at 7.5 mg-325 mg per 6 (six) hours Discharge) tablet as needed for moderate pain. morphine (MS Take 1 tablet 0 04/29/19 Dis continued CONTIN) 60 mg 12 by mouth twice 22 (Stop Taking at hr tablet daily. Discharge) [...] Take 1 tablet 30 tablet 0 05/30/19 Exp ired (PROTONIX) 40 mg (40 mg) by 2 [...] Inject 0.86 mL 30 Syringe 5 05/16/19 Exp ired (LOVENOX) 150 (130 mg) under 2 22 [...] Added automatically from request for katherin dahl [id number] Gastritis 04/26/2021 Vitamin D deficiency 04/26/2021 Single [...] Dx) 04/28/2021 Orders Only Melanoma Surgery Debra Brownily Groin mass <Left side; MD Juan Lower [...] Obstructive sle ep apnea 04/23/2021 Travel after 06/14/2020 Surgical History Surgery Date Site/Laterality Comments LYMPH NODE BIOPSY AK ESOPHAGOGASTRODUODENOSCOPY 04/26/2021 Esophagus/N/A Pr ocedure: DIAGNOSTIC TRANSORAL DIAGNOSTIC UPPER GASTR OINTESTINAL ENDOSCOPY; Surg cierra: Maria E Valdez MD; Location: [facility] ENDOSCOPY; Serv ice: GASTROENTEROLOGY AK COLONOSCOPY FLX DX W/COLLJ SPEC 04/26/2021 N/A Procedure: DIAGNOSTIC WHEN PFRMD FLEXIBLE COLONOS COPY PROXIMAL TO SPLE RADHA FLEXURE; Surgeo n: Maria E Valdez MD; Location: [facility] ENDOSCOPY; Serv ice: GASTROENTEROLOGY Medical History Medical [...] file Not on file Not on file Obstetrics History Last Filed Vital Signs Vital Sign Reading Time Taken Comments Blood Pressure 135/77 04/29/2021 3:39 PM [facility] Pulse 82 04/29/2021 3:39 PM [facility] Temperature 36.8 C (98.2 F) 04/29/2021 3:39 PM [facility] Respiratory Rate 18 04/29/2021 3:39 PM [facility] Oxygen Saturation 95% 04/29/2021 3:39 PM [facility] Inhaled Oxygen Concentration - - Weight 131.1 kg (289 lb 0.4 oz) 04/29/2021 5:52 AM [facility] Height 173 cm (5' 8.11") 04/23/2021 6:02 PM [facility] Body Mass Index 43.8 04/23/2021 6:02 PM [facility] Plan of Treatment Date Type Specialty Care Team Description 04/03/2022 Telemedicine Gastroenterology, Maria E Valdez Hepatology & SMD [facility] [address] [place], [place] [address] (Wo rk) 05/02/2022 Clinical Support Covid 05/03/2022 Hospital Encounter Endoscopy Maria E Valdez MD [address] [place], [place] [address] (Wo rk) 05/03/2022 Surgery Endoscopy Maria E Valdez DIAGNOSCHAVEZ Gonzales MD FLEXIBLE [address] [place]ONOS[place], [place] [address] 0 PROXIMAL TO [phone] (Wo rk) SPLENIC FLEXURE Name Priority Associated Diagnoses Date/Time DIAGNOSTIC FLEXIBLE Personal history of 05/03/19 23 8:20 AM [facility] COLONOSCOPY PROXIMAL TO colonic polyp SPLENIC FLEXURE Health Maintenance Due Date Last Done Comments COVID-19 Vaccination (1) 1980 Procedures Procedure Name Priority Date/Time Associated Comments Diagnosis CALCIUM LEVEL TOTAL AM 04/29/2021 6:48 Resu lts for this AM [facility] procedure are i n the results section. .GLOMERULAR FILTRATION AM 04/29/2021 6:48 R esults for this RATE AM [facility] procedure are i n the results section. SERUM CREATININE AM 04/29/2021 6:48 Results for this AM [facility] procedure are i n the results section. ELECTROLYTE PANEL AM 04/29/2021 6:48 Result s for this AM [facility] procedure are i n the results section. BLOOD UREA NITROGEN AM 04/29/2021 6:48 Resu lts for this AM [facility] procedure are i n the results section. GLUCOSE LEVEL AM 04/29/2021 6:48 Results fo r this AM [facility] procedure are i n the results section. MANUAL DIFFERENTIAL AM 04/29/2021 6:48 Resu lts for this AM [facility] procedure are i n the results section. Results CBC AM 04/29/2021 6:48 Results for this AM [facility] procedure are i n the results section. PHOSPHORUS LEVEL AM 04/29/2021 6:48 Results for this AM [facility] procedure are i n the results section. MAGNESIUM LEVEL AM 04/29/2021 6:48 Results for this AM [facility] procedure are i n the results section. BASIC METABOLIC PANEL, AM 04/29/2021 6:48 CALCIUM TOTAL AM [facility] COMPLETE BLOOD COUNT W/ AM 04/29/2021 6:48 DIFFERENTIAL AM [facility] MANUAL DIFFERENTIAL AM 04/28/2021 2:36 Resu lts for this AM [facility] procedure are i n the results section. Results CBC AM 04/28/2021 2:36 Results for this AM [facility] procedure are i n the results section. COMPLETE BLOOD COUNT W/ AM 04/28/2021 2:36 DIFFERENTIAL AM [facility] CALCIUM LEVEL TOTAL AM 04/28/2021 2:30 Resu lts for this AM [facility] procedure are i n the results section. .GLOMERULAR FILTRATION AM 04/28/2021 2:30 R esults for this RATE AM [facility] procedure are i n the results section. SERUM CREATININE AM 04/28/2021 2:30 Results for this AM [facility] procedure are i n the results section. ELECTROLYTE PANEL AM 04/28/2021 2:30 Result s for this AM [facility] procedure are i n the results section. BLOOD UREA NITROGEN AM 04/28/2021 2:30 Resu lts for this AM [facility] procedure are i n the results section. GLUCOSE LEVEL AM 04/28/2021 2:30 Results fo r this AM [facility] procedure are i n the results section. PHOSPHORUS LEVEL AM 04/28/2021 2:30 Results for this AM [facility] procedure are i n the results section. MAGNESIUM LEVEL AM 04/28/2021 2:30 Results for this AM [facility] procedure are i n the results section. BASIC METABOLIC PANEL, AM 04/28/2021 2:30 CALCIUM TOTAL AM [facility] US LEG VENOUS DOPPLER Routine 04/27/2021 8:47 Re sults for this BILATERAL AM [facility] procedure are i n the results section. CALCIUM LEVEL TOTAL AM 04/27/2021 5:25 Resu lts for this AM [facility] procedure are i n the results section. .GLOMERULAR FILTRATION AM 04/27/2021 5:25 R esults for this RATE AM [facility] procedure are i n the results section. SERUM CREATININE AM 04/27/2021 5:25 Results for this AM [facility] procedure are i n the results section. ELECTROLYTE PANEL AM 04/27/2021 5:25 Result s for this AM [facility] procedure are i n the results section. BLOOD UREA NITROGEN AM 04/27/2021 5:25 Resu lts for this AM [facility] procedure are i n the results section. GLUCOSE LEVEL AM 04/27/2021 5:25 Results fo r this AM [facility] procedure are i n the results section. MANUAL DIFFERENTIAL AM 04/27/2021 5:25 Resu lts for this AM [facility] procedure are i n the results section. Results CBC AM 04/27/2021 5:25 Results for this AM [facility] procedure are i n the results section. PHOSPHORUS LEVEL AM 04/27/2021 5:25 Results for this AM [facility] procedure are i n the results section. MAGNESIUM LEVEL AM 04/27/2021 5:25 Results for this AM [facility] procedure are i n the results section. BASIC METABOLIC PANEL, AM 04/27/2021 5:25 CALCIUM TOTAL AM [facility] COMPLETE BLOOD COUNT W/ AM 04/27/2021 5:25 DIFFERENTIAL AM [facility] MRI PELVIS W WO CONTRAST Routine 04/26/2021 7:50 Results for this PM [facility] procedure are i n the results section. POC GLUCOSE SCREEN Routine 04/26/2021 3:20 Resul ts for this PM [facility] procedure are i n the results section. POC GLUCOSE SCREEN Routine 04/26/2021 11:36 Resul ts for this AM [facility] procedure are i n the results section. PATHOLOGY BIOPSY Routine 04/26/2021 11:30 Anemia due to Result s for this INTERPRETATION AM [facility] chronic blood loss procedu re are in the results section. DIAGNOSTIC FLEXIBLE 04/26/2021 10:36 Anemia due to COLONOSCOPY PROXIMAL TO AM [facility] chronic blood los s SPLENIC FLEXURE DIAGNOSTIC UPPER 04/26/2021 10:36 Anemia due to GASTROINTESTINAL AM [facility] chronic blood loss ENDOSCOPY POC GLUCOSE SCREEN Routine 04/26/2021 10:36 Resul ts for this AM [facility] procedure are i n the results section. POC GLUCOSE SCREEN Routine 04/26/2021 8:14 Resul ts for this AM [facility] procedure are i n the results section. THYROID STIMULATING AM 04/26/2021 3:20 Resu lts for this HORMONE AM [facility] procedure are i n the results section. CALCIUM LEVEL TOTAL AM 04/26/2021 3:20 Resu lts for this AM [facility] procedure are i n the results section. .GLOMERULAR FILTRATION AM 04/26/2021 3:20 R esults for this RATE AM [facility] procedure are i n the results section. SERUM CREATININE AM 04/26/2021 3:20 Results for this AM [facility] procedure are i n the results section. ELECTROLYTE PANEL AM 04/26/2021 3:20 Result s for this AM [facility] procedure are i n the results section. BLOOD UREA NITROGEN AM 04/26/2021 3:20 Resu lts for this AM [facility] procedure are i n the results section. GLUCOSE LEVEL AM 04/26/2021 3:20 Results fo r this AM [facility] procedure are i n the results section. MANUAL DIFFERENTIAL AM 04/26/2021 3:20 Resu lts for this AM [facility] procedure are i n the results section. Results CBC AM 04/26/2021 3:20 Results for this AM [facility] procedure are i n the results section. PHOSPHORUS LEVEL AM 04/26/2021 3:20 Results for this AM [facility] procedure are i n the results section. MAGNESIUM LEVEL AM 04/26/2021 3:20 Results for this AM [facility] procedure are i n the results section. BASIC METABOLIC PANEL, AM 04/26/2021 3:20 CALCIUM TOTAL AM [facility] COMPLETE BLOOD COUNT W/ AM 04/26/2021 3:20 DIFFERENTIAL AM [facility] POC GLUCOSE SCREEN Routine 04/25/2021 11:03 Resul ts for this PM [facility] procedure are i n the results section. POC GLUCOSE SCREEN Routine 04/25/2021 5:32 Resul ts for this PM [facility] procedure are i n the results section. POC GLUCOSE SCREEN Routine 04/25/2021 2:59 Resul ts for this PM [facility] procedure are i n the results section. CT CHEST PULMONARY Routine 04/25/2021 11:38 Resul ts for this EMBOLISM W CONTRAST AM [facility] procedur e are in the results section. POC GLUCOSE SCREEN Routine 04/25/2021 10:19 Resul ts for this AM [facility] procedure are i n the results section. CALCIUM LEVEL TOTAL AM 04/25/2021 3:19 Resu lts for this AM [facility] procedure are i n the results section. .GLOMERULAR FILTRATION AM 04/25/2021 3:19 R esults for this RATE AM [facility] procedure are i n the results section. SERUM CREATININE AM 04/25/2021 3:19 Results for this AM [facility] procedure are i n the results section. ELECTROLYTE PANEL AM 04/25/2021 3:19 Result s for this AM [facility] procedure are i n the results section. BLOOD UREA NITROGEN AM 04/25/2021 3:19 Resu lts for this AM [facility] procedure are i n the results section. GLUCOSE LEVEL AM 04/25/2021 3:19 Results fo r this AM [facility] procedure are i n the results section. MANUAL DIFFERENTIAL AM 04/25/2021 3:19 Resu lts for this AM [facility] procedure are i n the results section. Results CBC AM 04/25/2021 3:19 Results for this AM [facility] procedure are i n the results section. PHOSPHORUS LEVEL AM 04/25/2021 3:19 Results for this AM [facility] procedure are i n the results section. MAGNESIUM LEVEL AM 04/25/2021 3:19 Results for this AM [facility] procedure are i n the results section. BASIC METABOLIC PANEL, AM 04/25/2021 3:19 CALCIUM TOTAL AM [facility] COMPLETE BLOOD COUNT W/ AM 04/25/2021 3:19 DIFFERENTIAL AM [facility] POC GLUCOSE SCREEN Routine 04/24/2021 11:28 Resul ts for this PM [facility] procedure are i n the results section. TRANSFUSE RED BLOOD Routine 04/24/2021 10:19 CELLS PM [facility] POC GLUCOSE SCREEN Routine 04/24/2021 8:32 Resul ts for this PM [facility] procedure are i n the results section. TRANSFUSE RED BLOOD Routine 04/24/2021 3:22 CELLS PM [facility] TMP HCVAB INTERP Routine 04/24/2021 12:40 Results for this PM [facility] procedure are i n the results section. TMP HIV 1/2 AG&AB PATH Routine 04/24/2021 12:40 R esults for this INTERP PM [facility] procedure are i n the results section. HEPATITIS C VIRUS Routine 04/24/2021 12:40 Result s for this ANTIBODY PM [facility] procedure are i n the results section. HIV-1/2 ANTIGEN AND Routine 04/24/2021 12:40 Resu lts for this ANTIBODIES, FOURTH PM [facility] procedure are in GENERATION the results section. VITAMIN D 25 HYDROXY Routine 04/24/2021 12:40 Res ults for this LEVEL PM [facility] procedure are i n the results section. PTH INTACT Routine 04/24/2021 12:40 Results for this PM [facility] procedure are i n the results section. CALCIUM IONIZED, VENOUS Routine 04/24/2021 12:40 Results for this PM [facility] procedure are i n the results section. POC GLUCOSE SCREEN Routine 04/24/2021 12:19 Resul ts for this PM [facility] procedure are i n the results section. PRBC PRODUCT READY FOR Routine 04/24/2021 11:11 R esults for this FRUIT AND VEGETABLE INSPECTOR AM [facility] procedure are i n the results section. PREPARE RBC Routine 04/24/2021 11:11 Results for this AM [facility] procedure are i n the results section. POC GLUCOSE SCREEN Routine 04/24/2021 8:55 Resul ts for this AM [facility] procedure are i n the results section. CT ABDOMEN PELVIS W WO Routine 04/24/2021 8:29 R esults for this CONTRAST AM [facility] procedure are i n the results section. CALCIUM LEVEL TOTAL AM 04/24/2021 2:40 Resu lts for this AM [facility] procedure are i n the results section. .GLOMERULAR FILTRATION AM 04/24/2021 2:40 R esults for this RATE AM [facility] procedure are i n the results section. SERUM CREATININE AM 04/24/2021 2:40 Results for this AM [facility] procedure are i n the results section. ELECTROLYTE PANEL AM 04/24/2021 2:40 Result s for this AM [facility] procedure are i n the results section. BLOOD UREA NITROGEN AM 04/24/2021 2:40 Resu lts for this AM [facility] procedure are i n the results section. GLUCOSE LEVEL AM 04/24/2021 2:40 Results fo r this AM [facility] procedure are i n the results section. MANUAL DIFFERENTIAL AM 04/24/2021 2:40 Resu lts for this AM [facility] procedure are i n the results section. Results CBC AM 04/24/2021 2:40 Results for this AM [facility] procedure are i n the results section. PHOSPHORUS LEVEL AM 04/24/2021 2:40 Results for this AM [facility] procedure are i n the results section. MAGNESIUM LEVEL AM 04/24/2021 2:40 Results for this AM [facility] procedure are i n the results section. BASIC METABOLIC PANEL, AM 04/24/2021 2:40 CALCIUM TOTAL AM [facility] COMPLETE BLOOD COUNT W/ AM 04/24/2021 2:40 DIFFERENTIAL AM [facility] URINE CULTURE Now 04/23/2021 10:38 Results fo r this PM [facility] procedure are i n the results section. POC GLUCOSE SCREEN Routine 04/23/2021 10:19 Resul ts for this PM [facility] procedure are i n the results section. WOUND CULTURE W/ GRAM Now 04/23/2021 10:01 Re sults for this STAIN PM [facility] procedure are i n the results section. XR CHEST 1 VW Routine 04/23/2021 8:40 Results fo r this PM [facility] procedure are i n the results section. XR HIP 2 OR 3 VW W Routine 04/23/2021 8:39 Resul ts for this PELVIS LEFT PM [facility] procedure are i n the results section. TMP CROSSMATCH Now 04/23/2021 8:15 Results f or this INTERPRETATION PM [facility] procedure are in the results section. TMP INTERPRETATION Routine 04/23/2021 8:15 Resul ts for this ANTIBODY SCREEN NEGATIVE PM [facility] pro cedure are in the results section. CLOT EXPIRATION DATE Routine 04/23/2021 8:15 Res ults for this PM [facility] procedure are i n the results section. ANTIBODY SCREEN Now 04/23/2021 8:15 Results for this PM [facility] procedure are i n the results section. ABORH Now 04/23/2021 8:15 Results for this PM [facility] procedure are i n the results section. TYPE AND SCREEN Now 04/23/2021 8:15 PM [facility] HEMOGLOBIN A1C Routine 04/23/2021 8:15 Results f or this PM [facility] procedure are i n the results section. FERRITIN LVL Routine 04/23/2021 8:15 Results for this PM [facility] procedure are i n the results section. TRANSFERRIN Routine 04/23/2021 8:15 Results for this PM [facility] procedure are i n the results section. IRON LEVEL Routine 04/23/2021 8:15 Results for this PM [facility] procedure are i n the results section. BLOODCULTURE Now 04/23/2021 8:15 Results for this PM [facility] procedure are i n the results section. CONFIRM ABORH TYPE Now 04/23/2021 8:14 Resul ts for this PM [facility] procedure are i n the results section. COVID-19 (SARS-COV-2) Now 04/23/2021 5:23 Re sults for this ASYMPTOMATIC-LT PM [facility] procedure ar e in the results section. TMP HIV 1/2 AG&AB PATH Routine 04/23/2021 4:13 R esults for this INTERP PM [facility] procedure are i n the results section. URINALYSIS MICROSCOPIC Routine 04/23/2021 4:13 R esults for this PM [facility] procedure are i n the results section. HEPATITIS B SURFACE AG Routine 04/23/2021 4:13 R esults for this W/CONFIRM PM [facility] procedure are i n the results section. HEPATITIS B CORE TOTAL Routine 04/23/2021 4:13 R esults for this ANTIBODY PM [facility] procedure are i n the results section. FRACTIONATED BILIRUBIN Now 04/23/2021 4:13 R esults for this PM [facility] procedure are i n the results section. TOTAL PROTEIN Now 04/23/2021 4:13 Results fo r this PM [facility] procedure are i n the results section. ASPARTATE Now 04/23/2021 4:13 Results for this AMINOTRANSFERASE PM [facility] procedure a re in the results section. ALANINE AMINOTRANSFERASE Now 04/23/2021 4:13 Results for this PM [facility] procedure are i n the results section. ALKALINE PHOSPHATASE Now 04/23/2021 4:13 Res ults for this PM [facility] procedure are i n the results section. ALBUMIN LEVEL Now 04/23/2021 4:13 Results fo r this PM [facility] procedure are i n the results section. CALCIUM LEVEL TOTAL Now 04/23/2021 4:13 Resu lts for this PM [facility] procedure are i n the results section. .GLOMERULAR FILTRATION Now 04/23/2021 4:13 R esults for this RATE PM [facility] procedure are i n the results section. SERUM CREATININE Now 04/23/2021 4:13 Results for this PM [facility] procedure are i n the results section. ELECTROLYTE PANEL Now 04/23/2021 4:13 Result s for this PM [facility] procedure are i n the results section. BLOOD UREA NITROGEN Now 04/23/2021 4:13 Resu lts for this PM [facility] procedure are i n the results section. GLUCOSE LEVEL Now 04/23/2021 4:13 Results fo r this PM [facility] procedure are i n the results section. MANUAL DIFFERENTIAL STAT 04/23/2021 4:13 Resu lts for this PM [facility] procedure are i n the results section. Results CBC STAT 04/23/2021 4:13 Results for this PM [facility] procedure are i n the results section. URINALYSIS WITH Now 04/23/2021 4:13 Results for this MICROSCOPIC IF INDICATED PM [facility] pro cedure are in the results section. APTT Now 04/23/2021 4:13 Results for this PM [facility] procedure are i n the results section. PROTHROMBIN TIME Now 04/23/2021 4:13 Results for this PM [facility] procedure are i n the results section. HEPATITIS B SURFACE Now 04/23/2021 4:13 Resu lts for this ANTIBODY, SERUM PM [facility] procedure ar e in the results section. HEPATITIS B SURFACE Now 04/23/2021 4:13 Resu lts for this ANTIGEN, SERUM PM [facility] procedure are in the results section. HEPATITIS C VIRUS Now 04/23/2021 4:13 Result s for this ANTIBODY PM [facility] procedure are i n the results section. HEPATITIS B CORE Now 04/23/2021 4:13 Results for this ANTIBODY PM [facility] procedure are i n the results section. HIV-1/2 ANTIGEN AND Now 04/23/2021 4:13 Resu lts for this ANTIBODIES, FOURTH PM [facility] procedure are in GENERATION the results section. PHOSPHORUS LEVEL Now 04/23/2021 4:13 Results for this PM [facility] procedure are i n the results section. MAGNESIUM LEVEL Now 04/23/2021 4:13 Results for this PM [facility] procedure are i n the results section. COMPREHENSIVE METABOLIC Now 04/23/2021 4:13 PANEL PM [facility] COMPLETE BLOOD COUNT W/ Now 04/23/2021 4:13 DIFFERENTIAL PM [facility] PATHOLOGY OUTSIDE Routine 12/27/2020 Results fo r this INTERPRETATION procedure are in the results section. after 06/14/2020 Results .Serum Creatinine (04/29/2021 6:48 AM [facility])Only the most recent of7 results within the time period is included. Pathologist Sig nature Creatinine 0.86 0.67 - 1.17 mg/dL [facility] C ENTER Specimen Blood Performing Organization Address City/State/ZIP Code Phon e Number [facility] Unless otherwise noted, [place] [address] [place] all lab tests performed by: Division of Pathology and Laboratory Medicine [address] (ABNORMAL) .CBC (04/29/2021 6:48 AM [facility])Only the most recent of7 resultswithin the time period is included. WBC 11.9 (H) 4.0 - 11.0 [facility] K/uL [facility] RBC 4.60 4.50 - 6.00 [facility] M/uL [facility] Hgb 9.1 (L) 14.0 - 18.0 [facility] gm/dL [facility] Hct 32.0 (L) 40.0 - 54.0 % [facility] MCV 70 (L) 82 - 98 fL [facility] MCH 19.8 (L) 27.0 - 31.0 pg [facility] MCHC 28.4 (L) 31.0 - 36.0 [facility] gm/dL [facility] RDW-SD 61.8 (H) 35.1 - 46.3 fL [facility] RDW-CV 27.2 (H) 12.0 - 15.5 % [facility] Platelet count 561 (H) 140 - 440 K/uL [facility] MPV 8.2 4.0 - 10.4 fL [facility] INRBC 0.0 <=0.0 % [facility] Comment: [facility] The INRBC (instrument NRBC) value reflects the enumera tion of nucleated red blood cells contained in a 200uL samp le of whole blood analyzed by the instrument. This value may differ from the NRBC value reported in a manual differ ential, which is based on a 100 cell differential. Specimen Blood Performing Organization Address City/State/ZIP Code Phon e Number [facility] Unless otherwise noted, [place] [address] [place] all lab tests performed by: Division of Pathology and Laboratory Medicine [facility] [address] Glomerular Filtration Rate (04/29/2021 6:48 AM [facility])Only the most recent of7 resultswithin the time period is included. eGFR-AA 122 >=60 [facility] Comment: mL/min/1.73 [facility] Normal eGFR: >= 60 mL/min/1.73 m2 sq. m Note: The eGFR is calculated using the CKD-EPI equation. The eGFR declines with age. eGFR <60 mL/min/1.73 m2 is considered as "decreased". This equation should only be used for patients 18 and older. According to the National [employer]'s Kidney Disease Outcome Quality Initiative (KDOQI) classification [...] 5 Kidney failure <15 eGFR-ALISON 105 >=60 [facility] Comment: mL/min/1.73 [facility] Normal eGFR: >= 60 mL/min/1.73 m2 sq. m Note: The eGFR is calculated using the CKD-EPI equation. The eGFR declines with age. eGFR <60 mL/min/1.73 m2 is considered as "decreased". This equation should only be used for patients 18 and older. According to the National [facility]'s Kidney Disease Outcome Quality Initiative (KDOQI) classification [...] Organization Address City/State/ZIP Code Phon e Number [facility] Unless otherwise noted, [place] [address] [place] all lab tests performed by: Division of Pathology and Laboratory Medicine [address] (ABNORMAL) Differential (04/29/2021 6:48 AM LIVESTOCK RANCHER)Only the most recent of7 resultswithin the time period is included. Neutrophil % 64.0 42.0 - 66.0 % [facility] Lymphocyte % 24.9 24.0 - 44.0 % [facility] Monocyte % 7.0 2.0 - 7.0 % [facility] Eosinophil % 2.6 1.0 - 4.0 % [facility] Basophil % 0.8 0.0 - 1.0 % [facility] IGRE % 0.7 (H)Comment: 0.0 - 0.4 % [facility] IGRE % count [facility] includes Metamyelocytes, Myelocytes, and Promyelocytes. Neutrophil Abs 7.60 (H) 1.70 - 7.30 [facility] Lymphocyte Abs 2.96 1.00 - 4.80 [facility] Monocyte Abs 0.83 (H) 0.08 - 0.70 [facility] Eosinophil Abs 0.31 0.04 - 0.40 [facility] Basophil Abs 0.10 0.00 - 0.10 [facility] IG Abs 0.08 (H) 0.00 - 0.04 [facility] Specimen Blood Performing Organization Address [facility] Phon e Number [facility] Unless otherwise noted, [address] all lab tests performed by: Division of Pathology and Laboratory Medicine [address] BUN (04/29/2021 6:48 AM LIVESTOCK RANCHER)Only the most recent of7 resultswithin the time period is included. Pathologist Sig nature BUN 12 6 - 23 mg/dL [facility] Specimen Blood Performing Organization Address [facility] Phon e Number [facility] Unless otherwise noted, [address] all lab tests performed by: Division of Pathology and Laboratory Medicine [address] [place] Phosphorus Level (04/29/2021 6:48 AM LIVESTOCK RANCHER)Only the most recent of7 resultswithin the time period is included. Pathologist Sig nature Phosphorus 3.8 2.5 - 4.5 mg/dL [facility] TER Specimen Blood Performing Organization Address [facility] Phon e Number [facility] Unless otherwise noted, [address] all lab tests performed by: Division of Pathology and Laboratory Medicine [address] [place] Magnesium Level (04/29/2021 6:48 AM LIVESTOCK RANCHER)Only the most recent of7 resultswithin the time period is included. Pathologist Sig nature Magnesium 1.9 1.6 - 2.6 mg/dL [facility] TER Specimen Blood Performing Organization Address [facility] Phon e Number [facility] Unless otherwise noted, [address] all lab tests performed by: Division of Pathology and Laboratory Medicine [address] [place] (ABNORMAL) Glucose Level (04/29/2021 6:48 AM LIVESTOCK RANCHER)Only the most recent of7 resultswithin the time period is included. Glucose Level 119 (H) 70 - 99 mg/dL [facility] Comment: [facility]ER CENTER Effective 11/22/15, the gluco se reference intervals have been updated based on [place] [employer] guidelines (Standards of Medical Care in Diabetes 2016. Diabetes Care 2016; 39: S13-S22). Fasting blood glucose: Normal: 70-99 mg/dL Impaired fasting glucose (in creased risk for diabetes or pre-diabetes): 100- 125 mg/dL Diabetes mellitus: >/=126 mg/dL Random blood glucose: Normal: 70-199 mg/dL Note: Random glucose >100 mg/dL is assoc iated with increased risk for diabetes Specimen Blood Performing Organization Address [facility] Phon e Number [facility] Unless otherwise noted, [address] all lab tests performed by: Division of Pathology and Laboratory Medicine [address] [place] [address] Calcium Level (04/29/2021 6:48 AM LIVESTOCK RANCHER)Only the most recent of7 resultswithin the time period is included. Pathologist Sig nature Calcium Lvl 9.6 8.4 - 10.2 mg/dL [facility] CE NTER Specimen Blood Performing Organization Address [facility] Phon e Number [facility] CANCER Unless otherwise noted, [address] all lab tests performed by: Division of Pathology and Laboratory Medicine [address] [place] [address] Electrolyte Panel (04/29/2021 6:48 AM LIVESTOCK RANCHER)Only the most recent of7 results within the time period is included. Pathologist Sig nature Sodium Lvl 136 136 - 145 mEq/L [facility] Potassium Lvl 4.1 3.5 - 5.1 mEq/L [facility] Chloride 99 98 - 107 mEq/L [facility] CO2 25 22 - 29 mEq/L [facility] Anion Gap 12 4 - 14 mEq/L [facility] Specimen Blood Performing Organization Address City/[facility] Phon e Number [facility] CANCER Unless otherwise noted, [address] all lab tests performed by: Division of Pathology and Laboratory Medicine [address] [facility] US Leg Venous Doppler Bilateral (04/27/2021 8:47 AM LIVESTOCK RANCHER) Specimen Impressions [id number] - 04/27/2021 9:12 AM LIVESTOCK RANCHER Negative for deep venous thrombosis in t he bilateral lower extremities. The left proximal femoral vein is obscured by overlying bandages and not visualized. Narrative [id number] - 04/27/2021 9:12 AM LIVESTOCK RANCHER FULL RESULT: Examination: US LEG VENOUS DOPPLER [...] FULL RESULT: Examination: US LEG VENOUS [facility]PLER [facility], 04/27/2021 8:47 AM Clinical History: Groin mass [...] Organization Address City/State/ZIP Code Phon e Number [id number] MRI Pelvis with and without Contrast (04/26/2021 7:50 PM LIVESTOCK RANCHER) Specimen Impressions [id number] - 04/26/2021 10:33 PM LIVESTOCK RANCHER Large subcutaneous tumor extending from the left flank to the proximal left thigh as described above. There is left inguinal adenopathy. Narrative [id number] - 04/26/2021 10:33 PM LIVESTOCK RANCHER FULL RESULT: Examination: MRI PELVIS W WO [...] RESULT: Examination: MRI PELVIS W WO CONTRAST, 7:50 PM. Clinical History: Groin mass Indication: [...] Organization Address City/State/ZIP Code Phon e Number [id number] (ABNORMAL) POC Glucose Screen (04/26/2021 3:20 PM LIVESTOCK RANCHER)Only the most recent of13 resultswithin the time [...] Sample Type Capillary POC [facility] Clinical Lab, [address] [place] [id number]; Sitecore Developer: Melissa Carpio MD Specimen Blood Performing Organization Address City/[facility]/ZIP Code Phon e Number POC TELCOR Pathology Biopsy Interpretation (04/26/2021 11:30 AM LIVESTOCK RANCHER) Pathologist Sig nature Submitted Clinical Anemia due to chronic [facility] History blood loss [D50.0] Diagnosis A. Colon, cecum polyp, biopsy: [facility] BS Electronically signed Tubular adenoma [...] colon polyp, biopsy: Lipoma Gross Description A: [facility] Colon, cecal polyp: 2 soft [...] in E1. ET Disclaimer "Some tests reported [facility] here may have been developed and performance characteristics determined by [facility] Pathology and Laboratory Medicine. These tests have not been specifically cleared or approved by the U.S. Food and Drug Administration. If applicable, controls were reviewed and showed appropriate reactivity." Specimen Tissue - Colon Tissue - Duodenum Tissue - Stomach Tissue - Stomach Tissue - Colon Performing Organization Address City/State/ZIP Code Phon e Number [facility] [place] [place] [address] [address] TSH (04/26/2021 3:20 AM LIVESTOCK RANCHER) Pathologist Sig nature TSH 2.73 0.27 - 4.20 mcunit/mL [facility] CENTER Specimen Blood Performing Organization Address City/[facility] Phon e Number [facility] CANCER Unless otherwise noted, [place] [address] CENTER all lab tests performed by: Division of Pathology and Laboratory Medicine [address] Chest Pulmonary Embolism with Contrast (04/25/2021 11:38 AM LIVESTOCK RANCHER) Specimen Impressions [id number] - 04/25/2021 11:51 AM LIVESTOCK RANCHER Subsegmental pulmonary emboli in the right lower lobe pulmonary artery are unchanged. There are no CT findings of right ventricular strain. Narrative [id number] - 04/25/2021 11:51 AM LIVESTOCK RANCHER FULL RESULT: Examination: CT CHEST PULMONARY EMBOLISM [...] Organization Address City/State/ZIP Code Phon e Number [id number] Transfuse RBC:Transfusion Date: 04/24/2021 (04/25/2021 12:29 AM LIVESTOCK RANCHER)Only the most recent of2 resultswithin the time period is included.TMP HIV 1/2 Ag&Ab Path Interp (04/24/2021 12:40 PM LIVESTOCK RANCHER)Only the most recent of2 resultswithin the time period is included. HIV 1/2 Ag&Ab Negative for HIV-1 antigen a nd HIV-1/HIV-2 antibodies. No laboratory evidence of HIV infection. If acute HIV infection is suspected, consider testing for HIV-1 RNA. [facility] Interp Comment: CENTER MD Gaby WILHELM Dictated by: MD Gaby WILHELM Dictated Date/Time: 04.24.20 21:42 PM LIVESTOCK RANCHER Transcribed Date/Time: 04.24.2021 21:42 PM LIVESTOCK RANCHER Electronically Signed By: MD Gaby WILHELM on 04.24.2021 21:42 PM Specimen Blood Performing Organization Address City/[facility] Code Phon e Number [facility] [address] [place] [address] HIV-1/2 Antigen and Antibodies, Fourth Generation (04/24/2021 12:40 PM LIVESTOCK RANCHER)Only the most recent of2 resultswithin the time period is included. HIV 1/2 Ag & Ab, Non Reactive Non Reactive [facility] 4th Gen Comment: CENTER Performed at: [facility] [address] [place] [id number] Specimen Blood Performing Organization Address City/[facility] Phon e Number [facility] [address] [place] [address] TMP HCV Ab Path Interp (04/24/2021 12:40 PM LIVESTOCK RANCHER) HCV Ab Path There is NO serologic evidence of Hepatitis C vi naima antibody. [facility] Interp Comment: CENTER MD Gaby WILHELM Dictated by: MD Gaby WILHELM Dictated Date/Time: 04.24.20 21:41 PM LIVESTOCK RANCHER Transcribed Date/Time: 04.24.2021 21:41 PM LIVESTOCK RANCHER Electronically Signed By: MD Gaby WILHELM on 04.24.2021 21:41 PM Specimen Blood Performing Organization Address City/State/ZIP Code Phon e Number [facility] [place] [address] (ABNORMAL) PTH Intact (04/24/2021 12:40 PM LIVESTOCK RANCHER) Pathologist Rayo pickard PTH Intact 7.2 (L) 15.0 - 65.0 pg/mL [facility] Specimen Blood Performing Organization Address [facility] Phon e Number [facility] CANCER Unless otherwise noted, [address] all lab tests performed by: Division of Pathology and Laboratory Medicine [address] [place] [address] [place] Hepatitis C Virus Ab (04/24/2021 12:40 PM LIVESTOCK RANCHER)Only the most recent of2 results within the time period is included. Pathologist Abhi HCVAb. Non Reactive Non Reactive [facility] Comment: CENTER Antibody detection in the im munocompromised and immunosuppressed population may be delayed or absent entirely. Therefore serial testing, correlation with other clinical findings, and supplemental testin g (if available) should be taken into consideration when interpreting the results. Performed at: [facility] [address] [place] [id number] Specimen Blood Performing Organization Address [facility] Phon e Number [facility] [address] [place] [id number] (ABNORMAL) Calcium Ionized, Venous (04/24/2021 12:40 PM LIVESTOCK RANCHER) Pathologist Rayo pickard V Ion Ca 1.39 (H) 1.15 - 1.29 mmol/L [facility] Specimen Blood Performing Organization Address [facility] Phon e Number [facility] CANCER Unless otherwise noted, [address] all lab tests performed by: Division of Pathology and Laboratory Medicine [facility] [address] (ABNORMAL) Vitamin D 25OH (04/24/2021 12:40 PM LIVESTOCK RANCHER) Pathologist Abhi Vitamin D 25 OH 8 (L) 30 - 100 ng/mL [facility] Comment: CANCER CENTER Reference Range: Deficiency: <10 ng/mL Insufficiency: 10-29 ng/mL Sufficiency: 30-100 ng/mL Potential toxicity: >100 ng/mL Specimen Blood Performing Organization Address [facility] Phon e Number [facility] CANCER Unless otherwise noted, [address] all lab tests performed by: Division of Pathology and Laboratory Medicine [address] [place] [address] RBC Product Ready for Composite Technician (04/24/2021 11:11 AM LIVESTOCK RANCHER) Pathologist [facility] PRBC Product Ready B2 Blood [facility] for Composite Technician BankComment: [facility] CENTER Product is ready for lemon picker on April 24, 2021 12:20:47 LIVESTOCK RANCHER. Specimen Blood Performing Organization Address City/State/ZIP Code Phon e Number [facility] CANCER Unless otherwise noted, [place] [address] [place] all lab tests performed by: Division of Pathology and Laboratory Medicine [address] [place] [address] Prepare RBC:[id number], 2 Units (04/24/2021 11:11 AM LIVESTOCK RANCHER) Pathologist [facility] PRBC Product Ready 2Comment: Red Blood [facility] Cells Available - [facility] Order Form 03 when ready for product issue. Unit Number [id number] [facility] Product Code [id number] [facility] Unit Expiration [facility] Unit Blood Type 0600 [facility] Product Code Text RBCIRLR CPD AS1 [facility] 500mL CAN[facility]ER CENTER Crossmatch [id number] [facility] Expiration Date CANCER CENTER Unit Irradiated IRRADIATED [facility] Dispense Status ISSUED [facility] Unit Blood Type A Negative [facility] Product Composite Technician .BPAMComment: [facility] Location CANCER [place] Unit Number [id number] [facility] Product Code [id number] [facility] CANCER CENTER Unit Expiration [id number] [facility] CANCER [place] Unit Blood Type 0600 [facility] Product Code Text RBCIRLR Aph ACDA AS1 [facility] Bag 2 CAN[facility]ER CENTER Crossmatch [id number] [facility] Expiration Date CANCER CENTER Unit Irradiated IRRADIATED [facility] Dispense Status ISSUED [facility] Unit Blood Type A Negative [facility] Product Composite Technician .BPAMComment: [facility] Location CANCER CENTER Specimen Blood Performing Organization Address City/State/ZIP Code Phon e Number [facility] CANCER Unless otherwise noted, [place], [place] [id number] [place] [address] all lab tests performed by: Division of Pathology and Laboratory Medicine [address] [facility] [address] Abdomen Pelvis with and without Contrast (04/24/2021 8:29 AM LIVESTOCK RANCHER) Specimen Addenda Addendum by Derick Prasad MD on 04/24/2021 10:36 AM LIVESTOCK RANCHER Findings and recommendations discussed w [facility] Dr. Shaw at 10:32am on 04/24/21. Impressions [id number] - 04/24/2021 10:26 AM LIVESTOCK RANCHER 1. Large enhancing and hypervascular lob ulated [...] embolism protocol CT if clinically warranted. Narrative [id number] - 04/24/2021 10:26 AM LIVESTOCK RANCHER FULL RESULT: Examination: CT ABDOMEN PELVIS W [...] iliac lymph nodes, that are nonspecifi c. Veneer Taping Machine Operator left external iliac ly mph node measures 0.9 cm in short axis is seen on series 5 image 165./Additional independent sales representative distal left external iliac lymph node [...] external iliac lymph nodes, that are nonspecific. Veneer Taping Machine Operator left external iliac lymph node measures 0.9 c m in short axis is seen on series 5 image 165./Additional independent sales representative distal left external iliac lymph node [...] CT if clinically warranted. Performing Organization Address City/[facility]/ZIP [facility] Phon e Number [id number] Urine Culture (04/23/2021 10:38 PM LIVESTOCK RANCHER) Final Report No growth [facility] Path Review - The results have been review ed and electronically signed by Pathologist: [facility] Urine SHEILA MEIER MD #[id number] [facility] Specimen Urine, Clean Catch Performing Organization Address [facility] Phon e Number [facility] CANCER Unless otherwise noted, [place], [place] [id number] [place] [address] all lab tests performed by: Division of Pathology and Laboratory Medicine Ron5 Dony Tomlinson (ABNORMAL) Wound Culture w/Gram Stain (04/23/2021 10:01 PM LIVESTOCK RANCHER) Final Report Many Coryneform Bacteria [facility] Susceptibility performed upon request. Plates wi ll be held for 5 days [facility] ... Few Presumptive Proteus mirabilis (A) Path Review The results have been review ed and electronically signed by Pathologist: [facility] ALEKSANDR MEIER MD #[id number] [facility] (A) Gram Stain Report Moderate WBC's seen [facility] No organisms seen. [facility] (A) Organism Proteus mirabilis (A) [facility] Specimen Lesion Narrative [facility] - 2 9:04 PM LIVESTOCK RANCHER Groin Organism Antibiotic Method Susceptibility Proteus mirabilis *CHARLES expressed in mcg/mL MINIMUM INHIBITORY IN C: MINT [facility]CEN[facility]ATION Proteus mirabilis Ampicillin MINIMUM [...] Organization Address City/State/ZIP Code Phon e Number [facility] CANCER Unless otherwise noted, [place] [address] [place] all lab tests performed by: Division of Pathology and Laboratory Medicine [facility] X-ray Chest 1 View (04/23/2021 8:40 PM LIVESTOCK RANCHER) Specimen Impressions [id number] - 04/23/2021 9:02 PM LIVESTOCK RANCHER Clear lungs. Narrative [id number] - 04/23/2021 9:02 PM LIVESTOCK RANCHER FULL RESULT: Examination: XR CHEST 1 VW, [...] Organization Address City/State/ZIP Code Phon e Number [id number] XR Hip 2 or 3 Views w Pelvis Left (04/23/2021 8:39 PM LIVESTOCK RANCHER) Specimen Impressions [id number] - 04/23/2021 8:53 PM LIVESTOCK RANCHER Soft tissue fullness in the area of the left groin. Narrative [id number] - 04/23/2021 8:53 PM LIVESTOCK RANCHER FULL RESULT: Examination: XR HIP 2 OR [...] of the left groin. Performing Organization Address City/[facility] Code Phon e Number [id number] Clot Expiration Date (04/23/2021 8:15 PM LIVESTOCK RANCHER) Pathologist Sig nature T & S Expiration 04/26/2021 [facility] Specimen Blood Performing Organization Address City/[facility] Phon e Number [facility] CANCER Unless otherwise noted, [address] all lab tests performed by: Division of Pathology and Laboratory Medicine [facility] Donyhoang Tomlinson TMP Interpretation Antibody Screen Negative (04/23/2021 8:15 PM LIVESTOCK RANCHER) TMP Auto Neg ABSC At the present time, patien t plasma shows no evidence of RBC alloantibodies. [facility] Interp Comment: CANCER CENTER MD Gaby WILHELM [id number] Dictated by: MD Gaby WILHELM [id number] Dictated Date/Time: 04.24.20 5:42 AM LIVESTOCK RANCHER Transcribed Date/Time: 04.24.2021 5:42 AM LIVESTOCK RANCHER Electronically Signed By: CAMACHO HERNÁNDEZ MD - [phone] on 04.24.2021 5:42 AM C Specimen Blood Performing Organization Address [facility] Phon e Number [facility] CANCER Unless otherwise noted, [address] all lab tests performed by: Division of Pathology and Laboratory Medicine [address] TMP Interpretation Crossmatch (04/23/2021 8:15 PM LIVESTOCK RANCHER) TMP XM Interp RBC units crossmatched for transfusion appear ac ceptable. [facility] Comment: CANCER CENTER MD Gaby WILHELM [id number] Dictated by: MD Gaby WILHELM Dictated Date/Time: 04.24.20 15:19 PM LIVESTOCK RANCHER Transcribed Date/Time: 04.24.2021 15:19 PM LIVESTOCK RANCHER Electronically Signed By: MD Gaby WILHELM [id number] on 04.24.2021 15:19 PM Specimen Blood Performing Organization Address City/[facility] Phon e Number [facility] CANCER Unless otherwise noted, [address] all lab tests performed by: Division of Pathology and Laboratory Medicine [facility] Dony [address]linson ABORh (04/23/2021 8:15 PM LIVESTOCK RANCHER) Pathologist Sig melly ABORh. A POS [facility] Specimen Blood Performing Organization Address City/[facility] Phon e Number [facility] CANCER Unless otherwise noted, [address] all lab tests performed by: Division of Pathology and Laboratory Medicine [address] [place], [place] [address] Blood Culture (04/23/2021 8:15 PM LIVESTOCK RANCHER) Pathologist Abhi Final Report No growth [facility] Path Review - Immunity and antibiotic use may render culture negative. Ongoing infection requires repeat culture. The results have been reviewed and electronically signed by Pathologist: [facility] Bottle/Isolator Tash Bui MD, PhD #[id number] CANCER C ENTER Specimen Blood Performing Organization Address City/[facility] Phon e Number [facility] CANCER Unless otherwise noted, [address] all lab tests performed by: Division of Pathology and Laboratory Medicine [address] [place], [place] [address] Antibody Screen (04/23/2021 8:15 PM LIVESTOCK RANCHER) Pathologist Rayo pickrad ABSC. Negative ABSC [facility] CANCER CENTE R Specimen Blood Performing Organization Address City/[facility] Phon e Number [facility] CANCER Unless otherwise noted, [address] all lab tests performed by: Division of Pathology and Laboratory Medicine [address] Transferrin with TIBC (04/23/2021 8:15 PM LIVESTOCK RANCHER) Pathologist Sig nature Transferrin 225 200 - 360 mg/dL [facility] TER TIBC 315 250 - 450 mcg/dL [facility] CE NTER Specimen Blood Performing Organization Address [facility] Phon e Number [facility] Unless otherwise noted, [address] all lab tests performed by: Division of Pathology and Laboratory Medicine [address] (ABNORMAL) Iron Level (04/23/2021 8:15 PM LIVESTOCK RANCHER) Pathologist Sig nature Iron 14 (L) 59 - 158 mcg/dL [facility] TER Specimen Blood Performing Organization Address [facility] Phon e Number [facility] Unless otherwise noted, [address] all lab tests performed by: Division of Pathology and Laboratory Medicine [address] (ABNORMAL) Hemoglobin A1c (04/23/2021 8:15 PM LIVESTOCK RANCHER) Pathologist Sig nature A1C 5.8 (H) 4.3 - 5.6 % [facility] Comment: [facility]ENTER HbA1c values >=6.5% are diagnostic of diabetes mellitu s. Diagnosis should be confirmed by repeat testing. Therapeutic Action suggested: >8.0% HbA1c; Goal of therapy: <7.0% HbA1c Specimen Blood Performing Organization Address [facility] Phon e Number [facility] Unless otherwise noted, [address] all lab tests performed by: Division of Pathology and Laboratory Medicine [address] (ABNORMAL) Ferritin Level (04/23/2021 8:15 PM LIVESTOCK RANCHER) Pathologist Sig nature Ferritin Lvl 21 (L) 30 - 400 ng/mL [facility] CENT ER Specimen Blood Performing Organization Address [facility] Phon e Number [facility] CANCER Unless otherwise noted, [address] all lab tests performed by: Division of Pathology and Laboratory Medicine [address] Confirm ABORh (04/23/2021 8:14 PM LIVESTOCK RANCHER) Pathologist Sig nature ABORh Confirm. A POS [facility] ER Specimen Blood Performing Organization Address City/[facility]/ZIP [facility] Phon e Number [facility] Unless otherwise noted, [address] all lab tests performed by: Division of Pathology and Laboratory Medicine [address] COVID-19 (SARS-CoV-2)Asymptomatic-LT (04/23/2021 5:23 PM LIVESTOCK RANCHER) COVID19 Not Detected Not Detected [facility] (SARS-CoV-2) [facility] COVID19 SARS Inpatient Admission [facility] Indication [facility] CENTER Covid 19 Comment See Note [facility] Comment: CANCER CENTER The carolina SARS-CoV-2 nucleic acid test for use on the carolina Heather System is a real-time RT-PCR assay intended for the qualitative detection of SARS-CoV-2 (COVID-19) viral RNA in nasopharyngeal swabs from either individuals suspected of COVID-19 by their healthcare provider or from any individual, including individuals without symptoms or other reasons to suspect COVID-19. A fact sheet for patients provided by the hardwood floor layer ([employer]) can be reviewed at: https://www.fda.gov/media/15 7453/download. A fact sheet for Health Care providers is provided by the hardwood floor layer ([employer]) and can be reviewed at: https://www.fda.gov/media/232414/download Results must be interpreted within the context [...] and high-complexity tests. The Microbiology Laboratory at [facility], CLIA Accreditation # [id number] and CAP Accreditation #[id number], verified the performance characteristics of this assay. Internal controls are used to monitor all stages of the test process. Specimen Nasopharyngeal Swab Performing Organization Address City/[facility] Phon e Number [facility] Unless otherwise noted, [address] all lab tests performed by: Division of Pathology and Laboratory Medicine [address] [place] [address] Hepatitis B Core Total Antibody (04/23/2021 4:13 PM LIVESTOCK RANCHER) Pathologist [facility] HBc Total Ab-Lamar Negative Negative [facility] Comment: CANCER CENTER Test Performed by: [facility] [place] [address] [employer] Developer: Gael Westbrook M.D. Ph.D.; CLIA# [id number] Specimen Blood Performing Organization Address [facility] Phon e Number [facility] CANCER Unless otherwise noted, [address] all lab tests performed by: Division of Pathology and Laboratory Medicine [address] [place] [address] Fractionated Bilirubin (04/23/2021 4:13 PM LIVESTOCK RANCHER) Pathologist [facility] Bili Total 0.3 <=1.2 mg/dL [facility] Comment: CANCER CENTER Indocyanine Green (ICG) may cause falsely elevated bilirubin results. Total and direct bilirubin must not be measured from samples containing indocyanine green. False elevation of total matt irubin can be seen in patients with IgG concentrations above 28 g/L. Bili Direct <0.2Comment: <=0.3 mg/dL [facility] Indocyanine Green CANCER CENTER (ICG) may cause falsely elevated bilirubin results. Total and direct bilirubin must not be measured from samples containing indocyanine green. Bili Indirect See NoteComment: 0.0 - 0.9 [facility] Unable to calculate mg/dL [facility] Indirect Bilirubin result due to some parameters are outside reportable range Specimen Blood Performing Organization Address [facility] Phon e Number [facility] CANCER Unless otherwise noted, [address] all lab tests performed by: Division of Pathology and Laboratory Medicine [address] [place] [address] Hepatitis B Surface Ag w/Confirm (04/23/2021 4:13 PM LIVESTOCK RANCHER) Pathologist [facility] Hep Bs Ag-Lamar Negative Negative [facility] Comment: CANCER CENTER Test Performed by: [facility] [place] [address] [employer] Developer: Gael Westbrook M.D. Ph.D.; CLIA# [id number] Specimen Blood Performing Organization Address [facility] Phon e Number [facility] CANCER Unless otherwise noted, [address] all lab tests performed by: Division of Pathology and Laboratory Medicine [address] [place] [address] Hepatitis B Total Ig Core Ab (SCREENING) (anti-HBc total Ig; HBcAb total Ig) (04/23/2021 4:13 PM LIVESTOCK RANCHER) Pathologist Sig melly HBcAb Received See NoteComment: [facility] HBcAb was sent to a CANCER CENTER reference lab for testing. Expect results on Hepatitis B Core Total Ab within 96 hours. Specimen Blood Performing Organization Address City/[facility]/ZIP Code Phon e Number [facility] CANCER Unless otherwise noted, [address] all lab tests performed by: Division of Pathology and Laboratory Medicine [address] [place] [address] (ABNORMAL) Urinalysis with Microscopic (04/23/2021 4:13 PM LIVESTOCK RANCHER) Pathologist Sig nature UA WBC 4 (H) 0 - 2 /HPF [facility] UA RBC 4 (H) 0 - 2 /HPF [facility] UA Mucous NOT SEEN Not Seen-Trace /HPF [facility] UA Bacteria NOT SEEN NOT SEEN /HPF [facility] UA Squam Epi OCC None-Occasional [facility] /[facility] Specimen Urine Narrative [facility] - 1 5:08 PM LIVESTOCK RANCHER Some reporting parameters within the Urinalysis test have changed due to the implementation of new in strumentation in the [facility], allowi ng greater sensitivity of measurement. Urinalysis results reported by the [facility] using existing instrumentation, as well as Urinalysis t esting performed manually or by backup methodology at the [facility] will remain relatively unchanged. New reporting parameters and units will now be reported for all campuses. Performing Organization Address City/State/ZIP Code Phon e Number [facility] CANCER Unless otherwise noted, [address] all lab tests performed by: Division of Pathology and Laboratory Medicine [address] [place] [address] aPTT (04/23/2021 4:13 PM LIVESTOCK RANCHER) Pathologist Sig melly aPTT 33.8 24.7 - 36.8 second(s) [facility] CENTER Specimen Blood Performing Organization Address City/[facility]/ZIP [facility] Phon e Number [facility] CANCER Unless otherwise noted, [address] all lab tests performed by: Division of Pathology and Laboratory Medicine [address] [place] [address] Hepatitis B Surface Antibody (04/23/2021 4:13 PM LIVESTOCK RANCHER) Hep Bs Ab-Fagan Positive [facility] Comment: [facility] Patient is considered to be immune to infection with H BV. REFERENCE VALUE ------ Unvaccinated: Negative Vaccinated: Positive Hep Bs Ab Qn-Fagan 42.1 mIU/mL [facility] Comment: [facility] REFERENCE VALUE ------ Unvaccinated: <5.0 Vaccinated: >=12.0 Test Performed by: [place] [address] [employer]core Developer: Gael Westbrook M.D. Ph.D.; CLIA# [id number] Specimen Blood Performing Organization Address [facility] Phon e Number [facility] Unless otherwise noted, [address] all lab tests performed by: Division of Pathology and Laboratory Medicine [address] [place] [address] Hepatitis B Surface Ag (04/23/2021 4:13 PM LIVESTOCK RANCHER) Pathologist [facility] HBsAg Received See NoteComment: [facility] HBsAg was sent to a [facility] reference lab for testing. Expect results on Hepatitis B Surface Antigen w/ Confirm within 96 hours. Specimen Blood Performing Organization Address [facility] Phon e Number [facility] Unless otherwise noted, [address] all lab tests performed by: Division of Pathology and Laboratory Medicine [address] [place] [address] (ABNORMAL) Urinalysis w/Microscopic if Indicated (04/23/2021 4:13 PM LIVESTOCK RANCHER) Pathologist Sig nature UA Color Yellow Straw-Yellow [facility] UA Appear Hazy (A) Clear [facility] UA Glucose NEG NEG mg/dL [facility] UA Bili NEG NEG [facility] UA Ketones NEG NEG mg/dL [facility] UA Spec Grav 1.015 1.003 - 1.035 [facility] UA Blood NEG NEG [facility] UA pH 5.0 5.0 - 9.0 [facility] UA Protein NEG NEG mg/dL [facility] UA Urobilinogen NEG NEG [facility] UA Nitrite NEG NEG [facility] UA Leuk Est NEG NEG [facility] Specimen Urine Performing Organization Address City/[facility]/ZIP Code Phon e Number [facility] Unless otherwise noted, [address] all lab tests performed by: Division of Pathology and Laboratory Medicine [address] (ABNORMAL) Prothrombin Time with INR (04/23/2021 4:13 PM LIVESTOCK RANCHER) Pathologist Sig nature PT 15.8 (H)Comment: 11.5 - 13.9 [facility] Repeated and second(s) [facility]ER CENTER Verified INR 1.37 (H)Comment: 0.90 - 1.10 [facility] Repeated and [facility]ER CENTER Verified Specimen Blood Performing Organization Address City/[facility] Phon e Number [facility] Unless otherwise noted, [address] all lab tests performed by: Division of Pathology and Laboratory Medicine [address] ALT (04/23/2021 4:13 PM LIVESTOCK RANCHER) Pathologist Sig nature ALT 7 <=41 U/L [facility] Specimen Blood Performing Organization Address City/[facility] Phon e Number [facility] CANCER Unless otherwise noted, [address] all lab tests performed by: Division of Pathology and Laboratory Medicine [address] Aspartate Aminotransferase (04/23/2021 4:13 PM LIVESTOCK RANCHER) Pathologist Sig nature AST 12 <=40 U/L [facility] Specimen Blood Performing Organization Address City/[facility]/ZIP [facility] Phon e Number [facility] CANCER Unless otherwise noted, [address] all lab tests performed by: Division of Pathology and Laboratory Medicine [address] Total Protein (04/23/2021 4:13 PM LIVESTOCK RANCHER) Pathologist Sig nature Total Protein 7.8 6.4 - 8.3 g/dL [facility] TER Specimen Blood Performing Organization Address City/[facility] Phon e Number [facility] Unless otherwise noted, [address] all lab tests performed by: Division of Pathology and Laboratory Medicine [address] [place] [address] Alkaline Phosphatase (04/23/2021 4:13 PM LIVESTOCK RANCHER) Pathologist Sig nature Alk Phos 100 40 - 129 U/L [facility] Specimen Blood Performing Organization Address City/[facility]/ZIP Code Phon e Number [facility] CANCER Unless otherwise noted, [address] all lab tests performed by: Division of Pathology and Laboratory Medicine [address] [place] [address] (ABNORMAL) Albumin Level (04/23/2021 4:13 PM LIVESTOCK RANCHER) Pathologist Sig [facility] Albumin Lvl 2.7 (L) 3.5 - 5.2 gm/dL [facility] Specimen Blood Performing Organization Address City/[facility]/ZIP Code Phon e Number [facility] CANCER Unless otherwise noted, [address] all lab tests performed by: Division of Pathology and Laboratory Medicine [address] [place] [address] Pathology Outside Interpretation (12/27/2020) Pathologist Sig nature Materials Received Accession#, Stained, Block, Unstained Collect ed Received [facility] [employer] [facility] A. [id number], 2 SS, 0 BLOCKS, 0 USS 12/27/2020 Addendum 2 low Risk Human Papilloma Vir us testing (HPV subtypes tested - 6, 11, 40, 42, 43 and 44) by RNAScope HPV LR6 assay [facility] [employer] [facility] Addendum electronically signed A in-situ hybridization stud y for high and low risk Human Papilloma Virus (HPV) was performed at [facility] using the unstained slides cut from the submitted tissue block. The lesional cells express low Risk HPV, but are negative for high Risk HPV. by Michelle Hernández MD on 05/04/2021 at 11: 50 AM Clinical-pathologic correlation is necessary. Addendum 1 Additional material received on , Outside 0 SS, 1 BLOCK,0 USS, collected on 12/27/2020. [email or web address] [facility] Addendum electronically signed No additional study will be performed. A sarah interpretation remains unchanged. 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 [facility] Sections demonstrate fragmen ts of atypical squamous epithelium with clear cell changes involving fibroconnective tissue. As per clinical picture in Epic, the patient has a large exophytic lesion in the inguinal area. Thus, this martinez bmitted small fragmented specimen may not be independent sales representative of the entire lesion. If clinically indicated, an additional biopsy including examination of ancillary study for HPV status of the lesion is recommended. Correlation with clinical st udy and results of subsequent specimens at this anatomic location is necessary. This case was studied and di scussed at the dermatopathology faculty conference. Laminating Machine Offbearer(s) VGP, CAT, JLC, PN, WCC [facility] Disclaimer "Some tests reported [facility] here may have been developed and performance characteristics determined by [facility] Pathology and Laboratory Medicine. These tests have not been specifically cleared or approved by the U.S. Food and Drug Administration. If applicable, controls were reviewed and showed appropriate reactivity." Specimen Tissue Performing Organization Address City/State/ZIP Code Phon e Number [facility]S [facility] [place] [address] [address] after 06/14/2020 Insurance Payer Benefit Plan / Subscriber ID Effective Phone Address T ype Group Dates [employer] [id number] 2020-Pres [address] Medicaid [place] [address] Advance Directives Code Status Date Activated Date Inactivated Comments Full Code 04/23/2021 5:50 PM 04/29/2021 6:51 PM
--- OUTSIDE RECORDS SUMMARY | 2021-06-14 12:16 | XMS REPORT | Continuity of Care Document ---
:1975 Author Organization [facility] t Address [address] [place] [address] Care Team Providers Name Role Phone Lito Chao Ana Primary Care Physician Christian VALDEZ Attending Clinician Unavailable SYSTEM, NOT IN Attending Clinician Unavailable Kaylene PEREA Attending Clinician Unavailable BECCA Attending Clinician Unavailable Doctor Unassigned, Name Attending Clinician Unavailable Sanjuanita PA Attending Clinician Carina CASTING CLEANER Attending Clinician Freya MCKINNEY S Attending Clinician FELICIANO Attending Clinician Unavailable Vee Taylor MD Attending Clinician Valeria BARAJAS Attending Clinician Feliciano BARAJAS Attending Clinician Juan Brown MD Attending Clinician Neda BARAJAS, H. Attending Clinician Juan CHANG Attending Clinician Unavailable Christian Valdez MD Attending Clinician Gia Merrill MD Attending Clinician Abril BARAJAS, S. Attending Clinician Rivera MOYA Attending Clinician Oseas BARAJAS Attending Clinician Rostata Attending Clinician Unavailable DR GOLDIE Attending Clinician Unavailable Maria De Jesus Attending Clinician Unavailable Maria De Jesus Attending Clinician Unavailable Christian VALDEZ Admitting Clinician Unavailable Kaylene PEREA Admitting Clinician Unavailable VALERIA Admitting Clinician Unavailable Physician, Primary or Family Admitting Clinician Unavailpat AMEZCUA DR Admitting Clinician Unavailable Maria De Jesus Admitting Clinician Unavailable Payers Payer Name Policy Type Policy Number Effective Date Expiration Date S daly [employer]ICA[employer] [id number] 2020 STAR NON SSI 00:00:00 [employer] STAR [id number] 2020 PLUS 00:00:00 Problems Condition Condition Condition Status Onset Resolution Last Treating Co mments Source Name Details Category Date Date Treatment Clinician Date Personal Personal Disease Active Overview: history of history of 05-03 Formattin Anderso colonic colonic 00:00: g of this n polyp polyp 00 note might be different from the original. Added automatic ally from request for surgery [id number] Gastritis Gastritis Disease Active 2020-04 2-30 Anderso [...] Disease Active 2020-04 M D itis itis 2- Anderso 00:00: n 00 Hypercalce Hypercalce Disease Active 2020-04 M D maddie maddie 2- Anderso 00:00: n 00 Iron Iron Disease Active 2020-04 deficiency deficiency 2-28 An derso anemia anemia 00:00: n 00 Groin mass Groin mass Disease Active 2020-04 M D 2 Anderso 00:00: n 00 Cellulitis Cellulitis Disease Active 2020-04 M D 2 Anderso 00:00: n 00 Allergies, Adverse Reactions, Alerts Allergy Allergy Status Severity Reaction(s) Onset Inactive Treating Comm ents Source Name Type Date Date Clinician No Known DA Active U [facility]04 Clear Allergie 00:00: Green s [facility] No Known DA Active U N/A [facility] Clear Allergie 00:00: Green s [facility] NO KNOWN DA Active U [facility] CONTRAST 4-20 Clear MEDIA 00:00: Green ALLERG [facility] NO KNOWN DA Active U [facility] OTHER 4-20 Clear ALLERGIE 00:00: [facility] No Known DA Active U [facility] 4[facility]20 Clear Allergie 00:00: Green s [facility] No Known DA Active U [facility] Food 4-20 Clear Allergie 00:00: Green s [facility] No Known DA Active [facility] No Known Drug Active [facility] No Known Drug Active [facility] No Known Drug Active [facility] No Known Drug Active [facility] No Known Drug Active [facility] Family History Family Member Diagnosis Comments Start Date Stop Date Source Natural father Alcohol abuse MD John jimenez Natural mother Completed Suicide MD Cortez Social History Social Habit Start Date Stop Date Quantity Comments Source History of tobacco Current smoker MD Cortez use Alcohol intake 2021-05-01 2021-05-01 Ex-drinker MD Katharina bañuelos 00:00:00 00:00:00 (finding) Cigarettes smoked 2021-04-23 2021-04-23 MD John jimenez current (pack per 00:00:00 00:00:00 day) - Reported Tobacco use and 2021-04-23 2021-04-23 Smokeless tobacco MD Cortez exposure 00:00:00 00:00:00 non-user Sex Ass[birth year] At [birth year] MD [place] on 00:00:00 00:00:00 Smoking Status Start Date Stop Date Source Unknown if ever smoked [facility] Ex-smoker 2021-04-23 00:00:00 2021-04-23 00:00:00 MD Padilla son Medications Ordered Filled Start Stop Current Ordering Indication Dosage Frequency Signature Comments Components Source Medication Medication Date Date Medication? Clinician (SIG) Name Name ergocalcife 2021- Yes Obstructive 22008X Take 1 MD rol 05-03 sleep apnea capsule John rso (DRISDOL) 00:00: 05:59 (50,000 n 50,000 00 :00 Units) by units mouth once capsule a week for 8 doses. DULoxetine Yes Groin mass 30mg Take 1 MD (CYMBALTA) -03 <Unspecifie capsule Anderso 30 mg 00:00: d side; (30 mg) by n capsule 00 Unspecified mouth site; daily. Intra-abdom inal and pelvic swelling, mass and lump> pantoprazol 2021- No Obstructive 40mg Take 1 MD e 04-30 [...] 22.5mg Take 1 and MD (MSIR) 15 1-02 <Unspecifie one-half Anderso mg IR 00:00: d side; tablets n tablet 00 Unspecified (22.5 mg) site; by mouth Intra-abdom every 4 inal and (four) pelvic hours as swelling, needed for mass and pain. lump> haloperidol Yes Groin mass 1mg Take 1 MD (HALDOL) 1 1-02 <Unspecifie tablet (1 Anderso mg tablet 00:00: d side; mg) by n 00 Unspecified mouth site; every 6 Intra-abdom (six) inal and hours as pelvic needed swelling, (anxiety, mass and sleep). lump> melatonin Yes Groin mass 10mg Take 1 MD 10 mg 1-02 <Unspecifie tablet (10 A nderso tablet 00:00: d side; mg) by n 00 Unspecified mouth at site; bedtime. Intra-abdom inal and pelvic swelling, mass and lump> polyethylen Yes Groin mass Fill MD rocha glycol 04-29 <Unspecifie powder up Anderso (GLYCOLAX) 00:00: d [...] area(s) 3 (three) times a day. enoxaparin 2- No Obstructive 130mg Inject MD (LOVENOX) 04-29 01-20 sleep apnea 0.86 mL Anderso 150 mg/mL 00:00: 05:59 (130 mg) n prefilled 00 :00 under the syringe skin every 12 (twelve) hours for 31 doses. ciprofloxac 2021- No Obstructive 750mg Take 1 MD in HCl 04-29 sleep apnea tablet And erso (CIPRO) 750 00:00: 05:59 (750 mg) n mg tablet 00 :00 by mouth every 12 (twelve) hours for 9 days. HYDROcodone 2020-04 No 1{tbl} Take 1 M D -acetaminop 05-31 tablet by An derso hen (NORCO) 00:00: 00:00 mouth n 7.5 mg-325 00 :00 every 6 mg per (six) tablet hours as needed for moderate pain. morphine 2020-04 No 1{tbl} Take 1 MD (MS CONTIN) 05-31 tablet by An derso 60 mg 12 hr 00:00: 00:00 mouth n tablet 00 :00 twice daily. metFORMIN 2020-04 Yes 1{tbl} Take 1 MD (GLUCOPHAGE 1- tablet by And erso ) 500 mg 00:00: mouth n tablet 00 twice daily. Vital Signs Vital Name Observation Time Observation Value Comments Source Height 2019-07-15 13:44:00 172.72 CM Weight 2019-07-15 13:44:00 177 KG Height/Length Measured 2021-05-15 10:02:04 172.72 cm Height/Length Dosing 2021-05-15 10:02:04 172.7 cm Weight Dosing 2021-05-15 10:02:04 181.4 kg Height/Length Measured 2021-05-15 09:49:58 172.72 cm Height/Length Dosing 2021-05-15 09:49:58 172.7 cm Weight Dosing 2021-05-15 09:49:58 181.4 kg Height/Length Measured 2021-05-15 09:46:27 172.72 cm Height/Length Dosing 2021-05-15 09:46:27 172.7 cm Weight Dosing 2021-05-15 09:46:27 181.4 kg Height/Length Measured 2021-05-15 09:41:09 172.72 cm Height/Length Dosing 2021-05-15 09:41:09 172.7 cm Weight Dosing 2021-05-15 09:41:09 181.4 kg Height/Length Measured 2021-05-15 08:54:01 172.72 cm Height/Length Dosing 2021-05-15 08:54:01 172.7 cm Weight Dosing 2021-05-15 08:54:01 181.4 kg Systolic blood pressure 2021-04-29 21:39:27 135 mm[Hg] [...] Date / Time Performing Clinician Source Performed REFERRAL- REQUEST/RESPONSE 2021-05-30 06:01:00 Doctor Unassigned , No [facility] COMPLETE BLOOD COUNT W/ 2021-04-29 12:48:00 Tiesha Harding MD DIFFERENTIAL BASIC METABOLIC PANEL, 2021-04-29 12:48:00 Tiesha Harding MD CALCIUM TOTAL MAGNESIUM LEVEL 2021-04-29 12:48:00 Tiesha Harding MD Andpuneeto n PHOSPHORUS LEVEL 2021-04-29 12:48:00 Tiesha Harding MD on Results CBC 2021-04-29 12:48:00 Juanita Shaw MD MANUAL DIFFERENTIAL 2021-04-29 12:48:00 Juanita Shaw MD GLUCOSE LEVEL 2021-04-29 12:48:00 Juanita Shaw MD BLOOD UREA NITROGEN 2021-04-29 12:48:00 Juanita Shaw MD ELECTROLYTE PANEL 2021-04-29 12:48:00 Juanita Shaw MD [...] .GLOMERULAR FILTRATION 2021-04-28 08:30:00 Juanita Shaw MD CALCIUM LEVEL TOTAL 2021-04-28 08:30:00 Juanita Shaw MD Randy son US LEG VENOUS DOPPLER 2021-04-27 14:47:04 Dat Wiggins MD And erson BILATERAL COMPLETE BLOOD COUNT W/ 2021-04-27 11:25:00 Tiesha Harding MD DIFFERENTIAL BASIC METABOLIC PANEL, 2021-04-27 11:25:00 Tiesha Harding MD CALCIUM TOTAL MAGNESIUM LEVEL 2021-04-27 11:25:00 Tiesha Harding MD n PHOSPHORUS LEVEL 2021-04-27 11:25:00 Tiesha Harding MD [...] LEVEL TOTAL 2021-04-27 11:25:00 Juanita Shaw MD [place] lua MRI PELVIS W WO CONTRAST 2021-04-27 01:50:59 [...] SCREEN 2021-04-26 14:14:00 Dat Wiggins MD on BLOOD UREA NITROGEN 2021-04-26 09:20:00 Juanita Shaw MD Randy son ELECTROLYTE PANEL 2021-04-26 09:20:00 Juanita Shaw MD SERUM CREATININE 2021-04-26 09:20:00 Juanita Shaw MD .GLOMERULAR FILTRATION 2021-04-26 09:20:00 Juanita Shaw MD RATE CALCIUM LEVEL TOTAL 2021-04-26 09:20:00 Juanita Shaw MD Randy son THYROID STIMULATING 2021-04-26 09:20:00 Juanita Shaw MD Randy son HORMONE COMPLETE BLOOD COUNT W/ 2021-04-26 09:20:00 Tiesha Harding MD DIFFERENTIAL BASIC METABOLIC PANEL, 2021-04-26 09:20:00 Tiesha Harding MD CALCIUM TOTAL MAGNESIUM LEVEL 2021-04-26 09:20:00 Tiesha Harding MD Anderso n PHOSPHORUS LEVEL 2021-04-26 09:20:00 Tiesha Harding MD on Results CBC 2021-04-26 09:20:00 Juanita Shaw MD MANUAL DIFFERENTIAL 2021-04-26 09:20:00 Juanita Shaw MD Randy son GLUCOSE LEVEL 2021-04-26 09:20:00 Juanita Shaw MD POC GLUCOSE SCREEN 2021-04-26 05:03:00 Dat Wiggins [...] MAGNESIUM LEVEL 2021-04-25 09:19:00 Tiesha Harding MD Anderso n PHOSPHORUS LEVEL 2021-04-25 09:19:00 Tiesha Harding MD on Results CBC 2021-04-25 09:19:00 Juanita Shaw MD MANUAL DIFFERENTIAL 2021-04-25 09:19:00 Juanita Shaw MD Randy son GLUCOSE LEVEL 2021-04-25 09:19:00 Juanita Shaw MD BLOOD UREA NITROGEN 2021-04-25 09:19:00 Juanita Shaw MD ELECTROLYTE PANEL 2021-04-25 09:19:00 Juanita Shaw MD SERUM CREATININE 2021-04-25 09:19:00 Juanita Shaw MD .GLOMERULAR FILTRATION 2021-04-25 09:19:00 Juanita Shaw MDson RATE CALCIUM LEVEL TOTAL 2021-04-25 09:19:00 Juanita [...] HCVAB INTERP 2021-04-24 18:40:00 Viviana Stauffer MD rson POC GLUCOSE SCREEN 2021-04-24 18:19:00 Dat Wiggins MD on PREPARE RBC 2021-04-24 17:11:00 Viviana Stauffer MD PRBC PRODUCT READY FOR 2021-04-24 17:11:00 Dat Wiggins MD CRANE HOIST OR LIFT OPERATOR POC GLUCOSE SCREEN 2021-04-24 14:55:00 Dat Wiggins MD on CT ABDOMEN PELVIS W WO 2021-04-24 14:29:00 Tiesha Harding MD CONTRAST COMPLETE BLOOD COUNT W/ 2021-04-24 08:40:00 Tiesha Harding MD DIFFERENTIAL BASIC METABOLIC PANEL, 2021-04-24 08:40:00 Tiesha Harding MD CALCIUM TOTAL MAGNESIUM LEVEL 2021-04-24 08:40:00 Tiesha Harding MD n PHOSPHORUS LEVEL 2021-04-24 08:40:00 Tiesha Harding MD on Results CBC 2021-04-24 08:40:00 Juanita Shaw MD MANUAL DIFFERENTIAL 2021-04-24 08:40:00 Juanita Shaw MD Randy son GLUCOSE LEVEL 2021-04-24 08:40:00 Juanita Shaw MD BLOOD UREA NITROGEN 2021-04-24 08:40:00 Juanita Shaw MD Randy son ELECTROLYTE PANEL 2021-04-24 08:40:00 Juanita Shaw MD SERUM CREATININE 2021-04-24 08:40:00 Juanita Shaw MD .GLOMERULAR FILTRATION 2021-04-24 08:40:00 Juanita Shaw MD derson RATE CALCIUM LEVEL TOTAL 2021-04-24 08:40:00 Juanita Shaw MD Randy son URINE CULTURE 2021-04-24 04:38:00 Tiesha Harding MD POC GLUCOSE SCREEN 2021-04-24 04:19:00 Juanita Shaw MD on WOUND CULTURE W/ GRAM 2021-04-24 04:01:00 Tiesha Harding MD A nderson STAIN XR CHEST 1 VW 2021-04-24 02:40:06 Tiesha Harding MD Andjennifer bañuelos XR HIP 2 OR 3 VW W [...] MD CLOT EXPIRATION DATE 2021-04-24 02:15:00 Juanita Shaw MD rson TMP INTERPRETATION 2021-04-24 02:15:00 Juanita Shaw [...] ANTIGEN AND 2021-04-23 22:13:00 Emma Bell MD ANTIBODIES, FOURTH GENERATION HEPATITIS B CORE ANTIBODY 2021-04-23 22:13:00 Emma Bell MD HEPATITIS C VIRUS ANTIBODY 2021-04-23 22:13:00 Emma Bell HEPATITIS B SURFACE 2021-04-23 22:13:00 Emma Bell MD ANTIGEN, SERUM HEPATITIS B SURFACE 2021-04-23 22:13:00 Emma Bell MD ANTIBODY, SERUM PROTHROMBIN TIME 2021-04-23 22:13:00 Emma Bell MD APTT 2021-04-23 22:13:00 Emma Bell MD URINALYSIS WITH 2021-04-23 22:13:00 Emma Bell MD MICROSCOPIC IF INDICATED Results CBC 2021-04-23 22:13:00 Emma Bell MD MANUAL DIFFERENTIAL 2021-04-23 22:13:00 Emma Bell MD [facility] GLUCOSE LEVEL 2021-04-23 22:13:00 Emma Bell MD BLOOD UREA NITROGEN 2021-04-23 22:13:00 [facility] ELECTROLYTE PANEL 2021-04-23 22:13:00 Emma Bell MD Anderso n SERUM CREATININE 2021-04-23 22:13:00 Emma Bell MD .GLOMERULAR FILTRATION 2021-04-23 22:13:00 Emma Bell MD RATE CALCIUM LEVEL TOTAL 2021-04-23 22:13:00 Emma Bell MD [facility] ALBUMIN LEVEL 2021-04-23 22:13:00 Emma Bell MD ALKALINE PHOSPHATASE 2021-04-23 22:13:00 Emma Bell MD [facility] ALANINE AMINOTRANSFERASE 2021-04-23 22:13:00 Emma Bell MD [...] PATHOLOGY OUTSIDE 2020-12-27 00:00:00 Deedee Samuels MD Andpuneeto n INTERPRETATION [id number] 2020-09-04 00:00:00 [facility] [id number] 2020-08-31 00:00:[address] [facility] [id number] 2020-08-31 00:00:00 [facility] [id number] 2020-08-30 00:00:00 [facility] Plan of Care Planned Activity Planned Date Details Comments Source Future Scheduled Test 1981 00:00:00 COVID-19 Vaccination MD Cortez (1) [code = COVID-19 Vaccination (1)] Future Appointment 2022-05-03 08:20:00 Maria E Valdez MD, MD [place] [address] [place] [address] Future Appointment 2022-05-03 08:20:00 MD Diego Martinez MD [address] [place] [address] Procedure 2022-05-03 14:20:00 DIAGNOSTIC FLEXIBLE Rebeca Cortez COLONOSCOPY PROXIMAL TO SPLENIC FLEXURE Encounters Start End Encounter Admission Attending Care Care Encounter Source Date/Time Date/Time Type Type Clinicians Facility Department ID 2021-05-03 Outpatient SORAYA VALDEZ Jah/Hep/Nu [id number] 11:13:34 TYRA bañuelos 2021-05-01 Outpatient SORAYA MAURICE MDA [id number] 13:48:47 PROVIDER Vignesh bañuelos 2021-04-26 Outpatient SORAYA PEREA Jah/Hep/Nu [id number] 15:06:47 CLAE bañuelos 2021-02-07 [facility] [id number] [place] 12:13:33 [facility] 2020-08-29 Inpatient [facility] [id number] [facility] 17:04:00 [id number] [facility] 2021-05-30 2021-05-30 Orders Doctor GORGE [id number] [facility] 00:00:00 00:00:00 Only Unassigned, RYAN [id number] ity of [place] [facility] [id number] Juan as [id number] [facility] [address] 2021-04-23 2021-04-29 Inpatient ER KHEDER, ED [facility] Hosp Med [id number] 15:10:00 16:46:00 Vigneshpuneet bañuelos 2021-04-28 2021-04-28 Inpatient BENTLEY WIGGINS, ED MDA MDA [id number] 12:24:18 12:44:48 Vigneshpuneet bañuelos 2021-04-25 2021-04-25 Inpatient BENTLEY WGIGINS ED MDA MDA [id number] 04:00:06 04:37:00 Vignesh bañuelos 2021-04-24 2021-04-24 Inpatient BENTLEY WIGGINS ED MDA MDA [id number] 17:02:19 17:29:48 Vignesh bañuelos 2021-04-24 2021-04-24 Inpatient BENTLEY WIGGINS ED MDA MDA [id number] 15:59:11 16:20:43 Vignesh bañuelos 2020-08-31 2020-08-31 Outpatient CUCA Anderson [id number] [facility] 08:30:00 08:30:00 Cb [id number] [facility] 2019-07-15 2019-07-15 Emergency [facility] [id number] [facility] 12:28:00 13:10:00 [facility] 2018-09-22 2018-10-08 Inpatient 1 Lakhwinder Prettyrita [facility] PSY [id number] St. 12:33:00 13:59:00 Maria De JesusJeremy pack [facility] Results Test Description Test Time Test Comments Results Result Comments Source Pathology Outside Interpretation 2021-05-04 17:50:04 Test Item Value Reference Range Interpretation Comme nts Materials a4hmkAJyYYQcqGReDvAiGFGtMJLzj4odVXSuoESzAmNfHeUfBqPjJgaqjKBoJROiNdBcn9edv913oMYy q0lhRSEkDgL5vMLnUHDonWOgI209ECFiREuis2omy9FrFPDxhFYeq2F4KIBUzwuutEi8hJelF83nm8D4 SljuC7btSXFyYZEbI6OmYK1aGBXhWml2KOL0EAP7LRO [facility] wUIVwT1UxHW3mKCRqgBHxEWq5z8ihsHwoGBWgFYB3h1oxATkzvgUyHO3gvp5tsPa1m8kptyImLYOkQRA itLUVXEQrQ7LpiNloXg3ssYa7uFcaTevlMVO3Mim0UD1ezb25mas9rKccTYBgjbbzBeD7KNpjZEXebyg oJJg2ELauSQMhkTadCGqaBJPvcgzsRRhlUURjqEM6TI (test code KrrNCfH0CvHPJwPSaxWNMgokj9LnNtVk9wyVHvjQocGEjyp1wqi8prtLVeDrv2ZCSbTiGjGpmjJRubu0 Lgi9zxQSJcix4wVSR8pDSqoLjyr6Y8hRMqHIMxkSSepwPzYIEode97vDVyqBKkfQCmzw8lxgEidXUjqG YuQRX7wCZjghOdZSAxtYFhDVZzIM7dhIThSOKuyD9nu = 9973) kakYLDjXeMlxohiFAHciTscmnObCx9rnJokUXL3HHhqM4vvbS3fFzL9XKhvO6xwtK7tGWx5TLpsrPC8G WEedU9cRI2kzbayg6olDmJwYN3mkneyl1kaLaKnEN1wkab4i8rcKBY0YYmrNMLsGgB3yqR5OKTdbWFvP PYdkRavVEjsz008CFP4BgXyAXBmu6IfP2SzxKseN41e dJjkN22rMMJuwEgeeG1zuDaspU4gPjBmZnUvIVw6cm47DXd7vwhsrAvuGMo6gaZvAYYrQCW9VYEngCIk OQPoV1h5hbWwOGDyZLF5WEYarWFeKSXmI4g6yfVjKZY2YTi9ntCcSDJuaSSuqNBbIAOuMgLhuHCcLEHd LiCjNUIktJUabEHfrMBzqA9opUntEYGmfBVdyH0bQKE 3LPIahccfZiPirAUdREVgoXVcvv00RYLbvgGvhZUvoNqtbOYqHDC3OMZjXGCrMDPaYDW7WPNaIaHfiqQ bFQjfbTFlNONvMBChFPWwHBXuZTD0QQCjSoGajjZjGMjdeQEiUAWlDHOdUHInRIRsMGA8AVJyIlLntxK fFHgtuVSlSDIxFITuAEYcYARjENV2HKMgHbZypcBvNH lieLMoHBKyBTsrzVRmOQG2Q8adlLQcSKNhYDvehRLrNKHeT7wkwVBrFVwxQZZwxJAiQlifOWCumGOgWq JhQ8hdZBWiCxFvI8ZabLu3GKYoARRsamVpwDOchRslkRGiUBB2PVMaSANoSOCqGAU4TQUpGxVlzqDzGX yzbVPnRJGcKBUtQXQiQWIdXNG9EBKvDeKkflYsEWiea ESpVIDpYCYbKEKbNWLhZEA9MPXlCrLwadNwFTlsrQQzVPDrNPMaUISzGLJuALN5PUFiQaWnlrEbWQqdk OItRPFdMBcpfQSrDVB3J6zrsNJpGIFpPQmbzOKoSCWgX4ihaWUgKOdsXPBbgVPbUjkaHWRvkVRsUxDxW 4ykPDIdGrZqI6CqkJc7AzFnFWIxznXyiJApsTzqrMEi ZBJ2QAMlJZLjYDGzGZR3PCTkUqZovtVsCDebzEBfMTBmEOGoGDXlIQCxGGT1MICjYrLrmeZxTNbfoYUa ZBDeQEUsFYImYFEtXLO2UJYqUiLicsKbVVwhqBTeGKXuNPXjRMBdFJRtQGD0FAIqZeHjenVsEXrfcFSy HPTkAGrzzJVlBJI4Q0jkrEHyMSJhUMjmaXPwDKOxC9y acJJyMOtcGTPriRRjUtxbCBWnbQSrDnLiI9toPHIiDeHaR0JskDy9UxKtPMYylxHplU23Dxhtg3DjNYF qGYC2KPjyYMjusEpkyPJgthlxKNyriiCzWEcooerkSSCpRPuqE0lvXtMtXOUvuKgwARyuq6NkINWeVAZ gSqybesVoEHWzEORtPFRvqQ0mEwicX4IdzI8dNRpzHf elC6hhPSFwp1AziY4pSNnoqRNllfuhLHltvoAjBNhqejwgALCsPTrpQ7thImWlIFXgnZtgIOdix0OoMY GmJMSgVjaurtRfSGr0heYeKVWhxCsphHByUKqkegSgmPukb5KdjiOelObcCUKpPQi5nsGtkbthsQl1jJ WkvVriSEXcsQmlpV4vDvRaThXwWMtctVQrzfifMCdap tCdFOoafynkDZWmLKriT0ntPbWeXDIlrZbmKRsnv2ThBKDuUCAzZtajznXxMSOqJ65xaCJsbODtYFMrJ MjoBXDdXRAtHiFfxYOsYjYyPqFjsVrlhEpfTKluGfUjZZRiGZtyY7obMnAxZ9SkHTPkTsTzxJPiF6tfS 0TteLhrNBIyVYykvIUeTKXbwTLgDZA9dSOewwXimOCd gGYsILFhSSmfPUO1vIFasnhfdWAaaccyCWosjhA4BHFpDTemQMPxIJEdPcBnwESmOkOvPdGhjOeidAjp UXsdUcZvZCYpVAyqY2rzWsJiM7IuCEUbGvCfRfYAMDIbxPBbYQwpgZBcdvepEEzaerZqHVldgzukXEOr KHywC8bxNbShAPTpfAmoYZasx1HwKQTcYKXhPpwdfpJ yARb0fvEnJJUxtTbxeK02Cmmqft92UJFyz6yzOROxU5PboBGcXQHyiNTbSEfyLWqlkGFyOHQiDlnjVXP fcXTfOUMuVRjyzISpTXLxTcWrUHJgvDSdJIZvYXPuqIFkQQI4E7x2bgHbBOAaWXs1lvWdCKEgMtKhnEX sHZX5OFi1UneblhL1gMRlY9j4HzdyunLjKXircKOlal 00RROsivOwaVYveFafdUIzKBC2OOZoIYOkONOaPTA3UVTbGmAiwyWgHSletCZsEEMaJZMqLFJePEXgUT H6NLSrEoLeawTsQDvcxPQkIQDzIPBiQMEqXIMfONV0RFKwSpDrxiFgTRmvgRDkGGGbXHFlFEAoFUEvTT N6OQTxEcQehzSuDLrbdRUtKADeDMuqxRGvOFZ5A5kfx SVfGBShIFbssSTiIJDtM6tlfGPmFBixDKTazTFiIumtEBEcyGDdXjUrO8zyACXaYhEqY2BieUb6ICNxX DIozkArbVZdhJccbQQhCPB6KBOnNZZuMRDmVFI2WHHrHnLtqlBvFSezdNNdDTMfPXVcUAHxOGFgNQL3Q VIsZiZmwoQgXCkbkFHcMFXrXGWvZUExVAGxFUH5UXLt GgDooqVmUGazjSZoUAPcNKIqEIXnBYEkGXJ9WDKlQwGbacIvYXbbuMIlTNAxRRfilULlLVS1H3ftjEJa IDRkHFqtfHFkLOSyL2etlCAjDNemLHBdrISnAhlnEBLijRMyYpRkP8ctGIOfStDyK2UvgOv1AvVjALFh diIndGBdpQdaiNJmWHZ3NLZqIHJxZTKnHUR7ZASaVbX gmzFuSRttaBXeKIBhDRDyXEUkCQDcLKA8RIFgOmOkbqGpLCtciJEkGHVxGCOmXSZrTIFrPZV4YJOhRfJ nrgEoZEjlwQGeZCTiGRGhZEFhAKBcLAV6HIHqBuHyqiSgSThtgRJwWRQvTNcugJSuBJX7Q2ksvPHcYHT qLWvwsLSrVFCkA3wfhHIhWOucEPLtdXDfRtorBWGmeH PnSjAoF2zkZPTxZuAgG7RjuZg1KkHnNEIntuMneC10Tukoe0VxIVJmILI1VSttYMxpzCujmUWyxofiMM ehlaA5FEXuOPsuGGUwIFRrKpAklCPdCzVyMmHtcBioyVkkBZvdRkIzGCOkBMobZ5rfAhLyB9IgPOAzUe WfEO7wWxV6VOOvLcTwIQEfMEWYBODiHKHNM1CAZjdmB QHPC9CfbFccwA0iUuXwNfItTAsiAI8mVKLpC6kkcLDmZFDtBHLaP6zzSdTgtI2vuSmqKSqkNqHfAfMfO TghxXRbcAauGZjsOMMbxsDkwJ28Qkwxs5MoLRPqYIU9WOveGDmkaHjhjVGzkccgSVqretY4IJZmZIczI GYxXGZzMjBcbGFuZzEwMzNcaGljaFxmMVxkYmNoXGYx TGukG4tkGgXzX3UuVATuVwUlZG1tJzBiObOjcVrsjS4kOuGgGoVdWIeeTC4cPZHaM9cpzFIbQGPtDKEj W3qyXfBfyM3ymFulDQwrSkRwIaFrKScsuOAyxJjoSIbnXWJvpeSguK54Ffwsu8NeDDTbQIN0FQvoZSbo hAogeBRufujiSJwwscY9HQYeZXieGCXuUCQjUdQnbJF bBeQsSzAbpNnkuVxlIYcqByRwHAFgPFkrS0veNkWkH3ToLOEjNkMpMVGeIgOhVoDkKKtujYNqfkzqGCi mytQvBEflyedtHWBuBLfpB6mjBeIvGJZebKazXZpyj2EmCWQzLYWuBtaryhPdQMd3ssDnRAFekKnpoU4 4Pjvhzm05UFDvkaHwn6TdXJWoJYS9ISrvXSjwvTsinN BgjaqmSHjhgmW0OJZgBJtyUWUpDMPcLxAquDUvNeDmWtOsoNracAfsXPrjOhAaXWFvLCdsN0ekGkQsIj MyMFxwYXJ9 Addendum 2 y9ffnWMjPLWmaWD1MjYuAMAew4atr2VtjSEedPVvOAtqdSVqbxXsoc07mPB2vR20EU8hWHXmFwX1RCDm ixB3Uqp2DFRsWJUfiWRxX778r7kdi5fzusOaiUN5vEhxDVNzjmhzOeE5ACgtXKFptetgJIp1RGcoIVKf hAQ5XMOpsPNpL9GhWEZaIL6eaei5DGL6SDpeUBYiDpA (test code 6NZKzcSKaZIMhhHecYFnvv310RKS1ZuEfUCVfzbVgkLkbuN6sEcAuSXSrf6dzFjvhyiSNkG3bvwATMOX dnGsdnHFoJfjfzFQwdOSpgPhaOfTkXBTTMJI1PsA9vQYpUXTxl9KkVFGdDQWnBZNvZZI2PHskGESiIUE qWIZsXEZ4FPlpBiotPy6OH8RjyDCdGWSRHUxPIcGht3 = 38) YdjIIjhXNjSXBqzjGMDPilKCPwfODytCybuafukRqauIxwvfIqwXWncPWij8EvaAhehMOnpoPsbS68RS Phx5qnGIObAG5lZFZxqYdqk65iRBIbyeEbFQwYPYJfMExmsiMiNHVzj9DeBXMaDZUiUKEuWA8yREGgg6 5aiEHchxoqmZkxZGQpr4LdiA1aGKZhqAcjEZBxS1Y0E OQjy00hmTfmCJQ5Re5bgYMvNJM8eERzoOWyQihrY9pgMHBvQLWrOUHrf82gnMKkUAowedIniBNyRWVhE RajocVAhSJkHThXMgldGeN5GSXrJWYlTItbkVc5UWSwb1QlbSfkdALSlOYnSXvGFu5kmUYkBTSdsdHLv IludMVnpT3zYJQzt3sqJ4ryGCIwpiQbiVJ8mE9hZKvu KD5wJ7Sii5MchK7xDGDlvgzqCIMnYJWzei4= Addendum 1 g7tptJBgNDIwzDY3IeOhPJXua9qsx7ZmfSNbvVOtHYdzgQKpfuIvxs85hWF2oN80UQ4oWPZbJgX0NLXh juU6Hze4CKIqUORzqOHkR017z1jhk3pgwvRcbGF8CNWlXJFmX2UoVU3sUWFkvZKvC94taQAjVEH2TNZy TEUjcXZjSVDxLMM4WJOjhUNnY1ljSRPmZD7nmztuPVs (test code oBBhgQKAjoAY1GAWjoHVbY4SzRGMrGPpvDBLwnhu3JrNnQt5feCVztWfvZVdzZDNwDQQwQYbaJZObOnC tSVEmjEIsu15etBZgSQBohnxmpBCvPIHjrWEdKBJdqtWbHE9eTiHoRuQyID64mEXyBIPvHLQaZFGtdG7 qJptzJFIpBRTeDTjXRsUhTATpX2RyYZlmXJNCMfylHU = 37) UWYZ4FMbbuQJDZGtcvR94wmZCkkALlYV5xOSJ9FpItHtIpXwPoXRyfJLVizJBeHN7dDYYpQNz5sH9eSX tfw9H7NAyoy8zqcLMmSDFeUNZit1IrAEBwXQYli6YvJUdnbSNfiIDlgIA4pL4vAFVowZUiweViyK7gaN VjC3OqGwldNPU6 Diagnosis o1mhwTCmNTWvmNM4SgIhMWIoe8huu7OubNVzlJHmJAahfDLajgJlea41vEH2iN82FX1eGXCgGpJ9KVCt chI2Spd1SCFbBZLbzRZoS253u3pdc5tdphGvcQM9RHWoCARgS3WtIW3vFHOpcQWvP27ooRUhPAE5MCVd BYHgnCEkTTDmXSP4YAAoiFAuI5gyLUXlCF4pbkbfPNk (test code aWWitRRIgkCF6FGCerABfF4LxRYFpSXqkVDVdbon6NhWiMr3mlSSnhDfxHMxoACAxVSDwYAucVIEiQbI xC9OmOS89dLIuFHRuSPTdJcpTFDK7XIxlDzDBIdniSSMYHP1YU6IyWNYyANCFALWwa6euCVY4AHMlt22 zFG9pYuBhEiFzHurkDUQxW7TuEZQnpfhmjZuoGApfmL = 34) 52FuXdVSSlxSJknp4iqbyro76feNN0kAUbiNZhR72uHBGguB9hw6pojhUeSddxESQJIKietGDoDNkeWd L5WShifL96QsPtaXrnXhV3CIDURAaWIGRVUKCLLSBUGJ0QGaLYLVvJUUDMYEFHYABBX5uXAnANFRMVH4 7qH7iGTNQuX2kCGTHuB9XUYGODAQEWT2CDTIuRBl2QN vxVPcCEXFDBNn2EH63PDFZAYSJZAWKYC8XHUYoyUOAGC6DECAXOZDUKVOTLMXXkAQWLJJRcqSAsDIMoR MWxr41vCF65ZVPxlg8= Comment t9ytnPNfKETakAX9ZeDnSHDek7srp3TnfCKqdMZeSVihwHZubiGiiw62fZS6oC00OO4kLVAyNbP9OWEm wnO7Wgk4FYTsVGFvdYKlD747u3mic3ltgkRnxDG1mQsrAEQntnahQlK7QZhdIYPkvtvlNSh4LOvmOOBp qOB4VDLdjEUqB2XpKUWuTO2erhq5BVB4WDkxLEHkKrL (test code 5OCTaiEGrOSBiuYcnYOnob039TYQ5WwKzUWNhwvSlpVmvnI2cIiMxGFQUuBNbL3YgVXV5HYSqlHYzuuJ hTXFuFUNoqK5pNKSqwIO4p0XxoYvcnH8yeLOtAUL7bV3xMHRna44wQ3Opk4ZupLpaioVsjaXLZR2aQLa gWpXmFl8qpFLwDEFhfPTjNERmJPSmS0Rfw00aJVLdzC = 9835) 8jl8ZfKGCfGEHqGLvbPK90lcEnRtXsjXzgyCXwqDXvgLVwiU22esZmmFh2hPHwaLMeOMmzqXmvE3clTK TgE9IaxZClvHIwS2PtEDlaaz9sjttpTdNpsUDjm0Vspu9iG8YxugFcgOavp6CiDjTWpgDiENSuU5catv fpOWsxeBfqdZSiVNLxqfBQfMztJYG3kFWsnCX7iFNey DMrIXVkGZVdHXScAHLctR2itXx6sYIesARewO2sIOmlPRIgNIShuyk5cT5axNLgeiJsIwLNbYZqVQG0p UnoTNG8Yw9drQVvXHFurPMttTOxluBfwGAvyMOvCTFhPZGptRRwOA0zpCKvz5SjYsPkibGlmyIpSQ62Y QAvxeZfc9JaeGtlBKXbkMuzUYPwOIJkr74tVSTysjdl WWBhUTOeI5itfhjpJQkhdBGpdcLxN3E3ZHFoLDNbQXWsCZl9sV3lIKlhUgkvlPK0WEikG2o0URyxGpGg fEYelR5adZstfwDtOnKzTK8gjEecWHD6OAC3qBJ6ROCfsgFLJBZem6OcfZYkIG7eMPHmGMVvBRWtf48b nMOiflZwb48fFD7dXKKyZOslCPWlmPKkREYrbiFaqNH 3vG0hTHwgaTasN1abcjbdRBkhp3W6WLclOO8uEHEzd0BmqXGxs6Dcs8Jde7JprZKqdAQzxPWofX0cneJ cAMLhgXhbizYageN7k22fFcQwz8TxwApjcbYxxgPoDDQrn1YlfszfLIbbTHTpdYVdQSSofQOnS1CiOEE 0IBSof6Q5KWgkTDPqhgDaREboE9Tdq6ImPOR3KIDwUQ SeWSBxJUVqiWA9dN7wm0b3JDJeI1FhdIefT97hZyJvYP6eYR1gKWmi YXJ9 [employer] Leader d1khdKHpUMMzhCI7WeDbABQzy2ixv5WanWLzpPKwAVobiAVgfdDkba04cQJ6iW92PL6iVXLdFgI6KLZb kkO5Vhr6MYVbMIZaeAGwF173d1kvz5zrhpXrrGZ6qWsvGSAivpeeBzC6URvgCOPcnnkkBZy3VKyuTNUb tXQ5EMLxlNNbF4ZyBDNkET7prdl4WMA0PWpxWBWnKqP (s) (test 2SBPbxVOcZLZgkGobEQfuv428AQA3TzQjRJEssmBghKkqmN4kDeDsRJUTL7CeOIDHPUbjCkwWBSHWQxr dX9KOSCBdcg8= code = 9863) Disclaimer o7fbmAQmTCFfpZRtOvOyPKBkWFKwm0kxVIFcrMNlOoXtPnTrKuHlOrvorLMnZTSmLuFvp2cvt261xABt b0elKIAfHkC3rHRrEHZngWTeV434UYMdJRoqz8hyr4ZoYZZzzNFni4R8TKADlrwplUj5pNwnR38pj5J8 XbcpX8ypHBAvPNLkB1MoLX7xCBMeAvi8ITT5FFV0OMQ (test code qWCVvD8DoEP8iGFNldPYiHDa9i5xwjVayZDRiNDP6a2psKZkbecNfYB5eyw7rcYf1a1rnoyLsPOPhYYH iiSYDRIPlB7PtgYrjBr9kjJz9hSohTchiCPY7Bdl7OZ3isy94mtz6aQqmPUUiryuyAeT4YDkgWQDllax jMGs5USwhTYDmuGB6HPTdaQCqD3EjJSHwZM6liid1CS = 9844) G2CNgySMFnDcC3PTDyuFQsXAIypUkbOClab442WJB4WiSjCM1aM3Irk4V9eM9epCFnUAXgqJAcFjXlNF Hrjc9axUGrUWtan4ZvJXA4jyR0oLTpbNGdDFJxWK48Nniei0XbVeqlAXR0PKMemhNmm0Vqb9caYwSmsa FeE5bmA8RsPAIrRJRpWPPuPuMiuxPpt3Yfa4SfeFDer Gi1p4cyQSZqSHXggNbdq5irHHV6HKTmC9S3eVLte7qcBWkeXVGpvUG1leS4RSUokXWkT1SqxG3kFLMlD V2pqbi6l1qxHLC5VDuxOLFhGoN2zpV0LGYtvHGaFTFyjQqjLBaqh235JYU8AqGjBJIoi4ZaX6CrtTpwO 48jfIxdK05yDPJezCizcO9axMhczK1bOxUaPbRyEYax jVxrzJFraoigNSfxltE8UAxdkcxgUKFuOHfjP8wiVpIbAZPwiCobQHtdk3QaWKAsSAPrSdlwinF3ONMW e97kZWQak2OeWGXswB4znYPfSMzlqaLciHW0ZRzgsiPoCeFajcHvGODywC0aMTScOX5pANVqioUsvz9g isBaPDAiMCVbG6OdxpalmFxhpqExEVTrea8mgvQyVPJ 0XWJUBS9GRNAnGASlr08cAJKxoLpoyC0aiBHglzGdXQAdy4PezP4ktPITVQZrM7qiGU3tHWkyy4PbpNT haHEjnGL3TZWhh6FhMtAjclCvuSCprJRzW8UwhXsvE7jyDHNiVHDfuiDazKVvh9NzFHIpdEP4tGOoVM3 RGtGIj13oFSYzTEBUbvOoEHBheHizyDW6vqE3rD1aJi XNCvFxqFHgbVHsRmqnYKMkd456me5ygbZ8YELgAMGinxacb7LnHGGmFGXwrZ18ANFtRYPitj6jzzwscQ DbdqIgG9Scthr9fM3nMVYoPMzrRTToWVBlFkDxvKSjCpLdEjEioYhcgQhtJShkOdAlDHWpNIerW8zaTi FcZnMyMlxwYXJ9 MD [facility] Mygfymz7562-50-17 20:51:57 Test Item Value Reference Range Interpretation Comments Final Report (test No growth code = 8488) Path Review - Immunity and antibiotic Bottle/Isolator use may render culture (test code = 8499) negative. Ongoing infection requires repeat culture. The results have been reviewed and electronically signed by Pathologist:Tash Bui MD, PhD #[id number] MD [facility] Dddhcbzsjohaqy6376-21-49 15:54:43 Test Item Value Reference Range Interpretation Comments Submitted Clinical History g7ollGXrFIXbt7bhMLQ (test code = 49410) mbGFuZzEwMzNcZnRuYm pcdWMxIHtccnRmMVxzc 8NyV7UpNfJvEKsxxwTf XGRlZmxhbmcxMDMzXGZ 0bmJqXHVjMVxkZWZmMH pmQi1daWKjyMhhVlSoH FQvt7axqfXYvupyrUu4 m2fjIKCbVeR9wLHdIJs hB9vhmvJokRYcMXAmGG e8cJ09KHIfpV6nvQJpY QmpzjEfPiE1PLiiCTVa MzA7JMNktCBdZIKbH2g yZWQwXGdyZWVuMFxibH NoXQO2sTfgk6N1jYWzx GVldHtcZjBcZnMyMiBO t7GqINq3wAefT2QtBCL eBlS2mLHeAWWtQUgwQX AxKRQxneE1lJ74NUemh tL4bVQii3Fqr28ir797 cZ6ryBSsVGR1CUUiUEQ vzYPgHGWkDZW0XVXpdX OdK2meRMMfJB7eehayL EeeYUepKQIxeGF4GZYn vAGeO7FvIDGfGSqgWZE zcor5HoLhXq1mmLQyfV mbIRaok1vyt4hmoDTcT hi2IHHqTyMdGtcjYUzd i3Zen1ayJYYdtc2fIJJ 0kUKbiQwze1B4iCGlGR ZpgXIltvArYJMcQkD5C DgfQF8ndh69BUBgRCM4 yg8uiLDvoUthogUeaYQ wMXaaR5LyMCJnf116TT BlT5HtNTYpx5M0xuVqA xKeEIYpyQU6agH3JLBp QDg5oHXxpjU7ieYqtAC jC5ypwG1yDQHaUQ9fun hha3pxBDjnVEcmQCMct DF0otQ4SHZecTBuW7Uu mK8cFHNyXZgkEHCcarg 9JpGdAe2goAKuuBprUZ xzYmtwYWdlXHBnbmNvb nRccGduZGVjXHBsYWlu XHBsYWluXGYwXGZzMjR oaUiwdHhxbI1zJoErDb HjELlrQU2wFYLfH6asr HWhCUKdSZZxJ5ccDeDe wW8rnDwqNHpyzaPgQOR kXL5xNBJquHHbcJ0sH1 lfz77jJjIkbS2sVPQze 6MfIJeKHVYuCA4riQyj gM4hLrRdZpKaKnbvGD7 rWEPbV1lzhLIgVATjFN VjZ6aqIxDmzP1ctYbcO DwvpmFfLCIugr54 Diagnosis (test code = 34) o3zdhYSoXMUpdOE8RdT kRYRar2qex8EswWGtyH IkMEnowANkywQsub61w CJ9uU69YJ9tOZNcQwD4 QHSvoqY7Vih2OEUeMQP zfFInF360e5dda8rcsj DerKT3nRkmZYXjxbujY wW0DOufUZRfmljwCLp7 ZPnaTCHksKX4TDLosML jU7XfGWCfZD9pcic6BC Y2OFelJTEnObE0DOQxv GJfXGTmsWivQRkqh148 HME4AkDdDUXqpqOfqLc jxC6zUsYyIAEEUhHoV7 0ns76pQERcB9NdJHMjs DwcXKWrzB7wk7o7XXgp rqAjZPh3OLOhTLIdxFp pojUrFNSnw93xSQefdq JcZu8fTZD8u2NvtlGzQ RVzmX9iUU99gDDlsI4e t7x4SMKatnWgHBVjWjU TqMYgO8FjJNCmgLVeqZ aexWNyc0d1yNAvgLStt uhtSJHoySHjStUgqZ8a QJ6peJevFQbwdsDoQi5 qJHW6g06eV2jxCDQgaD N6jNltCzfduEE5Qctue S6bPHDsiMRaEPLeoIXk jXF4kRLsXK83M37kGBC 7sMPmMFTcIWW7iAPdIC xlu1Mhm4OgiIu1QCkga aJwEJt2QOCkAf7fxM42 LVU6oV3mmHMxCNSksLq ak9ufGB0sAXloQDT1kF 2jxNPbGBCRLWG0ZPypH GqqpP5rVGCwSVQPkM0l BLBvCPShBDQ9wbxiBYS hDOitSWFat1GmxQzwaJ luZSAgXHRhYiBPeHlud DhjWF02X05cYET9pXIx RA3vzIAhB6tae59qDiP fodPshUr7XYAyZGP4gy h2rKBitPagMMVdMKEnQ dLNmzYvgpRtp1JxnfPa UN4vfQKcxFUirXKhw3E aPF4gvAgjj8UgPNxRHb Jpm2QdsB9oYEynxfPzC W4nKHCdsT3rJVVvh3Tt ztRmdtolS71vo48ytZ8 axLEiWDFbh5GhqHdmtE luZSAgXHRhYiBMaXBvb WFccGFyfQ== Gross Description (test y9cusUOqSZEdlGBGJPf code = [id number]) wMFxhbnNpXHNwbHRwZ3 NevtysWBrvCG9zUB3vy CnfcSAhfBFeUX4GPXCm ZmYxXHBhcGVydzEyMjQ zFYIilYZazGX2KUDiXE 1hcmdsMTgwMFxtYXJnc mA3BWAndHIgI9IxSGBv UL9gcfraAQI0AAzedN8 cqvPDWrgvTq2znFVvuZ tcZjFcZmNoYXJzZXQwX BQcfVvjJVXlSVp3oM9U DkhyJ53mk8A4Ypl8TBD lJQFsC6PwKX9wITMeeW IrR80ZVrleCZR3IBQCN gprDPTiWR0Lb7ugLTXq yAQlGEK1WUzvmCArPUL aONJfFSh1WNGePJkxmT VeYH3lqSloBmkmtBceo 2VjdCBcXGlkIDUxMDAy NQdpRDElFU7AEvYgKMN xQRazOFSqQMs9FHd6BU 5YYaXaYFNjBGw2PlO6B EHjLHi4HLrsKT6TCWss VhO5LAJ8MXA5SLJvGtD cXHQgMiBcXGYgQXJpYW wgXFxmcyAxMCBcXGZiI StvOxnuHJtqN34wuJmc nF1pGwgacuHbKNL4KXW hciANClxwbGFpblxlcG ljTmVzdERvYzEgDQpcb HRycGFyXGxpbjBccmlu MCANClxsdHJjaFxiXGN hTXyazrWhUBTxxC9iEK TqTSJcdZYyg7p8gRmpW tAaJ7RuHUAiXWWlZvGi wATaMNIdy6B4HLChtcS nbWVudHMsIDAuMiBjbS NidnJcBQ02MFLmICQas nRpcmVseSBzdWJtaXR0 AUUihK2oEJNeYUMcaMT aiVZreQrqWfscbNX9YX qqIzasrT8nxPKHUMUFW kfOImqepvNpUV7DDQ6O ZnYLEC47SwRaDAB4BEj GQ9QXfKE2Cxc6OKz1tX tcZmxkcnNsdCBcJzFDf D6ZUAuvRnwnyUI7EFbw YxymuS5gcLNPQGCAZut ISyjfjfPxNV5BAI4LUH 2VqKArGPF1bTE9COUCL ndfqAV4mAH4qM36JJEi KBZoyNTfQItjQ029BXU rFWoaMTg2smZqFMDrMm FaRZbkPRRkV01vx7NHy 0ZhHVCmz8fshNhri6Jv dGVuZFxwYXJccGFyZFx xeZ1yZyEbo4lsaJv4XT rzgzR7WSXdce5boChzt C9oZYp2JKlpEEPdJ9Ps K6QoRSkdXEY9QSGjWxG cXGRiICBPVlIgIiBDMz F0TIQ1AoC5UXv3LJWWP zGbDdExJZZ6LNA2BKpl XCs6WTc2MUpRJaK9DWL hKED2NeXcUFD2MbZtWI o5HJDnGIwrEUCrhUPqA FxcZnMgMTAgXFxmYiBc NEJgRJsbtbU0UWKaCDb uXGJcZnMyMCBCOlxwYX TnTEgdpYbjgF5zLMVvT 33yu5NEx9OaWQ5ABDp4 qhMfmfvtcZ6yGUXuadV aUYhdbFOaE2qjPderMi NqMcZqLEDSaI8eYO14q CexXINgNQTgpF37JNSp XGNmMCAgTXVsdGlwbGU uc11rmKK0TS8elGahs3 VlIPTdOSnqVV31vhbsK I7dEZAuRJ8yTR26IPVl LCBlbnRpcmVseSBzdWJ rrQQ5XSAexP0fPbFoLU BccHJvdGVjdHtcZmllb DD7DGsyAofabW4omVIC WVBFUkxJTksgbmFtZT1 OXO5PUwOHYE91CcRoQO T4WBdSB8GPzOT6Psf4Z Wl0yFsgHumtdgPnmPNn WrRKkT1UJEdmSlrlwXK 5BEzuUrwntY4kcQWUAK MIVeeMXorddySjSJ0IR V2WHZ9QyVRpJDZ4ySZ4 JPJIFbsfxHW7xFW3xZ6 6XFRtEQJcsWBpQZphH5 88WZTfOVvbMJi0roLaV JYtHbMrYNrnBHNeJ19f t0CWg6AhIZUht8gywLg ev6EbgVXvLQxkNSCqpR NsBKgleU3aPcRoz2jje Vv1LOnuvsC5QKYjvj9e kEijrC0pAQk5JQlsMSB gT3QfL7RkHVfhDIR9UD AwMiBcXGRiICBPVlIgI dFTNrX0GBI4JtY0CTm2 NDBIGlKpUtXfYIF1KPK 6YpJuMEk7LMl9APhWMo L8HIKoVBG2DRexYRA8H eYxUEr0TQQjALguENBn aWFsIFxcZnMgMTAgXFx lOxAoDZCzBVtyjoJ2CP BsYWluXGJcZnMyMCBDO zhbEMVcUQoukRmtaL2b RGTjQ77xj9AHv9WpOP2 MZJp4eeLbxejjmZ4zLQ NqnlWoNJvrdZVoK4jvW wciVsTeNaYsPKGVrX7a WVNxSVPjabMlkD12LPL wXGNmMCAgTXVsdGlwbG Fwz21ygDP2AU0fkZvjv 9UzSHMgJKugAX51fsvj RD2lTZWlYO0oFP95BVZ tLCBlbnRpcmVseSBzdW YfiFQ3EVHybN3pEtEpC CBccHJvdGVjdHtcZmll dDS5AQlzVyfuzS6nxXW IWVBFUkxJTksgbmFtZT 3KUH0ZNkSOYH41SmRqF CC5GEeFM0DYnZB4Klf3 CJn4mZahZopyrdAweSS gGmAHnG3JVQcySbrbrE U8IZinRofwyH9nrCCFH AITOvxYJsnfwoWdMA5Y QD4WFS6RwWCpPKT0vAI 1SMJAQuhbmPH0zFE7qQ 17XGZsZHJzbHQgXCcxQ 450KZYbROnqQFp8rzWk TLDxYdGmZCxqCDHrO63 aj3IJr0LyAWFvd9qyqG bvq8AzuNVtKWkdCJTgh UTeCLosmG8yYzJnw1ff uPu0KWwbypW6DHMskf0 gwPltbJ6eMNz3LPiiCC LxF4VjW1PsIQfxFSP6A TAwMiBcXGRiICBPVlIg BcSXPdU0FLW0CcI3KGe 0LNAMNkGcXdTyANV3CE C3CxGdGFr6QNd0UNmOX xB3QSJfXVb7PINnTFA3 KqOaUWf2WFIcFAjhVUJ yaWFsIFxcZnMgMTAgXF ytHoVzYCMkMSvldiA4S HBsYWluXGJcZnMyMCBE OlxwYXIgDQpccGxhaW5 wNVXmR69gx7TCx9HiPE 5JVGe0kwUvuxuhhH4qF AEcfwStROloxASkH1hn YlxjZjFcZnMyMCBTdG9 wJCHuMWCnWZN0lffbLZ FoGLf6YVQsVSUvGQFwK MJrmKyerIJuc51pdRA6 RU2lyVzyf0RzUXMkLAx vNU78pdjrTY5iZWTwEG 6wAQ1oJHFsVRZnjbNux oPwiWMqqYGuwSV9YYFf hP0dFXRdWTIqwJHesUF tzOycYfncnBW9SAroAf xmfZ1lkNYHDHOSYegKF hatcsPvTZ8EUV2PHzJO OI71TdQiQTH7GOqBY7S GzHT1Bff6WRk9yLvdAb whrsFrsSSvBnOGiP8FN UjxMuvczRQ8TJnaYebk oX3ytEWABKZRTkqJWft fzkQrIA2MKU5VFA1SdS VbWBB7vEO7QZFLPuujs UY4cIT6eQ54GKVzLELe zGAhXRasF373JPKfTPn hVYg8ecPwDAWcFbDwAF spKLHdE54wd8NGu0SxU WUux4jfoSbfu2OpkKZg ZFxwYXJccGFyZFxzbC0 gIeQip3fttKg7XIlsfz H9YQBova9ahJgcoN5bD Zl6EValJEJlW5ZrK4Tk ATplLPL2NTKyAuYqXCX rXBGTKvEmInTWJyJ7PT S6MgX2EEv3XVEGAnQyG vUbCSB6ZDQ3XhQgMXx6 VQj7FHiIDrF8CVQiRHd oTBEaCAR7XoDfEEl0SQ IgXFxmIEFyaWFsIFxcZ nMgMTAgXFxmYiBcXGZs CSxpobT3WEKyKSkjHUI cZnMyMCBFOlxwYXIgDQ pqmHiieA1qZSCrC50ni 9QLu3YyVC3VAGu7fvAm mvtwtE3fQNCsnuVoDPg hcPEdX0naKcknCtRiEr SjXYBXx9yuykseWJJeA G5ofU9oHJDnnF2zCNEp gJLrHQIaPEDtcHwdz30 mNPkaEzJiI4PgWMSoTN OlUNFxj7HhcTcchX4eW WQgbGlnaHQgdGFuIHRp d5U1KFDvboRseUUsnKY sIDAuMSBjbSBhbmQgMC 6pVWOdoQtlBS94eYMpf Vjrw1NesCd2mTOuXOfw UXBqOkZhBVTon4WiD2U 0QZWnACrgq3voIWHkPW lrj5AfVWhUKDPCWE2TP D2mdJS9OHzIK0ONO2yS cOCbLTQ3tRZ4JISGBbq vuUN0jSQ8zR93DAFiDC WnsBYjUEleL547TAC3H ZRbVDeyx8saUSZiVEln y1JtULmVDMYKHE6SIZ2 twRV7ZOpBD9UZCSabKH GmTrwkbBGHGZN3TZdje GmjiZd6o8rmiGYoz3d7 DSzrRWN3fHfgxGPzwma mgUSmbFyhogIgYG5QUF YivHZMAJY8II0lUFj4A YtqWKWsF5HlS0VwiwFn lKYtSILxneQpe7hvMWV 1XHNsbXVsdDBcZnMxNl vwUWG4IOAzZEziET3VU HCnRXP3VPgzoN67iVFe AS6GLGHmGBimUOKmAHW zndY3SNWqcJQlWUT9XJ 2dlDombFNrybfotgK9K A0KfQ== Disclaimer (test code = l8bxiKGrTRSdeZCjSbQ 9844) jELOtGZPuk9skLXXstF FuZzEwMzNcZnRuYmpcd ZQbPXLyNvUhb8ntl088 cTVgj7ujPERrBkN9eIJ lSTPssNGpV412NQQcHY fez7yuv6QnQTOkdFSsk 7M8JAAFshxouHy6pHxx E56qc8C1MfwzK3kzFYW rJTPaR1QvNK3pHYIrSg f7HPL8HTT2SONwGPSlQ 8OeZI6mBVHynSKhNBr9 x2zqfKlqGZLnDTU1k6q dENjgbgPnQC8aed4nqW u3l2kocoKfFNLnRHUnb OGVGPEuF6DdbXbhNu1o dVp9bXpxFnmxNKA6Hbq 4QF0kgv09aip4iOiqXM VrdgzyUlP4IUzsGADii fvpEMh6HVayLOSklVT3 WVMutZEcE0BjXKBnSP7 lrla6QPQ9AZwqKMFxEh L6ATOymCJpEYNwcRhlS Wpdr022NHO4KkVrHI2h I6Vok6Q6pG1ubKMaLMM sgHElRyGgKIYzss0ngM XyORyqp7IgUSA7puT4o HQuyLQoEEUpCU56Lhlf v3JeZbhwRLH6MDRfvzN sg5Ubm0uoAcHdjzMlJ7 jeY5HvMUVgKRRlWWFkY pIxwzBlh8Bot6MmkFXa kYh5i5atSHEiLIZzzXc rm8flFCC2AJQxE3X1qQ Bxw5xySPomLAEzhAO7g gJ1IGDutGXaS0RpiQ6r FOFoSR3uasd8i8fyFFG 5TTrdBHGfDpN2msS9DA BcaGVhZGVyeTcyMFxmb 637VTF5DoErLBIiu1Xw T0JnnCkiD71haWzyK03 yIVPraQiefR1fjKpsrW 5cZjBcZnMyNFxxbFxwb HGawfwnHApbcqS0DCms ktxjVKWlGEnaG8rdLlN jVHWijZohZEsfn9UrHO YfUDCcZodmfjK1URNRg 56hQTSkc3TqTLLidZ2n fVDjPGmzmoUknUR6FSr hdmUgYmVlbiBkZXZlbG 6rHWXcPM7fWCWrtkFiz v2kbuArQWGvSQZvX7Kh cmlzdGljcyBkZXRlcm1 rzxNtPNO3UTOBTI9IAV QvHIVfj76vDMQnaYxrw J0eyGOfcmQhMFPfa5Ih mQ7uhAPGLZPeT4dhSU1 aGUnnp7FvlKVddLUwiH R8BGGki5NaJuMaavGot AGovLYiB9TmsCpgQ7pi HVNuWCXuzeYufQDpe7G oLWMmaHA1gUClHC9SKx UGa60rEPXgSQJNfsLkD CRkkPebfAH8soM4sP0y LiBJZiBhcHBsaWNhYmx pMNQoo175yb3hsyU7UZ TzZRLjmeyxl8KbKFHtH FRnaE97PPXcSSNxxt7z jhzuwVAjoeUrL7Esjmp 1qU7aACFvEHzkFDHrHO ZzMjJcbGFuZzEwMzNca GljaFxmMVxkYmNoXGYx CWkvC3hbFeCdRvPrNjt wYXJ9 MD CortezEjytfgpvVgkfwizcajfk0754-04-97 13:57:56 Test Item Value Reference Range Interpretation Comments Neutrophil % (test code = 64.0 % 42.0-66.0 88508-6) Lymphocyte % (test code = 24.9 % 24.0-44.0 737-7) Monocyte % (test code = 7.0 % 2.0-7.0 744-3) Eosinophil % (test code = 2.6 % 1.0-4.0 713-8) Basophil % (test code = 0.8 % 0.0-1.0 707-0) IGRE % (test code = 0.7 % 0.0-0.4 H IGRE % c ount 98835-3) includes Metamyelocytes, Myelocytes, and Promyelocytes. Neutrophil Abs (test code 7.60 K/uL 1.70-7.30 H = 753-4) Lymphocyte Abs (test code 2.96 K/uL 1.00-4.80 = 732-8) Monocyte Abs (test code = 0.83 K/uL 0.08-0.70 H 743-5) Eosinophil Abs (test code 0.31 K/uL 0.04-0.40 = 712-0) Basophil Abs (test code = 0.10 K/uL 0.00-0.10 705-4) IG Abs (test code = 0.08 K/uL 0.00-0.04 H 07051-3) Lab Interpretation (test Abnormal code = 69471-5) MD Cortez.PJF6910-30-20 13:57:51 Test Item Value Reference Range Interpretation Comments WBC (test code = 11.9 K/uL 4.0-11.0 H 6690-2) RBC (test code = 789-8) 4.60 See_Comment [Au tomated message] The system [employer] generated this result transmitted ref erence range: 4.50 - 6 .00 M/uL. The refer ence range was not u sed to interpret this result as normal/abnor mal. Hgb (test code = 718-7) 9.1 See_Comment L [Au tomated message] The system [employer] generated this result transmitted ref erence range: [...] L [Automate d message] 786-4) The system [employer] generated this result transmitted ref erence range: 31.0 - 3 6.0 gm/dL. The refe rence range was not u sed to interpret this result as normal/abnor mal. RDW-SD (test code = 61.8 fL 35.1-46.3 H 63974-5) RDW-CV (test code = 27.2 % 12.0-15.5 [...] cell differential. [Automated mess age] The system Nextt generated this result transmitted ref erence range: <=0.0. T he reference range was not used to int erpret this result as normal/abnormal . Lab Interpretation Abnormal (test code = 90502-2) MD CortezElectrolyte Udjnc3116-71-20 13:38:24 Test Item Value Reference Range Interpretation Comments Sodium Lvl (test code = 136 See_Comment [Au tomated message] The 3000) system which ge nerated this result tra [...] = 99 See_Comment [Auto mated message] The 6195) system which ge nerated this result tra [...] = 12 See_Comment [Aut omated message] The 9325) system which ge nerated this result tra nsmitted reference range : 4 - 14 mEq/L. The refe rence range was not u sed to interpret this result as normal/abnormal . MD CortezPhosphorus Rlcvq4061-22-07 13:38:23 Test Item Value Reference Range Interpretation Comments Phosphorus (test code = 6817) 3.8 mg/dL 2.5-4.5 MD CortezCalcium Jthyj9999-55-27 13:38:22 Test Item Value Reference Range Interpretation Comments Calcium Lvl (test code = 5258) 9.6 mg/dL 8.4-10.2 MD CortezGlomerular Filtration Tirw7086-25-38 13:38:21 Test Item Value Reference Range Interpretation [...] failure <15 [Automa annita message] The system whic h generated this result tra nsmitted reference [...] failure <15 [Automa annita message] The system Nextt generated this result tra nsmitted reference range : >=60 mL/min/1.73 sq. m. The reference range was not used to interpret th is result as normal/abnormal . MD CortezMagnesium Eevlo6167-16-91 13:38:19 Test Item Value Reference Range Interpretation Comments Magnesium (test code = 6359) 1.9 mg/dL 1.6-2.6 MD CortezGlucose Gfrmw5000-99-84 13:38:18 Test Item Value Reference Range Interpretation [...] diabetes Lab Interpretation (test Abnormal code = 50595-8) MD Cortez.Serum Fpgraoswtk0495-23-66 13:38:17 Test Item Value Reference Range Interpretation Comments Creatinine (test code = 5399) 0.86 mg/dL 0.67-1.17 MD CortezHfgyymysFLN7732-54-72 13:38:16 Test Item Value Reference Range Interpretation Comments BUN (test code = 5055) 12 mg/dL 6-23 MD CortezUrine Mbdrokk4729-72-67 00:39:58 Test Item Value Reference Range Interpretation Comments Final Report (test No growth code = 8488) Path Review - Urine The results have been (test code = 8483) reviewed and electronically signed by Pathologist:SHEILA MEIER MD #[id number] [facility] Glucose Zbnzko9822-98-06 21:31:50 Test Item Value Reference Interpretation Comments Range POC Glucose (test 107 mg/dL 70-99 H RN Notifie dCapillary code = 85259-6) blood sample s, e.g. obtained by fingerstick, [...] Capillary code = 9554) Performing Lab (test [facility] Main Main [facility] code = 88320) [facility] MD Maryan ludwig [facility], [address] [place] [address], [place], [place] [address]; Test And Turn Up Technician: Graciela Carpio MD Lab Interpretation Abnormal (test code = 07217-3) MD CortezCgebjvkxWFK5873-61-24 11:24:17 Test Item Value Reference Range Interpretation Comments TSH (test code = 2.73 See_Comment [Automated message] The 0901) system which ge nerated this result transmit annita reference range : 0.27 - 4.20 mcunit/mL. The reference range was not used to interpr et this result as anthony l/abnormal. MD Negropatitis B Core Total Szfnvyen3393-16-50 18:41:38 Test Item Value Reference Range Interpretation Comments HBc Total Ab-[place] Negative Negative Test Perf ormed by:[place] (test code = [facility] - 95267-4) [facility] [employer] [address] [employer] [place], [place] [address]Yio Director: Cb Westbrook M.D. Ph. D.; CLIA# [id number] MD Siu B Surface Bbbzwvsz0814-61-70 18:41:37 Test Item Value Reference Range Interpretation Comments Hep Bs Ab-[place] Positive Patient is co nsidered to (test code = be immune to in fection 70182-5) with HBV. ----REFEREN CE VALUE -----Unvaccinat ed: NegativeVaccina annita: [facility] mIU/mL --------- REFERE (test code = MEE 5193-8) VALUE -----Unvaccinat ed: <5.0Vaccinated: >=12.0 Test Performed by:[facility] [place][note 2] [employer] [address] [employer] [place], [place] [address]Mrf Director: Cb Westbrook M.D. Ph. D.; CLIA# [id number] MD Siu B Surface Ag w/Mtylixx3709-01-76 18:24:04 Test Item Value Reference Range Interpretation Comments Hep Bs Ag-[place] Negative Negative Test Perform ed by:[place] (test code = [facility] - 5196-1) [facility] [employer] [address] [employer] [place], [place] [address]Otr Director: Cb Westbrook M.D. Ph. D.; CLIA# [id number] MD Watkins RBC:G1049, 2 Sqjyy0083-94-13 03:51:43 Test Item Value Reference Range Interpretation Comments PRBC Product Ready 2 Red Blood Cells (test code = Available - 21277-1) Order Form 03 when ready for product issue. 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 No 52700Mcvvtjbn by: CAMACHO SUN MD - evidence of HIV 32133Jqjdysh d Date/Time: infection. If 04.24.2021 21: 42 PM ANALYTICAL CHEMIST acute HIV Transcribed Da te/Time: infection is 04.24.2021 21:4 2 PM suspected, CSTElectronical ly Signed consider testing By: CAMACHO Jose IN MD DINO - for HIV-1 RNA. 02275 on 21:42 PM MD Henry HCV Ab Path Sstsol5631-50-11 03:41:47 Test Item Value Reference Range Interpretation Comments HCV Ab Path There is NO Interp (test serologic code = 8923) evidence of ____CAMACHO REYES MD - Hepatitis C 46382Urcbetsy b y: CAMACHO virus antibody. ESTEVAN SUN MD - 17656Ozsrzftc D ate/Time: 04.24.2021 21:4 1 PM ANALYTICAL CHEMIST Transcribed Da te/Time: 04.24.2021 21:4 1 PM CSTElectronical ly Signed By: CAMACHO REYES MD - [id number] on 04.24 21:41 PM MD CortezHepatitis C Virus Ke1970-51-51 03:06:59 Test Item Value Reference Range Interpretation [...] the results.Perform ed at:MD [facility] [id number] [place] [address] MD CortezHIV-1/2 Antigen and Antibodies, Fourth Ssafbecdkv4504-52-95 02:44:10 Test Item Value Reference Range Interpretation Comments HIV 1/2 Ag & Ab, Non Reactive Non Reactive Performed a t: 4th Gen (test code [facility] = 9280) [id number] [place] [address] MD CortezTMP Interpretation Fnmtyoymhp0954-10-23 21:19:44 Test Item Value Reference Range Interpretation Comments TMP XM Interp RBC units (test code = crossmatched for 7566) transfusion appear GABBIE SUN MD acceptable. - 14498Xgwgnkpd by: CAMACHO SUN MD - 65399Rfthrewv Date/Time: 03.29 15:19 PM ANALYTICAL CHEMIST Transcribed Jung e/Time: 04.24.2021 15:1 9 PM CSTElectronical ly Signed By: MALKA SUN MD - [id number] on 04.24.2021 15:1 9 PM MD CortezVitamin D [id number] 20:32:30 Test Item Value Reference Range Interpretation Comments Vitamin D 25 OH (test 8 ng/mL 30-100 L Refere nce Range: code = 8018) Deficiency: <10 ng/mLInsufficie ncy: 10-29 ng/mLSufficienc y: 30-100 ng/mLPotential toxicity: >10 0 ng/mL Lab Interpretation (test Abnormal code = 46764-9) MD CortezPTH Ifnxqz1414-44-80 20:17:49 Test Item Value Reference Range Interpretation Comments PTH Intact (test code = 6769) 7.2 pg/mL 15.0-65.0 L Lab Interpretation (test code = Abnormal 42748-6) MD CortezCalcium Ionized, [id number] 19:05:20 Test Item Value Reference Range Interpretation Comments V Ion Ca (test code = 83577-8) 1.39 mmol/L 1.15-1.29 H Lab Interpretation (test code = Abnormal 21547-9) MD CortezRBC Product Ready for Pick Pj2384-45-24 18:21:02 Test Item Value Reference Range Interpretation Comments PRBC Product Ready B2 Blood Bank Product is ready for for 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 MD CortezTMP Interpretation Antibody Screen Sblacutl5122-13-74 11:42:15 Test Item Value Reference Range Interpretation Comments TMP Auto Neg At the present ABSC Interp time, patient (test code = plasma shows no ____CAMACHO SUN MD - 3835) evidence of RBC 62593Ipjdpwd d by: CAMACHO alloantibodies. MD Gaby LARA 78018Xrpqgemi D ate/Time: 04.24.2021 5:42 AM ANALYTICAL CHEMIST Transcribed Jung e/Time: 04.24.2021 5:42 AM CSTElectronical ly Signed By: MD Gaby JIANG [id number] on 04.24 5:42 AM C MD CortezConfirm [id number] 09:02:13 Test Item Value Reference Range Interpretation Comments ABORh Confirm. (test code = 882-1) A POS MD CortezAntibody Alotww0214-68-47 09:02:06 Test Item Value Reference Range Interpretation Comments ABSC. (test code = 890-4) Negative ABSC UuusqhpnYJHNr6851-78-15 09:02:05 Test Item Value Reference Range Interpretation Comments ABORh. (test code = 882-1) A POS MD CortezClot Expiration Wngs3187-25-40 09:01:53 Test Item Value Reference Range Interpretation Comments T & S Expiration (test code = 04/26/2021 5318) MD CortezFerritin Fyers7869-16-03 03:08:36 Test Item Value Reference Range Interpretation Comments Ferritin Lvl (test code = 5608) 21 ng/mL 30-400 L Lab Interpretation (test code = Abnormal 30866-5) MD CortezTransferrin with [id number] 03:03:17 Test Item Value Reference Range Interpretation Comments Transferrin (test code 225 mg/dL 200-360 = 7653) TIBC (test code = 315 See_Comment [Automate d message] 9332) The system Nextt generated this result transmitted ref erence range: 250 - 45 0 mcg/dL. The ref erence range was not u sed to interpret this result as normal/abnor mal. MD CortezIron Ffkco6580-18-03 03:03:16 Test Item Value Reference Range Interpretation Comments Iron (test code = 6066) 14 See_Comment L [Au tomated message] The system Nextt generated this result transmitted ref erence range: 59 - 158 mcg/dL. The ref erence range was not u sed to interpret this result as normal/abnor mal. Lab Interpretation (test Abnormal code = 48107-7) MD CortezHemoglobin [id number] 02:54:26 Test Item Value Reference Range Interpretation Comments A1C (test code = 4632) 5.8 % 4.3-5.6 H HbA1c values >=6.5% are diagnostic of diabetes mellitus.Diagno sis should be confi rmed by repeat testing.Therape utic Action suggeste d: >8.0% HbA1c; Go al oftherapy: <7.0 % HbA1c Lab Interpretation (test Abnormal code = 32193-1) MD CortezHepatitis B Surface [id number] 01:20:34 Test Item Value Reference Range Interpretation Comments HBsAg Received (test See Note HBsAg w as sent to a code = 01871) reference lab for testing. Expec t results on Hepa titis B Surface Antigen w/ Confirm within 96 hours. MD Negropatitis B Total Ig Core Ab (SCREENING) (anti-HBc total Ig; HBcAb total Ig)2021-04-24 01:20:33 Test Item Value Reference Range Interpretation Comments HBcAb Received (test See Note HBcAb w as sent to a code = 27975) reference lab for testing. Expec t results on Hepa titis B Core Total Ab w ithin 96 hours. MD CortezCOVID-19 (SARS-CoV-2)Pjcsxsnmllcn-[id number] 23:52:48 Test Item Value Reference Range Interpretation Comments COVID19 Not Detected Not Detected (SARS-CoV-2) (test code = 57134-8) COVID19 SARS Inpatient Indication (test Admission code = 89166) Covid 19 Comment See Note The [place] S ARS-CoV-2 (test code = [place] [address]) use on the afshin s Heather System [...] sheet for patie nts provided by the entry level programmer ([employer]) can be rev iewed at: https://www.fda .gov/m edia/890795/raphael nload. A fact sheet fo r Health Care pro viders is provided by the entry level programmer ([employer]) and can be reviewed at: https://www.fda .gov/m edia/927919/raphael nload Results must be interpreted wit hin [...] high-comple xity tests. The [facility] at [facility], CLIA Accreditation #[id number] and CAP Accreditation #[id number], verif ied the performance characteristics of this assay. Int ernal controls are us ed to monitor all sta ges of the test proces s. MD CortezProthrombin Time with [id number] 23:16:05 Test Item Value Reference Range Interpretation [...] Verified Lab Interpretation (test Abnormal code = 50619-3) MD [id number] 23:10:19 Test Item Value Reference Range Interpretation Comments aPTT (test code = 33.8 See_Comment [Automate d message] The 6773) system which ge nerated this result transmit annita reference range : 24.7 - 36.8 second(s). The reference range was not used to interpr et this result as anthony l/abnormal. MD CortezUrinalysis with [id number] 23:08:50 Test Item Value Reference Interpretation Comments Range UA WBC (test code = 4 See_Comment H [Automa annita 7904) message] The system which generated this result transmitted reference range : 0 - 2 /HPF. The reference range was not used to interpret this result as normal/abnormal . UA RBC (test code = 4 See_Comment H [Automa annita 0971) message] The system which generated this result [...] implementation of new instrumentation in the [facility] [place], allowing greater sensitivity of measurement. Urinalysis results reported by the [facility] using existing instrumentation, as well as Urinalysis testing performed manually or by backup methodology at the [facility] [place] will remain relatively unchanged. New reporting parameters and units will now be reported for all campuses. Lab Interpretation Abnormal (test code = 25244-6) MD CortezFractionated [id number] 22:50:22 Test Item Value Reference Range Interpretation [...] 28 g/L. [Automate d message] The system Nextt generated this result transmitted ref erence range: [...] are outside rep ortable range MD CortezAlbumin [id number] 22:50:19 Test Item Value Reference Range Interpretation Comments Albumin Lvl (test code = 2.7 See_Comment L [A utomated message] 5975) The system Nextt generated this result transmitted ref erence range: 3.5 - 5. 2 gm/dL. The refe rence range was not u sed to interpret this result as normal/abnor mal. Lab Interpretation (test Abnormal code = 48745-5) MD CortezAspartate [id number] 22:50:18 Test Item Value Reference Range Interpretation Comments AST (test code = 12 U/L See_Comment [Automated message] The 0525) system which ge nerated this result transmit annita reference range : <=40. The reference range was not used to interpr et this result as anthony l/abnormal. MD CortezTotal [id number] 22:50:12 Test Item Value Reference Range Interpretation Comments Total Protein (test code = 7649) 7.8 g/dL 6.4-8.3 MD CortezAlkaline [id number] 22:50:10 Test Item Value Reference Range Interpretation Comments Alk Phos (test code = 4768) 100 U/L 40-129 MD [id number] 22:50:09 Test Item Value Reference Range Interpretation Comments ALT (test code = 7 U/L See_Comment [Automated message] The 9885) system which ge nerated this result transmit annita reference range : <=41. The reference range was not used to interpr et this result as anthony l/abnormal. MD CortezUrinalysis w/Microscopic if [id number] 22:35:37 Test Item Value Reference Range Interpretation [...] NEG Lab Interpretation (test code = Abnormal 57001-0) MD [id number] 12:17:00 Test Item Value Reference Range Interpretation Comments GLUBED (test code = 215 mg/dL 74-106 H Performe d by certified GLUBED) control board operator at [facility] [id number] 12:17:00 Test Item Value Reference Range Interpretation Comments GLUBED (test code = 213 mg/dL 74-106 H Performe d by certified GLUBED) control board operator at [facility] [id number] 12:16:00 Test Item Value Reference Range Interpretation Comments GLUBED (test code = 156 mg/dL 74-106 H Performe d by certified GLUBED) control board operator at [facility] [id number] 12:15:00 Test Item Value Reference Range Interpretation Comments GLUBED (test code = 183 mg/dL 74-106 H Performe d by certified GLUBED) control board operator at [facility] [id number] 12:15:00 Test Item Value Reference Range Interpretation Comments GLUBED (test code 190 mg/dL 74-106 H Performed by certified = GLUBED) [facility]~ [id number] 12:14:00 Test Item Value Reference Range Interpretation Comments GLUBED (test code 212 mg/dL 74-106 H Performed by certified = GLUBED) [facility] [id number] 12:14:00 Test Item Value Reference Range Interpretation Comments GLUBED (test code = 263 mg/dL 74-106 H Performe d by certified GLUBED) control board operator at [facility] [id number] 16:11:00 Test Item Value Reference Range Interpretation Comments GLUBED (test code = 189 mg/dL 74-106 H Performe d by certified GLUBED) control board operator at [facility] [id number] 10:41:00 Test Item Value Reference Range Interpretation Comments GLUBED (test code = 182 mg/dL 74-106 H Performe d by certified GLUBED) control board operator at [facility] [id number] 20:48:00 Test Item Value Reference Range Interpretation Comments GLUBED (test code = 198 mg/dL 74-106 H Performe d by certified GLUBED) control board operator at [facility] [id number] 16:01:00 Test Item Value Reference Range Interpretation Comments GLUBED (test code = 177 mg/dL 74-106 H Performe d by certified GLUBED) control board operator at [facility] [id number] 11:42:00 Test Item Value Reference Range Interpretation Comments GLUBED (test code = 174 mg/dL 74-106 H Performe d by certified GLUBED) control board operator at [facility] CBC W/AUTO [id number] 06:22:00 Test Item Value Reference Range Interpretation [...] SCAN NEEDED (test code = MDIFF) DIFFERENTIAL [id number] 06:22:00 Test Item Value Reference Range Interpretation Comments STAIN ACCEPTABILITY (test STAIN ACCEPTABLE code = STN ACCEPTABLE) MORPHOLOGY COMMENT (test NORMAL code = MOC) PLATELET ESTIMATE (test code ADEQUATE = PLTEST) PLATELET MORPHOLOGY (test NORMAL code = PLTMORPH) BASIC METABOLIC [id number] 05:33:00 Test Item Value Reference Range Interpretation [...] >3 months. [Automated mess age] The system Nextt generated this result transmitted ref erence range: >=60. Th e reference range was not used to int erpret this result as normal/abnormal . CREATININE (test code 0.90 mg/dL 0.7-1.3 N = CREAT) BUN/CREATININE RATIO 11.6 10-20 N (test code = BUN/CREA) CALCIUM (test code = 8.5 mg/dL 8.5-10.1 N CA) CBC W/AUTO [id number] 05:01:00 Test Item Value Reference Range Interpretation [...] SCAN NEEDED (test code = MDIFF) DIFFERENTIAL [id number] 05:01:00 Test Item Value Reference Range Interpretation Comments STAIN ACCEPTABILITY (test code = STN ACCEPTABLE) CABOT RINGS (test code = CAB) MORPHOLOGY COMMENT (test code = MOC) PLATELET ESTIMATE (test code = PLTEST) PLATELET MORPHOLOGY (test code = PLTMORPH) CBC W/AUTO [id number] 05:01:00 Test Item Value Reference Range Interpretation [...] SCAN NEEDED (test code = MDIFF) DIFFERENTIAL [id number] 05:01:00 Test Item Value Reference Range Interpretation Comments STAIN ACCEPTABILITY (test code = STN ACCEPTABLE) CABOT RINGS (test code = CAB) MORPHOLOGY COMMENT (test code = MOC) PLATELET ESTIMATE (test code = PLTEST) PLATELET MORPHOLOGY (test code = PLTMORPH) CBC W/AUTO [id number] 05:01:00 Test Item Value Reference Range Interpretation [...] SCAN NEEDED (test code = MDIFF) DIFFERENTIAL [id number] 05:01:00 Test Item Value Reference Range Interpretation Comments STAIN ACCEPTABILITY (test code = STN ACCEPTABLE) MORPHOLOGY COMMENT (test code = MOC) PLATELET ESTIMATE (test code = PLTEST) PLATELET MORPHOLOGY (test code = PLTMORPH) CBC W/AUTO [id number] 05:01:00 Test Item Value Reference Range Interpretation [...] SCAN NEEDED (test code = MDIFF) DIFFERENTIAL [id number] 05:01:00 Test Item Value Reference Range Interpretation Comments STAIN ACCEPTABILITY (test code = STN ACCEPTABLE) CABOT RINGS (test code = CAB) MORPHOLOGY COMMENT (test code = MOC) PLATELET ESTIMATE (test code = PLTEST) PLATELET MORPHOLOGY (test code = PLTMORPH) [id number] 21:00:00 Test Item Value Reference Range Interpretation Comments GLUBED (test code = 211 mg/dL 74-106 H Performe d by certified GLUBED) control board operator at [facility] [id number] 16:29:00 Test Item Value Reference Range Interpretation Comments GLUBED (test code = 158 mg/dL 74-106 H Performe d by certified GLUBED) control board operator at [facility] [id number] 11:57:00 Test Item Value Reference Range Interpretation Comments GLUBED (test code = 101 mg/dL 74-106 N Performe d by certified GLUBED) control board operator at [facility] CBC W/AUTO [id number] 09:46:00 Test Item Value Reference Range Interpretation [...] SCAN NEEDED (test code = MDIFF) DIFFERENTIAL [id number] 09:46:00 Test Item Value Reference Range Interpretation Comments STAIN ACCEPTABILITY (test STAIN ACCEPTABLE code = STN ACCEPTABLE) MORPHOLOGY COMMENT (test NORMAL code = MOC) PLATELET ESTIMATE (test code ADEQUATE = PLTEST) PLATELET MORPHOLOGY (test NORMAL code = PLTMORPH) [id number] 08:20:00 Test Item Value Reference Range Interpretation Comments GLUBED (test code = 257 mg/dL 74-106 H Performe d by certified GLUBED) control board operator at [facility] BASIC METABOLIC [id number] 07:03:00 Test Item Value Reference Range Interpretation [...] >3 months. [Automated mess age] The system Nextt generated this result transmitted ref erence range: >=60. Th e reference range was not used to int erpret this result as normal/abnormal . CREATININE (test code 0.90 mg/dL 0.7-1.3 N = CREAT) BUN/CREATININE RATIO 11.7 10-20 N (test code = BUN/CREA) CALCIUM (test code = 8.6 mg/dL 8.5-10.1 N CA) CBC W/AUTO [id number] 05:51:00 Test Item Value Reference Range Interpretation [...] SCAN NEEDED (test code = MDIFF) DIFFERENTIAL [id number] 05:51:00 Test Item Value Reference Range Interpretation Comments STAIN ACCEPTABILITY (test code = STN ACCEPTABLE) CABOT RINGS (test code = CAB) MORPHOLOGY COMMENT (test code = MOC) PLATELET ESTIMATE (test code = PLTEST) PLATELET MORPHOLOGY (test code = PLTMORPH) CBC W/AUTO [id number] 05:51:00 Test Item Value Reference Range Interpretation [...] SCAN NEEDED (test code = MDIFF) DIFFERENTIAL [id number] 05:51:00 Test Item Value Reference Range Interpretation Comments STAIN ACCEPTABILITY (test code = STN ACCEPTABLE) CABOT RINGS (test code = CAB) MORPHOLOGY COMMENT (test code = MOC) PLATELET ESTIMATE (test code = PLTEST) PLATELET MORPHOLOGY (test code = PLTMORPH) CBC W/AUTO [id number] 05:51:00 Test Item Value Reference Range Interpretation [...] SCAN NEEDED (test code = MDIFF) DIFFERENTIAL [id number] 05:51:00 Test Item Value Reference Range Interpretation Comments STAIN ACCEPTABILITY (test code = STN ACCEPTABLE) MORPHOLOGY COMMENT (test code = MOC) PLATELET ESTIMATE (test code = PLTEST) PLATELET MORPHOLOGY (test code = PLTMORPH) CBC W/AUTO [id number] 05:51:00 Test Item Value Reference Range Interpretation [...] SCAN NEEDED (test code = MDIFF) DIFFERENTIAL [id number] 05:51:00 Test Item Value Reference Range Interpretation Comments STAIN ACCEPTABILITY (test code = STN ACCEPTABLE) CABOT RINGS (test code = CAB) MORPHOLOGY COMMENT (test code = MOC) PLATELET ESTIMATE (test code = PLTEST) PLATELET MORPHOLOGY (test code = PLTMORPH) [id number] 16:50:00 Test Item Value Reference Range Interpretation Comments GLUBED (test code 215 mg/dL 74-106 H Performed by certified = GLUBED) [facility] [id number] 12:01:00 Test Item Value Reference Range Interpretation Comments GLUBED (test code 187 mg/dL 74-106 H Performed by certified = GLUBED) [facility]~ [id number] 20:23:00 Test Item Value Reference Range Interpretation Comments GLUBED (test code = 232 mg/dL 74-106 H Performe d by certified GLUBED) control board operator at [facility] [id number] 16:36:00 Test Item Value Reference Range Interpretation Comments GLUBED (test code = 180 mg/dL 74-106 H Performe d by certified GLUBED) control board operator at [facility] [id number] 12:14:00 Test Item Value Reference Range Interpretation Comments GLUBED (test code = 221 mg/dL 74-106 H Performe d by certified GLUBED) control board operator at [facility] [id number] 08:41:00 Test Item Value Reference Range Interpretation Comments GLUBED (test code = 228 mg/dL 74-106 H Performe d by certified GLUBED) control board operator at [facility] CBC W/AUTO [id number] 06:22:00 Test Item Value Reference Range Interpretation [...] SCAN NEEDED (test code = MDIFF) DIFFERENTIAL [id number] 06:22:00 Test Item Value Reference Range Interpretation Comments STAIN ACCEPTABILITY (test STAIN ACCEPTABLE code = STN ACCEPTABLE) POLYCHROMASIA (test code = 1+ POLC) PLATELET ESTIMATE (test code ADEQUATE = PLTEST) PLATELET MORPHOLOGY (test NORMAL code = PLTMORPH) BASIC METABOLIC [id number] 05:57:00 Test Item Value Reference Range Interpretation [...] >3 months. [Automated mess age] The system Nextt generated this result transmitted ref erence range: >=60. Th e reference range was not used to int erpret this result as normal/abnormal . CREATININE (test code 0.80 mg/dL 0.7-1.3 N = CREAT) BUN/CREATININE RATIO 11.9 10-20 N (test code = BUN/CREA) CALCIUM (test code = 8.3 mg/dL 8.5-10.1 L CA) CBC W/AUTO [id number] 05:37:00 Test Item Value Reference Range Interpretation [...] SCAN NEEDED (test code = MDIFF) DIFFERENTIAL [id number] 05:37:00 Test Item Value Reference Range Interpretation Comments STAIN ACCEPTABILITY (test code = STN ACCEPTABLE) CABOT RINGS (test code = CAB) MORPHOLOGY COMMENT (test code = MOC) PLATELET ESTIMATE (test code = PLTEST) PLATELET MORPHOLOGY (test code = PLTMORPH) CBC W/AUTO [id number] 05:37:00 Test Item Value Reference Range Interpretation [...] SCAN NEEDED (test code = MDIFF) DIFFERENTIAL [id number] 05:37:00 Test Item Value Reference Range Interpretation Comments STAIN ACCEPTABILITY (test code = STN ACCEPTABLE) CABOT RINGS (test code = CAB) MORPHOLOGY COMMENT (test code = MOC) PLATELET ESTIMATE (test code = PLTEST) PLATELET MORPHOLOGY (test code = PLTMORPH) CBC W/AUTO [id number] 05:37:00 Test Item Value Reference Range Interpretation [...] SCAN NEEDED (test code = MDIFF) DIFFERENTIAL [id number] 05:37:00 Test Item Value Reference Range Interpretation Comments STAIN ACCEPTABILITY (test code = STN ACCEPTABLE) MORPHOLOGY COMMENT (test code = MOC) PLATELET ESTIMATE (test code = PLTEST) PLATELET MORPHOLOGY (test code = PLTMORPH) CBC W/AUTO [id number] 05:37:00 Test Item Value Reference Range Interpretation [...] SCAN NEEDED (test code = MDIFF) DIFFERENTIAL [id number] 05:37:00 Test Item Value Reference Range Interpretation Comments STAIN ACCEPTABILITY (test code = STN ACCEPTABLE) CABOT RINGS (test code = CAB) MORPHOLOGY COMMENT (test code = MOC) PLATELET ESTIMATE (test code = PLTEST) PLATELET MORPHOLOGY (test code = PLTMORPH) [id number] 16:06:00 Test Item Value Reference Range Interpretation Comments GLUBED (test code 237 mg/dL 74-106 H Performed by certified = GLUBED) [facility] [id number] 12:35:00 Test Item Value Reference Range Interpretation Comments GLUBED (test code 271 mg/dL 74-106 H Performed by certified = GLUBED) [facility]~ [id number] 08:08:00 Test Item Value Reference Range Interpretation Comments GLUBED (test code 233 mg/dL 74-106 H Performed by certified = GLUBED) [facility]~ CBC W/AUTO [id number] 07:56:00 Test Item Value Reference Range Interpretation [...] SCAN NEEDED (test code = MDIFF) DIFFERENTIAL [id number] 07:56:00 Test Item Value Reference Range Interpretation Comments STAIN ACCEPTABILITY (test STAIN ACCEPTABLE code = STN ACCEPTABLE) MORPHOLOGY COMMENT (test NORMAL code = MOC) PLATELET ESTIMATE (test code ADEQUATE = PLTEST) PLATELET MORPHOLOGY (test NORMAL code = PLTMORPH) COMPREHENSIVE METABOLIC [id number] 05:54:00 Test Item Value Reference Range Interpretation [...] >3 months. [Automated mess age] The system Nextt generated this result transmitted ref erence range: [...] ALKP) to change in reagent. CBC W/AUTO [id number] 05:12:00 Test Item Value Reference Range Interpretation [...] SCAN NEEDED (test code = MDIFF) DIFFERENTIAL [id number] 05:12:00 Test Item Value Reference Range Interpretation Comments STAIN ACCEPTABILITY (test code = STN ACCEPTABLE) MORPHOLOGY COMMENT (test code = MOC) PLATELET ESTIMATE (test code = PLTEST) PLATELET MORPHOLOGY (test code = PLTMORPH) CBC W/AUTO [id number] 05:12:00 Test Item Value Reference Range Interpretation [...] SCAN NEEDED (test code = MDIFF) DIFFERENTIAL [id number] 05:12:00 Test Item Value Reference Range Interpretation Comments STAIN ACCEPTABILITY (test code = STN ACCEPTABLE) CABOT RINGS (test code = CAB) MORPHOLOGY COMMENT (test code = MOC) PLATELET ESTIMATE (test code = PLTEST) PLATELET MORPHOLOGY (test code = PLTMORPH) CBC W/AUTO [id number] 05:11:00 Test Item Value Reference Range Interpretation [...] SCAN NEEDED (test code = MDIFF) DIFFERENTIAL [id number] 05:11:00 Test Item Value Reference Range Interpretation Comments STAIN ACCEPTABILITY (test code = STN ACCEPTABLE) CABOT RINGS (test code = CAB) MORPHOLOGY COMMENT (test code = MOC) PLATELET ESTIMATE (test code = PLTEST) PLATELET MORPHOLOGY (test code = PLTMORPH) CBC W/AUTO [id number] 05:11:00 Test Item Value Reference Range Interpretation [...] SCAN NEEDED (test code = MDIFF) DIFFERENTIAL [id number] 05:11:00 Test Item Value Reference Range Interpretation Comments STAIN ACCEPTABILITY (test code = STN ACCEPTABLE) CABOT RINGS (test code = CAB) MORPHOLOGY COMMENT (test code = MOC) PLATELET ESTIMATE (test code = PLTEST) PLATELET MORPHOLOGY (test code = PLTMORPH) [id number] 20:37:00 Test Item Value Reference Range Interpretation Comments GLUBED (test code = 297 mg/dL 74-106 H Performe d by certified GLUBED) control board operator at [facility] URINALYSIS [id number] 17:21:00 Test Item Value Reference Range Interpretation [...] (test code = AMORU) Urine Source? Clean [id number] 16:41:00 Test Item Value Reference Range Interpretation Comments GLUBED (test code = 234 mg/dL 74-106 H Performe d by certified GLUBED) control board operator at [facility] COMPREHENSIVE METABOLIC [id number] 12:38:00 Test Item Value Reference Range Interpretation [...] >3 months. [Automated mess age] The system Nextt generated this result transmitted ref erence range: [...] range due ALKP) to change in reagent. [id number] 11:38:00 Test Item Value Reference Range Interpretation Comments GLUBED (test code = 237 mg/dL 74-106 H Performe d by certified GLUBED) control board operator at [facility] LIPID PROFILE (CORONARY RISK)2020-08-30 09:41:00 [...] is a direct measurement.=== ====== THYROID STIMULATING [id number] 09:41:00 Test Item Value Reference Range Interpretation Comments THYROID STIMULATING 2.255 uIU/mL 0.36-3.74 N TSH REFE RENCE HORMONE (test code = RANGES: EUTHYROID: TSH) 0.35 - 4.3 mIU/mL HYPO : > 5.5 mIU/mL HYPER : < 0.35 mIU/mL CBC W/AUTO [id number] 09:11:00 Test Item Value Reference Range Interpretation [...] SCAN NEEDED (test code = MDIFF) DIFFERENTIAL [id number] 09:11:00 Test Item Value Reference Range Interpretation Comments STAIN ACCEPTABILITY (test STAIN ACCEPTABLE code = STN ACCEPTABLE) POLYCHROMASIA (test code = 1+ POLC) HYPOCHROMIA (test code = 1+ HYPO) ANISOCYTOSIS (test code = 1+ ANISO) MICROCYTOSIS (test code = 1+ MICR) PLATELET ESTIMATE (test code ADEQUATE = PLTEST) PLATELET MORPHOLOGY (test NORMAL code = PLTMORPH) [id number] 08:40:00 Test Item Value Reference Range Interpretation Comments GLYCOSYLATED HEMOGLOBIN 11.0 % HbA1 WILLA MTAOS (HA1C) (test code = DIAGNOSI S: HbA1C GLYHGB) (%) ---- ------ Diab etic >6.4Prediabetes 5.7 - 6.4Normal <5.7 ESTIMATED AVERAGE 269 MG/DL GLUCOSE (test code = EAG) CBC W/AUTO [id number] 08:23:00 Test Item Value Reference Range Interpretation [...] SCAN NEEDED (test code = MDIFF) DIFFERENTIAL [id number] 08:23:00 Test Item Value Reference Range Interpretation Comments STAIN ACCEPTABILITY (test code = STN ACCEPTABLE) CABOT RINGS (test code = CAB) MORPHOLOGY COMMENT (test code = MOC) PLATELET ESTIMATE (test code = PLTEST) PLATELET MORPHOLOGY (test code = PLTMORPH) CBC W/AUTO [id number] 08:23:00 Test Item Value Reference Range Interpretation [...] SCAN NEEDED (test code = MDIFF) DIFFERENTIAL [id number] 08:23:00 Test Item Value Reference Range Interpretation Comments STAIN ACCEPTABILITY (test code = STN ACCEPTABLE) MORPHOLOGY COMMENT (test code = MOC) PLATELET ESTIMATE (test code = PLTEST) PLATELET MORPHOLOGY (test code = PLTMORPH) CBC W/AUTO [id number] 08:22:00 Test Item Value Reference Range Interpretation [...] SCAN NEEDED (test code = MDIFF) DIFFERENTIAL [id number] 08:22:00 Test Item Value Reference Range Interpretation Comments STAIN ACCEPTABILITY (test code = STN ACCEPTABLE) CABOT RINGS (test code = CAB) MORPHOLOGY COMMENT (test code = MOC) PLATELET ESTIMATE (test code = PLTEST) PLATELET MORPHOLOGY (test code = PLTMORPH) CBC W/AUTO [id number] 08:22:00 Test Item Value Reference Range Interpretation [...] SCAN NEEDED (test code = MDIFF) DIFFERENTIAL [id number] 08:22:00 Test Item Value Reference Range Interpretation Comments STAIN ACCEPTABILITY (test code = STN ACCEPTABLE) CABOT RINGS (test code = CAB) MORPHOLOGY COMMENT (test code = MOC) PLATELET ESTIMATE (test code = PLTEST) PLATELET MORPHOLOGY (test code = PLTMORPH) - CT ABD PELVIS [id number] 20:38:00 [facility])Name: RAN GUERRERO : 1975 Sex: M Name: RAN GUERRERO [facility] : Age/S: 44 / M [address] [facility] Unit #: [id number] Loc: [place] [address] Phys: Ban Arnold [employer] Acct: [id number] Dis Date: Status: REG ER PHONE #: [phone] Exam Date: 08/29/20202022 FAX #: [phone] 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, isidor EXAMS: CPT CODE: [id number] CT ABD PELVIS W/CONT [id number] EXAM: CT of the abdomen and pelvis [...] Report- XR CHEST 1 V 2020-08-29 20:14:00 [facility])Name: RAN GUERRERO : 1975 Sex: M FAX: Ban Arnold NP [place]: B St: REG Name: RAN GUERRERO [facility] : 1975 Age/S: 44/M [address] [facility] Unit #: [id number] Loc: [place] [address] Phys: Ban Arnold NP Acct: [id number] Dis Date: Status: REG ER PHONE #: [phone] Exam Date: 08/29/20201918 FAX #: [phone] Reason: CODE SEPSIS EXAMS: CPT CODE: [id number] XR CHEST 1 V 63129 EXAM: Chest X- ray, 1 view; CLINICAL [...] (2017) PAGE 1 Signed ReportCOVID 19 INHOUSE [id number] 20:02:00 Test Item Value Reference Range Interpretation Comments COVID 19 INHOUSE AG (test code = NEGATIVE NEGATIVE [id number]) BASIC METABOLIC [id number] 19:53:00 Test Item Value Reference Range Interpretation [...] >3 months. [Automated mess age] The system ic [employer] generated this result transmitted ref erence range: >=60. Th e reference range was not used to int erpret this result as normal/abnormal . CREATININE (test 1.00 mg/dL 0.7-1.3 N code = CREAT) BUN/CREATININE RATIO 11.6 10-20 N (test code = BUN/CREA) CALCIUM (test code = 8.5 mg/dL 8.5-10.1 N CA) HEPATIC FUNCTION [id number] 19:53:00 Test Item Value Reference Range Interpretation [...] range due ALKP) to change in reagent. [id number] 19:53:00 Test Item Value Reference Range Interpretation Comments TROPONIN-I (test code = TROPI) < 0.006 ng/mL 0-0.045 N B-TYPE NATRIURETIC [id number] 19:52:00 Test Item Value Reference Range Interpretation Comments B-TYPE NATRIURETIC PEPTIDE 20.0 pgram/mL 0-100 N (test code = BNP) LACTIC [id number] 19:33:00 Test Item Value Reference Range Interpretation Comments LACTIC ACID (test code = LACT) 1.3 mmol/L 0.4-1.9 N CBC W/AUTO [id number] 19:15:00 Test Item Value Reference Range Interpretation [...] code = 0.00 K/mm3 0.0-0.1 N NRBC#) [place] [id number] 07:04:53 Test Item Value Reference Range Interpretation Comments [place] Level (test code = 0.52 mmol/L 0.60-1.20 L [place] Level) [place] [id number] 06:31:16 Test Item Value Reference Range Interpretation Comments [place] Level (test code = 0.39 mmol/L 0.60-1.20 L [place] Level) RPR [id number] 03:58:40 Test Item Value Reference Range Interpretation [...] = 08/26/2019 N Expiration Dt) Thyroid Stimulating [id number] 02:50:00 Test Item Value Reference Range Interpretation Comments TSH (test code = TSH) 1.590 mIU/mL 0.270-4.200 Lipid [id number] 02:33:22 Test Item Value Reference Range Interpretation Comments Cholesterol Total 197 mg/dL 0-200 RISK OF HE ART (test code = DISEASEPublishe d by Cholesterol Total) [employer] Lashawn lyte Optimal Borderl ine [...] LDL/HDL Ratio=L DL Calc/HDL Chol Comprehensive Metabolic [id number] 18:09:30 Test Item Value Reference Range Interpretation [...] A/G 1.6 ratio N Ratio) Comprehensive Metabolic [id number] 18:09:30 Test Item Value Reference Range Interpretation [...] National Kidney Foundation, http://nkdep.ni h.gov Comprehensive Metabolic [id number] 18:09:30 Test Item Value Reference Range Interpretation [...] Foundation, http://nkdep.ni h.gov Complete Blood Count with [id number] 17:49:02 Test Item Value Reference Range Interpretation [...] code = IPF) 0 % N Automated [id number] 17:49:02 Test Item Value Reference Range Interpretation Comments Neutro Auto (test code = Neutro 60.9 % 36.0-70.0 Auto) Lymph Auto (test code = Lymph Auto) 28.2 % 12.0-44.0 Dougherty Auto (test code = Dougherty Auto) 8.0 % 0.0-11.0 Eos, Auto (test code = Eos, Auto) 1.7 % 0.0-7.0 Basophil Auto (test code = Basophil 0.7 % 0.0-2.0 Auto) Neutro Absolute (test code = Neutro 8.0 x10 1.6-7.4 H Absolute) Lymph Absolute (test code = Lymph 3.71 x10 .50-4.60 Absolute) Dougherty Absolute (test code = Dougherty 1.06 x10 .00-1.20 Absolute) Eos Absolute (test code = Eos 0.23 x10 0.00-0.74 Absolute) Baso Absolute (test code = Baso 0.09 x10 0.00-0.21 Absolute) IG [id number] 17:49:02 Test Item Value Reference Range Interpretation Comments IG (test code = IG) 0.5 % 0.0-5.0 IG Abs (test code = IG Abs) 0 x10 N Comprehensive Metabolic [id number] 13:30:37 Test Item Value Reference Range Interpretation [...] ratio N = A/G Ratio) Comprehensive Metabolic [id number] 13:30:37 Test Item Value Reference Range Interpretation [...] the National Kidney Foundation, http://nkdep.ni h.gov Alcohol [id number] 13:30:37 Test Item Value Reference Range Interpretation Comments Ethanol Level (test <0.00 g/dL 0.00-0.01 Intoxica annita 0.080 g/dL code = Ethanol or more Level) Ethanol Inst (test <0 N code = Ethanol Inst) Comprehensive Metabolic [id number] 13:30:37 Test Item Value Reference Range Interpretation [...] ag e have not been validated by [facility] MDRD study and should be interpreted [...] ag e have not been validated by [facility] MDRD study and should be interpreted wit h caution. eGFR R esult Interpretation: eGFR > or = 60 is in the Normal RangeeGF R < 60 may mean kid wong diseaseeGFR < 1 5 may mean kidney failure Rang es recommended by the National Kidney Foundation, http://nkdep.ni h.gov Drugs of Abuse Urine [id number] 13:26:52 Test Item Value Reference Range Interpretation [...] Cannabinoid Screen Ur) Complete Blood Count with [id number] 13:17:47 Test Item Value Reference Range Interpretation [...] code = IPF) 0 % N Automated [id number] 13:17:47 Test Item Value Reference Range Interpretation Comments Neutro Auto (test code = Neutro 67.8 % 36.0-70.0 Auto) Lymph Auto (test code = Lymph Auto) 22.2 % 12.0-44.0 Dougherty Auto (test code = Dougherty Auto) 7.3 % 0.0-11.0 Eos, Auto (test code = Eos, Auto) 1.4 % 0.0-7.0 Basophil Auto (test code = Basophil 0.7 % 0.0-2.0 Auto) Neutro Absolute (test code = Neutro 10.6 x10 1.6-7.4 H Absolute) Lymph Absolute (test code = Lymph 3.48 x10 .50-4.60 Absolute) Dougherty Absolute (test code = Dougherty 1.14 x10 .00-1.20 Absolute) Eos Absolute (test code = Eos 0.22 x10 0.00-0.74 Absolute) Baso Absolute (test code = Baso 0.11 x10 0.00-0.21 Absolute) IG [id number] 13:17:47 Test Item Value Reference Range Interpretation Comments IG (test code = IG) 0.6 % 0.0-5.0 IG Abs (test code = IG Abs) 0 x10 N
[2021-06-14 12:48] LABS: Protime INR 1.23
[2021-06-14 13:03] LABS: ALT/SGPT 11 U/L (12-78); AST/SGOT 9 U/L (15-37); Albumin 2.2 g/dL (3.4-5.0); Alkaline Phosphatase 89 U/L (45-117); BUN Blood Urea Nitrogen 7 mg/dL (7-18); Bicarbonate 28 mmol/L (21-32); Bilirubin Direct 0.1 mg/dL (0-0.2); Bilirubin Total 0.3 mg/dL (0.2-1.0); Glucose Level 149 mg/dL (74-106); Magnesium 1.9 mg/dL (1.8-2.4); NT PRO-BNP 360 pg/mL (<125); Protein, Total 7.9 g/dL (6.4-8.2); Sodium Level 139 mmol/L (136-145)
[2021-06-14 13:06] LABS: Absolute Lymphocytes (CBC) 2.3 K/uL (0.7-4.9); Hematocrit 30.3 % (39.6-49.0); MPV 6.5 fL (7.6-11.3)
[2021-06-14 13:29] LABS: Anisocytosis 2+; Blood Morphology Comment NOTED (NOT SEEN); Platelet Estimate ADEQ; Polychromasia SLIGHT
[2021-06-14] MEDS ORDERED: KCL 20 MEQ/100 mL IVPB 100 ML IV ONE (13:29)
[2021-06-14 13:37] LABS: Urine Blood Negative (Negative); Urine Glucose Negative (Negative); Urine Protein Negative (Negative); Urine pH 6.5 (5.0-7.0)
--- NOTE | 2021-06-14 13:40 | RAD REPORT ---
EXAM DESCRIPTION: CT - Head Brain Wo Cont - 06/14/2021 1:31 pm CLINICAL HISTORY: SYNCOPE, history of malignancy not otherwise specified, patient indicates difficul t or inability to walk for the last 2 weeks COMPARISON: No comparisons TECHNIQUE: Axial 5 mm thick images of the head were obtained without IV contrast. All CT scans are performed using dose optimization technique as appropriate and may include automated exposure control or mA/KV adjustment according to patient size. FINDINGS: No intracranial hemorrhage, mass, edema or shift of mid-line structures. No acute cortical based infarction. No cortical edema or sulcal effacement. No abnormal extra-axial fluid collections. Ventricles are normal. No significant atrophy or chronic ischemic changes identifiable. Paranasal sinuses are clear. No globe or orbital content abnormality. Physiologic calcifications are present. Left side mastoid air cells are less pneumatized on the right. There may be small amount of fluid in the left side mastoid air cells. Each middle ear is normally aerated. No acute bony findings. IMPRESSION: No acute intracranial finding identifiable. Continued, unexplained neurologic symptoms c an be further addressed with follow-up MRI imaging. Questionable small amount of fluid in the left side mastoid air cells.
--- NOTE | 2021-06-14 13:50 | RAD REPORT ---
EXAM DESCRIPTION: RAD - Chest Single View - 06/14/2021 1:39 pm CLINICAL HISTORY: syncope, shortness of breath COMPARISON: May 11 TECHNIQUE: AP portable chest image was obtained 06/14/2021 1:39 pm . FINDINGS: No focal mass or consolidation. Interstitial pattern is prominent, similar to slightly les s pronounced than seen previously. Prominent overlying soft tissues and under penetrated portable warren hnique accentuate findings over each lower lung field. Heart and vasculature are normal. No measurable pleural effusion and no pneumothorax. No acute bony abnormality seen. No acute aortic findings suspected. IMPRESSION: No acute cardiopulmonary process. No significant change from comparison study.
[2021-06-14 13:54] LABS: Urine Bacteria NONE SEEN /HPF (NONE SEEN); Urine Mucus 1+ /HPF (NONE SEEN); Urine RBC <5 /HPF (NONE SEEN)
[2021-06-14] MEDS ORDERED: FENTANYL CITR 100 MCG/2 ML ONE (14:05)
[2021-06-14] MEDS ORDERED: NA CHLORIDE 0.9% 500 ML ONE (14:05)
[2021-06-14 16:31] LABS: Hematocrit 30.7 % (39.6-49.0)
--- NOTE | 2021-06-14 17:28 | EDPHYS ---
Physician Documentation [facility] Name: Yassine Guerrero Jr Age: 45 yrs Sex: Male : 1975 Arrival Date: 06/14/2021 Time: 12:07 Bed 30 Private MD: ED Physician Cullen Ornelas HPI: 06/14 12:30 This 45 yrs old Male presents to ER via EMS with complaints of Syncope. cp 12:30 The patient has experienced syncope, lost consciousness. cp 12:30 Onset: The symptoms/episode began/occurred this morning. Duration: This was a single cp episode, that lasted 2 hour(s). 12:30 Context: the episode(s) was witnessed, by no one, occurred at home, occurred while the cp patient was getting up to up restroom. Just prior to the episode the patient experienced weakness. Associated injury: The patient did not suffer any apparent associated injury. Associated signs and symptoms: The patient has no apparent associated signs or symptoms. Current symptoms: pain to left groin, weakness. Historical: - Allergies: 12:19 No Known Allergies; ab2 - Home Meds: 12:19 gabapentin Oral [Active]; Glipizide Oral [Active]; Metformin Oral [Active]; ab2 - PMHx: 12:19 Rheumatoid Arthritis; PTSD; HPV; CPVC; Bipolar disorder; ab2 - PSHx: 12:19 Lymphnode removal; ab2 - Immunization history:: Adult Immunizations unknown, Client reports having NOT received the Covid vaccine. Flu vaccine is not up to date. - Social history:: Smoking status: unknown. ROS: 12:35 Constitutional: Negative for body aches, chills, fever, poor PO intake. cp 12:35 Eyes: Negative for injury, pain, redness, and discharge. cp 12:35 Neck: Negative for pain with movement, pain at rest, stiffness. 12:35 Cardiovascular: Negative for chest pain, palpitations. 12:35 Respiratory: Negative for cough, shortness of breath, wheezing. 12:35 Abdomen/GI: Negative for abdominal pain, nausea, vomiting, and diarrhea. 12:35 Back: Negative for pain at rest, pain with movement. 12:35 Skin: Positive for of the left groin, chronic wound. 12:35 Neuro: Positive for dizziness, syncope, weakness, Negative for altered mental status, headache, numbness. Exam: 12:12 ECG was reviewed by the Attending Physician. cp 12:40 Constitutional: The patient appears in no acute distress, alert, awake, non-toxic, well cp developed, well nourished, obese. 12:40 Head/Face: Normocephalic, atraumatic. cp 12:40 Eyes: Periorbital structures: appear normal, Pupils: equal, round, and reactive to light and accomodation, Extraocular movements: intact throughout, Conjunctiva: normal, no exudate, no injection, Sclera: no appreciated abnormality, Lids and lashes: appear normal, bilaterally. 12:40 ENT: External ear(s): are unremarkable, Nose: is normal, Mouth: Lips: moist, Oral mucosa: moist, Posterior pharynx: Airway: no evidence of obstruction, patent. 12:40 Neck: C-spine: vertebral tenderness, is not appreciated, crepitus, is not appreciated, ROM/movement: is normal, is supple, without pain, no range of motions limitations. 12:40 Chest/axilla: Inspection: normal, Palpation: crepitus, is not appreciated, tenderness, that is mild, of the right breast. 12:40 Cardiovascular: Rate: normal, Rhythm: regular, Edema: is not appreciated, JVD: is not appreciated. 12:40 Respiratory: the patient does not display signs of respiratory distress, Respirations: normal, no use of accessory muscles, no retractions, labored breathing, is not present, Breath sounds: are clear throughout, no decreased breath sounds, no stridor, no wheezing. 12:40 Abdomen/GI: Inspection: abdomen appears normal, Palpation: abdomen is soft and non-tender, in all quadrants. 12:40 Back: pain, is absent, ROM is normal. 12:40 Skin: large chronic wound to left groin appear w/o erythema, old packing in place, no active bleeding noted. 12:40 Neuro: Orientation: to person, place \T\ time. Mentation: is normal, Motor: moves all fours, strength is normal, Sensation: is normal. Vital Signs: 12:13 BP 107 / 65; Pulse 97; Resp 18; Temp 98.1(O); Pulse Ox 98% on R/A; Weight 113.4 kg; ab2 Height 5 ft. 8 in. (172.72 cm); Pain 7/10; 13:14 BP 127 / 69; Pulse 110; Resp 16; Pulse Ox 99% on R/A; ab2 14:30 BP 135 / 67; Pulse 81; Resp 16; Pulse Ox 98% on R/A; ab2 15:12 BP 131 / 69; Pulse 90; Resp 16; Pulse Ox 98% on R/A; ab2 16:57 BP 122 / 73; Pulse 87; Resp 16; Pulse Ox 99% on R/A; ab2 18:03 BP 117 / 67; Pulse 86; Resp 16; Pulse Ox 98% on R/A; ab2 12:13 Body Mass Index 38.01 (113.40 kg, 172.72 cm) ab2 MDM: 12:24 Patient medically screened. cp 16:50 Physician consultation: Lito Chao MD was called at 16:50, was contacted at 16:50, cp regarding consult, patient's condition, wants patient discharged to home to f/u outpatient with DR Monaco. 17:28 Data reviewed: vital signs, nurses notes, lab test result(s), EKG, radiologic studies, cp CT scan, plain films. 17:28 Test interpretation: by ED physician or midlevel provider: ECG, plain radiologic cp studies. Counseling: I had a detailed discussion with the patient and/or guardian regarding: the historical points, exam findings, and any diagnostic results supporting the discharge/admit diagnosis, lab results, radiology results, the need for outpatient follow up, a general surgeon, to return to the emergency department if symptoms worsen or persist or if there are any questions or concerns that arise at home. Response to treatment: the patient's symptoms have markedly improved after treatment, and as a result, I will discharge patient. 06/14 12:24 Order name: Basic Metabolic Panel; Complete Time: 13:12 cp 06/14 15:09 Interpretation: Normal except: K 3.0; GLUC 149; CA 11.9. cp 06/14 12:24 Order name: CBC with Diff; Complete Time: 13:52 cp 06/14 13:13 Interpretation: Normal except: WBC 15.40; RBC 3.90; HGB 9.6; HCT 30.3; MCV 77.5; MCH cp 24.5; MCHC 31.6; PLT 457; RDW 26.8; MPV 6.5; REYNALDO% 78.5; LYM% 15.0; NEUT A 12.1. 06/14 12:24 Order name: LFT's; Complete Time: 13:12 cp 06/14 13:16 Interpretation: Normal except: AST 9; ALT 11; ALB 2.2; GLOB 5.7; A/G 0.4. cp 06/14 12:24 Order name: Magnesium; Complete Time: 13:12 cp 06/14 12:24 Order name: NT PRO-BNP; Complete Time: 13:12 cp 06/14 12:24 Order name: PT-INR; Complete Time: 13:12 cp 06/14 16:51 Interpretation: PT 14.2; Reviewed. cp 06/14 12:24 Order name: Troponin HS; Complete Time: 13:12 cp 06/14 13:16 Interpretation: Reviewed. cp 06/14 12:24 Order name: XRAY Chest (1 view); Complete Time: 13:52 cp 06/14 13:19 Order name: Urine Microscopic Only; Complete Time: 14:12 cp 06/14 13:29 Order name: Manual Differential; Complete Time: 13:52 EDMS 06/14 13:36 Order name: Urine Dipstick-Ancillary; Complete Time: 13:52 EDMS 06/14 16:01 Order name: Hematocrit; Complete Time: 16:49 cp 06/14 16:01 Order name: Hemoglobin; Complete Time: 16:49 cp 06/14 16:01 Order name: CK; Complete Time: 16:49 cp 06/14 12:24 Order name: EKG; Complete Time: 12:25 cp 06/14 12:24 Order name: Cardiac monitoring; Complete Time: 12:25 cp 06/14 12:24 Order name: EKG - Nurse/Tech; Complete Time: 12:25 cp 06/14 12:24 Order name: IV Saline Lock; Complete Time: 12:25 cp 06/14 12:24 Order name: Labs collected and sent; Complete Time: 12:33 cp 06/14 12:24 Order name: O2 Per Protocol; Complete Time: 12:26 cp 06/14 12:24 Order name: O2 Sat Monitoring; Complete Time: 12:26 cp 06/14 12:51 Order name: Labs - recollect needed: recollect cbc; Complete Time: 12:53 bd 06/14 13:17 Order name: CT Head Brain wo Cont; Complete Time: 13:52 cp 06/14 13:19 Order name: Wound Care: left groin wound; Complete Time: 13:55 cp 06/14 13:55 Order name: [facility] EDNH 06/14 13:19 Order name: Urine Dipstick-Ancillary (obtain specimen); Complete Time: 13:55 cp EC:12 Rate is 100 beats/min. Rhythm is regular. FL interval is normal. QRS interval is cp normal. QT interval is normal. T waves are Inverted in lead aVR. Interpreted by me. Reviewed by me. Administered Medications: 13:54 Drug: Potassium Chloride 20 mEq Route: IV; Rate: calculated rate; Site: right ab2 antecubital; 16:57 Follow up: Response: No adverse reaction ab2 14:09 Drug: NS 0.9% 500 ml Route: IV; Rate: calculated rate; Site: right antecubital; ab2 16:57 Follow up: Response: No adverse reaction; IV Status: Completed infusion ab2 14:09 Drug: fentaNYL (PF) 50 mcg Route: IVP; Site: right antecubital; ab2 16:57 Follow up: Response: No adverse reaction ab2 18:02 Drug: Potassium Effervescent Tablet 50 mEq Route: PO; ab2 18:03 Follow up: Response: No adverse reaction ab2 18:02 Drug: Dilaudid (HYDROmorphone) 1 mg Route: IVP; Site: right antecubital; ab2 18:03 Follow up: Response: No adverse reaction ab2 Disposition Summary: 06/14/21 17:28 Discharge Ordered Location: Home cp Problem: new cp Symptoms: have improved cp Condition: Stable cp Diagnosis - Open wound of thigh - left, chronic cp - Anemia in other chronic diseases classified elsewhere cp - Weakness cp - Syncope cp Followup: cp - With: Jonathan Monaco MD - When: as scheduled - Reason: wound check Discharge Instructions: - Discharge Summary Sheet cp - Anemia cp - Syncope cp - Weakness cp - Wound Care, Adult cp Forms: - Medication Reconciliation Form cp - Thank You Letter cp - Antibiotic Education cp - Prescription Opioid Use cp Prescriptions: - Ferrous Sulfate 325 mg (65 mg Iron) Oral Tablet - take 1 tablet by ORAL route every 8 hours; 60 tablet; Refills: 0, Product cp Selection Permitted Addendum: 06/16/2021 00:03 Co-signature as Attending Physician, Cullen Ornelas MD I agree with the assessment and k dr plan of care. Signatures: Dispatcher [employer] EDMS Colleen Pineda Kevin, MD MD kdr Beto Overton PA PA cp Catherine, Brennan leger2 Corrections: (The following items were deleted from the chart) 06/14 15:09 13:12 Normal except: K 3.0; GLUC 149. cp cp 06/15 13:56 06/14 12:30 Current symptoms: pain to left groin, cp cp
--- NOTE | 2021-06-14 17:28 | ER ---
Nurse's Notes [facility] Name: Yassine Guerrero Jr Age: 45 yrs Sex: Male : 1975 Arrival Date: 06/14/2021 Time: 12:07 Bed 30 Private MD: Diagnosis: Open wound of thigh-left, chronic;Anemia in other chronic diseases classified elsewhere;Weakness;Syncope Presentation: 06/14 12:13 Chief complaint: Patient states: "I got up to go to the bathroom and got dizzy and ab2 fell. I was out for about 2 hours." Pt denies hitting his head. Pt states he hasn't been able to walk in 2 weeks due to his cancer. Coronavirus screen: Vaccine status: Patient reports being unvaccinated. Client denies travel out of the [place] in the last 14 days. At this time, the client does not indicate any symptoms associated with coronavirus-19. Ebola Screen: Patient negative for fever greater than or equal to 101.5 degrees Fahrenheit, and additional compatible Ebola Virus Disease symptoms Patient denies exposure to infectious person. Patient denies travel to an Ebola-affected area in the 21 days before illness onset. No symptoms or risks identified at this time. Initial Sepsis Screen: Does the patient meet any 2 criteria? No. Patient's initial sepsis screen is negative. Does the patient have a suspected source of infection? No. Patient's initial sepsis screen is negative. Risk Assessment: Do you want to hurt yourself or someone else? Patient reports no desire to harm self or others. Onset of symptoms is unknown. 12:13 Method Of Arrival: EMS: [facility] ab2 12:13 Acuity: IRINEO 3 ab2 Triage Assessment: 12:23 General: Appears in no apparent distress. unkempt, Behavior is calm, cooperative, ab2 appropriate for age. Neuro: No deficits noted. Historical: - Allergies: 12:19 No Known Allergies; ab2 - Home Meds: 12:19 gabapentin Oral [Active]; Glipizide Oral [Active]; Metformin Oral [Active]; ab2 - PMHx: 12:19 Rheumatoid Arthritis; PTSD; HPV; CPVC; Bipolar disorder; ab2 - PSHx: 12:19 Lymphnode removal; ab2 - Immunization history:: Adult Immunizations unknown, Client reports having NOT received the Covid vaccine. Flu vaccine is not up to date. - Social history:: Smoking status: unknown. Screenin:22 Abuse screen: Denies threats or abuse. Denies injuries from another. Nutritional ab2 screening: No deficits noted. Tuberculosis screening: No symptoms or risk factors identified. Fall Risk Fall in past 12 months (25 points). Secondary diagnosis (15 points) IV access (20 points). Ambulatory Aid- None/Bed Rest/Nurse Assist (0 pts). Gait- Impaired (20 pts.). Mental Status- Oriented to own ability (0 pts). Total Renteria Fall Scale indicates High Risk Score (45 or more points). Fall prevention measures have been instituted. Side Rails Up X 2 Frequent Obs/Assessments Occuring As available patient and family educated on Fall Prevention Program and Strategies. Assessment: 12:20 Pain: Complains of pain in right leg and left leg Pain currently is 7 out of 10 on a ab2 pain scale. Neuro: Level of Consciousness is awake, alert, obeys commands, Oriented to person, place, time, situation, Appropriate for age Sound Effects Manager are equal bilaterally Speech is normal, Reports a syncopal episode. Cardiovascular: No deficits noted. Reports syncope, Denies chest pain, shortness of breath, Heart tones S1 S2 Patient's skin is warm and dry. Rhythm is regular. Respiratory: No deficits noted. Airway is patent Respiratory effort is even, unlabored, Respiratory pattern is regular, symmetrical. GI: No deficits noted. No signs and/or symptoms were reported involving the gastrointestinal system. Abdomen is round non-distended, Bowel sounds present X 4 quads. : No deficits noted. No signs and/or symptoms were reported regarding the genitourinary system. EENT: No deficits noted. No signs and/or symptoms were reported regarding the EENT system. Derm: No deficits noted. No signs and/or symptoms reported regarding the dermatologic system. Musculoskeletal: Reports weakness in right leg and left leg numbness in right leg and left leg pain in right leg and left leg. 15:13 Reassessment: Patient appears in no apparent distress at this time. Wound care came and ab2 cleansed and redressed his wound. Vital Signs: 12:13 BP 107 / 65; Pulse 97; Resp 18; Temp 98.1(O); Pulse Ox 98% on R/A; Weight 113.4 kg; ab2 Height 5 ft. 8 in. (172.72 cm); Pain 7/10; 13:14 BP 127 / 69; Pulse 110; Resp 16; Pulse Ox 99% on R/A; ab2 14:30 BP 135 / 67; Pulse 81; Resp 16; Pulse Ox 98% on R/A; ab2 15:12 BP 131 / 69; Pulse 90; Resp 16; Pulse Ox 98% on R/A; ab2 16:57 BP 122 / 73; Pulse 87; Resp 16; Pulse Ox 99% on R/A; ab2 18:03 BP 117 / 67; Pulse 86; Resp 16; Pulse Ox 98% on R/A; ab2 12:13 Body Mass Index 38.01 (113.40 kg, 172.72 cm) ab2 ED Course: 12:07 Patient arrived in ED. ds1 12:12 Brennan Alexander is Primary Nurse. ab2 12:13 Beto Overton PA is PHCP. cp 12:13 Cullen Ornelas MD is Attending Physician. cp 12:13 EKG done, by ED staff. tp1 12:18 Triage completed. ab2 12:23 No provider procedures requiring assistance completed. Maintain EMS IV. Dressing ab2 intact. Good blood return noted. Site clean \\T\\ dry. Gauge \\T\\ site: 20 R AC. 12:23 Arm band placed on right wrist. ab2 12:23 Patient has correct armband on for positive identification. Side rails up X2. ab2 12:34 Basic Metabolic Panel Sent. ab2 12:34 CBC with Diff Sent. ab2 12:34 LFT's Sent. ab2 12:34 Magnesium Sent. ab2 12:34 Troponin HS Sent. ab2 12:34 PT-INR Sent. ab2 12:34 NT PRO-BNP Sent. ab2 13:31 CT Head Brain wo Cont In Process Unspecified. EDMS 13:39 XRAY Chest (1 view) In Process Unspecified. EDMS 17:25 Jonathan Monaco MD is Referral Physician. cp 18:09 IV discontinued, intact, bleeding controlled, No redness/swelling at site. Pressure ab2 dressing applied. Administered Medications: 13:54 Drug: Potassium Chloride 20 mEq Route: IV; Rate: calculated rate; Site: right ab2 antecubital; 16:57 Follow up: Response: No adverse reaction ab2 14:09 Drug: NS 0.9% 500 ml Route: IV; Rate: calculated rate; Site: right antecubital; ab2 16:57 Follow up: Response: No adverse reaction; IV Status: Completed infusion ab2 14:09 Drug: fentaNYL (PF) 50 mcg Route: IVP; Site: right antecubital; ab2 16:57 Follow up: Response: No adverse reaction ab2 18:02 Drug: Potassium Effervescent Tablet 50 mEq Route: PO; ab2 18:03 Follow up: Response: No adverse reaction ab2 18:02 Drug: Dilaudid (HYDROmorphone) 1 mg Route: IVP; Site: right antecubital; ab2 18:03 Follow up: Response: No adverse reaction ab2 Outcome: 17:28 Discharge ordered by . go 18:09 Discharged to home via wheelchair. ab2 18:09 Condition: good 18:09 Discharge instructions given to patient, Instructed on discharge instructions, follow up and referral plans. Demonstrated understanding of instructions, follow-up care, medications, Prescriptions given X 1. 18:09 Patient left the ED. ab2 Signatures: Dispatcher [employer] [facility] Miladys Caballero ds1 Beto Overton PA PA cp Parker, Tiffany tp1 Brennan Alexander ab2
[2021-06-14] MEDS ORDERED: HYDROMORPHONE HCL 2 MG/ML inj ONE (17:52)
[2021-06-14] MEDS ORDERED: POTASSIUM 25 MEQ EFFERV TAB ONE (17:52)
[2021-06-14 19:27] VITALS: TEMP 98.1
[2021-06-14 19:33] VITALS: BP 117/67; O2SAT 98
--- NOTE | 2021-06-15 13:08 | EKG ---
Test Date: 2021-06-14 Test Time: 12:05:22 Civil Drafting Technician: MEASUREMENT RESULTS: Intervals: Rate: 100 MI: 166 QRSD: 86 QT: 348 QTc: 448 [place]: P: 76 MI: 166 QRS: 69 T: 60 INTERPRETIVE STATEMENTS: Normal sinus rhythm Possible Left atrial enlargement Borderline ECG Compared to ECG 05/10/2021 14:01:12 Sinus tachycardia no longer present Right-axis deviation no longer present Electronically Signed On 06-15-21 13:03:17 [employer]X RESEARCH ASSOCIATE by Jose Rea
== END 2021-06-14 18:09 | disposition home or self-care (01) ==
LOC: ER 12:07
DX: R55 Syncope and collapse (principal); R53.1 Weakness; S71.102A Unspecified open wound, left thigh, initial encounter; D64.9 Anemia, unspecified; F31.9 Bipolar disorder, unspecified; F43.10 Post-traumatic stress disorder, unspecified
CPT/HCPCS: 96361; 93005; 85025; 80048; 36415; 83735; 82550; 85610; 80076; 85018; 85014; 84484; 83880; 70450; 71045; 99251; 96375; 96374; 99284; J3480; J1170; J3010; J7040; 81003; 81015

== ENCOUNTER 2021-07-09 07:49 | Emergency (ER) | payer OTHER ==
--- OUTSIDE RECORDS SUMMARY | 2021-07-09 07:54 | XMS REPORT | Clinical Summary ---
:1975 Author Organization [facility] MD [facility] Address [address] [place] [address] Care Team Providers Name Role Phone Unavailable [...] responds and then relapses into respiratory depression. nystatin Apply topically 30 g 0 Acti [...] CONTIN) 60 mg 12 by mouth twice 1 22 (Stop Taking at hr tablet daily. [...] diabetes mellitus type 2, Obstructive sleep apnea ergocalciferol Take 1 capsule 8 capsule 0 06/22/19 (DRISDOL) 50,000 (50,000 Units) 2 22 units [...] Added automatically from request for katherin dahl [id number] Gastritis 04/26/2021 Vitamin D deficiency 04/26/2021 Single [...] Nutrition Dx) 04/25/2021 Prep for Surgery Gastroenterology Oseas, Ximena iron , Hepatology & MD Tuyet deficiency [...] Obstructive sle ep apnea 04/23/2021 Travel after 07/09/2020 Surgical History Surgery Date Site/Laterality Comments LYMPH NODE BIOPSY DC ESOPHAGOGASTRODUODENOSCOPY 04/26/2021 Esophagus/N/A Pr ocedure: DIAGNOSTIC TRANSORAL DIAGNOSTIC UPPER GASTR OINTESTINAL ENDOSCOPY; Surg cierra: Maria E Valdez MD; Location: [facility] ENDOSCOPY; Serv ice: GASTROENTEROLOGY DC COLONOSCOPY FLX DX W/COLLJ SPEC 04/26/2021 N/A Procedure: DIAGNOSTIC WHEN PFRMD FLEXIBLE COLONOS COPY PROXIMAL TO SPLE RADHA FLEXURE; Surgeo n: Maria E Valdez MD; Location: [facility] ENDOSCOPY; Serv ice: GASTROENTEROLOGY Medical History [...] Comments Blood Pressure 135/77 04/29/2021 3:39 PM GEOCHEMICAL MANAGER Pulse 82 04/29/2021 3:39 PM GEOCHEMICAL MANAGER Temperature 36.8 C (98.2 F) 04/29/2021 3:39 PM GEOCHEMICAL MANAGER Respiratory Rate 18 04/29/2021 3:39 PM GEOCHEMICAL MANAGER Oxygen Saturation 95% 04/29/2021 3:39 PM GEOCHEMICAL MANAGER Inhaled Oxygen Concentration - - Weight 131.1 kg (289 lb 0.4 oz) 04/29/2021 5:52 AM GEOCHEMICAL MANAGER Height 173 cm (5' 8.11") 04/23/2021 6:02 PM GEOCHEMICAL MANAGER Body Mass Index 43.8 04/23/2021 6:02 PM GEOCHEMICAL MANAGER Plan of Treatment Date Type Specialty Care Team Description 04/03/2022 Telemedicine Gastroenterology, Maria E Valdez Hepatology & SMD [facility] [address] [place], [place] [address] (Wo rk) 05/02/2022 Clinical Support Covid 05/03/2022 Hospital Encounter Endoscopy Maria E Valdez MD [address] [place], [place] [address] (Wo rk) 05/03/2022 Surgery Endoscopy Maria E Valdez DIAGNOSCHAVEZ Gonzales MD FLEXIBLE [address] COLONOSCOPY [place], [place] [address] 0 PROXIMAL TO [phone] (Wo rk) SPLENIC FLEXURE Name Priority Associated Diagnoses Date/Time DIAGNOSTIC FLEXIBLE Personal history of 05/03/19 23 8:20 AM GEOCHEMICAL MANAGER COLONOSCOPY PROXIMAL TO colonic polyp SPLENIC FLEXURE Health Maintenance Due Date Last Done Comments COVID-19 Vaccination (1) 1981 Procedures Procedure Name Priority Date/Time Associated Comments Diagnosis CALCIUM LEVEL TOTAL AM 04/29/2021 6:48 Resu lts for this AM GEOCHEMICAL MANAGER procedure are i n the results section. .GLOMERULAR FILTRATION AM 04/29/2021 6:48 R esults for this RATE AM GEOCHEMICAL MANAGER procedure are i n the results section. SERUM CREATININE AM 04/29/2021 6:48 Results for this AM GEOCHEMICAL MANAGER procedure are i n the results section. ELECTROLYTE PANEL AM 04/29/2021 6:48 Result s for this AM GEOCHEMICAL MANAGER procedure are i n the results section. BLOOD UREA NITROGEN AM 04/29/2021 6:48 Resu lts for this AM GEOCHEMICAL MANAGER procedure are i n the results section. GLUCOSE LEVEL AM 04/29/2021 6:48 Results fo r this AM GEOCHEMICAL MANAGER procedure are i n the results section. MANUAL DIFFERENTIAL AM 04/29/2021 6:48 Resu lts for this AM GEOCHEMICAL MANAGER procedure are i n the results section. Results CBC AM 04/29/2021 6:48 Results for this AM GEOCHEMICAL MANAGER procedure are i n the results section. PHOSPHORUS LEVEL AM 04/29/2021 6:48 Results for this AM GEOCHEMICAL MANAGER procedure are i n the results section. MAGNESIUM LEVEL AM 04/29/2021 6:48 Results for this AM GEOCHEMICAL MANAGER procedure are i n the results section. BASIC METABOLIC PANEL, AM 04/29/2021 6:48 CALCIUM TOTAL AM GEOCHEMICAL MANAGER COMPLETE BLOOD COUNT W/ AM 04/29/2021 6:48 DIFFERENTIAL AM GEOCHEMICAL MANAGER MANUAL DIFFERENTIAL AM 04/28/2021 2:36 Resu lts for this AM GEOCHEMICAL MANAGER procedure are i n the results section. Results CBC AM 04/28/2021 2:36 Results for this AM GEOCHEMICAL MANAGER procedure are i n the results section. COMPLETE BLOOD COUNT W/ AM 04/28/2021 2:36 DIFFERENTIAL AM GEOCHEMICAL MANAGER CALCIUM LEVEL TOTAL AM 04/28/2021 2:30 Resu lts for this AM GEOCHEMICAL MANAGER procedure are i n the results section. .GLOMERULAR FILTRATION AM 04/28/2021 2:30 R esults for this RATE AM GEOCHEMICAL MANAGER procedure are i n the results section. SERUM CREATININE AM 04/28/2021 2:30 Results for this AM GEOCHEMICAL MANAGER procedure are i n the results section. ELECTROLYTE PANEL AM 04/28/2021 2:30 Result s for this AM GEOCHEMICAL MANAGER procedure are i n the results section. BLOOD UREA NITROGEN AM 04/28/2021 2:30 Resu lts for this AM GEOCHEMICAL MANAGER procedure are i n the results section. GLUCOSE LEVEL AM 04/28/2021 2:30 Results fo r this AM GEOCHEMICAL MANAGER procedure are i n the results section. PHOSPHORUS LEVEL AM 04/28/2021 2:30 Results for this AM GEOCHEMICAL MANAGER procedure are i n the results section. MAGNESIUM LEVEL AM 04/28/2021 2:30 Results for this AM GEOCHEMICAL MANAGER procedure are i n the results section. BASIC METABOLIC PANEL, AM 04/28/2021 2:30 CALCIUM TOTAL AM GEOCHEMICAL MANAGER US LEG VENOUS DOPPLER Routine 04/27/2021 8:47 Re sults for this BILATERAL AM GEOCHEMICAL MANAGER procedure are i n the results section. CALCIUM LEVEL TOTAL AM 04/27/2021 5:25 Resu lts for this AM GEOCHEMICAL MANAGER procedure are i n the results section. .GLOMERULAR FILTRATION AM 04/27/2021 5:25 R esults for this RATE AM GEOCHEMICAL MANAGER procedure are i n the results section. SERUM CREATININE AM 04/27/2021 5:25 Results for this AM GEOCHEMICAL MANAGER procedure are i n the results section. ELECTROLYTE PANEL AM 04/27/2021 5:25 Result s for this AM GEOCHEMICAL MANAGER procedure are i n the results section. BLOOD UREA NITROGEN AM 04/27/2021 5:25 Resu lts for this AM GEOCHEMICAL MANAGER procedure are i n the results section. GLUCOSE LEVEL AM 04/27/2021 5:25 Results fo r this AM GEOCHEMICAL MANAGER procedure are i n the results section. MANUAL DIFFERENTIAL AM 04/27/2021 5:25 Resu lts for this AM GEOCHEMICAL MANAGER procedure are i n the results section. Results CBC AM 04/27/2021 5:25 Results for this AM GEOCHEMICAL MANAGER procedure are i n the results section. PHOSPHORUS LEVEL AM 04/27/2021 5:25 Results for this AM GEOCHEMICAL MANAGER procedure are i n the results section. MAGNESIUM LEVEL AM 04/27/2021 5:25 Results for this AM GEOCHEMICAL MANAGER procedure are i n the results section. BASIC METABOLIC PANEL, AM 04/27/2021 5:25 CALCIUM TOTAL AM GEOCHEMICAL MANAGER COMPLETE BLOOD COUNT W/ AM 04/27/2021 5:25 DIFFERENTIAL AM GEOCHEMICAL MANAGER MRI PELVIS W WO CONTRAST Routine 04/26/2021 7:50 Results for this PM GEOCHEMICAL MANAGER procedure are i n the results section. POC GLUCOSE SCREEN Routine 04/26/2021 3:20 Resul ts for this PM GEOCHEMICAL MANAGER procedure are i n the results section. POC GLUCOSE SCREEN Routine 04/26/2021 11:36 Resul ts for this AM GEOCHEMICAL MANAGER procedure are i n the results section. PATHOLOGY BIOPSY Routine 04/26/2021 11:30 Anemia due to Result s for this INTERPRETATION AM GEOCHEMICAL MANAGER chronic blood loss procedu re are in the results section. DIAGNOSTIC FLEXIBLE 04/26/2021 10:36 Anemia due to COLONOSCOPY PROXIMAL TO AM GEOCHEMICAL MANAGER chronic blood los s SPLENIC FLEXURE DIAGNOSTIC UPPER 04/26/2021 10:36 Anemia due to GASTROINTESTINAL AM GEOCHEMICAL MANAGER chronic blood loss ENDOSCOPY POC GLUCOSE SCREEN Routine 04/26/2021 10:36 Resul ts for this AM GEOCHEMICAL MANAGER procedure are i n the results section. POC GLUCOSE SCREEN Routine 04/26/2021 8:14 Resul ts for this AM GEOCHEMICAL MANAGER procedure are i n the results section. THYROID STIMULATING AM 04/26/2021 3:20 Resu lts for this HORMONE AM GEOCHEMICAL MANAGER procedure are i n the results section. CALCIUM LEVEL TOTAL AM 04/26/2021 3:20 Resu lts for this AM GEOCHEMICAL MANAGER procedure are i n the results section. .GLOMERULAR FILTRATION AM 04/26/2021 3:20 R esults for this RATE AM GEOCHEMICAL MANAGER procedure are i n the results section. SERUM CREATININE AM 04/26/2021 3:20 Results for this AM GEOCHEMICAL MANAGER procedure are i n the results section. ELECTROLYTE PANEL AM 04/26/2021 3:20 Result s for this AM GEOCHEMICAL MANAGER procedure are i n the results section. BLOOD UREA NITROGEN AM 04/26/2021 3:20 Resu lts for this AM GEOCHEMICAL MANAGER procedure are i n the results section. GLUCOSE LEVEL AM 04/26/2021 3:20 Results fo r this AM GEOCHEMICAL MANAGER procedure are i n the results section. MANUAL DIFFERENTIAL AM 04/26/2021 3:20 Resu lts for this AM GEOCHEMICAL MANAGER procedure are i n the results section. Results CBC AM 04/26/2021 3:20 Results for this AM GEOCHEMICAL MANAGER procedure are i n the results section. PHOSPHORUS LEVEL AM 04/26/2021 3:20 Results for this AM GEOCHEMICAL MANAGER procedure are i n the results section. MAGNESIUM LEVEL AM 04/26/2021 3:20 Results for this AM GEOCHEMICAL MANAGER procedure are i n the results section. BASIC METABOLIC PANEL, AM 04/26/2021 3:20 CALCIUM TOTAL AM GEOCHEMICAL MANAGER COMPLETE BLOOD COUNT W/ AM 04/26/2021 3:20 DIFFERENTIAL AM GEOCHEMICAL MANAGER POC GLUCOSE SCREEN Routine 04/25/2021 11:03 Resul ts for this PM GEOCHEMICAL MANAGER procedure are i n the results section. POC GLUCOSE SCREEN Routine 04/25/2021 5:32 Resul ts for this PM GEOCHEMICAL MANAGER procedure are i n the results section. POC GLUCOSE SCREEN Routine 04/25/2021 2:59 Resul ts for this PM GEOCHEMICAL MANAGER procedure are i n the results section. CT CHEST PULMONARY Routine 04/25/2021 11:38 Resul ts for this EMBOLISM W CONTRAST AM GEOCHEMICAL MANAGER procedur e are in the results section. POC GLUCOSE SCREEN Routine 04/25/2021 10:19 Resul ts for this AM GEOCHEMICAL MANAGER procedure are i n the results section. CALCIUM LEVEL TOTAL AM 04/25/2021 3:19 Resu lts for this AM GEOCHEMICAL MANAGER procedure are i n the results section. .GLOMERULAR FILTRATION AM 04/25/2021 3:19 R esults for this RATE AM GEOCHEMICAL MANAGER procedure are i n the results section. SERUM CREATININE AM 04/25/2021 3:19 Results for this AM GEOCHEMICAL MANAGER procedure are i n the results section. ELECTROLYTE PANEL AM 04/25/2021 3:19 Result s for this AM GEOCHEMICAL MANAGER procedure are i n the results section. BLOOD UREA NITROGEN AM 04/25/2021 3:19 Resu lts for this AM GEOCHEMICAL MANAGER procedure are i n the results section. GLUCOSE LEVEL AM 04/25/2021 3:19 Results fo r this AM GEOCHEMICAL MANAGER procedure are i n the results section. MANUAL DIFFERENTIAL AM 04/25/2021 3:19 Resu lts for this AM GEOCHEMICAL MANAGER procedure are i n the results section. Results CBC AM 04/25/2021 3:19 Results for this AM GEOCHEMICAL MANAGER procedure are i n the results section. PHOSPHORUS LEVEL AM 04/25/2021 3:19 Results for this AM GEOCHEMICAL MANAGER procedure are i n the results section. MAGNESIUM LEVEL AM 04/25/2021 3:19 Results for this AM GEOCHEMICAL MANAGER procedure are i n the results section. BASIC METABOLIC PANEL, AM 04/25/2021 3:19 CALCIUM TOTAL AM GEOCHEMICAL MANAGER COMPLETE BLOOD COUNT W/ AM 04/25/2021 3:19 DIFFERENTIAL AM GEOCHEMICAL MANAGER POC GLUCOSE SCREEN Routine 04/24/2021 11:28 Resul ts for this PM GEOCHEMICAL MANAGER procedure are i n the results section. TRANSFUSE RED BLOOD Routine 04/24/2021 10:19 CELLS PM GEOCHEMICAL MANAGER POC GLUCOSE SCREEN Routine 04/24/2021 8:32 Resul ts for this PM GEOCHEMICAL MANAGER procedure are i n the results section. TRANSFUSE RED BLOOD Routine 04/24/2021 3:22 CELLS PM GEOCHEMICAL MANAGER TMP HCVAB INTERP Routine 04/24/2021 12:40 Results for this PM GEOCHEMICAL MANAGER procedure are i n the results section. TMP HIV 1/2 AG&AB PATH Routine 04/24/2021 12:40 R esults for this INTERP PM GEOCHEMICAL MANAGER procedure are i n the results section. HEPATITIS C VIRUS Routine 04/24/2021 12:40 Result s for this ANTIBODY PM GEOCHEMICAL MANAGER procedure are i n the results section. HIV-1/2 ANTIGEN AND Routine 04/24/2021 12:40 Resu lts for this ANTIBODIES, FOURTH PM GEOCHEMICAL MANAGER procedure are in GENERATION the results section. VITAMIN D 25 HYDROXY Routine 04/24/2021 12:40 Res ults for this LEVEL PM GEOCHEMICAL MANAGER procedure are i n the results section. PTH INTACT Routine 04/24/2021 12:40 Results for this PM GEOCHEMICAL MANAGER procedure are i n the results section. CALCIUM IONIZED, VENOUS Routine 04/24/2021 12:40 Results for this PM GEOCHEMICAL MANAGER procedure are i n the results section. POC GLUCOSE SCREEN Routine 04/24/2021 12:19 Resul ts for this PM GEOCHEMICAL MANAGER procedure are i n the results section. PRBC PRODUCT READY FOR Routine 04/24/2021 11:[address] SUPERVISOR AM GEOCHEMICAL MANAGER procedure are i n the results section. PREPARE RBC Routine 04/24/2021 11:11 Results for this AM GEOCHEMICAL MANAGER procedure are i n the results section. POC GLUCOSE SCREEN Routine 04/24/2021 8:55 Resul ts for this AM GEOCHEMICAL MANAGER procedure are i n the results section. CT ABDOMEN PELVIS W WO Routine 04/24/2021 8:29 R esults for this CONTRAST AM GEOCHEMICAL MANAGER procedure are i n the results section. CALCIUM LEVEL TOTAL AM 04/24/2021 2:40 Resu lts for this AM GEOCHEMICAL MANAGER procedure are i n the results section. .GLOMERULAR FILTRATION AM 04/24/2021 2:40 R esults for this RATE AM GEOCHEMICAL MANAGER procedure are i n the results section. SERUM CREATININE AM 04/24/2021 2:40 Results for this AM GEOCHEMICAL MANAGER procedure are i n the results section. ELECTROLYTE PANEL AM 04/24/2021 2:40 Result s for this AM GEOCHEMICAL MANAGER procedure are i n the results section. BLOOD UREA NITROGEN AM 04/24/2021 2:40 Resu lts for this AM GEOCHEMICAL MANAGER procedure are i n the results section. GLUCOSE LEVEL AM 04/24/2021 2:40 Results fo r this AM GEOCHEMICAL MANAGER procedure are i n the results section. MANUAL DIFFERENTIAL AM 04/24/2021 2:40 Resu lts for this AM GEOCHEMICAL MANAGER procedure are i n the results section. Results CBC AM 04/24/2021 2:40 Results for this AM GEOCHEMICAL MANAGER procedure are i n the results section. PHOSPHORUS LEVEL AM 04/24/2021 2:40 Results for this AM GEOCHEMICAL MANAGER procedure are i n the results section. MAGNESIUM LEVEL AM 04/24/2021 2:40 Results for this AM GEOCHEMICAL MANAGER procedure are i n the results section. BASIC METABOLIC PANEL, AM 04/24/2021 2:40 CALCIUM TOTAL AM GEOCHEMICAL MANAGER COMPLETE BLOOD COUNT W/ AM 04/24/2021 2:40 DIFFERENTIAL AM GEOCHEMICAL MANAGER URINE CULTURE Now 04/23/2021 10:38 Results fo r this PM GEOCHEMICAL MANAGER procedure are i n the results section. POC GLUCOSE SCREEN Routine 04/23/2021 10:19 Resul ts for this PM GEOCHEMICAL MANAGER procedure are i n the results section. WOUND CULTURE W/ GRAM Now 04/23/2021 10:01 Re sults for this STAIN PM GEOCHEMICAL MANAGER procedure are i n the results section. XR CHEST 1 VW Routine 04/23/2021 8:40 Results fo r this PM GEOCHEMICAL MANAGER procedure are i n the results section. XR HIP 2 OR 3 VW W Routine 04/23/2021 8:39 Resul ts for this PELVIS LEFT PM GEOCHEMICAL MANAGER procedure are i n the results section. TMP CROSSMATCH Now 04/23/2021 8:15 Results f or this INTERPRETATION PM GEOCHEMICAL MANAGER procedure are in the results section. TMP INTERPRETATION Routine 04/23/2021 8:15 Resul ts for this ANTIBODY SCREEN NEGATIVE PM GEOCHEMICAL MANAGER pro cedure are in the results section. CLOT EXPIRATION DATE Routine 04/23/2021 8:15 Res ults for this PM GEOCHEMICAL MANAGER procedure are i n the results section. ANTIBODY SCREEN Now 04/23/2021 8:15 Results for this PM GEOCHEMICAL MANAGER procedure are i n the results section. ABORH Now 04/23/2021 8:15 Results for this PM GEOCHEMICAL MANAGER procedure are i n the results section. TYPE AND SCREEN Now 04/23/2021 8:15 PM GEOCHEMICAL MANAGER HEMOGLOBIN A1C Routine 04/23/2021 8:15 Results f or this PM GEOCHEMICAL MANAGER procedure are i n the results section. FERRITIN LVL Routine 04/23/2021 8:15 Results for this PM GEOCHEMICAL MANAGER procedure are i n the results section. TRANSFERRIN Routine 04/23/2021 8:15 Results for this PM GEOCHEMICAL MANAGER procedure are i n the results section. IRON LEVEL Routine 04/23/2021 8:15 Results for this PM GEOCHEMICAL MANAGER procedure are i n the results section. BLOODCULTURE Now 04/23/2021 8:15 Results for this PM GEOCHEMICAL MANAGER procedure are i n the results section. CONFIRM ABORH TYPE Now 04/23/2021 8:14 Resul ts for this PM GEOCHEMICAL MANAGER procedure are i n the results section. COVID-19 (SARS-COV-2) Now 04/23/2021 5:23 Re sults for this ASYMPTOMATIC-LT PM GEOCHEMICAL MANAGER procedure ar e in the results section. TMP HIV 1/2 AG&AB PATH Routine 04/23/2021 4:13 R esults for this INTERP PM GEOCHEMICAL MANAGER procedure are i n the results section. URINALYSIS MICROSCOPIC Routine 04/23/2021 4:13 R esults for this PM GEOCHEMICAL MANAGER procedure are i n the results section. HEPATITIS B SURFACE AG Routine 04/23/2021 4:13 R esults for this W/CONFIRM PM GEOCHEMICAL MANAGER procedure are i n the results section. HEPATITIS B CORE TOTAL Routine 04/23/2021 4:13 R esults for this ANTIBODY PM GEOCHEMICAL MANAGER procedure are i n the results section. FRACTIONATED BILIRUBIN Now 04/23/2021 4:13 R esults for this PM GEOCHEMICAL MANAGER procedure are i n the results section. TOTAL PROTEIN Now 04/23/2021 4:13 Results fo r this PM GEOCHEMICAL MANAGER procedure are i n the results section. ASPARTATE Now 04/23/2021 4:13 Results for this AMINOTRANSFERASE PM GEOCHEMICAL MANAGER procedure a re in the results section. ALANINE AMINOTRANSFERASE Now 04/23/2021 4:13 Results for this PM GEOCHEMICAL MANAGER procedure are i n the results section. ALKALINE PHOSPHATASE Now 04/23/2021 4:13 Res ults for this PM GEOCHEMICAL MANAGER procedure are i n the results section. ALBUMIN LEVEL Now 04/23/2021 4:13 Results fo r this PM GEOCHEMICAL MANAGER procedure are i n the results section. CALCIUM LEVEL TOTAL Now 04/23/2021 4:13 Resu lts for this PM GEOCHEMICAL MANAGER procedure are i n the results section. .GLOMERULAR FILTRATION Now 04/23/2021 4:13 R esults for this RATE PM GEOCHEMICAL MANAGER procedure are i n the results section. SERUM CREATININE Now 04/23/2021 4:13 Results for this PM GEOCHEMICAL MANAGER procedure are i n the results section. ELECTROLYTE PANEL Now 04/23/2021 4:13 Result s for this PM GEOCHEMICAL MANAGER procedure are i n the results section. BLOOD UREA NITROGEN Now 04/23/2021 4:13 Resu lts for this PM GEOCHEMICAL MANAGER procedure are i n the results section. GLUCOSE LEVEL Now 04/23/2021 4:13 Results fo r this PM GEOCHEMICAL MANAGER procedure are i n the results section. MANUAL DIFFERENTIAL STAT 04/23/2021 4:13 Resu lts for this PM GEOCHEMICAL MANAGER procedure are i n the results section. Results CBC STAT 04/23/2021 4:13 Results for this PM GEOCHEMICAL MANAGER procedure are i n the results section. URINALYSIS WITH Now 04/23/2021 4:13 Results for this MICROSCOPIC IF INDICATED PM GEOCHEMICAL MANAGER pro cedure are in the results section. APTT Now 04/23/2021 4:13 Results for this PM GEOCHEMICAL MANAGER procedure are i n the results section. PROTHROMBIN TIME Now 04/23/2021 4:13 Results for this PM GEOCHEMICAL MANAGER procedure are i n the results section. HEPATITIS B SURFACE Now 04/23/2021 4:13 Resu lts for this ANTIBODY, SERUM PM GEOCHEMICAL MANAGER procedure ar e in the results section. HEPATITIS B SURFACE Now 04/23/2021 4:13 Resu lts for this ANTIGEN, SERUM PM GEOCHEMICAL MANAGER procedure are in the results section. HEPATITIS C VIRUS Now 04/23/2021 4:13 Result s for this ANTIBODY PM GEOCHEMICAL MANAGER procedure are i n the results section. HEPATITIS B CORE Now 04/23/2021 4:13 Results for this ANTIBODY PM GEOCHEMICAL MANAGER procedure are i n the results section. HIV-1/2 ANTIGEN AND Now 04/23/2021 4:13 Resu lts for this ANTIBODIES, FOURTH PM GEOCHEMICAL MANAGER procedure are in GENERATION the results section. PHOSPHORUS LEVEL Now 04/23/2021 4:13 Results for this PM GEOCHEMICAL MANAGER procedure are i n the results section. MAGNESIUM LEVEL Now 04/23/2021 4:13 Results for this PM GEOCHEMICAL MANAGER procedure are i n the results section. COMPREHENSIVE METABOLIC Now 04/23/2021 4:13 PANEL PM GEOCHEMICAL MANAGER COMPLETE BLOOD COUNT W/ Now 04/23/2021 4:13 DIFFERENTIAL PM GEOCHEMICAL MANAGER PATHOLOGY OUTSIDE Routine 12/27/2020 Results fo r this INTERPRETATION procedure are in the results section. after 07/09/2020 Results .Serum Creatinine (04/29/2021 6:48 AM GEOCHEMICAL MANAGER)Only the most recent of7 results within the time period is included. Pathologist Sig nature Creatinine 0.86 0.67 - 1.17 mg/dL [facility] C ENTER Specimen Blood Performing Organization Address City/State/ZIP Code Phon e Number [facility] Unless otherwise noted, [place] [address] [facility] all lab tests performed by: Division of Pathology and Laboratory Medicine [address] (ABNORMAL) .CBC (04/29/2021 6:48 AM GEOCHEMICAL MANAGER)Only the most recent of7 resultswithin the time period is included. WBC 11.9 (H) 4.0 - 11.0 [facility] K/uL [facility] CENTER RBC 4.60 4.50 - 6.00 [facility] M/uL [facility] Hgb 9.1 (L) 14.0 - 18.0 [facility] gm/dL [facility] CENTER Hct 32.0 (L) 40.0 - 54.0 % [facility] MCV 70 (L) 82 - 98 fL [facility] MCH 19.8 (L) 27.0 - 31.0 pg [facility] MCHC 28.4 (L) 31.0 - 36.0 [facility] gm/dL [facility] RDW-SD 61.8 (H) 35.1 - 46.3 fL [facility] RDW-CV 27.2 (H) 12.0 - 15.5 % [facility] Platelet count 561 (H) 140 - 440 K/uL [facility] MPV 8.2 4.0 - 10.4 fL [facility] INRBC 0.0 <=0.0 % [facility] Comment: [facility] CENTER The INRBC (instrument NRBC) value reflects the enumera tion of nucleated red blood cells contained in a 200uL samp le of whole blood analyzed by the instrument. This value may differ from the NRBC value reported in a manual differ ential, which is based on a 100 cell differential. Specimen Blood Performing Organization Address City/State/ZIP Code Phon e Number [facility] Unless otherwise noted, [place] [address] [facility] all lab tests performed by: Division of Pathology and Laboratory Medicine [facility] [address] Glomerular Filtration Rate (04/29/2021 6:48 AM GEOCHEMICAL MANAGER)Only the most recent of7 resultswithin the time period is included. eGFR-AA 122 >=60 [facility] Comment: mL/min/1.73 [facility] Normal eGFR: >= 60 mL/min/1.73 m2 sq. [...] 5 Kidney failure <15 eGFR-ALISON 105 >=60 [facility] Comment: mL/min/1.73 [facility] Normal eGFR: >= 60 mL/min/1.73 m2 sq. m Note: The eGFR is calculated using the CKD-EPI equation. The eGFR declines with age. eGFR <60 mL/min/1.73 m2 is considered as "decreased". This equation should only be used for patients 18 and older. According to the [facility]'s Kidney Disease Outcome Quality [...] Organization Address City/State/ZIP Code Phon e Number [facility] Unless otherwise noted, [place] [address] [facility] all lab tests performed by: Division of Pathology and Laboratory Medicine [address] (ABNORMAL) Differential (04/29/2021 6:48 AM GEOCHEMICAL MANAGER)Only the most recent of7 resultswithin the time period is included. Neutrophil % 64.0 42.0 - 66.0 % [facility] CENTER Lymphocyte % 24.9 24.0 - 44.0 % [facility] Monocyte % 7.0 2.0 - 7.0 % [facility] Eosinophil % 2.6 1.0 - 4.0 % [facility] Basophil % 0.8 0.0 - 1.0 % [facility] IGRE % 0.7 (H)Comment: 0.0 - 0.4 % [facility] IGRE % count [facility] includes Metamyelocytes, Myelocytes, and Promyelocytes. Neutrophil Abs 7.60 (H) 1.70 - 7.[address] [facility] Lymphocyte Abs 2.96 1.00 - 4.[address] [facility] Monocyte Abs 0.83 (H) 0.08 - 0.[address] [facility] Eosinophil Abs 0.31 0.04 - 0.[address] [facility] Basophil Abs 0.10 0.00 - 0.[address] [facility] IG Abs 0.08 (H) 0.00 - 0.[address] [facility] Specimen Blood Performing Organization Address [facility] [place] Phon e Number [facility] Unless otherwise noted, [address] all lab tests performed by: Division of Pathology and Laboratory Medicine [address] [place] BUN (04/29/2021 6:48 AM GEOCHEMICAL MANAGER)Only the most recent of7 resultswithin the time period is included. Pathologist Sig nature BUN 12 6 - 23 mg/dL [facility] Specimen Blood Performing Organization Address [facility] [place] Phon e Number [facility] Unless otherwise noted, [address] all lab tests performed by: Division of Pathology and Laboratory Medicine [address] [place] Phosphorus Level (04/29/2021 6:48 AM GEOCHEMICAL MANAGER)Only the most recent of7 resultswithin the time period is included. Pathologist Sig nature Phosphorus 3.8 2.5 - 4.5 mg/dL [facility] TER Specimen Blood Performing Organization Address [facility] [place] Phon e Number [facility] Unless otherwise noted, [address] all lab tests performed by: Division of Pathology and Laboratory Medicine [address] [place] Magnesium Level (04/29/2021 6:48 AM GEOCHEMICAL MANAGER)Only the most recent of7 resultswithin the time period is included. Pathologist Sig nature Magnesium 1.9 1.6 - 2.6 mg/dL [facility] TER Specimen Blood Performing Organization Address [facility] [place] Phon e Number [facility] Unless otherwise noted, [address] all lab tests performed by: Division of Pathology and Laboratory Medicine [address] [place] (ABNORMAL) Glucose Level (04/29/2021 6:48 AM GEOCHEMICAL MANAGER)Only the most recent of7 resultswithin the time period is included. Glucose Level 119 (H) 70 - 99 mg/dL [facility] Comment: CANCER CENTER Effective 11/22/15, the gluco se reference intervals have been updated based on [place] [employer] guidelines (Standards of Medical Care in Diabetes 2016. Diabetes Care 2016; 39: S13-S22). Fasting blood glucose: Normal: 70-99 mg/dL Impaired fasting glucose (in creased risk for diabetes or pre-diabetes): 100- 125 mg/dL Diabetes mellitus: >/=126 mg/dL Random blood glucose: Normal: 70-199 mg/dL Note: Random glucose >100 mg/dL is assoc iated with increased risk for diabetes Specimen Blood Performing Organization Address [facility] [place] Phon e [facility] Unless otherwise noted, [address] all lab tests performed by: Division of Pathology and Laboratory Medicine [facility] Calcium Level (04/29/2021 6:48 AM GEOCHEMICAL MANAGER)Only the most recent of7 resultswithin the time period is included. Pathologist Sig nature Calcium Lvl 9.6 8.4 - 10.2 mg/dL [facility] NTER Specimen Blood Performing Organization Address [facility] [place] Phon e Number [facility] CANCER Unless otherwise noted, [address] all lab tests performed by: Division of Pathology and Laboratory Medicine [address] [place] [address] [place] Electrolyte Panel (04/29/2021 6:48 AM GEOCHEMICAL MANAGER)Only the most recent of7 results within the time period is included. Pathologist Sig nature Sodium Lvl 136 136 - 145 mEq/L [facility] Potassium Lvl 4.1 3.5 - 5.1 mEq/L [facility] Chloride 99 98 - 107 mEq/L [facility] CO2 25 22 - 29 mEq/L [facility] Anion Gap 12 4 - 14 mEq/L [facility] Specimen Blood Performing Organization Address City/[facility] [place] Phon e Number [facility] CANCER Unless otherwise noted, [address] all lab tests performed by: Division of Pathology and Laboratory Medicine [address] [facility] US Leg Venous Doppler Bilateral (04/27/2021 8:47 AM GEOCHEMICAL MANAGER) Specimen Impressions [id number] - 04/27/2021 9:12 AM GEOCHEMICAL MANAGER Negative for deep venous thrombosis in t he bilateral lower extremities. The left proximal femoral vein is obscured by overlying bandages and not visualized. Narrative [id number] - 04/27/2021 9:12 AM GEOCHEMICAL MANAGER FULL RESULT: Examination: US LEG VENOUS DOPPLER [...] FULL RESULT: Examination: US LEG VENOUS DOPPLER [facility], 04/27/2021 8:47 AM Clinical History: [...] Organization Address City/State/ZIP Code Phon e Number [id number] MRI Pelvis with and without Contrast (04/26/2021 7:50 PM GEOCHEMICAL MANAGER) Specimen Impressions [id number] - 04/26/2021 10:33 PM GEOCHEMICAL MANAGER Large subcutaneous tumor extending from the left flank to the proximal left thigh as described above. There is left inguinal adenopathy. Narrative [id number] - 04/26/2021 10:33 PM GEOCHEMICAL MANAGER FULL RESULT: Examination: MRI PELVIS W WO [...] Organization Address City/State/ZIP Code Phon e Number [id number] (ABNORMAL) POC Glucose Screen (04/26/2021 3:20 PM GEOCHEMICAL MANAGER)Only the most recent of13 resultswithin the time [...] Sample Type Capillary POC [facility] Clinical Lab, [address] [place] [id number]; Train Braker: Melissa Carpio MD Specimen Blood Performing Organization Address City/[facility]/ZIP Code Phon e Number POC TELCOR Pathology Biopsy Interpretation (04/26/2021 11:30 AM GEOCHEMICAL MANAGER) Pathologist Sig nature Submitted Clinical Anemia due to chronic [facility] History blood loss [D50.0] Diagnosis A. Colon, cecum polyp, biopsy: [facility] BS Electronically signed Tubular [...] colon polyp, biopsy: Lipoma Gross Description A: [facility] Colon, cecal polyp: 2 [...] in E1. ET Disclaimer "Some tests reported [facility] here may have been developed and performance characteristics determined by [facility] Pathology and Laboratory Medicine. These tests have not been specifically cleared or approved by the U.S. Food and Drug Administration. If applicable, controls were reviewed and showed appropriate reactivity." Specimen Tissue - Colon Tissue - Duodenum Tissue - Stomach Tissue - Stomach Tissue - Colon Performing Organization Address City/State/ZIP Code Phon e Number [facility] [place] [place] [address] [address] [place] TSH (04/26/2021 3:20 AM GEOCHEMICAL MANAGER) Pathologist Sig nature TSH 2.73 0.27 - 4.20 mcunit/mL [facility] CENTER Specimen Blood Performing Organization Address City/[facility] [place] Phon e Number [facility] CANCER Unless otherwise noted, [place] [address] CENTER all lab tests performed by: Division of Pathology and Laboratory Medicine [address] [place] [address] Chest Pulmonary Embolism with Contrast (04/25/2021 11:38 AM GEOCHEMICAL MANAGER) Specimen Impressions [id number] - 04/25/2021 11:51 AM GEOCHEMICAL MANAGER Subsegmental pulmonary emboli in the right lower lobe pulmonary artery are unchanged. There are no CT findings of right ventricular strain. Narrative [id number] - 04/25/2021 11:51 AM GEOCHEMICAL MANAGER FULL RESULT: Examination: CT CHEST PULMONARY EMBOLISM [...] Organization Address City/State/ZIP Code Phon e Number [id number] Transfuse RBC:Transfusion Date: 04/24/2021 (04/25/2021 12:29 AM GEOCHEMICAL MANAGER)Only the most recent of2 resultswithin the time period is included.TMP HIV 1/2 Ag&Ab Path Interp (04/24/2021 12:40 PM GEOCHEMICAL MANAGER)Only the most recent of2 resultswithin the time period is included. HIV 1/2 Ag&Ab Negative for HIV-1 antigen a nd HIV-1/HIV-2 antibodies. No laboratory evidence of HIV infection. If acute HIV infection is suspected, consider testing for HIV-1 RNA. [facility] Interp Comment: CENTER MD Gaby WILHELM Dictated by: MD Gaby WILHELM Dictated Date/Time: 04.24.20 21:42 PM GEOCHEMICAL MANAGER Transcribed Date/Time: 04.24.2021 21:42 PM GEOCHEMICAL MANAGER Electronically Signed By: MD Gaby WILHELM on 04.24.2021 21:42 PM Specimen Blood Performing Organization Address City/[facility] Code Phon e Number [facility] [address] [place] [address] HIV-1/2 Antigen and Antibodies, Fourth Generation (04/24/2021 12:40 PM GEOCHEMICAL MANAGER)Only the most recent of2 resultswithin the time period is included. HIV 1/2 Ag & Ab, Non Reactive Non Reactive [facility] 4th Gen Comment: CENTER Performed at: [facility] [address] [place] [id number] Specimen Blood Performing Organization Address City/[facility] [place] Phon e Number [facility] [address] [place] [address] TMP HCV Ab Path Interp (04/24/2021 12:40 PM GEOCHEMICAL MANAGER) HCV Ab Path There is NO serologic evidence of Hepatitis C vi naima antibody. [facility] Interp Comment: CENTER MD Gaby WILHELM Dictated by: MD Gaby WILHELM Dictated Date/Time: 04.24.20 21:41 PM GEOCHEMICAL MANAGER Transcribed Date/Time: 04.24.2021 21:41 PM GEOCHEMICAL MANAGER Electronically Signed By: MD Gaby WILHELM on 04.24.2021 21:41 PM Specimen Blood Performing Organization Address City/State/ZIP Code Phon e Number [facility] [place] [address] (ABNORMAL) PTH Intact (04/24/2021 12:40 PM GEOCHEMICAL MANAGER) Pathologist Rayo pickard PTH Intact 7.2 (L) 15.0 - 65.0 pg/mL [facility] Specimen Blood Performing Organization Address [facility] [place] Phon e Number [facility] CANCER Unless otherwise noted, [address] all lab tests performed by: Division of Pathology and Laboratory Medicine [address] [place] [address] [place] Hepatitis C Virus Ab (04/24/2021 12:40 PM GEOCHEMICAL MANAGER)Only the most recent of2 results within the time period is included. Pathologist Abhi HCVAb. Non Reactive Non Reactive [facility] Comment: CENTER Antibody detection in the im munocompromised and immunosuppressed population may be delayed or absent entirely. Therefore serial testing, correlation with other clinical findings, and supplemental testin g (if available) should be taken into consideration when interpreting the results. Performed at: [facility] [address] [place] [id number] Specimen Blood Performing Organization Address [facility] [place] Phon e Number [facility] [address] [place] [phone] (ABNORMAL) Calcium Ionized, Venous (04/24/2021 12:40 PM GEOCHEMICAL MANAGER) Pathologist Rayo pickard V Ion Ca 1.39 (H) 1.15 - 1.29 mmol/L [facility] Specimen Blood Performing Organization Address [facility] [place] Phon e Number [facility] CANCER Unless otherwise noted, [address] all lab tests performed by: Division of Pathology and Laboratory Medicine [address] [place] [address] [place] (ABNORMAL) Vitamin D 25OH (04/24/2021 12:40 PM GEOCHEMICAL MANAGER) Pathologist Abhi Vitamin D 25 OH 8 (L) 30 - 100 ng/mL [facility] Comment: CANCER CENTER Reference Range: Deficiency: <10 ng/mL Insufficiency: 10-29 ng/mL Sufficiency: 30-100 ng/mL Potential toxicity: >100 ng/mL Specimen Blood Performing Organization Address [facility] [place] Phon e Number [facility] CANCER Unless otherwise noted, [address] all lab tests performed by: Division of Pathology and Laboratory Medicine [address] [place] [address] RBC Product Ready for Jig Boring Machine Operator For Metal (04/24/2021 11:11 AM GEOCHEMICAL MANAGER) Pathologist [facility] PRBC Product Ready B2 Blood [facility] for Jig Boring Machine Operator For Metal BankComment: CANCER CENTER Product is ready for sweet pickled fruit maker on April 24, 2021 12:20:47 GEOCHEMICAL MANAGER. Specimen Blood Performing Organization Address City/State/ZIP Code Phon e Number [facility] CANCER Unless otherwise noted, [place] [address] [place] all lab tests performed by: Division of Pathology and Laboratory Medicine [address] [place] [address] Prepare RBC:[id number], 2 Units (04/24/2021 11:11 AM GEOCHEMICAL MANAGER) Pathologist [facility] PRBC Product Ready 2Comment: Red Blood [facility] Cells Available - [facility] Order Form 03 when ready for product issue. Unit Number [id number] [facility] Product Code [id number] [facility] Unit Expiration [facility] Unit Blood Type 0600 [facility] Product Code Text RBCIRLR CPD AS1 [facility] 500mL CAN[facility]ER CENTER Crossmatch [id number] [facility] Expiration Date CAN[facility] CENTER Unit Irradiated IRRADIATED [facility] Dispense Status ISSUED [facility] Unit Blood Type A Negative [facility] Product Jig Boring Machine Operator For Metal .BPAMComment: [facility] Location CANCER CENTER Unit Number [id number] [facility] Product Code [id number] [facility] CANCER CENTER Unit Expiration [id number] [facility] CANCER [place] Unit Blood Type 0600 [facility] Product Code Text RBCIRLR Aph ACDA AS1 [facility] Bag 2 CAN[facility]ER CENTER Crossmatch [id number] [facility] Expiration Date CAN[facility] CENTER Unit Irradiated IRRADIATED [facility] Dispense Status ISSUED [facility] Unit Blood Type A Negative [facility] Product Jig Boring Machine Operator For Metal .BPAMComment: [facility] Location CANCER CENTER Specimen Blood Performing Organization Address City/State/ZIP Code Phon e Number [facility] CANCER Unless otherwise noted, [place] [address] CENTER all lab tests performed by: Division of Pathology and Laboratory Medicine [address] [facility] [address] Abdomen Pelvis with and without Contrast (04/24/2021 8:29 AM GEOCHEMICAL MANAGER) Specimen Addenda Addendum by Derick Prasad MD on 04/24/2021 10:36 AM GEOCHEMICAL MANAGER Findings and recommendations discussed w jensen Shaw at 10:32am on 04/24/21. Impressions [id number] - 04/24/2021 10:26 AM GEOCHEMICAL MANAGER 1. Large enhancing and hypervascular lob ulated [...] embolism protocol CT if clinically warranted. Narrative [id number] - 04/24/2021 10:26 AM GEOCHEMICAL MANAGER FULL RESULT: Examination: CT ABDOMEN PELVIS W [...] iliac lymph nodes, that are nonspecifi c. Clinical Trial Head left external iliac ly mph node measures 0.9 cm in short axis is seen on series 5 image 165./Additional new accounts banking representative distal left external iliac lymph node [...] external iliac lymph nodes, that are nonspecific. Clinical Trial Head left external iliac lymph node measures 0.9 c m in short axis is seen on series 5 image 165./Additional new accounts banking representative distal left external iliac lymph node [...] CT if clinically warranted. Performing Organization Address City/[facility]/ZIP Code Phon e Number [id number] Urine Culture (04/23/2021 10:38 PM GEOCHEMICAL MANAGER) Final Report No growth [facility] Path Review - The results have been review ed and electronically signed by Pathologist: [facility] Urine SHEILA MEIER MD #[id number] [facility] Specimen Urine, Clean Catch Performing Organization Address [facility] [place] Phon e Number [facility] CANCER Unless otherwise noted, [place], [place] [id number] [place] [address] all lab tests performed by: Division of Pathology and Laboratory Medicine Ron5 [address]ony [address] (ABNORMAL) Wound Culture w/Gram Stain (04/23/2021 10:01 PM GEOCHEMICAL MANAGER) Final Report Many Coryneform Bacteria [facility] Susceptibility performed upon request. Plates wi ll be held for 5 days [facility] ... Few Presumptive Proteus mirabilis (A) Path Review The results have been review ed and electronically signed by Pathologist: [facility] ALEKSANDR MEIER MD #[id number] [facility] (A) Gram Stain Report Moderate WBC's seen [facility] No organisms seen. [facility] (A) Organism Proteus mirabilis (A) [facility] Specimen Lesion Narrative [facility] - 2 9:04 PM GEOCHEMICAL MANAGER Groin Organism Antibiotic Method Susceptibility Proteus mirabilis *CHARLES expressed in mcg/mL MINIMUM INHIBITORY CT C: [facility] Proteus mirabilis Ampicillin MINIMUM [...] Organization Address City/State/ZIP Code Phon e Number [facility] CANCER Unless otherwise noted, [place], [place] [id number] [place] [address] all lab tests performed by: Division of Pathology and Laboratory Medicine [facility]5 [facility] X-ray Chest 1 View (04/23/2021 8:40 PM GEOCHEMICAL MANAGER) Specimen Impressions [id number] - 04/23/2021 9:02 PM GEOCHEMICAL MANAGER Clear lungs. Narrative [id number] - 04/23/2021 9:02 PM GEOCHEMICAL MANAGER FULL RESULT: Examination: XR CHEST 1 VW, [...] Organization Address City/State/ZIP Code Phon e Number [id number] XR Hip 2 or 3 Views w Pelvis Left (04/23/2021 8:39 PM GEOCHEMICAL MANAGER) Specimen Impressions [id number] - 04/23/2021 8:53 PM GEOCHEMICAL MANAGER Soft tissue fullness in the area of the left groin. Narrative [id number] - 04/23/2021 8:53 PM GEOCHEMICAL MANAGER FULL RESULT: Examination: XR HIP 2 OR [...] of the left groin. Performing Organization Address City/[facility] [place] Phon e Number [id number] Clot Expiration Date (04/23/2021 8:15 PM GEOCHEMICAL MANAGER) Pathologist Sig nature T & S Expiration 04/26/2021 [facility] Specimen Blood Performing Organization Address [facility] Phon e Number [facility] Unless otherwise noted, [address] all lab tests performed by: Division of Pathology and Laboratory Medicine [address] [place] [address] TMP Interpretation Antibody Screen Negative (04/23/2021 8:15 PM GEOCHEMICAL MANAGER) TMP Auto Neg ABSC At the present time, patien t plasma shows no evidence of RBC alloantibodies. [facility] Interp Comment: CANCER CENTER MD Gaby WILHELM [id number] Dictated by: MD Gaby IWLHELM [id number] Dictated Date/Time: 04.24.20 5:42 AM GEOCHEMICAL MANAGER Transcribed Date/Time: 04.24.2021 5:42 AM GEOCHEMICAL MANAGER Electronically Signed By: CAMACHO HERNÁNDEZ MD - [phone] on 04.24.2021 5:42 AM C Specimen Blood Performing Organization Address [facility] Phon e Number [facility] Unless otherwise noted, [address] all lab tests performed by: Division of Pathology and Laboratory Medicine [facility]5 Donyhoang [place] TMP Interpretation Crossmatch (04/23/2021 8:15 PM GEOCHEMICAL MANAGER) TMP XM Interp RBC units crossmatched for transfusion appear ac ceptable. [facility] Comment: CANCER CENTER MD Gaby WILHELM [id number] Dictated by: MD Gaby WILHELM Dictated Date/Time: 04.24.20 15:19 PM GEOCHEMICAL MANAGER Transcribed Date/Time: 04.24.2021 15:19 PM GEOCHEMICAL MANAGER Electronically Signed By: MD Gaby WILHELM76 on 04.24.2021 15:19 PM Specimen Blood Performing Organization Address City/[facility] Phon e Number [facility] CANCER Unless otherwise noted, [address] all lab tests performed by: Division of Pathology and Laboratory Medicine [facility]5 [address] [place] ABORh (04/23/2021 8:15 PM GEOCHEMICAL MANAGER) Pathologist Sig melly ABORh. A POS [facility] Specimen Blood Performing Organization Address City/[facility] Phon e Number [facility] CANCER Unless otherwise noted, [address] all lab tests performed by: Division of Pathology and Laboratory Medicine [address] [place], [place] [address]d Blood Culture (04/23/2021 8:15 PM GEOCHEMICAL MANAGER) Pathologist Abhi Final Report No growth [facility] Path Review - Immunity and antibiotic use may render culture negative. Ongoing infection requires repeat culture. The results have been reviewed and electronically signed by Pathologist: [facility] Bottle/Isolator Tash Bui MD, PhD #[id number] CANCER C ENTER Specimen Blood Performing Organization Address City/[facility] Phon e Number [facility] CANCER Unless otherwise noted, [address] all lab tests performed by: Division of Pathology and Laboratory Medicine [address] [place], [place] [address] Antibody Screen (04/23/2021 8:15 PM GEOCHEMICAL MANAGER) Pathologist Rayo pickard ABSC. Negative ABSC [facility] CANCER CENTE R Specimen Blood Performing Organization Address City/[facility] Phon e Number [facility] CANCER Unless otherwise noted, [address] all lab tests performed by: Division of Pathology and Laboratory Medicine [address] Transferrin with TIBC (04/23/2021 8:15 PM GEOCHEMICAL MANAGER) Pathologist Sig nature Transferrin 225 200 - 360 mg/dL [facility] TER TIBC 315 250 - 450 mcg/dL [facility] CE NTER Specimen Blood Performing Organization Address [facility] Phon e Number [facility] Unless otherwise noted, [address] all lab tests performed by: Division of Pathology and Laboratory Medicine [address] (ABNORMAL) Iron Level (04/23/2021 8:15 PM GEOCHEMICAL MANAGER) Pathologist Sig nature Iron 14 (L) 59 - 158 mcg/dL [facility] TER Specimen Blood Performing Organization Address [facility] [place] Phon e Number [facility] Unless otherwise noted, [address] all lab tests performed by: Division of Pathology and Laboratory Medicine [address] (ABNORMAL) Hemoglobin A1c (04/23/2021 8:15 PM GEOCHEMICAL MANAGER) Pathologist Sig nature A1C 5.8 (H) 4.3 - 5.6 % [facility] Comment: CANCER CENTER HbA1c values >=6.5% are diagnostic of diabetes mellitu s. Diagnosis should be confirmed by repeat testing. Therapeutic Action suggested: >8.0% HbA1c; Goal of therapy: <7.0% HbA1c Specimen Blood Performing Organization Address [facility] [place] Phon e Number [facility] Unless otherwise noted, [address] all lab tests performed by: Division of Pathology and Laboratory Medicine [address] (ABNORMAL) Ferritin Level (04/23/2021 8:15 PM GEOCHEMICAL MANAGER) Pathologist Sig nature Ferritin Lvl 21 (L) 30 - 400 ng/mL [facility] ER Specimen Blood Performing Organization Address [facility] [place] Phon e Number [facility] CANCER Unless otherwise noted, [address] all lab tests performed by: Division of Pathology and Laboratory Medicine [address] Confirm ABORh (04/23/2021 8:14 PM GEOCHEMICAL MANAGER) Pathologist Sig nature ABORh Confirm. A POS [facility] ER Specimen Blood Performing Organization Address City/[facility]/ZIP [facility] Phon e Number [facility] Unless otherwise noted, [address] all lab tests performed by: Division of Pathology and Laboratory Medicine [address] COVID-19 (SARS-CoV-2)Asymptomatic-LT (04/23/2021 5:23 PM GEOCHEMICAL MANAGER) COVID19 Not Detected Not Detected [facility] (SARS-CoV-2) [facility] COVID19 SARS Inpatient Admission [facility] Indication [facility] Covid 19 Comment See Note [facility] Comment: CANCER CENTER The [place] [...] fact sheet for patients provided by the director post ([employer]) can be reviewed at: https://www.fda.gov/media/15 9669/download. A fact sheet for Health Care providers is provided by the director post ([employer]) and can be reviewed at: https://www.fda.gov/media/004079/download Results must be interpreted within the context [...] and high-complexity tests. The Microbiology Laboratory at [facility], CLIA Accreditation # [id number] and CAP Accreditation #[id number], verified the performance characteristics of this assay. Internal controls are used to monitor all stages of the test process. Specimen Nasopharyngeal Swab Performing Organization Address City/[facility] Phon e Number [facility] Unless otherwise noted, [address] all lab tests performed by: Division of Pathology and Laboratory Medicine [address] [place] [address] Hepatitis B Core Total Antibody (04/23/2021 4:13 PM GEOCHEMICAL MANAGER) Pathologist [facility] HBc Total Ab-[place] Negative Negative [facility] Comment: CANCER CENTER Test Performed by: [facility] [place] [address] Train Braker: Gael Westbrook M.D. Ph.D.; CLIA# [id number] Specimen Blood Performing Organization Address [facility] Phon e Number [facility] CANCER Unless otherwise noted, [address] all lab tests performed by: Division of Pathology and Laboratory Medicine [address] [place] [address] Fractionated Bilirubin (04/23/2021 4:13 PM GEOCHEMICAL MANAGER) Pathologist [facility] Bili Total 0.3 <=1.2 mg/dL [facility] Comment: CANCER CENTER Indocyanine Green (ICG) may cause falsely elevated bilirubin results. Total and direct bilirubin must not be measured from samples containing indocyanine green. False elevation of total matt irubin can be seen in patients with IgG concentrations above 28 g/L. Bili Direct <0.2Comment: <=0.3 mg/dL [facility] Indocyanine Green CANCER CENTER (ICG) may cause falsely elevated bilirubin results. Total and direct bilirubin must not be measured from samples containing indocyanine green. Bili Indirect See NoteComment: 0.0 - 0.9 [facility] Unable to calculate mg/dL CAN[facility]ER CENTER Indirect Bilirubin result due to some parameters are outside reportable range Specimen Blood Performing Organization Address [facility] Phon e Number [facility] CANCER Unless otherwise noted, [address] all lab tests performed by: Division of Pathology and Laboratory Medicine [address] [place] [address] Hepatitis B Surface Ag w/Confirm (04/23/2021 4:13 PM GEOCHEMICAL MANAGER) Pathologist [facility] Hep Bs Ag-[place] Negative Negative [facility] Comment: CANCER CENTER Test Performed by: [facility] [place] [address] Train Braker: Gael Westbrook M.D. Ph.D.; CLIA# [id number] Specimen Blood Performing Organization Address [facility] [place] [facility] Phon e Number [facility] CANCER Unless otherwise noted, [address] all lab tests performed by: Division of Pathology and Laboratory Medicine [address] [place] [address] [place] Hepatitis B Total Ig Core Ab (SCREENING) (anti-HBc total Ig; HBcAb total Ig) (04/23/2021 4:13 PM GEOCHEMICAL MANAGER) Pathologist Sig melly HBcAb Received See NoteComment: [facility] HBcAb was sent to a CANCER CENTER reference lab for testing. Expect results on Hepatitis B Core Total Ab within 96 hours. Specimen Blood Performing Organization Address City/[facility]/ZIP Code Phon e Number [facility] CANCER Unless otherwise noted, [address] all lab tests performed by: Division of Pathology and Laboratory Medicine [address] [place] [address] [place] (ABNORMAL) Urinalysis with Microscopic (04/23/2021 4:13 PM GEOCHEMICAL MANAGER) Pathologist Sig nature UA WBC 4 (H) 0 - 2 /HPF [facility] UA RBC 4 (H) 0 - 2 /HPF [facility] UA Mucous NOT SEEN Not Seen-Trace /HPF [facility] UA Bacteria NOT SEEN NOT SEEN /HPF [facility] UA Squam Epi OCC None-Occasional [facility] Specimen Urine Narrative [facility] - 1 5:08 PM GEOCHEMICAL MANAGER Some reporting parameters within the Urinalysis test have changed due to the implementation of new in strumentation in the Main [place], allowi ng greater sensitivity of measurement. Urinalysis results reported by the [facility] using existing instrumentation, as well as Urinalysis t esting performed manually or by backup methodology at the [facility] will remain relatively unchanged. New reporting parameters and units will now be reported for all campuses. Performing Organization Address City/State/ZIP Code Phon e Number [facility] CANCER Unless otherwise noted, [address] all lab tests performed by: Division of Pathology and Laboratory Medicine [address] [place] [address] [place] aPTT (04/23/2021 4:13 PM GEOCHEMICAL MANAGER) Pathologist Sig melly aPTT 33.8 24.7 - 36.8 second(s) [facility] Specimen Blood Performing Organization Address City/[facility]/ZIP [facility] [place] Phon e Number [facility] CANCER Unless otherwise noted, [address] all lab tests performed by: Division of Pathology and Laboratory Medicine [address] [place] [address] Hepatitis B Surface Antibody (04/23/2021 4:13 PM GEOCHEMICAL MANAGER) Hep Bs Ab-F[place] Positive [facility] Comment: [facility] Patient is considered to be immune to infection with H BV. REFERENCE VALUE ------ Unvaccinated: Negative Vaccinated: Positive Hep Bs Ab Qn-Fagan 42.1 mIU/mL [facility] Comment: [facility] REFERENCE VALUE ------ Unvaccinated: <5.0 Vaccinated: >=12.0 Test Performed by: [facility] [place] [address] Train Braker: Gael Westbrook M.D. Ph.D.; CLIA# [id number] Specimen Blood Performing Organization Address [facility] [place] [facility] Phon e Number [facility] CANCER Unless otherwise noted, [address] all lab tests performed by: Division of Pathology and Laboratory Medicine [address] [place] [address] Hepatitis B Surface Ag (04/23/2021 4:13 PM GEOCHEMICAL MANAGER) Pathologist [facility] nature HBsAg Received See NoteComment: [facility] HBsAg was sent to a [facility] reference lab for testing. Expect results on Hepatitis B Surface Antigen w/ Confirm within 96 hours. Specimen Blood Performing Organization Address [facility] Phon e Number [facility] CANCER Unless otherwise noted, [address] all lab tests performed by: Division of Pathology and Laboratory Medicine [address] [place] [address] (ABNORMAL) Urinalysis w/Microscopic if Indicated (04/23/2021 4:13 PM GEOCHEMICAL MANAGER) Pathologist Sig nature UA Color Yellow Straw-Yellow [facility] UA Appear Hazy (A) Clear [facility] UA Glucose NEG NEG mg/dL [facility] UA Bili NEG NEG [facility] UA Ketones NEG NEG mg/dL [facility] UA Spec Grav 1.015 1.003 - 1.035 [facility] UA Blood NEG NEG [facility] UA pH 5.0 5.0 - 9.0 [facility] UA Protein NEG NEG mg/dL [facility] UA Urobilinogen NEG NEG [facility] UA Nitrite NEG NEG [facility] UA Leuk Est NEG NEG [facility] Specimen Urine Performing Organization Address City/[facility]/ZIP Code Phon e Number [facility] Unless otherwise noted, [address] all lab tests performed by: Division of Pathology and Laboratory Medicine [address] [place] (ABNORMAL) Prothrombin Time with INR (04/23/2021 4:13 PM GEOCHEMICAL MANAGER) Pathologist Sig nature PT 15.8 (H)Comment: 11.5 - 13.9 [facility] Repeated and second(s) CANCER CENTER Verified INR 1.37 (H)Comment: 0.90 - 1.10 [facility] Repeated and CANCER CENTER Verified Specimen Blood Performing Organization Address City/[facility] [place] Phon e Number [facility] Unless otherwise noted, [address] all lab tests performed by: Division of Pathology and Laboratory Medicine [address] [place] ALT (04/23/2021 4:13 PM GEOCHEMICAL MANAGER) Pathologist Sig nature ALT 7 <=41 U/L [facility] Specimen Blood Performing Organization Address City/[facility] Phon e Number [facility] CANCER Unless otherwise noted, [address] all lab tests performed by: Division of Pathology and Laboratory Medicine [address] [place] Aspartate Aminotransferase (04/23/2021 4:13 PM GEOCHEMICAL MANAGER) Pathologist Sig nature AST 12 <=40 U/L [facility] Specimen Blood Performing Organization Address City/[facility]/ZIP [facility] [place] Phon e Number [facility] CANCER Unless otherwise noted, [address] all lab tests performed by: Division of Pathology and Laboratory Medicine [address] [place] Total Protein (04/23/2021 4:13 PM GEOCHEMICAL MANAGER) Pathologist Sig nature Total Protein 7.8 6.4 - 8.3 g/dL [facility] TER Specimen Blood Performing Organization Address City/[facility]/ZIP Code Phon e Number [facility] Unless otherwise noted, [address] all lab tests performed by: Division of Pathology and Laboratory Medicine [address] [place] [address] Alkaline Phosphatase (04/23/2021 4:13 PM GEOCHEMICAL MANAGER) Pathologist Sig [facility] Alk Phos 100 40 - 129 U/L [facility] Specimen Blood Performing Organization Address City/[facility]/ZIP Code Phon e Number [facility] CANCER Unless otherwise noted, [address] all lab tests performed by: Division of Pathology and Laboratory Medicine [address] [place] [address] (ABNORMAL) Albumin Level (04/23/2021 4:13 PM GEOCHEMICAL MANAGER) Pathologist Sig [facility] Albumin Lvl 2.7 (L) 3.5 - 5.2 gm/dL [facility] Specimen Blood Performing Organization Address City/[facility]/ZIP Code Phon e Number [facility] CANCER Unless otherwise noted, [address] all lab tests performed by: Division of Pathology and Laboratory Medicine [address] [place] [address] Pathology Outside Interpretation (12/27/2020) Pathologist Sig nature Materials Received Accession#, Stained, Block, Unstained Collect ed Received [facility] A. [id number], 2 SS, 0 BLOCKS, 0 USS 12/27/2020 Addendum 2 low Risk Human Papilloma Vir us testing (HPV subtypes tested - 6, 11, 40, 42, 43 and 44) by RNAScope HPV LR6 assay [facility] Addendum electronically signed A in-situ hybridization stud y for high and low risk Human Papilloma Virus (HPV) was performed at [facility] using the unstained slides cut from the submitted tissue block. The lesional cells express low Risk HPV, but are negative for high Risk HPV. by Michelle Hernández MD on 05/04/2021 at 11: 50 AM Clinical-pathologic correlation is necessary. Addendum 1 Additional material received on , Outside 0 SS, 1 BLOCK,0 USS, collected on 12/27/2020. [facility] Addendum electronically signed No additional study will be performed. A sarah interpretation remains unchanged. by Michelle Hernández MD on 05/03/2021 at 4: 54 PM Diagnosis Outside ([id number], 2 SS, 0 BLOCKS, 0 USS, colle [...] bmitted small fragmented specimen may not be new accounts banking representative of the entire lesion. If clinically indicated, an additional biopsy including examination of ancillary study for HPV status of the lesion is recommended. Correlation with clinical st udy and results of subsequent specimens at this anatomic location is necessary. This case was studied and di scussed at the dermatopathology faculty conference. Clinical Orthoptist(s) VGP, CAT, JLC, PN, WCC [facility] Disclaimer "Some tests reported [facility] here may have been developed and performance characteristics determined by [facility] Pathology and Laboratory Medicine. These tests have not been specifically cleared or approved by the U.S. Food and Drug Administration. If applicable, controls were reviewed and showed appropriate reactivity." Specimen Tissue Performing Organization Address City/State/ZIP Code Phon e Number [facility] [place] [address] [address] after 07/09/2020 Insurance Payer Benefit Plan / Subscriber ID Effective Phone Address T ype Group Dates [employer] [id number] 2020-Pres [address] Medicaid [place] [id number] Advance Directives Code Status Date Activated Date Inactivated Comments Full Code 04/23/2021 5:50 PM 04/29/2021 6:51 PM
--- OUTSIDE RECORDS SUMMARY | 2021-07-09 07:58 | XMS REPORT | Continuity of Care Document ---
:1975 Author Organization [facility] t Address [address] [place] [address] Care Team Providers Name Role Phone JA BLANCA Perez Primary Care Physician Unavailable Christian VALDEZ Attending Clinician Unavailable SYSTEM, NOT IN Attending Clinician Unavailable Kaylene PEREA Attending Clinician Unavailable BECCA Attending Clinician Unavailable Cornell Salomon MD Attending Clinician Cornell SALOMON Attending Clinician Unavailable Doctor Unassigned, Name Attending Clinician Unavailable Sanjuanita MCKINNEY Attending Clinician Carina ISRAEL Attending Clinician Cornell Chapman Attending Clinician FELICIANO Attending Clinician Unavailable Vee Taylor MD Attending Clinician Valeria BARAJAS Attending Clinician Feliciano BARAJAS Attending Clinician Juan Brown MD Attending Clinician Neda BARAJAS, H. Attending Clinician Juan CHANG Attending Clinician Unavailable José Miguel BARAJAS SAnisha Attending Clinician Gia Merrill MD Attending Clinician [...] Policy Number Effective Date Expiration Date S ourhan [employer] [id number] 2020 STAR NON SSI 00:00:00 [employer] STAR [id number] 2020 PLUS 00:00:00 Problems Condition Condition Condition Status Onset Resolution Last Treating Co mments Source Name Details Category Date Date Treatment Clinician Date Personal Personal Disease Active Overview: history of history of 05-03 Formattin Anderso colonic colonic 00:00: g of this n polyp polyp 00 note might be different from the original. 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 06-25 An derso blood loss blood loss 00:00: n 00 Osteoarthr Osteoarthr Disease Active 2020-04 M D itis itis 2-28 Anderso 00:00: n 00 Hypercalce Hypercalce Disease Active 2020-04 M D maddie maddie 2-28 Anderso 00:00: n 00 Iron Iron Disease Active 2020-04 deficiency deficiency 2-28 An derso anemia anemia 00:00: n 00 Groin mass Groin mass Disease Active 2020-04 M D 2 Anderso 00:00: n 00 Cellulitis Cellulitis Disease Active 2020-04 M D 2 Anderso 00:00: n 00 No known No known Disease Unive rs active active ity of problems problems [facility] Allergies, Adverse Reactions, Alerts Allergy Allergy Status Severity Reaction(s) Onset Inactive Treating Comm ents Source Name Type Date Date Clinician No Known DA Active U [facility] 5-04 Clear Allergie 00:00: Green [facility] No Known DA Active U N/A [facility] 5-04 Clear Allergie 00:00: [facility] NO KNOWN DA Active U [facility] CONTRAST 4-20 Clear MEDIA 00:00: Green ALLERG [facility] NO KNOWN DA Active U [facility] OTHER 4-20 Clear ALLERGIE 00:00: [facility] No Known DA Active U [facility] Drug 4-20 Clear Allergie 00:00: [facility] No Known DA Active U [facility] Food 4-20 Clear Allergie 00:00: Slovan [facility] No Known Drug Active [facility] No Known DA Active [facility] NO KNOWN Drug Active Univers ALLERGIE [facility] No [facility] Drug [facility] No Known Drug [facility] No Known [facility] No Known Drug [facility] Family History Family Member Diagnosis Comments Start Date Stop Date Source Natural father Alcohol abuse MD John jimenez Natural mother Completed Suicide MD Cortez Social History Social Habit Start Date Stop Date Quantity Comments Source History of tobacco Current smoker MD Cortez use Exposure to Not sure University SARS-CoV-2 (event) [facility] Alcohol intake 2021-05-01 2021-05-01 Ex-drinker MD Katharina bañuelos 00:00:00 00:00:00 (finding) Cigarettes smoked 2021-04-23 2021-04-23 MD John jimenez current (pack per 00:00:00 00:00:00 day) - Reported Tobacco use and 2021-04-23 2021-04-23 Smokeless MD [place] on exposure 00:00:00 00:00:00 tobacco non-user Sex Ass[birth year] At [birth year] MD [place] 00:00:00 00:00:00 Smoking Status Start Date Stop Date Source Unknown if ever smoked [facility] Ex-smoker 2021-04-23 00:00:00 2021-04-23 00:00:00 MD Padilla son Medications Ordered Filled Start Stop Current Ordering Indication Dosage Frequency Signature Comments Components Source Medication Medication Date Date Medication? Clinician (SIG) Name Name ondansetron 2021- No 4mg 4 mg, Slow Univers (ZOFRAN 06-18 IV Push, ity of (PF)) 07:15: 06:23 ONCE, 1 [place] injection 4 00 :00 dose, On Medi ирина mg [facility] 06/18/21 at 0115, JEFFERY morpHINE 2021- No 4mg 4 mg, Slow Un laura injection 4 06-18 IV Push, ity of mg 07:15: 06:23 ONCE, 1 [place] 00 :00 dose, On Medical Mon Branch 06/18/21 at 0115, STAT ampicillin- 2021- No 3g 3 g, IV Un laura sulbactam 06-18 Piggyback, ity of (UNASYN) 3 07:15: 07:23 ONCE, 1 Juan as g in NaCl 00 :00 dose, On Medica l 0.9% (NS) [facility] 100 mL 06/18/21 at MINI-BAG 0115, Administer over 30 Minutes, 100 mL
Reas on for Anti-Infec tive: Documented Infection< br>Documen annita Infection Site: Skin / Soft Tissue
Duration of Therapy: Other (see Comments) cephALEXin Yes [id number] 500mg Take 1 Univers (KEFLEX) - capsule by ity o f 500 mg 00:00: mouth 4 [place] capsule 00 (four) Medical times Branch daily. sulfamethox 2021- Yes [id number] 2{tbl} Take 2 Univers azole-trime 2-21 - tablets by i ty of thoprim 00:00: 05:59 mouth [place] 800-160 mg 00 :00 every 12 Medic al per tablet (twelve) Branc h hours for 7 days. ergocalcife 2021- No Obstructive [id number] Take 1 MD rol 05-03 sleep apnea [...] 22.5mg Take 1 and MD (MSIR) 15 -02 <Unspecifie one-half Anderso mg IR 00:00: d [...] Yes Groin mass Fill MD e glycol -02 <Unspecifie powder up Anderso (GLYCOLAX) 00:00: d [...] 3 (three) times a day. enoxaparin 2021- No Obstructive 130mg Inject MD (LOVENOX) 04-2920 sleep apnea 0.86 mL Anderso 150 mg/mL [...] Time Observation Value Comments Source Systolic blood 2021-06-18 07:24:00 131 mm[Hg] Univer [facility] Diastolic blood 2021-06-18 07:24:00 82 mm[Hg] [facility] Heart rate 2021-06-18 07:24:00 113 /min [facility] Respiratory rate 2021-06-18 07:24:00 18 /min [facility] Oxygen saturation in 2021-06-18 07:24:00 94 /min [facility] Arterial blood by [facility] Pulse oximetry Branch Body temperature 2021-06-18 04:29:00 37.56 [facility] Body weight 2021-06-18 04:29:00 90.719 kg [facility] Height 2019-07-15 13:44:00 172.72 CM Weight 2019-07-15 13:44:00 177 KG Height/Length 2021-05-15 10:02:04 172.72 cm Measured Height/Length Dosing 2021-05-15 10:02:04 172.7 cm Weight Dosing 2021-05-15 10:02:04 181.4 kg Height/Length 2021-05-15 09:49:58 172.72 cm Measured Height/Length Dosing 2021-05-15 09:49:58 172.7 cm Weight Dosing 2021-05-15 09:49:58 181.4 kg Height/Length 2021-05-15 09:46:27 172.72 cm Measured Height/Length Dosing 2021-05-15 09:46:27 172.7 cm Weight Dosing 2021-05-15 09:46:27 181.4 kg Height/Length 2021-05-15 09:41:09 172.72 cm Measured Height/Length Dosing 2021-05-15 09:41:09 172.7 cm Weight Dosing 2021-05-15 09:41:09 181.4 kg Height/Length 2021-05-15 08:54:01 172.72 cm Measured Height/Length Dosing 2021-05-15 08:54:01 172.7 cm Weight Dosing 2021-05-15 08:54:01 181.4 kg Systolic blood 2021-04-29 21:39:27 135 mm[Hg] pressure Diastolic blood 2021-04-29 21:39:27 77 mm[Hg] MD Maryan ludwig pressure Heart rate 2021-04-29 21:39:27 82 /min MD [...] Date / Time Performing Clinician Source Performed COMP. METABOLIC PANEL 2021-06-18 05:19:00 Corina Salomon [facility] ([id number]) [facility] CBC WITH DIFF 2021-06-18 05:19:00 Corina Salomon [facility] REFERRAL- REQUEST/RESPONSE 2021-05-30 06:01:00 Doctor Unassigned , [facility] COMPLETE BLOOD COUNT W/ 2021-04-29 12:48:00 Tiesha Harding MD DIFFERENTIAL BASIC METABOLIC PANEL, 2021-04-29 12:48:00 Tiesha Harding MD CALCIUM TOTAL MAGNESIUM LEVEL 2021-04-29 12:48:00 Tiesha Harding MD Andpuneeto n PHOSPHORUS LEVEL 2021-04-29 12:48:00 Tiesha Harding MD on Results CBC 2021-04-29 12:48:00 Juanita Shaw MD MANUAL DIFFERENTIAL 2021-04-29 12:48:00 Juanita Shaw MD Randy son GLUCOSE LEVEL 2021-04-29 12:48:00 Juanita Shaw MD BLOOD UREA NITROGEN 2021-04-29 12:48:00 Juanita Shaw MD Randy son ELECTROLYTE PANEL 2021-04-29 12:48:00 Juanita Shaw MD SERUM CREATININE 2021-04-29 12:48:00 Juanita Shaw MD .GLOMERULAR FILTRATION 2021-04-29 12:48:00 Juanita Shaw MD An derson RATE CALCIUM LEVEL TOTAL 2021-04-29 12:48:00 Juanita Shaw MD Randylouie lua COMPLETE BLOOD COUNT W/ 2021-04-28 08:36:00 Tiesha Harding MD DIFFERENTIAL Results CBC 2021-04-28 08:36:00 Juanita Shaw MD MANUAL DIFFERENTIAL 2021-04-28 08:36:00 Juanita Shaw MD Randy son BASIC METABOLIC PANEL, 2021-04-28 08:30:00 Tiesha Harding MD CALCIUM TOTAL MAGNESIUM LEVEL 2021-04-28 08:30:00 Tiesha Harding MD Andpuneeto n PHOSPHORUS LEVEL 2021-04-28 08:30:00 Tiesha Harding MD on GLUCOSE LEVEL 2021-04-28 08:30:00 Juanita Shaw MD BLOOD UREA NITROGEN 2021-04-28 08:30:00 Juanita Shaw MD Randy son ELECTROLYTE PANEL 2021-04-28 08:30:00 Juanita Shaw MD SERUM CREATININE 2021-04-28 08:30:00 Juanita Shaw MD .GLOMERULAR FILTRATION 2021-04-28 08:30:00 Juanita Shaw MDson RATE CALCIUM LEVEL TOTAL 2021-04-28 08:30:00 Juanita Shaw MD [place] lua US LEG VENOUS DOPPLER 2021-04-27 14:47:04 Dat Nesbitt MD And erson BILATERAL BASIC METABOLIC PANEL, 2021-04-27 11:25:00 Tiesha Harding [...] 2021-04-27 11:25:00 Juanita Shaw MD Randy son COMPLETE BLOOD COUNT W/ 2021-04-27 11:25:00 Tiesha Harding MD DIFFERENTIAL MRI PELVIS W WO CONTRAST 2021-04-27 01:50:59 Dat Nesbitt MD POC GLUCOSE SCREEN 2021-04-26 21:20:00 Dat Nesbitt MD on POC GLUCOSE SCREEN 2021-04-26 17:36:00 Dat Nesbitt MD on PATHOLOGY BIOPSY 2021-04-26 17:30:00 Maria E Valdez MD INTERPRETATION POC GLUCOSE SCREEN 2021-04-26 16:36:00 Dat Nesbitt MD on DIAGNOSTIC UPPER 2021-04-26 16:36:00 Maria E Valdez MD GASTROINTESTINAL ENDOSCOPY DIAGNOSTIC FLEXIBLE 2021-04-26 16:36:00 Maria E Valdez MD COLONOSCOPY PROXIMAL TO SPLENIC FLEXURE POC GLUCOSE SCREEN 2021-04-26 14:14:00 Dat Nesbitt MD on COMPLETE BLOOD COUNT W/ 2021-04-26 09:20:00 Tiesha Hadring MD DIFFERENTIAL BASIC METABOLIC PANEL, 2021-04-26 09:20:00 Tiesha Harding MD CALCIUM TOTAL MAGNESIUM LEVEL 2021-04-26 09:20:00 Tiesha Harding MD n PHOSPHORUS LEVEL 2021-04-26 09:20:00 Tiesha Harding MD on Results CBC 2021-04-26 09:20:00 Juanita Shaw MD MANUAL DIFFERENTIAL 2021-04-26 09:20:00 Juanita Shaw MD GLUCOSE LEVEL 2021-04-26 09:20:00 Juanita Shaw MD BLOOD UREA NITROGEN 2021-04-26 09:20:00 Juanita Shaw MD ELECTROLYTE PANEL 2021-04-26 09:20:00 Juanita Shaw MD SERUM CREATININE 2021-04-26 09:20:00 Juanita Shaw MD .GLOMERULAR FILTRATION 2021-04-26 09:20:00 Juanita Shaw MD RATE CALCIUM LEVEL TOTAL 2021-04-26 09:20:00 Juanita Shaw MD THYROID STIMULATING 2021-04-26 09:20:00 Juanita Shaw MD HORMONE POC GLUCOSE SCREEN 2021-04-26 05:03:00 Dat Nesbitt MD on POC GLUCOSE SCREEN 2021-04-25 23:32:00 Dat Nesbitt MD on POC GLUCOSE SCREEN 2021-04-25 20:59:00 Dat Nesbitt MD on CT CHEST PULMONARY 2021-04-25 17:38:00 Dat Nesbitt MD on EMBOLISM W CONTRAST POC GLUCOSE SCREEN 2021-04-25 16:19:00 Dat Nesbitt MD on COMPLETE BLOOD COUNT W/ 2021-04-25 09:19:00 Tiesha Harding MD DIFFERENTIAL BASIC METABOLIC PANEL, 2021-04-25 09:19:00 Tiesha Harding MD CALCIUM TOTAL MAGNESIUM LEVEL 2021-04-25 09:19:00 Tiesha Harding MD PHOSPHORUS LEVEL 2021-04-25 09:19:00 Tiesha Harding MD on Results CBC 2021-04-25 09:19:00 Juanita Shaw MD MANUAL DIFFERENTIAL 2021-04-25 09:19:00 Juanita Shaw MD GLUCOSE LEVEL 2021-04-25 09:19:00 Juanita Shaw MD BLOOD UREA NITROGEN 2021-04-25 09:19:00 Juanita Shaw MD ELECTROLYTE PANEL 2021-04-25 09:19:00 Juanita Shaw MD SERUM CREATININE 2021-04-25 09:19:00 Juanita Shaw MD .GLOMERULAR FILTRATION 2021-04-25 09:19:00 Juanita Shaw MD derson RATE CALCIUM LEVEL TOTAL 2021-04-25 09:19:00 Juanita Shaw MD POC GLUCOSE SCREEN 2021-04-25 05:28:00 Dat Nesbitt MD on TRANSFUSE RED BLOOD CELLS 2021-04-25 04:19:00 Viviana Stauffer MD POC GLUCOSE SCREEN 2021-04-25 02:32:00 Dat Nesbitt MD on TRANSFUSE RED BLOOD CELLS 2021-04-24 21:22:00 Viviana Stauffer MD CALCIUM IONIZED, VENOUS 2021-04-24 18:40:00 Dat Nesbitt MD PTH INTACT 2021-04-24 18:40:00 Dat Nesbitt MD VITAMIN D 25 HYDROXY LEVEL 2021-04-24 18:40:00 Dat Nesbitt HIV-1/2 ANTIGEN AND 2021-04-24 18:40:00 Viviana Stauffer MD ANTIBODIES, FOURTH GENERATION HEPATITIS C VIRUS ANTIBODY 2021-04-24 18:40:00 Viviana Stauffer MD TMP HIV 1/2 AG&AB PATH 2021-04-24 18:40:00 Viviana Stauffer INTERP TMP HCVAB INTERP 2021-04-24 18:40:00 Viviana Stauffer MD rson POC GLUCOSE SCREEN 2021-04-24 18:19:00 Dat Nesbitt MD on PREPARE RBC 2021-04-24 17:11:00 Viviana Stauffer MD Randy son PRBC PRODUCT READY FOR 2021-04-24 17:11:00 Dat Nesbitt MD ARTISTIC DIRECTOR POC GLUCOSE SCREEN 2021-04-24 14:55:00 Dat Nesbitt MD on CT ABDOMEN PELVIS W WO 2021-04-24 14:29:00 Tiesha Harding MD CONTRAST COMPLETE BLOOD COUNT W/ 2021-04-24 08:40:00 Tiesha Harding MD DIFFERENTIAL BASIC METABOLIC PANEL, 2021-04-24 08:40:00 Tiesha Harding MD CALCIUM TOTAL MAGNESIUM LEVEL 2021-04-24 08:40:00 Tiesha Harding MD PHOSPHORUS LEVEL 2021-04-24 08:40:00 Tiesha Harding MD on Results CBC 2021-04-24 08:40:00 Juanita Shaw MD MANUAL DIFFERENTIAL 2021-04-24 08:40:00 Juanita Shaw MD GLUCOSE LEVEL 2021-04-24 08:40:00 Juanita Shaw MD BLOOD UREA NITROGEN 2021-04-24 08:40:00 Juanita Shaw MD ELECTROLYTE PANEL 2021-04-24 08:40:00 Juanita Shaw MD SERUM CREATININE 2021-04-24 08:40:00 Juanita Shaw MD .GLOMERULAR FILTRATION 2021-04-24 08:40:00 Juanita Shaw MDson RATE CALCIUM LEVEL TOTAL 2021-04-24 08:40:00 Juanita Shaw MD son URINE CULTURE 2021-04-24 04:38:00 Tiesha Harding MD POC GLUCOSE SCREEN 2021-04-24 04:19:00 Juanita Shaw MD on WOUND CULTURE W/ GRAM 2021-04-24 04:01:00 Tiesha Harding MD STAIN XR CHEST 1 VW 2021-04-24 02:40:06 Tiesha Harding MD XR HIP 2 OR 3 VW W PELVIS 2021-04-24 02:39:23 Tiesha Harding MD LEFT BLOODCULTURE 2021-04-24 02:15:00 Tiesha Harding MD IRON LEVEL 2021-04-24 02:15:00 Jayne Taylor MD Vee TRANSFERRIN 2021-04-24 02:15:00 Jayne Taylor MDaine FERRITIN LVL 2021-04-24 02:15:00 Tiesha Harding MD [...] BLOOD COUNT W/ 2021-04-23 22:13:00 Emma Bell MDrson DIFFERENTIAL COMPREHENSIVE METABOLIC 2021-04-23 22:13:00 Emma Bell MDrsotto PANEL MAGNESIUM LEVEL 2021-04-23 22:13:00 Emma Bell MD PHOSPHORUS LEVEL 2021-04-23 22:13:00 Emma Bell MD HIV-1/2 ANTIGEN AND 2021-04-23 22:13:00 Emma Bell MD Randy [facility] ANTIBODIES, FOURTH GENERATION HEPATITIS B CORE ANTIBODY 2021-04-23 22:13:00 Emma Bell MD HEPATITIS C VIRUS ANTIBODY 2021-04-23 22:13:00 Emma Bell HEPATITIS B SURFACE 2021-04-23 22:13:00 Emma Bell MD Randy [facility] ANTIGEN, SERUM HEPATITIS B SURFACE 2021-04-23 22:13:00 [facility] ANTIBODY, SERUM PROTHROMBIN TIME 2021-04-23 22:13:00 Emma Bell MD APTT 2021-04-23 22:13:00 Emma Bell MD URINALYSIS WITH 2021-04-23 22:13:00 Emma Bell MD MICROSCOPIC IF INDICATED Results CBC 2021-04-23 22:13:00 Emma Bell MD MANUAL DIFFERENTIAL 2021-04-23 22:13:00 [facility] GLUCOSE LEVEL 2021-04-23 22:13:00 Emma Bell MD BLOOD UREA NITROGEN 2021-04-23 22:13:00 Emma [facility] ELECTROLYTE PANEL 2021-04-23 22:13:00 [facility] 2021-04-23 22:13:00 Emma Bell MD .GLOMERULAR FILTRATION 2021-04-23 22:13:00 Emma Bell MD An derson RATE CALCIUM LEVEL TOTAL 2021-04-23 22:13:00 Emma Bell [facility] ALBUMIN LEVEL 2021-04-23 22:13:00 Emma Bell MD ALKALINE PHOSPHATASE 2021-04-23 22:13:00 Emma Bell MD John rson ALANINE AMINOTRANSFERASE 2021-04-23 22:13:00 Emma Bell MD [...] 00:00:00 Deedee Samuels MD Andpuneeto n INTERPRETATION [id number] 2020-09-04 00:00:00 [facility] [id number] 2020-08-31 00:00:00 [facility] [id number] 2020-08-31 00:00:00 [facility] [id number] 2020-08-30 00:00:00 [facility] Plan of Care Planned Activity Planned Date Details Comments Source Future Scheduled Test 1981 00:00:00 COVID-19 Vaccination MD Cortez (1) [code = COVID-19 Vaccination (1)] Future Appointment 2022-05-03 08:20:00 MD Diego Martinez MD [address] [place] [address] Future Appointment 2022-05-03 08:20:00 MD Diego Martinez MD [address] [place], [place] [address] Procedure 2022-05-03 14:20:00 DIAGNOSTIC FLEXIBLE Rebeca Cortez COLONOSCOPY PROXIMAL TO SPLENIC FLEXURE Encounters Start End Encounter Admission Attending Care Care Encounter Source Date/Time Date/Time Type Type Clinicians Facility Department ID 2021-05-03 Outpatient SORAYA VALDEZ Jah/Hep/Nu [id number] 11:13:34 TYRA Yango Laurie bañuelos 2021-05-01 Outpatient SORAYA MAURICE MDA [id number] 13:48:47 PROVIDER Vignesh o n 2021-04-26 Outpatient BRIT SORAYA Jah/Hep/Nu [id number] 15:06:47 CALE bañuelos 2021-02-07 Outpatient BECCA [facility] [id number] [place] 12:13:33 [facility] 2020-08-29 Inpatient [facility] [id number] [facility] 17:04:00 [id number] [facility] 2021-06-17 2021-06-18 Emergency [facility] [id number] Univers 22:32:00 01:38:00 Corina ANG [id number] ity [facility] [id number] [facility] [id number] [facility] 084 Branch 2021-06-17 2021-06-18 Emergency X [facility] ERT [id number] Univers 22:32:00 01:38:00 CORINA oteroy [facility] 2021-05-30 2021-05-30 Orders Doctor [place] [id number] Univers 00:00:00 00:00:00 Only Unassigned, RYAN [id number] ity of [facility] [id number] [facility] [id number] [facility] 009 Branch 2021-04-23 2021-04-29 Inpatient ER FELICIANO, ED [facility] [id number] 15:10:00 16:46:00 Vignesh bañuelos 2021-04-28 2021-04-28 Inpatient EL KHEDER, ED MDA MDA [id number] 12:24:18 12:44:48 Vigneshpuneet bañuelos 2021-04-25 2021-04-25 Inpatient EL KHEDER, ED MDA MDA [id number] 04:00:06 04:37:00 Vignesh bañuelos 2021-04-24 2021-04-24 [facility] MDA MDA [id number] 17:02:19 17:29:48 Vignesh bañuelos 2021-04-24 2021-04-24 Inpatient EL MEÑOEDER, ED MDA MDA [id number] 15:59:11 16:20:43 Vignesh bañuelos 2020-08-31 2020-08-31 Outpatient Rostata, HCACL LABO [id number] [facility] 08:30:00 08:30:00 Cb [id number] [facility] 2019-07-15 2019-07-15 Emergency E GOLDIE, [facility] [id number] Jody 12:28:00 13:10:00 [facility] 2018-09-22 2018-10-08 Inpatient 1 Jeremy Pretty [facility] PSY [id number] St. 12:33:00 13:59:00 Maria De Jesus, [place] [facility] Results Test Description Test Time Test Comments Results Result Comments Source COMP. METABOLIC PANEL (88809) 2021-06-18 05:48:28 Test Item Value Reference Range Interpretation Comme nts NA (test code = 9136149594) 135 mmol/L 135-145 K (test code = 3433834278) 4.1 mmol/L 3.5-5.0 CL (test code = 5021181526) 106 mmol/L 98-108 CO2 TOTAL (test code = 7588238960) 28 mmol/L 23-31 AGAP (test code = 9143202684) 2-16 L BUN (test code = 8461952934) 11 mg/dL 7-23 GLUCOSE (test code = 2227900359) 121 mg/dL 70-110 H CREATININE (test code = 0.85 mg/dL 0.60-1.25 9760005264) TOTAL BILI (test code = 0.4 mg/dL 0.1-1.7 0768394147) CALCIUM (test code = 1708893711) 12.1 mg/dL 8.6-10.6 H T PROTEIN (test code = 5023545716) 7.5 g/dL 6.3-8.2 ALBUMIN (test code = 2292572175) 3.4 g/dL 3.5-5.0 L ALK PHOS (test code = 3592959443) 107 U/L 34-122 ALTv (test code = 1742-6) 13 U/L 5-50 AST(SGOT) (test code = 3812833633) 18 U/L 13-40 eGFR (test code = 9098356920) mL/min/1.73m2 SARAH (test code = SARAH) Association of Glomerular Filtration Rate (GFR) and Staging of Kidney Disease* + +-------- + ------+| GFR (mL/min/1.73 m2) ?| With Kidney Damage ?| ?Without Kidney Damage+ +-- + +| ?>90 ?| ?Stage one ?| ? Normal ?+ +------- + -------+| ?60-89 ?| ?Stage two ?| ? Decreased GFR ? + +-------- + ------+| ?30-59 ?| ?Stage three ?| ? Stage three ? + +-------- + ------+| ?15-29 ?| ?Stage four ? | ? Stage four ?+ +------- + -------+| ?<15 (or dialysis) ? ?| ?Stage five ? | ? Stage five ?+ +------- + -------+ *Each stage assumes the associated GFR level has been in effect for at least three months. ?Stages 1 to 5, with or without kidney disease, indicate chronic kidney disease. Notes: Determination of stages one and two (with eGFR >59mL/min/1.73 m2) requires estimation of kidney damage for at least three months as defined by structural or functional abnormalities of the kidney, manifested by either:Pathological abnormalities or Markers of kidney damage (including abnormalities in the composition of the blood or urine or abnormalities in imaging tests). Lab Interpretation (test code = Abnormal 57753-8) [facility] WITH [id number] 05:43:12 Test Item Value Reference Range Interpretation Comments WBC (test code = See_Comment H [Automated 2948-2) message] The system which generated this result transmit annita reference range : 4.20 - 10.70 10*3/?L. The reference range was not used to interpret this result as normal/abnormal . RBC (test code = See_Comment [Automated 133-8) message] The system which generated this result transmit annita reference range : 4.26 - 5.52 10*6/?L. The reference range was not used to interpret this result as normal/abnormal . HGB (test code = 10.7 g/dL 12.2-16.4 L 718-7) HCT (test code = 35.3 % 38.4-49.3 L 4544-3) MCV (test code = 81.5 fL 81.7-95.6 L 787-2) MCH (test code = 24.7 pg 26.1-32.7 L 785-6) MCHC (test code = 30.3 g/dL 31.2-35.0 L 786-4) RDW-SD (test code = 70.8 fL 38.5-51.6 H 17116-5) RDW-CV (test code = 24.1 % 12.1-15.4 H 788-0) PLT (test code = See_Comment H [Automated 777-3) message] The system which generated this result transmit annita reference range : 150 - 328 10*3/ ?L. The reference range was not u sed to interpret th is result as normal/abnormal . MPV (test code = 8.4 fL 9.8-13.0 L 63817-0) NRBC/100 WBC (test See_Comment [Automat ed code = 4670674322) message] The system which generated this result transmit annita reference range : 0.0 - 10.0 /100 WBCs. The reference range was not used to interpret this result as normal/abnormal . NRBC x10^3 (test code <0.01 See_Comment [Auto mated = 8707104286) message] The system which generated this result transmit annita reference range : 10*3/?L. The reference range was not used to interpret this result as normal/abnormal . GRAN MAT (NEUT) % 80.6 % (test code = 770-8) IMM GRAN % (test code 1.00 % = 3084908200) LYMPH % (test code = 11.5 % 736-9) MONO % (test code = 5.2 % 5905-5) EOS % (test code = 1.2 % 713-8) BASO % (test code = 0.5 % 706-2) GRAN MAT x10^3(ANC) 20.78 10*3/uL 1.99-6.95 H (test code = 7859745257) IMM GRAN x10^3 (test 0.26 10*3/uL 0.00-0.06 H code = 8565146777) LYMPH x10^3 (test code 2.97 10*3/uL 1.09-3.23 = 731-0) MONO x10^3 (test code 1.35 10*3/uL 0.36-1.02 H = 742-7) EOS x10^3 (test code = 0.30 10*3/uL 0.06-0.53 711-2) BASO x10^3 (test code 0.12 10*3/uL 0.01-0.09 H = 704-7) Lab Interpretation Abnormal (test code = 06939-5) [id number] 17:50:04 Test Item Value Reference Range Interpretation Comments Materials Received (test r0qfzNFeKUUarWVlElQh code = 9973) ZWOpQOAdf7poATYifRIb ZzEwMzNcZnRuYmpcdWMx NJMoIsWkr3omn783uUEh v8dlCPNmXlR2jGHjTVKx fPJqN236LFUcLAomf4ud j7VwPIUblYPnl8J7PUDG pdrdxAx9wHkiK25ml7K8 OjznC1slTWGxMLPqA8Zp HT8sSWEyLic5QNU2BBS0 PYVwJFBfV7EiBA4oKEYc rXHgWOw5h9jghLobHPVb TRT8d0caIKovpkNaXJ5b zj1gcSr0t6qxqrAfRZIk XDLkgCEYIHEzE0EgrSwr Ux7csCu3iFuoBgnuSJD5 Ons7XQ4wop86zti6bAzg KLYqbwbzMyQ1MCjaYLSz zfwxWBi5XYxdCSRwpAqu MFxtYXJncjcyMFxtYXJn oBI9XAQbxXQeH0SsEKVi GNtuTLDartp5QqMvJk6h mRAenZcgAMwrh4pbo8yt oUAtHsx8HDRvYiJwMcfk BYkat9San1qzRJKqfb0q WGC3zCGrzRdkq6D3jWXq MTZgoRJjrnCcHMDadu85 xEWqqFHeySPozo6tabHw pBQtlQZkHWF4rCJmiqLl AWFivCGuLRFyTT6hcEYc CXCwtE4gxwjjRCBfJoIb jnhmPWEdwQlkngHdEw7o wLhjQVV9ACdtB2unqT6m QyA9KOdwH8toxQ5wSWg4 IBnmlRQ2GSFdwW3oLC3f iwvre5oqGnFpLJ7kylrv s7pcAcOzUP2lmtg9r8cv QJL8KBcdRKKaClY5mdY2 NDBcaGVhZGVyeTcyMFxm q779KVP2VjQnTNMeo2Gm O8ChqLxkL97qeAloS70w XGFibUwjiC5xfEaqeO1e IlQyVvNuYBj9nq62KWd1 ustphEjiEAm3zqKlECRd DSD8DCSssKPvBGYoL1r7 vcKyINNwJZS9ELUexXDh XBSxJ4e7pwXtKBQ1CHb6 cnBhZGRmdDNcdHJwYWRk YjBcdHJwYWRkZmIzXHRy yVXekUAakGOfwO5hwQwj HAQdaBWzpN6yPZC8IAYh cmgzMjBcdHJoZHJcbHRy aq65MKZmnnDguQXklHvz bUHdCBO6ZGLyPLAuGODz MYE3WXOaOqOxuoLoXPsk bGJyZHJiXGJyZHJzXGJy GHE1OQEdCwPgzwTvOUkq bGJyZHJsXGJyZHJzXGJy ARW4JYHsNwEdosCnMTtq bGJyZHJyXGJyZHJzXGJy KSE5DTUeTxJaayJhVNtb bHBhZHQxMFxjbHBhZGZ0 B6yueWCjPWZsBZprpFFb YVZoW0xkrNGkYCavGDOc cGFkZmwzXGNscGFkYjBc D1bnYDFtNrDaH0CsrKg5 MDAwXGNsdmVydGFsdFxj iDWnSPK5MGJiLPHwHZIt DKP9FJLnUrVhhiXmNJon bGJyZHJiXGJyZHJzXGJy CDY7FXSlYsPuakJnYSye bGJyZHJsXGJyZHJzXGJy SAL6KZLpNjVvyrUqIMvf bGJyZHJyXGJyZHJzXGJy VSR5BGKbLeDgbrFfVPdi bHBhZHQxMFxjbHBhZGZ0 B5rahMAoKRKrQOzndEWc QOOpM9zwbNZyKOdiCHFb cGFkZmwzXGNscGFkYjBc F5njNUWbMoBcR0ZshQz9 NjAwXGNsdmVydGFsdFxj yOTkJOG2PVHxNKKfMIPj JXW4HHEmKaGlipCiXFyt bGJyZHJiXGJyZHJzXGJy NJY1QWFdIeEzirNmSErs bGJyZHJsXGJyZHJzXGJy WZR3ESPuWzMtbuIqNDce bGJyZHJyXGJyZHJzXGJy IDT8CEKjDaNzfqYpSRfd bHBhZHQxMFxjbHBhZGZ0 I0pxfYVeHEAxPDnjeBMu RJDpJ0pfwEPqVYwoDNVg cGFkZmwzXGNscGFkYjBc M2opFOWvBxDjI6BesMv9 OyTbJSUafhIudD13Hieu i6DjRQAuTFI2WWnvZGxl bFxwbGFpblxmMVxmczIw CCkgaenaNILsAThoP6fp CtPoJBGiyZujBFnlm7Hm XGYxXGNmMlxmczIwXGIg DRGlVJUklV6nCfmdN2Hv xT4xIVgpKiieU4ltLINc c4BxfS0dYKvaaBEczfqv MVxmczIwXGxhbmcxMDMz GBryK5lcRbVyIDWigYsj LIxfv4ZjZJCvDWLoTzum exMiPUk0qsLtNJZwtJqt xYTzLHlfaqZikIwiw0Wc alDcjRihCMWrDDt1jsOv ijthySk5iATohUjiDWBw cTmpjT8lUzAuXnUlIRih bGFpblxmMVxmczIwXGxh ptdoIWLhPOxuU0vzFtLs URKmwKnoJHmkp3LdGQWw HACeSdkmdeAsPQTpF15q bGVjdGVkXHBsYWluXGYx XGZzMjBcbGFuZzEwMzNc aGljaFxmMVxkYmNoXGYx ZTbhF3zvQkPvQ0MrXHYi MgZlrSFjX1vdV8UtfUvm YXJkXGludGJsXHNzcGFy MWS8oJOdcfCkoIIgbUEr TDYiRDheQAW7fBTyisxz yKAivebxWYfmocZ0MXMx YWluXGYxXGZzMjBcbGFu ZzEwMzNcaGljaFxmMVxk BoBgHDOzCDgrS5nuAjFg F1CnRFBgPfXpJoZOSCFp aXZlZFxwbGFpblxmMVxm czIwXGxhbmcxMDMzXGhp A3mwVeXjFVVvuPotYUqq h8QvHDYiOSOuRjwdwdYa RXx4xoRcJJWlaYluiN19 Axtmwe66ABYtb2emEWZj J2BimTTkDRHbcPMhSTxp MDhcdHJwYWRkZmwzXHRy cGFkZHIxMDhcdHJwYWRk ZnIzXHRycGFkZHQwXHRy gIJhDLB7P3p5nrNrVOEk MLu6xlBvCBKhYvVhdFTj ELK5PBr1VjquxbU6zHYk M5m9PvnmzkMcGBicoSIh ds67PGQndwIxmMUjvEtn vYFfORD5DVDyFDNrSPKa UVV4SJLkSgSrkaIkOIwy bGJyZHJiXGJyZHJzXGJy LPE0QAPhCgJczjYfZRns bGJyZHJsXGJyZHJzXGJy BIP2TLWdGiNadyHoGDan bGJyZHJyXGJyZHJzXGJy FSL7FUGsZgQzouKoPMak bHBhZHQxMFxjbHBhZGZ0 K3duoXRtCOKjBKdebORu FIJzY5qsgHDhWAvsRREk cGFkZmwzXGNscGFkYjBc X0kdQUSwUoCsJ1MewNf5 MDAwXGNsdmVydGFsdFxj fRYlFWH1UUOrSJZzWDDa CUK5FIWtWcAmmiKtOMoq bGJyZHJiXGJyZHJzXGJy UUH3PJZdPeSugtQsIBxh bGJyZHJsXGJyZHJzXGJy OFK8YDJaFjJgleSaRIgq bGJyZHJyXGJyZHJzXGJy JSO6PPUaSjDszxQmJUxd bHBhZHQxMFxjbHBhZGZ0 U6ncfAZxLEUpTQfxqJSw MFNtL9yncUQsLEquGMJx cGFkZmwzXGNscGFkYjBc U9nlVDHeYrCeV0TcfAo0 NjAwXGNsdmVydGFsdFxj mBJrLTP0PBVeYGQcKCDj TXO2DSGhExTdyrBrAZgv bGJyZHJiXGJyZHJzXGJy PBE6GPUnHoIpbrHqFTbd bGJyZHJsXGJyZHJzXGJy MPJ6AFHaXdBwwrLuBOoy bGJyZHJyXGJyZHJzXGJy DBS0CKAiXeVmssMiJQlf bHBhZHQxMFxjbHBhZGZ0 Q1rntURcCZYkGRjjvKFd ECMcR1atxLHvNOyjLRMh cGFkZmwzXGNscGFkYjBc L0ppMXAjFoCaY2UidHu9 RiOmYNNnlrViwO00Lahh w4FbDQYmJMK5UFnxXNag bFxwbGFpblxmMFxmczI0 XHBsYWluXGYxXGZzMjBc bGFuZzEwMzNcaGljaFxm HVodRiSwRCMoTFtdJ6yd XhJvL8RfSJVgHoXcDD9f ZyV3XDVnBwXsOIWvJMGM KLMgTJLKG0XMFrtnFZTQ O1EvaUfuhU5qVzBgQeSd EKaiAJ2aHHWyI8ghrNUb OJEbAIJjK7hxKzFlrJ4k aFxmMVxjZjJcZnMyMFxs dHJjaFxjZWxsXHBhcmRc vC53Cmwle4TpLUZdSZT3 MFxzMFxxbFxwbGFpblxm YCzqtuP9ZPYaNLrsOJDj XGZzMjBcbGFuZzEwMzNc aGljaFxmMVxkYmNoXGYx PYrwR2uxNjLnA5BdYJEx HoXrQS8vKhUfZpSavKzc tZ9kFeVcHrViZXerRN1y NJWzT2lfvYVdDPOeVYHd X8xoXjZkrX5dbPftPZdn ZjJcZnMyMFxsdHJjaFxj HXlcFYRsajYpxK21Jnyx k8RjQQTwLJC6EJjqJPgh bFxwbGFpblxmMFxmczI0 XHBsYWluXGYxXGZzMjBc bGFuZzEwMzNcaGljaFxm YFikOpPbCIBpYNcjP7mg ZfPnO7OrXOVgHbExQDUs MzAvMjAyMVxwbGFpblxm MVxmczIwXGxhbmcxMDMz EQdfH8ivBxBoLBXmnLuk UGkmi8GxKUIzFCYzEptd liBcJUn4gjQoXLXjiPqm bE16Uwjpnc69AYGbliQm c3YfARUgEEA7UFppEDnd bFxwbGFpblxmMFxmczI0 XHBsYWluXGYxXGZzMjBc bGFuZzEwMzNcaGljaFxm NIaiZuFtDBSiLTubK4fb ZjFcZnMyMFxwYXJ9 Addendum 2 (test code = j5jhlMSfVPCzfAO6OuDm 38) XBVjv5cgv4GphYYbjSNm TZljjFEmxmWcsf75aOA4 jM85FT9xPKQuAzE7MFOk bhS5Zka6LRQlSJFyjHXa G006u4kew9qgyxKcxZX9 cRurXZQwrlbsKeT4IMcn AYJeyzmmRDm6XQgwYRVp eCS2WKUssTTbT4OcAKRm OG3xzim3WCZ3VNtlQFEo CpK6ZTVojSIaWROowEgb MXciq597TNZ5SuCpWDOd gfXzfCpfuK9yYjZgXPLj g0qyGpzepeQAgN3njeCR YXBpbGxvbWEgVmlydXMg dGVzdGluZyAoSFBWIHN1 VhU3qAYlTGSyo0QoWULw AYJwTHJiDOY9ALpnHSMv BTEvXJYtROC7QLtuHkbu Ut2YI7RhdWTcGLOPYSoP CtIdw8QitSPhxHYnPIUb ciBBIGluLXNpdHUgaHli cmlkaXphdGlvbiBzdHVk xHCpx6HwvFvuoGSumaBc yY23ZCIzz1pdQOTgEE4y BNWolMmwv85aREVfkvJq IChIUFYpIHdhcyBwZXJm u8MrUURgAIZdSCSgSE6k SKWuc44zmAUpsmcmhOth NHXju6IueZ6yRKTzcDub AYWsM1K4ZTWvm81rqMqh OPL2Sm5oyCLxGDD5yTDe qZVcSgkjO9tyVEWmTWUc JQKgk10trQUkKEiocjOw eHByZXNzIGxvdyBSaXNr YBzBIgvqCtB1PVRgYVVv KOfvgVl4LAIix1FmaEtl hQDTbHCgFVkGWq1qkXYz IAKzddAHyXvnyJMzaR8s YWKca0baW0csWFYopuKh dSV0kS2lCHkeHI8lN6Qt j0OayJ2jPTDwmuwtMKAa XHBhcn0= Addendum 1 (test code = k8dhcUMzXMTecCH5DdJo 37) CTKkb7jog1OhgJJjeKFv UQiyfDMrfbXssi78rLY1 xF62WF2iTQEzAsN6YVHd kdC3Lqt6RQWlBHVghFBr H374u4wmn3vdfqIvlWW2 NLPlEFXlJ0McFK2sWMRe sJAcE63ytMFyIUB0LGYw YOIacMRmTCZnWJH4MFXh wIDbR6fsVSPzFY3qiexi JXgzKJdtVOPfjXW4RHZq dQJqZ9WfVQOwFXpmXBAs grf9LyUgCj8maJGzsOue MFxwYXJkXHBsYWluXGZz YfVzCDMkpCFuo90naPOw YXRlcmlhbCByZWNlaXZl SORhhlIwPP3kQzMbTeCp QQ49pUDfTZGeTVIgRHJp qC7sHmbgCCDhBYJaVXpS OsCaMJOsK6IrIGiuIVMN HuduNXIBUJ5DFgkeZFKX CsnpM83zyASlrQIbHZ2h LFC4JjDnChHkIxBwMNsq ZORgnNNfAH6nQDPmKZk3 qB7uMIaup5R3TRipd9sb vCFeCOGzCZMgu1UnAXZe CJCju5AiKCgkhWNknXVg xSK4wS2yQEIixCXlinAf xW1dvRWrR7LxPxzkNLO3 Diagnosis (test code = b1ljgPUkULMuqLF9JrWj 34) RDBng6gfi7ZtxRCfiVXo WKhcpKHfvmIqzg01pHV0 tG29VP1sXIVjNpI0VKTb hhO7Baa6OHYbURLxpTUq M720o6fkf6ypjoQtnNJ9 NQAhDTDpM5PmAN2kKLUb aBCoQ66woHIqOQX3WUVl QTKyjDYiIGEyRVJ1URMx sNJdP9dpCSHpOH0qhsbe NKtoXYcjPOPtdLH6LKUy mKVaS5ItQNYsOForFIJd qer0LnHwJk1zxLZzyQml MFxwYXJkXHBsYWluXGZz SvTiH8SuVM76kORuRYMl GIUgSioQRKK6CLzhHlUM SwsmXOFLMK1SR1OaNMJm AJEBJNPhp6daSBG3VLWr z90pFY5iYpJhWeHhWbsv WFPxA3IxDJMphujyfObt OXuosG50WdJhQPQkpUNx om6rvjwil93qgLA7aAIw aRFvH47mOXKxiB1ew4mg cyAoMnggSCZFKTpccGFy BZwrReQ6OHmuxJ95NeGb hQyxUhP8ZDNTHJgROOMF FVHEMKVQVW0VMoRNFFhW SIALQTZKNMTXA7aJLlCP JKKSM79qE0gMWOBlQ9gC XLEdH7IKDQEENSATY0TM XGmTRz6IAsbDKwNMQLEU Lf6FT50BRWJTHFSFOZHI O9HNSJiyXLFRY3VCDFHG VCBUSVNTVUUgRURHRVNc eSHaVHSyIXHyp21lXS93 XHBhcn0= Comment (test code = m0hrzACqYBLbzBL7QcJl 9835) HBDrj3jhv8HtrPNaaPFt OWwysDZqoaKvgt55yVL4 cY23OQ6rKYCuBzE0MENx quO3Exm6MKTwSBHnaCJh U150x7njv4fljeSbsWU4 dLixWVEftwpgPzS2ICrt MYDdarjyZBz2GRfiHJNc vMJ1GBMuqGCrE4SpWYPf RM1cyic5FMK8ZDixXJSi NvO6SLWyiLAwABVemQib TBjki141ENT4JpNkTAMa jjKenLkrsK7nCkOcYTYR tTHdF9WkFZU7ELUbtHSc itQaPDGgNXDogH2eFOWa uDB6z9QwhEgauM6glIEx EYL2xL9iPSEuc17jA3Gg v6SycMbqbcGozjIDCK0y HLfeHrQbUl2ygQTtVBQa yCJcHKEzLQQeP6Uvk35k YPAyjH7qa9FnURVkZTDi KCpeHI17azGlPlSesKon kHJmzIIlrLWkyP84bbAi rWn3oJNugAEiMDbmjOqr P4ufHOWfC4NxbFNjdATh T0XgPSrzrq4wtndkPbUj yJQur6Iqwb5iP6ZhjrMd lNojk1OqZwYZjjLlJWEr Z8zyfuxvNTxjsVngoRBm IXFxmzEPtVeuZLL8lDDp pTW5aNGuxHUnFRVyMDFk BVTxXCXoeV7xwMd8yKDt eKJtyV0dPDeaNKTgAXZl bcw8qI7acBXxagYtYnJH cFMbLLK4uAygLLG9Uf7e dHRlZCBzbWFsbCBmcmFn bWVudGVkIHNwZWNpbWVu HF6mkREcf9QvQwNowwXq rsMzFV24HUQggiQid7Sw dGhlIGVudGlyZSBsZXNp g72qOZKxodfaFFNrFRLl Y9vynjdvAJczcBYspqMe C8Z5VDCfBUTiPNAxXPu7 oY5fHDxnEauixWA9LSvr A8f8WQpgOrUhmAHwsP2e sJvivaCkSzOvFX8nuHlr YHP8KIJ1gWX2HOWuciPQ CDAaj4XzcVMpDU3lRXKs WFRtPTBlp02ifDXvveOc b36gQR1iSIOoMMvqZJRx jCHhYINogrHnzDB1sK8m KUqecLxbW6qxoxnjVHff t7G8NHwmNS1nUGVdv3Db qVKla3Sid6Jma8WsxJAi yAWfmFCjkA5svnZcUSIi aXfpqqZjcyQ3p49qBdHl g0SfoJwrcgDdgtOcZYPe a4KrdolkWAhsFKTpzIIn GRUruDOnE3NhOTZ2ARYa w5M7DCplMTHqivNyWLvl I5Hgj4BsKOL8OOBcOJUd CSBmYEAdgZD5xI1mj2t9 RKCyH8PskOntF75xTkJq DQ0uRO5lHHkuCCU7 Die Finisher(s) (test code n9lawOAhUPNumSJ2HpEl = 9863) MTSxp9tgg1LwbDSzlJOr LUgpcVFnpeEtqg25kXQ4 eH32EL2tTPSoEsP5NQUa riY5Uta5CRDyDIZtqAOe H238a9wac7lknlLjnKI2 tIzgZZXccxrmLfP2ZZrv AKGppmqmUWy6QCtsCZJf cVK6ALZfcSLyY0DsDTGd DH6krrz1LGO7XLwmTDBy NaD7SYNvhDCqULCqeJym MDwox038CZJ6MxFnBBAd raXjiNxrsQ5lOeKzEZAW A6LxRSWNUTgjZybDZZPZ OsteJ5OIBEQjco8= Disclaimer (test code = j5htfUQrSBOwoKGaBvFo 9844) RJWyGAFuv2qqCGWwzEJi ZzEwMzNcZnRuYmpcdWMx YSQeKeOjq5dmv417aSPr l5vbEGDoPjK7hFCtHNVo oOItZ190AMTtUQytj4tv y7AeDXGniDZof4P8XBEO ygirhJv4hWvxZ57ap0M1 YnvtK9njCAOdKMLvK1Op MV8bCLDpFrl1OQQ9EYR8 FJDlSJSsW4WjTI2dFYMt oDGnZGd1k0kbtFdiKPPs VKS5u2tqSCuthaUrAW9g mb7miXo4e8qfvjSnEXNx FSEwnHWOILWpH2PyjPgx Cz6fbEl1eClmSgznTCF9 Jdl5MQ3bda98qvh8aFwk XTTwgtpnSiD2LVsqTANw qegqPOj3QItfVTFfiSQ9 YTOhzUUxE6ZuJLSaBO3a oze2JMV8NXnyKUXhUqX1 NDBcaGVhZGVyeTcyMFxm f309EGW9HyNdEE4nS0Nr l9N6mO0otZArFDBvqJMn YiBuMETfxt2bnPKpNBuf x3BdZWC5edD9tPVspQLr FTVeWC13Shsry4YmEijb JWL0NDAqcmPnu1Sjr1gm GxJmfsOfF5ofW3ZsCPMx MYFaGSJmTaXwxgWgj4Nk o3MxuGRfnPe7x3rnEJGx ECPoiYlit1wrPLB2WGPf V4F0tUZha4dvUIqeADVl dUL6rgL6JVCfnZRvC6Tr eI8uCJHrLL1bspa2i8oo UGV0YMiyBCDaTyT5trL3 NDBcaGVhZGVyeTcyMFxm m114BPQ2EhRmAATak6Fi U4YzxMjlH12yqUktY60x DKSfxKwyuD9ddPlvuM4x ZjBcZnMyNFxxbFxwbGFp qincOZjiumX1KSyisfhw ODFzPTwxX0puUsYyNNRt iAitNOloi2WbQSZfBNEw WpqerxA5LGHGi58aJFKx t1PhQDOfsS0qnPYaXZxj smSrdIN6VWjrieUmHlZc itCaCMPmbD8zEEStZQ4o GQGydyBnft8zvkFzCXAh CGZzL4XumtvxdVyosgGx XEKwyf6sugHcJKV5CWXS GB5NTCVcTJHyh21xKGJd wPnjhJ8niIFacgVgEDNe n5SqwF2rnKBPXBVcP6op EE2qTZigj7FheJPqqXHb gVG1TOEgq3LdZoCeihAw dDKvnGLrU4NxgKpfD8oy QUUrIRZycpUqcCJvo7Rw MRUoyDQ2jVMqZF3YAuNF x20aPRJaCCCGvwHdJVWu cQnslLK8pkI5mW4vHvRE ZiBhcHBsaWNhYmxlLCBj i445vf6ukhT5IIDwVUDc fzbgu5QeZBFsKQIovG10 JVIcUPWlye3tiasdsBZh qeEyO1Qyllq9iN3nZANq YWluXGYxXGZzMjJcbGFu ZzEwMzNcaGljaFxmMVxk UyPdGLIqWGaeN0byKxQz ZnMyMlxwYXJ9 MD [facility] Leonusq7594-03-42 20:51:57 Test Item Value Reference Range Interpretation Comments Final Report (test No growth code = 8488) Path Review - Immunity and antibiotic Bottle/Isolator use may render culture (test code = 8499) negative. Ongoing infection requires repeat culture. The results have been reviewed and electronically signed by Pathologist:Tash Bui MD, PhD #[id number] MD [facility] Fctpfbiahiunlr1731-23-56 15:54:43 Test Item Value Reference Range Interpretation Comments Submitted Clinical History z4xhaXZpRHVrn1ioPKC (test code = 96268) mbGFuZzEwMzNcZnRuYm pcdWMxIHtccnRmMVxzc 4CzF2LpDcTkZHwmkxBb XGRlZmxhbmcxMDMzXGZ 0bmJqXHVjMVxkZWZmMH waWl9xnFLfhSmhToIcZ MSye0ybicNOsghllSa8 f3nyIRGnXrD0uNUgWUm sY3cablKwvMTpJVVgFW h8vI71RIFcfI5nhQIhD QsgzkXeWzU7NUimIXSs CrY5QKPueDXaFGMhJ3h yZWQwXGdyZWVuMFxibH ZdKNJ2wCheh5M2qQRdr GVldHtcZjBcZnMyMiBO b9EkJVh3aHebA8DsWDI gWpS5kAFmBIUkUUoaDO QqTVPdouI2xK48HWkgb sH5kUJef8Yiy67ea276 pG8nvZCeRRD1JXHpPYM eaUWjMCDwFYK2JJIwbI GoO5seSFMeIY1vbxcqP XvaGSfxUYBrsKV5QBXr fGGwS9YiFPSyAMldXSL yfkm7HkWfEm4cyFRglC pvHGmcy8pet4aeuMQpO eq9HRRyOkWzAyskSZok q9Fkz5gkEGApqw1bDSR 2yJHluGgue2Q5tAKhCH IjnFEemeTmEOFsLhU1D SleRE8hom81MYRrUJT7 lu8tsPKonZgoqnQftKW oDKyyO2SaTWSvf150OU EbA3ErHXEjg5Q8ewYeS sSoRLOpzJE1gsF8UQQp LHp8yKGsohW9xpEkgWQ fE7vfxP1vCDAuAR3bcl tqc4jbUBqrWMmjDTSpd QF5kvA8VMBdgVWpJ1Ah sU3uVCOhOKzuJGDfuvb 6JrPmPx1slOOnyLymPY xzYmtwYWdlXHBnbmNvb nRccGduZGVjXHBsYWlu XHBsYWluXGYwXGZzMjR euKzrwVyfoB1qBeHsHn GgWUysOK7dCJLoG1pty FZtUNRcBWDvN1zfXdJb jS9mcVruMDldcfGaBYN iWO0hNCLbaZNhkU8gE4 vta02gLoPhpZ4yVUPfc 6GqJMcQIGUvCR9pmCzj hS5nOyWxOrDkQxfaBO4 uZUBvG0tteHHpXXCoBP YkY8nlWfNfoP9miNblC TfwnyMsFMUkjx63 Diagnosis (test code = 34) u1zlyOQaQXUwuZT8JzQ vMYSmd4lkc0BdlZWoeF PrWHnvdSHokxMzpg92t AE4tF79OC2dCLHqQaB4 AOGquoB4Cfe9XWSxZKN oyNNpN936l2inl4pgcq PxjYN1uNniHYRbuqvuR cI5REztFVPmgzjsWPa1 ESydJQMhaCO8ZYUcwVG sW1PzKOBjLG3ozfp3GK D2JElmGWDgBsM4XZAcg BVeYLCwuOpoHFuer065 AAD7LqLpTHJdswVnhFk riU9rFrCtLSSRKiUkI3 2wg68oCZUcI6VbZJRnq ThdCUQpxS2nf3a1VLub ywHwNJo6JNUlNWMitEv bjmQqYGHbm39wTKvtkd ZsTq1rAUU5x2ZhkxHwC BFhgL7yTK18gOUbhO7e t0p6CDAojaJeICUnJqW BeNLgD1OhVTDokZUubE eulIAeq6b6oYCwpHIgd qubSQDdhXXgCkAibH5l CT8hiSxaFEfujkVcPb2 mPHA8r54tK8ytMMZxgN Z4tVzaQsbukCT1Xfyyd X8yJGPwgGTrAHYzuRIl jXV4sNYeBZ94X67oYYM 8fVMeFLNkFRY6jTTwIT syk9Efq8BqwVi3JHhgj oUuKJf3ZALmEu5kmV84 KGD1iE2dgGOiJFSwjJl ka2knZU6vRMxqCKJ3eS 8bfWGrRMPMQPO3NTkuJ EeaoR1iMDLsQXXObC9p LJMiWRSwIPW9upooJYE gUQboWADgu4BzmEfuxY luZSAgXHRhYiBPeHlud OwnYQ74D64gNNY0iXNw FG1zrGSdD2dkf43zBrB wtzIeeFa8TIQnCMO3bt p8bFZnvEzxAKFcUIQsH mDHucVasaMcn0KailMc DX4ibXZpzPJivIEjy1H zRB6yjVvil5RcFLnCAd Fdy0KkzG5jPFbcwzDdP Y5wMBJoiM2bWKNmh1Jx zcAhreazP53ec16xwI2 jjRLwVHPvs6KxnIshuK luZSAgXHRhYiBMaXBvb WFccGFyfQ== Gross Description (test a2gyvZOuULJolDPQSQi code = [id number]) wMFxhbnNpXHNwbHRwZ3 FlayceKTmcTJ3zSX7ab CixsWYtsZAbCN1KPZGp ZmYxXHBhcGVydzEyMjQ jMPPniGQhfJU6HHLvDX 1hcmdsMTgwMFxtYXJnc nY2BMMlrHPiU3QrGUSu VX2taxqtPPS8LCnqaG6 zqfXQGxgkOh7hjNXzhV tcZjFcZmNoYXJzZXQwX ERpvOpzDRWbMEu2vM1W CylwH95vj2G8Amk1EYK eVMAyS4InWB6zUEScrM EbF90MRashCUH8AGHUN rykHKIxZY9Rq0wyYYWk qIWgAWK6XPzsfXQgFUM iNNIcLAs7GAKmMFzvuS GrHB7jpAbkPgefnShle 2VjdCBcXGlkIDUxMDAy NZkpVYEbQE6KVuFaRLF eDPdxZKRcWVy1STk5JX 8QQgVxCWHfTMn4GuW9U XHoKIq3NZanQB5UWMsg PqN9WTS5QPR8KEIkLzU cXHQgMiBcXGYgQXJpYW wgXFxmcyAxMCBcXGZiI ImvVjpbNKomT74trVjy cJ1kUafrbrNxZIG7YCC hciANClxwbGFpblxlcG ljTmVzdERvYzEgDQpcb HRycGFyXGxpbjBccmlu MCANClxsdHJjaFxiXGN bHSkarfLcYFHelY2tIR LoEXZugWVms6y0pObzA eQwB0EcIEEjNJHxKnLh xHVsLPJjg9K8GYPmsxP nbWVudHMsIDAuMiBjbS KigbMhYX79TLLgGNMtz nRpcmVseSBzdWJtaXR0 WTSgeT9pSLXuWATbnYC gpWUzkOisMzgvrJP7MH kaMzolyN5twNDKVHUCR pkPTfzztaPnDL0LRS2K GiXGFK09RyPpURV4JHc QC5MAgRZ7Euw8OFj9kV tcZmxkcnNsdCBcJzFDf U3PWIkmCuxjdOK2JFhp SfeakQ1bhYYPATVUVoy LPezpkvZcCZ1RRB4BGE 1JxVWgAUC0cLU6EZBVK tpdxLY1lWY2gO11XWDm ASFpaANrMWsuB545ZHI qUYgqHNd8rdSmZCRaFm MfZSfwFSYjC89ff0QLq 1TgPCAeo9nafGpkn8Fv dGVuZFxwYXJccGFyZFx ziX3zUjAsh8fotUx0ER uywpZ7BCHqnw5irThpr T6sTZw7KUrtLJDhE0Gx X0LyIOxtKXC3TOSrQmY cXGRiICBPVlIgIiBDMz F5YNJ7YlL1CIp5MQAOY nEgAfDcHVI4OYY9XGbx HPd5IFl4LJnACbB9SYQ zKEX6FzAyTJD0WsAuJU d3ETKbOTlhIRXqaLGqX FxcZnMgMTAgXFxmYiBc CNOgYSlmcdV4UDNoNPl uXGJcZnMyMCBCOlxwYX VqCBozaGjkrI4hJGFbH 13fz1VCt0DwLL5TPHj3 qkVnyplpaN0uUWCtllT bJTpyyYYuN3aaYiwvYl LpDwXoWKTTvQ4cKI95j BdhBZMtCNYsqL71REPx XGNmMCAgTXVsdGlwbGU ve09ruIN2KB8qkHlhl5 XiYTQtWKglAI50yokgR H7dBKPdJO0pTF24BTIe LCBlbnRpcmVseSBzdWJ fiWY2UFLalV6nQfGmGZ BccHJvdGVjdHtcZmllb SX1TToaXyfcrI9xjUZG WVBFUkxJTksgbmFtZT1 GFF5LRrBTHO20AxXoLD D6GXkEM1DDwCF7Ypa0C Wc8eHhfFlpxiuDtbIUd DkFYiB6OYYyoUnkepVC 6EIgbIwqnxS0qoCXZBG DFReoBQlbwzjBmZK7PJ N5BOP8CrLVlAPM1aPB3 VOILMxgebWT3aXM1hF0 5NBArGLMfyHVjRVhnQ2 45EHYpLVuqRZo9biYyS ZSwQuMcZGpiYBLzW72i p7ITx0QjJXVsh0hqdPb ln3TpgRQwXGzpCFKsyB YlDOozhV1cIrYtv5upb Ba3YRdlnzP8JZOgap9i zPvaqD9uPIx0VWguQQT nS2UlT3TzGUbmHLQ9YU AwMiBcXGRiICBPVlIgI bHHZnB5QLO1RqU2MEd6 SRIEUuIjJmVcSTO2MZA 3XsEnJQe5KCu2LXjMHs Q6FBTdGFT7HTxpBGT4W oRxQTb5NAYnIPbhFRVu aWFsIFxcZnMgMTAgXFx nVzTyDGIlEIqbkcS0VQ BsYWluXGJcZnMyMCBDO dsjYSYsUPulbDgnvU2f HPWjX40yl0DRi4LuTN3 AGIf2ezHtjzygvL7uXL TsinZuEGezeGExK7kxW dpyDeVwIuAhHTSDpI4y UZRmEWFiurApxE52QAB wXGNmMCAgTXVsdGlwbG Dwr97gcRY1BF2ecVwfi 9RoMUSmXEhqJM03nhtl ZS3aGBNbYO2jYN79BIJ tLCBlbnRpcmVseSBzdW MjbOD9UPGivD0bFgItF CBccHJvdGVjdHtcZmll mKH4HGgyGtfagF2ajSG IWVBFUkxJTksgbmFtZT 2HSG5KIvMELL59MdWbU XE0LTyCM6DCpHT7Jxq9 POr4uTjcGpbbjpVirZR qRmJEtD3OKMwuNitykP D1VUtdEewkxG6jpTAYZ GVRYpaYDigienBdKL3O NH4DTW8LcLEhLUP2gVO 4PLQNQjfixUH5yLK8pT 17XGZsZHJzbHQgXCcxQ 643ZRKeBCjiNYq3wzBt ZSCuOgHdCTacRMHkV25 yy7XFa5TeXKBdg0donD dnf5FvgPZnRXpvLQCnz WThJKpijP6qAdGat8jx pZd4CEteffH0ZZThkh5 igXlflA0tPSr6YJveBC MrL4YpG9TbXYleLKP0C TAwMiBcXGRiICBPVlIg WtQINaM4ADC2FrD0BHb 6MCSMKyBxPdLaOUC0HW K2HnPuODu5AXl5TBtHU bI4WOBkHMe8AMJuAPI2 NiLkZCc6VFWeFWueSML yaWFsIFxcZnMgMTAgXF waIpYnLCRoKVoohsO8V HBsYWluXGJcZnMyMCBE OlxwYXIgDQpccGxhaW5 vSLKsT20rk5CAb9EjEF 7CJIq1kuHyjswahJ7oT EOjogYrVCnfyMWsE3ox YlxjZjFcZnMyMCBTdG9 cYGIlLLRzQWC4pbwpZO ZgTCc3BMLrUEBtCAQjY DLpwKdiqBWxn57hyHN5 KT4mrLtru0FaBJQgFYd xDD80vnppZO3pEIDxDO 3mMU0lQXLwQWQtkyThr pZygQEtqPTscOW7AJXa dG0wVMWnOVDzzUGqnTE jrVvvYugovRN8BWyrQx fluC1rfZPVSNSQPpuME tqdubAnHN8ERN8FCyZB GH68FiQsGUP5MObNJ7V SxPG8Ohl1AFc0bOdiDp zzwbPsbPPrBxXZcL2UE ZauOotsfGW9NXjnYico rK3elOSFVHARZbeLVon kifTaPO4UGJ9KTI5MiP EfNSS5eII1MEIUDoyoz GG1sUJ1oS27WBLcLSFv iXIpHBufA770WOUxNJm xOJc5pyGzWLGoGdHxFT svTWXeG45wr6FVy6KeS AMlp8iicDuzj3EnzMYx ZFxwYXJccGFyZFxzbC0 uUpSpr7hefMc3QVqctw G5JEZpqz8jnRcaeQ1qA Ma2QHrmAFHaB5CsY0Cv ARknKMK3AOLeSxLbGSN eBJYWGhXsOlOPNsB6FW E4NhT2ZIs9STOSUiAgY oUrMGI2ZZD8OyHsXOa5 EMb5XAaCVzX7QBRyROq lTVVmWLH8HdHiDYm9GV IgXFxmIEFyaWFsIFxcZ nMgMTAgXFxmYiBcXGZs VFayajP1LOMtXVcgINS cZnMyMCBFOlxwYXIgDQ jcqLigbG9iMKWpB96jm 8YNx7LqPX4PHGh4pvFe wssmrV5pRZBsokJxEUl qoHHdG4sbDkvyAfYvTn FiCEYZr7hdzxiuDONmN W2iyV4dSJYiaR9uOPYg gBRxHBHjCZTyfEzgq93 uVGlyGuZfZ8AtCYQbFB UuWWOvk0RacJsbzD0oP WQgbGlnaHQgdGFuIHRp g9X0HPOctlKvsNQxdWF sIDAuMSBjbSBhbmQgMC 4jKIKtzHbkTN32nFYvf Paqt9TinTh6tFGqWDgo VGZwNaLsFVHnz5TdS9Q 0TPUgACfkk5yeJBUxVA cln0VhGAcUIBEZRC1ZF O9ynVL1DFgLV2DFD1fI mYDgBIN0aSN7ADYEUju kjPO8xFO4hZ15SHZnGQ IxkURkKAweG716OFE2W OMsNOswe0uiVERsDUpp k3GjHZeJMWWRDD4TEV1 tyDM2CXpGC4QPYVfrQY LqXxputVTWDDM9PIxlx TezvCo7i5psaCRxb3d8 JAfjCIM0rNjwdFZfytp bbZBquIjuptRdAZ7LWU RorWKXGHK2DD7zXUl3N VxmEUVnZ8CgP2KeygOz sETxEQXpbxFec8riXRA 1XHNsbXVsdDBcZnMxNl gyWZT4KNWiMUsdMU1CS CAaFQT8HTuncF68dDMu QF3EBRUoWLepPWBsKCE mmcH0NBGgxQFvNFH8NA 0niBgigPVwjgnmkxX6N A0KfQ== Disclaimer (test code = i8lutYFaHUZujNPsZrJ 9844) tWVBeGDMij1apGJOqvR FuZzEwMzNcZnRuYmpcd TRdQLVrKoNyq5bxm776 nFVaa6omXMYoAiM1uPB bCRHzoXOjS698KQKvFV kzu9yjo5RcEMTneNSvh 8D8QOKIxiuyyRw4iRli H50tr4K9HklbS9dnMYO uRTDeH9AoSX1kUOIjKl v1JVX3GXO9CLWgFYZjC 3DqUF7pTXLrgNWqLGh7 s9vpzYqyWEIpYAE2t8b nVNlwlgLdPJ8sds5xxV o3f2bpqtGdXHXnNPXzx XEUTWFwJ3AlsNbqIh8i uEq4gHwaNrkdWXA6Cdu 5DF0hrs13lfi8rCadOY OglcbfVfF7DBijIEFge yshNQk0KDioQJZtdWH2 AXMggXTgC3NgISDvOJ8 ioxr0HAV9HWzxHCYaWq S6CRCgnNVuQERlfBgiD Hxse918CEQ5GpJwFM6z M7Gjs4E6yP0wxPQqEJU fyVXyVgHmLROgdv1aaQ PwHEeyc6FuNBY6hoA2j NTtsOLsTVDjSO58Kcyt r3DdYkuoNON7CNEfpzA fo1Kab0jhPfHzeuZyR6 stL6ZmHJVrNJWqSJRlX rEzybTzi0Hvh7KpoQXj hJi9h1gvVVKvZFShdQm ft4iqMYE1FEAuU0T6yX Ytq2dbHTstHUQrlBB7m sW1EJUwzZRdF0DkpO3h VQXlCU3ftbc7i0muIBK 8AKdeHZWsQfB2dyV6NC BcaGVhZGVyeTcyMFxmb 362NBU4WgCiHXYif4Da K4FhoTnaE81crCnrG81 rFDRpiSkomO8hwYxuaD 5cZjBcZnMyNFxxbFxwb ANzyyimPFoznoS8ILqn nqsbNHYwJRhzA9jdBtP cHSRdjFdvOBoyy7LzSK FkWMMgGtijocQ5WGUPx 44pMSRmh9QoGKRnpS6h kSCwEOapvsZasZA5FOf hdmUgYmVlbiBkZXZlbG 4kJNTkMG3iWGWathSvk h0dwsVfHVIfFERaT2Gn cmlzdGljcyBkZXRlcm1 alsIzMMV0FOMKHG5DSV JnLIAkc98eEYXjpSihr A1bdEPxwcFqPJKvu6Qi dN3hkRXQEEIiM3rjTW8 uLGmuz7UstYEhuUXbqA J3IYDax9EnCeVuvfUnh RVruIVbC7UscIlbP2tp QAAeZOPrtqDgvBVuw2O iPGHrwVB1cQAlFG2PPe QFf40hPKKcAUEIhtTbZ YIxlWjkrDF7rvI3qY4r LiBJZiBhcHBsaWNhYmx gZBDfz945cl4pqqQ2FZ TwWAHdpnlbo0JkKYQtM ULenF47FNOcZAQsma6i mqvzxGAqhyIcT2Ptwtu 3eE9eCJNwFWkjAXDoRK ZzMjJcbGFuZzEwMzNca GljaFxmMVxkYmNoXGYx AOreP0jzRsWeRfOhAme wYXJ9 MD CortezXjiaaujvNlwxyytcumyj2160-37-74 13:57:56 Test Item Value Reference Range Interpretation Comments Neutrophil % (test code = 64.0 % 42.0-66.0 31103-7) Lymphocyte % (test code = 24.9 % 24.0-44.0 737-7) Monocyte % (test code = 7.0 % 2.0-7.0 744-3) Eosinophil % (test code = 2.6 % 1.0-4.0 713-8) Basophil % (test code = 0.8 % 0.0-1.0 707-0) IGRE % (test code = 0.7 % 0.0-0.4 H IGRE % c ount 57329-1) includes Metamyelocytes, Myelocytes, and Promyelocytes. Neutrophil Abs (test code 7.60 K/uL 1.70-7.30 H = 753-4) Lymphocyte Abs (test code 2.96 K/uL 1.00-4.80 = 732-8) Monocyte Abs (test code = 0.83 K/uL 0.08-0.70 H 743-5) Eosinophil Abs (test code 0.31 K/uL 0.04-0.40 = 712-0) Basophil Abs (test code = 0.10 K/uL 0.00-0.10 705-4) IG Abs (test code = 0.08 K/uL 0.00-0.04 H 21992-1) Lab Interpretation (test Abnormal code = 64091-6) MD Cortez.HZS0523-74-98 13:57:51 Test Item Value Reference Range Interpretation Comments WBC (test code = 11.9 K/uL 4.0-11.0 H 6690-2) RBC (test code = 789-8) 4.60 See_Comment [Au tomated message] The system [employer] generated this result transmitted ref erence range: 4.50 - 6 .00 M/uL. The refer ence range was not u sed to interpret this result as normal/abnor mal. Hgb (test code = 718-7) 9.1 See_Comment L [Au tomated message] The system [employer] generated this result transmitted ref erence range: [...] L [Automate d message] 786-4) The system [employer] generated this result transmitted ref erence range: 31.0 - 3 6.0 gm/dL. The refe rence range was not u sed to interpret this result as normal/abnor mal. RDW-SD (test code = 61.8 fL 35.1-46.3 H 30319-5) RDW-CV (test code = 27.2 % 12.0-15.5 [...] . Lab Interpretation Abnormal (test code = 24357-2) MD CortezElectrolyte Imsvx5336-45-20 13:38:24 Test Item Value Reference Range Interpretation Comments Sodium Lvl (test code = 136 See_Comment [Au tomated message] The 7337) system which ge nerated this result tra [...] = 99 See_Comment [Auto mated message] The 5279) system which ge nerated this result tra [...] = 12 See_Comment [Aut omated message] The 9380) system which ge nerated this result tra nsmitted reference range : 4 - 14 mEq/L. The refe rence range was not u sed to interpret this result as normal/abnormal . MD CortezPhosphorus Pxifi1617-28-54 13:38:23 Test Item Value Reference Range Interpretation Comments Phosphorus (test code = 6817) 3.8 mg/dL 2.5-4.5 MD CortezCalcium Llrwx0131-58-47 13:38:22 Test Item Value Reference Range Interpretation Comments Calcium Lvl (test code = 5258) 9.6 mg/dL 8.4-10.2 MD CortezGlomerular Filtration Cvok8600-66-64 13:38:21 Test Item Value Reference Range Interpretation [...] failure <15 [Automa annita message] The system [employer] generated this result tra nsmitted reference range [...] failure <15 [Automa annita message] The system [employer] generated this result tra nsmitted reference range : >=60 mL/min/1.73 sq. m. The reference range was not used to interpret th is result as normal/abnormal . MD CortezMagnesium Byavn7567-59-92 13:38:19 Test Item Value Reference Range Interpretation Comments Magnesium (test code = 6359) 1.9 mg/dL 1.6-2.6 MD CortezGlucose Zpvda5045-23-77 13:38:18 Test Item Value Reference Range Interpretation [...] diabetes Lab Interpretation (test Abnormal code = 93180-4) MD Cortez.Serum Dcdkpiolot2208-36-84 13:38:17 Test Item Value Reference Range Interpretation Comments Creatinine (test code = 5399) 0.86 mg/dL 0.67-1.17 MD CortezFvnujnrwPVJ1234-43-41 13:38:16 Test Item Value Reference Range Interpretation Comments BUN (test code = 5055) 12 mg/dL 6-23 MD CortezUrine Jpormjk6889-93-44 00:39:58 Test Item Value Reference Range Interpretation Comments Final Report (test No growth code = 8488) Path Review - Urine The results have been (test code = 8483) reviewed and electronically signed by Pathologist:SHEILA MEIER MD #[id number] [facility] Glucose Lsmaff0382-11-54 21:31:50 Test Item Value Reference Interpretation Comments Range POC Glucose (test 107 mg/dL 70-99 H RN Notifie dCapillary code = 92368-4) blood sample s, e.g. obtained by fingerstick, [...] Capillary code = 9554) Performing Lab (test [facility] code = 31773) [facility] MD Maryan [facility], [address] [place] [address] 770 30; Manifold Operator: Graciela Carpio MD Lab Interpretation Abnormal (test code = 17519-9) MD CortezKcexzmcfAOM1301-01-04 11:24:17 Test Item Value Reference Range Interpretation Comments TSH (test code = 2.73 See_Comment [Automated message] The 7051) system which ge nerated this result transmit annita reference range : 0.27 - 4.20 mcunit/mL. The reference range was not used to interpr et this result as anthony l/abnormal. MD Salbador Workman Core Total Zqvhelxu5575-84-24 18:41:38 Test Item Value Reference Range Interpretation Comments HBc Total Ab-[facility] Negative Negative Test Perf ormed by:[facility] (test code = [facility] - 24327-7) [place] [facility] Irnhb0491 [facility] [employer] [place], [place] [address]Wsb Director: Cb Westbrook M.D. Ph. D.; CLIA# [id number] MD Siu B Surface [id number] 18:41:37 Test Item Value Reference Range Interpretation Comments Hep Bs Ab-Fagan Positive Patient is co nsidered to (test code = be immune to in fection 20447-5) with HBV. ----REFEREN CE VALUE -----Unvaccinat ed: NegativeVaccina annita: Positive Hep Bs Ab Qn-Verona 42.1 mIU/mL --------- REFERE (test code = MDE 5193-8) VALUE -----Unvaccinat ed: <5.0Vaccinated: >=12.0 Test Performed by:[facility] [employer] [id number] [employer] [place], [place] [address]Vlh Director: Cb Westbrook M.D. Ph. D.; CLIA# [id number] MD Siu B Surface Ag w/[id number] 18:24:04 Test Item Value Reference Range Interpretation Comments Hep Bs Ag-Verona Negative Negative Test Perform ed by:Verona (test code = [facility] - 5196-1) [place] [employer] [id number] [employer] [place], [place] [address]Xwb Director: Cb Westbrook M.D. Ph. D.; CLIA# [id number] MD Watkins RBC:G1049, 2 Yhvxs8465-05-48 03:51:43 Test Item Value Reference Range Interpretation Comments PRBC Product Ready 2 Red Blood Cells (test code = Available - 48565-4) Order Form 03 when ready for product issue. 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 No 72021Imvamgjm by: CAMACHO SUN MD - evidence of HIV 59212Zivxdfu d Date/Time: infection. If 04.24.2021 21: 42 PM [facility] acute HIV Transcribed Da te/Time: infection is 04.24.2021 21:4 2 PM suspected, CSTElectronical ly Signed consider testing By: CAMACHO SUN MD - for HIV-1 RNA. [address] on 21:42 PM MD Henry HCV Ab Path [id number] 03:41:47 Test Item Value Reference Range Interpretation Comments HCV Ab Path There is NO Interp (test serologic code = 8923) evidence of ____CAMACHO REYES MD - Hepatitis C 00759Jotukfvt b y: CAMACHO virus antibody. ESTEVAN SUN MD - 63708Jqkqyxth D ate/Time: 04.24.2021 21:4 1 PM [employer] Transcribed Da te/Time: 04.24.2021 21:4 1 PM CSTElectronical ly Signed By: CAMACHO REYES MD - 79088 on 04.24 21:41 PM MD Hidalgotis C Virus [id number] 03:06:59 Test Item Value Reference Range Interpretation [...] the results.Perform ed at:[facility] [id number] [place], [place] [address] MD CortezHIV-1/2 Antigen and Antibodies, Fourth Qpxfetwmwq6354-71-85 02:44:10 Test Item Value Reference Range Interpretation Comments HIV 1/2 Ag & Ab, Non Reactive Non Reactive Performed a t: 4th Gen (test code [facility] = 9280) [id number] [place] [address] MD CortezTMP Interpretation [id number] 21:19:44 Test Item Value Reference Range Interpretation Comments TMP XM Interp RBC units (test code = crossmatched for 7566) transfusion appear GABBIE SUN MD acceptable. - 39324Pkxnoowl by: CAMACHO SUN MD - 03437Dagkwlal Date/Time: 03.29 15:19 PM [facility] Transcribed Jung e/Time: 04.24.2021 15:1 9 PM CSTElectronical ly Signed By: MALKA SUN MD - 73619 on 04.24.2021 15:1 9 PM MD CortezVitamin D [id number] 20:32:30 Test Item Value Reference Range Interpretation Comments Vitamin D 25 OH (test 8 ng/mL 30-100 L Refere nce Range: code = 8018) Deficiency: <10 ng/mLInsufficie ncy: 10-29 ng/mLSufficienc y: 30-100 ng/mLPotential toxicity: >10 0 ng/mL Lab Interpretation (test Abnormal code = 58999-1) MD CortezPTH Ubdsjn3457-98-05 20:17:49 Test Item Value Reference Range Interpretation Comments PTH Intact (test code = 6769) 7.2 pg/mL 15.0-65.0 L Lab Interpretation (test code = Abnormal 37734-0) MD CortezCalcium Ionized, [id number] 19:05:20 Test Item Value Reference Range Interpretation Comments V Ion Ca (test code = 12670-7) 1.39 mmol/L 1.15-1.29 H Lab Interpretation (test code = Abnormal 02686-3) MD CortezRBC Product Ready for Pick [id number] 18:21:02 Test Item Value Reference Range Interpretation Comments PRBC Product Ready B2 Blood Bank Product is ready for for 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 MD CortezTMP Interpretation Antibody Screen [id number] 11:42:15 Test Item Value Reference Range Interpretation Comments TMP Auto Neg At the present ABSC Interp time, patient (test code = plasma shows no ____CAMACHO SUN MD - 7535) evidence of RBC 84366Pyveevv d by: CAMACHO alloantibodies. MD Gaby LARA 83754Ugomsyfg D ate/Time: 04.24.2021 5:42 [address] [facility] Transcribed Jung e/Time: 04.24.2021 5:42 AM CSTElectronical ly Signed By: MD Gaby JIANG [id number] on 04.24 5:42 AM C MD CortezConfirm [id number] 09:02:13 Test Item Value Reference Range Interpretation Comments ABORh Confirm. (test code = 882-1) A POS MD CortezAntibody [id number] 09:02:06 Test Item Value Reference Range Interpretation Comments ABSC. (test code = 890-4) Negative ABSC MD CortezMjhltfhnWTZBq1677-20-05 09:02:05 Test Item Value Reference Range Interpretation Comments ABORh. (test code = 882-1) A POS MD CortezClot Expiration [id number] 09:01:53 Test Item Value Reference Range Interpretation Comments T & S Expiration (test code = 04/26/2021 5318) MD CortezFerritin Grigb2045-45-57 03:08:36 Test Item Value Reference Range Interpretation Comments Ferritin Lvl (test code = 5608) 21 ng/mL 30-400 L Lab Interpretation (test code = Abnormal 77669-0) MD CortezTransferrin with [id number] 03:03:17 Test Item Value Reference Range Interpretation Comments Transferrin (test code 225 mg/dL 200-360 = 7653) TIBC (test code = 315 See_Comment [Automate d message] 2739) The system Class Messenger generated this result transmitted ref erence range: 250 - 45 0 mcg/dL. The ref erence range was not u sed to interpret this result as normal/abnor mal. MD CortezIron [id number] 03:03:16 Test Item Value Reference Range Interpretation Comments Iron (test code = 6066) 14 See_Comment L [Au tomated message] The system Class Messenger generated this result transmitted ref erence range: 59 - 158 mcg/dL. The ref erence range was not u sed to interpret this result as normal/abnor mal. Lab Interpretation (test Abnormal code = 07503-9) MD CortezHemoglobin [id number] 02:54:26 Test Item Value Reference Range Interpretation Comments A1C (test code = 4632) 5.8 % 4.3-5.6 H HbA1c values >=6.5% are diagnostic of diabetes mellitus.Diagno sis should be confi rmed by repeat testing.Therape utic Action suggeste d: >8.0% HbA1c; Go al oftherapy: <7.0 % HbA1c Lab Interpretation (test Abnormal code = 83774-1) MD Siu B Surface [id number] 01:20:34 Test Item Value Reference Range Interpretation Comments HBsAg Received (test See Note HBsAg w as sent to a code = 32214) reference lab for testing. Expec t results on Hepa titis B Surface Antigen w/ Confirm within 96 hours. MD Siu B Total Ig Core Ab (SCREENING) (anti-HBc total Ig; HBcAb total Ig)2021-04-24 01:20:33 Test Item Value Reference Range Interpretation Comments HBcAb Received (test See Note HBcAb w as sent to a code = 39869) reference lab for testing. Expec t results on Hepa titis B Core Total Ab w ithin 96 hours. MD CortezCOVIGuzman-19 (SARS-CoV-2)Xlgicagbudus-JB5078-85-27 23:52:48 Test Item Value Reference Range Interpretation Comments COVID19 Not Detected Not Detected (SARS-CoV-2) (test code = 19520-6) COVID19 SARS Inpatient Indication (test Admission code = 53951) Covid 19 Comment See Note The [place] S ARS-CoV-2 (test code = [place] [address]) use on the afshin s Heather System [...] sheet for patie nts provided by the medical aide ([employer]) can be rev iewed at: https://www.fda .gov/m edia/380045/raphael nload. A fact sheet fo Health Care pro viders is provided by the medical aide ([employer]) and can be reviewed at: https://www.[employer] .gov/m edia/576848/raphael nload Results must be interpreted wit hin [...] high-comple xity tests. The Microbiology Laboratory at [facility] [place], CLIA Accreditation #[id number] and CAP Accreditation #[id number], verif ied the performance characteristics of this assay. Int ernal controls are us ed to monitor all sta ges of the test proces s. MD CortezProthrombin Time with [id number] 23:16:05 Test Item Value Reference Range Interpretation [...] Verified Lab Interpretation (test Abnormal code = 51551-6) MD CortezXortewqqsYQC2237-93-85 23:10:19 Test Item Value Reference Range Interpretation Comments aPTT (test code = 33.8 See_Comment [Automate d message] The 6773) system which ge nerated this result transmit annita reference range : 24.7 - 36.8 second(s). The reference range was not used to interpr et this result as anthony l/abnormal. MD CortezUrinalysis with Rutjtgxsgxu4578-52-60 23:08:50 Test Item Value Reference Interpretation Comments [...] implementation of new instrumentation in the [facility], allowing greater sensitivity of measurement. Urinalysis results reported by the [facility] using existing instrumentation, as well as Urinalysis testing performed manually or by backup methodology at the [facility] will remain relatively unchanged. New reporting parameters and units will now be reported for all campuses. Lab Interpretation Abnormal (test code = 37033-0) MD CortezFractionated [id number] 22:50:22 Test Item Value Reference Range Interpretation [...] 28 g/L. [Automate d message] The system Class Messenger generated this result transmitted ref erence range: [...] are outside rep ortable range MD CortezAlbumin [id number] 22:50:19 Test Item Value Reference Range Interpretation Comments Albumin Lvl (test code = 2.7 See_Comment L [A utomated message] 2173) The system Class Messenger generated this result transmitted ref erence range: 3.5 - 5. 2 gm/dL. The refe rence range was not u sed to interpret this result as normal/abnor mal. Lab Interpretation (test Abnormal code = 49432-6) MD CortezAspartate Pzmjnanfgkcxlcsz6390-90-79 22:50:18 Test Item Value Reference Range Interpretation Comments AST (test code = 12 U/L See_Comment [Automated message] The 0883) system which ge nerated this result transmit annita reference range : <=40. The reference range was not used to interpr et this result as anthony l/abnormal. MD CortezTotal Vsecdma6415-06-02 22:50:12 Test Item Value Reference Range Interpretation Comments Total Protein (test code = 7649) 7.8 g/dL 6.4-8.3 MD CortezAlkaline [id number] 22:50:10 Test Item Value Reference Range Interpretation Comments Alk Phos (test code = 4768) 100 U/L 40-129 MD CortezNvpkrbveDFZ8334-32-58 22:50:09 Test Item Value Reference Range Interpretation Comments ALT (test code = 7 U/L See_Comment [Automated message] The 4703) system which ge nerated this result transmit annita reference range : <=41. The reference range was not used to interpr et this result as anthony l/abnormal. MD CortezUrinalysis w/Microscopic if [id number] 22:35:37 Test Item Value Reference Range Interpretation [...] NEG Lab Interpretation (test code = Abnormal 62346-9) MD CortezIpnrivhgIRNVAZ8336-26-16 12:17:00 Test Item Value Reference Range Interpretation Comments GLUBED (test code = 215 mg/dL 74-106 H Performe d by certified GLUBED) video presentation operator at [facility] [id number] 12:17:00 Test Item Value Reference Range Interpretation Comments GLUBED (test code = 213 mg/dL 74-106 H Performe d by certified GLUBED) video presentation operator at [facility] [id number] 12:16:00 Test Item Value Reference Range Interpretation Comments GLUBED (test code = 156 mg/dL 74-106 H Performe d by certified GLUBED) video presentation operator at [facility] [id number] 12:15:00 Test Item Value Reference Range Interpretation Comments GLUBED (test code = 183 mg/dL 74-106 H Performe d by certified GLUBED) video presentation operator at [facility] [id number] 12:15:00 Test Item Value Reference Range Interpretation Comments GLUBED (test code 190 mg/dL 74-106 H Performed by certified = GLUBED) [facility]~ [id number] 12:14:00 Test Item Value Reference Range Interpretation Comments GLUBED (test code 212 mg/dL 74-106 H Performed by certified = GLUBED) [facility]~ [id number] 12:14:00 Test Item Value Reference Range Interpretation Comments GLUBED (test code = 263 mg/dL 74-106 H Performe d by certified GLUBED) video presentation operator at [facility] [id number] 16:11:00 Test Item Value Reference Range Interpretation Comments GLUBED (test code = 189 mg/dL 74-106 H Performe d by certified GLUBED) video presentation operator at [facility] [id number] 10:41:00 Test Item Value Reference Range Interpretation Comments GLUBED (test code = 182 mg/dL 74-106 H Performe d by certified GLUBED) video presentation operator at [facility] [id number] 20:48:00 Test Item Value Reference Range Interpretation Comments GLUBED (test code = 198 mg/dL 74-106 H Performe d by certified GLUBED) video presentation operator at [facility] [id number] 16:01:00 Test Item Value Reference Range Interpretation Comments GLUBED (test code = 177 mg/dL 74-106 H Performe d by certified GLUBED) video presentation operator at [facility] [id number] 11:42:00 Test Item Value Reference Range Interpretation Comments GLUBED (test code = 174 mg/dL 74-106 H Performe d by certified GLUBED) video presentation operator at [facility] CBC W/AUTO [id number] 06:22:00 Test Item Value Reference Range Interpretation [...] SCAN NEEDED (test code = MDIFF) DIFFERENTIAL [id number] 06:22:00 Test Item Value Reference Range Interpretation Comments STAIN ACCEPTABILITY (test STAIN ACCEPTABLE code = STN ACCEPTABLE) MORPHOLOGY COMMENT (test NORMAL code = MOC) PLATELET ESTIMATE (test code ADEQUATE = PLTEST) PLATELET MORPHOLOGY (test NORMAL code = PLTMORPH) BASIC METABOLIC [id number] 05:33:00 Test Item Value Reference Range Interpretation [...] >3 months. [Automated mess age] The system Class Messenger generated this result transmitted ref erence range: >=60. Th e reference range was not used to int erpret this result as normal/abnormal . CREATININE (test code 0.90 mg/dL 0.7-1.3 N = CREAT) BUN/CREATININE RATIO 11.6 10-20 N (test code = BUN/CREA) CALCIUM (test code = 8.5 mg/dL 8.5-10.1 N CA) CBC W/AUTO [id number] 05:01:00 Test Item Value Reference Range Interpretation [...] SCAN NEEDED (test code = MDIFF) DIFFERENTIAL [id number] 05:01:00 Test Item Value Reference Range Interpretation Comments STAIN ACCEPTABILITY (test code = STN ACCEPTABLE) CABOT RINGS (test code = CAB) MORPHOLOGY COMMENT (test code = MOC) PLATELET ESTIMATE (test code = PLTEST) PLATELET MORPHOLOGY (test code = PLTMORPH) CBC W/AUTO [id number] 05:01:00 Test Item Value Reference Range Interpretation [...] SCAN NEEDED (test code = MDIFF) DIFFERENTIAL [id number] 05:01:00 Test Item Value Reference Range Interpretation Comments STAIN ACCEPTABILITY (test code = STN ACCEPTABLE) CABOT RINGS (test code = CAB) MORPHOLOGY COMMENT (test code = MOC) PLATELET ESTIMATE (test code = PLTEST) PLATELET MORPHOLOGY (test code = PLTMORPH) CBC W/AUTO [id number] 05:01:00 Test Item Value Reference Range Interpretation [...] SCAN NEEDED (test code = MDIFF) DIFFERENTIAL [id number] 05:01:00 Test Item Value Reference Range Interpretation Comments STAIN ACCEPTABILITY (test code = STN ACCEPTABLE) MORPHOLOGY COMMENT (test code = MOC) PLATELET ESTIMATE (test code = PLTEST) PLATELET MORPHOLOGY (test code = PLTMORPH) CBC W/AUTO [id number] 05:01:00 Test Item Value Reference Range Interpretation [...] SCAN NEEDED (test code = MDIFF) DIFFERENTIAL [id number] 05:01:00 Test Item Value Reference Range Interpretation Comments STAIN ACCEPTABILITY (test code = STN ACCEPTABLE) CABOT RINGS (test code = CAB) MORPHOLOGY COMMENT (test code = MOC) PLATELET ESTIMATE (test code = PLTEST) PLATELET MORPHOLOGY (test code = PLTMORPH) [id number] 21:00:00 Test Item Value Reference Range Interpretation Comments GLUBED (test code = 211 mg/dL 74-106 H Performe d by certified GLUBED) video presentation operator at [facility] [id number] 16:29:00 Test Item Value Reference Range Interpretation Comments GLUBED (test code = 158 mg/dL 74-106 H Performe d by certified GLUBED) video presentation operator at [facility] [id number] 11:57:00 Test Item Value Reference Range Interpretation Comments GLUBED (test code = 101 mg/dL 74-106 N Performe d by certified GLUBED) video presentation operator at [facility] CBC W/AUTO [id number] 09:46:00 Test Item Value Reference Range Interpretation [...] SCAN NEEDED (test code = MDIFF) DIFFERENTIAL [id number] 09:46:00 Test Item Value Reference Range Interpretation Comments STAIN ACCEPTABILITY (test STAIN ACCEPTABLE code = STN ACCEPTABLE) MORPHOLOGY COMMENT (test NORMAL code = MOC) PLATELET ESTIMATE (test code ADEQUATE = PLTEST) PLATELET MORPHOLOGY (test NORMAL code = PLTMORPH) [id number] 08:20:00 Test Item Value Reference Range Interpretation Comments GLUBED (test code = 257 mg/dL 74-106 H Performe d by certified GLUBED) video presentation operator at [facility] BASIC METABOLIC [id number] 07:03:00 Test Item Value Reference Range Interpretation [...] >3 months. [Automated mess age] The system Class Messenger generated this result transmitted ref erence range: >=60. Th e reference range was not used to int erpret this result as normal/abnormal . CREATININE (test code 0.90 mg/dL 0.7-1.3 N = CREAT) BUN/CREATININE RATIO 11.7 10-20 N (test code = BUN/CREA) CALCIUM (test code = 8.6 mg/dL 8.5-10.1 N CA) CBC W/AUTO [id number] 05:51:00 Test Item Value Reference Range Interpretation [...] SCAN NEEDED (test code = MDIFF) DIFFERENTIAL [id number] 05:51:00 Test Item Value Reference Range Interpretation Comments STAIN ACCEPTABILITY (test code = STN ACCEPTABLE) CABOT RINGS (test code = CAB) MORPHOLOGY COMMENT (test code = MOC) PLATELET ESTIMATE (test code = PLTEST) PLATELET MORPHOLOGY (test code = PLTMORPH) CBC W/AUTO [id number] 05:51:00 Test Item Value Reference Range Interpretation [...] SCAN NEEDED (test code = MDIFF) DIFFERENTIAL [id number] 05:51:00 Test Item Value Reference Range Interpretation Comments STAIN ACCEPTABILITY (test code = STN ACCEPTABLE) CABOT RINGS (test code = CAB) MORPHOLOGY COMMENT (test code = MOC) PLATELET ESTIMATE (test code = PLTEST) PLATELET MORPHOLOGY (test code = PLTMORPH) CBC W/AUTO [id number] 05:51:00 Test Item Value Reference Range Interpretation [...] SCAN NEEDED (test code = MDIFF) DIFFERENTIAL [id number] 05:51:00 Test Item Value Reference Range Interpretation Comments STAIN ACCEPTABILITY (test code = STN ACCEPTABLE) MORPHOLOGY COMMENT (test code = MOC) PLATELET ESTIMATE (test code = PLTEST) PLATELET MORPHOLOGY (test code = PLTMORPH) CBC W/AUTO [id number] 05:51:00 Test Item Value Reference Range Interpretation [...] SCAN NEEDED (test code = MDIFF) DIFFERENTIAL [id number] 05:51:00 Test Item Value Reference Range Interpretation Comments STAIN ACCEPTABILITY (test code = STN ACCEPTABLE) CABOT RINGS (test code = CAB) MORPHOLOGY COMMENT (test code = MOC) PLATELET ESTIMATE (test code = PLTEST) PLATELET MORPHOLOGY (test code = PLTMORPH) [id number] 16:50:00 Test Item Value Reference Range Interpretation Comments GLUBED (test code 215 mg/dL 74-106 H Performed by certified = GLUBED) [facility] [id number] 12:01:00 Test Item Value Reference Range Interpretation Comments GLUBED (test code 187 mg/dL 74-106 H Performed by certified = GLUBED) [facility]~ [id number] 20:23:00 Test Item Value Reference Range Interpretation Comments GLUBED (test code = 232 mg/dL 74-106 H Performe d by certified GLUBED) video presentation operator at [facility] [id number] 16:36:00 Test Item Value Reference Range Interpretation Comments GLUBED (test code = 180 mg/dL 74-106 H Performe d by certified GLUBED) video presentation operator at [facility] [id number] 12:14:00 Test Item Value Reference Range Interpretation Comments GLUBED (test code = 221 mg/dL 74-106 H Performe d by certified GLUBED) video presentation operator at [facility] [id number] 08:41:00 Test Item Value Reference Range Interpretation Comments GLUBED (test code = 228 mg/dL 74-106 H Performe d by certified GLUBED) video presentation operator at [facility] CBC W/AUTO [id number] 06:22:00 Test Item Value Reference Range Interpretation [...] SCAN NEEDED (test code = MDIFF) DIFFERENTIAL [id number] 06:22:00 Test Item Value Reference Range Interpretation Comments STAIN ACCEPTABILITY (test STAIN ACCEPTABLE code = STN ACCEPTABLE) POLYCHROMASIA (test code = 1+ POLC) PLATELET ESTIMATE (test code ADEQUATE = PLTEST) PLATELET MORPHOLOGY (test NORMAL code = PLTMORPH) BASIC METABOLIC [id number] 05:57:00 Test Item Value Reference Range Interpretation [...] >3 months. [Automated mess age] The system Class Messenger generated this result transmitted ref erence range: >=60. Th e reference range was not used to int erpret this result as normal/abnormal . CREATININE (test code 0.80 mg/dL 0.7-1.3 N = CREAT) BUN/CREATININE RATIO 11.9 10-20 N (test code = BUN/CREA) CALCIUM (test code = 8.3 mg/dL 8.5-10.1 L CA) CBC W/AUTO [id number] 05:37:00 Test Item Value Reference Range Interpretation [...] SCAN NEEDED (test code = MDIFF) DIFFERENTIAL [id number] 05:37:00 Test Item Value Reference Range Interpretation Comments STAIN ACCEPTABILITY (test code = STN ACCEPTABLE) CABOT RINGS (test code = CAB) MORPHOLOGY COMMENT (test code = MOC) PLATELET ESTIMATE (test code = PLTEST) PLATELET MORPHOLOGY (test code = PLTMORPH) CBC W/AUTO [id number] 05:37:00 Test Item Value Reference Range Interpretation [...] SCAN NEEDED (test code = MDIFF) DIFFERENTIAL [id number] 05:37:00 Test Item Value Reference Range Interpretation Comments STAIN ACCEPTABILITY (test code = STN ACCEPTABLE) CABOT RINGS (test code = CAB) MORPHOLOGY COMMENT (test code = MOC) PLATELET ESTIMATE (test code = PLTEST) PLATELET MORPHOLOGY (test code = PLTMORPH) CBC W/AUTO [id number] 05:37:00 Test Item Value Reference Range Interpretation [...] SCAN NEEDED (test code = MDIFF) DIFFERENTIAL [id number] 05:37:00 Test Item Value Reference Range Interpretation Comments STAIN ACCEPTABILITY (test code = STN ACCEPTABLE) MORPHOLOGY COMMENT (test code = MOC) PLATELET ESTIMATE (test code = PLTEST) PLATELET MORPHOLOGY (test code = PLTMORPH) CBC W/AUTO [id number] 05:37:00 Test Item Value Reference Range Interpretation [...] SCAN NEEDED (test code = MDIFF) DIFFERENTIAL [id number] 05:37:00 Test Item Value Reference Range Interpretation Comments STAIN ACCEPTABILITY (test code = STN ACCEPTABLE) CABOT RINGS (test code = CAB) MORPHOLOGY COMMENT (test code = MOC) PLATELET ESTIMATE (test code = PLTEST) PLATELET MORPHOLOGY (test code = PLTMORPH) [id number] 16:06:00 Test Item Value Reference Range Interpretation Comments GLUBED (test code 237 mg/dL 74-106 H Performed by certified = GLUBED) [facility]~ [id number] 12:35:00 Test Item Value Reference Range Interpretation Comments GLUBED (test code 271 mg/dL 74-106 H Performed by certified = GLUBED) [facility] [id number] 08:08:00 Test Item Value Reference Range Interpretation Comments GLUBED (test code 233 mg/dL 74-106 H Performed by certified = GLUBED) [facility]~ CBC W/AUTO [id number] 07:56:00 Test Item Value Reference Range Interpretation [...] SCAN NEEDED (test code = MDIFF) DIFFERENTIAL [id number] 07:56:00 Test Item Value Reference Range Interpretation Comments STAIN ACCEPTABILITY (test STAIN ACCEPTABLE code = STN ACCEPTABLE) MORPHOLOGY COMMENT (test NORMAL code = MOC) PLATELET ESTIMATE (test code ADEQUATE = PLTEST) PLATELET MORPHOLOGY (test NORMAL code = PLTMORPH) COMPREHENSIVE METABOLIC [id number] 05:54:00 Test Item Value Reference Range Interpretation [...] >3 months. [Automated mess age] The system Class Messenger generated this result transmitted ref erence range: [...] ALKP) to change in reagent. CBC W/AUTO [id number] 05:12:00 Test Item Value Reference Range Interpretation [...] SCAN NEEDED (test code = MDIFF) DIFFERENTIAL [id number] 05:12:00 Test Item Value Reference Range Interpretation Comments STAIN ACCEPTABILITY (test code = STN ACCEPTABLE) MORPHOLOGY COMMENT (test code = MOC) PLATELET ESTIMATE (test code = PLTEST) PLATELET MORPHOLOGY (test code = PLTMORPH) CBC W/AUTO [id number] 05:12:00 Test Item Value Reference Range Interpretation [...] SCAN NEEDED (test code = MDIFF) DIFFERENTIAL [id number] 05:12:00 Test Item Value Reference Range Interpretation Comments STAIN ACCEPTABILITY (test code = STN ACCEPTABLE) CABOT RINGS (test code = CAB) MORPHOLOGY COMMENT (test code = MOC) PLATELET ESTIMATE (test code = PLTEST) PLATELET MORPHOLOGY (test code = PLTMORPH) CBC W/AUTO [id number] 05:11:00 Test Item Value Reference Range Interpretation [...] SCAN NEEDED (test code = MDIFF) DIFFERENTIAL [id number] 05:11:00 Test Item Value Reference Range Interpretation Comments STAIN ACCEPTABILITY (test code = STN ACCEPTABLE) CABOT RINGS (test code = CAB) MORPHOLOGY COMMENT (test code = MOC) PLATELET ESTIMATE (test code = PLTEST) PLATELET MORPHOLOGY (test code = PLTMORPH) CBC W/AUTO [id number] 05:11:00 Test Item Value Reference Range Interpretation [...] SCAN NEEDED (test code = MDIFF) DIFFERENTIAL [id number] 05:11:00 Test Item Value Reference Range Interpretation Comments STAIN ACCEPTABILITY (test code = STN ACCEPTABLE) CABOT RINGS (test code = CAB) MORPHOLOGY COMMENT (test code = MOC) PLATELET ESTIMATE (test code = PLTEST) PLATELET MORPHOLOGY (test code = PLTMORPH) [id number] 20:37:00 Test Item Value Reference Range Interpretation Comments GLUBED (test code = 297 mg/dL 74-106 H Performe d by certified GLUBED) 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 [Automated mess age] The system Class Messenger generated this result transmitted ref erence range: [...] range due ALKP) to change in reagent. 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 presentation operator at [facility] LIPID PROFILE (CORONARY RISK)2020-08-30 09:41:00 Test Item [...] (test 115 mg/dL 100-129 N RN LIDIA LUAGILDA, CONTACT code = LDL) PHYSICIAN IMMED IATELY [...] is a direct measurement.=== ====== THYROID STIMULATING [id number] 09:41:00 Test Item Value Reference Range Interpretation Comments THYROID STIMULATING 2.255 uIU/mL 0.36-3.74 N TSH REFE RENCE HORMONE (test code = RANGES: EUTHYROID: TSH) 0.35 - 4.3 mIU/mL HYPO : > 5.5 mIU/mL HYPER : < 0.35 mIU/mL CBC W/AUTO [id number] 09:11:00 Test Item Value Reference Range Interpretation [...] SCAN NEEDED (test code = MDIFF) DIFFERENTIAL [id number] 09:11:00 Test Item Value Reference Range Interpretation Comments STAIN ACCEPTABILITY (test STAIN ACCEPTABLE code = STN ACCEPTABLE) POLYCHROMASIA (test code = 1+ POLC) HYPOCHROMIA (test code = 1+ HYPO) ANISOCYTOSIS (test code = 1+ ANISO) MICROCYTOSIS (test code = 1+ MICR) PLATELET ESTIMATE (test code ADEQUATE = PLTEST) PLATELET MORPHOLOGY (test NORMAL code = PLTMORPH) [id number] 08:40:00 Test Item Value Reference Range Interpretation Comments GLYCOSYLATED HEMOGLOBIN 11.0 % HbA1 WILLA MATOS (HA1C) (test code = DIAGNOSI S: HbA1C GLYHGB) (%) ---- ------ Diab etic >6.4Prediabetes 5.7 - 6.4Normal <5.7 ESTIMATED AVERAGE 269 MG/DL GLUCOSE (test code = EAG) CBC W/AUTO [id number] 08:23:00 Test Item Value Reference Range Interpretation [...] SCAN NEEDED (test code = MDIFF) DIFFERENTIAL [id number] 08:23:00 Test Item Value Reference Range Interpretation Comments STAIN ACCEPTABILITY (test code = STN ACCEPTABLE) CABOT RINGS (test code = CAB) MORPHOLOGY COMMENT (test code = MOC) PLATELET ESTIMATE (test code = PLTEST) PLATELET MORPHOLOGY (test code = PLTMORPH) CBC W/AUTO [id number] 08:23:00 Test Item Value Reference Range Interpretation [...] SCAN NEEDED (test code = MDIFF) DIFFERENTIAL [id number] 08:23:00 Test Item Value Reference Range Interpretation Comments STAIN ACCEPTABILITY (test code = STN ACCEPTABLE) MORPHOLOGY COMMENT (test code = MOC) PLATELET ESTIMATE (test code = PLTEST) PLATELET MORPHOLOGY (test code = PLTMORPH) CBC W/AUTO [id number] 08:22:00 Test Item Value Reference Range Interpretation [...] SCAN NEEDED (test code = MDIFF) DIFFERENTIAL [id number] 08:22:00 Test Item Value Reference Range Interpretation Comments STAIN ACCEPTABILITY (test code = STN ACCEPTABLE) CABOT RINGS (test code = CAB) MORPHOLOGY COMMENT (test code = MOC) PLATELET ESTIMATE (test code = PLTEST) PLATELET MORPHOLOGY (test code = PLTMORPH) CBC W/AUTO [id number] 08:22:00 Test Item Value Reference Range Interpretation [...] SCAN NEEDED (test code = MDIFF) DIFFERENTIAL [id number] 08:22:00 Test Item Value Reference Range Interpretation Comments STAIN ACCEPTABILITY (test code = STN ACCEPTABLE) CABOT RINGS (test code = CAB) MORPHOLOGY COMMENT (test code = MOC) PLATELET ESTIMATE (test code = PLTEST) PLATELET MORPHOLOGY (test code = PLTMORPH) - CT ABD PELVIS [id number] 20:38:00 [facility]Name: GUERRERORAN : 1975 Sex: M Name: RAN GUERRERO [facility] : Age/S: 44 / M [address] Unit #: [id number] Loc: [place] [address] Phys: Ban Arnold NP Acct: [id number] Dis Date: Status: REG ER PHONE #: [phone] Exam Date: 08/29/20202022 FAX #: [phone] 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 CC: Ban Arnold NP Technologist:RT HALLE(R) CT CTDI: DLP: Trnscb Date/Time: 08/29/2020 (2037) Antony Orig Print D/T: S: 08/29/2020 (2040) PAGE 1 Signed Report- XR CHEST 1 V 2020-08-29 20:14:00 [facility])Name: RAN GUERRERO : 1975 Sex: M FAX: Ban Arnold NP [place]: St: REG Name: RAN GUERRERO [facility] : 1975 Age/S: 44/M [address] [facility] Unit #: [id number] Loc: [place] [address] Phys: Ban Arnold NP Acct: [id number] Dis Date: Status: REG ER PHONE #: [phone] Exam Date: 08/29/20201918 FAX #: [phone] Reason: CODE SEPSIS EXAMS: CPT CODE: [id number] XR CHEST 1 V [id number] EXAM: Chest X- ray, 1 view; CLINICAL HISTORY: Code sepsis; FINDINGS: The lungs are clear, no infiltrates, no edema; no effusions; no pneumothorax; normal cardiomediastinal silhouette. Old, consolidated fractures of the 6th and 7th ribs on the right. IMPRESSION: No evidence of active cardiopulmonary disease. Location code: [facility] at 2014 Reported and signed by: Pillo Basilio M.D. CC: Ban Arnold NP Technologist: Johnathan OSORIO) Trnscrd Date/Time/By: 08/29/2020 (2013) : By: SabihaGRW Orig Print D/T: S: 08/29/2020 (2017) PAGE 1 Signed ReportCOVID 19 INHOUSE [id number] 20:02:00 Test Item Value Reference Range Interpretation Comments COVID 19 INHOUSE AG (test code = NEGATIVE NEGATIVE [id number]) BASIC METABOLIC [id number] 19:53:00 Test Item Value Reference Range Interpretation [...] >3 months. [Automated mess age] The system Class Messenger generated this result transmitted ref erence range: >=60. Th e reference range was not used to int erpret this result as normal/abnormal . CREATININE (test 1.00 mg/dL 0.7-1.3 N code = CREAT) BUN/CREATININE RATIO 11.6 10-20 N (test code = BUN/CREA) CALCIUM (test code = 8.5 mg/dL 8.5-10.1 N CA) HEPATIC FUNCTION [id number] 19:53:00 Test Item Value Reference Range Interpretation [...] range due ALKP) to change in reagent. [id number] 19:53:00 Test Item Value Reference Range Interpretation Comments TROPONIN-I (test code = TROPI) < 0.006 ng/mL 0-0.045 N B-TYPE NATRIURETIC [id number] 19:52:00 Test Item Value Reference Range Interpretation Comments B-TYPE NATRIURETIC PEPTIDE 20.0 pgram/mL 0-100 N (test code = BNP) LACTIC [id number] 19:33:00 Test Item Value Reference Range Interpretation Comments LACTIC ACID (test code = LACT) 1.3 mmol/L 0.4-1.9 N CBC W/AUTO [id number] 19:15:00 Test Item Value Reference Range Interpretation [...] code = 0.00 K/mm3 0.0-0.1 N NRBC#) [place] [id number] 07:04:53 Test Item Value Reference Range Interpretation Comments [place] Level (test code = 0.52 mmol/L 0.60-1.20 L [place] Level) [place] [id number] 06:31:16 Test Item Value Reference Range Interpretation Comments [place] Level (test code = 0.39 mmol/L 0.60-1.20 L [place] Level) RPR [id number] 03:58:40 Test Item Value Reference Range Interpretation [...] = 08/26/2019 N Expiration Dt) Thyroid Stimulating [id number] 02:50:00 Test Item Value Reference Range Interpretation Comments TSH (test code = TSH) 1.590 mIU/mL 0.270-4.200 Lipid [id number] 02:33:22 Test Item Value Reference Range Interpretation [...] LDL/HDL Ratio=L DL Calc/HDL Chol Comprehensive Metabolic [id number] 18:09:30 Test Item Value Reference Range Interpretation [...] A/G 1.6 ratio N Ratio) Comprehensive Metabolic [id number] 18:09:30 Test Item Value Reference Range Interpretation [...] National Kidney Foundation, http://nkdep.ni h.gov Comprehensive Metabolic [id number] 18:09:30 Test Item Value Reference Range Interpretation [...] Foundation, http://nkdep.ni h.gov Complete Blood Count with [id number] 17:49:02 Test Item Value Reference Range Interpretation [...] code = IPF) 0 % N Automated [id number] 17:49:02 Test Item Value Reference Range Interpretation Comments Neutro Auto (test code = Neutro 60.9 % 36.0-70.0 Auto) Lymph Auto (test code = Lymph Auto) 28.2 % 12.0-44.0 [place] Auto (test code = [place] Auto) 8.0 % 0.0-11.0 Eos, Auto (test code = Eos, Auto) 1.7 % 0.0-7.0 Basophil Auto (test code = Basophil 0.7 % 0.0-2.0 Auto) Neutro Absolute (test code = Neutro 8.0 x10 1.6-7.4 H Absolute) Lymph Absolute (test code = Lymph 3.71 x10 .50-4.60 Absolute) [place] Absolute (test code = [place] 1.06 x10 .00-1.20 Absolute) Eos Absolute (test code = Eos 0.23 x10 0.00-0.74 Absolute) Baso Absolute (test code = Baso 0.09 x10 0.00-0.21 Absolute) IG [id number] 17:49:02 Test Item Value Reference Range Interpretation Comments IG (test code = IG) 0.5 % 0.0-5.0 IG Abs (test code = IG Abs) 0 x10 N Comprehensive Metabolic [id number] 13:30:37 Test Item Value Reference Range Interpretation [...] ratio N = A/G Ratio) Comprehensive Metabolic [id number] 13:30:37 Test Item Value Reference Range Interpretation [...] the National Kidney Foundation, http://nkdep.ni h.gov Alcohol [id number] 13:30:37 Test Item Value Reference Range Interpretation Comments Ethanol Level (test <0.00 g/dL 0.00-0.01 Intoxica annita 0.080 g/dL code = Ethanol or more Level) Ethanol Inst (test <0 N code = Ethanol Inst) Comprehensive Metabolic [id number] 13:30:37 Test Item Value Reference Range Interpretation [...] Foundation, http://nkdep.ni h.gov Drugs of Abuse Urine [id number] 13:26:52 Test Item Value Reference Range Interpretation [...] Cannabinoid Screen Ur) Complete Blood Count with [id number] 13:17:47 Test Item Value Reference Range Interpretation [...] code = IPF) 0 % N Automated [id number] 13:17:47 Test Item Value Reference Range Interpretation Comments Neutro Auto (test code = Neutro 67.8 % 36.0-70.0 Auto) Lymph Auto (test code = Lymph Auto) 22.2 % 12.0-44.0 [place] Auto (test code = [place] Auto) 7.3 % 0.0-11.0 Eos, Auto (test code = Eos, Auto) 1.4 % 0.0-7.0 Basophil Auto (test code = Basophil 0.7 % 0.0-2.0 Auto) Neutro Absolute (test code = Neutro 10.6 x10 1.6-7.4 H Absolute) Lymph Absolute (test code = Lymph 3.48 x10 .50-4.60 Absolute) [place] Absolute (test code = [place] 1.14 x10 .00-1.20 Absolute) Eos Absolute (test code = Eos 0.22 x10 0.00-0.74 Absolute) Baso Absolute (test code = Baso 0.11 x10 0.00-0.21 Absolute) IG [id number] 13:17:47 Test Item Value Reference Range Interpretation Comments IG (test code = IG) 0.6 % 0.0-5.0 IG Abs (test code = IG Abs) 0 x10 N
[2021-07-09 08:49] LABS: Absolute Lymphocytes (CBC) 2.8 K/uL (0.7-4.9); Hematocrit 38.8 % (39.6-49.0); Lymphocytes % 8.9 % (15.3-44.8); MPV 7.4 fL (7.6-11.3); RBC Red Blood Cell Count 4.93 M/uL (4.33-5.43)
[2021-07-09] MEDS ORDERED: ONDANSETRON 4 MG/2 ML VIAL ONE (09:13)
[2021-07-09] MEDS ORDERED: FENTANYL CITR 100 MCG/2 ML ONE ×2 (09:13→11:14)
[2021-07-09 09:31] LABS: ALT/SGPT 18 U/L (12-78); AST/SGOT 14 U/L (15-37); Albumin 2.8 g/dL (3.4-5.0); Alkaline Phosphatase 160 U/L (45-117); BUN Blood Urea Nitrogen 18 mg/dL (7-18); Bicarbonate 31 mmol/L (21-32); Bilirubin Direct 0.1 mg/dL (0-0.2); Bilirubin Total 0.4 mg/dL (0.2-1.0); Glucose Level 131 mg/dL (74-106); Lipase 33 U/L (73-393); Potassium 3.2 mmol/L (3.5-5.1); Sodium Level 134 mmol/L (136-145)
[2021-07-09 10:13] LABS: Anisocytosis 1+; Blood Morphology Comment NOTED (NOT SEEN); Platelet Estimate ADEQ
[2021-07-09 10:14] LABS: Hypochromasia 1+
[2021-07-09 10:53] LABS: Protime INR 1.31
[2021-07-09] MEDS ORDERED: NA CHLORIDE 0.9% 100 ML IV ONE (11:37)
[2021-07-09] MEDS ORDERED: NA CHLORIDE 0.9% 1,000 ML ONE (11:37)
[2021-07-09] MEDS ORDERED: PIPERACIL/TAZO 3.375 GM VIAL IV ONE (11:37)
--- NOTE | 2021-07-09 12:06 | RAD REPORT ---
EXAM DESCRIPTION: CTAbdomen Pelvis W Contrast - 07/09/2021 11:49 am CLINICAL HISTORY: Abdominal pain. CONSTIPATION COMPARISON: Abdomen Pelvis W Contrast dated 12/26/2020; Abdomen Pelvis W Contrast dated 11/07/2020 TECHNIQUE: Biphasic CT imaging of the abdomen and pelvis was performed with 100 ml non-ionic IV cont rast. All CT scans are performed using dose optimization technique as appropriate and may include automated exposure control or mA/KV adjustment according to patient size. FINDINGS: Tiny nodules are present in the left lower lobe, largest measuring 6 mm (image 2/ 177).Old left posterior rib fractures noted. The liver shows no gross solid lesion. IVC filter is in place. The spleen, pancreas, adrenal glands a nd kidneys are within normal limits. No bowel obstruction, free air, free fluid or abscess. Significant retained stool is present througho ut the colon. Asymmetric wall thickening is seen involving the mid rectum. The appendix is normal. M arkedly abnormal irregular ulcerated left inguinal region mass is seen. No suspicious bony findings. IMPRESSION: Significant fecal retention is seen throughout the colon. There is wall thickening seen mid rectum measuring up to 20 mm. Neoplasia is a possibility and followup colonoscopy would be recomm ended. Markedly abnormal soft tissue mass with ulceration left inguinal region, likely neoplastic. Direct cl inical assessment would be suggested.
[2021-07-09] MEDS ORDERED: MINERAL OIL ENEMA 135 ML BTL PR ONE (13:37)
[2021-07-09 16:42] LABS: Urine Blood Negative (Negative); Urine Glucose Negative (Negative); Urine Protein Negative (Negative); Urine Specific Gravity 1.015 (1.005-1.030); Urine pH 6.5 (5.0-7.0)
[2021-07-09 17:13] LABS: Urine Bacteria <20 /HPF (NONE SEEN); Urine Mucus 1+ /HPF (NONE SEEN); Urine RBC <5 /HPF (NONE SEEN)
--- NOTE | 2021-07-09 17:58 | ER ---
Nurse's Notes [facility] Name: Yassine Guerrero Jr Age: 45 yrs Sex: Male : 1975 Arrival Date: 07/09/2021 Time: 07:53 Bed 16 Private MD: Lito Chao Diagnosis: Other specified diseases of anus and rectum-rectal mass;Constipation Presentation: 07/09 08:00 Chief complaint: Patient states: brought in by ems for abd wound and bleeding noted. Pt ic1 states he has hx of cx, but is currently not receiving treatment. Coronavirus screen: Vaccine status:. Ebola Screen: No symptoms or risks identified at this time. Initial Sepsis Screen: Does the patient meet any 2 criteria? HR > 90 bpm. Does the patient have a suspected source of infection? No. Patient's initial sepsis screen is negative. Risk Assessment: Do you want to hurt yourself or someone else? Patient reports no desire to harm self or others. Onset of symptoms is unknown. 08:00 Method Of Arrival: EMS ic1 08:00 Acuity: IRINEO 3 ic1 Triage Assessment: 08:01 General: Appears in no apparent distress. uncomfortable, Behavior is calm, cooperative. ic1 Pain: Complains of pain in left upper quadrant and abdomen diffusely. Historical: - Home Meds: 08:01 gabapentin Oral [Active]; Glipizide Oral [Active]; Metformin Oral [Active]; ic1 - PMHx: 08:01 Bipolar disorder; CPVC; HPV; PTSD; Rheumatoid Arthritis; ic1 - PSHx: 08:01 Lymphnode removal; ic1 - Social history:: Smoking status: . Screenin:55 Abuse screen: Denies threats or abuse. Denies injuries from another. Nutritional cb5 screening: No deficits noted. Tuberculosis screening: No symptoms or risk factors identified. Assessment: 07:55 General: Appears in no apparent distress. comfortable, Behavior is calm, cooperative, cb5 appropriate for age. Pain: Complains of pain in abdomen and abdomen diffusely and left upper quadrant Pain currently is 4 out of 10 on a pain scale. Neuro: Level of Consciousness is awake, alert, obeys commands. Cardiovascular: No deficits noted. Respiratory: No deficits noted. GI: Abdomen is distended, obese, pt has large wound left abd radiating down to pelvic area. : No deficits noted. EENT: No deficits noted. Derm: No deficits noted. Musculoskeletal: No deficits noted. 08:30 Reassessment: Patient and/or family updated on plan of care and expected duration. Pain cb5 level reassessed. 09:30 General: Behavior is calm, cooperative. cb5 10:30 General: ER techs changed patients linens and sheets, pericare compelte. . cb5 12:00 Reassessment: Patient and/or family updated on plan of care and expected duration. Pain cb5 level reassessed. 13:00 Reassessment: Patient and/or family updated on plan of care and expected duration. Pain cb5 level reassessed. 14:45 Reassessment: pt had a small bowel movement.. cb5 15:00 Reassessment: Patient and/or family updated on plan of care and expected duration. Pain cb5 level reassessed. 16:10 General: lab is at bedside obtaining blood cultures, will administer antibiotic cb5 afterwards. Vital Signs: 07:58 Pulse 126; Resp 18; Temp 98.9(O); Pulse Ox 99% on 2 lpm NC; ic1 09:00 BP 139 / 70; Pulse 131; Resp 18; Temp 98.6; Pulse Ox 98% ; Pain 2/10; cb5 09:43 BP 137 / 74; Pulse 137; Resp 24; Temp 98.5; Pulse Ox 99% ; mb7 11:28 BP 147 / 77; Pulse 120; Resp 20; Pulse Ox 100% ; mb7 11:29 Weight 122.47 kg; cb5 16:51 BP 143 / 70; Pulse 108; Resp 16; Pulse Ox 98% ; Pain 0/10; cb5 17:42 BP 106 / 86; Pulse 77; Resp 16; Temp 97.6; Pulse Ox 98% ; Pain 0/10; cb5 18:30 BP 110 / 78; Pulse 74; Resp 16; Temp 98.6; Pulse Ox 98% ; Pain 0/10; cb5 ED Course: 07:53 Patient arrived in ED. ic1 07:55 Call light in reach. Side rails up X 1. Side rails up X2. cb5 07:57 [facility] pm1 07:57 Cullen Ornelas MD is Attending Physician. pm1 07:58 Arm band placed on right wrist. ic1 08:01 Triage completed. ic1 08:12 Inserted saline lock: 20 gauge in right antecubital area, using aseptic technique. mb7 08:12 EKG done, by ED staff, reviewed by Preet Gutierrez NP. mb7 08:26 Perla Kim, RN is Primary Nurse. cb5 08:26 Basic Metabolic Panel Sent. cb5 08:26 CBC with Diff Sent. cb5 08:26 Hepatic Function Sent. cb5 08:26 Lipase Sent. cb5 10:30 Radiology exam delayed due to patient is not appropriately dressed for the exam at this md1 time. pt states he urinated and possibly defecated all over him self and bedding. caramel cutter hand found patient laying on his side in stretcher naked. pt states he is constipated and trying to use the restroom. 10:34 First set of blood cultures drawn by me. Inserted saline lock: 20 gauge in right hand, dh3 using aseptic technique. Blood collected. 10:37 Second set of blood cultures drawn by me. dh3 10:43 PT-INR Sent. dh3 10:43 Procalcitonin Sent. dh3 10:43 Lactate Sent. dh3 10:58 Lito Chao MD is Private Physician. as 11:48 CT Abd/Pelvis - PO and IV Contrast In Process Unspecified. EDMS 12:05 COVID-19/FLU A+B (Document "Date of Onset" if Symptomatic) Sent. cb5 17:56 Lito Chao MD is Referral Physician. pm1 18:58 No provider procedures requiring assistance completed. cb5 Administered Medications: 08:35 Drug: NS 0.9% 1000 ml Route: IV; Rate: 1000 ml; Site: right antecubital; cb5 09:32 Drug: fentaNYL (PF) 50 mcg Route: IVP; Site: left antecubital; ic1 09:32 Drug: Zofran (Ondansetron) 4 mg Route: IVP; Site: left antecubital; ic1 10:20 Drug: Zosyn (piperacillin-tazobactam) 3.375 grams Route: IVPB; Infused Over: 60 mins; cb5 Site: right antecubital; 11:15 Drug: fentaNYL (PF) 50 mcg Route: IVP; Site: right antecubital; cb5 12:05 Drug: NS 0.9% (30 ml/kg) 30 ml/kg Route: IV; Rate: bolus; Site: right antecubital; cb5 13:51 Not Given (n/aa): Soap italo enema 1 application [place] once cb5 13:51 Drug: Mineral Oil Enema 118 ml Route: [place]; cb5 Outcome: 17:57 Discharge ordered by MD. pm1 18:59 Discharged to home cb5 18:59 Condition: stable 18:59 Discharge instructions given to patient. 18:59 Patient left the ED. cb5 Signatures: Dispatcher [employer] EDMS Trisha Vargas Patrick, INTERNATIONAL RELATIONS TEACHER INTERNATIONAL RELATIONS TEACHER pm1 Angelica Li3 Marcie Marin md1 Mehreen Chavez Iesha RN RN ic1 Perla Kim RN RN cb5
--- NOTE | 2021-07-09 17:58 | EDPHYS ---
Physician Documentation [facility] – [place], [place] Name: Yassine Guerrero Jr Age: 45 yrs Sex: Male : 1975 Arrival Date: 07/09/2021 Time: 07:53 Bed 16 Private MD: Lito Chao ED Physician Cullen Ornelas HPI: 07/09 08:16 This 45 yrs old Male presents to ER via EMS with complaints of Constipation. pm1 08:16 The patient presents with Constipation. Onset: The symptoms/episode began/occurred 2.5 pm1 week(s) ago. Associated signs and symptoms: Pertinent positives: Abdominal pain and rectal pain, Pertinent negatives: nausea and vomiting, chest pain, dysuria, fever, shortness of breath. The symptoms are described as crampy. Modifying factors: the symptoms are aggravated by Patient reports that the stool hurts as he is trying to defecate so he tries to hold it in instead. Severity of pain: in the emergency department the pain is actually worse. The patient has not recently seen a physician. 08:16 Patient also reports bleeding from his cancerous groin mass that is a chronic issue pm1 that has resolved with the dressing applied by EMS. Historical: - Home Meds: 08:01 gabapentin Oral [Active]; Glipizide Oral [Active]; Metformin Oral [Active]; ic1 - PMHx: 08:01 Bipolar disorder; CPVC; HPV; PTSD; Rheumatoid Arthritis; ic1 - PSHx: 08:01 Lymphnode removal; ic1 - Social history:: Smoking status: . ROS: 08:16 Constitutional: Negative for fever, chills, and weight loss, Cardiovascular: Negative pm1 for chest pain, palpitations, and edema, Respiratory: Negative for shortness of breath, cough, wheezing, and pleuritic chest pain. 08:16 Back: Negative for injury and pain, MS/Extremity: Negative for injury and deformity, Skin: Negative for injury, rash, and discoloration. Bleeding from groin mass that has resolved 08:16 Neuro: Negative for headache, weakness, numbness, tingling, and seizure. 08:16 Abdomen/GI: Positive for abdominal pain, constipation, Negative for nausea, vomiting, and diarrhea. 08:16 All other systems are negative. Exam: 08:16 Constitutional: This is a well developed, well nourished patient who is awake, alert, pm1 and in no acute distress. Head/Face: Normocephalic, atraumatic. 08:16 Back: No spinal tenderness. No costovertebral tenderness. Full range of motion. 08:16 MS/ Extremity: Pulses equal, no cyanosis. Neurovascular intact. Full, normal range of motion. 08:16 Eyes: Exam is negative for acute changes, Periorbital structures: appear normal, Pupils: no acute changes, Extraocular movements: no acute changes. 08:16 ENT: Exam is negative for acute changes, Mouth: no acute changes, Lips: normal, moist, Oral mucosa: normal, pink and intact, moist. 08:16 Cardiovascular: Rate: tachycardic, Rhythm: regular, Pulses: no pulse deficits are appreciated, Heart sounds: normal, normal S1and S2. 08:16 Respiratory: Exam negative for acute changes, respiratory distress, shortness of breath. 08:16 Abdomen/GI: Inspection: obese Palpation: soft, in all quadrants, mild abdominal tenderness, in the abdomen diffusely. 08:16 Skin: Appearance: normal except for affected area, Large left groin fungated mass. 08:16 Neuro: Exam negative for acute changes, Orientation: is normal, Mentation: is normal, Motor: is normal, moves all fours. Vital Signs: 07:58 Pulse 126; Resp 18; Temp 98.9(O); Pulse Ox 99% on 2 lpm NC; ic1 09:00 BP 139 / 70; Pulse 131; Resp 18; Temp 98.6; Pulse Ox 98% ; Pain 2/10; cb5 09:43 BP 137 / 74; Pulse 137; Resp 24; Temp 98.5; Pulse Ox 99% ; mb7 11:28 BP 147 / 77; Pulse 120; Resp 20; Pulse Ox 100% ; mb7 11:29 Weight 122.47 kg; cb5 16:51 BP 143 / 70; Pulse 108; Resp 16; Pulse Ox 98% ; Pain 0/10; cb5 17:42 BP 106 / 86; Pulse 77; Resp 16; Temp 97.6; Pulse Ox 98% ; Pain 0/10; cb5 18:30 BP 110 / 78; Pulse 74; Resp 16; Temp 98.6; Pulse Ox 98% ; Pain 0/10; cb5 Procedures: 16:53 Fecal disimpaction: digital disimpaction was performed, with a large amount of stool pm1 expressed. The patient tolerated the intervention well, Nnps Perla BISWAS. MDM: 08:02 Patient medically screened. pm1 16:50 Physician consultation: Lito Chao MD regarding patient's condition, Would like pm1 update on urine results after disimpaction. 16:53 ED course: Patient able to urinate by himself and sample sent to lab. Patient tolerated pm1 disimpaction well. 17:49 Data reviewed: vital signs. Data interpreted: Pulse oximetry: on room air is 98 %. pm1 Interpretation: normal. 17:49 Counseling: I had a detailed discussion with the patient and/or guardian regarding: the pm1 historical points, exam findings, and any diagnostic results supporting the discharge/admit diagnosis, lab results, radiology results. 17:54 Physician consultation: Lito Chao MD was called at 17:54, was contacted at 17:54, pm1 regarding consult, patient's condition, Resolution of pain and normalization of vital signs with patient disimpaction. Urine negative for infection. Recommended discharge to home with lactulose and colace. 07/09 08:13 Order name: Basic Metabolic Panel; Complete Time: 09:36 pm1 07/09 08:13 Order name: CBC with Diff; Complete Time: 10:57 pm1 07/09 08:13 Order name: Hepatic Function; Complete Time: 09:36 pm1 07/09 08:13 Order name: Lipase; Complete Time: 09:36 pm1 07/09 09:24 Order name: Manual Differential; Complete Time: 10:57 EDMS 07/09 09:55 Order name: Blood Culture Adult (2) pm1 07/09 08:13 Order name: CT Abd/Pelvis - PO and IV Contrast; Complete Time: 12:16 pm1 07/09 09:55 Order name: Procalcitonin; Complete Time: 11:35 pm1 07/09 09:55 Order name: Lactate; Complete Time: 11:35 pm1 07/09 09:59 Order name: PT-INR; Complete Time: 10:57 pm1 07/09 09:59 Order name: Urine Microscopic Only; Complete Time: 17:30 pm1 07/09 16:42 Order name: Urine Dipstick-Ancillary; Complete Time: 16:54 EDMS 07/09 08:13 Order name: IV Saline Lock; Complete Time: 08:26 pm1 07/09 08:13 Order name: Labs collected and sent; Complete Time: 10:44 pm1 07/09 11:12 Order name: EKG; Complete Time: 11:13 pm1 07/09 11:12 Order name: EKG - Nurse/Tech; Complete Time: 11:30 pm1 07/09 15:56 Order name: Vital Signs; Complete Time: 18:50 pm1 Administered Medications: 08:35 Drug: NS 0.9% 1000 ml Route: IV; Rate: 1000 ml; Site: right antecubital; cb5 09:32 Drug: fentaNYL (PF) 50 mcg Route: IVP; Site: left antecubital; ic1 09:32 Drug: Zofran (Ondansetron) 4 mg Route: IVP; Site: left antecubital; ic1 10:20 Drug: Zosyn (piperacillin-tazobactam) 3.375 grams Route: IVPB; Infused Over: 60 mins; cb5 Site: right antecubital; 11:15 Drug: fentaNYL (PF) 50 mcg Route: IVP; Site: right antecubital; cb5 12:05 Drug: NS 0.9% (30 ml/kg) 30 ml/kg Route: IV; Rate: bolus; Site: right antecubital; cb5 13:51 Not Given (n/aa): Soap italo enema 1 application GA once cb5 13:51 Drug: Mineral Oil Enema 118 ml Route: GA; cb5 Disposition: 19:39 Co-signature as Attending Physician, Cullen Ornelas MD I agree with the assessment and kdr plan of care. Disposition Summary: 07/09/21 17:57 Discharge Ordered Location: Home pm1 Problem: new pm1 Symptoms: have improved pm1 Condition: Stable pm1 Diagnosis - Other specified diseases of anus and rectum - rectal mass(07/09/21 17:57) pm1 - Constipation pm1 Followup: pm1 - With: Lito Chao MD - When: 2 - 3 days - Reason: Recheck today's complaints, Continuance of care, Re-evaluation by your physician Discharge Instructions: - Discharge Summary Sheet pm1 - Constipation, Adult pm1 - Colorectal Cancer pm1 Forms: - Medication Reconciliation Form pm1 - Thank You Letter pm1 - Antibiotic Education pm1 - Prescription Opioid Use pm1 Prescriptions: - Colace 100 mg Oral Tablet - take 1 tablet by ORAL route every 12 hours; 14 tablet; Refills: 0, Product pm1 Selection Permitted - Lactulose 10 gram/15 mL Oral Solution - take 30 milliliters by ORAL route once daily; 300 milliliter; Refills: 0, pm1 Product Selection Permitted Signatures: Dispatcher [employer] EDAR Cullen Ornelas MD MD kdr Marinas, Patrick, NP MACHINIST HELPER pm1 Crystal Ray RN RN ic1 Perla Kim RN RN cb5 Corrections: (The following items were deleted from the chart) 17:57 17:57 Other specified diseases of anus and rectum pm1 pm1
[2021-07-09 19:32] VITALS: O2SAT 98
[2021-07-09 19:35] VITALS: BP 110/78; TEMP 98.6
--- NOTE | 2021-07-11 07:30 | EKG ---
Test Date: 2021-07-09 Test Time: 07:03:26 [employer]ist: NATE MEASUREMENT RESULTS: Intervals: Rate: 125 CT: 156 QRSD: 84 QT: 298 QTc: 430 [place]: P: 81 CT: 156 QRS: 100 T: 74 INTERPRETIVE STATEMENTS: Sinus tachycardia Right atrial enlargement Rightward axis Pulmonary disease pattern Abnormal ECG Compared to ECG 06/14/2021 12:05:22 Right-axis deviation now present Sinus rhythm no longer present Electronically Signed On 07-11-21 07:23:13 CDT by Jose Rea
== END 2021-07-09 18:59 | disposition home or self-care (01) ==
LOC: ER 07:49
DX: K59.00 Constipation, unspecified (principal); K62.89 Other specified diseases of anus and rectum; F31.9 Bipolar disorder, unspecified
CPT/HCPCS: 93005; 87040 ×2; 85025; 80048; 36415; 85610; 80076; 83605; 83690; 84145; 74177; 99284; Q9967; J2543; J3010 ×2; J7030; J2405; 81003; 81015